=== PATIENT | male | born 1945 | race Caucasian/White ===

== ENCOUNTER 2017-03-05 13:48 | Inpatient (IN) | payer OTHER ==
[2017-03-05] VITALS (7 sets, daily range): BP systolic 169–192; BP diastolic 84–109; PULSE 79–99; TEMP 36.7–37.5; O2SAT 92–95; Ht 170.2 cm; Wt 104.4 kg
[~2017-03-05] VITALS: Ht 170.2 cm; Wt 104.4 kg
[~2017-03-05 13:48] MED LIST: ALBUAER9 INH; ALL300 PO; ASPI81TA28 PO; ATOR10TA82 PO; CLON1TAB3 PO; FERR1TAB24 PO; FURO40TA3 PO; FURO80TA63 PO; GLC5 PO; HYDR100T3 PO; LVMIPEN SQ; METO50TA16 PO; OMEP40CA PO; OXGN; PARO30TA PO; POTA20TA16 PO
[2017-03-05] MEDS ORDERED: OMEP40CA41 PO (14:34)
[2017-03-05] MEDS ORDERED: FERR1TAB61 PO (14:34)
[2017-03-05] MEDS ORDERED: ALLO300T2 PO (14:34)
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
[2017-03-05] MEDS ORDERED: ALBUT/IPRATROP 3MG/0.5MG NEB 3 ML VIAL INH STA (14:45)
[2017-03-05 14:53] LABS: BASO % 0.3 %; BASO ABS # 0.03 K/uL (0-0.2); COMPLETE YES; HEMATOCRIT 44.1 % (42-52); IG% 0.5 %; LYMPH % 10.7 %; LYMPH ABS # 1.14 K/uL (1.2-3.4); MEAN CELL VOLUME 87.5 fL (80-100); MONO % 8.1 %; NEUT % 75.4 %; PLATELET COUNT 209 K/uL (130-400); RED BLOOD COUNT 5.04 M/uL (4.7-6.1); WHITE BLOOD COUNT 10.64 K/uL (4.8-10.8)
[2017-03-05 14:59] LABS: PROTHROMBIN TIME (PATIENT) 10.4 SECONDS (9.0-12.0)
[2017-03-05 15:10] LABS: ALT/SGPT 45 U/L (12-78); AST/SGOT 27 U/L (15-37); BLOOD UREA NITROGEN 19 mg/dl (7-18); BUN/CREATININE RATIO 15.5 (10-20); CALCIUM 8.8 mg/dl (8.5-10.1); CARBON DIOXIDE 35 mmol/L (21-32); CHLORIDE 99 mmol/L (98-107); GLUCOSE 158 mg/dl (70-99); SODIUM 141 mmol/L (136-145)
--- NOTE | 2017-03-05 15:11 | DIAGNOSTIC IMAGING REPORT ---
SINGLE VIEW CHEST CLINICAL HISTORY: Dyspnea. FINDINGS: 2 AP, portable, upright chest radiographs are compared to study dated 07/20/2016 and correlated with chest CT dated 07/23/2016. The examination is degraded by portable technique, large body habitus, and patient rotation. The heart is enlarged. There is pulmonary vascular congestion. Airspace opacities likely represent a component of interstitial edema. Small pleural effusions are suspected.. No pneumothorax is seen. The skeletal structures are osteopenic. Degenerative change is noted throughout the thoracic spine. IMPRESSION: 1. Cardiomegaly with evidence of congestive failure. 2. Airspace opacities likely represent a component of interstitial edema. Correlate clinically for evidence of a superimposed infectious/inflammatory pneumonitis. 3. Suspect small pleural effusions. Electronically signed by: Carmelo Soni M.D. 03/05/2017 3:09 PM Dictated Date/Time: 03/05/2017 3:08 PM
[2017-03-05 15:14] LABS: ALKALINE PHOSPHATASE 99 U/L (45-117)
[2017-03-05] MEDS ORDERED: METHYLPREDNISOLONE 125 MG VIAL IV STA (16:14)
[2017-03-05] MEDS ORDERED: ACETAMINOPHEN 325 MG TAB PO PRN (17:45)
[2017-03-05] MEDS ORDERED: ONDANSETRON INJ 2 MG/ML 2 ML VIAL IV PRN (17:45)
[2017-03-05] MEDS ORDERED: NITROGLYCERIN 0.4 MG SL PER TAB CHARGE SL PRN (17:45)
[2017-03-05] MEDS ORDERED: ALBUAER INH (17:59)
[2017-03-05] MEDS ORDERED: CLONAZEPAM 1 MG TAB PO PRN (18:00)
[2017-03-05] MEDS ORDERED: POTASSIUM CHLORIDE 10 MEQ TABCR PO SCH (18:00)
[2017-03-05] MEDS ORDERED: FUROSEMIDE 40 MG TAB PO SCH (18:00)
[2017-03-05] MEDS ORDERED: DEXTROSE 50% 50 ML SYR IV PRN (18:00)
[2017-03-05] MEDS ORDERED: GLUCOSE 10 TABS/TUBE PO PRN (18:00)
[2017-03-05] MEDS ORDERED: GLUCAGON FOR INJ 1 MG VIAL SQ PRN (18:00)
[2017-03-05] MEDS ORDERED: GLUCOSE 40% GEL 15 GM TUBE PO PRN (18:00)
[2017-03-05] MEDS ORDERED: ALBUT/IPRATROP 3MG/0.5MG NEB 3 ML VIAL INH PRN (18:15)
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
[2017-03-05] MEDS ORDERED: FUROSEMIDE 80 MG TAB PO ONE (19:00)
[2017-03-05] MEDS: ALBUT/IPRATROP 3MG/0.5MG NEB 3 ML VIAL INH SCH (19:34)
[2017-03-05] MEDS: METOPROLOL TARTRATE 25 MG TAB PO SCH (20:01)
[2017-03-05] MEDS ORDERED: PHARMACY GLYCEMIC MGMT CONSULT PRN (20:30)
--- NOTE | 2017-03-05 20:41 | Pharmacy Progress Note ---
Glycemic Control Intl Consult Date of Service March 05, 2017. Scope Glycemic Pharmacist consulted by Dr Oneill on 03/05/17 for glycemic control and to write orders per [facility] inpatient glycemic control protocol Objective Weight (Kilograms): 137.000 Accuchecks BSG (last 24hrs): Test 03/05/17 14:40 Random Glucose 158 mg/dl (70-99) Laboratory Data (last 24hrs) Test 03/05/17 14:40 Anion Gap 7.0 mmol/L BUN/Creatinine Ratio 15.5 Blood Urea Nitrogen 19 mg/dl Creatinine 1.20 mg/dl Potassium Level 4.0 mmol/L Sodium Level 141 mmol/L White Blood Count 10.64 K/uL Red Blood Count 5.04 M/uL Hemoglobin 14.1 g/dL Hematocrit 44.1 % Mean Corpuscular Volume 87.5 fL Mean Corpuscular Hemoglobin 28.0 pg Mean Corpuscular Hemoglobin Concent 32.0 g/dl Platelet Count 209 K/uL Mean Platelet Volume 9.0 fL Neutrophils (%) (Auto) 75.4 % Lymphocytes (%) (Auto) 10.7 % Monocytes (%) (Auto) 8.1 % Eosinophils (%) (Auto) 5.0 % Basophils (%) (Auto) 0.3 % Neutrophils # (Auto) 8.03 K/uL Lymphocytes # (Auto) 1.14 K/uL Monocytes # (Auto) 0.86 K/uL Eosinophils # (Auto) 0.53 K/uL Basophils # (Auto) 0.03 K/uL Recent Pertinent Medications Outpatient Anti-diabetic Regimen: * Levemir 32 units HS * Glipizide 5 mg PO BIDM Risk Factors for Insulin Resistance: * Steroids: Solumedrol 60 mg IV X 1 in ED, Prednisone 40 mg PO daily X 5 days * Diet: T2DM Assessment & Plan ASSESSMENT: * 72 yo T2D M admitted with COPD exacerbation and initiated on steroids * Pt is maintained on Levemir + Glipizide as an outpatient * Oral agents are not recommended for inpatient use d/t drug interactions, changing PO intake, and difficulty titrating for acute hyper/hypoglycemia. ADA recommends re-initiating outpatient oral agents 1-2 days prior to discharge if/ when appropriate if they were held on admission. * Will hold Glipizide for admission and utilize SQ basal bolus insulin regimen which is the recommended regimen for inpatient glycemic control. * Will initiate weight based, stress of 2 Novolog and titrate based on BSG trends * Continue home Levemir dose- usually I reduce dose by a percentage but will maintain full dose due to steroids * Add additional Novolog checks through the night due to severe hyperglycemia * ADA & AACE recommend a goal blood sugar range 140-180 mg/dl for the majority of critically ill & non-critically ill patients. However, more stringent targets may be selected in individual cases. PLAN FOR INPATIENT GLYCEMIC CONTROL: * Basal insulin with Levemir 32 units SQ HS * NOVOLOG per scale ACHS + 00,04 * Goal Range: Low 140 mg/dL - High 180 mg/dL * Correction Factor: 15 mg/dL/unit * Nutritional / Prandial insulin per carb ratio of 1 unit per 6 grams CHO consumed * A1c added to AM labs * Please note that the plan above was derived based on current level of insulin resistance and hospital stress. These recommendations are appropriate for inpatient admission only. Plan of care upon discharge will need to be reassessed to avoid potential outpatient hypo/hyperglycemia. Thank you.
[2017-03-05] MEDS ORDERED: ATORVASTATIN 10 MG TAB PO SCH (21:00)
[2017-03-05] MEDS ORDERED: INSULIN DETEMIR FLEXPEN/FLEX TOUCH 100 UNITS/ML 3ML SQ SCH (21:00)
[2017-03-05] MEDS ORDERED: ENOXAPARIN 40 MG/0.4 ML SYR SC SCH (21:00)
[2017-03-05] MEDS: INSULIN ASPART 100 UNITS/ML 3 ML PEN SC SCH (21:41)
[2017-03-06] VITALS (8 sets, daily range): BP systolic 159–187; BP diastolic 84–120; PULSE 87–93; TEMP 36.6–36.9; O2SAT 94–95
[2017-03-06] MEDS: INSULIN ASPART 100 UNITS/ML 3 ML PEN SC SCH ×4 (00:31→11:00)
[2017-03-06 06:51] LABS: HEMATOCRIT 45.6 % (42-52); MEAN CELL VOLUME 87.4 fL (80-100); MEAN CORPUSCULAR HEMOGLOBIN 28.5 pg (25-34); MEAN CORPUSCULAR HGB CONC 32.7 g/dl (32-36); MEAN PLATELET VOLUME 9.3 fL (7.4-10.4); PLATELET COUNT 232 K/uL (130-400); RED BLOOD COUNT 5.22 M/uL (4.7-6.1); WHITE BLOOD COUNT 11.43 K/uL (4.8-10.8)
[2017-03-06 07:21] LABS: BUN/CREATININE RATIO 19.5 (10-20); CALCIUM 9.1 mg/dl (8.5-10.1); CREATININE 1.2 mg/dl (0.60-1.40); POTASSIUM 4.1 mmol/L (3.5-5.1)
[2017-03-06 07:40] LABS: ESTIMATED AVERAGE GLUCOSE 134 mg/dl; HA1C FLAG Normal (Normal)
[2017-03-06] MEDS: ALBUT/IPRATROP 3MG/0.5MG NEB 3 ML VIAL INH SCH ×2 (07:49→11:10)
[2017-03-06] MEDS ORDERED: FERROUS SULFATE 325 MG TAB PO SCH (08:00)
--- NOTE | 2017-03-06 08:31 | Pharmacy Progress Note ---
Glycemic Control: Progress Nt Date of Service March 06, 2017. Scope Glycemic Pharmacist consulted by Dr Oneill on 03/05/17 for glycemic control and to write orders per [facility] inpatient glycemic control protocol. Objective Accuchecks BSG (last 24hrs): Test 03/05/17 14:40 03/05/17 20:08 03/06/17 00:04 03/06/17 03:59 Random Glucose 158 mg/dl (70-99) Bedside Glucose 466 mg/dl (70-99) 225 mg/dl (70-99) 158 mg/dl (70-99) Test 03/06/17 06:25 03/06/17 07:27 Random Glucose 147 mg/dl (70-99) Bedside Glucose 146 mg/dl (70-99) Laboratory Data (last 24hrs) HbA1c: Test 03/06/17 06:25 Hemoglobin A1c 6.3 % (4.5-5.6) H Recent Pertinent Medications Outpatient Anti-diabetic Regimen: * Levemir 32 units HS * Glipizide 5 mg PO BIDM The patient is currently receiving: * Basal insulin: Levemir 32 units every 24 hours given at bedtime ( this is outpatient dosing) * Correctional Insulin: Novolog Correction per scale ACHS Goal Range: Low 140 mg/dL - High 180 mg/dL Correction Factor: 15 mg/dL/unit * Prandial insulin: Per carb ratio of 1 unit per 6 grams CHO consumed * Oral Agents: On hold for admission Risk Factors for Insulin Resistance: * Steroids: Solumedrol 60 mg IV X 1 in ED, Prednisone 40 mg PO daily X 5 days * Diet: T2DM Assessment & Plan ASSESSMENT: * 72 yo T2D M admitted with COPD exacerbation and initiated on steroids which will cause steroid induced hyperglycemia. Pt ordered once daily prednisone; the hyperglycemia secondary to once daily prednisone is usually well controlled with once daily NPH. However, Pt is already maintained on a basal insulin as an outpatient. Will instead use basal/bolus insulin regimen to control both steroid induced, and stress/infection induced hyperglycemia. * Pt is maintained on Levemir + Glipizide as an outpatient with excellent control per A1c today (6.3%). No changes needed to outpatient antidiabetic regimen at discharge. * Hold glipizide for admission (Oral agents are not recommended for inpatient use d/t drug interactions, changing PO intake, and difficulty titrating for acute hyper/hypoglycemia. Especially hypoglycemia inducing sulfonylureas). * Continue Levemir per outpatient dosing as this dosing is working well per A1c. AM fasting BSG is in goal range. * Weight based bolus insulin per CF/CR while glipizide is on hold. Titrate parameters with each step down in steroid dosing. * Initial hyperglycemia secondary to solumedrol seems to have resolved with RTC insulin bolus administration --> will d/c overnight accuchecks + coverage for patient comfort * ADA & AACE recommend a goal blood sugar range 140-180 mg/dl for the majority of critically ill & non-critically ill patients. However, more stringent targets may be selected in individual cases. Will utilize more stringent goal of 110-140mg/dl based on patient age, comorbidities, and tight glycemic control at baseline. Additionally, tighter glycemic control is warranted to facilitate wound/infection healing. PLAN FOR INPATIENT GLYCEMIC CONTROL: * Basal insulin * No Change, continue Levemir 32 units SQ HS (outpatient dosing) * Bolus insulin * NOVOLOG per scale ACHS (d/c 0000 & 0400 checks/coverage) * Lower Goal Range: Low 110 mg/dL - High 140 mg/dL * Continue Correction Factor: 15 mg/dL/unit * Continue Nutritional / Prandial insulin per carb ratio of 1 unit per 6 grams CHO consumed * Continue to titrate insulin doses based on steroid dosing and BSG trends. * Add A1c to discharge instructions to be communicated to PCP * Please note that the plan above was derived based on current level of insulin resistance and hospital stress. These recommendations are appropriate for inpatient admission only. Plan of care upon discharge will need to be reassessed to avoid potential outpatient hypo/hyperglycemia. Thank you.
[2017-03-06] MEDS: METOPROLOL TARTRATE 25 MG TAB PO SCH (08:32)
[2017-03-06] MEDS ORDERED: ALLOPURINOL 300 MG TAB PO SCH (09:00)
[2017-03-06] MEDS ORDERED: PANTOprazole SOD 40 MG TAB PO SCH (09:00)
[2017-03-06] MEDS ORDERED: POTASSIUM CHLORIDE 20 MEQ TABCR PO SCH (09:00)
[2017-03-06] MEDS ORDERED: ASPIRIN 81 MG ECTAB PO SCH (09:00)
[2017-03-06] MEDS ORDERED: FUROSEMIDE 80 MG TAB PO SCH (09:00)
[2017-03-06] MEDS ORDERED: PAROXETINE 30 MG TAB PO SCH (09:00)
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
[2017-03-06] MEDS ORDERED: PRD20 PO (13:35)
--- NOTE | 2017-03-06 13:37 | Discharge Instructions ---
Discharge Instructions Date of Service March 06, 2017. Admission Reason for Admission: Copd Exacerbation Discharge Discharge Diagnosis / Problem: Exacerbation of COPD Discharge Goals Goal(s): Prevent Disease Progression Activity Recommendations Activity Limitations: resume your previous activity . Instructions / Follow-Up Instructions / Follow-Up Keep appointment with Dr Rdz on Wednesday Current Hospital Diet Patient's current hospital diet: Diabetes Type 2 Diet Discharge Diet Recommended Diet: AHA Diet (Heart Healthy), Diabetes Type 2 Diet Fluid Restriction: 1500 ml (6 cups) Pending Studies Studies pending at discharge: no Laboratory Results Hemoglobin A1c Test 03/06/17 06:25 Range/Units Estimated Average Glucose 134 mg/dl Hemoglobin A1c 6.3 H 4.5-5.6 % Medical Emergencies . Who to Call and When: Medical Emergencies: If at any time you feel your situation is an emergency, please call 911 immediately. . Non-Emergent Contact Non-Emergency issues call your: Primary Care Provider . Past History Medical & Surgical History: (1) SOB (shortness of breath) (2) COPD exacerbation (3) Obstructive sleep apnea on CPAP (4) Gout (5) Restless leg syndrome (6) Diabetes mellitus type 2 (7) Pericardial effusion (8) GI bleed (9) Anxiety (10) H/O esophagogastroduodenoscopy (11) H/O colonoscopy (12) S/P tonsillectomy and adenoidectomy (13) History of pericardiotomy (14) H/O colonoscopy with polypectomy . "Provider Documentation" section prepared by Ruben Nieves. . VTE Core Measure Inpt VTE Proph given/why not?: Enoxaparin (Lovenox)SQ
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
[2017-03-06] MEDS ORDERED: FUROSEMIDE 40 MG TAB PO SCH (17:00)
[2017-03-22] MEDS ORDERED: PRD20 PO (10:03)
== END 2017-03-06 14:51 | disposition home or self-care (01) | DRG 191 ==
LOC: ENRESERVTM → ENRESERVDT → C.EDB 13:51 → C.MED 17:44
PROVIDERS: ADMIT Family Medicine; ATTEND Internal Medicine
DX: J44.1 Chronic obstructive pulmonary disease with (acute) exacerbation (principal); I50.30 Unspecified diastolic (congestive) heart failure; G47.33 Obstructive sleep apnea (adult) (pediatric); E78.5 Hyperlipidemia, unspecified; F32.9 Major depressive disorder, single episode, unspecified; F41.9 Anxiety disorder, unspecified; E66.01 Morbid (severe) obesity due to excess calories; M10.9 Gout, unspecified; G25.81 Restless legs syndrome; G25.0 Essential tremor; I11.0 Hypertensive heart disease with heart failure; E11.9 Type 2 diabetes mellitus without complications; Z99.81 Dependence on supplemental oxygen; Z99.89 Dependence on other enabling machines and devices; Z79.82 Long term (current) use of aspirin; Z68.36 Body mass index [BMI] 36.0-36.9, adult; Z79.84 Long term (current) use of oral hypoglycemic drugs; Z79.899 Other long term (current) drug therapy

== ENCOUNTER 2017-03-19 07:23 | Observation (INO) | payer OTHER ==
[2017-03-19] VITALS (11 sets, daily range): BP systolic 155–196; BP diastolic 85–103; PULSE 78–107; TEMP 36.6–37.4; O2SAT 91–97; Ht 170.2 cm; Wt 136.7 kg
[~2017-03-19] VITALS: Ht 170.2 cm; Wt 136.7 kg
[~2017-03-19 07:23] MED LIST changes: +ALBUAER INH; -ALBUAER9 INH; -ALL300 PO; +ALLO300T2 PO; -FERR1TAB24 PO; +FERR1TAB61 PO; -OMEP40CA PO; +OMEP40CA41 PO; +PRD20 PO
[2017-03-19] MEDS ORDERED: ALBUT/IPRATROP 3MG/0.5MG NEB 3 ML VIAL INH ONE (07:45)
--- NOTE | 2017-03-19 07:45 | EMERGENCY ROOM VISIT NOTE ---
History Report prepared by Yamilex: Goldy Flores Under the Supervision of: Dr. Mio Winston M.D. First contact with patient: 07:31 Chief Complaint: RESPIRATORY PROBLEMS Stated Complaint: CAN'T BREATH, WHEEZING Nursing Triage Summary: increased sob. was recently admitted for shortness of breath. "after I stopped taking the prednisone yesterday the sob came back." History of Present Illness The patient is a 72 year old male who presents to the Emergency Room with complaints of worsening respiratory problems that started a few weeks ago. He says that he was admitted here earlier this month for these respiratory problems , but his symptoms have not gone away. The patient was given a taper dose of Prednisone, and he finished taking the Prednisone yesterday, and his symptoms have worsened since then. He started the Prednisone around 9 days ago. The patient says that he is wheezing a lot, short of breath, and very congested. He is bringing mucous up. The patient states that he wears 2 liters of oxygen at home, and uses a CPAP machine. He used his nebulizer this morning. The patient denies any new leg swelling. Per the patient's , the patient took his heart medication this morning but did not take his Lasix. The patient has a history of pericardial effusions, and had fluid drained. He has never used tobacco products and he has never drank alcohol. Source of History: patient, spouse/significant other Onset: A few days ago Position: other (global - respiratory problems) Timing: worsening Associated Symptoms: + SOB Note: Associated symptoms: Wheezing, very congested. Bringing mucous up. Denies any new leg swelling. Review of Systems All systems have been listed, reviewed, and are negative other than those previously mentioned. Please see Additional Medical History Sheet. Past Medical & Surgical Medical Problems: (1) Anxiety (2) Benign essential hypertension (3) Body mass index 30+ - obesity (4) Depression (5) Diabetes mellitus type 2 (6) Diastolic heart failure (7) Dyslipidemia (8) Essential tremor (9) GI bleed (10) Gout (11) operations involv intentional restriction of air and airway (12) Obstructive sleep apnea on CPAP (13) Pericardial effusion (14) Renal cyst (15) Restless leg syndrome (16) Restrictive airway disease (17) SOB (shortness of breath) Surgical Problems: (1) H/O colonoscopy (2) H/O colonoscopy with polypectomy (3) H/O esophagogastroduodenoscopy (4) History of pericardiotomy (5) S/P tonsillectomy and adenoidectomy Family History Heart disease GRANDFATHER GRANDMOTHER Hypertension FATHER MOTHER SON Social History Smoking Status: Never Smoker Drug Use: none Marital Status: Housing Status: lives with family Occupation Status: retired Current/Historical Medications Scheduled Allopurinol (Zyloprim), 300 MG PO DAILY Aspirin (Aspirin Ec), 81 MG PO DAILY Atorvastatin (Lipitor), 10 MG PO QPM Ferrous Sulfate (Iron), 65 MG PO BID Furosemide (Lasix), 80 MG PO QAM Furosemide (Lasix), 40 MG PO AT NOON Glipizide (Glipizide), 5 MG PO BID Hydralazine HCl (Hydralazine HCl), 100 MG PO TID Insulin Detemir (Levemir Flextouch), 32 UNITS SQ HS Metoprolol Tartrate (Lopressor) (Lopressor), 75 MG PO BID Omeprazole (Prilosec), 40 MG PO DAILY Oxygen (Oxygen), 2 LITERS NA PRN Paroxetine Hcl (Paxil), 30 MG PO QAM Potassium Ext Rel (Klor-Con), 20 MEQ PO QAM Potassium Ext Rel (Klor-Con), 10 MEQ PO LUNCH Scheduled PRN Albuterol Sulfate (Proventil Hfa), 2 PUFFS INH QID PRN for SOB/Wheezing Clonazepam (Klonopin), 1 MG PO TID PRN for Anxiety Allergies Coded Allergies: Minoxidil (Verified Allergy, Intermediate, RASH, 03/05/17) "DIDN'T FEEL GOOD" Venlafaxine (Verified Allergy, Intermediate, HTN, SHAKEY, 03/05/17) Amlodipine (Verified Allergy, Unknown, 03/05/17) Clonidine (Verified Adverse Reaction, Unknown, INTOLERANT, 03/05/17) Physical Exam Vital Signs Date Time Temp Pulse Resp B/P Pulse Ox O2 Delivery O2 Flow Rate FiO2 03/19/17 09:01 78 24 96 Nasal Cannula 2.0 03/19/17 08:52 77 24 176/98 97 Nebulizer 03/19/17 08:07 97 Nasal Cannula 2.0 03/19/17 07:48 83 03/19/17 07:26 96 Nasal Cannula 2.0 03/19/17 07:26 36.6 81 22 190/88 96 Nasal Cannula 2.0 Physical Exam GENERAL: Patient awake, alert, oriented x 3. Patient follows commands. Patient does not appear toxic. Patient is adequately hydrated and well- nourished. Patient appears short of breath and has audible wheezing without stethoscope. SKIN: No erythema, pallor, cyanosis or rash HEENT: Normal head, pupils equal, reactive to light and accommodation. LUNGS: Wheezes in all parkinson. Tachypneic. HEART: No murmurs. No gallops. No rubs ABDOMEN: Obese, soft, nontender. Old mid-abdominal well-healed incision. No masses, no rebound, no hepatomegaly or splenomegaly. EXTREMITIES: No signs of trauma. No significant pretibial edema. No calf or thigh tenderness. NEUROLOGIC: Cranial nerves II-XII within normal limits. No gross motor sensory function deficits. Medical Decision & Procedures ER Provider Diagnostic Interpretation: X ray results are stated below per my interpretation and the radiologist's interpretation. TWO VIEW CHEST CLINICAL HISTORY: Wheezing. FINDINGS: PA and lateral chest radiographs are compared to study dated 03/05/2017 and correlated with chest CT dated 07/23/2016. The PA view is degraded by patient rotation. The heart is enlarged. There is pulmonary vasculature is noncongested. Bibasilar atelectasis is observed. No focal airspace consolidation or pleural effusion is identified. No pneumothorax is seen. The skeletal structures are osteopenic. Degenerative change is noted throughout the thoracic spine. IMPRESSION: Cardiomegaly with no acute cardiopulmonary abnormality. Electronically signed by: Carmelo Soni M.D. 03/19/2017 8:38 AM Dictated Date/Time: 03/19/2017 8:35 AM Laboratory Results 03/19/17 08:00 Red Blood Count 5.43, Mean Corpuscular Volume 87.7, Mean Corpuscular Hemoglobin 28.2, Mean Corpuscular Hemoglobin Concent 32.1, Mean Platelet Volume 9.1, Neutrophils (%) (Auto) 77.9, Lymphocytes (%) (Auto) 11.9, Monocytes (%) (Auto) 7.6, Eosinophils (%) (Auto) 1.6, Basophils (%) (Auto) 0.2, Neutrophils # (Auto) 11.95, Lymphocytes # (Auto) 1.83, Monocytes # (Auto) 1.16, Eosinophils # (Auto) 0.25, Basophils # (Auto) 0.03 03/19/17 08:00 Test 03/19/17 07:59 03/19/17 08:00 Influenza Type A (RT-PCR) Neg for Influ A (NEG) Influenza Type B (RT-PCR) Neg for Influ B (NEG) White Blood Count 15.35 K/uL (4.8-10.8) Red Blood Count 5.43 M/uL (4.7-6.1) Hemoglobin 15.3 g/dL (14.0-18.0) Hematocrit 47.6 % (42-52) Mean Corpuscular Volume 87.7 fL (80-100) Mean Corpuscular Hemoglobin 28.2 pg (25-34) Mean Corpuscular Hemoglobin Concent 32.1 g/dl (32-36) Platelet Count 226 K/uL (130-400) Mean Platelet Volume 9.1 fL (7.4-10.4) Neutrophils (%) (Auto) 77.9 % Lymphocytes (%) (Auto) 11.9 % Monocytes (%) (Auto) 7.6 % Eosinophils (%) (Auto) 1.6 % Basophils (%) (Auto) 0.2 % Neutrophils # (Auto) 11.95 K/uL (1.4-6.5) Lymphocytes # (Auto) 1.83 K/uL (1.2-3.4) Monocytes # (Auto) 1.16 K/uL (0.11-0.59) Eosinophils # (Auto) 0.25 K/uL (0-0.5) Basophils # (Auto) 0.03 K/uL (0-0.2) RDW Standard Deviation 60.4 fL (36.4-46.3) RDW Coefficient of Variation 18.6 % (11.5-14.5) Immature Granulocyte % (Auto) 0.8 % Immature Granulocyte # (Auto) 0.13 K/uL (0.00-0.02) Anion Gap 7.0 mmol/L (3-11) Estimated GFR () 64.1 Estimated GFR (Non- 55.3 BUN/Creatinine Ratio 25.5 (10-20) Calcium Level 8.7 mg/dl (8.5-10.1) Total Bilirubin 1.1 mg/dl (0.2-1) Aspartate Amino Transf (AST/SGOT) 18 U/L (15-37) Alanine Aminotransferase (ALT/SGPT) 49 U/L (12-78) Alkaline Phosphatase 85 U/L (45-117) Troponin I < 0.015 ng/ml (0-0.045) Total Protein 7.1 gm/dl (6.4-8.2) Albumin 3.4 gm/dl (3.4-5.0) Globulin 3.7 gm/dl (2.5-4.0) Albumin/Globulin Ratio 0.9 (0.9-2) Laboratory results as stated above per my review. Medications Administered Medications (Trade) Dose Ordered Sig/Tamera Route Start Time Stop Time Status Last Admin Dose Admin Albuterol/ Ipratropium (Duoneb) 12 ml ONE ONCE INH 03/19/17 07:45 03/19/17 07:46 DC 03/19/17 09:01 12 ML Acetaminophen (Tylenol Tab) 650 mg NOW STAT PO 03/19/17 08:44 03/19/17 08:45 DC 03/19/17 08:49 650 MG Methylprednisolone Sodium Succinate (Solu-Medrol IV) 80 mg NOW STAT IV 03/19/17 09:53 03/19/17 09:55 DC 03/19/17 09:59 80 MG ECG Indication: SOB/dyspnea Rate (beats per minute): 78 Rhythm: normal sinus Findings: no acute ischemic change, no ectopy ED Course 0733: Past medical records reviewed. The patient was evaluated in room B6. A complete history and physical examination was performed. 0745: Ordered Duoneb 12 ml INH. 0844: Ordered Tylenol Tab 650 mg PO. 0943: I reevaluated the patient and he is near the end of his breathing treatment but is still wheezing. His white count is up slightly. The patient verbally expressed understanding and agreement of the treatment plan. The patient will be evaluated for further treatment. 0952: I discussed the patient with Odessa Melendez - she will evaluate the patient for further treatment. 0953: Ordered Solu-Medrol IV 80 mg IV. Medical Decision Nurses notes reviewed. Medical history sheet reviewed. Differential diagnosis includes but is not limited to: pneumonia, bronchitis, CHF, COPD. The patient is an oxygen dependent COPD patient who now has increased shortness of breath. The patient received an albuterol treatment prior to entry and another hour-long treatment here. He continued to wheeze. White count was minimally elevated. Chest x-ray reveals questionable increased markings in the right base. The patient will require further evaluation in the hospital. I discussed care with the patient, his and the hospitalist. Consults Time Called: [phone] Consulting Physician: Odessa Melendez Returned Call: [phone] I discussed the patient with Odessa Melendez - she will evaluate the patient for further treatment. Impression Primary Impression: COPD with acute exacerbation Scribe Attestation The scribe's documentation has been prepared under my direction and personally reviewed by me in its entirety. I confirm that the note above accurately reflects all work, treatment, procedures, and medical decision making performed by me. Departure Information Dispostion Being Evaluated By Hospitalist Referrals Keyon Rdz D.OChang (PCP) Patient Instructions My [facility]
[2017-03-19 08:24] LABS: BASO % 0.2 %; BASO ABS # 0.03 K/uL (0-0.2); COMPLETE YES; EOS % 1.6 %; HEMATOCRIT 47.6 % (42-52); IG% 0.8 %; LYMPH % 11.9 %; LYMPH ABS # 1.83 K/uL (1.2-3.4); MEAN CELL VOLUME 87.7 fL (80-100); MEAN CORPUSCULAR HEMOGLOBIN 28.2 pg (25-34); MEAN CORPUSCULAR HGB CONC 32.1 g/dl (32-36); MEAN PLATELET VOLUME 9.1 fL (7.4-10.4); MONO % 7.6 %; NEUT % 77.9 %; PLATELET COUNT 226 K/uL (130-400); RED BLOOD COUNT 5.43 M/uL (4.7-6.1); WHITE BLOOD COUNT 15.35 K/uL (4.8-10.8)
--- NOTE | 2017-03-19 08:39 | DIAGNOSTIC IMAGING REPORT ---
TWO VIEW CHEST CLINICAL HISTORY: Wheezing. FINDINGS: PA and lateral chest radiographs are compared to study dated 03/05/2017 and correlated with chest CT dated 07/23/2016. The PA view is degraded by patient rotation. The heart is enlarged. There is pulmonary vasculature is noncongested. Bibasilar atelectasis is observed. No focal airspace consolidation or pleural effusion is identified. No pneumothorax is seen. The skeletal structures are osteopenic. Degenerative change is noted throughout the thoracic spine. IMPRESSION: Cardiomegaly with no acute cardiopulmonary abnormality. Electronically signed by: Carmelo Soni M.D. 03/19/2017 8:38 AM Dictated Date/Time: 03/19/2017 8:35 AM
[2017-03-19 08:41] LABS: ALT/SGPT 49 U/L (12-78); BLOOD UREA NITROGEN 33 mg/dl (7-18); BUN/CREATININE RATIO 25.5 (10-20); CALCIUM 8.7 mg/dl (8.5-10.1); CARBON DIOXIDE 33 mmol/L (21-32); CHLORIDE 99 mmol/L (98-107); GLUCOSE 153 mg/dl (70-99); POTASSIUM 3.7 mmol/L (3.5-5.1); SODIUM 139 mmol/L (136-145)
[2017-03-19] MEDS ORDERED: ACETAMINOPHEN 325 MG TAB PO STA (08:44)
[2017-03-19 08:46] LABS: ALB/GLOB RATIO 0.9 (0.9-2); ALKALINE PHOSPHATASE 85 U/L (45-117); AST/SGOT 18 U/L (15-37)
[2017-03-19] MEDS ORDERED: METHYLPREDNISOLONE 125 MG VIAL IV STA (09:53)
[2017-03-19 10:00] LABS: INFLUENZA A PCR Neg for Influ A (NEG); INFLUENZA B PCR Neg for Influ B (NEG)
[2017-03-19] MEDS ORDERED: ONDANSETRON INJ 2 MG/ML 2 ML VIAL IV PRN (10:30)
[2017-03-19] MEDS ORDERED: ACETAMINOPHEN 325 MG TAB PO PRN (10:30)
[2017-03-19] MEDS ORDERED: GLUCOSE 10 TABS/TUBE PO PRN (10:30)
[2017-03-19] MEDS ORDERED: GLUCAGON FOR INJ 1 MG VIAL SQ PRN (10:30)
[2017-03-19] MEDS ORDERED: GLUCOSE 40% GEL 15 GM TUBE PO PRN (10:30)
[2017-03-19] MEDS ORDERED: DEXTROSE 50% 50 ML SYR IV PRN (10:30)
[2017-03-19] MEDS ORDERED: CLONAZEPAM 1 MG TAB PO PRN (10:30)
[2017-03-19] MEDS ORDERED: PHARMACY GLYCEMIC MGMT CONSULT PRN (10:33)
--- NOTE | 2017-03-19 10:42 | History and Physical ---
History & Physical Date & Time of Service: March 19, 2017 at 10:26 Chief Complaint: Can't Breath, Wheezing Primary Care Physician: Keyon Rdz D.O. History of Present Illness Source: patient, family, clinic records, hospital records Patient seen and examined. 72 year old male with PMHx of COPD with chronic respiratory failure on 2L NC, DM2, HTN, Diastolic CHF, HLD and other problems listed below presents to the ED complaining of SOB x several days. Patient was recently discharge from this hospital on March 06 following admission for COPD exacerbation. He was discharged home on prednisone taper and states he still had some days of SOB and other days that were better. He reports he finished his taper yesterday and today his SOB seemed much worse. He reports audible wheezing. He has been using his nebulizer at home which does help. His states she had a cold last week and that his symptoms appear similar. He reports occasional cough. He denies fevers, chills, chest pain, palpitations, nausea, vomiting, diarrhea, dysuria, calf pain and edema. He is a lifelong non- smoker. He does not follow with a ekg/ecg technician. In the ED patient is saturating well on his 2L NC. BP is elevated, WBC count is 15K, other lab work is unremarkable. CXR is negative for consolidation. He received Duonebs and still has audible wheezing. He received IV solu-medrol. He will be observed for further workup and treatment. Past Medical/Surgical History Medical Problems: (1) Anxiety Status: Chronic (2) Benign essential hypertension Status: Chronic (3) Body mass index 30+ - obesity Status: Chronic (4) Depression Status: Chronic (5) Diabetes mellitus type 2 Status: Chronic (6) Diastolic heart failure Status: Chronic (7) Dyslipidemia Status: Chronic (8) Essential tremor Status: Chronic (9) GI bleed Status: Resolved (10) Gout Status: Chronic (11) operations involv intentional restriction of air and airway Status: Chronic (12) Obstructive sleep apnea on CPAP Status: Chronic (13) Pericardial effusion Status: Resolved (14) Renal cyst Status: Chronic (15) Restless leg syndrome Status: Chronic (16) Restrictive airway disease Status: Chronic Surgical Problems: (1) H/O colonoscopy Permanent Comment: 04/09/2014- adenomatous & TVA polyps, diverticulosis 04/29/2015- normal Status: Chronic (2) H/O colonoscopy with polypectomy Permanent Comment: 2012 - 4 polyps, adenomatous Status: Resolved (3) H/O esophagogastroduodenoscopy Permanent Comment: 03/15/2014- mild-mod inflammation Status: Chronic (4) History of pericardiotomy Status: Resolved (5) S/P tonsillectomy and adenoidectomy Status: Chronic Family History Heart disease GRANDFATHER GRANDMOTHER Hypertension FATHER MOTHER SON Social History Smoking Status: Never Smoker Alcohol Use: none Drug Use: none Marital Status: Housing status: lives with family Occupational Status: retired Immunizations History of Influenza Vaccine: Yes Influenza Vaccine Date: Sep 01, 2013 History of Tetanus Vaccine?: Yes Tetanus Immunization Date: Jan 18, 2013 History of Pneumococcal: Yes Pneumococcal Date: Jun 20, 2009 History of Hepatitis B Vaccine: No Multi-Drug Resistant Organisms History of MDRO: No Allergies Coded Allergies: Minoxidil (Verified Allergy, Intermediate, RASH, 03/05/17) "DIDN'T FEEL GOOD" Venlafaxine (Verified Allergy, Intermediate, HTN, SHAKEY, 03/05/17) Amlodipine (Verified Allergy, Unknown, 03/05/17) Clonidine (Verified Adverse Reaction, Unknown, INTOLERANT, 03/05/17) Home Medications Scheduled Allopurinol (Zyloprim), 300 MG PO DAILY Aspirin (Aspirin Ec), 81 MG PO DAILY Atorvastatin (Lipitor), 10 MG PO QPM Ferrous Sulfate (Iron), 65 MG PO BID Furosemide (Lasix), 80 MG PO QAM Furosemide (Lasix), 40 MG PO AT NOON Glipizide (Glipizide), 5 MG PO BID Hydralazine HCl (Hydralazine HCl), 100 MG PO TID Insulin Detemir (Levemir Flextouch), 32 UNITS SQ HS Metoprolol Tartrate (Lopressor) (Lopressor), 75 MG PO BID Omeprazole (Prilosec), 40 MG PO DAILY Oxygen (Oxygen), 2 LITERS NA PRN Paroxetine Hcl (Paxil), 30 MG PO QAM Potassium Ext Rel (Klor-Con), 20 MEQ PO QAM Potassium Ext Rel (Klor-Con), 10 MEQ PO LUNCH Scheduled PRN Albuterol Sulfate (Proventil Hfa), 2 PUFFS INH QID PRN for SOB/Wheezing Clonazepam (Klonopin), 1 MG PO TID PRN for Anxiety Review of Systems Constitutional: No chills, No fever Eyes: No worsening of vision ENT: No nasal symptoms Respiratory: + cough, + dyspnea at rest, + dyspnea on exertion, + shortness of breath, + wheezing Cardiovascular: No chest pain, No edema, No palpitations Abdomen: No constipation, No diarrhea, No nausea, No pain, No vomiting Musculoskeletal: No calf pain, No swelling Genitourinary - Male: No dysuria Neurologic: No numbness/tingling, No vertigo Psychiatric: No anxiety, No insomnia Endocrine: No fatigue Hematologic / Lymphatic: No abnormal bleeding/bruising, No clotting problems Integumentary: No itch, No rash Allergic / Immunologic: No environmental allergies Physical Exam Vital Signs Date Time Temp Pulse Resp B/P Pulse Ox O2 Delivery O2 Flow Rate FiO2 03/19/17 09:01 78 24 96 Nasal Cannula 2.0 03/19/17 08:52 77 24 176/98 97 Nebulizer 03/19/17 08:07 97 Nasal Cannula 2.0 03/19/17 07:48 83 03/19/17 07:26 96 Nasal Cannula 2.0 03/19/17 07:26 36.6 81 22 190/88 96 Nasal Cannula 2.0 General Appearance: + pertinent finding (Pleasant obese 72 year old male sitting in bed, with audible wheezing but NAD, with at bedside ) Head: normocephalic, atraumatic Eyes: PERRL, EOMI, sclerae normal ENT: hearing grossly normal, pharynx normal Neck: supple, no JVD Respiratory/Chest: chest non-tender, no respiratory distress, no accessory muscle use, + pertinent finding (Decreased breath sounds/air movement, diffuse wheezing throughout all lung parkinson, no crackles or rales) Cardiovascular: regular rate, rhythm, no gallop, no JVD, no murmur, normal peripheral pulses Abdomen/GI: normal bowel sounds, non tender, soft Back: normal inspection, no muscle spasm Extremities/Musculoskelatal: no calf tenderness, normal capillary refill, + pedal edema (trace) Neurologic/Psych: alert, oriented x 3, + pertinent finding (nonfocal ) Skin: normal color, warm/dry, no rash Lymphatic: no adenopathy Diagnostics Laboratory Results Results Past 24 Hours Test 03/19/17 07:59 5/19/17 08:00 Range/Units Influenza Type A (RT-PCR) Neg for Influ A NEG Influenza Type B (RT-PCR) Neg for Influ B NEG White Blood Count 15.35 4.8-10.8 K/uL Red Blood Count 5.43 4.7-6.1 M/uL Hemoglobin 15.3 14.0-18.0 g/dL Hematocrit 47.6 42-52 % Mean Corpuscular Volume 87.7 80-100 fL Mean Corpuscular Hemoglobin 28.2 25-34 pg Mean Corpuscular Hemoglobin Concent 32.1 32-36 g/dl Platelet Count 226 130-400 K/uL Mean Platelet Volume 9.1 7.4-10.4 fL Neutrophils (%) (Auto) 77.9 % Lymphocytes (%) (Auto) 11.9 % Monocytes (%) (Auto) 7.6 % Eosinophils (%) (Auto) 1.6 % Basophils (%) (Auto) 0.2 % Neutrophils # (Auto) 11.95 1.4-6.5 K/uL Lymphocytes # (Auto) 1.83 1.2-3.4 K/uL Monocytes # (Auto) 1.16 0.11-0.59 K/uL Eosinophils # (Auto) 0.25 0-0.5 K/uL Basophils # (Auto) 0.03 0-0.2 K/uL RDW Standard Deviation 60.4 36.4-46.3 fL RDW Coefficient of Variation 18.6 11.5-14.5 % Immature Granulocyte % (Auto) 0.8 % Immature Granulocyte # (Auto) 0.13 0.00-0.02 K/uL Sodium Level 139 136-145 mmol/L Potassium Level 3.7 3.5-5.1 mmol/L Chloride Level 99 98-107 mmol/L Carbon Dioxide Level 33 21-32 mmol/L Anion Gap 7.0 3-11 mmol/L Blood Urea Nitrogen 33 7-18 mg/dl Creatinine 1.30 0.60-1.40 mg/dl Estimated GFR () 64.1 Estimated GFR (Non- 55.3 BUN/Creatinine Ratio 25.5 10-20 Random Glucose 153 70-99 mg/dl Calcium Level 8.7 8.5-10.1 mg/dl Total Bilirubin 1.1 0.2-1 mg/dl Aspartate Amino Transf (AST/SGOT) 18 15-37 U/L Alanine Aminotransferase (ALT/SGPT) 49 12-78 U/L Alkaline Phosphatase 85 45-117 U/L Troponin I < 0.015 0-0.045 ng/ml Total Protein 7.1 6.4-8.2 gm/dl Albumin 3.4 3.4-5.0 gm/dl Globulin 3.7 2.5-4.0 gm/dl Albumin/Globulin Ratio 0.9 0.9-2 Microbiology Results 03/19/17 Blood Culture, Received Pending 03/19/17 Blood Culture, Received Pending Diagnostic Radiology CXR Per radiologist read: IMPRESSION: Cardiomegaly with no acute cardiopulmonary abnormality. EKG NSR 78 BPM, QTc 428 Impression Assessment and Plan 72 year old male with COPD presents to the ED complaining of worsening SOB, wheezing. Just finished prednisone taper yesterday. ACUTE COPD EXACERBATION -Observation in tele -CXR: without consolidation, WBC count 15K likely secondary to steroid use, afebrile -Saturating well on Chronic 2L O2 NC -IV Solu-Medrol given in ED, will continue -Duonebs scheduled and prn -continue home oxygen therapy titrate prn -Pulmonology consult placed for further recommendation as this is patient's second admission in 2 weeks, input appreciated -CBC, PRP in AM HTN -running high, will monitor in tele overnight -Due for Hydralazine, Lasix this afternoon -continue BB, Hydralazine, Lasix -monitor closely titrate meds prn DM2 -recent A1c 6.3 -Hold po diabetic agents -SSI coverage -BSG AC HS -Consistent carbohydrate diet -Pharmacy consult placed for glycemic control in setting of IV steroids DIASTOLIC CHF -echo 11/2016 EF 60-64% with grade II diastolic dysfunction -appears euvolemic -continue BB, Lasix and hydralazine -monitor for fluid overload DEPRESSION/ANXIETY -continue Paxil and Klonopin RENE -continue CPAP DYSLIPIDEMIA -continue statin GOUT -continue Allopurinol DVT PROPHYLAXIS: Lovenox Sq CODE STATUS: FULL CODE DISPO:observation pending further workup Patient seen in collaboration with Dr. Osborn ATTENDING ADDENDUM : record reviewed Pt interviewed and examined care coordinated with Odessa RAZO See her documentation for detail patient history Briefly this is a 72 yo M with hx of chronic respiratory failure due to COPD 02 dependent ( on home 02 2 L NC ) , obesity hypoventilation syndrome with chronic rt heart failure , Diastolic CHF , RENE - Recently discharged form [facility] on 03/06 with Dx of COPD pt mentions he did well for few days at home , then having progressive wheeze and [place] this morning developed severe SOB , unable to take deep breath felt better after 1 hr long Neb tx in ED during my interview , pt appeared to be comfortable no evidence of respiratory distress, no audible wheeze P/E: gen : no apparent distress HEENT: sclera non icteric HT : regular S1/S2 Lungs; diminished, no audible wheeze or rales abdomen ; soft, non tender ext ; trace bilat lower ext edema neuro; no focal neurological deficit, AAO x3 A/P : ACUTE ON CHRONIC RESPIRATORY FAILURE: due to COPD exacerbation improved after Duo neb tx Iv Solu Medrol Cxray shows -no evidence of pulmonary congestion /no infiltrate cont respiratory support IV Solu Medrol , Duo Neb tx scheduled QID and PRN Q 2hrs Pulmonology eval requested HX OF CHRONIC DIASTOLIC FAILURE Last ECHO : EF 65-70 % , grade 2 diastolic dysfunction cont home dose of Lasix monitor vol status -daily wt /I's /O's HTN : BP was elevated in ED possible due to respiratory distress cont home antihypertensives-Hydralazine 100 mg TID Lopressor 75 mg BID On Lasix 80 mg AM /40 mg at noon monitor in Tele PRN IV hydralazine for SBP > 160 respiratory support as outlined above TYPE 2 DM : reasonable controlled as per recent Hb A1C expect to have steroid induced hyperglycemia with IV Solu Medrol cont on Glipizide cont on Basal long acting insulin and additional short acting sliding scale coverage Pharmacy consulted for glycemic management HYPERLIPIDEMIA : cont Lipitor FULL CODE DVT PROPHYLAXIS: moderate to high risk Sub q Lovenox Please refer to Documentation by Jese Pino PA-C for further discussion of other issues Corry Osborn MD Level of Care Telemetry VTE Prophylaxis VTE Risk Assessment Done? Y/N: Yes Risk Level: Moderate Given or contraindicated: Enoxaparin (Lovenox)SQ Additional Copies To Keyon Rdz D.O.
[2017-03-19] MEDS: INSULIN ASPART 100 UNITS/ML 3 ML PEN SC SCH ×3 (11:00→20:49)
[2017-03-19] MEDS ORDERED: PATIENT'S HEIGHT AND/OR WEIGHT NEEDED STA (11:01)
[2017-03-19] MEDS: ALBUT/IPRATROP 3MG/0.5MG NEB 3 ML VIAL INH SCH ×4 (12:06→21:59)
[2017-03-19] MEDS ORDERED: IV FLUIDS COMPLETED PRN (12:45)
[2017-03-19] MEDS: FUROSEMIDE 40 MG TAB PO SCH (14:01)
[2017-03-19] MEDS: POTASSIUM CHLORIDE 10 MEQ TABCR PO SCH (14:01)
[2017-03-19] MEDS: ENOXAPARIN 40 MG/0.4 ML SYR SC SCH (14:07)
--- NOTE | 2017-03-19 14:17 | Pharmacy Progress Note ---
Glycemic Control Intl Consult Date of Service March 19, 2017. Scope Glycemic Pharmacist consulted for glycemic control and to write orders per [facility] inpatient glycemic control protocol Objective Weight (Kilograms): 135.600 Accuchecks BSG (last 24hrs): Test 03/19/17 08:00 Random Glucose 153 mg/dl (70-99) Laboratory Data (last 24hrs) Test 03/19/17 08:00 Anion Gap 7.0 mmol/L BUN/Creatinine Ratio 25.5 Blood Urea Nitrogen 33 mg/dl Creatinine 1.30 mg/dl Potassium Level 3.7 mmol/L Sodium Level 139 mmol/L White Blood Count 15.35 K/uL Red Blood Count 5.43 M/uL Hemoglobin 15.3 g/dL Hematocrit 47.6 % Mean Corpuscular Volume 87.7 fL Mean Corpuscular Hemoglobin 28.2 pg Mean Corpuscular Hemoglobin Concent 32.1 g/dl Platelet Count 226 K/uL Mean Platelet Volume 9.1 fL Neutrophils (%) (Auto) 77.9 % Lymphocytes (%) (Auto) 11.9 % Monocytes (%) (Auto) 7.6 % Eosinophils (%) (Auto) 1.6 % Basophils (%) (Auto) 0.2 % Neutrophils # (Auto) 11.95 K/uL Lymphocytes # (Auto) 1.83 K/uL Monocytes # (Auto) 1.16 K/uL Eosinophils # (Auto) 0.25 K/uL Basophils # (Auto) 0.03 K/uL Recent Pertinent Medications Outpatient Anti-diabetic Regimen: * Levemir 32 units SC qHS * Glipizide 5 mg po BID * A1c = 6.3 % on 03/06/17 Risk Factors for Insulin Resistance: * Steroids: Methylprednisolone 80 mg IV x1 then 40 mg IV q8h * Diet Assessment & Plan ASSESSMENT: * ADA & AACE recommend a goal blood sugar range 140-180 mg/dl for the majority of critically ill & non-critically ill patients. However, more stringent targets may be selected in individual cases. * Pt is maintained on oral antidiabetic agents as an outpatient * Oral agents are not recommended for inpatient use d/t drug interactions, changing PO intake, and difficulty titrating for acute hyper/hypoglycemia. ADA recommends re-initiating outpatient oral agents 1-2 days prior to discharge if/ when appropriate if they were held on admission. * Will hold oral agents for admission and utilize SQ basal bolus insulin regimen which is the recommended regimen for inpatient glycemic control. * Will continue home Levemir dose. * Will add weight-based Novolog based on moderate stress PLAN FOR INPATIENT GLYCEMIC CONTROL: * Holding outpatient oral diabetes medications * Basal insulin with LEVEMIR 32 units SQ HS * Correctional Insulin with NOVOLOG per scale ACHS or Q6hrs while NPO * Goal Range: Low 120 mg/dL - High 150 mg/dL * Correction Factor: 15 mg/dL/unit * Nutritional / Prandial insulin per carb ratio of 1 unit per 6 grams CHO consumed * Please note that the plan above was derived based on current level of insulin resistance and hospital stress. These recommendations are appropriate for inpatient admission only. Plan of care upon discharge will need to be reassessed to avoid potential outpatient hypo/hyperglycemia. Thank you.
--- NOTE | 2017-03-19 16:42 | Pulmonary Consultation ---
History General Date of Service: March 19, 2017. Stated Complaint: Copd With Acute Exacerbation, Sob HPI The patient is a 72 year old male who presents to [facility] with complaints of Copd With Acute Exacerbation, Sob. The patient's primary care provider is Keyon Rdz D.O.. This 72 y/o male was admitted for acute on chronic respiratory distress. He has a PmHx significant for: moderate OVD and sever RVD, oxygen dependent (2L NC) , diastolic heart failure, RENE. He was d/c from the [facility] on 03/6117 after a similar espisode and per the records weighed 104.4Kg now 135.6Kg which is an increase of 69lbs. The patient notes an increased MCGOWAN over the last 6 months only able to ambulate for 10ft and prior to that only 50ft. He denies: wt lose , cardiac chest pain, chronic cough, pleurisy, fever, chills Current Work-Up EKG: NSR, rate 80 CXR: cardiomegaly with cephalization and justin-bronchial cuffing improved as compared to 03/05/17 WBC: 16K BUN/Cr: 33/1.3 T-Bili: 1.1 CO2: 33 Influenza A&B (PCR): negative Current Wt: 135.6Kg discharge weight on 03/06/2017: 104.4Kg (an increase of 69lbs) Previous Work-Up Cardiac Echo (07/21/16) LV: EF=65-70% RV: WNL, TAPSE >1.5cm LA: mild dilation No ASD Grade II dysfunction with pseudo-normalization pattern PFT (2006) dictated by Dr. Matos FEV1: 1.97/61% FVC: 2.66/66% FEV1/FVC: 74 T.38/55% RV: .65/29% ERV: 0.29/20% DLCO: 24.7/83% DL/VA: 170% CT Thorax (07/23/16) compared to (07/20/16) 1. No evidence of PE in the main, lobar, or proximal segmental pulmonary arteries. 2. Cardiomegaly 3. Mild diffuse intralobular septal thickening as well as peribronchial thickening 4. Small to moderate pleural effusions, right larger than left 5. Marked splenomegaly. 6. Hepatic steatosis. 7. bilateral Pleural thickening 8. Possible EDAC DVT study (07/20/16) No signs of DVT Historian: patient, EMS Review of Systems Constitutional: reports: malaise, weakness Eyes: reports: visual changes ENT: reports: no symptoms Cardiovascular: reports: no symptoms Respiratory: reports: MCGOWAN, shortness of breath, wheezing Gastrointestinal: reports: no symptoms Genitourinary - Male: reports: no symptoms Musculoskeletal: reports: back pain Integumentary: reports: no symptoms Neurologic: reports: no symptoms Psychiatric: reports: no symptoms Endocrine: no symptoms Hematologic / Lymphatic: no symptoms Allergic / Immunologic: no symptoms Past Medical History Past Medical History: (1) Anxiety (2) Benign essential hypertension (3) Body mass index 30+ - obesity (4) Depression (5) Diabetes mellitus type 2 (6) Diastolic heart failure (7) Dyslipidemia (8) Essential tremor (9) GI bleed (10) Gout (11) operations involved intentional restriction of air and airway (12) Moderatly sever obstructive sleep apnea on CPAP [id number] (13) Pericardial effusion (14) Renal cyst (15) Restless leg syndrome (16) Restrictive airway disease (17) COPD (2007 moderate OVD) PFT (2006) dictated by Dr. Matos FEV1: 1.97/61% FVC: 2.66/66% FEV1/FVC: 74 T.38/55% RV: .65/29% ERV: 0.29/20% DLCO: 24.7/83% DL/VA: 170% (18) Sever RVD (21) Oxygen dependent 2L nc (22) deiverticulosis (23) Hypertension (24) Pericardial Effusion Past Surgical History: 1. Colonoscopy 04/09/2014- adenomatous & TVA polyps, diverticulosis 2. colonoscopy with polypectomy 3. esophagogastroduodenoscopy 03/15/2014- mild-mod inflammation 4. pericardiotomy x2 5. S/P tonsillectomy and adenoidectomy Family History Heart disease GRANDFATHER GRANDMOTHER Hypertension FATHER MOTHER SON Heart disease GRANDFATHER GRANDMOTHER Hypertension FATHER MOTHER SON Social History Smoking Status: Never Smoker 2nd Hand Smoke Exposure: significant Alcohol Use: none Drug Use: none Marital Status: Housing status: lives with family Occupational Status: retired crane hoist or lift operator for 35 years Hx Tobacco Use In Past Year?: No Smoking Status: Never Smoker Marital status: Housing status: lives with family Occupational Status: retired Immunizations History of Influenza Vaccine: Yes Influenza Vaccine Date: Sep 01, 2013 History of Tetanus Vaccine?: Yes Tetanus Immunization Date: Jan 18, 2013 History of Pneumococcal: Yes Pneumococcal Date: Jun 20, 2009 History of Hepatitis B Vaccine: No History of MDRO History of MDRO: No Allergies Coded Allergies: Minoxidil (Verified Allergy, Intermediate, RASH, 03/05/17) "DIDN'T FEEL GOOD" Venlafaxine (Verified Allergy, Intermediate, HTN, SHAKEY, 03/05/17) Amlodipine (Verified Allergy, Unknown, 03/05/17) Clonidine (Verified Adverse Reaction, Unknown, INTOLERANT, 03/05/17) Current Medications Reported Home Medications Medications Dose Route/Sig Max Daily Dose Days Date Category Dose Instructions Proventil Hfa (Albuterol Sulfate) 108 Mcg/Act Aer 2 Puffs INH QID PRN 03/05/17 Reported Zyloprim (Allopurinol) 300 Mg Tab 300 Mg PO DAILY 03/05/17 Reported Iron (Ferrous Sulfate) 45 Mg Tab 65 Mg PO BID 03/05/17 Reported Prilosec (Omeprazole) 40 Mg Cap 40 Mg PO DAILY 03/05/17 Reported Oxygen Gas 2 Liters NA PRN 07/20/16 Reported Lopressor (Metoprolol Tartrate) 50 Mg Tab 75 Mg PO BID 07/20/16 Reported Paxil (Paroxetine Hcl) 30 Mg Tab 30 Mg PO QAM 07/20/16 Reported Klor-Con (Potassium Chloride) 20 Meq Tabcr 10 Meq PO LUNCH 07/20/16 Reported Hydralazine HCl 100 Mg Tab 100 Mg PO TID 07/20/16 Reported Lasix (Furosemide) 40 Mg Tab 40 Mg PO AT NOON 04/26/15 Reported Levemir Flextouch (Insulin Detemir) 100 Unit/Ml Inj 32 Units SQ HS 04/26/15 Reported Glipizide 5 Mg Tab 5 Mg PO BID 02/05/15 Reported 30 MINUTES BEFORE MEALS Lipitor (Atorvastatin Calcium) 10 Mg Tab 10 Mg PO QPM 11/09/14 Reported Lasix (Furosemide) 80 Mg Tab 80 Mg PO QAM 04/06/14 Reported Aspirin Ec (Aspirin) 81 Mg Tab 81 Mg PO DAILY 03/14/14 Reported Klor-Con (Potassium Chloride) 20 Meq Tabcr 20 Meq PO QAM 03/14/14 Reported Klonopin (Clonazepam) 1 Mg Tab 1 Mg PO TID PRN 04/16/11 Reported Physical Physical Exam Vital Signs: Date Time Temp Pulse Resp B/P Pulse Ox O2 Delivery O2 Flow Rate FiO2 03/19/17 15:30 37.0 94 20 196/103 94 Nasal Cannula 2.0 03/19/17 12:15 36.6 85 20 170/85 95 Nasal Cannula 2.0 03/19/17 12:06 82 24 96 Nasal Cannula 2.0 03/19/17 11:12 82 22 164/92 95 Nasal Cannula 2.0 03/19/17 10:57 83 03/19/17 09:01 78 24 96 Nasal Cannula 2.0 03/19/17 08:52 77 24 176/98 97 Nebulizer 03/19/17 08:07 97 Nasal Cannula 2.0 03/19/17 07:48 83 03/19/17 07:26 96 Nasal Cannula 2.0 03/19/17 07:26 36.6 81 22 190/88 96 Nasal Cannula 2.0 General Appearance: moderate distress, obese Head: NORMOCEPHALIC, ATRAUMATIC Eyes: PERRLA, NO DISCHARGE, EOMI, SCLERAE NORMAL ENT: NORMAL EAR EXAM, NORMAL NASAL EXAM, NORMAL MOUTH EXAM, NORMAL THROAT EXAM Neck: other (diameter >18cm, short thick ) Respiratory: other (inspiratory and expiratory wheezing/ US demonstrates B- lines and the bilateral basis) Cardiovasular: REGULAR RATE/RHYTHM, NORMAL S1S2, NO M/G/R Abdomen: NON TENDER, NORMAL BOWEL SOUNDS, NO REBOUND, NO MASSES, other ( trunkal obesity) Genitourinary - Male: EXTERNAL GENITALIA NORMAL Back: NORMAL INSPECTION, NO MIDLINE TENDERNESS, NO CVA TENDERNESS, NO PARAVERTEBRAL TTP Upper Extremities: NO DEFORMITY, NORMAL ROM, edema Lower Extremities: NO DEFORMITY, NORMAL ROM Edema: Bilateral UE (1+), Bilateral LE (2+) Pulses: carotid (R) (1+), carotid (L) (1+), dorsalis pedis (R) (0), dorsalis pedis (L) (0) Neuro: ALERT, ORIENTED x 3, NORMAL MOTOR EXAM, NORMAL SENSATION, NORMAL CEREBELLAR EXAM Reflexes: biceps (R) (1+), bicpes (L) (1+) Babinski Testing: right (equivocal), left (equivocal) Psychiatric: NORMAL AFFECT, NO SUICIDAL IDEATION Diagnostics Labs Results Past 24 Hours Test 03/19/17 07:59 03/19/17 08:00 Range/Units Influenza Type A (RT-PCR) Neg for Influ A NEG Influenza Type B (RT-PCR) Neg for Influ B NEG White Blood Count 15.35 4.8-10.8 K/uL Red Blood Count 5.43 4.7-6.1 M/uL Hemoglobin 15.3 14.0-18.0 g/dL Hematocrit 47.6 42-52 % Mean Corpuscular Volume 87.7 80-100 fL Mean Corpuscular Hemoglobin 28.2 25-34 pg Mean Corpuscular Hemoglobin Concent 32.1 32-36 g/dl Platelet Count 226 130-400 K/uL Mean Platelet Volume 9.1 7.4-10.4 fL Neutrophils (%) (Auto) 77.9 % Lymphocytes (%) (Auto) 11.9 % Monocytes (%) (Auto) 7.6 % Eosinophils (%) (Auto) 1.6 % Basophils (%) (Auto) 0.2 % Neutrophils # (Auto) 11.95 1.4-6.5 K/uL Lymphocytes # (Auto) 1.83 1.2-3.4 K/uL Monocytes # (Auto) 1.16 0.11-0.59 K/uL Eosinophils # (Auto) 0.25 0-0.5 K/uL Basophils # (Auto) 0.03 0-0.2 K/uL RDW Standard Deviation 60.4 36.4-46.3 fL RDW Coefficient of Variation 18.6 11.5-14.5 % Immature Granulocyte % (Auto) 0.8 % Immature Granulocyte # (Auto) 0.13 0.00-0.02 K/uL Sodium Level 139 136-145 mmol/L Potassium Level 3.7 3.5-5.1 mmol/L Chloride Level 99 98-107 mmol/L Carbon Dioxide Level 33 21-32 mmol/L Anion Gap 7.0 3-11 mmol/L Blood Urea Nitrogen 33 7-18 mg/dl Creatinine 1.30 0.60-1.40 mg/dl Estimated GFR () 64.1 Estimated GFR (Non- 55.3 BUN/Creatinine Ratio 25.5 10-20 Random Glucose 153 70-99 mg/dl Calcium Level 8.7 8.5-10.1 mg/dl Total Bilirubin 1.1 0.2-1 mg/dl Aspartate Amino Transf (AST/SGOT) 18 15-37 U/L Alanine Aminotransferase (ALT/SGPT) 49 12-78 U/L Alkaline Phosphatase 85 45-117 U/L Troponin I < 0.015 0-0.045 ng/ml Total Protein 7.1 6.4-8.2 gm/dl Albumin 3.4 3.4-5.0 gm/dl Globulin 3.7 2.5-4.0 gm/dl Albumin/Globulin Ratio 0.9 0.9-2 Microbiology Results 03/19/17 Blood Culture, Received Pending 03/19/17 Blood Culture, Received Pending Diagnostic Radiology CXR: cardiomegaly with cephalization and justin-bronchial cuffing improved as compared to 03/05/17 EKG EKG: NSR, rate 80 Impression Assessment and Plan 72y/o male with progressive dyspnea 1) Dyspnea: This is a difficult patient as his PFT's are not definitive for COPD/OVD and they do suggest sever RVD secondary to his weight but these are over a decade ago. His cardiac echo's and previous radiographs and PE also suggest elevated pulmonary pressures which suggest Groups II & III pulmonary hypertension. He also notes a history of asbestosis exposure possible adding to his RVD (asbestosis vs. pleural plaquing) I suggested to the patient that we perform a through work-up with repeat HRCT, cardiac echo, right heart catheterization and repeat PFT. He is not interested at this time for at aggressive work-up or treatment, the patient demonstrated no signs of depression to cloud his judgment. With this in mind we are going to have to proceed with treatment as if he has COPD, diastolic heart failure and Group 1&2 pulmonary hypertension. This is based of steroids, nebulizers, diuresis and water restriction. We will have to be conscious in monitoring his Cr as it is currently 1.3.
[2017-03-19] MEDS: METHYLPREDNISOLONE IV 40 MG in SYRINGE 0 ML IV SCH (17:33)
[2017-03-19] MEDS: FERROUS SULFATE 325 MG TAB PO SCH (19:43)
[2017-03-19] MEDS: ATORVASTATIN 10 MG TAB PO SCH (19:43)
[2017-03-19] MEDS: METOPROLOL TARTRATE 25 MG TAB PO SCH (19:43)
[2017-03-19] MEDS: INSULIN DETEMIR FLEXPEN/FLEX TOUCH 100 UNITS/ML 3ML SQ SCH (20:49)
[2017-03-19] MEDS: LEVOFLOXACIN / D5W 500 MG in PREMIXED IN D5W 100 ML IV SCH (21:57)
[2017-03-20] VITALS (12 sets, daily range): BP systolic 144–175; BP diastolic 75–98; PULSE 83–102; TEMP 36.6–37.2; O2SAT 93–99
[2017-03-20] MEDS: METHYLPREDNISOLONE IV 40 MG in SYRINGE 0 ML IV SCH ×3 (01:48→18:07)
[2017-03-20] MEDS: FERROUS SULFATE 325 MG TAB PO SCH ×2 (07:38→21:33)
[2017-03-20] MEDS: PANTOprazole SOD 40 MG TAB PO SCH (07:39)
[2017-03-20] MEDS: ASPIRIN 81 MG ECTAB PO SCH (07:39)
[2017-03-20] MEDS: ALLOPURINOL 300 MG TAB PO SCH (07:39)
[2017-03-20] MEDS: PAROXETINE 30 MG TAB PO SCH (07:40)
[2017-03-20] MEDS: METOPROLOL TARTRATE 25 MG TAB PO SCH ×2 (07:40→21:33)
[2017-03-20] MEDS: POTASSIUM CHLORIDE 20 MEQ TABCR PO SCH (07:40)
[2017-03-20] MEDS: INSULIN ASPART 100 UNITS/ML 3 ML PEN SC SCH ×4 (07:45→21:29)
[2017-03-20 08:26] LABS: HEMATOCRIT 46.3 % (42-52); MEAN CELL VOLUME 87.9 fL (80-100); MEAN CORPUSCULAR HEMOGLOBIN 28.5 pg (25-34); MEAN CORPUSCULAR HGB CONC 32.4 g/dl (32-36); MEAN PLATELET VOLUME 9.2 fL (7.4-10.4); PLATELET COUNT 248 K/uL (130-400); RED BLOOD COUNT 5.27 M/uL (4.7-6.1); WHITE BLOOD COUNT 17.91 K/uL (4.8-10.8)
[2017-03-20 08:50] LABS: BUN/CREATININE RATIO 27.1 (10-20); CREATININE 1.5 mg/dl (0.60-1.40); POTASSIUM 4.2 mmol/L (3.5-5.1)
[2017-03-20 08:59] LABS: CALCIUM 9.2 mg/dl (8.5-10.1)
[2017-03-20] MEDS ORDERED: FUROSEMIDE 80 MG TAB PO SCH (09:00)
--- NOTE | 2017-03-20 10:21 | Pharmacy Progress Note ---
Glycemic Control: Progress Nt Date of Service March 20, 2017. Scope Glycemic Pharmacist consulted by NAHID Choi on 03/19 for glycemic control and to write orders per [facility] inpatient glycemic control protocol. Objective Accuchecks BSG (last 24hrs): Test 03/19/17 16:18 03/19/17 20:10 03/20/17 06:45 03/20/17 08:15 Bedside Glucose 249 mg/dl (70-99) 274 mg/dl (70-99) 197 mg/dl (70-99) Random Glucose 262 mg/dl (70-99) Laboratory Data (last 24hrs) Test 03/20/17 08:15 Anion Gap 10.0 mmol/L BUN/Creatinine Ratio 27.1 Blood Urea Nitrogen 41 mg/dl Creatinine 1.50 mg/dl Potassium Level 4.2 mmol/L Sodium Level 138 mmol/L White Blood Count 17.91 K/uL Recent Pertinent Medications Outpatient Anti-diabetic Regimen: * Levemir 32 units SC qHS * Glipizide 5 mg po BID * A1c = 6.3 % on 03/06/17 The patient is currently receiving: * Basal insulin: Levemir 32 units every 24 hours - dosed at HS * Correctional Insulin: Novolog Correction per scale ACHS Goal Range: Low 120 mg/dL - High 150 mg/dL Correction Factor: 10 mg/dL/unit * Prandial insulin: Per carb ratio of 1 unit per 6 grams CHO consumed * Oral Agents: None at this time Risk Factors for Insulin Resistance: * Steroids: Methylprednisolone 80 mg IV x1 yesterday then 40 mg IV q8h * Diet: type 2 diabetes/ AHA - ave of 50 gm CHO w/ each meal Assessment & Plan ASSESSMENT: 03/19/17 * ADA & AACE recommend a goal blood sugar range 140-180 mg/dl for the majority of critically ill & non-critically ill patients. However, more stringent targets may be selected in individual cases. * Pt is maintained on oral antidiabetic agents as an outpatient * Oral agents are not recommended for inpatient use d/t drug interactions, changing PO intake, and difficulty titrating for acute hyper/hypoglycemia. ADA recommends re-initiating outpatient oral agents 1-2 days prior to discharge if/ when appropriate if they were held on admission. * Will hold oral agents for admission and utilize SQ basal bolus insulin regimen which is the recommended regimen for inpatient glycemic control. * Will continue home Levemir dose. * Will add weight-based Novolog based on moderate stress 03/20/17 * BSGs remain elevated, but seem to have improved from yesterday - fasting of 197 this AM * Dr. Osborn tightened CF yesterday b/c of increasing BSGs - this seems reasonable to continue * Will plan to continue the same basal dose for now * The current CR appears to not be aggressive enough so will tighten further PLAN FOR INPATIENT GLYCEMIC CONTROL: * Continue Levemir 32 units SQ HS * Continue correction factor of 10 mg/dl/unit * TIGHTEN carb ratio to 1 unit per 4 grams CHO consumed * Continue goal range of Low 120 mg/dL - High 150 mg/dL * Please note that the plan above was derived based on current level of insulin resistance and hospital stress. These recommendations are appropriate for inpatient admission only. Plan of care upon discharge will need to be reassessed to avoid potential outpatient hypo/hyperglycemia. Thank you.
[2017-03-20] MEDS: ALBUT/IPRATROP 3MG/0.5MG NEB 3 ML VIAL INH SCH ×3 (11:52→20:15)
[2017-03-20] MEDS: POTASSIUM CHLORIDE 10 MEQ TABCR PO SCH (13:07)
[2017-03-20] MEDS: FUROSEMIDE 40 MG TAB PO SCH (13:07)
[2017-03-20] MEDS: ENOXAPARIN 40 MG/0.4 ML SYR SC SCH (13:07)
--- NOTE | 2017-03-20 18:50 | Progress Note ---
Internal Med Progress Note Date of Service: March 20, 2017. Provider Documentation: SUBJECTIVE: breathing much better , no wheeze no MCGOWAN , orthopnea OBJECTIVE: Vital Signs-as noted below Exam: General-no sign of distress Eyes-sclera non icteric Lungs-no wheeze or rales Heart-regular S1/S2 Abdomen-soft,non tender Extremities-trance bilat lower ext edema Neuro-AAO x3, no focal deficit Lab data as noted below. ASSESSMENT & PLAN: ACUTE ON CHRONIC RESPIRATORY FAILURE/COPD EXACERBATION respiratory status improved cont Duo neb tx Iv Solu Medrol Cxray shows -no evidence of pulmonary congestion /no infiltrate CT chest without contrast in AM to assess for interstitial lung disease cont respiratory support with IV Solu Medrol , Duo Neb tx scheduled QID and PRN Q 2hrs leukocytosis , possible due to steroids follow CBC empiric ABx with Levaquin follow blood culture report Pulmonology eval requested -appreciate input HX OF CHRONIC DIASTOLIC FAILURE Last ECHO 07/2016 : EF 65-70 % , grade II diastolic dysfunction ;with Pseudo- normalization pattern RV wnl : TAPSE> 1.5 cm LA : mild dilatation , no ASD remains Euvolemic , no evidence of pulmonary congestion in Cxray ,no rales in auscultation On Lasix 80 mg AM /40 mg at noon will hold Lasix due to SUKUMAR monitor vol status -daily wt /I's /O's SUKUMAR ON CKD STAGE 3 : cr elevated 1.5 hold Lasix follow PRP avoid Nephrotoxins -avoid contrast studies /no NSAID's HTN : BP improved cont home antihypertensives-Hydralazine 100 mg TID Lopressor 75 mg BID Hold Lasix for SUKUMAR PRN IV hydralazine for SBP > 160 TYPE 2 DM : well controlled recent Hb A1C 6.3 - expect to have steroid induced hyperglycemia with IV Solu Medrol cont on Glipizide cont on Basal long acting insulin and additional short acting sliding scale coverage Appreciate Pharmacy consulte for glycemic management HYPERLIPIDEMIA : cont Lipitor RENE : cont CPAP at night HX OF GOUT: cont Allopurinol FULL CODE DVT PROPHYLAXIS: moderate to high risk Sub q Lovenox DISPOSITION expected to return home when medically stable /respiratory status improves PT/OT eval requested while in patient medicine follow up with Dr Rdz Not following with any pulmonology at present will need to establish care with Pulmonology as out patient Vital Signs: Date Time Temp Pulse Resp B/P Pulse Ox O2 Delivery O2 Flow Rate FiO2 03/20/17 20:16 96 18 96 Nasal Cannula 3.0 03/20/17 19:40 37.2 99 18 171/98 94 Nasal Cannula 2.0 03/20/17 16:00 Nasal Cannula 2.0 03/20/17 15:35 37.0 95 18 150/88 95 Nasal Cannula 2.0 03/20/17 15:28 88 18 97 Nasal Cannula 2.0 03/20/17 12:00 Nasal Cannula 2.0 03/20/17 11:52 97 18 97 Room Air 03/20/17 11:44 36.7 97 18 144/75 94 Nasal Cannula 03/20/17 08:00 Nasal Cannula 2.0 03/20/17 07:47 36.6 93 18 156/98 99 Room Air 03/20/17 07:20 96 18 93 Room Air 03/20/17 04:00 CPAP 03/20/17 03:10 36.7 99 16 159/88 93 CPAP 03/20/17 00:01 Nasal Cannula 2.0 03/19/17 23:00 36.8 107 18 155/94 91 CPAP Lab Results: Results Past 24 Hours Test 03/20/17 06:45 03/20/17 08:15 03/20/17 11:10 03/20/17 16:35 Range/Units Bedside Glucose 197 172 207 70-99 mg/dl White Blood Count 17.91 4.8-10.8 K/uL Red Blood Count 5.27 4.7-6.1 M/uL Hemoglobin 15.0 14.0-18.0 g/dL Hematocrit 46.3 42-52 % Mean Corpuscular Volume 87.9 80-100 fL Mean Corpuscular Hemoglobin 28.5 25-34 pg Mean Corpuscular Hemoglobin Concent 32.4 32-36 g/dl RDW Standard Deviation 59.1 36.4-46.3 fL RDW Coefficient of Variation 18.6 11.5-14.5 % Platelet Count 248 130-400 K/uL Mean Platelet Volume 9.2 7.4-10.4 fL Sodium Level 138 136-145 mmol/L Potassium Level 4.2 3.5-5.1 mmol/L Chloride Level 100 98-107 mmol/L Carbon Dioxide Level 28 21-32 mmol/L Anion Gap 10.0 3-11 mmol/L Blood Urea Nitrogen 41 7-18 mg/dl Creatinine 1.50 0.60-1.40 mg/dl Est Creatinine Clear Calc Drug Dose 61.0 ml/min Estimated GFR () 53.9 Estimated GFR (Non- 46.5 BUN/Creatinine Ratio 27.1 10-20 Random Glucose 262 70-99 mg/dl Calcium Level 9.2 8.5-10.1 mg/dl Test 03/20/17 21:02 Range/Units Bedside Glucose 200 70-99 mg/dl
[2017-03-20] MEDS: INSULIN DETEMIR FLEXPEN/FLEX TOUCH 100 UNITS/ML 3ML SQ SCH (21:30)
[2017-03-20] MEDS: ATORVASTATIN 10 MG TAB PO SCH (21:32)
[2017-03-20] MEDS: LEVOFLOXACIN / D5W 500 MG in PREMIXED IN D5W 100 ML IV SCH (22:22)
[2017-03-21] VITALS (12 sets, daily range): BP systolic 131–167; BP diastolic 78–98; PULSE 77–98; TEMP 36.5–36.8; O2SAT 91–96
[2017-03-21] MEDS: ALBUT/IPRATROP 3MG/0.5MG NEB 3 ML VIAL INH SCH ×4 (07:41→19:04)
[2017-03-21 08:06] LABS: BUN/CREATININE RATIO 32.3 (10-20); CREATININE 1.5 mg/dl (0.60-1.40); POTASSIUM 4.2 mmol/L (3.5-5.1)
[2017-03-21 08:26] LABS: CALCIUM 9.3 mg/dl (8.5-10.1)
[2017-03-21] MEDS: PAROXETINE 30 MG TAB PO SCH (08:40)
[2017-03-21] MEDS: PANTOprazole SOD 40 MG TAB PO SCH (08:40)
[2017-03-21] MEDS: ALLOPURINOL 300 MG TAB PO SCH (08:42)
[2017-03-21] MEDS: ASPIRIN 81 MG ECTAB PO SCH (08:42)
[2017-03-21] MEDS: FERROUS SULFATE 325 MG TAB PO SCH ×2 (08:42→20:16)
[2017-03-21] MEDS: METOPROLOL TARTRATE 25 MG TAB PO SCH ×2 (08:42→20:16)
[2017-03-21] MEDS: POTASSIUM CHLORIDE 20 MEQ TABCR PO SCH (08:43)
[2017-03-21] MEDS: INSULIN ASPART 100 UNITS/ML 3 ML PEN SC SCH ×4 (08:59→20:22)
[2017-03-21] MEDS ORDERED: METHYLPREDNISOLONE IV 40 MG in SYRINGE 0 ML IV SCH (09:00)
--- NOTE | 2017-03-21 09:32 | DIAGNOSTIC IMAGING REPORT ---
CHEST CT WITHOUT CONTRAST CT DOSE: 1346.87 mGy.cm HISTORY: COPD /chronic respiratory failure /non contrast study to SUKUMAR TECHNIQUE: Multiaxial CT images of the chest were performed without contrast. COMPARISON: Chest CTA 07/23/2016. FINDINGS: Punctate calcified granuloma within the right lung apex. Punctate calcified granuloma within the right lower lobe. Bilateral upper lobe linear densities favor scarring or atelectasis. This is similar to the prior study. No new focal lung consolidations to suggest pneumonia. No evidence for pulmonary edema. No pleural effusions. No pneumothorax. No fractures within the visualized osseous structures. Multiple partially calcified mediastinal and bilateral hilar lymph nodes are again noted. Right paratracheal lymphadenopathy is slightly improved. Dominant lymph node measures 1.7 x 1.2 cm. This previous measured 2.0 x 1.5 cm. Normal caliber thoracic aorta. The heart remains mildly enlarged. No pericardial effusion. Hepatic steatosis. Small gallstone is identified. Large left renal cyst is partially imaged. Normal adrenal glands. Trace mucoid material within the right bronchus intermedius. IMPRESSION: 1. Bilateral upper lobe linear densities favor scarring or atelectasis. This is similar to the prior study. No new focal lung consolidations to suggest pneumonia. 2. Slight improvement in the right peritracheal lymphadenopathy. 3. Stable mild cardiomegaly. 4. Hepatic steatosis. 5. Cholelithiasis. Electronically signed by: Savage Overton M.D. 03/21/2017 9:30 AM Dictated Date/Time: 03/21/2017 9:23 AM
[2017-03-21] MEDS: POTASSIUM CHLORIDE 10 MEQ TABCR PO SCH (12:38)
--- NOTE | 2017-03-21 12:56 | Pharmacy Progress Note ---
Glycemic Control: Progress Nt Date of Service March 21, 2017. Scope Glycemic Pharmacist consulted by NAHID Choi on 03/19 for glycemic control and to write orders per [facility] inpatient glycemic control protocol. Objective Accuchecks BSG (last 24hrs): Test 03/20/17 16:35 03/20/17 21:02 03/21/17 07:24 03/21/17 08:08 Bedside Glucose 207 mg/dl (70-99) 200 mg/dl (70-99) 148 mg/dl (70-99) Random Glucose 163 mg/dl (70-99) Test 03/21/17 11:30 Bedside Glucose 141 mg/dl (70-99) Laboratory Data (last 24hrs) Test 03/21/17 07:24 Anion Gap 8.0 mmol/L BUN/Creatinine Ratio 32.3 Blood Urea Nitrogen 49 mg/dl Creatinine 1.50 mg/dl Potassium Level 4.2 mmol/L Sodium Level 138 mmol/L Recent Pertinent Medications Outpatient Anti-diabetic Regimen: * Levemir 32 units SC qHS * Glipizide 5 mg po BID * A1c = 6.3 % on 03/06/17 The patient is currently receiving: * Basal insulin: Levemir 32 units every 24 hours - dosed at HS * Correctional Insulin: Novolog Correction per scale ACHS Goal Range: Low 120 mg/dL - High 150 mg/dL Correction Factor: 10 mg/dL/unit * Prandial insulin: Per carb ratio of 1 unit per 6 grams CHO consumed * Oral Agents: None at this time Risk Factors for Insulin Resistance: * Steroids: Methylprednisolone decreased from 40 mg q8h to q12h * Diet: type 2 diabetes/ AHA - ave of 50 gm CHO w/ each meal Assessment & Plan ASSESSMENT: 03/19/17 * ADA & AACE recommend a goal blood sugar range 140-180 mg/dl for the majority of critically ill & non-critically ill patients. However, more stringent targets may be selected in individual cases. * Pt is maintained on oral antidiabetic agents as an outpatient * Oral agents are not recommended for inpatient use d/t drug interactions, changing PO intake, and difficulty titrating for acute hyper/hypoglycemia. ADA recommends re-initiating outpatient oral agents 1-2 days prior to discharge if/ when appropriate if they were held on admission. * Will hold oral agents for admission and utilize SQ basal bolus insulin regimen which is the recommended regimen for inpatient glycemic control. * Will continue home Levemir dose. * Will add weight-based Novolog based on moderate stress 03/20/17 * BSGs remain elevated, but seem to have improved from yesterday - fasting of 197 this AM * Dr. Osborn tightened CF yesterday b/c of increasing BSGs - this seems reasonable to continue * Will plan to continue the same basal dose for now * The current CR appears to not be aggressive enough so will tighten further 03/21/17 * Patient rec'd 79 units of insulin yesterday w/ BSGs ranging from 141-207 mg/ dL in the past 24 hours * BSGs look great today but they will most likely drop if the same insulin regimen is continued w/ the decrease in steroid dose * Will base new regimen off of est TDD of 55 units, with basal being ~40% of this since steroids affect postprandial BSGs more PLAN FOR INPATIENT GLYCEMIC CONTROL: * Decrease Levemir to 22 units qHS * LOOSEN CF to 15 * LOOSEN CR to 7 * Continue goal range of 120-150 * Please note that the plan above was derived based on current level of insulin resistance and hospital stress. These recommendations are appropriate for inpatient admission only. Plan of care upon discharge will need to be reassessed to avoid potential outpatient hypo/hyperglycemia. Thank you.
[2017-03-21] MEDS: ENOXAPARIN 40 MG/0.4 ML SYR SC SCH (13:17)
--- NOTE | 2017-03-21 19:47 | Discharge Instructions ---
Discharge Instructions Date of Service March 21, 2017. Admission Reason for Admission: Copd With Acute Exacerbation, Sob Discharge Discharge Diagnosis / Problem: COPD EXACERBATION Discharge Goals Goal(s): Decrease discomfort, Increase independence, Improve disease control, Therapeutic intervention Activity Recommendations Activity Limitations: resume your previous activity . Instructions / Follow-Up Instructions / Follow-Up HOSPITAL FOLLOWUP WITH DR ODOM IN A WEEK , OFFICE WILL CALL WITH APPOINTMENT YOU ARE TO NOT TO TAKE LASIX AND POTASSIUM TABLET - YOUR CREATININE IS ELEVATED REPEAT LAB WORK BASIC METABOLIC PANEL ON Wednesday03/24/[address] UP [address] ODOM , LASIX NEEDS TO BE RESUMED SOON POSSIBLE RENAL FUNCTION IMPROVES TO BASELINE DO NOT TAKE MOTRIN , ADVIL , ALEVE, NAPROXEN -FOR PAIN-NO NSAID'S WILL CAUSE WORSENING OF YOUR RENAL FUNCTION CARDIOLOGY FOLLOW UP ON 04/02/2017 @ 12:45 PM WITH Lalo Flores PA-C Cardiology, [facility] LUNG SPECIALIST FOLLOW UP WITH DR KAMARA IN 3-4 WEEK, PLEASE CALL OFFICE FOR APPOINTMENT Current Hospital Diet Patient's current hospital diet: AHA Diet (Heart Healthy), Diabetes Type 2 Diet Discharge Diet Recommended Diet: AHA Diet (Heart Healthy), Diabetes Type 2 Diet Pending Studies Studies pending at discharge: yes List of pending studies: BASIC METABOLIC PANEL ON Wednesday03/24/17 Laboratory Results Hemoglobin A1c Test 03/06/17 06:25 Range/Units Estimated Average Glucose 134 mg/dl Hemoglobin A1c 6.3 H 4.5-5.6 % Medical Emergencies . Who to Call and When: Medical Emergencies: If at any time you feel your situation is an emergency, please call 911 immediately. . Non-Emergent Contact Non-Emergency issues call your: Primary Care Provider . . "Provider Documentation" section prepared by Corry Osborn. . VTE Core Measure Inpt VTE Proph given/why not?: Enoxaparin (Lovenox) [place] Drug Monitoring Program Search Results: no issues identified
--- NOTE | 2017-03-21 19:53 | Progress Note ---
Internal Med Progress Note Date of Service: March 21, 2017. Provider Documentation: SUBJECTIVE: sob , Cough has resolved no wheezing no MCG[place]AN , able to walk on the hallway with out being SOB feels much better than past few weeks OBJECTIVE: Vital Signs-as noted below Exam: General-no sign of distress , comfortable Eyes-sclera non icteric Lungs-no wheeze or rales Heart-regular S1/S2 Abdomen-soft,non tender Extremities-trance bilat lower ext edema Neuro-AAO x3, no focal deficit Lab data as noted below. ASSESSMENT & PLAN: ACUTE ON CHRONIC RESPIRATORY FAILURE/COPD EXACERBATION respiratory status improved to baseline cont Duo neb tx D/ce Iv Solu Medrol ; started on PO Prednisone 40 mg BID will need long prednisone taper getting COPD exacerbation at the end of prednisone taper will be followed with pulmonology as out pt Cxray shows -no evidence of pulmonary congestion /no infiltrate CT chest without contrast in AM : 1. Bilateral upper lobe linear densities favor scarring or atelectasis. This is similar to the prior study. No new focal lung consolidations to suggest pneumonia. 2. Slight improvement in the right peritracheal lymphadenopathy. 3. Stable mild cardiomegaly. 4. Hepatic steatosis. 5. Cholelithiasis. blood culture -negative growth Leukocytosis possible steroid induced Levaquin D/hilda Pulmonology eval requested -appreciate input pt will need out pt Pulmonology follow up HX OF CHRONIC DIASTOLIC FAILURE Last ECHO 07/2016 : EF 65-70 % , grade II diastolic dysfunction ;with Pseudo- normalization pattern RV wnl : TAPSE> 1.5 cm LA : mild dilatation , no ASD remains Euvolemic , no evidence of pulmonary congestion in Cxray ,no rales in auscultation was on Lasix 80 mg AM /40 mg at noon resume Lasix as renal function returns back to baseline monitor vol status -daily wt /I's /O's SUKUMAR ON CKD STAGE 3 : cont to hold Lasix follow PRP avoid Nephrotoxins -avoid contrast studies /no NSAID's HTN : BP improved cont home antihypertensives-Hydralazine 100 mg TID Lopressor 75 mg BID PRN IV hydralazine for SBP > 160 TYPE 2 DM : well controlled recent Hb A1C 6.3 - expect to have steroid induced hyperglycemia with IV Solu Medrol cont on Glipizide cont on Basal long acting insulin and additional short acting sliding scale coverage Appreciate Pharmacy consulted for glycemic management HYPERLIPIDEMIA : cont Lipitor RENE : cont CPAP at night HX OF GOUT: cont Allopurinol FULL CODE DVT PROPHYLAXIS: moderate to high risk Sub q Lovenox DISPOSITION possible discharge home tomorrow medicine follow up with Dr Rdz Not following with any pulmonology at present will need to establish care with Pulmonology as out patient Vital Signs: Date Time Temp Pulse Resp B/P Pulse Ox O2 Delivery O2 Flow Rate FiO2 03/21/17 19:05 77 14 95 Room Air 03/21/17 16:00 92 Room Air 03/21/17 15:27 80 14 95 Room Air 03/21/17 14:55 36.8 87 20 131/78 91 Room Air 03/21/17 11:29 82 18 95 Room Air 03/21/17 10:27 98 96 03/21/17 08:00 92 Room Air 03/21/17 07:41 96 18 92 Room Air 03/21/17 07:01 36.7 87 20 150/85 91 Room Air 03/21/17 05:00 87 158/83 03/20/17 23:59 BiPAP 2.0 03/20/17 23:52 102 96 2.0 03/20/17 23:52 102 16 96 BiPAP 2.0 03/20/17 22:44 36.7 97 20 175/77 93 Nasal Cannula 2.0 03/20/17 20:16 96 18 96 Nasal Cannula 3.0 Lab Results: Results Past 24 Hours Test 03/20/17 21:02 03/21/17 07:24 03/21/17 08:08 03/21/17 11:30 Range/Units Bedside Glucose 200 148 141 70-99 mg/dl Sodium Level 138 136-145 mmol/L Potassium Level 4.2 3.5-5.1 mmol/L Chloride Level 99 98-107 mmol/L Carbon Dioxide Level 31 21-32 mmol/L Anion Gap 8.0 3-11 mmol/L Blood Urea Nitrogen 49 7-18 mg/dl Creatinine 1.50 0.60-1.40 mg/dl Est Creatinine Clear Calc Drug Dose 61.0 ml/min Estimated GFR () 53.9 Estimated GFR (Non- 46.5 BUN/Creatinine Ratio 32.3 10-20 Random Glucose 163 70-99 mg/dl Calcium Level 9.3 8.5-10.1 mg/dl Test 03/21/17 16:48 Range/Units Bedside Glucose 206 70-99 mg/dl
[2017-03-21] MEDS: ATORVASTATIN 10 MG TAB PO SCH (20:16)
[2017-03-21] MEDS ORDERED: INSULIN DETEMIR FLEXPEN/FLEX TOUCH 100 UNITS/ML 3ML SQ SCH (22:00)
[2017-03-22] VITALS (7 sets, daily range): BP systolic 155–168; BP diastolic 79–93; PULSE 83–90; TEMP 36.7–36.8; O2SAT 94–97
[2017-03-22 07:05] LABS: HEMATOCRIT 47.4 % (42-52); MEAN CELL VOLUME 87.3 fL (80-100); MEAN CORPUSCULAR HGB CONC 32.1 g/dl (32-36); MEAN PLATELET VOLUME 8.8 fL (7.4-10.4); PLATELET COUNT 308 K/uL (130-400); RED BLOOD COUNT 5.43 M/uL (4.7-6.1); WHITE BLOOD COUNT 17.73 K/uL (4.8-10.8)
[2017-03-22] MEDS: ALBUT/IPRATROP 3MG/0.5MG NEB 3 ML VIAL INH SCH ×3 (07:28→15:11)
[2017-03-22 07:42] LABS: BUN/CREATININE RATIO 27.3 (10-20); CALCIUM 9.1 mg/dl (8.5-10.1); CREATININE 1.7 mg/dl (0.60-1.40); POTASSIUM 4.4 mmol/L (3.5-5.1)
[2017-03-22] MEDS: PANTOprazole SOD 40 MG TAB PO SCH (08:41)
[2017-03-22] MEDS: ALLOPURINOL 300 MG TAB PO SCH (08:41)
[2017-03-22] MEDS: METOPROLOL TARTRATE 25 MG TAB PO SCH (08:42)
[2017-03-22] MEDS: PAROXETINE 30 MG TAB PO SCH (08:42)
[2017-03-22] MEDS: ASPIRIN 81 MG ECTAB PO SCH (08:43)
[2017-03-22] MEDS: FERROUS SULFATE 325 MG TAB PO SCH (08:43)
[2017-03-22] MEDS: POTASSIUM CHLORIDE 20 MEQ TABCR PO SCH (08:44)
[2017-03-22] MEDS: INSULIN ASPART 100 UNITS/ML 3 ML PEN SC SCH ×2 (08:46→12:40)
[2017-03-22] MEDS ORDERED: PRD20 PO (10:03)
[2017-03-22] MEDS: POTASSIUM CHLORIDE 10 MEQ TABCR PO SCH (12:10)
[2017-03-22] MEDS: ENOXAPARIN 40 MG/0.4 ML SYR SC SCH (13:53)
--- NOTE | 2017-03-22 14:26 | Pharmacy Progress Note ---
Glycemic Control: Progress Nt Date of Service March 22, 2017. Scope Glycemic Pharmacist consulted by Odessa Pino on 03/19/2017 for glycemic control and to write orders per [facility] inpatient glycemic control protocol. Objective Accuchecks BSG (last 24hrs): Test 03/21/17 16:48 03/21/17 20:18 03/22/17 06:52 03/22/17 07:43 Bedside Glucose 206 mg/dl (70-99) 217 mg/dl (70-99) 173 mg/dl (70-99) Random Glucose 189 mg/dl (70-99) Test 03/22/17 11:28 Bedside Glucose 187 mg/dl (70-99) Laboratory Data (last 24hrs) Test 03/22/17 06:52 Anion Gap 8.0 mmol/L BUN/Creatinine Ratio 27.3 Blood Urea Nitrogen 46 mg/dl Creatinine 1.70 mg/dl Potassium Level 4.4 mmol/L Sodium Level 140 mmol/L White Blood Count 17.73 K/uL Recent Pertinent Medications Outpatient Anti-diabetic Regimen: * Levemir 32 units HS plus glipizide 5 mg PO BID * A1c = 6.3 % 03/06/2017 The patient is currently receiving: * Basal insulin: Lantus 22 units every 24 hours (at bedtime) * Correctional Insulin: Novolog Correction per scale ACHS Goal Range: Low 120 mg/dL - High 150 mg/dL Correction Factor: 15 mg/dL/unit * Prandial insulin: Per carb ratio of 1 unit per 7 grams CHO consumed Risk Factors for Insulin Resistance: * Steroids: prednisone 40 mg PO BID * Infection: COPD exacerbation * Diet: type 2 diabetic diet Assessment & Plan ASSESSMENT: * ADA & AACE recommend a goal blood sugar range 140-180 mg/dl for the majority of critically ill & non-critically ill patients. However, more stringent targets may be selected in individual cases. Will utilize more stringent goal of 110-140mg/dl based on patient age & comorbidities. Additionally, tighter glycemic control is warranted to facilitate wound/infection healing. * Mr Muse is a 72 y/o M admitted 03/19/17 for a COPD exacerbation. He was started on IV steroids which were then tapered down to PO prednisone 40 mg PO BID. His home Levemir has been continued until last night when it was reduced to Levemir 22 units qHS due to transition from IV to PO steroids. His correctional insulin as remained relatively stable. He may leave today or tomorrow. * Yesterday, Mr Muse received 52 units of insulin and his blood sugars ranged from 148-217 mg/dL. Today his blood sugars were 173 mg/dL and 187 mg/dL. I believe that his basal insulin is not high enough and thus increased it back to his home dose. The same correctional insulin will be continued. PLAN FOR INPATIENT GLYCEMIC CONTROL: * INCREASING Lantus to 32 units SQ HS * Continuing correction factor 15 mg/dl/unit * Continuing carb ratio 1 unit per 7 grams CHO consumed * Continuing goal range to Low 120 mg/dL - High 150 mg/dL RECOMMENDATIONS FOR DISCHARGE: * Mr Muse's blood sugar control sees reasonable if not too strict as an outpatient. He may benefit from closer monitoring. Generally glipizide and sulfonylureas are not recommended in the elderly. * Please note that the plan above was derived based on current level of insulin resistance and hospital stress. These recommendations are appropriate for inpatient admission only. Plan of care upon discharge will need to be reassessed to avoid potential outpatient hypo/hyperglycemia. Thank you.
--- NOTE | 2017-03-22 16:43 | Progress Note ---
Internal Med Progress Note Date of Service: March 22, 2017. Provider Documentation: SUBJECTIVE: feels fine no complain of SOB, no cough ready to be discharged home OBJECTIVE: Vital Signs-as noted below Exam: General-no sign of distress , comfortable Eyes-sclera non icteric Lungs-no wheeze or rales Heart-regular S1/S2 Abdomen-soft,non tender Extremities-trance bilat lower ext edema Neuro-AAO x3, no focal deficit Lab data as noted below. ASSESSMENT & PLAN: ACUTE ON CHRONIC RESPIRATORY FAILURE/COPD EXACERBATION resolved respiratory status improved to baseline cont Duo neb tx D/ce Iv Solu Medrol ; started on PO Prednisone 40 mg BID will need long prednisone taper pt will be discharged on Prednisone 40 mg daily X5 ,then 10 mg decrease every 5 days episodes COPD exacerbation at the end of prednisone taper Pulmonology follow up with Dr Jonas in 3-4 weeks prior to discontinuation of Prednisone Cxray shows -no evidence of pulmonary congestion /no infiltrate CT chest without contrast in AM : 1. Bilateral upper lobe linear densities favor scarring or atelectasis. This is similar to the prior study. No new focal lung consolidations to suggest pneumonia. 2. Slight improvement in the right peritracheal lymphadenopathy. 3. Stable mild cardiomegaly. 4. Hepatic steatosis. 5. Cholelithiasis. blood culture -negative growth mild Leukocytosis possible steroid induced Levaquin D/hilda Pulmonology eval requested -appreciate input Out pt Pulmonology follow up HX OF CHRONIC DIASTOLIC FAILURE Last ECHO 07/2016 : EF 65-70 % , grade II diastolic dysfunction ;with Pseudo- normalization pattern RV wnl : TAPSE> 1.5 cm LA : mild dilatation , no ASD remains Euvolemic , no evidence of pulmonary congestion in Cxray ,no rales in auscultation was on Lasix 80 mg AM /40 mg at noon Lasix on hold for SUKUMAR on CKD , Cr 1.7 ( baseline 1.3-1.4 ) resume Lasix as renal function returns back to baseline monitor vol status -daily wt /I's /O's SUKUMAR ON CKD STAGE 3 : Cr 1.7 today ( baseline 1.3-1.4 ) cont to hold Lasix repeat Lab work BMP on Wednesday03/24/17 Lasix to be resumed as soon as possible as renal function improves avoid Nephrotoxins -avoid contrast studies /no NSAID's HTN : BP stable cont home antihypertensives-Hydralazine 100 mg TID Lopressor 75 mg BID TYPE 2 DM : well controlled recent Hb A1C 6.3 - cont on Glipizide cont on Basal long acting insulin and additional short acting sliding scale coverage Appreciate Pharmacy consulted for glycemic management HYPERLIPIDEMIA : cont Lipitor RENE : cont CPAP at night HX OF GOUT: cont Allopurinol FULL CODE DVT PROPHYLAXIS: moderate to high risk Sub q Lovenox DISPOSITION discharge home today medicine follow up with Dr Rdz Not following with any pulmonology at present will need to establish care with Pulmonology as out patient Vital Signs: Date Time Temp Pulse Resp B/P Pulse Ox O2 Delivery O2 Flow Rate FiO2 03/22/17 15:17 36.7 90 14 94 Nasal Cannula 03/22/17 15:12 90 14 94 Room Air 03/22/17 13:51 83 168/93 03/22/17 11:34 90 14 94 Room Air 03/22/17 09:00 Nasal Cannula 2.0 03/22/17 07:50 36.7 84 19 164/79 96 Nasal Cannula 2.0 03/22/17 07:28 83 14 97 Nasal Cannula 3.0 03/22/17 00:13 36.8 85 20 155/83 97 BiPAP 03/22/17 00:00 CPAP 03/21/17 21:48 95 2.0 03/21/17 20:12 36.5 91 18 158/89 91 Room Air 03/21/17 20:00 Nasal Cannula 2.0 03/21/17 19:05 77 14 95 Room Air Lab Results: Results Past 24 Hours Test 03/21/17 16:48 03/21/17 20:18 03/22/17 06:52 03/22/17 07:43 Range/Units Bedside Glucose 206 217 173 70-99 mg/dl White Blood Count 17.73 4.8-10.8 K/uL Red Blood Count 5.43 4.7-6.1 M/uL Hemoglobin 15.2 14.0-18.0 g/dL Hematocrit 47.4 42-52 % Mean Corpuscular Volume 87.3 80-100 fL Mean Corpuscular Hemoglobin 28.0 25-34 pg Mean Corpuscular Hemoglobin Concent 32.1 32-36 g/dl RDW Standard Deviation 58.9 36.4-46.3 fL RDW Coefficient of Variation 18.5 11.5-14.5 % Platelet Count 308 130-400 K/uL Mean Platelet Volume 8.8 7.4-10.4 fL Sodium Level 140 136-145 mmol/L Potassium Level 4.4 3.5-5.1 mmol/L Chloride Level 102 98-107 mmol/L Carbon Dioxide Level 30 21-32 mmol/L Anion Gap 8.0 3-11 mmol/L Blood Urea Nitrogen 46 7-18 mg/dl Creatinine 1.70 0.60-1.40 mg/dl Est Creatinine Clear Calc Drug Dose 53.7 ml/min Estimated GFR () 46.3 Estimated GFR (Non- 40.0 BUN/Creatinine Ratio 27.3 10-20 Random Glucose 189 70-99 mg/dl Calcium Level 9.1 8.5-10.1 mg/dl Test 03/22/17 11:28 Range/Units Bedside Glucose 187 70-99 mg/dl
--- NOTE | 2017-03-22 16:45 | Discharge Summary ---
Discharge Summary Date of Service March 22, 2017. Discharge Summary Admission Date: March 19, 2017 at 10:20 Discharge Date: March 22, 2017 Discharge Disposition: Home Principal Diagnosis: COPD EXACERBATION Procedures: CHEST XRAY : Cardiomegaly with out acute cardiopulmonary changes CT CHEST WITHOUT CONTRAST : IMPRESSION: 1. Bilateral upper lobe linear densities favor scarring or atelectasis. This is similar to the prior study. No new focal lung consolidations to suggest pneumonia. 2. Slight improvement in the right peritracheal lymphadenopathy. 3. Stable mild cardiomegaly. 4. Hepatic steatosis. 5. Cholelithiasis. Consultations: PULMONOLOGY DR KAMARA Medication Reconciliation New Medications: Prednisone (Prednisone) 20 Mg Tab 40 MG PO UD, #100 TABS 40 MG DAILY FOR 5 DAYS 30 MG DAILY X 5 DAYS 20 MG DAILY X 5 DAYS 10 MG DAILY X 5 DAYS Continued Medications: Albuterol Sulfate (Proventil Hfa) 108 Mcg/Act Aer 2 PUFFS INH QID PRN for SOB/Wheezing Allopurinol (Zyloprim) 300 Mg Tab 300 MG PO DAILY, TAB Aspirin (Aspirin Ec) 81 Mg Tab 81 MG PO DAILY Atorvastatin (Lipitor) 10 Mg Tab 10 MG PO QPM, TAB Clonazepam (Klonopin) 1 Mg Tab 1 MG PO TID PRN for Anxiety, 0 Refills Ferrous Sulfate (Iron) 45 Mg Tab 65 MG PO BID Glipizide (Glipizide) 5 Mg Tab 5 MG PO BID 30 MINUTES BEFORE MEALS Hydralazine HCl (Hydralazine HCl) 100 Mg Tab 100 MG PO TID Insulin Detemir (Levemir Flextouch) 100 Unit/Ml Inj 32 UNITS SQ HS Metoprolol Tartrate (Lopressor) (Lopressor) 50 Mg Tab 75 MG PO BID, #90 Omeprazole (Prilosec) 40 Mg Cap 40 MG PO DAILY, CAP Oxygen (Oxygen) Gas 2 LITERS NA PRN Paroxetine Hcl (Paxil) 30 Mg Tab 30 MG PO QAM, TAB Discontinued Medications: Furosemide (Lasix) 80 Mg Tab 80 MG PO QAM, TAB Furosemide (Lasix) 40 Mg Tab 40 MG PO AT NOON, TAB Potassium Ext Rel (Klor-Con) 20 Meq Tabcr 20 MEQ PO QAM, TAB Potassium Ext Rel (Klor-Con) 20 Meq Tabcr 10 MEQ PO LUNCH, TAB Referrals At Discharge Follow up Referrals: Care Coordination Manager Referral - Please Call For Appointment with Jay Kamara MD Admission Information HPI (per Admitting provider): Patient seen and examined. 72 year old male with PMHx of COPD with chronic respiratory failure on 2L NC, DM2, HTN, Diastolic CHF, HLD and other problems listed below presents to the ED complaining of SOB x several days. Patient was recently discharge from this hospital on March 06 following admission for COPD exacerbation. He was discharged home on prednisone taper and states he still had some days of SOB and other days that were better. He reports he finished his taper yesterday and today his SOB seemed much worse. He reports audible wheezing. He has been using his nebulizer at home which does help. His states she had a cold last week and that his symptoms appear similar. He reports occasional cough. He denies fevers, chills, chest pain, palpitations, nausea, vomiting, diarrhea, dysuria, calf pain and edema. He is a lifelong non- smoker. 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 In the ED patient is saturating well on his 2L NC. BP is elevated, WBC count is 15K, other lab work is unremarkable. CXR is negative for consolidation. He received Duonebs and still has audible wheezing. He received IV solu-medrol. He will be observed for further workup and treatment. Physical Exam (per Admitting): General Appearance: + pertinent finding (Pleasant obese 72 year old male sitting in bed, with audible wheezing but NAD, with at bedside ) Head: normocephalic, atraumatic Eyes: PERRL, EOMI, sclerae normal ENT: hearing grossly normal, pharynx normal Neck: supple, no JVD Respiratory/Chest: chest non-tender, no respiratory distress, no accessory muscle use, + pertinent finding (Decreased breath sounds/air movement, diffuse wheezing throughout all lung parkinson, no crackles or rales) Cardiovascular: regular rate, rhythm, no gallop, no JVD, no murmur, normal peripheral pulses Abdomen/GI: normal bowel sounds, non tender, soft Back: normal inspection, no muscle spasm Extremities/Musculoskelatal: no calf tenderness, normal capillary refill, + pedal edema (trace) Neurologic/Psych: alert, oriented x 3, + pertinent finding (nonfocal ) Skin: normal color, warm/dry, no rash Lymphatic: no adenopathy Hospital Course ACUTE ON CHRONIC RESPIRATORY FAILURE/COPD EXACERBATION resolved respiratory status improved to baseline cont Duo neb tx D/ce Iv Solu Medrol ; started on PO Prednisone 40 mg BID will need long prednisone taper pt will be discharged on Prednisone 40 mg daily X5 ,then 10 mg decrease every 5 days episodes COPD exacerbation at the end of prednisone taper Pulmonology follow up with Dr Kamara in 3-4 weeks prior to discontinuation of Prednisone Cxray shows -no evidence of pulmonary congestion /no infiltrate CT chest without contrast in AM : 1. Bilateral upper lobe linear densities favor scarring or atelectasis. This is similar to the prior study. No new focal lung consolidations to suggest pneumonia. 2. Slight improvement in the right peritracheal lymphadenopathy. 3. Stable mild cardiomegaly. 4. Hepatic steatosis. 5. Cholelithiasis. blood culture -negative growth mild Leukocytosis possible steroid induced Levaquin D/hilda Pulmonology eval requested -appreciate input Out pt Pulmonology follow up HX OF CHRONIC DIASTOLIC FAILURE Last ECHO 07/2016 : EF 65-70 % , grade II diastolic dysfunction ;with Pseudo- normalization pattern RV wnl : TAPSE> 1.5 cm LA : mild dilatation , no ASD remains Euvolemic , no evidence of pulmonary congestion in Cxray ,no rales in auscultation was on Lasix 80 mg AM /40 mg at noon Lasix on hold for SUKUMAR on CKD , Cr 1.7 ( baseline 1.3-1.4 ) resume Lasix as renal function returns back to baseline monitor vol status -daily wt /I's /O's SUKUMAR ON CKD STAGE 3 : Cr 1.7 today ( baseline 1.3-1.4 ) cont to hold Lasix repeat Lab work BMP on Wednesday03/24/17 Lasix to be resumed as soon as possible as renal function improves avoid Nephrotoxins -avoid contrast studies /no NSAID's HTN : BP stable cont home antihypertensives-Hydralazine 100 mg TID Lopressor 75 mg BID TYPE 2 DM : well controlled recent Hb A1C 6.3 - cont on Glipizide cont on Basal long acting insulin and additional short acting sliding scale coverage Appreciate Pharmacy consulted for glycemic management HYPERLIPIDEMIA : cont Lipitor RENE : cont CPAP at night HX OF GOUT: cont Allopurinol FULL CODE DVT PROPHYLAXIS: moderate to high risk Sub q Lovenox DISPOSITION discharge home today medicine follow up with Dr Rdz Not following with any pulmonology at present will need to establish care with Pulmonology as out patient Discharge Instructions DI: Medical v4 Discharge Instructions Date of Service March 21, 2017. Admission Reason for Admission: Copd With Acute Exacerbation, Sob Discharge Discharge Diagnosis / Problem: COPD EXACERBATION Discharge Goals Goal(s): Decrease discomfort, Increase independence, Improve disease control, Therapeutic intervention Activity Recommendations Activity Limitations: resume your previous activity . Instructions / Follow-Up Instructions / Follow-Up HOSPITAL FOLLOWUP WITH DR RDZ IN A WEEK , OFFICE WILL CALL WITH APPOINTMENT YOU ARE TO NOT TO TAKE LASIX AND POTASSIUM TABLET - YOUR CREATININE IS ELEVATED REPEAT LAB WORK BASIC METABOLIC PANEL ON Wednesday03/24/[address] UP WITH DR RDZ , LASIX NEEDS TO BE RESUMED SOON POSSIBLE RENAL FUNCTION IMPROVES TO BASELINE DO NOT TAKE MOTRIN , ADVIL , ALEVE, NAPROXEN -FOR PAIN-NO NSAID'S WILL CAUSE WORSENING OF YOUR RENAL FUNCTION CARDIOLOGY FOLLOW UP ON 04/02/2017 @ 12:45 PM WITH Lalo Flores PA-C Cardiology, [facility] LUNG SPECIALIST FOLLOW UP WITH DR KAMARA IN 3-4 WEEK, PLEASE CALL OFFICE FOR APPOINTMENT Current Hospital Diet Patient's current hospital diet: AHA Diet (Heart Healthy), Diabetes Type 2 Diet Discharge Diet Recommended Diet: AHA Diet (Heart Healthy), Diabetes Type 2 Diet Pending Studies Studies pending at discharge: yes List of pending studies: BASIC METABOLIC PANEL ON Wednesday03/24/17 Laboratory Results Hemoglobin A1c Test 03/06/17 06:25 Range/Units Estimated Average Glucose 134 mg/dl Hemoglobin A1c 6.3 H 4.5-5.6 % Medical Emergencies . Who to Call and When: Medical Emergencies: If at any time you feel your situation is an emergency, please call 911 immediately. . Non-Emergent Contact Non-Emergency issues call your: Primary Care Provider . . "Provider Documentation" section prepared by Corry Osborn. . VTE Core Measure Inpt VTE Proph given/why not?: Enoxaparin (Lovenox)SQ [place] Drug Monitoring Program Search Results: no issues identified Additional Copies To Lalo Flores PA-C Sulman,Keyon Barker D.O.
[2017-03-22] MEDS ORDERED: INSULIN DETEMIR FLEXPEN/FLEX TOUCH 100 UNITS/ML 3ML SQ SCH (22:00)
== END 2017-03-22 16:10 | disposition home or self-care (01) ==
LOC: ENRESERVTM → ENRESERVDT → C.EDB 07:24 → C.2T 10:20 → C.MS4W 03-20 19:58
PROVIDERS: ADMIT Hospitalist; ATTEND Hospitalist
DX: J44.1 Chronic obstructive pulmonary disease with (acute) exacerbation (principal); J96.20 Acute and chronic respiratory failure, unspecified whether with hypoxia or hypercapnia; I13.0 Hypertensive heart and chronic kidney disease with heart failure and stage 1 through stage 4 chronic kidney disease, or unspecified chronic kidney disease; I50.32 Chronic diastolic (congestive) heart failure; E66.9 Obesity, unspecified; E11.9 Type 2 diabetes mellitus without complications; E78.5 Hyperlipidemia, unspecified; M10.9 Gout, unspecified; F41.8 Other specified anxiety disorders; N18.3 Chronic kidney disease, stage 3 (moderate); N17.9 Acute kidney failure, unspecified; G47.33 Obstructive sleep apnea (adult) (pediatric); G25.81 Restless legs syndrome; Z82.49 Family history of ischemic heart disease and other diseases of the circulatory system; Z79.82 Long term (current) use of aspirin; Z79.899 Other long term (current) drug therapy; Z79.4 Long term (current) use of insulin; Z99.81 Dependence on supplemental oxygen

== ENCOUNTER 2017-08-26 14:24 | Emergency (ER) | payer OTHER ==
[~2017-08-26] VITALS: Ht 170.2 cm; Wt 130.0 kg
[~2017-08-26 14:24] MED LIST changes: -FURO40TA3 PO; -FURO80TA63 PO; -POTA20TA16 PO
[2017-08-26 14:38] VITALS: TEMP 36.5; Ht 170.2 cm; Wt 130.0 kg
[2017-08-26] MEDS ORDERED: CEFTRIAXONE SOD INJ 1 GM ADDVIAL IV STA (16:18)
[2017-08-26 17:15] LABS: HEMATOCRIT 41.9 % (42-52); MEAN CELL VOLUME 84.8 fL (80-100); MEAN CORPUSCULAR HEMOGLOBIN 27.5 pg (25-34); MEAN CORPUSCULAR HGB CONC 32.5 g/dl (32-36); MEAN PLATELET VOLUME 9.1 fL (7.4-10.4); PLATELET COUNT 245 K/uL (130-400); RED BLOOD COUNT 4.94 M/uL (4.7-6.1); WHITE BLOOD COUNT 27.32 K/uL (4.8-10.8)
[2017-08-26] MEDS ORDERED: LSX80 PO (17:22)
[2017-08-26] MEDS ORDERED: FRS/40 PO (17:22)
[2017-08-26] MEDS ORDERED: POTA20TA16 PO ×2 (17:22)
[2017-08-26 17:32] LABS: BUN/CREATININE RATIO 17.3 (10-20); CALCIUM 9.5 mg/dl (8.5-10.1); CREATININE 1.42 mg/dl (0.60-1.40); POTASSIUM 3.9 mmol/L (3.5-5.1)
[2017-08-26 18:18] LABS: URINE APPEARANCE CLEAR (CLEAR); URINE BILIRUBIN NEG (NEG); URINE COLOR DK YELLOW; URINE EPITHELIAL CELL AUTO >30 /lpf (0-5); URINE NITRITE NEG (NEG); URINE SPECIFIC GRAVITY 1.023 (1.000-1.030); UROBILINOGEN NEG (NEG); ZZURINE CULT IF INDIC CATH NO
[2017-08-26 18:19] LABS: MANUAL MICROSCOPIC REQUIRED? NO; REVIEW REQ? YES
--- NOTE | 2017-08-26 18:53 | DIAGNOSTIC IMAGING REPORT ---
CHEST ONE VIEW PORTABLE HISTORY: 72 years-old Male sob acute shortness of breath COMPARISON: Chest CT 03/21/2017, chest radiograph 03/19/2017 TECHNIQUE: Portable upright AP view of the chest FINDINGS: Cardiac silhouette is again enlarged. Mild pulmonary vascular congestion without overt pulmonary edema. No pneumothorax. There is blunting of the bilateral costophrenic angles suggesting trace effusions. There are hazy bibasilar opacities with linear subsegmental perihilar densities. Mild right hemidiaphragmatic elevation. Bones appear grossly intact. IMPRESSION: 1. Cardiomegaly with mild pulmonary vascular congestion, trace effusions and hazy bibasilar opacities suggesting atelectasis or pneumonia. 2. Linear subsegmental opacities of the mid lung bilaterally compatible with atelectasis. The above report was generated using voice recognition software. It may contain grammatical, syntax or spelling errors. Electronically signed by: Lazaro Ortega M.D. 08/26/2017 6:52 PM Dictated Date/Time: 08/26/2017 6:50 PM
[2017-08-26] MEDS ORDERED: LEVOFLOXACIN 250 MG TAB PO STA (18:56)
[2017-08-26] MEDS ORDERED: LEVO-366 PO (19:01)
--- NOTE | 2017-08-26 19:03 | EMERGENCY ROOM VISIT NOTE ---
History Report prepared by [employer]ile[employer]: Goldy Flores Under the Supervision of: Dr. Ricky Perez D.O. First contact with patient: 16:03 Chief Complaint: HEMATURIA Stated Complaint: SOB, WHEEZING History of Present Illness The patient is a 72 year old male who presents to the Emergency Room with complaints of persistent urinary symptoms that started this morning. He says that he has been having blood in his urine today, and feels the urgency to urinate but is having trouble actually urinating. The patient notes that he last urinated this morning. He adds that there are no large clots in his urine, but there is some blood. He says that he has never had anything like this before. The patient notes that he has not felt well over the past 2 days, and has not eaten anything. He says that he just has not been hungry. Per the patient's family, the patient has been sleeping more than usual as well. The patient notes that he took his Lasix this morning. He denies any cough, nausea, abdominal pain, vomiting, or diarrhea. He adds that he last had a bowel movement 2 days ago. Source of History: patient, family Onset: This morning Position: other (global - urinary symptoms) Quality: other (hematuria, having trouble urinating) Timing: other (persistent) Associated Symptoms: No cough, No nausea, No vomiting, No abdominal pain, No diarrhea Note: Associated symptoms: Not feeling well past few days, not eating much. Review of Systems See HPI for pertinent positives & negatives. A total of 10 systems reviewed and were otherwise negative. Past Medical & Surgical Medical Problems: (1) Anxiety (2) Benign essential hypertension (3) Body mass index 30+ - obesity (4) Depression (5) Diabetes mellitus type 2 (6) Diastolic heart failure (7) Dyslipidemia (8) Essential tremor (9) GI bleed (10) Gout (11) operations involv intentional restriction of air and airway (12) Obstructive sleep apnea on CPAP (13) Pericardial effusion (14) Renal cyst (15) Restless leg syndrome (16) Restrictive airway disease (17) SOB (shortness of breath) Surgical Problems: (1) H/O colonoscopy (2) H/O colonoscopy with polypectomy (3) H/O esophagogastroduodenoscopy (4) History of pericardiotomy (5) S/P tonsillectomy and adenoidectomy Family History Heart disease GRANDFATHER GRANDMOTHER Hypertension FATHER MOTHER SON Social History Smoking Status: Never Smoker Drug Use: none Marital Status: Housing Status: lives with family Occupation Status: retired Current/Historical Medications Scheduled Allopurinol (Zyloprim), 300 MG PO QPM Aspirin (Aspirin Ec), 81 MG PO QAM Atorvastatin (Lipitor), 10 MG PO QPM Ferrous Sulfate (Iron), 65 MG PO BID Furosemide (Furosemide), 1 TAB PO QAM Furosemide (Lasix), 40 MG PO NOON Glipizide (Glipizide), 5 MG PO BID Home O2 Therapy (Oxygen), 2 LITERS NA PRN Hydralazine HCl (Hydralazine HCl), 100 MG PO BID Insulin Detemir (Levemir Flextouch), 29 UNITS SQ DAILY Metoprolol Tartrate (Lopressor) (Lopressor), 75 MG PO BID Omeprazole (Prilosec), 40 MG PO QAM Paroxetine Hcl (Paxil), 30 MG PO QAM Potassium Ext Rel (Klor-Con), 20 MEQ PO QAM Potassium Ext Rel (Klor-Con), 10 MEQ PO NOON Scheduled PRN Albuterol Sulfate (Proventil Hfa), 2 PUFFS INH QID PRN for SOB/Wheezing Clonazepam (Klonopin), 1 MG PO BID PRN for Anxiety Allergies Coded Allergies: Minoxidil (Verified Allergy, Intermediate, RASH, 08/26/17) "DIDN'T FEEL GOOD" Venlafaxine (Verified Allergy, Intermediate, HTN, SHAKEY, 08/26/17) Amlodipine (Verified Allergy, Unknown, 08/26/17) Clonidine (Verified Adverse Reaction, Unknown, INTOLERANT, 08/26/17) Physical Exam Vital Signs Date Time Temp Pulse Resp B/P (MAP) Pulse Ox O2 Delivery O2 Flow Rate FiO2 08/26/17 18:40 22 179/101 96 Oxymask 2.0 08/26/17 17:08 24 150/75 98 Oxymask 08/26/17 14:38 36.5 86 18 157/82 94 Nasal Cannula 2.0 Physical Exam CONSTITUTIONAL/VITAL SIGNS: Reviewed / noted above. GENERAL: Non-toxic in appearance. INTEGUMENTARY: Warm, dry, and [place]. HEAD: Normocephalic. EYES: without scleral icterus or trauma. ENT/OROPHARYNX: clear and moist. LYMPHADENOPATHY/NECK: Is supple without lymphadenopathy or meningismus. RESPIRATORY: Lungs clear and equal. CARDIOVASCULAR: Regular rate and rhythm. GI/ABDOMEN: Soft and nontender. No organomegaly or pulsatile mass. No rebound or guarding. Normal bowel sounds. EXTREMITIES: Warm and well perfused. BACK: No CVA tenderness. NEUROLOGICAL: Intact without focal deficits. PSYCHIATRIC: normal affect. MUSCULOSKELETAL: Normally developed with good muscle tone. Medical Decision & Procedures Laboratory Results 08/26/17 17:00 08/26/17 17:00 Test 08/26/17 16:40 08/26/17 17:00 Urine Color DK YELLOW Urine Appearance CLEAR (CLEAR) Urine pH 5.0 (4.5-7.5) Urine Specific [place] 1.023 (1.000-1.030) Urine Protein 3+ (NEG) Urine Glucose (UA) NEG (NEG) Urine Ketones NEG (NEG) Urine Occult Blood 3+ (NEG) Urine Nitrite NEG (NEG) Urine Bilirubin NEG (NEG) Urine Urobilinogen NEG (NEG) Urine Leukocyte Esterase SMALL (NEG) Urine WBC (Auto) >30 /hpf (0-5) Urine RBC (Auto) >30 /hpf (0-4) Urine Hyaline Casts (Auto) 0 /lpf (0-5) Urine Epithelial Cells (Auto) >30 /lpf (0-5) Urine Bacteria (Auto) NEG (NEG) Urine Pathogenic Casts /lpf (0) Urine Yeast (Auto) (NONE PRSENT) Red Blood Count 4.94 M/uL (4.7-6.1) Mean Corpuscular Volume 84.8 fL (80-100) Mean Corpuscular Hemoglobin 27.5 pg (25-34) Mean Corpuscular Hemoglobin Concent 32.5 g/dl (32-36) RDW Standard Deviation 56.6 fL (36.4-46.3) RDW Coefficient of Variation 18.4 % (11.5-14.5) Mean Platelet Volume 9.1 fL (7.4-10.4) Anion Gap 8.0 mmol/L (3-11) Est Creatinine Clear Calc Drug Dose 62.8 ml/min Estimated GFR () 57.6 Estimated GFR (Non- 49.7 BUN/Creatinine Ratio 17.3 (10-20) Calcium Level 9.5 mg/dl (8.5-10.1) Laboratory results as stated above per my review. Medications Administered Medications (Trade) Dose Ordered Sig/Tamera Route Start Time Stop Time Status Last Admin Dose Admin Ceftriaxone Sodium (Rocephin Inj) 1 gm NOW STAT IV 08/26/17 16:18 08/26/17 16:21 DC 08/26/17 16:54 1 GM ED Course 1616: Previous medical records were reviewed. The patient was evaluated in room A9B. A complete history and physical examination was performed. 1618: Ordered Rocephin Inj 1 gm IV. Medical Decision Differential considered: pancreatitis, hepatitis, or acute cholecystitis, AAA, UTI, pyelonephritis, kidney stones, appendicitis, diverticulitis, shingles, bowel obstruction mesenteric ischemia, intussusception,hernia, testicular torsion. This is a 72-year-old male who presents to the ED with a chief complaint of hematuria. The patient states that he noticed the symptoms this morning. He also states that he had some trouble urinating tonight. He denies any other complaints. He does use oxygen at home. His nasal cannula oxygen saturation here is in the mid 90s. The patient does report some intermittent mild shortness of breath compared to his baseline. His physical reveals normal/ stable vital signs. The patient is a large gentleman. He is in no distress and nontoxic in appearance. His blood work reveals a BUN of 25 and a creatinine of 1.4. CBC reveals an elevated white blood cell count of 27. His white blood cell count has been elevated in the past but not this high. PRP was unremarkable otherwise. Urine reveals 3+ blood. No obvious infection. Chest x-ray is suggestive of some hazy bibasilar atelectasis versus pneumonia. The patient was placed on Levaquin. He does not appear ill at this point and I do not suspect that he requires admission. His white blood cell count is elevated and this could be related to infection, stress and/or some other underlying condition like CLL as he has had some elevation of his white blood cell count in the past. He was advised to follow-up with his family doctor for recheck tomorrow or early next week. He will return for worsening or new symptoms. He was given Levaquin here and started on Levaquin. He was also given 1 mg of IV Rocephin. Medication Reconcilliation Current Medication List: was personally reviewed by me Blood Pressure Screening Patient's blood pressure: Elevated blood pressure Blood pressure disposition: Elevated BP felt to be situational Impression Primary Impression: Hematuria Additional Impression: Pneumonia Scribe Attestation The scribe's documentation has been prepared under my direction and personally reviewed by me in its entirety. I confirm that the note above accurately reflects all work, treatment, procedures, and medical decision making performed by me. Departure Information Dispostion Home / Self-Care Prescriptions Levofloxacin (Levaquin) 500 Mg Tab 500 MG PO DAILY for 7 Days, #7 TAB Prov: Ricky Perez D.O. 08/26/17 Referrals Keyon Rdz D.O. (PCP) Colin Ugalde D.O. Patient Instructions ED Hematuria, ED Pneumonia Adult, My [facility] Additional Instructions Levaquin as prescribed. Follow-up with your family doctor for recheck. Call tomorrow for an appointment. Your white blood cell count is elevated and needs to be rechecked. Follow-up with urology for the blood in your urine. Call tomorrow for an appointment. Follow-up with your doctor for further care and evaluation in 1-2 days. Return to the emergency department for worsening or new symptoms or any concerns. You have been examined and treated today on an emergency basis only. This is not a substitute for, or an effort to provide, complete comprehensive medical care. It is impossible to recognize and treat all injuries or illnesses in a single emergency department visit. It is therefore important that you follow up closely with your doctor. Call as soon as possible for an appointment. Problem Qualifiers
[2017-08-26 19:29] VITALS: BP 146/86; PULSE 80; O2SAT 96
== END 2017-08-26 19:30 | disposition home or self-care (01) ==
LOC: C.EDB 14:25 → C.EDA 19:30
DX: R31.9 Hematuria, unspecified (principal); J18.9 Pneumonia, unspecified organism; F41.9 Anxiety disorder, unspecified; I10 Essential (primary) hypertension; E66.9 Obesity, unspecified; F32.9 Major depressive disorder, single episode, unspecified; E11.9 Type 2 diabetes mellitus without complications; I50.9 Heart failure, unspecified; E78.5 Hyperlipidemia, unspecified; M10.9 Gout, unspecified; G47.33 Obstructive sleep apnea (adult) (pediatric); J44.9 Chronic obstructive pulmonary disease, unspecified; Z82.49 Family history of ischemic heart disease and other diseases of the circulatory system; Z79.82 Long term (current) use of aspirin

== ENCOUNTER 2018-11-30 22:38 | Inpatient (IN) ==
[2018-11-30 23:04] LABS: Basophils # (auto) 0.02 K/uL (0-0.2); Basophils % (auto) 0.1 %; Eosinophils # (auto) 0.16 K/uL (0-0.5); Eosinophils % (auto) 0.7 %; Hematocrit (blood only) 43.4 % (42-52); Hemoglobin 13.6 g/dL (14.0-18.0); Immature Granulocytes # (auto) 0.09 K/uL (0.00-0.02); Immature Granulocytes % (auto) 0.4 %; Lymphocytes # (auto) 1.29 K/uL (1.2-3.4); Lymphocytes % (auto) 5.7 %; Mean Corpuscular Hgb Conc 31.3 g/dL (32-36); Mean Corpuscular Volume 91.4 fL (80-100); Mean Platelet Volume 9.4 fL (7.4-10.4); Neutrophils # (auto) 19.62 K/uL (1.4-6.5); Neutrophils % (auto) 86.1 %; Platelet Count 235 K/uL (130-400); RDW Coefficient of Variation 17.7 % (11.5-14.5); RDW Standard Deviation 59.7 fL (36.4-46.3); Red Blood Count 4.75 M/uL (4.7-6.1); White Blood Count 22.78 K/uL (4.8-10.8)
[2018-11-30 23:08] LABS: Base Excess VBG 6.4 mEq/L; Oxygen Saturation VBG 71.8 %; pH VBG 7.39 (7.36-7.41)
--- NOTE | 2018-11-30 23:09 | Emergency Department Note ---
Entered by Vaughn Hussein acting as a scribe for History of Present Illness General Chief complaint: Weakness Stated complaint: WEAKNESS, SOB Time Seen by Provider: 11/30/18 22:39 Source: patient and EMS History of Present Illness Provider complaint: Weakness Onset (ago): month(s) 1 Location: chest Radiation: non-radiation Pain Consistency: + other (Worsening) Associated symptoms: + cough, + shortness of breath and + other (No leg pain, no leg swelling); no chest pain and no fever/chills The patient is a 73 year old male who presents to the Emergency Room with complaints of worsening weakness and shortness of breath that has been present for the past month but worsened yesterday, per EMS. They also report that the patient did have a fall today. Upon arrival at the patient's house his O2 sat was 80% on 2L so he received a duoneb en route. He denies any chest pain, fever , leg pain, or leg swelling but does have an occasional cough. The patient is not on any blood thinners and has a history of COPD and obstructive sleep apnea. Home Medications Home Medications Medication Instructions Recorded Confirmed Type allopurinol 300 mg PO HS 11/30/18 11/30/18 History aspirin 81 mg PO QAM 11/30/18 11/30/18 History atorvastatin 20 mg PO HS 11/30/18 11/30/18 History clonazepam 1 mg PO BID PRN 11/30/18 11/30/18 History ferrous sulfate [iron] 325 mg PO BID 11/30/18 11/30/18 History glipizide 5 mg PO BID 11/30/18 11/30/18 History hydralazine 50 mg PO TID 11/30/18 11/30/18 History insulin detemir U-100 [Levemir 29 unit SUBCUT HS 11/30/18 11/30/18 History FlexTouch U-100 Insuln] lisinopril 20 mg PO QAM 11/30/18 11/30/18 History metoprolol tartrate 75 mg PO BID 11/30/18 11/30/18 History omeprazole 40 mg PO QAM 11/30/18 11/30/18 History paroxetine HCl 40 mg PO QAM 11/30/18 11/30/18 History potassium chloride [Klor-Con M20] 10 meq PO . LUNCHTIME 11/30/18 11/30/18 History potassium chloride [Klor-Con M20] 20 meq PO QAM 11/30/18 11/30/18 History torsemide 60 mg PO QAM 11/30/18 11/30/18 History trazodone 50 mg PO HS 11/30/18 11/30/18 History Allergies Allergy/AdvReac Type Severity Reaction Status Date / Time minoxidil Allergy Intermediate RASH Verified 11/30/18 23:59 venlafaxine Allergy Intermediate HTN, SHAKEY Verified 11/30/18 23:59 amlodipine Allergy Unknown Unknown Verified 11/30/18 23:58 clonidine AdvReac Unknown INTOLERANT Verified 11/30/18 23:59 Past Med/Surg History Medical History Renal cyst (Chronic) Obstructive sleep apnea on CPAP (Chronic) Gout (Chronic) Dyslipidemia (Chronic) Restless leg syndrome (Chronic) GI bleed (Resolved 03/14/14) Anxiety (Chronic) Depression (Chronic) Poorly-controlled hypertension (Acute) Tremor (Acute) Essential tremor (Chronic) Restrictive airway disease (Chronic) SOB (shortness of breath) Surgical History H/O colonoscopy with polypectomy (Resolved) "2012 - polyps, adenomatous" History of pericardiotomy (Resolved) S/P tonsillectomy and adenoidectomy (Chronic) H/O colonoscopy (Chronic) " 04/09/2014- adenomatous & TVA polyps, diverticulosis 04/29/2015- normal " H/O esophagogastroduodenoscopy (Chronic) " 03/15/2014- mild-mod inflammation " Family History Other Family history non-contributory Social History Current Living Situation: Spouse Feels Safe at Home: Yes Safety Concerns: Feels Safe At This Time Smoking Status: Never smoker Hx Alcohol Use: No Hx Substance Use: No Beliefs That Will Affect Care: None Preferred Language: Cymraes 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 and A total of 10 systems reviewed and were otherwise negative Physical Exam Vital Signs Vital Signs - 24 hr 11/30/18 22:29 11/30/18 22:45 12/01/18 00:10 Temperature 36.7 C Temperature Source Oral Sepsis Recent Fever Within 48 Hours No Sepsis Action Taken by Nursing No Action Required Pulse Rate 101 H Pulse Rate [Apical] 98 H Pulse Rhythm [Apical] Pulse Strength [Apical] Respiratory Rate 24 20 Respiratory Effort / Characteristics Spontaneous Labored Respiratory Depth Normal Respiratory Pattern Regular Blood Pressure [Right Arm] 161/88 H Blood Pressure Mean [Right Arm] 112 Blood Pressure Position [Right Arm] Pulse Oximetry 94 95 94 Pulse Oximetry [Right Index Finger] Oxygen Delivery Method Nasal Cannula Nasal Cannula Nasal Cannula Oxygen Delivery Method [Right Index Finger] Oxygen Flow Rate 3 3 4 Oxygen Flow Rate [Right Index Finger] 12/01/18 00:17 12/01/18 01:48 12/01/18 01:59 Temperature Temperature Source Sepsis Recent Fever Within 48 Hours Sepsis Action Taken by Nursing Pulse Rate Pulse Rate [Apical] 98 H Pulse Rhythm [Apical] Pulse Strength [Apical] Respiratory Rate 18 Respiratory Effort / Characteristics Non-Labored Spontaneous Respiratory Depth Normal Respiratory Pattern Blood Pressure [Right Arm] 162/82 H Blood Pressure Mean [Right Arm] 108 Blood Pressure Position [Right Arm] Pulse Oximetry 95 92 Pulse Oximetry [Right Index Finger] 94 Oxygen Delivery Method Nasal Cannula Nasal Cannula Oxygen Delivery Method [Right Index Finger] Nasal Cannula Oxygen Flow Rate 3 4 Oxygen Flow Rate [Right Index Finger] 4 12/01/18 02:28 12/01/18 02:58 12/01/18 03:10 Temperature 36.5 C Temperature Source Oral Sepsis Recent Fever Within 48 Hours Sepsis Action Taken by Nursing Pulse Rate 91 H Pulse Rate [Apical] 95 H Pulse Rhythm [Apical] Pulse Strength [Apical] Respiratory Rate 23 Respiratory Effort / Characteristics Non-Labored Spontaneous Labored SOB on Exertion Respiratory Depth Normal Shallow Respiratory Pattern Regular Tachypnea Blood Pressure [Right Arm] 161/81 H Blood Pressure Mean [Right Arm] 107 Blood Pressure Position [Right Arm] Pulse Oximetry 94 Pulse Oximetry [Right Index Finger] Oxygen Delivery Method Nasal Cannula Nasal Cannula Oxygen Delivery Method [Right Index Finger] Oxygen Flow Rate 4 4 Oxygen Flow Rate [Right Index Finger] 12/01/18 06:30 12/01/18 07:18 12/01/18 08:00 Temperature 36.7 C 36.8 C Temperature Source Oral Oral Sepsis Recent Fever Within 48 Hours Sepsis Action Taken by Nursing Pulse Rate 88 Pulse Rate [Apical] 88 87 Pulse Rhythm [Apical] Pulse Strength [Apical] Respiratory Rate 17 16 Respiratory Effort / Characteristics Non-Labored Respiratory Depth Normal Respiratory Pattern Regular Blood Pressure [Right Arm] 119/68 141/69 H Blood Pressure Mean [Right Arm] 85 93 Blood Pressure Position [Right Arm] Lying Lying Pulse Oximetry 94 95 Pulse Oximetry [Right Index Finger] Oxygen Delivery Method Nasal Cannula Nasal Cannula Nasal Cannula Oxygen Delivery Method [Right Index Finger] Oxygen Flow Rate 4 4 4 Oxygen Flow Rate [Right Index Finger] 12/01/18 11:08 12/01/18 15:25 Temperature 36.8 C 37.3 C Temperature Source Oral Oral Sepsis Recent Fever Within 48 Hours Sepsis Action Taken by Nursing Pulse Rate 89 Pulse Rate [Apical] 86 90 Pulse Rhythm [Apical] Regular Pulse Strength [Apical] Normal Respiratory Rate 20 20 Respiratory Effort / Characteristics Respiratory Depth Respiratory Pattern Blood Pressure [Right Arm] 143/81 H 115/72 Blood Pressure Mean [Right Arm] 101 86 Blood Pressure Position [Right Arm] Sitting Lying Pulse Oximetry 96 95 Pulse Oximetry [Right Index Finger] Oxygen Delivery Method Nasal Cannula Nasal Cannula Oxygen Delivery Method [Right Index Finger] Oxygen Flow Rate 4 4 Oxygen Flow Rate [Right Index Finger] GENERAL: Patient is listless and slow to respond to questioning. He does follow commands appropriately but very slowly. EYES: The conjunctivae are clear. The pupils are round and reactive. EARS, NOSE, MOUTH AND THROAT: The nose is without any evidence of any deformity. Mucous membranes are moist tongue is midline NECK: The neck is nontender and supple. RESPIRATORY: Shallow respirations were noted. Patient has very poor air movement. Diminished breath sounds were noted throughout. CARDIOVASCULAR: Regular rate and rhythm noted there no murmurs rubs or gallops normal S1 normal S2 GASTROINTESTINAL: The abdomen is soft. Bowel sounds are present in all quadrants. Abdomen is nontender MUSCULOSKELETAL/EXTREMITIES: There is no evidence of gross deformity full range of motion is noted in the hips and shoulders SKIN: There is no obvious evidence of any rash. Pedal edema was noted bilaterally. NEUROLOGIC: Patient is oriented to person place and situation. Strength was diminished but symmetric globally. Course 2241: Past medical records reviewed. The patient was evaluated in room B04B, and a complete history and physical examination were performed. 0020: I reevaluated the patient and updated him on the imaging results. We also discussed his treatment plan. 0038: I spoke to Dr. Francisca Chavez about the patient's case and he is going to accept the patient for further evaluation. Consultations Consultation #1: I spoke to Dr. Francisca Chavez about the patient 's case and he is going to accept the patient for further evaluation. Time: 00:38 Administered Medications Aspirin (Ecotrin Ectab) 81 mg PO QAM [facility] Stop: 12/31/18 08:59 Last Admin: 12/01/18 08:14 Dose: 81 mg Ferrous Sulfate (Feosol) 325 mg PO BID GON[facility]ALO Stop: 12/31/18 08:59 Last Admin: 12/01/18 08:14 Dose: 325 mg Heparin Sodium (Porcine) (Heparin Sodium (Porcine)) 5,000 units SQ Q8H [facility] Stop: 12/31/18 05:59 Last Admin: 12/01/18 14:12 Dose: 5,000 units Admin: 12/01/18 06:04 Dose: 5,000 units Hydralazine HCl (Apresoline) 50 mg PO TID [facility] Stop: 12/31/18 08:59 Last Admin: 12/01/18 14:14 Dose: 50 mg Admin: 12/01/18 08:14 Dose: 50 mg Insulin Aspart (Novolog Flexpen) 0 units SC ACHS [facility] Stop: 12/31/18 07:29 Last Admin: 12/01/18 16:35 Dose: Not Given Admin: 12/01/18 11:47 Dose: Not Given Admin: 12/01/18 08:10 Dose: Not Given Insulin Detemir (Levemir Flextouch) 10 units SC BID [facility] Stop: 12/31/18 08:59 Last Admin: 12/01/18 08:11 Dose: 10 units Pantoprazole Sodium (Protonix) 40 mg PO QAM [facility] Stop: 12/31/18 08:59 Last Admin: 12/01/18 08:14 Dose: 40 mg Paroxetine HCl (Paxil) 40 mg PO QAM [facility] Stop: 12/31/18 08:59 Last Admin: 12/01/18 08:12 Dose: 40 mg Potassium Chloride (Klor-Con M20) 20 meq PO QAM [facility] Stop: 12/31/18 08:59 Last Admin: 12/01/18 08:13 Dose: 20 meq Discontinued Medications Furosemide (Lasix) 60 mg IV NOW STA Stop: 12/01/18 01:09 Last Admin: 12/01/18 01:41 Dose: 60 mg Furosemide (Lasix) 60 mg IV ONE ONE Stop: 12/01/18 17:01 Last Admin: 12/01/18 17:27 Dose: 60 mg Cefepime HCl 2,000 mg/ Syringe 20 mls @ 1 mls/min IV NOW STA Stop: 12/01/18 04:11 Last Admin: 12/01/18 04:22 Dose: 1 mls/min Ioversol (Optiray 320 125ml) 125 ml IV ONCE PRN PRN Reason: Interaction Checking Stop: 12/05/18 00:11 Last Admin: 12/01/18 00:12 Dose: 116 ml Metoprolol Tartrate (Lopressor) 75 mg PO BID GONZALO Stop: 12/31/18 02:59 Last Admin: 12/01/18 05:11 Dose: 75 mg Medical Decision Making Differential Diagnosis Differential diagnoses includes but is not limited to pneumonia, bronchitis, COPD/Asthma exacerbation, pneumothorax, pulmonary embolism, congestive heart failure, acute coronary syndrome Medical Records Attestation: I reviewed the patient's medical records. Home Medications Current Medication List: was personally reviewed by me Laboratory Data Attestation: I reviewed the patient's lab results. Result diagrams: 12/01/18 03:52 12/01/18 03:52 Lab Results 11/30/18 11/30/18 11/30/18 Range/Units 22:54 22:54 22:54 WBC 22.78 H (4.8-10.8) K/uL RBC 4.75 (4.7-6.1) M/uL Hgb 13.6 L (14.0-18.0) g/dL Hct 43.4 (42-52) % MCV 91.4 (80-100) fL MCH 28.6 (25-34) pg MCHC 31.3 L (32-36) g/dL RDW Std Deviation 59.7 H (36.4-46.3) fL RDW Coeff of Alfonso 17.7 H (11.5-14.5) % Plt Count 235 (130-400) K/uL MPV 9.4 (7.4-10.4) fL Immature Gran % (Auto) 0.4 % Neut % (Auto) 86.1 % Lymph % (Auto) 5.7 % [place] % (Auto) 7.0 % Eos % (Auto) 0.7 % Baso % (Auto) 0.1 % Immature Gran # (Auto) 0.09 H (0.00-0.02) K/uL Neut # (Auto) 19.62 H (1.4-6.5) K/uL Lymph # (Auto) 1.29 (1.2-3.4) K/uL [place] # (Auto) 1.60 H (0.11-0.59) K/uL Eos # (Auto) 0.16 (0-0.5) K/uL Baso # (Auto) 0.02 (0-0.2) K/uL PT (9.0-12.0) Seconds INR (0.9-1.1) APTT (21.0-31.0) Seconds PTT Ratio VBG pH 7.39 (7.36-7.41) VBG pCO2 57 H (38-50) mmHg VBG pO2 38 mmHg VBG HCO3 33 mmol/L VBG O2 Saturation 71.8 % VBG Base Excess 6.4 mEq/L Barometric Pressure 736.2 mm/Hg Sodium 137 (136-145) mmol/L Potassium 3.9 (3.5-5.1) mmol/L Chloride 98 (98-107) mmol/L Carbon Dioxide 31 (21-32) mmol/L Anion Gap 8.0 (3-11) BUN 39 H (7-18) mg/dl Creatinine 1.72 H (0.6-1.4) mg/dl Est Cr Clr Drug Dosing 52.6 ml/min Est GFR ( Amer) 45.4 Est GFR (Non-Af Amer) 39.1 BUN/Creatinine Ratio 22.6 H (10-20) Glucose 127 H (70-99) mg/dl POC Glucose (70-99) Lactate (0.4-2.0) mmol/L Calcium 9.1 (8.5-10.1) mg/dl Magnesium 2.1 (1.8-2.4) mg/dl Total Bilirubin 0.9 (0.2-1) mg/dl AST 20 (15-37) U/L ALT 22 (12-78) U/L Alkaline Phosphatase 99 (45-117) U/L Total Creatine Kinase 89 (39-308) U/L CK-MB (CK-2) 5.8 H (0.5-3.6) ng/ml CK/CKMB % Calc 6.5 H (0-3.0) Troponin I 1.570 H* (0-0.045) ng/ml Total Protein 7.6 (6.4-8.2) gm/dl Albumin 3.3 L (3.4-5.0) gm/dl Globulin 4.3 H (2.5-4.0) gm/dl Albumin/Globulin Ratio 0.8 L (0.9-2) Triglycerides (0-150) mg/dl Cholesterol (0-200) mg/dl LDL Cholesterol, Calc mg/dl VLDL Cholesterol, Calc mg/dl HDL Cholesterol mg/dl Cholesterol/HDL Ratio Procalcitonin (0-0.5) ng/ml TSH (0.300-4.500) uIu/ml Urine Color Urine Appearance (Clear) Urine pH (4.5-7.5) Ur Specific [place] (1.000-1.030) Urine Protein (Negative) Urine Glucose (UA) (Negative) Urine Ketones (Negative) Urine Blood (Negative) Urine Nitrite (Negative) Urine Bilirubin (Negative) Urine Urobilinogen (Negative) Ur Leukocyte Esterase (Negative) Urine WBC (Auto) (0-5) /hpf Urine RBC (Auto) (0-4) /hpf U Hyaline Cast (Auto) (0-5) /lpf U Epithel Cells (Auto) (0-5) /lpf Urine Bacteria (Auto) (Negative) 11/30/18 11/30/18 12/01/18 Range/Units 22:54 22:54 01:04 WBC (4.8-10.8) K/uL RBC (4.7-6.1) M/uL Hgb (14.0-18.0) g/dL Hct (42-52) % MCV (80-100) fL MCH (25-34) pg MCHC (32-36) g/dL RDW Std Deviation (36.4-46.3) fL RDW Coeff of Alfonso (11.5-14.5) % Plt Count (130-400) K/uL MPV (7.4-10.4) fL Immature Gran % (Auto) % Neut % (Auto) % Lymph % (Auto) % [place] % (Auto) % Eos % (Auto) % Baso % (Auto) % Immature Gran # (Auto) (0.00-0.02) K/uL Neut # (Auto) (1.4-6.5) K/uL Lymph # (Auto) (1.2-3.4) K/uL [place] # (Auto) (0.11-0.59) K/uL Eos # (Auto) (0-0.5) K/uL Baso # (Auto) (0-0.2) K/uL PT 10.8 (9.0-12.0) Seconds INR 1.1 (0.9-1.1) APTT 33.8 H (21.0-31.0) Seconds PTT Ratio 1.3 VBG pH (7.36-7.41) VBG pCO2 (38-50) mmHg VBG pO2 mmHg VBG HCO3 mmol/L VBG O2 Saturation % VBG Base Excess mEq/L Barometric Pressure mm/Hg Sodium (136-145) mmol/L Potassium (3.5-5.1) mmol/L Chloride (98-107) mmol/L Carbon Dioxide (21-32) mmol/L Anion Gap (3-11) BUN (7-18) mg/dl Creatinine (0.6-1.4) mg/dl Est Cr Clr Drug Dosing ml/min Est GFR ( Amer) Est GFR (Non-Af Amer) BUN/Creatinine Ratio (10-20) Glucose (70-99) mg/dl POC Glucose (70-99) Lactate (0.4-2.0) mmol/L Calcium (8.5-10.1) mg/dl Magnesium (1.8-2.4) mg/dl Total Bilirubin (0.2-1) mg/dl AST (15-37) U/L ALT (12-78) U/L Alkaline Phosphatase (45-117) U/L Total Creatine Kinase (39-308) U/L CK-MB (CK-2) (0.5-3.6) ng/ml CK/CKMB % Calc (0-3.0) Troponin I 1.450 H* (0-0.045) ng/ml Total Protein (6.4-8.2) gm/dl Albumin (3.4-5.0) gm/dl Globulin (2.5-4.0) gm/dl Albumin/Globulin Ratio (0.9-2) Triglycerides (0-150) mg/dl Cholesterol (0-200) mg/dl LDL Cholesterol, Calc mg/dl VLDL Cholesterol, Calc mg/dl HDL Cholesterol mg/dl Cholesterol/HDL Ratio Procalcitonin 0.58 H (0-0.5) ng/ml TSH 2.100 (0.300-4.500) uIu/ml Urine Color Urine Appearance (Clear) Urine pH (4.5-7.5) Ur Specific [place] (1.000-1.030) Urine Protein (Negative) Urine Glucose (UA) (Negative) Urine Ketones (Negative) Urine Blood (Negative) Urine Nitrite (Negative) Urine Bilirubin (Negative) Urine Urobilinogen (Negative) Ur Leukocyte Esterase (Negative) Urine WBC (Auto) (0-5) /hpf Urine RBC (Auto) (0-4) /hpf U Hyaline Cast (Auto) (0-5) /lpf U Epithel Cells (Auto) (0-5) /lpf Urine Bacteria (Auto) (Negative) 12/01/18 12/01/18 12/01/18 Range/Units 03:00 03:20 03:52 WBC 20.30 H (4.8-10.8) K/uL RBC 4.60 L (4.7-6.1) M/uL Hgb 13.1 L (14.0-18.0) g/dL Hct 41.7 L (42-52) % MCV 90.7 (80-100) fL MCH 28.5 (25-34) pg MCHC 31.4 L (32-36) g/dL RDW Std Deviation 59.7 H (36.4-46.3) fL RDW Coeff of Alfonso 17.9 H (11.5-14.5) % Plt Count 217 (130-400) K/uL MPV 9.0 (7.4-10.4) fL Immature Gran % (Auto) 0.4 % Neut % (Auto) 85.6 % Lymph % (Auto) 5.6 % [place] % (Auto) 7.7 % Eos % (Auto) 0.6 % Baso % (Auto) 0.1 % Immature Gran # (Auto) 0.09 H (0.00-0.02) K/uL Neut # (Auto) 17.37 H (1.4-6.5) K/uL Lymph # (Auto) 1.13 L (1.2-3.4) K/uL [place] # (Auto) 1.56 H (0.11-0.59) K/uL Eos # (Auto) 0.13 (0-0.5) K/uL Baso # (Auto) 0.02 (0-0.2) K/uL PT (9.0-12.0) Seconds INR (0.9-1.1) APTT (21.0-31.0) Seconds PTT Ratio VBG pH (7.36-7.41) VBG pCO2 (38-50) mmHg VBG pO2 mmHg VBG HCO3 mmol/L VBG O2 Saturation % VBG Base Excess mEq/L Barometric Pressure mm/Hg Sodium (136-145) mmol/L Potassium (3.5-5.1) mmol/L Chloride (98-107) mmol/L Carbon Dioxide (21-32) mmol/L Anion Gap (3-11) BUN (7-18) mg/dl Creatinine (0.6-1.4) mg/dl Est Cr Clr Drug Dosing ml/min Est GFR ( Amer) Est GFR (Non-Af Amer) BUN/Creatinine Ratio (10-20) Glucose (70-99) mg/dl POC Glucose 146 H (70-99) Lactate (0.4-2.0) mmol/L Calcium (8.5-10.1) mg/dl Magnesium (1.8-2.4) mg/dl Total Bilirubin (0.2-1) mg/dl AST (15-37) U/L ALT (12-78) U/L Alkaline Phosphatase (45-117) U/L Total Creatine Kinase (39-308) U/L CK-MB (CK-2) (0.5-3.6) ng/ml CK/CKMB % Calc (0-3.0) Troponin I (0-0.045) ng/ml Total Protein (6.4-8.2) gm/dl Albumin (3.4-5.0) gm/dl Globulin (2.5-4.0) gm/dl Albumin/Globulin Ratio (0.9-2) Triglycerides (0-150) mg/dl Cholesterol (0-200) mg/dl LDL Cholesterol, Calc mg/dl VLDL Cholesterol, Calc mg/dl HDL Cholesterol mg/dl Cholesterol/HDL Ratio Procalcitonin (0-0.5) ng/ml TSH (0.300-4.500) uIu/ml Urine Color [place] Urine Appearance Turbid H (Clear) Urine pH 6.5 (4.5-7.5) Ur Specific [place] 1.015 (1.000-1.030) Urine Protein 1+ H (Negative) Urine Glucose (UA) Negative (Negative) Urine Ketones Negative (Negative) Urine Blood 3+ H (Negative) Urine Nitrite Negative (Negative) Urine Bilirubin Negative (Negative) Urine Urobilinogen Negative (Negative) Ur Leukocyte Esterase 3+ H (Negative) Urine WBC (Auto) >30 H (0-5) /hpf Urine RBC (Auto) >30 H (0-4) /hpf U Hyaline Cast (Auto) 1-5 (0-5) /lpf U Epithel Cells (Auto) >30 H (0-5) /lpf Urine Bacteria (Auto) 2+ H (Negative) 12/01/18 12/01/18 12/01/18 Range/Units 03:52 03:52 03:52 WBC (4.8-10.8) K/uL RBC (4.7-6.1) M/uL Hgb (14.0-18.0) g/dL Hct (42-52) % MCV (80-100) fL MCH (25-34) pg MCHC (32-36) g/dL RDW Std Deviation (36.4-46.3) fL RDW Coeff of Alfonso (11.5-14.5) % Plt Count (130-400) K/uL MPV (7.4-10.4) fL Immature Gran % (Auto) % Neut % (Auto) % Lymph % (Auto) % [place] % (Auto) % Eos % (Auto) % Baso % (Auto) % Immature Gran # (Auto) (0.00-0.02) K/uL Neut # (Auto) (1.4-6.5) K/uL Lymph # (Auto) (1.2-3.4) K/uL [place] # (Auto) (0.11-0.59) K/uL Eos # (Auto) (0-0.5) K/uL Baso # (Auto) (0-0.2) K/uL PT (9.0-12.0) Seconds INR (0.9-1.1) APTT 32.9 H (21.0-31.0) Seconds PTT Ratio 1.3 VBG pH (7.36-7.41) VBG pCO2 (38-50) mmHg VBG pO2 mmHg VBG HCO3 mmol/L VBG O2 Saturation % VBG Base Excess mEq/L Barometric Pressure mm/Hg Sodium 137 (136-145) mmol/L Potassium 3.8 (3.5-5.1) mmol/L Chloride 99 (98-107) mmol/L Carbon Dioxide 34 H (21-32) mmol/L Anion Gap 4.0 (3-11) BUN 37 H (7-18) mg/dl Creatinine 1.58 H (0.6-1.4) mg/dl Est Cr Clr Drug Dosing 57.0 ml/min Est GFR ( Amer) 50.3 Est GFR (Non-Af Amer) 43.4 BUN/Creatinine Ratio 23.1 H (10-20) Glucose 142 H (70-99) mg/dl POC Glucose (70-99) Lactate 1.2 (0.4-2.0) mmol/L Calcium 9.2 (8.5-10.1) mg/dl Magnesium (1.8-2.4) mg/dl Total Bilirubin (0.2-1) mg/dl AST (15-37) U/L ALT (12-78) U/L Alkaline Phosphatase (45-117) U/L Total Creatine Kinase (39-308) U/L CK-MB (CK-2) (0.5-3.6) ng/ml CK/CKMB % Calc (0-3.0) Troponin I 1.380 H* (0-0.045) ng/ml Total Protein (6.4-8.2) gm/dl Albumin (3.4-5.0) gm/dl Globulin (2.5-4.0) gm/dl Albumin/Globulin Ratio (0.9-2) Triglycerides 156 H (0-150) mg/dl Cholesterol 143 (0-200) mg/dl LDL Cholesterol, Calc 73 mg/dl VLDL Cholesterol, Calc 31 mg/dl HDL Cholesterol 39 mg/dl Cholesterol/HDL Ratio 4 Procalcitonin (0-0.5) ng/ml TSH (0.300-4.500) uIu/ml Urine Color Urine Appearance (Clear) Urine pH (4.5-7.5) Ur Specific [place] (1.000-1.030) Urine Protein (Negative) Urine Glucose (UA) (Negative) Urine Ketones (Negative) Urine Blood (Negative) Urine Nitrite (Negative) Urine Bilirubin (Negative) Urine Urobilinogen (Negative) Ur Leukocyte Esterase (Negative) Urine WBC (Auto) (0-5) /hpf Urine RBC (Auto) (0-4) /hpf U Hyaline Cast (Auto) (0-5) /lpf U Epithel Cells (Auto) (0-5) /lpf Urine Bacteria (Auto) (Negative) 12/01/18 12/01/18 12/01/18 Range/Units 07:30 11:04 15:58 WBC (4.8-10.8) K/uL RBC (4.7-6.1) M/uL Hgb (14.0-18.0) g/dL Hct (42-52) % MCV (80-100) fL MCH (25-34) pg MCHC (32-36) g/dL RDW Std Deviation (36.4-46.3) fL RDW Coeff of Alfonso (11.5-14.5) % Plt Count (130-400) K/uL MPV (7.4-10.4) fL Immature Gran % (Auto) % Neut % (Auto) % Lymph % (Auto) % [place] % (Auto) % Eos % (Auto) % Baso % (Auto) % Immature Gran # (Auto) (0.00-0.02) K/uL Neut # (Auto) (1.4-6.5) K/uL Lymph # (Auto) (1.2-3.4) K/uL [place] # (Auto) (0.11-0.59) K/uL Eos # (Auto) (0-0.5) K/uL Baso # (Auto) (0-0.2) K/uL PT (9.0-12.0) Seconds INR (0.9-1.1) APTT (21.0-31.0) Seconds PTT Ratio VBG pH (7.36-7.41) VBG pCO2 (38-50) mmHg VBG pO2 mmHg VBG HCO3 mmol/L VBG O2 Saturation % VBG Base Excess mEq/L Barometric Pressure mm/Hg Sodium (136-145) mmol/L Potassium (3.5-5.1) mmol/L Chloride (98-107) mmol/L Carbon Dioxide (21-32) mmol/L Anion Gap (3-11) BUN (7-18) mg/dl Creatinine (0.6-1.4) mg/dl Est Cr Clr Drug Dosing ml/min Est GFR ( Amer) Est GFR (Non-Af Amer) BUN/Creatinine Ratio (10-20) Glucose (70-99) mg/dl POC Glucose 133 H 155 H 136 H (70-99) Lactate (0.4-2.0) mmol/L Calcium (8.5-10.1) mg/dl Magnesium (1.8-2.4) mg/dl Total Bilirubin (0.2-1) mg/dl AST (15-37) U/L ALT (12-78) U/L Alkaline Phosphatase (45-117) U/L Total Creatine Kinase (39-308) U/L CK-MB (CK-2) (0.5-3.6) ng/ml CK/CKMB % Calc (0-3.0) Troponin I (0-0.045) ng/ml Total Protein (6.4-8.2) gm/dl Albumin (3.4-5.0) gm/dl Globulin (2.5-4.0) gm/dl Albumin/Globulin Ratio (0.9-2) Triglycerides (0-150) mg/dl Cholesterol (0-200) mg/dl LDL Cholesterol, Calc mg/dl VLDL Cholesterol, Calc mg/dl HDL Cholesterol mg/dl Cholesterol/HDL Ratio Procalcitonin (0-0.5) ng/ml TSH (0.300-4.500) uIu/ml Urine Color Urine Appearance (Clear) Urine pH (4.5-7.5) Ur Specific [place] (1.000-1.030) Urine Protein (Negative) Urine Glucose (UA) (Negative) Urine Ketones (Negative) Urine Blood (Negative) Urine Nitrite (Negative) Urine Bilirubin (Negative) Urine Urobilinogen (Negative) Ur Leukocyte Esterase (Negative) Urine WBC (Auto) (0-5) /hpf Urine RBC (Auto) (0-4) /hpf U Hyaline Cast (Auto) (0-5) /lpf U Epithel Cells (Auto) (0-5) /lpf Urine Bacteria (Auto) (Negative) Imaging Data My Impression: X ray results are stated below per my interpretation: Chest: 1 view: Cardiomegaly noted, atelectasis, and no definite infiltrate. No change from 08/26/17 Radiologist's Impression: Radiology results as stated below per my review and the radiologist's interpretation: CT HEAD Comparison 02/05/15 No visualized acute intracranial hemorrhage or mass effect. No definitive evidence of cortical edema. Stable ventricular enlargement, likely related to the degree of cortical volume loss. Stable sequela of chronic small vessel ischemia and likely old lacunar infarct in left basal ganglia. No acute findings in the visualized paranasal sinuses or mastoid air cells. Radiologist: Savage Sánchez MD Study ready at 23:26 and initial results transmitted at 23:54 CT the chest was obtained in the emergency department. The report was reviewed. Preliminary Findings Only See Final Report For Complete Findings CTA CHEST: Comparison 03/21/17 No obvious occlusive embolus within the pulmonary trunk or main pulmonary arteries. Pulmonary arterial contrast is otherwise insufficient to adequately characterize for pulmonary embolus. Cardiomegaly. Multivessel coronary artery calcifications. Small right and moderate left pleural effusions. Mosaic attenuation to the lungs could be related to low volume and air trapping or edema. Bilateral atelectasis is noted. Aortic atherosclerosis. Ectasia of the ascending aorta to 3.5 cm. Mediastinal lymphadenopathy measuring up to short axis caliber of 16 mm. Thyroid nodule on the left projecting posteriorly measuring 2.1 cm. Nonemergent ultrasound correlate is recommended. Degenerative disc changes. Splenomegaly with AP length of 19.4 cm. Radiologist: Savage Sánchez MD Study ready at 00:13 and initial results transmitted at 00:35 ECG Data Attestation: I personally reviewed and interpreted this ECG as follows: Indication: SOB/dyspnea and weakness Rate (beats per minute): 101 Rhythm: sinus tachycardia Findings: + other (T wave abnormality in lateral leads) Comparison ECG Date: from (03/19/17) Change: the following changes noted (T wave abnormality) Blood Pressure Blood Pressure Findings: Elevated blood pressure Blood Pressure Disposition: further management by hospitalist BRUNILDA Narrative The patient is a 73-year-old male who presented to the emergency department for an evaluation of altered mental status. The patient presented to the emergency department via ambulance. His significant other had called 911. The patient offers no complaints other than he states that he is been feeling weak and having difficulty ambulating over the last few days. The patient was hypoxic. He was not and CO2 retention. I discussed the patient's laboratory and radiographic studies with him. He was found to have EKG changes with some new T wave abnormalities but was also found to have an elevated troponin. I discussed the patient's condition with the on-call [facility] hospitalist. He is agreed to evaluate the patient immediately in the emergency department. I would defer heparinization to the admitting team. Impression & Plan NSTEMI (non-ST elevated myocardial infarction), COPD exacerbation, Weakness, Hypoxia Discharge Plan Visit Data *Final* Discharge Date/Time: 12/01/18 02:40 Chief Complaint: Weakness Stated Complaint: WEAKNESS, SOB ED Provider: Alvin Negrete Discharge Problem: NSTEMI (non-ST elevated myocardial infarction), COPD exacerbation, Weakness, Hypoxia Patient Disposition: Admitted As Inpatient The scribe's documentation has been prepared under my direction and personally reviewed by me in its entirety. I confirm that the note above accurately reflects all work, treatment, procedures, and medical decision making performed by me.
[2018-11-30 23:17] LABS: INR 1.1 (0.9-1.1); Partial Thromboplastin Ratio 1.3; Partial Thromboplastin Time 33.8 Seconds (21.0-31.0); Prothrombin Time 10.8 Seconds (9.0-12.0)
[2018-11-30 23:26] LABS: Albumin Level 3.3 gm/dl (3.4-5.0); BUN Creatinine Ratio 22.6 (10-20); Calcium 9.1 mg/dl (8.5-10.1); Creatinine Clr Calc Pharmacy 52.6 ml/min; Est GFR (African American) 45.4; Est GFR (Non-African American) 39.1; Magnesium 2.1 mg/dl (1.8-2.4); Potassium 3.9 mmol/L (3.5-5.1)
[2018-11-30 23:35] LABS: Albumin Globulin Ratio 0.8 (0.9-2); Bilirubin,Total 0.9 mg/dl (0.2-1); Creatine Kinase MB 5.8 ng/ml (0.5-3.6); Globulin 4.3 gm/dl (2.5-4.0); Total Protein 7.6 gm/dl (6.4-8.2); Troponin I 1.57 ng/ml (0-0.045)
[2018-12-01] MEDS ORDERED: OPTIRAY 320 125ml IV PRN (00:12)
[2018-12-01] MEDS ORDERED: FUROSEMIDE 40 MG/4 ML VIAL IV STA (01:08)
--- NOTE | 2018-12-01 01:38 | History & Physical Report ---
Date of Service December 01, 2018 Assessment & Plan (1) Respiratory failure: Acute on chronic Secondary to decompensated heart failure, subacute symptoms ? Uncontrolled BP, worsening kidney function as precipitants Troponin elevation secondary to above Downward trend noted on subsequent determination obstructive sleep apnea/restrictive lung disease as per records as per records Generalized weakness secondary to subacute CHF ? UTI contributory, possible sepsis DM2 insulin requiring, well controlled as of recent outpatient hemoglobin A1c of 5.8 last September 2018 chronic anemia secondary to CKD, hemoglobin at baseline PCU Supplemental O2 Diuretic Rx Daily renal function Strict I/Os, daily weights, CHF education Cardiology consult RE decompensated heart failure Titrate antihypertensive medications Follow urine cultures, IV Cefepime Basal insulin, ISS BG goal 140-180 DVT prophylaxis. Heparin subcu Full code Total critical care time was 45 minutes. History of Present Illness Chief Complaint: Shortness of breath Primary Care Provider: Keyon Rdz, Medical history significant for chronic respiratory failure on home O2, obstructive sleep apnea, restrictive lung disease as per records, chronic diastolic heart failure (EF 55- 60% TTE 2017), hypertension, DM2 insulin requiring, CRI (baseline creatinine of 1.4-1.5), chronic anemia (baseline hemoglobin of 13). Recent confinement March 2017 for COPD exacerbation. Patient seen at [facility] cardiology office last month for follow-up. Patient complaining of being tired all the time, can barely walk, shortness of breath on exertion. Diuretic therapy titrated as per records. Patient noted worsening shortness of breath yesterday. Denies chest pain, unusual cough symptoms. Admits to weight gain despite compliance with diuretic Rx. Patient unaware of BP control at home. Medical History as above TTE October 2018: Mild concentric LVH, EF 55-60%, grade 2 diastolic dysfunction , no significant valvular pathology, moderate LAE. Family History : Heart disease, stroke Personal/Social history : Non-smoker, no EtOH intake, disabled Allergies Allergy/AdvReac Type Severity Reaction Status Date / Time minoxidil Allergy Intermediate RASH Verified 11/30/18 23:59 venlafaxine Allergy Intermediate HTN, SHAKEY Verified 11/30/18 23:59 amlodipine Allergy Unknown Unknown Verified 11/30/18 23:58 clonidine AdvReac Unknown INTOLERANT Verified 11/30/18 23:59 Home Medications Home Medications Medication Instructions Recorded Confirmed Type allopurinol 300 mg PO HS 11/30/18 11/30/18 History aspirin 81 mg PO QAM 11/30/18 11/30/18 History atorvastatin 20 mg PO HS 11/30/18 11/30/18 History clonazepam 1 mg PO BID PRN 11/30/18 11/30/18 History ferrous sulfate [iron] 325 mg PO BID 11/30/18 11/30/18 History glipizide 5 mg PO BID 11/30/18 11/30/18 History hydralazine 50 mg PO TID 11/30/18 11/30/18 History insulin detemir U-100 [Levemir 29 unit SUBCUT HS 11/30/18 11/30/18 History FlexTouch U-100 Insuln] lisinopril 20 mg PO QAM 11/30/18 11/30/18 History metoprolol tartrate 75 mg PO BID 11/30/18 11/30/18 History omeprazole 40 mg PO QAM 11/30/18 11/30/18 History paroxetine HCl 40 mg PO QAM 11/30/18 11/30/18 History potassium chloride [Klor-Con M20] 10 meq PO . LUNCHTIME 11/30/18 11/30/18 History potassium chloride [Klor-Con M20] 20 meq PO QAM 11/30/18 11/30/18 History torsemide 60 mg PO QAM 11/30/18 11/30/18 History trazodone 50 mg PO HS 11/30/18 11/30/18 History Past Med/Surg History Medical History Renal cyst (Chronic) Obstructive sleep apnea on CPAP (Chronic) Gout (Chronic) Dyslipidemia (Chronic) Restless leg syndrome (Chronic) GI bleed (Resolved 03/14/14) Anxiety (Chronic) Depression (Chronic) Poorly-controlled hypertension (Acute) Tremor (Acute) Essential tremor (Chronic) Restrictive airway disease (Chronic) SOB (shortness of breath) Surgical History H/O colonoscopy with polypectomy (Resolved) "2012 - polyps, adenomatous" History of pericardiotomy (Resolved) S/P tonsillectomy and adenoidectomy (Chronic) H/O colonoscopy (Chronic) " 04/09/2014- adenomatous & TVA polyps, diverticulosis 04/29/2015- normal " H/O esophagogastroduodenoscopy (Chronic) " 03/15/2014- mild-mod inflammation " Family History Other Family history non-contributory Social History Current Living Situation: Spouse Feels Safe at Home: Yes Safety Concerns: Feels Safe At This Time Smoking Status: Never smoker Hx Alcohol Use: No Hx Substance Use: No Beliefs That Will Affect Care: None Preferred Language: Lao Communication Ability: Effective Wildlife Control Agent Required: No Review of Systems As per HPI, all 10 systems reviewed, all other ROS negative Physical Exam 2 Vital Signs (Past 24 Hours): Last Vital Signs Temp 36.7 C 11/30/18 22:29 Pulse 98 H 12/01/18 00:10 Resp 20 12/01/18 00:10 BP 161/88 H 12/01/18 00:10 Pulse Ox 95 12/01/18 00:17 Physical Exam: GENERAL: Obese, anxious, minimal respiratory distress, unkempt SKIN: pallor, warm HEENT: Pale palpebral conjunctivae, no ptosis, dry buccal mucosa NECK : Supple, short, no tenderness CHEST : Decreased breath sounds, no tenderness HEART : RRR, no obvious murmurs ABDOMEN: distention, nontender EXTREMITIES : minimal LE swelling, no tenderness, no other conspicuous deformities noted NEUROLOGIC : Coherent, no facial asymmetry, no other gross focality except for mild hearing impairment Results & Data Laboratory Results Laboratory Results WBC 22.78 K/uL (4.8-10.8) H 11/30/18 22:54 RBC 4.75 M/uL (4.7-6.1) 11/30/18 22:54 Hgb 13.6 g/dL (14.0-18.0) L 11/30/18 22:54 Hct 43.4 % (42-52) 11/30/18 22:54 MCV 91.4 fL (80-100) 11/30/18 22:54 MCH 28.6 pg (25-34) 11/30/18 22:54 MCHC 31.3 g/dL (32-36) L 11/30/18 22:54 RDW Std Deviation 59.7 fL (36.4-46.3) H 11/30/18 22:54 RDW Coeff of Alfonso 17.7 % (11.5-14.5) H 11/30/18 22:54 Plt Count 235 K/uL (130-400) 11/30/18 22:54 MPV 9.4 fL (7.4-10.4) 11/30/18 22:54 Immature Gran % (Auto) 0.4 % 11/30/18 22:54 Neut % (Auto) 86.1 % 11/30/18 22:54 Lymph % (Auto) 5.7 % 11/30/18 22:54 [place] % (Auto) 7.0 % 11/30/18 22:54 Eos % (Auto) 0.7 % 11/30/18 22:54 Baso % (Auto) 0.1 % 11/30/18 22:54 Immature Gran # (Auto) 0.09 K/uL (0.00-0.02) H 11/30/18 22:54 Neut # (Auto) 19.62 K/uL (1.4-6.5) H 11/30/18 22:54 Lymph # (Auto) 1.29 K/uL (1.2-3.4) 11/30/18 22:54 [place] # (Auto) 1.60 K/uL (0.11-0.59) H 11/30/18 22:54 Eos # (Auto) 0.16 K/uL (0-0.5) 11/30/18 22:54 Baso # (Auto) 0.02 K/uL (0-0.2) 11/30/18 22:54 PT 10.8 Seconds (9.0-12.0) 11/30/18 22:54 INR 1.1 (0.9-1.1) 11/30/18 22:54 APTT 33.8 Seconds (21.0-31.0) H 11/30/18 22:54 PTT Ratio 1.3 11/30/18 22:54 VBG pH 7.39 (7.36-7.41) 11/30/18 22:54 VBG pCO2 57 mmHg (38-50) H 11/30/18 22:54 VBG pO2 38 mmHg 11/30/18 22:54 VBG HCO3 33 mmol/L 11/30/18 22:54 VBG O2 Saturation 71.8 % 11/30/18 22:54 VBG Base Excess 6.4 mEq/L 11/30/18 22:54 Barometric Pressure 736.2 mm/Hg 11/30/18 22:54 Sodium 137 mmol/L (136-145) 11/30/18 22:54 Potassium 3.9 mmol/L (3.5-5.1) 11/30/18 22:54 Chloride 98 mmol/L (98-107) 11/30/18 22:54 Carbon Dioxide 31 mmol/L (21-32) 11/30/18 22:54 Anion Gap 8.0 (3-11) 11/30/18 22:54 BUN 39 mg/dl (7-18) H 11/30/18 22:54 Creatinine 1.72 mg/dl (0.6-1.4) H 11/30/18 22:54 Est Cr Clr Drug Dosing 52.6 ml/min 11/30/18 22:54 Est GFR ( Amer) 45.4 11/30/18 22:54 Est GFR (Non-Af Amer) 39.1 11/30/18 22:54 BUN/Creatinine Ratio 22.6 (10-20) H 11/30/18 22:54 Glucose 127 mg/dl (70-99) H 11/30/18 22:54 Calcium 9.1 mg/dl (8.5-10.1) 11/30/18 22:54 Magnesium 2.1 mg/dl (1.8-2.4) 11/30/18 22:54 Total Bilirubin 0.9 mg/dl (0.2-1) 11/30/18 22:54 AST 20 U/L (15-37) 11/30/18 22:54 ALT 22 U/L (12-78) 11/30/18 22:54 Alkaline Phosphatase 99 U/L (45-117) 11/30/18 22:54 Total Creatine Kinase 89 U/L (39-308) 11/30/18 22:54 CK-MB (CK-2) 5.8 ng/ml (0.5-3.6) H 11/30/18 22:54 CK/CKMB % Calc 6.5 (0-3.0) H 11/30/18 22:54 Troponin I 1.570 ng/ml (0-0.045) H* 11/30/18 22:54 Total Protein 7.6 gm/dl (6.4-8.2) 11/30/18 22:54 Albumin 3.3 gm/dl (3.4-5.0) L 11/30/18 22:54 Globulin 4.3 gm/dl (2.5-4.0) H 11/30/18 22:54 Albumin/Globulin Ratio 0.8 (0.9-2) L 11/30/18 22:54 UAWBC esterase positive, epithelial cells Diagnostic Findings CT chest initial read: No obvious occlusive embolus within the pulmonary trunk or main pulmonary arteries. Cardiomegaly. Multivessel coronary artery calcifications. Small right and moderate left pleural effusion. Atelectasis ectasia of ascending aorta 3.5 cm EKG as per my interpretation: Rate 105, sinus tachycardia, ST depression lateral leads
[2018-12-01 01:47] LABS: Troponin I 1.45 ng/ml (0-0.045)
[2018-12-01] MEDS ORDERED: clonazePAM 1 MG TAB PO PRN (01:59)
[2018-12-01] MEDS ORDERED: NITROGLYCERIN SL 0.4 MG/TAB TAB SL PRN (01:59)
[2018-12-01] MEDS ORDERED: ACETAMINOPHEN 325 MG TAB PO PRN (01:59)
[2018-12-01] MEDS ORDERED: GLUCAGON FOR INJ 1 MG VIAL SQ PRN (01:59)
[2018-12-01] MEDS ORDERED: XOPENEX/ATROVENT 1.25mg/0.5MG NEB COMBO NEB PRN (01:59)
[2018-12-01] MEDS ORDERED: GLUCOSE 40% GEL 15 GM TUBE PO PRN (01:59)
[2018-12-01] MEDS ORDERED: CARBOHYDRATES FOR HYPOGLYCEMIA PO PRN (01:59)
[2018-12-01] MEDS ORDERED: GLUCOSE 10 TABS/TUBE PO PRN (01:59)
[2018-12-01] MEDS ORDERED: DEXTROSE 50% 50 ML SYRINGE IV PRN (01:59)
[2018-12-01] MEDS ORDERED: HYDROmorphone INJ 0.5 MG/0.5 ML SYR IV PRN (02:02)
[2018-12-01] MEDS ORDERED: TRAMADOL HCL 50 MG TABLET PO PRN (02:02)
[2018-12-01] MEDS ORDERED: METOPROLOL TARTRATE 50 MG TAB PO SCH ×2 (03:00→09:00)
[2018-12-01 03:44] LABS: Appearance Urine Turbid (Clear); Bacteria Urine Automated 2+ (Negative); Bilirubin Urine Negative (Negative); Blood Urine 3+ (Negative); Color Urine Orange; Epithelial Cell Urine Auto >30 /lpf (0-5); Glucose Urine UA Negative (Negative); Ketones Urine Negative (Negative); Leukocyte Esterase Urine 3+ (Negative); Nitrite Urine Negative (Negative); Protein Urine 1+ (Negative); RBC Urine Automated >30 /hpf (0-4); Specific Gravity Urine 1.015 (1.000-1.030); Urobilinogen Urine Negative (Negative); WBC Urine Automated >30 /hpf (0-5); pH Urine 6.5 (4.5-7.5)
[2018-12-01] MEDS ORDERED: CEFEPIME 2,000 MG in SYRINGE 7.5 ML IV STA (03:52)
[2018-12-01 04:02] LABS: Basophils # (auto) 0.02 K/uL (0-0.2); Basophils % (auto) 0.1 %; Eosinophils # (auto) 0.13 K/uL (0-0.5); Eosinophils % (auto) 0.6 %; Hematocrit (blood only) 41.7 % (42-52); Hemoglobin 13.1 g/dL (14.0-18.0); Immature Granulocytes # (auto) 0.09 K/uL (0.00-0.02); Immature Granulocytes % (auto) 0.4 %; Lymphocytes # (auto) 1.13 K/uL (1.2-3.4); Lymphocytes % (auto) 5.6 %; Mean Corpuscular Hgb Conc 31.4 g/dL (32-36); Mean Corpuscular Volume 90.7 fL (80-100); Monocytes # (auto) 1.56 K/uL (0.11-0.59); Monocytes % (auto) 7.7 %; Neutrophils # (auto) 17.37 K/uL (1.4-6.5); Neutrophils % (auto) 85.6 %; Platelet Count 217 K/uL (130-400); RDW Coefficient of Variation 17.9 % (11.5-14.5); RDW Standard Deviation 59.7 fL (36.4-46.3)
[2018-12-01 04:13] LABS: Partial Thromboplastin Ratio 1.3; Partial Thromboplastin Time 32.9 Seconds (21.0-31.0)
[2018-12-01 04:19] LABS: BUN Creatinine Ratio 23.1 (10-20); Calcium 9.2 mg/dl (8.5-10.1); Est GFR (African American) 50.3; Est GFR (Non-African American) 43.4; Potassium 3.8 mmol/L (3.5-5.1)
[2018-12-01 04:27] LABS: Troponin I 1.38 ng/ml (0-0.045)
[2018-12-01] MEDS ORDERED: INSULIN ASPART 100 UNITS/ML 3 ML PEN SC SCH (06:00)
[2018-12-01] MEDS: HEPARIN SOD 5,000 UNIT/0.5 ML VIAL SQ SCH ×3 (06:04→21:12)
--- NOTE | 2018-12-01 06:38 | XRay Report ---
XR chest 1V portable CLINICAL HISTORY: Dyspnea COMPARISON STUDY: 08/26/2017 FINDINGS: Moderate stable cardia megaly. Diaphragms are smooth. Trace pleural effusion left and to le sser extent right base perhaps slightly increased in the prior exam. Moderate prominence of pulmonary vasculature. IMPRESSION: Mild congestive heart failure. The above report was generated using voice recognition software. It may contain grammatical, syntax or spelling errors. Electronically signed by: Lalo Chambers M.D. 12/01/2018 6:35 AM
--- NOTE | 2018-12-01 06:40 | CT Scan Report ---
CT head/brain wo con CLINICAL HISTORY: 73 years-old Male with weakness. Acute weakness TECHNIQUE: Multiple axial CT images of the head were obtained without contrast. A dose lowering tech nique was utilized adhering to the principles of ALARA. CT DOSE: 537.48 mGy.cm COMPARISON: CT head 02/05/2015. FINDINGS: No acute intracranial hemorrhage, midline shift, intracranial mass, hydrocephalus, territorial ischem ia or abnormal extra-axial collection. Age-related involutional changes. Patchy white matter hypodens ities are suggestive of chronic microvascular ischemic changes. Cerebral vascular calcifications are noted. Remote lacunar infarction about the left lentiform nucleus. The calvarium is intact. The paranasal sinuses, mastoid air cells, and middle ear cavities are clear . IMPRESSION: No acute intracranial abnormality. The above report was generated using voice recognition software. It may contain grammatical, syntax o r spelling errors. Electronically signed by: Lazaro Ortega M.D. 12/01/2018 6:38 AM
--- NOTE | 2018-12-01 07:01 | CT Scan Report ---
CT angio chest PE protocol CT DOSE: 841.15 mGy.cm HISTORY: 73 years-old Male with PE. Acute shortness of breath with weakness TECHNIQUE: Multiple CTA images of the chest were obtained after the intravenous administration of 116 ml Optiray 320. Coronal and sagittal MIPS were obtained from the axial data set and were submitted for review. All measurements were obtained according to NASCET criteria. A dose lowering technique w as utilized adhering to the principles of ALARA. COMPARISON: Chest radiograph of same day, CT chest 03/21/2017. FINDINGS: CTA: Heart is mildly enlarged. No pericardial effusion. Coronary arterial calcifications are noted. Ascend ing thoracic aorta measures 3.6 x 3.7 cm. No thoracic aortic aneurysm or dissection. Patency of the i rakesh great vessels. The pulmonary arterial tree is opacified to level of the proximal segmental bran ches. The distal lobar, segmental and subsegmental branches are not well seen secondary to contrast b olus timing. A majority of the bolus is still present within the SVC. No central focal filling defect s identified to suggest pulmonary thromboembolic disease. CT CHEST: Heterogeneous appearance of the imaged thyroid. Prominent and enlarged paratracheal lymph nodes are r edemonstrated with a right tracheoesophageal recess lymph node measuring up to 1.9 x 1.2 cm on image 22 series 4, previously measuring 1.8 x 1.1 cm. Calcified mediastinal and hilar lymph nodes compatibl e with prior granulomatous disease. No new or progressive adenopathy identified. Small right and smal l to moderate left pleural effusions. No pneumothorax. Dependent subsegmental bibasilar consolidation suggests atelectasis. Linear pleural-based consolidative opacities of the upper lobes suggest areas of scarring/atelectasis. Bilateral areas of mosaic attenuation are present, notably within the right upper and middle lobes. No overt pulmonary edema. Scattered calcified granulomata about the lung pare nchyma. Central airways appear patent. Splenomegaly. The visualized liver also appears enlarged. No acute process of the imaged upper abdome n. Bones appear to be intact. Degenerative changes of the shoulders and spine are noted. IMPRESSION: 1. Suboptimal evaluation of the pulmonary arterial tree secondary to contrast bolus timing. No centra l pulmonary emboli identified. 2. Cardiomegaly with coronary arterial calcifications. 3. Small right and [id number] left pleural effusions with bibasilar dependent consolidation kim ggestive of atelectasis. Bilateral mosaic attenuation suggestive of associated air trapping. 4. Prior granulomatous disease. 5. Hepatosplenomegaly. The above report was generated using voice recognition software. It may contain grammatical, syntax o r spelling errors. Electronically signed by: Lazaro Ortega M.D. 12/01/2018 6:59 AM
[2018-12-01] MEDS: INSULIN ASPART 100 UNITS/ML 3 ML PEN SC SCH ×4 (08:10→21:06)
[2018-12-01] MEDS: INSULIN DETEMIR FLEXPEN/FLEX TOUCH 100 UNITS/ML 3ML SC SCH ×2 (08:11→21:11)
[2018-12-01] MEDS: PARoxetine HCl 20 MG TAB PO SCH (08:12)
[2018-12-01] MEDS: POTASSIUM CHLORIDE 20 MEQ TABCR PO SCH (08:13)
[2018-12-01] MEDS: FERROUS SULFATE 325 MG TAB PO SCH ×2 (08:14→21:09)
[2018-12-01] MEDS: HydrALAZINE TAB 50 MG TAB PO SCH ×4 (08:14→21:10)
[2018-12-01] MEDS: ASPIRIN 81 MG ECTAB PO SCH (08:14)
[2018-12-01] MEDS: PANTOprazole 40 MG TAB PO SCH (08:14)
[2018-12-01] MEDS ORDERED: CEFEPIME CONSULT ACTIVE PRN (09:00)
--- NOTE | 2018-12-01 09:15 | Cardiology Consultation ---
Date of Consultation December 01, 2018 Assessment & Plan (1) Respiratory failure: Patient presents with gradual weakness and hypoxia evidence of probable right heart failure and mild volume overload. Findings in the setting of preserved ejection fraction by history. Troponins are elevated but flat Plan continue IV diuretics in hospital, change metoprolol to Toprol Blood cultures and evaluation of elevated white cell count still ongoing Echocardiogram ordered to assess LV function (2) Hypoxia: As above (3) Chronic right-sided congestive heart failure: Follow renal function with IV diuretics in hospital (4) Hypertensive heart disease with congestive heart failure and with combined systolic and diastolic dysfunction: Patient on multiple drug regimen for hypertension we will continue given use of chronic hydralazine will check for drug-induced lupus given complaints of generalized weakness mild anemia History of Present Illness Reason for Consultation: Chronic right heart failure Requesting Physician: Dr. Adilia Sue Attending Physician: Payam Sue MD History of Present Illness 73-year-old male complex past medical history which includes morbid obesity, chronic obstructive lung disease/sleep apnea O2 and CPAP dependent, long- standing hypertension with hypertensive heart disease past diastolic and right heart failure, chronic. Underlying medical problems include type 2 diabetes mellitus, chronic renal insufficiency, chronic anemia. Patient presents this admission noting gradually increasing fatigue and weakness abdominal bloating times 1 month. Date of admission patient attempted to stand from recliner to walker and slipped to the floor and was unable to rise on his own. He separately been referred for ER visit and hospitalization. He denies fevers chills sweats cough hoarseness wheeze or hemoptysis. Notes no tachypalpitations syncope or near syncope. He is uncertain of weight but feels abdominal bloating has increased despite recent increase in diuretic dosing. Notes no bleeding difficulties notes no melena hematochezia dysuria hematuria. Appetite's been fair. Patient's been able to sleep lying flat at night does use oxygen and CPAP supplementation. Denies headache or visual changes, notes no injury with fall. He does complain of dysuria in association with urinary catheter in place currently, hematuria observed in Fuller bag Recent evaluations include echocardiogram October 2018 demonstrating preserved ejection fraction, grade 2 diastolic dysfunction and no valvular disease. Last stress testing was performed in November 2016 was negative for ischemia Allergies Allergy/AdvReac Type Severity Reaction Status Date / Time minoxidil Allergy Intermediate RASH Verified 11/30/18 23:59 venlafaxine Allergy Intermediate HTN, SHAKEY Verified 11/30/18 23:59 amlodipine Allergy Unknown Unknown Verified 11/30/18 23:58 clonidine AdvReac Unknown INTOLERANT Verified 11/30/18 23:59 Home Medications Home Medications Medication Instructions Recorded Confirmed Type allopurinol 300 mg PO HS 11/30/18 11/30/18 History aspirin 81 mg PO QAM 11/30/18 11/30/18 History atorvastatin 20 mg PO HS 11/30/18 11/30/18 History clonazepam 1 mg PO BID PRN 11/30/18 11/30/18 History ferrous sulfate [iron] 325 mg PO BID 11/30/18 11/30/18 History glipizide 5 mg PO BID 11/30/18 11/30/18 History hydralazine 50 mg PO TID 11/30/18 11/30/18 History insulin detemir U-100 [Levemir 29 unit SUBCUT HS 11/30/18 11/30/18 History FlexTouch U-100 Insuln] lisinopril 20 mg PO QAM 11/30/18 11/30/18 History metoprolol tartrate 75 mg PO BID 11/30/18 11/30/18 History omeprazole 40 mg PO QAM 11/30/18 11/30/18 History paroxetine HCl 40 mg PO QAM 11/30/18 11/30/18 History potassium chloride [Klor-Con M20] 10 meq PO . LUNCHTIME 11/30/18 11/30/18 History potassium chloride [Klor-Con M20] 20 meq PO QAM 11/30/18 11/30/18 History torsemide 60 mg PO QAM 11/30/18 11/30/18 History trazodone 50 mg PO HS 11/30/18 11/30/18 History Patient History Medical History Renal cyst (Chronic) Obstructive sleep apnea on CPAP (Chronic) Gout (Chronic) Dyslipidemia (Chronic) Restless leg syndrome (Chronic) GI bleed (Resolved 03/14/14) Anxiety (Chronic) Depression (Chronic) Poorly-controlled hypertension (Acute) Tremor (Acute) Essential tremor (Chronic) Restrictive airway disease (Chronic) SOB (shortness of breath) Surgical History H/O colonoscopy with polypectomy (Resolved) "2012 - polyps, adenomatous" History of pericardiotomy (Resolved) S/P tonsillectomy and adenoidectomy (Chronic) H/O colonoscopy (Chronic) " 04/09/2014- adenomatous & TVA polyps, diverticulosis 04/29/2015- normal " H/O esophagogastroduodenoscopy (Chronic) " 03/15/2014- mild-mod inflammation " Family History Other Family history non-contributory Social History Current Living Situation: Spouse Feels Safe at Home: Yes Safety Concerns: Feels Safe At This Time Smoking Status: Never smoker Hx Alcohol Use: No Hx Substance Use: No Beliefs That Will Affect Care: None Preferred Language: Setswana Communication Ability: Effective Forestry Engineer Required: No Review of Systems As per HPI otherwise negative with full system review performed Physical Exam 2 Vital Signs (Past 24 Hours): Last Vital Signs Temp 36.8 C 12/01/18 07:18 Pulse 87 12/01/18 07:18 Resp 16 12/01/18 07:18 BP 141/69 H 12/01/18 07:18 Pulse Ox 95 12/01/18 07:18 Constitutional: + ill appearing and + obese; not in distress Eyes: PERRL, conjunctivae normal, anicteric sclerae ENMT: external ear and nose normal, oropharynx normal Neck: + short neck and + thick neck Thyroid: no thyromegaly Respiratory: Diminished breath sounds all lung parkinson a few scattered crackles basilar Cardiovascular: Rate/Rhythm: regular rate and regular rhythm Heart Sounds: normal S1 and normal S2; no gallop, no murmur and no cardiac rub Vessels: no carotid bruit Extremities: + pedal edema (1+ bilateral edema) Gastrointestinal (Abdomen): Obese soft, with moderate distention Skin: no rashes, warm and dry Neurologic: Alert answering questions appropriately Results & Data Laboratory Results Laboratory Results - last 24 hr 11/30/18 11/30/18 11/30/18 22:54 22:54 22:54 WBC 22.78 H RBC 4.75 Hgb 13.6 L Hct 43.4 MCV 91.4 MCH 28.6 MCHC 31.3 L RDW Std Deviation 59.7 H RDW Coeff of Alfonso 17.7 H Plt Count 235 MPV 9.4 Immature Gran % (Auto) 0.4 Neut % (Auto) 86.1 Lymph % (Auto) 5.7 [place] % (Auto) 7.0 Eos % (Auto) 0.7 Baso % (Auto) 0.1 Immature Gran # (Auto) 0.09 H Neut # (Auto) 19.62 H Lymph # (Auto) 1.29 [place] # (Auto) 1.60 H Eos # (Auto) 0.16 Baso # (Auto) 0.02 PT INR APTT PTT Ratio VBG pH 7.39 VBG pCO2 57 H VBG pO2 38 VBG HCO3 33 VBG O2 Saturation 71.8 VBG Base Excess 6.4 Barometric Pressure 736.2 Sodium 137 Potassium 3.9 Chloride 98 Carbon Dioxide 31 Anion Gap 8.0 BUN 39 H Creatinine 1.72 H Est Cr Clr Drug Dosing 52.6 Est GFR ( Amer) 45.4 Est GFR (Non-Af Amer) 39.1 BUN/Creatinine Ratio 22.6 H Glucose 127 H POC Glucose Lactate Calcium 9.1 Magnesium 2.1 Total Bilirubin 0.9 AST 20 ALT 22 Alkaline Phosphatase 99 Total Creatine Kinase 89 CK-MB (CK-2) 5.8 H CK/CKMB % Calc 6.5 H Troponin I 1.570 H* Total Protein 7.6 Albumin 3.3 L Globulin 4.3 H Albumin/Globulin Ratio 0.8 L Triglycerides Cholesterol LDL Cholesterol, Calc VLDL Cholesterol, Calc HDL Cholesterol Cholesterol/HDL Ratio Procalcitonin TSH Urine Color Urine Appearance Urine pH Ur Specific [place] Urine Protein Urine Glucose (UA) Urine Ketones Urine Blood Urine Nitrite Urine Bilirubin Urine Urobilinogen Ur Leukocyte Esterase Urine WBC (Auto) Urine RBC (Auto) U Hyaline Cast (Auto) U Epithel Cells (Auto) Urine Bacteria (Auto) 11/30/18 11/30/18 12/01/18 22:54 22:54 01:04 WBC RBC Hgb Hct MCV MCH MCHC RDW Std Deviation RDW Coeff of Alfonso Plt Count MPV Immature Gran % (Auto) Neut % (Auto) Lymph % (Auto) [place] % (Auto) Eos % (Auto) Baso % (Auto) Immature Gran # (Auto) Neut # (Auto) Lymph # (Auto) [place] # (Auto) Eos # (Auto) Baso # (Auto) PT 10.8 INR 1.1 APTT 33.8 H PTT Ratio 1.3 VBG pH VBG pCO2 VBG pO2 VBG HCO3 VBG O2 Saturation VBG Base Excess Barometric Pressure Sodium Potassium Chloride Carbon Dioxide Anion Gap BUN Creatinine Est Cr Clr Drug Dosing Est GFR ( Amer) Est GFR (Non-Af Amer) BUN/Creatinine Ratio Glucose POC Glucose Lactate Calcium Magnesium Total Bilirubin AST ALT Alkaline Phosphatase Total Creatine Kinase CK-MB (CK-2) CK/CKMB % Calc Troponin I 1.450 H* Total Protein Albumin Globulin Albumin/Globulin Ratio Triglycerides Cholesterol LDL Cholesterol, Calc VLDL Cholesterol, Calc HDL Cholesterol Cholesterol/HDL Ratio Procalcitonin 0.58 H TSH 2.100 Urine Color Urine Appearance Urine pH Ur Specific [place] Urine Protein Urine Glucose (UA) Urine Ketones Urine Blood Urine Nitrite Urine Bilirubin Urine Urobilinogen Ur Leukocyte Esterase Urine WBC (Auto) Urine RBC (Auto) U Hyaline Cast (Auto) U Epithel Cells (Auto) Urine Bacteria (Auto) 12/01/18 12/01/18 12/01/18 03:00 03:20 03:52 WBC 20.30 H RBC 4.60 L Hgb 13.1 L Hct 41.7 L MCV 90.7 MCH 28.5 MCHC 31.4 L RDW Std Deviation 59.7 H RDW Coeff of Alfonso 17.9 H Plt Count 217 MPV 9.0 Immature Gran % (Auto) 0.4 Neut % (Auto) 85.6 Lymph % (Auto) 5.6 [place] % (Auto) 7.7 Eos % (Auto) 0.6 Baso % (Auto) 0.1 Immature Gran # (Auto) 0.09 H Neut # (Auto) 17.37 H Lymph # (Auto) 1.13 L [place] # (Auto) 1.56 H Eos # (Auto) 0.13 Baso # (Auto) 0.02 PT INR APTT PTT Ratio VBG pH VBG pCO2 VBG pO2 VBG HCO3 VBG O2 Saturation VBG Base Excess Barometric Pressure Sodium Potassium Chloride Carbon Dioxide Anion Gap BUN Creatinine Est Cr Clr Drug Dosing Est GFR ( Amer) Est GFR (Non-Af Amer) BUN/Creatinine Ratio Glucose POC Glucose 146 H Lactate Calcium Magnesium Total Bilirubin AST ALT Alkaline Phosphatase Total Creatine Kinase CK-MB (CK-2) CK/CKMB % Calc Troponin I Total Protein Albumin Globulin Albumin/Globulin Ratio Triglycerides Cholesterol LDL Cholesterol, Calc VLDL Cholesterol, Calc HDL Cholesterol Cholesterol/HDL Ratio Procalcitonin TSH Urine Color [place] Urine Appearance Turbid H Urine pH 6.5 Ur Specific [place] 1.015 Urine Protein 1+ H Urine Glucose (UA) Negative Urine Ketones Negative Urine Blood 3+ H Urine Nitrite Negative Urine Bilirubin Negative Urine Urobilinogen Negative Ur Leukocyte Esterase 3+ H Urine WBC (Auto) >30 H Urine RBC (Auto) >30 H U Hyaline Cast (Auto) 1-5 U Epithel Cells (Auto) >30 H Urine Bacteria (Auto) 2+ H 12/01/18 12/01/18 12/01/18 03:52 03:52 03:52 WBC RBC Hgb Hct MCV MCH MCHC RDW Std Deviation RDW Coeff of Alfonso Plt Count MPV Immature Gran % (Auto) Neut % (Auto) Lymph % (Auto) [place] % (Auto) Eos % (Auto) Baso % (Auto) Immature Gran # (Auto) Neut # (Auto) Lymph # (Auto) [place] # (Auto) Eos # (Auto) Baso # (Auto) PT INR APTT 32.9 H PTT Ratio 1.3 VBG pH VBG pCO2 VBG pO2 VBG HCO3 VBG O2 Saturation VBG Base Excess Barometric Pressure Sodium 137 Potassium 3.8 Chloride 99 Carbon Dioxide 34 H Anion Gap 4.0 BUN 37 H Creatinine 1.58 H Est Cr Clr Drug Dosing 57.0 Est GFR ( Amer) 50.3 Est GFR (Non-Af Amer) 43.4 BUN/Creatinine Ratio 23.1 H Glucose 142 H POC Glucose Lactate 1.2 Calcium 9.2 Magnesium Total Bilirubin AST ALT Alkaline Phosphatase Total Creatine Kinase CK-MB (CK-2) CK/CKMB % Calc Troponin I 1.380 H* Total Protein Albumin Globulin Albumin/Globulin Ratio Triglycerides 156 H Cholesterol 143 LDL Cholesterol, Calc 73 VLDL Cholesterol, Calc 31 HDL Cholesterol 39 Cholesterol/HDL Ratio 4 Procalcitonin TSH Urine Color Urine Appearance Urine pH Ur Specific [place] Urine Protein Urine Glucose (UA) Urine Ketones Urine Blood Urine Nitrite Urine Bilirubin Urine Urobilinogen Ur Leukocyte Esterase Urine WBC (Auto) Urine RBC (Auto) U Hyaline Cast (Auto) U Epithel Cells (Auto) Urine Bacteria (Auto) 12/01/18 07:30 WBC RBC Hgb Hct MCV MCH MCHC RDW Std Deviation RDW Coeff of Alfonso Plt Count MPV Immature Gran % (Auto) Neut % (Auto) Lymph % (Auto) [place] % (Auto) Eos % (Auto) Baso % (Auto) Immature Gran # (Auto) Neut # (Auto) Lymph # (Auto) [place] # (Auto) Eos # (Auto) Baso # (Auto) PT INR APTT PTT Ratio VBG pH VBG pCO2 VBG pO2 VBG HCO3 VBG O2 Saturation VBG Base Excess Barometric Pressure Sodium Potassium Chloride Carbon Dioxide Anion Gap BUN Creatinine Est Cr Clr Drug Dosing Est GFR ( Amer) Est GFR (Non-Af Amer) BUN/Creatinine Ratio Glucose POC Glucose 133 H Lactate Calcium Magnesium Total Bilirubin AST ALT Alkaline Phosphatase Total Creatine Kinase CK-MB (CK-2) CK/CKMB % Calc Troponin I Total Protein Albumin Globulin Albumin/Globulin Ratio Triglycerides Cholesterol LDL Cholesterol, Calc VLDL Cholesterol, Calc HDL Cholesterol Cholesterol/HDL Ratio Procalcitonin TSH Urine Color Urine Appearance Urine pH Ur Specific [place] Urine Protein Urine Glucose (UA) Urine Ketones Urine Blood Urine Nitrite Urine Bilirubin Urine Urobilinogen Ur Leukocyte Esterase Urine WBC (Auto) Urine RBC (Auto) U Hyaline Cast (Auto) U Epithel Cells (Auto) Urine Bacteria (Auto) ECG Additional Comments: 30-NOV-2018 22:48:15 [facility] Sinus tachycardia T wave abnormality, consider lateral ischemia Abnormal ECG When compared with ECG of 19-MAR-2017 07:47, T wave inversion now evident in Lateral leads
--- NOTE | 2018-12-01 14:14 | Hospitalist Progress Note ---
Date of Service December 01, 2018 Assessment & Plan (1) Respiratory failure: Hypoxia Acute on chronic diastolic heart failure Present on admission with worsening SOB and weakness CXR showed mild congestive heart failure. CTA chest showed suboptimal evaluation of the pulmonary arterial tree secondary to contrast bolus timing. No central pulmonary emboli identified. Received IV lasix 60mg IV today Continue oxygen supplement Monitor I/O Cardiology on board Monitor electrolytes (2) Weakness: Mostly due to acute illness Marker sent for SLE since pt has been on hydralazine PT/OT evval Fall precaution (3) Elevated troponin: Mostly related to respiratory failure with hypoxia Troponin trending down Denies any chest pain Continue aspirin and metoprolol ECHO showed moderate concentric LVH Left ventricle wall motion is normal Grade 2 diastolic dysfunction with EF 65-70% Continue monitor in tele (4) Abnormal urinalysis: UA positive for leukocytes and bacteria Elevated procalcitonin and WBC On IV cefepime Blood cx and urine cx pending Monitor CBC (5) Obstructive sleep apnea on CPAP: continue Cpap (6) Hypertension: BP improves Continue metoprolol and hydralazine Continue monitor BP (7) Diabetes: Most recent HBA1C 5.8 on 09/18 Well controlled Continue lantus with novolog sliding scale Continue monitor BS DVT px on heparin subq CODE STATUS FULL CODE Disposition Continue monitor in Tele Subjective Pt was seen and examined Lying in bed with at bedside Pt said that he feels very weak he said that his breathing is slightly improves Denies any chest pain, palpitation, dizziness and SOB Physical Exam 2 Vital Signs (Past 24 Hours): Last Vital Signs Temp 36.8 C 12/01/18 11:08 Pulse 86 12/01/18 11:08 Resp 20 12/01/18 11:08 BP 143/81 H 12/01/18 11:08 Pulse Ox 96 12/01/18 11:08 Physical Exam: General- No acute distress Head- atraumatic Eyes- PERRL, EOMI, ENT- oropharynx clear Neck- supple, no JVD Lungs- diminished breath sound Heart- regular rhythm Abdomen- normal bowel sounds, soft, nontender Extremities- no calf tenderness, +edema Neuro- alert, oriented, PERRL, EOMI; no facial palsy; no dysarthria Skin- warm & dry
[2018-12-01] MEDS ORDERED: FUROSEMIDE 40 MG/4 ML VIAL IV ONE (17:00)
[2018-12-01] MEDS: ALLOPURINOL 300 MG TAB PO SCH (21:07)
[2018-12-01] MEDS: ATORVASTATIN 20 MG TAB PO SCH (21:07)
[2018-12-01] MEDS: METOPROLOL SUCC 25MG EXT REL TAB PO SCH (21:07)
[2018-12-01] MEDS: TRAZODONE HCL 50 MG TAB PO SCH (21:10)
[2018-12-02] MEDS: CEFEPIME 2,000 MG in SYRINGE 7.5 ML IV SCH (04:04)
[2018-12-02] MEDS: HEPARIN SOD 5,000 UNIT/0.5 ML VIAL SQ SCH ×3 (05:37→20:35)
[2018-12-02 08:02] LABS: Est GFR (African American) 31.9; Est GFR (Non-African American) 27.5
[2018-12-02] MEDS: INSULIN ASPART 100 UNITS/ML 3 ML PEN SC SCH ×4 (08:12→20:34)
[2018-12-02] MEDS: ASPIRIN 81 MG ECTAB PO SCH (08:13)
[2018-12-02] MEDS: FERROUS SULFATE 325 MG TAB PO SCH ×2 (08:13→20:05)
[2018-12-02] MEDS: HydrALAZINE TAB 50 MG TAB PO SCH ×3 (08:13→20:04)
[2018-12-02] MEDS: POTASSIUM CHLORIDE 20 MEQ TABCR PO SCH (08:14)
[2018-12-02] MEDS: INSULIN DETEMIR FLEXPEN/FLEX TOUCH 100 UNITS/ML 3ML SC SCH ×2 (08:14→20:35)
[2018-12-02] MEDS: PARoxetine HCl 20 MG TAB PO SCH (08:15)
[2018-12-02] MEDS: PANTOprazole 40 MG TAB PO SCH (08:15)
[2018-12-02] MEDS: METOPROLOL SUCC 25MG EXT REL TAB PO SCH (08:16)
[2018-12-02 09:00] LABS: Hematocrit (blood only) 40.1 % (42-52); Hemoglobin 12.2 g/dL (14.0-18.0); Mean Corpuscular Hgb Conc 30.4 g/dL (32-36); Mean Corpuscular Volume 92.2 fL (80-100); Mean Platelet Volume 9.7 fL (7.4-10.4); Platelet Count 254 K/uL (130-400); RDW Coefficient of Variation 17.8 % (11.5-14.5); RDW Standard Deviation 60.4 fL (36.4-46.3); Red Blood Count 4.35 M/uL (4.7-6.1); White Blood Count 18.94 K/uL (4.8-10.8)
--- NOTE | 2018-12-02 10:37 | Cardiology Progress Note ---
Date of Service December 02, 2018 Assessment & Plan (1) Respiratory failure: Patient presents with gradual weakness and hypoxia evidence of probable right heart failure and mild volume overload. Findings in the setting of preserved ejection fraction by history. Troponins are elevated but flat Plan: Echocardiogram demonstrates hyperdynamic LV function without wall motion abnormality greater than 70%. Renal insufficiency is worsened after single dose of IV furosemide. Will hold. Increase Toprol to 100 mg twice per day for rate and rhythm control. Treat underlying urinary tract infection. Continue oxygen supplementation and CPAP chronic hypoxia/COPD (2) Hypoxia: As above (3) Chronic right-sided congestive heart failure: Multifactorial (4) Hypertensive heart disease with congestive heart failure and with combined systolic and diastolic dysfunction: Patient on multiple drug regimen for hypertension we will continue given use of chronic hydralazine will check for drug-induced lupus given complaints of generalized weakness mild anemia Physical Exam 2 Vital Signs (Past 24 Hours): Last Vital Signs Temp 36.6 C 12/02/18 06:27 Pulse 89 12/02/18 06:27 Resp 24 12/02/18 06:27 BP 129/72 12/02/18 06:27 Pulse Ox 96 12/02/18 06:27 Constitutional: + ill appearing and + obese; not in distress Eyes: PERRL, conjunctivae normal, anicteric sclerae ENMT: external ear and nose normal, oropharynx normal Neck: + short neck and + thick neck Thyroid: no thyromegaly Cardiovascular: Rate/Rhythm: regular rate and regular rhythm Heart Sounds: normal S1 and normal S2; no gallop, no murmur and no cardiac rub Vessels: no carotid bruit Extremities: + pedal edema (1+ bilateral edema) Skin: no rashes, warm and dry Results & Data Laboratory Results Laboratory Results - last 24 hr 12/01/18 12/01/18 12/01/18 11:04 15:58 20:13 WBC RBC Hgb Hct MCV MCH MCHC RDW Std Deviation RDW Coeff of Alfonso Plt Count MPV Potassium Creatinine Est Cr Clr Drug Dosing Est GFR ( Amer) Est GFR (Non-Af Amer) POC Glucose 155 H 136 H 140 H 12/02/18 12/02/18 12/02/18 06:56 06:56 06:56 WBC 18.94 H RBC 4.35 L Hgb 12.2 L Hct 40.1 L MCV 92.2 MCH 28.0 MCHC 30.4 L RDW Std Deviation 60.4 H RDW Coeff of Alfonso 17.8 H Plt Count 254 MPV 9.7 Potassium Cancelled Creatinine 2.30 H D Est Cr Clr Drug Dosing 39.0 Est GFR ( Amer) 31.9 Est GFR (Non-Af Amer) 27.5 POC Glucose 12/02/18 12/02/18 07:17 09:51 WBC RBC Hgb Hct MCV MCH MCHC RDW Std Deviation RDW Coeff of Alfonso Plt Count MPV Potassium 4.2 Creatinine Est Cr Clr Drug Dosing Est GFR ( Amer) Est GFR (Non-Af Amer) POC Glucose 154 H
[2018-12-02] MEDS ORDERED: METOPROLOL SUCC 25MG EXT REL TAB PO ONE (10:38)
--- NOTE | 2018-12-02 10:53 | Hospitalist Progress Note ---
Date of Service December 02, 2018 Assessment & Plan (1) Respiratory failure: Hypoxia Acute on chronic diastolic heart failure Present on admission with worsening SOB and weakness CXR showed mild congestive heart failure. CTA chest showed suboptimal evaluation of the pulmonary arterial tree secondary to contrast bolus timing. No central pulmonary emboli identified. Will hold lasix today due to worsening creatinine Continue oxygen supplement Monitor I/O Cardiology on board Monitor electrolytes (2) UTI (urinary tract infection): UA positive for leukocytes and bacteria Elevated procalcitonin and WBC Urine cx grew Ecoli Continue IV cefepime Blood cx pending Monitor CBC (3) Weakness: Mostly due to acute illness Marker sent for SLE since pt has been on hydralazine PT/OT evval Fall precaution (4) Acute renal failure superimposed on stage 3 chronic kidney disease: Creatinine 1.7 on admission Creatinine worsening today to 2.3 Will hold diuretic for today Avoid nephrotoxic agents (5) Elevated troponin: Demand ischemia mostly related to respiratory failure with hypoxia/ elevated creatinine Troponin trending down Denies any chest pain Continue aspirin and metoprolol ECHO showed moderate concentric LVH Left ventricle wall motion is normal Grade 2 diastolic dysfunction with EF 65-70% Continue aspirin, statin and metoprolol Continue monitor in tele (6) Obstructive sleep apnea on CPAP: On Cpap Ok to use own cpap (7) Hypertension: BP improves Continue hydralazine Metoprolol increased to 100mg BID Continue monitor BP (8) Diabetes: Most recent HBA1C 5.8 on 09/18 Well controlled Continue lantus with novolog sliding scale Continue monitor BS DVT px on heparin subq CODE STATUS FULL CODE Disposition Continue monitor in Tele Subjective Pt was seen and examined Lying in bed with no distress Pt said that he slept well last night Denies any chest pain, palpitation, dizziness and SOB Physical Exam 2 Vital Signs (Past 24 Hours): Last Vital Signs Temp 36.6 C 12/02/18 06:27 Pulse 89 12/02/18 06:27 Resp 24 12/02/18 06:27 BP 129/72 12/02/18 06:27 Pulse Ox 96 12/02/18 06:27 Physical Exam: General- No acute distress Head- atraumatic Eyes- PERRL, EOMI, ENT- oropharynx clear Neck- supple, no JVD Lungs- diminished breath sound Heart- regular rhythm Abdomen- normal bowel sounds, soft, nontender Extremities- no calf tenderness, +edema Neuro- alert, oriented, PERRL, EOMI; no facial palsy; no dysarthria Skin- warm & dry
[2018-12-02] MEDS: TRAZODONE HCL 50 MG TAB PO SCH (20:04)
[2018-12-02] MEDS: ALLOPURINOL 300 MG TAB PO SCH (20:05)
[2018-12-02] MEDS: METOPROLOL SUCC 50MG EXT REL TAB PO SCH (20:05)
[2018-12-02] MEDS: ATORVASTATIN 20 MG TAB PO SCH (20:05)
[2018-12-03] MEDS: CEFEPIME 2,000 MG in SYRINGE 7.5 ML IV SCH (03:49)
[2018-12-03] MEDS: HEPARIN SOD 5,000 UNIT/0.5 ML VIAL SQ SCH ×3 (05:18→20:31)
[2018-12-03] MEDS: LEVALBUTEROL 1.25MG/0.5ML NEB INH PRN ×2 (05:30→13:10)
[2018-12-03] MEDS: IPRATROPIUM BROMIDE NEB SOLN 0.02% 2.5 ML VIAL INH PRN ×2 (05:32→13:10)
[2018-12-03 06:55] LABS: Hematocrit (blood only) 41.3 % (42-52); Mean Corpuscular Hgb Conc 31.5 g/dL (32-36); Mean Corpuscular Volume 91.8 fL (80-100); Mean Platelet Volume 9.2 fL (7.4-10.4); Platelet Count 267 K/uL (130-400); RDW Coefficient of Variation 17.8 % (11.5-14.5); RDW Standard Deviation 60.2 fL (36.4-46.3); White Blood Count 14.84 K/uL (4.8-10.8)
[2018-12-03 07:25] LABS: BUN Creatinine Ratio 29.8 (10-20); Calcium 9.9 mg/dl (8.5-10.1); Creatinine Clr Calc Pharmacy 50.1 ml/min; Est GFR (African American) 44.1; Est GFR (Non-African American) 38.1; Potassium 4.2 mmol/L (3.5-5.1)
[2018-12-03] MEDS: INSULIN DETEMIR FLEXPEN/FLEX TOUCH 100 UNITS/ML 3ML SC SCH ×2 (08:58→20:31)
[2018-12-03] MEDS: INSULIN ASPART 100 UNITS/ML 3 ML PEN SC SCH ×4 (08:58→20:13)
[2018-12-03] MEDS: HydrALAZINE TAB 50 MG TAB PO SCH ×3 (09:04→20:12)
[2018-12-03] MEDS: ASPIRIN 81 MG ECTAB PO SCH (09:04)
[2018-12-03] MEDS: POTASSIUM CHLORIDE 20 MEQ TABCR PO SCH (09:05)
[2018-12-03] MEDS: FERROUS SULFATE 325 MG TAB PO SCH ×2 (09:05→20:12)
[2018-12-03] MEDS: PANTOprazole 40 MG TAB PO SCH (09:06)
[2018-12-03] MEDS: PARoxetine HCl 20 MG TAB PO SCH (09:06)
[2018-12-03] MEDS: METOPROLOL SUCC 50MG EXT REL TAB PO SCH ×2 (09:06→20:12)
--- NOTE | 2018-12-03 11:24 | Cardiology Progress Note ---
Date of Service December 03, 2018 Assessment & Plan (1) Respiratory failure: Patient presents with gradual weakness and hypoxia evidence of probable right heart failure and mild volume overload. Findings in the setting of preserved ejection fraction by history. Troponins are elevated but flat Plan: Echocardiogram demonstrates hyperdynamic LV function without wall motion abnormality greater than 70%. Recommend initiating CPAP at night as used at home Lisinopril held on admission due to elevated creatinine and blood pressures are trending upward we will add oral nitrates to her regimen. Resume oral torsemide today Recommend removed urinary cath (2) Hypoxia: As above (3) Chronic right-sided congestive heart failure: Multifactorial (4) Hypertensive cardiovascular disease: Plan as above would increase activities Subjective Notes gradual improvement only no acute complaints. No chest pains tachypalpitations. Complains of discomfort at Fuller catheter site Physical Exam 2 Vital Signs (Past 24 Hours): Last Vital Signs Temp 36.9 C 12/03/18 08:23 Pulse 86 12/03/18 08:23 Resp 16 12/03/18 08:23 BP 154/68 H 12/03/18 08:23 Pulse Ox 98 12/03/18 08:23 Constitutional: + ill appearing and + obese; not in distress Eyes: PERRL, conjunctivae normal, anicteric sclerae ENMT: external ear and nose normal, oropharynx normal Neck: + short neck and + thick neck Thyroid: no thyromegaly Cardiovascular: Rate/Rhythm: regular rate and regular rhythm Heart Sounds: normal S1 and normal S2; no gallop, no murmur and no cardiac rub Vessels: no carotid bruit Extremities: + pedal edema (1+ bilateral edema) Gastrointestinal (Abdomen): Moderately distended, less tense no palpable paraspinal megaly with normal active bowel sounds Skin: no rashes, warm and dry Results & Data Laboratory Results Laboratory Results - last 24 hr 12/02/18 12/02/18 12/02/18 11:35 16:26 20:20 WBC RBC Hgb Hct MCV MCH MCHC RDW Std Deviation RDW Coeff of Alfonso Plt Count MPV Sodium Potassium Chloride Carbon Dioxide Anion Gap BUN Creatinine Est Cr Clr Drug Dosing Est GFR ( Amer) Est GFR (Non-Af Amer) BUN/Creatinine Ratio Glucose POC Glucose 155 H 130 H 181 H Calcium 12/03/18 12/03/18 12/03/18 06:33 06:33 07:37 WBC 14.84 H RBC 4.50 L Hgb 13.0 L Hct 41.3 L MCV 91.8 MCH 28.9 MCHC 31.5 L RDW Std Deviation 60.2 H RDW Coeff of Alfonso 17.8 H Plt Count 267 MPV 9.2 Sodium 138 Potassium 4.2 Chloride 102 Carbon Dioxide 32 Anion Gap 4.0 BUN 52 H Creatinine 1.76 H D Est Cr Clr Drug Dosing 50.1 Est GFR ( Amer) 44.1 Est GFR (Non-Af Amer) 38.1 BUN/Creatinine Ratio 29.8 H Glucose 164 H POC Glucose 189 H Calcium 9.9
[2018-12-03] MEDS: ISOSORBIDE DINITRATE 20 MG TAB PO SCH ×2 (12:20→17:57)
[2018-12-03] MEDS: TORSEMIDE 20 MG TAB PO SCH (12:20)
--- NOTE | 2018-12-03 16:36 | Hospitalist Progress Note ---
Date of Service December 03, 2018 Assessment & Plan (1) Respiratory failure: Hypoxia Acute on chronic diastolic heart failure Present on admission with worsening SOB and weakness CXR showed mild congestive heart failure. CTA chest showed suboptimal evaluation of the pulmonary arterial tree secondary to contrast bolus timing. No central pulmonary emboli identified. Continue oxygen supplement Monitor I/O Cardiology on board Torsemide 40mg starting today Monitor electrolytes (2) UTI (urinary tract infection): UA positive for leukocytes and bacteria Elevated procalcitonin and WBC Urine cx grew Ecoli IV cefepime changed to Keflex Blood cx no growth (3) Weakness: Mostly due to acute illness Marker sent for SLE since pt has been on hydralazine Fall precaution Continue PT/OT (4) Acute renal failure superimposed on stage 3 chronic kidney disease: Creatinine 1.7 on admission Creatinine improved from 2.3 to 1.7 Torsemide restarted at 40mg daily Avoid nephrotoxic agents Monitor BMP (5) Elevated troponin: Demand ischemia mostly related to respiratory failure with hypoxia/ elevated creatinine Troponin trending down Denies any chest pain Continue aspirin and metoprolol ECHO showed moderate concentric LVH Left ventricle wall motion is normal Grade 2 diastolic dysfunction with EF 65-70% Continue aspirin, statin and metoprolol Continue monitor in tele (6) Obstructive sleep apnea on CPAP: On Cpap Advised pt to use the Cpap tonight (7) Hypertension: BP elevated Continue hydralazine Metoprolol increased to 100mg BID Isosorbide dinitrate 20mg TID adding Continue monitor BP (8) Diabetes: Most recent HBA1C 5.8 on 09/18 Well controlled Continue lantus with novolog sliding scale Continue monitor BS DVT px on heparin subq CODE STATUS FULL CODE Disposition Continue monitor in Tele Subjective Pt was seen and examined Lying in bed with no distress He is very anxious to be discharged He continues to feel weak and was not able to stand at the side of the bed during therapy He wants to keep the finch cath for tonight He has not been using the Cpap He said that he does not like our Cpap mask and his will try to bring his mask to use while in the hospital Denies any chest pain, palpitation, dizziness and fever Physical Exam 2 Vital Signs (Past 24 Hours): Last Vital Signs Temp 37.2 C 12/03/18 15:17 Pulse 96 H 12/03/18 15:17 Resp 24 12/03/18 15:17 BP 165/82 H 12/03/18 15:17 Pulse Ox 93 12/03/18 14:06 Physical Exam: General- No acute distress, obese Head- atraumatic Eyes- PERRL, EOMI, ENT- oropharynx clear Neck- supple, no JVD Lungs- diminish breath sound Heart- regular rhythm Abdomen- normal bowel sounds, +distended Extremities- no calf tenderness, +edema Neuro- alert, oriented x 3; PERRL, EOMI; no facial palsy; no dysarthria Skin- warm & dry
[2018-12-03] MEDS: TRAZODONE HCL 50 MG TAB PO SCH (20:12)
[2018-12-03] MEDS: ATORVASTATIN 20 MG TAB PO SCH (20:12)
[2018-12-03] MEDS: ALLOPURINOL 300 MG TAB PO SCH (20:12)
[2018-12-03] MEDS: cephALEXin 500 MG CAP PO SCH (20:12)
[2018-12-04] MEDS: LEVALBUTEROL 1.25MG/0.5ML NEB INH PRN (05:00)
[2018-12-04] MEDS: IPRATROPIUM BROMIDE NEB SOLN 0.02% 2.5 ML VIAL INH PRN (05:00)
[2018-12-04] MEDS: HEPARIN SOD 5,000 UNIT/0.5 ML VIAL SQ SCH ×3 (06:01→20:35)
[2018-12-04] MEDS: ISOSORBIDE DINITRATE 20 MG TAB PO SCH ×3 (06:01→16:39)
[2018-12-04 07:16] LABS: Creatinine Clr Calc Pharmacy 41.6 ml/min; Est GFR (African American) 35.6; Est GFR (Non-African American) 30.7
[2018-12-04 07:32] LABS: Hematocrit (blood only) 40.8 % (42-52); Hemoglobin 12.6 g/dL (14.0-18.0); Mean Corpuscular Hgb Conc 30.9 g/dL (32-36); Mean Corpuscular Volume 91.7 fL (80-100); Mean Platelet Volume 9.2 fL (7.4-10.4); Platelet Count 278 K/uL (130-400); RDW Coefficient of Variation 17.6 % (11.5-14.5); RDW Standard Deviation 59.8 fL (36.4-46.3); Red Blood Count 4.45 M/uL (4.7-6.1); White Blood Count 14.39 K/uL (4.8-10.8)
[2018-12-04] MEDS: INSULIN ASPART 100 UNITS/ML 3 ML PEN SC SCH ×4 (07:51→20:21)
[2018-12-04] MEDS: TORSEMIDE 20 MG TAB PO SCH (07:51)
[2018-12-04] MEDS: HydrALAZINE TAB 50 MG TAB PO SCH ×3 (07:51→20:19)
[2018-12-04] MEDS: POTASSIUM CHLORIDE 20 MEQ TABCR PO SCH (07:52)
[2018-12-04] MEDS: ASPIRIN 81 MG ECTAB PO SCH (07:52)
[2018-12-04] MEDS: FERROUS SULFATE 325 MG TAB PO SCH ×2 (07:52→20:20)
[2018-12-04] MEDS: cephALEXin 500 MG CAP PO SCH ×2 (07:52→20:20)
[2018-12-04] MEDS: INSULIN DETEMIR FLEXPEN/FLEX TOUCH 100 UNITS/ML 3ML SC SCH ×2 (07:53→20:35)
[2018-12-04] MEDS: PANTOprazole 40 MG TAB PO SCH (07:53)
[2018-12-04] MEDS: PARoxetine HCl 20 MG TAB PO SCH (07:53)
[2018-12-04] MEDS: METOPROLOL SUCC 50MG EXT REL TAB PO SCH ×2 (07:54→20:19)
--- NOTE | 2018-12-04 16:21 | Cardiology Progress Note ---
Date of Service December 04, 2018 Assessment & Plan (1) Respiratory failure: Patient presents with gradual weakness and hypoxia evidence of probable right heart failure and mild volume overload. Findings in the setting of preserved ejection fraction by history. Troponins are elevated but flat Plan: Echocardiogram demonstrates hyperdynamic LV function without wall motion abnormality greater than 70%. Continue to hold lisinopril continue oral torsemide nitrates added to regimen will gradually increase activities (2) Hypoxia: As above (3) Chronic right-sided congestive heart failure: Multifactorial (4) Hypertensive cardiovascular disease: Plan as above would increase activities Subjective Possible slight improvement but continues to note marked fatigue had difficulty transferring from bed to chair Physical Exam 2 Vital Signs (Past 24 Hours): Last Vital Signs Temp 36.6 C 12/04/18 15:12 Pulse 81 12/04/18 15:12 Resp 26 H 12/04/18 15:12 BP 166/75 H 12/04/18 15:12 Pulse Ox 95 12/04/18 15:12 Constitutional: + ill appearing and + obese; not in distress Eyes: PERRL, conjunctivae normal, anicteric sclerae ENMT: external ear and nose normal, oropharynx normal Neck: + short neck and + thick neck Thyroid: no thyromegaly Cardiovascular: Rate/Rhythm: regular rate and regular rhythm Heart Sounds: normal S1 and normal S2; no gallop, no murmur and no cardiac rub Vessels: no carotid bruit Extremities: + pedal edema (1+ bilateral edema) Skin: no rashes, warm and dry
--- NOTE | 2018-12-04 18:59 | Hospitalist Progress Note ---
Date of Service December 04, 2018 Assessment & Plan (1) Respiratory failure: Hypoxia Acute on chronic diastolic heart failure Present on admission with worsening SOB and weakness CXR showed mild congestive heart failure. CTA chest showed suboptimal evaluation of the pulmonary arterial tree secondary to contrast bolus timing. No central pulmonary emboli identified. Continue oxygen supplement Monitor I/O Lost 8 Kg Cardiology on board Continue Torsemide 40mg Monitor electrolytes (2) UTI (urinary tract infection): UA positive for leukocytes and bacteria Elevated procalcitonin and WBC Urine cx grew Ecoli IV cefepime changed to Keflex Continue Keflex daily Blood cx no growth (3) Weakness: Mostly due to acute illness Marker sent for SLE since pt has been on hydralazine Fall precaution Continue PT/OT (4) Acute renal failure superimposed on stage 3 chronic kidney disease: Creatinine 1.7 on admission Creatinine increased to 2.1 today Continue torsemide 40mg daily Avoid nephrotoxic agents Monitor BMP (5) Elevated troponin: Demand ischemia mostly related to respiratory failure with hypoxia/ elevated creatinine Troponin trending down Denies any chest pain Continue aspirin and metoprolol ECHO showed moderate concentric LVH Left ventricle wall motion is normal Grade 2 diastolic dysfunction with EF 65-70% Continue aspirin, statin and metoprolol Continue monitor in tele (6) Obstructive sleep apnea on CPAP: On Cpap Advised pt to use the Cpap tonight (7) Hypertension: BP elevated Continue hydralazine Metoprolol increased to 100mg BID Isosorbide dinitrate 20mg TID adding Continue monitor BP (8) Diabetes: Most recent HBA1C 5.8 on 09/18 Well controlled Continue lantus with novolog sliding scale Continue monitor BS DVT px on heparin subq CODE STATUS FULL CODE Disposition Continue monitor in Tele Subjective Pt was seen and examined Lying in bed with no distress Pt said that he feel Ok He would like to keep the ficnh for tonight Denies any complaint Physical Exam 2 Vital Signs (Past 24 Hours): Last Vital Signs Temp 36.6 C 12/04/18 15:12 Pulse 81 12/04/18 15:12 Resp 26 H 12/04/18 15:12 BP 166/75 H 12/04/18 15:12 Pulse Ox 95 12/04/18 15:12 Physical Exam: General- No acute distress, obese Head- atraumatic Eyes- PERRL, EOMI, ENT- oropharynx clear Neck- supple, no JVD Lungs- diminish breath sound Heart- regular rhythm Abdomen- normal bowel sounds, +distended Extremities- no calf tenderness, +edema Neuro- alert, oriented x 3; PERRL, EOMI; no facial palsy; no dysarthria Skin- warm & dry
[2018-12-04] MEDS: ALLOPURINOL 300 MG TAB PO SCH (20:19)
[2018-12-04] MEDS: ATORVASTATIN 20 MG TAB PO SCH (20:20)
[2018-12-04] MEDS: TRAZODONE HCL 50 MG TAB PO SCH (20:21)
[2018-12-05] MEDS: HEPARIN SOD 5,000 UNIT/0.5 ML VIAL SQ SCH ×3 (05:11→20:54)
[2018-12-05] MEDS: ISOSORBIDE DINITRATE 20 MG TAB PO SCH ×3 (05:11→17:30)
[2018-12-05 06:41] LABS: Hematocrit (blood only) 42.4 % (42-52); Hemoglobin 13.1 g/dL (14.0-18.0); Mean Corpuscular Hgb Conc 30.9 g/dL (32-36); Mean Corpuscular Volume 92.6 fL (80-100); Mean Platelet Volume 9.3 fL (7.4-10.4); Platelet Count 316 K/uL (130-400); RDW Coefficient of Variation 17.6 % (11.5-14.5); RDW Standard Deviation 59.3 fL (36.4-46.3); Red Blood Count 4.58 M/uL (4.7-6.1); White Blood Count 15.35 K/uL (4.8-10.8)
[2018-12-05 07:21] LABS: BUN Creatinine Ratio 34.4 (10-20); Calcium 9.8 mg/dl (8.5-10.1); Creatinine Clr Calc Pharmacy 39.5 ml/min; Est GFR (African American) 32.6; Est GFR (Non-African American) 28.1; Potassium 4.6 mmol/L (3.5-5.1)
[2018-12-05] MEDS: INSULIN ASPART 100 UNITS/ML 3 ML PEN SC SCH ×4 (07:48→20:54)
[2018-12-05] MEDS: PARoxetine HCl 20 MG TAB PO SCH (08:35)
[2018-12-05] MEDS: POTASSIUM CHLORIDE 20 MEQ TABCR PO SCH (08:35)
[2018-12-05] MEDS: ASPIRIN 81 MG ECTAB PO SCH (08:35)
[2018-12-05] MEDS: TORSEMIDE 20 MG TAB PO SCH (08:36)
[2018-12-05] MEDS: INSULIN DETEMIR FLEXPEN/FLEX TOUCH 100 UNITS/ML 3ML SC SCH ×2 (08:36→20:53)
[2018-12-05] MEDS: cephALEXin 500 MG CAP PO SCH ×2 (08:36→20:49)
[2018-12-05] MEDS: HydrALAZINE TAB 50 MG TAB PO SCH ×3 (08:36→20:55)
[2018-12-05] MEDS: FERROUS SULFATE 325 MG TAB PO SCH ×2 (08:36→20:49)
[2018-12-05] MEDS: PANTOprazole 40 MG TAB PO SCH (08:37)
[2018-12-05] MEDS: METOPROLOL SUCC 50MG EXT REL TAB PO SCH ×2 (08:37→20:50)
--- NOTE | 2018-12-05 14:24 | Cardiology Progress Note ---
Date of Service December 05, 2018 Assessment & Plan (1) Respiratory failure: Patient presents with gradual weakness and hypoxia evidence of probable right heart failure and mild volume overload. Findings in the setting of preserved ejection fraction by history. Troponins are elevated but flat Plan: Echocardiogram demonstrates hyperdynamic LV function without wall motion abnormality greater than 70%. Plan continue to hold lisinopril increase Isordil 40 3 times daily. Hold torsemide given rising creatinine (2) Hypoxia: As above (3) Chronic right-sided congestive heart failure: Multifactorial (4) Hypertensive cardiovascular disease: Plan as above would increase activities Subjective Feels better today sitting out of bed in chair no acute complaints. Creatinine has increased slightly has manifested diuresis since admission. Blood pressure still elevated Physical Exam 2 Vital Signs (Past 24 Hours): Last Vital Signs Temp 36.5 C 12/05/18 06:58 Pulse 77 12/05/18 06:58 Resp 24 12/05/18 06:58 BP 154/85 H 12/05/18 06:58 Pulse Ox 96 12/05/18 12:22 Constitutional: WD/WN, vitals as above + obese; not in distress Eyes: PERRL, conjunctivae normal, anicteric sclerae ENMT: external ear and nose normal, oropharynx normal Neck: + short neck and + thick neck Thyroid: no thyromegaly Cardiovascular: Rate/Rhythm: regular rate and regular rhythm Heart Sounds: normal S1 and normal S2; no gallop, no murmur and no cardiac rub Vessels: no carotid bruit Extremities: + pedal edema (1+ bilateral edema) Skin: no rashes, warm and dry Results & Data Laboratory Results Laboratory Results - last 24 hr 12/04/18 12/04/18 12/05/18 16:05 20:12 06:14 WBC 15.35 H RBC 4.58 L Hgb 13.1 L Hct 42.4 MCV 92.6 MCH 28.6 MCHC 30.9 L RDW Std Deviation 59.3 H RDW Coeff of Alfonso 17.6 H Plt Count 316 MPV 9.3 Sodium Potassium Chloride Carbon Dioxide Anion Gap BUN Creatinine Est Cr Clr Drug Dosing Est GFR ( Amer) Est GFR (Non-Af Amer) BUN/Creatinine Ratio Glucose POC Glucose 166 H 163 H Calcium 12/05/18 12/05/18 12/05/18 06:14 07:20 11:20 WBC RBC Hgb Hct MCV MCH MCHC RDW Std Deviation RDW Coeff of Alfonso Plt Count MPV Sodium 138 Potassium 4.6 Chloride 101 Carbon Dioxide 33 H Anion Gap 4.0 BUN 78 H Creatinine 2.26 H Est Cr Clr Drug Dosing 39.5 Est GFR ( Amer) 32.6 Est GFR (Non-Af Amer) 28.1 BUN/Creatinine Ratio 34.4 H Glucose 148 H POC Glucose 144 H 166 H Calcium 9.8
--- NOTE | 2018-12-05 17:10 | Hospitalist Progress Note ---
Date of Service December 05, 2018 Assessment & Plan (1) Respiratory failure: Hypoxia Acute on chronic diastolic heart failure Present on admission with worsening SOB and weakness CXR showed mild congestive heart failure. CTA chest showed suboptimal evaluation of the pulmonary arterial tree secondary to contrast bolus timing. No central pulmonary emboli identified. Continue oxygen supplement Monitor I/O Cardiology on board Will hold Torsemide today due to elevate creatine Monitor BMP (2) UTI (urinary tract infection): UA positive for leukocytes and bacteria Elevated procalcitonin and WBC Urine cx grew Ecoli IV cefepime changed to Keflex Continue Keflex daily Blood cx no growth Stable (3) Weakness: Mostly due to acute illness Marker sent for SLE since pt has been on hydralazine Fall precaution Continue PT/OT PT/OT recommended inpatient therapy Pt refused to go to rehab/SNF for therapy (4) Acute renal failure superimposed on stage 3 chronic kidney disease: Creatinine 1.7 on admission Creatinine increased to 2.2 today Hold torsemide 40mg today Avoid nephrotoxic agents Monitor BMP (5) Elevated troponin: Demand ischemia mostly related to respiratory failure with hypoxia/ elevated creatinine Troponin trending down Denies any chest pain Continue aspirin and metoprolol ECHO showed moderate concentric LVH Left ventricle wall motion is normal Grade 2 diastolic dysfunction with EF 65-70% Continue aspirin, statin and metoprolol Continue monitor in tele (6) Obstructive sleep apnea on CPAP: On Cpap Advised pt to use the Cpap tonight (7) Hypertension: BP elevated Continue hydralazine Metoprolol increased to 100mg BID Isosorbide dinitrate increased to 40mg TID Continue monitor BP (8) Diabetes: Most recent HBA1C 5.8 on 09/18 Well controlled Continue lantus with novolog sliding scale Continue monitor BS DVT px on heparin subq CODE STATUS FULL CODE Disposition Continue monitor in Tele Subjective Pt was seen and examined Lying in bed with no distress Pt said that he walked in the room today with therapy I told him that therapist recommended inpatient rehab He said that he has been doing therapy at home about twice a week he said that he went to [facility] before but felt that it was a waste because he was just sitting afound He said that he would rather go home with home health services with PT/OT Denies any chest pain, palpitation, dizziness and fever Physical Exam 2 Vital Signs (Past 24 Hours): Last Vital Signs Temp 36.7 C 12/05/18 15:20 Pulse 74 12/05/18 16:04 Resp 20 12/05/18 15:20 BP 149/77 H 12/05/18 16:04 Pulse Ox 91 12/05/18 15:20 Physical Exam: General- No acute distress, obese Head- atraumatic Eyes- PERRL, EOMI, ENT- oropharynx clear Neck- supple, no JVD Lungs- diminish breath sound Heart- regular rhythm Abdomen- normal bowel sounds, Nontender Extremities- no calf tenderness, +edema Neuro- alert, oriented x 3; PERRL, EOMI; no facial palsy; no dysarthria Skin- warm & dry
[2018-12-05] MEDS: TRAZODONE HCL 50 MG TAB PO SCH (20:48)
[2018-12-05] MEDS: ATORVASTATIN 20 MG TAB PO SCH (20:50)
[2018-12-05] MEDS: ALLOPURINOL 300 MG TAB PO SCH (20:51)
[2018-12-06] MEDS: HEPARIN SOD 5,000 UNIT/0.5 ML VIAL SQ SCH ×3 (05:39→20:33)
[2018-12-06 07:12] LABS: BUN Creatinine Ratio 36.8 (10-20); Calcium 9.5 mg/dl (8.5-10.1); Creatinine Clr Calc Pharmacy 36.9 ml/min; Est GFR (African American) 30.3; Est GFR (Non-African American) 26.2; Potassium 4.2 mmol/L (3.5-5.1)
[2018-12-06] MEDS: ISOSORBIDE DINITRATE 20 MG TAB PO SCH ×3 (08:37→17:26)
[2018-12-06] MEDS: INSULIN ASPART 100 UNITS/ML 3 ML PEN SC SCH ×4 (08:40→20:34)
[2018-12-06] MEDS: HydrALAZINE TAB 50 MG TAB PO SCH ×3 (08:42→20:33)
[2018-12-06] MEDS: FERROUS SULFATE 325 MG TAB PO SCH ×2 (08:43→20:33)
[2018-12-06] MEDS: ASPIRIN 81 MG ECTAB PO SCH (08:43)
[2018-12-06] MEDS: cephALEXin 500 MG CAP PO SCH ×2 (08:44→20:33)
[2018-12-06] MEDS: PARoxetine HCl 20 MG TAB PO SCH (08:45)
[2018-12-06] MEDS: METOPROLOL SUCC 50MG EXT REL TAB PO SCH ×2 (08:46→20:32)
[2018-12-06] MEDS: PANTOprazole 40 MG TAB PO SCH (08:46)
[2018-12-06] MEDS: POTASSIUM CHLORIDE 20 MEQ TABCR PO SCH (08:48)
[2018-12-06] MEDS: INSULIN DETEMIR FLEXPEN/FLEX TOUCH 100 UNITS/ML 3ML SC SCH ×2 (08:49→20:36)
--- NOTE | 2018-12-06 12:39 | Hospitalist Progress Note ---
Date of Service December 06, 2018 Assessment & Plan (1) Respiratory failure: Hypoxia Acute on chronic diastolic heart failure Present on admission with worsening SOB and weakness CXR showed mild congestive heart failure. CTA chest showed suboptimal evaluation of the pulmonary arterial tree secondary to contrast bolus timing. No central pulmonary emboli identified. Continue oxygen supplement Monitor I/O Cardiology on board Continue holding Torsemide due to elevate creatinine Case discussed with cardiology, plan to start on torsemide 20mg daily if creatinine back to baseline Continue monitor BMP (2) UTI (urinary tract infection): UA positive for leukocytes and bacteria Elevated procalcitonin and WBC Urine cx grew Ecoli IV cefepime changed to Keflex Continue Keflex daily Blood cx no growth Stable (3) Weakness: Mostly due to acute illness Marker sent for SLE since pt has been on hydralazine Fall precaution Continue PT/OT PT/OT recommended inpatient therapy Pt refused to go to rehab/SNF for therapy (4) Acute renal failure superimposed on stage 3 chronic kidney disease: Creatinine 1.7 on admission Creatinine increased to 2.4 today Hold torsemide 40mg today Avoid nephrotoxic agents Monitor BMP (5) Elevated troponin: Demand ischemia mostly related to respiratory failure with hypoxia/ elevated creatinine Troponin trending down Denies any chest pain Continue aspirin and metoprolol ECHO showed moderate concentric LVH Left ventricle wall motion is normal Grade 2 diastolic dysfunction with EF 65-70% Continue aspirin, statin and metoprolol Continue monitor in tele (6) Obstructive sleep apnea on CPAP: On Cpap Advised pt to use the Cpap tonight (7) Hypertension: BP stable Continue hydralazine Metoprolol increased to 100mg BID Isosorbide dinitrate increased to 40mg TID yesterday Continue monitor BP (8) Diabetes: Most recent HBA1C 5.8 on 09/18 Well controlled Continue lantus with novolog sliding scale Continue monitor BS DVT px on heparin subq CODE STATUS FULL CODE Disposition Will transfer to medical today Subjective Pt was seen and examined Sitting in chair with no distress Pt said that his breathing seems to improve while at rest He said that he got tired very easily when working with therapy this morning He asked them to place the finch again last night after i d/hilda yesterday Denies any chest pain, palpitation, dizziness and SOB Physical Exam 2 Vital Signs (Past 24 Hours): Last Vital Signs Temp 36.6 C 12/06/18 11:27 Pulse 74 12/06/18 11:27 Resp 16 02/05/19 11:27 BP 113/68 12/06/18 11:27 Pulse Ox 93 12/06/18 11:29 Physical Exam: General- No acute distress, obese Head- atraumatic Eyes- PERRL, EOMI, ENT- oropharynx clear Neck- supple, no JVD Lungs- diminish breath sound Heart- regular rhythm Abdomen- normal bowel sounds, Nontender Extremities- no calf tenderness, +edema Neuro- alert, oriented x 3; PERRL, EOMI; no facial palsy; no dysarthria Skin- warm & dr
--- NOTE | 2018-12-06 16:20 | Cardiology Progress Note ---
Date of Service December 06, 2018 Assessment & Plan (1) Respiratory failure: Patient presents with gradual weakness and hypoxia evidence of probable right heart failure and mild volume overload. Findings in the setting of preserved ejection fraction by history. Troponins are elevated but flat Plan: Echocardiogram demonstrates hyperdynamic LV function without wall motion abnormality greater than 70%. Patient has manifested diuresis since admission. Currently diuretics on hold blood pressure trending better however tolerating current medication changes continue as ordered (2) Hypoxia: As above (3) Chronic right-sided congestive heart failure: Multifactorial (4) Hypertensive cardiovascular disease: Plan as above would increase activities Subjective Feels about the same today sitting out of bed in chair no acute complaints. Blood pressures trending better Still diuresing though diuretics on hold. Physical Exam 2 Vital Signs (Past 24 Hours): Last Vital Signs Temp 36.9 C 12/06/18 15:17 Pulse 79 12/06/18 15:17 Resp 18 12/06/18 15:17 BP 123/65 12/06/18 15:17 Pulse Ox 96 12/06/18 15:17 Constitutional: WD/WN, vitals as above + ill appearing and + obese; not in distress Eyes: PERRL, conjunctivae normal, anicteric sclerae ENMT: external ear and nose normal, oropharynx normal Neck: + short neck and + thick neck Thyroid: no thyromegaly Cardiovascular: Rate/Rhythm: regular rate and regular rhythm Heart Sounds: normal S1 and normal S2; no gallop, no murmur and no cardiac rub Vessels: no carotid bruit Extremities: + pedal edema (1+ bilateral edema) Gastrointestinal (Abdomen): Obese soft with moderate panniculus slightly less distended Skin: no rashes, warm and dry Results & Data Laboratory Results Laboratory Results - last 24 hr 12/05/18 12/05/18 12/06/18 16:30 20:07 06:22 Sodium 139 Potassium 4.2 Chloride 101 Carbon Dioxide 31 Anion Gap 8.0 BUN 88 H Creatinine 2.40 H Est Cr Clr Drug Dosing 36.9 Est GFR ( Amer) 30.3 Est GFR (Non-Af Amer) 26.2 BUN/Creatinine Ratio 36.8 H Glucose 141 H POC Glucose 192 H 150 H Calcium 9.5 12/06/18 12/06/18 12/06/18 07:36 11:26 16:08 Sodium Potassium Chloride Carbon Dioxide Anion Gap BUN Creatinine Est Cr Clr Drug Dosing Est GFR ( Amer) Est GFR (Non-Af Amer) BUN/Creatinine Ratio Glucose POC Glucose 143 H 160 H 140 H Calcium
[2018-12-06] MEDS: ALLOPURINOL 300 MG TAB PO SCH (20:32)
[2018-12-06] MEDS: TRAZODONE HCL 50 MG TAB PO SCH (20:32)
[2018-12-06] MEDS: ATORVASTATIN 20 MG TAB PO SCH (20:33)
[2018-12-07] MEDS: ISOSORBIDE DINITRATE 20 MG TAB PO SCH ×3 (05:24→18:45)
[2018-12-07] MEDS: HEPARIN SOD 5,000 UNIT/0.5 ML VIAL SQ SCH ×3 (05:26→20:13)
[2018-12-07 07:44] LABS: Hematocrit (blood only) 37.2 % (42-52); Hemoglobin 11.4 g/dL (14.0-18.0); Mean Corpuscular Hgb Conc 30.6 g/dL (32-36); Mean Corpuscular Volume 90.5 fL (80-100); Mean Platelet Volume 9.6 fL (7.4-10.4); Platelet Count 290 K/uL (130-400); RDW Coefficient of Variation 17.3 % (11.5-14.5); RDW Standard Deviation 57.7 fL (36.4-46.3); Red Blood Count 4.11 M/uL (4.7-6.1); White Blood Count 12.89 K/uL (4.8-10.8)
[2018-12-07] MEDS: ASPIRIN 81 MG ECTAB PO SCH (08:03)
[2018-12-07] MEDS: POTASSIUM CHLORIDE 20 MEQ TABCR PO SCH (08:03)
[2018-12-07] MEDS: FERROUS SULFATE 325 MG TAB PO SCH ×2 (08:03→20:13)
[2018-12-07] MEDS: HydrALAZINE TAB 50 MG TAB PO SCH ×3 (08:03→20:13)
[2018-12-07] MEDS: PANTOprazole 40 MG TAB PO SCH (08:04)
[2018-12-07] MEDS: PARoxetine HCl 20 MG TAB PO SCH (08:04)
[2018-12-07] MEDS: METOPROLOL SUCC 50MG EXT REL TAB PO SCH ×2 (08:04→20:13)
[2018-12-07] MEDS: INSULIN DETEMIR FLEXPEN/FLEX TOUCH 100 UNITS/ML 3ML SC SCH ×2 (08:05→20:13)
[2018-12-07] MEDS: INSULIN ASPART 100 UNITS/ML 3 ML PEN SC SCH ×4 (08:06→20:08)
[2018-12-07 08:13] LABS: BUN Creatinine Ratio 40.3 (10-20); Calcium 9.2 mg/dl (8.5-10.1); Creatinine Clr Calc Pharmacy 44.5 ml/min; Est GFR (African American) 38.3; Potassium 4.4 mmol/L (3.5-5.1)
[2018-12-07] MEDS: TORSEMIDE 20 MG TAB PO SCH (14:14)
--- NOTE | 2018-12-07 17:57 | Hospitalist Progress Note ---
Date of Service December 07, 2018 Assessment & Plan (1) Respiratory failure: Hypoxia Acute on chronic diastolic heart failure Present on admission with worsening SOB and weakness CXR showed mild congestive heart failure. CTA chest showed suboptimal evaluation of the pulmonary arterial tree secondary to contrast bolus timing. No central pulmonary emboli identified. Continue oxygen supplement resuming Torsemide as 40 mg daily (2) UTI (urinary tract infection): UA positive for leukocytes and bacteria Elevated procalcitonin and WBC Urine cx grew Ecoli IV cefepime changed to Keflex completed Keflex on 12/06/18 Blood cx no growth Stable (3) Weakness: Mostly due to acute illness Marker sent for SLE since pt has been on hydralazine Fall precaution Continue PT/OT PT/OT recommended inpatient therapy Patient may have bed to [facility] level of care by 12/08/18 (4) Acute renal failure superimposed on stage 3 chronic kidney disease: Creatinine 1.7 on admission Creatinine increased to 2.4 on 12/06/18 and torsemide was held Creatinine 1.98 on 12/07/18 and resuming Torsemide as 40 mg daily (5) Elevated troponin: Demand ischemia mostly related to respiratory failure with hypoxia/ elevated creatinine Troponin trended down Denies any chest pain Continue aspirin and metoprolol ECHO showed moderate concentric LVH Left ventricle wall motion is normal Grade 2 diastolic dysfunction with EF 65-70% Continue aspirin, statin and metoprolol (6) Obstructive sleep apnea on CPAP: On Cpap (7) Hypertension: Continue hydralazine Metoprolol 100mg BID Isosorbide dinitrate 40mg TID (8) Diabetes: Type 2 Diabetes Mellitus controlled on [facility] use of insulin Most recent HBA1C 5.8 on 09/18 Continue lantus with novolog sliding scale DVT px on heparin subq CODE STATUS FULL CODE Subjective Patient eating well at bedside. Reports leg edema has improved. denies shortness of breath while on nasal cannula. denies chest pain or palpitations Physical Exam 2 Vital Signs (Past 24 Hours): Last Vital Signs Temp 36.6 C 12/07/18 14:41 Pulse 72 12/07/18 14:41 Resp 20 12/07/18 07:59 BP 143/72 H 12/07/18 14:41 Pulse Ox 92 12/07/18 14:53 Physical Exam: General- No acute distress, obese Head- atraumatic Eyes- PERRL, EOMI, ENT- oropharynx clear Neck- supple, no JVD Lungs- diminish breath sound Heart- regular rhythm Abdomen- normal bowel sounds, Nontender Extremities- no calf tenderness Neuro- alert, oriented x 3; PERRL, EOMI; no facial palsy; no dysarthria Skin- warm & dr
[2018-12-07] MEDS ORDERED: POLYETHYLENE (MIRALAX) 17 GM PACK PO PRN (18:35)
[2018-12-07] MEDS: ATORVASTATIN 20 MG TAB PO SCH (20:13)
[2018-12-07] MEDS: TRAZODONE HCL 50 MG TAB PO SCH (20:13)
[2018-12-07] MEDS: SENNA 8.6 MG TAB PO SCH (20:13)
[2018-12-07] MEDS: ALLOPURINOL 300 MG TAB PO SCH (20:13)
[2018-12-08] MEDS: HEPARIN SOD 5,000 UNIT/0.5 ML VIAL SQ SCH ×3 (06:27→13:47)
[2018-12-08] MEDS: ISOSORBIDE DINITRATE 20 MG TAB PO SCH ×2 (06:30→12:17)
[2018-12-08 06:42] LABS: BUN Creatinine Ratio 36.1 (10-20); Calcium 9.4 mg/dl (8.5-10.1); Creatinine Clr Calc Pharmacy 49.6 ml/min; Est GFR (African American) 43.2; Est GFR (Non-African American) 37.3; Magnesium 2.4 mg/dl (1.8-2.4); Potassium 4.3 mmol/L (3.5-5.1)
[2018-12-08] MEDS: INSULIN ASPART 100 UNITS/ML 3 ML PEN SC SCH ×2 (08:11→12:07)
[2018-12-08] MEDS: METOPROLOL SUCC 50MG EXT REL TAB PO SCH (08:13)
[2018-12-08] MEDS: FERROUS SULFATE 325 MG TAB PO SCH (08:13)
[2018-12-08] MEDS: HydrALAZINE TAB 50 MG TAB PO SCH ×2 (08:14→13:45)
[2018-12-08] MEDS: SENNA 8.6 MG TAB PO SCH (08:14)
[2018-12-08] MEDS: POTASSIUM CHLORIDE 20 MEQ TABCR PO SCH (08:15)
[2018-12-08] MEDS: ASPIRIN 81 MG ECTAB PO SCH (08:15)
[2018-12-08] MEDS: INSULIN DETEMIR FLEXPEN/FLEX TOUCH 100 UNITS/ML 3ML SC SCH (08:16)
[2018-12-08] MEDS: PANTOprazole 40 MG TAB PO SCH (08:17)
[2018-12-08] MEDS: PARoxetine HCl 20 MG TAB PO SCH (08:17)
[2018-12-08] MEDS: TORSEMIDE 20 MG TAB PO SCH (12:17)
--- NOTE | 2018-12-08 13:02 | Hospitalist Progress Note ---
Date of Service December 08, 2018 Assessment & Plan (1) Respiratory failure: Hypoxia due to Acute on chronic diastolic heart failure Present on admission with worsening SOB and weakness CXR showed mild congestive heart failure. CTA chest showed suboptimal evaluation of the pulmonary arterial tree secondary to contrast bolus timing. No central pulmonary emboli identified. Continue oxygen supplement patient should continue to hold off on lisinopril for now because of acute kidney injury on this admission. The discharging dose of Torsemide 40 mg is less than usual 60 mg daily dose at home but patient also now on higher doses of Metoprolol from this hospital admission and also on isosorbide dinitrate as 40 mg TID. patient will have close outpatient follow ups with primary care doctor and cardiology service and further titration of cardiovascular medications can be adjusted as needed (2) UTI (urinary tract infection): UA positive for leukocytes and bacteria Elevated procalcitonin and WBC Urine cx grew Ecoli IV cefepime changed to Keflex completed Keflex on 12/06/18 Blood cx no growth Stable (3) Weakness: Mostly due to acute illness Marker sent for SLE since pt has been on hydralazine (SPIKE, ANCA, histones pending results) PT/OT recommended inpatient therapy Patient have bed to [facility] for SNF level of care for 12/08/18 (4) Acute renal failure superimposed on stage 3 chronic kidney disease: Creatinine 1.7 on admission Creatinine increased to 2.4 on 12/06/18 and torsemide was held Creatinine 1.98 on 12/07/18 and resuming Torsemide as 40 mg daily Creatinine 1.79 on 12/08/18 and the acute kidney injury has been resolving patient should continue to hold off on lisinopril for now. The discharging dose of Torsemide 40 mg is less than usual 60 mg daily dose at home (5) Elevated troponin: Demand ischemia mostly related to respiratory failure with hypoxia/ elevated creatinine also treated for Acute on Chronic diastolic congestive heart failure Troponin trended down Denies any chest pain Continue aspirin and metoprolol ECHO showed moderate concentric LVH Left ventricle wall motion is normal Grade 2 diastolic dysfunction with EF 65-70% Continue aspirin, statin and metoprolol (6) Obstructive sleep apnea on CPAP: Continue Cpap with sleep (7) Hypertension: Continue hydralazine Metoprolol 100mg BID Isosorbide dinitrate 40mg TID (8) Diabetes: Type 2 Diabetes Mellitus controlled on nursing home use of insulin Most recent HBA1C 5.8 on 09/18 Continue insulin as outpatient DVT px on heparin subq Discharge Diagnosis Acute on Chronic diastolic congestive heart failure, Acute on Chronic respiratory failure with hypoxia, Urinary tract infection, Acute Kidney Injury, Chronic Kidney Disease stage III, Hypertension, Obstructive sleep apnea on CPAP , 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 Discharge Instructions Discharge to [facility] 12/12/2018 11:20 AM Provider Keyon Rdz DO Department General Internal Medicine [facility] 12/23/2018 3:00 PM Provider Lalo Flores PA-C Department Cardiology, [facility] 12/30/2018 3:40 PM Provider STARLA Pope Department Sleep Disorders, [facility] 01/03/2019 6:15 PM Provider Schuyler Antoine Department Pharmacy, [facility] CHF Discharge Instructions Call 911 and go to the Emergency Room if: * You have tightness or pain in your chest that does not go away with rest or Nitroglycerin * You are very short of breath even with rest Call your doctor if any of the following symptoms or problems start or get worse: * Shortness of breath or difficulty breathing * Wake up at night short of breath * Chest pain * Cough * Swelling of your hands, fee, or legs * More fatigued or tired with your normal activity * Palpitations - sudden fast heart beats WEIGHT * Weigh yourself every morning after using the bathroom. * Use the same scale. * Wear the same amount of clothing. * Write your weight down on your chart. * Call your doctor if you gain more than 2-3 pounds in 1-2 days. MEDICATIONS * Use this discharge instruction sheet for instructions. * Take your medications at the time your doctor ordered. * Do not skip a dose of your medicines. * If you miss a dose of medicine, take as soon as possible, but DO NOT DOUBLE A DOSE. * Read your medicine information when you get home. * Know all of the side effects of your medicine. * Call your doctor's office if you have any side effects. * Be sure all of your doctors know what medicine and herbs you take (including cold, flu, and herbal medicine). * Pain Medicine: If you do not get relief from your pain, please call your doctor for help. Take the following with you to your follow-up doctor appointments: * Weight Chart * Medication List * List of questions Do not drink excessive alcohol, beer or wine. Subjective denies shortness of breath while on nasal cannula. denies chest pain or palpitations Physical Exam 2 Vital Signs (Past 24 Hours): Last Vital Signs Temp 36.6 C 12/07/18 23:39 Pulse 75 12/08/18 07:00 Resp 20 12/08/18 07:00 BP 135/77 12/08/18 07:00 Pulse Ox 90 12/08/18 07:00 Constitutional: + obese Eyes: PERRL, conjunctivae normal, anicteric sclerae ENMT: external ear and nose normal, oropharynx normal Neck: trachea midline, no thyromegaly Respiratory: normal respiratory effort, lungs clear to auscultation Cardiovascular: Rate/Rhythm: regular rate Gastrointestinal (Abdomen): normal bowel sounds, soft, nontender, no hepatosplenomegaly Musculoskeletal: Head/Neck/Chest: normocephalic and head atraumatic Neurologic: PERRL, EOMI, accommodation nl, no face palsy, no dysarthria CN' s II-XI intact bilaterally Psychiatric: A+Ox3, euthymic affect
--- NOTE | 2018-12-08 13:45 | Discharge Summary ---
Date of Service December 08, 2018 Admission HPI Per Admitting Provider Medical history significant for chronic respiratory failure on home O2, obstructive sleep apnea, restrictive lung disease as per records, chronic diastolic heart failure (EF 55- 60% TTE 2017), hypertension, DM2 insulin requiring, CRI (baseline creatinine of 1.4-1.5), chronic anemia (baseline hemoglobin of 13). Recent confinement March 2017 for COPD exacerbation. Patient seen at [facility] cardiology office last month for follow-up. Patient complaining of being tired all the time, can barely walk, shortness of breath on exertion. Diuretic therapy titrated as per records. Patient noted worsening shortness of breath yesterday. Denies chest pain, unusual cough symptoms. Admits to weight gain despite compliance with diuretic Rx. Patient unaware of BP control at home. Medical History as above TTE October 2018: Mild concentric LVH, EF 55-60%, grade 2 diastolic dysfunction , no significant valvular pathology, moderate LAE. Family History : Heart disease, stroke Personal/Social history : Non-smoker, no EtOH intake, disabled Admission Exam Per Admitting Provider GENERAL: Obese, anxious, minimal respiratory distress, unkempt SKIN: pallor, warm HEENT: Pale palpebral conjunctivae, no ptosis, dry buccal mucosa NECK : Supple, short, no tenderness CHEST : Decreased breath sounds, no tenderness HEART : RRR, no obvious murmurs ABDOMEN: distention, nontender EXTREMITIES : minimal LE swelling, no tenderness, no other conspicuous deformities noted NEUROLOGIC : Coherent, no facial asymmetry, no other gross focality except for mild hearing impairment Principal Diagnosis Acute on Chronic diastolic congestive heart failure, Acute on Chronic respiratory failure with hypoxia, Urinary tract infection, Acute Kidney Injury, Chronic Kidney Disease stage III, Hypertension, Obstructive sleep apnea on CPAP , Type 2 diabetes mellitus with senior living use of insulin Discharge Exam Constitutional + obese Eyes PERRL, conjunctivae normal, anicteric sclerae ENMT external ear and nose normal, oropharynx normal Neck trachea midline, no thyromegaly Respiratory normal respiratory effort, lungs clear to auscultation Cardiovascular Rate/Rhythm: regular rate Gastrointestinal (Abdomen) normal bowel sounds, soft, nontender, no hepatosplenomegaly Musculoskeletal Head/Neck/Chest: normocephalic and head atraumatic Neurologic PERRL, EOMI, accommodation nl, no face palsy, no dysarthria CN's II-XI intact bilaterally Psychiatric A+Ox3, euthymic affect Discharge Data Allergies Allergy/AdvReac Type Severity Reaction Status Date / Time minoxidil Allergy Intermediate RASH Verified 11/30/18 23:59 venlafaxine Allergy Intermediate HTN, GASPERKEY Verified 11/30/18 23:59 amlodipine Allergy Unknown Unknown Verified 11/30/18 23:58 clonidine AdvReac Unknown INTOLERANT Verified 11/30/18 23:59 Consultations 12/01/18 00:39 ED Decision to Admit Stat 12/01/18 01:59 Consult Cardiology Routine Consult Case Management - Discharge Planning Routine Ordered Studies 11/30/18 22:46 CT head/brain wo con Urgent 11/30/18 23:37 CT angio chest PE protocol Urgent Hospital Course (1) Respiratory failure: Hypoxia due to Acute on chronic diastolic heart failure Present on admission with worsening SOB and weakness CXR showed mild congestive heart failure. CTA chest showed suboptimal evaluation of the pulmonary arterial tree secondary to contrast bolus timing. No central pulmonary emboli identified. Continue oxygen supplement patient should continue to hold off on lisinopril for now because of acute kidney injury on this admission. The discharging dose of Torsemide 40 mg is less than usual 60 mg daily dose at home but patient also now on higher doses of Metoprolol from this hospital admission and also on isosorbide dinitrate as 40 mg TID. patient will have close outpatient follow ups with primary care doctor and cardiology service and further titration of cardiovascular medications can be adjusted as needed (2) UTI (urinary tract infection): UA positive for leukocytes and bacteria Elevated procalcitonin and WBC Urine cx grew Ecoli IV cefepime changed to Keflex completed Keflex on 12/06/18 Blood cx no growth Stable (3) Weakness: Mostly due to acute illness Marker sent for SLE since pt has been on hydralazine (SPIKE, ANCA, histones pending results) PT/OT recommended inpatient therapy Patient have bed to [facility] for SNF level of care for 12/08/18 (4) Acute renal failure superimposed on stage 3 chronic kidney disease: Creatinine 1.7 on admission Creatinine increased to 2.4 on 12/06/18 and torsemide was held Creatinine 1.98 on 12/07/18 and resuming Torsemide as 40 mg daily Creatinine 1.79 on 12/08/18 and the acute kidney injury has been resolving patient should continue to hold off on lisinopril for now. The discharging dose of Torsemide 40 mg is less than usual 60 mg daily dose at home (5) Elevated troponin: Demand ischemia mostly related to respiratory failure with hypoxia/ elevated creatinine also treated for Acute on Chronic diastolic congestive heart failure Troponin trended down Denies any chest pain Continue aspirin and metoprolol ECHO showed moderate concentric LVH Left ventricle wall motion is normal Grade 2 diastolic dysfunction with EF 65-70% Continue aspirin, statin and metoprolol (6) Obstructive sleep apnea on CPAP: Continue Cpap with sleep (7) Hypertension: Continue hydralazine Metoprolol 100mg BID Isosorbide dinitrate 40mg TID (8) Diabetes: Type 2 Diabetes Mellitus controlled on senior living use of insulin Most recent HBA1C 5.8 on 09/18 Continue insulin as outpatient DVT px on heparin subq Discharge Diagnosis Acute on Chronic diastolic congestive heart failure, Acute on Chronic respiratory failure with hypoxia, Urinary tract infection, Acute Kidney Injury, Chronic Kidney Disease stage III, Hypertension, Obstructive sleep apnea on CPAP , Type 2 diabetes mellitus with senior living use of insulin Discharge Instructions Discharge to [facility] 12/12/2018 11:20 AM Provider Keyon Rdz DO Department General Internal Medicine [facility] 12/23/2018 3:00 PM Provider Lalo Flores PA-C Department Cardiology, [facility] 12/30/2018 3:40 PM Provider STARLA Pope Department Sleep Disorders, [facility] 01/03/2019 6:15 PM Provider Schuyler Carvajal Department Pharmacy, [facility] CHF Discharge Instructions Call 911 and go to the Emergency Room if: * You have tightness or pain in your chest that does not go away with rest or Nitroglycerin * You are very short of breath even with rest Call your doctor if any of the following symptoms or problems start or get worse: * Shortness of breath or difficulty breathing * Wake up at night short of breath * Chest pain * Cough * Swelling of your hands, fee, or legs * More fatigued or tired with your normal activity * Palpitations - sudden fast heart beats WEIGHT * Weigh yourself every morning after using the bathroom. * Use the same scale. * Wear the same amount of clothing. * Write your weight down on your chart. * Call your doctor if you gain more than 2-3 pounds in 1-2 days. MEDICATIONS * Use this discharge instruction sheet for instructions. * Take your medications at the time your doctor ordered. * Do not skip a dose of your medicines. * If you miss a dose of medicine, take as soon as possible, but DO NOT DOUBLE A DOSE. * Read your medicine information when you get home. * Know all of the side effects of your medicine. * Call your doctor's office if you have any side effects. * Be sure all of your doctors know what medicine and herbs you take (including cold, flu, and herbal medicine). * Pain Medicine: If you do not get relief from your pain, please call your doctor for help. Take the following with you to your follow-up doctor appointments: * Weight Chart * Medication List * List of questions Do not drink excessive alcohol, beer or wine. Total Time Total Time Spent Total Time Spent (In Minutes): 40 minutes Total Time Includes: Examination of the Patient, Discharge Planning and Medication Reconciliation Discharge Plan Discharge Items Patient Disposition: Transfer [facility] Reason For Visit: RESPIRATORY FAILURE Discharge Diagnosis: Acute on Chronic diastolic congestive heart failure, Acute on Chronic respiratory failure with hypoxia, Urinary tract infection, Acute Kidney Injury, Chronic Kidney Disease stage III, Hypertension, Obstructive sleep apnea on CPAP, 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 Condition: Good Discharge Goals: Improve disease control Activity: Resume your previous activity Non-emergency contact: Primary Care Provider and Client Experience Consultant Call non-emergency contact if: you have any medication questions Diet: Carb Consistent or DM2 and Heart Healthy Fluids: 2000ml (8 cups) Addtl Provider Instructions: Discharge Instructions Discharge to [facility] 12/12/2018 11:20 AM Provider Keyon Rdz DO Department General Internal Medicine [facility] 12/23/2018 3:00 PM Provider Lalo Flores PA-C Department Cardiology, [facility] 12/30/2018 3:40 PM Provider STARLA Pope Department Sleep Disorders, [facility] 01/03/2019 6:15 PM Provider Schuyler Carvajal Department CHF Discharge Instructions Call 911 and go to the Emergency Room if: * You have tightness or pain in your chest that does not go away with rest or Nitroglycerin * You are very short of breath even with rest Call your doctor if any of the following symptoms or problems start or get worse: * Shortness of breath or difficulty breathing * Wake up at night short of breath * Chest pain * Cough * Swelling of your hands, fee, or legs * More fatigued or tired with your normal activity * Palpitations - sudden fast heart beats WEIGHT * Weigh yourself every morning after using the bathroom. * Use the same scale. * Wear the same amount of clothing. * Write your weight down on your chart. * Call your doctor if you gain more than 2-3 pounds in 1-2 days. MEDICATIONS * Use this discharge instruction sheet for instructions. * Take your medications at the time your doctor ordered. * Do not skip a dose of your medicines. * If you miss a dose of medicine, take as soon as possible, but DO NOT DOUBLE A DOSE. * Read your medicine information when you get home. * Know all of the side effects of your medicine. * Call your doctor's office if you have any side effects. * Be sure all of your doctors know what medicine and herbs you take (including cold, flu, and herbal medicine). * Pain Medicine: If you do not get relief from your pain, please call your doctor for help. Take the following with you to your follow-up doctor appointments: * Weight Chart * Medication List * List of questions Do not drink excessive alcohol, beer or wine. Pharmacy, [facility] Prescriptions: New sennosides [Senokot] 8.6 mg Tablet 8.6 mg PO QAM 30 Days Qty: 30 RF: 0 torsemide 20 mg Tablet 40 mg PO Q24H 30 Days Qty: 60 RF: 0 trazodone 50 mg Tablet 50 mg PO HS 4 Days Qty: 4 RF: 0 metoprolol succinate 50 mg Tablet Extended Release 24 Hr 100 mg PO BID 30 Days Qty: 120 RF: 0 isosorbide dinitrate 20 mg Tablet 40 mg PO TID@0700,1200,1700 30 Days Qty: 60 RF: 0 Continue omeprazole 40 mg capsule,delayed release(DR/EC) 40 mg PO QAM RF: 0 aspirin 81 mg Tablet,Delayed Release (Dr/Ec) 81 mg PO QAM RF: 0 hydralazine 100 mg tablet 50 mg PO TID RF: 0 allopurinol 300 mg tablet 300 mg PO HS RF: 0 paroxetine HCl 40 mg tablet 40 mg PO QAM RF: 0 glipizide 5 mg tablet 5 mg PO BID RF: 0 atorvastatin 20 mg tablet 20 mg PO HS RF: 0 ferrous sulfate [iron] 325 mg (65 mg iron) Tablet 325 mg PO BID RF: 0 clonazepam 1 mg tablet 1 mg PO BID PRN (Reason: Anxiety) RF: 0 potassium chloride [Klor-Con M20] 20 mEq tablet,ER particles/crystals 20 meq PO QAM RF: 0 insulin detemir U-100 [Levemir FlexTouch U-100 Insuln] 100 unit/mL (3 mL) insulin pen 29 unit subcut HS RF: 0 Discontinued lisinopril 20 mg tablet 20 mg PO QAM RF: 0 torsemide 20 mg tablet 60 mg PO QAM RF: 0 trazodone 50 mg tablet 50 mg PO HS RF: 0 metoprolol tartrate 50 mg tablet 75 mg PO BID RF: 0 potassium chloride [Klor-Con M20] 20 mEq tablet,ER particles/crystals 10 meq PO . LUNCHTIME RF: 0 Stand-Alone Forms: [facility] Discharge Orders: Discharge Order (Routine); Ordered 12/08/18 Ordered By: Nik Davis Skilled Items Patient informed of condition?: Yes DNR: No Discharge Level of Care: Skilled Communicable Disease: No Discharge Prognosis: Stable Admission Data Admit Date/Time: 12/01/18 01:46 Attending Provider: Nik Davis Admit Provider: Daron Espinosa Primary Care Provider: Keyon Rdz Other Providers: Daron Espinosa ; Evans Diez ; Don Silver ; Diaz Connor ; Jay Peguero ; Garland Romo ; Lalo Flores ; Paloma Man ; Ankita German Service: Medical
[2018-12-22 14:09] LABS: Anti Nuclear Antibody Screen POSITIVE (NEGATIVE); Anti-Histone Ab <1.0 U (<1.0)
[2018-12-22 15:13] LABS: ANA Pattern HOMOGENEOUS
== END 2018-12-08 16:21 | DRG 291 ==
LOC: ED 22:38 → SUATTDRO 12-01 01:46 → 2S 12-01 01:46 → 4E 12-06 17:44

== ENCOUNTER 2018-12-31 08:54 | Inpatient (IN) ==
[2018-12-31] MEDS ORDERED: SODIUM CHLORIDE 0.9% 500 ML IV SCH (09:45)
[2018-12-31 09:49] LABS: Basophils # (auto) 0.01 K/uL (0-0.2); Basophils % (auto) 0.1 %; Eosinophils # (auto) 0.71 K/uL (0-0.5); Eosinophils % (auto) 6.7 %; Hematocrit (blood only) 37.8 % (42-52); Hemoglobin 11.7 g/dL (14.0-18.0); Immature Granulocytes # (auto) 0.03 K/uL (0.00-0.02); Immature Granulocytes % (auto) 0.3 %; Lymphocytes # (auto) 1.15 K/uL (1.2-3.4); Lymphocytes % (auto) 10.9 %; Mean Corpuscular Volume 90.6 fL (80-100); Mean Platelet Volume 9.9 fL (7.4-10.4); Monocytes # (auto) 0.77 K/uL (0.11-0.59); Monocytes % (auto) 7.3 %; Neutrophils # (auto) 7.87 K/uL (1.4-6.5); Neutrophils % (auto) 74.7 %; Platelet Count 194 K/uL (130-400); RDW Coefficient of Variation 18.4 % (11.5-14.5); RDW Standard Deviation 61.8 fL (36.4-46.3); Red Blood Count 4.17 M/uL (4.7-6.1); White Blood Count 10.54 K/uL (4.8-10.8)
--- NOTE | 2018-12-31 09:57 | XRay Report ---
XR chest 1V portable CLINICAL HISTORY: dizzy dyspnea COMPARISON STUDY: 11/30/2018 FINDINGS: Chronic pleural and parenchymal change left base. Small superimposed left basilar infiltrat e. Mild chronic prominence pulmonary vasculature. Bowel stable cardiomegaly. IMPRESSION: Small parenchymal infiltrate left base superimposed upon chronic pleural and parenchymal change. The above report was generated using voice recognition software. It may contain grammatical, syntax or spelling errors. Electronically signed by: Lalo Chambers M.D. 12/31/2018 9:55 AM
[2018-12-31 10:01] LABS: Prothrombin Time 10.1 Seconds (9.0-12.0)
[2018-12-31 10:02] LABS: Base Excess VBG 5.6 mEq/L; HCO3 VBG 32 mmol/L; PCO2 VBG 57 mmHg (38-50); PO2 VBG 27 mmHg; pH VBG 7.37 (7.36-7.41)
[2018-12-31 10:07] LABS: Oxygen Saturation VBG < 60.0 %
[2018-12-31 10:07] LABS: Alanine Aminotransferase 18 U/L (12-78); Aspartate Aminotransferase 9 U/L (15-37); Blood Urea Nitrogen 31 mg/dl (7-18); Calcium 8.8 mg/dl (8.5-10.1); Carbon Dioxide 32 mmol/L (21-32); Chloride 101 mmol/L (98-107); Creatinine Clr Calc Pharmacy 62.5 ml/min; Est GFR (African American) 55.3; Est GFR (Non-African American) 47.7; Glucose 152 mg/dl (70-99); Potassium 3.8 mmol/L (3.5-5.1); Sodium 139 mmol/L (136-145)
--- NOTE | 2018-12-31 10:09 | CT Scan Report ---
CT head/brain wo con CT DOSE: 773.57 mGy.cm HISTORY: Mental status change dizzy TECHNIQUE: Multiaxial CT images of the head were performed without the use of intravenous contrast. A dose lowering technique was utilized adhering to the principles of ALARA. Comparison: 11/30/2018 Findings: The paranasal sinuses and mastoid air cells are clear. The calvarium and skull base are int act. The ventricles and sulci are within normal limits. There is no mass, hematoma, midline shift, or acute infarct. Considerable chronic small vessel change. Impression: No acute intracranial abnormality. Extensive chronic small vessel change of aging. The above report was generated using voice recognition software. It may contain grammatical, syntax or spelling errors. Electronically signed by: Lalo Chambers M.D. 12/31/2018 10:08 AM
[2018-12-31 10:11] LABS: Albumin Globulin Ratio 0.8 (0.9-2); Alkaline Phosphatase 92 U/L (45-117); Bilirubin,Total 0.6 mg/dl (0.2-1); Globulin 3.6 gm/dl (2.5-4.0); Total Protein 6.6 gm/dl (6.4-8.2); Troponin I < 0.015 ng/ml (0-0.045)
[2018-12-31] MEDS ORDERED: cefTRIAXone SODIUM 1,000 MG/50 ML BAG IV STA (10:55)
[2018-12-31] MEDS ORDERED: ONDANSETRON INJ 2 MG/ML 2 ML VIAL IV PRN ×2 (12:37→14:13)
[2018-12-31] MEDS ORDERED: POLYETHYLENE (MIRALAX) 17 GM PACK PO PRN ×2 (12:37→14:13)
[2018-12-31] MEDS ORDERED: ACETAMINOPHEN 325 MG TAB PO PRN ×2 (12:37→14:13)
--- NOTE | 2018-12-31 13:00 | History & Physical Report ---
Date of Service December 31, 2018 Assessment & Plan (1) Dizziness: Dizziness: Likely Orthostatic secondary to medications No Presyncope/Syncope history Reports history of Tinnitus and hearing problems in right ear since [address] head: No acute intracranial findings. Extensive chronic small vessel change of aging. Monitor in Telemetry for arrhythmia Check Orthostatics Decrease Hydralazine from 50 mg to 25mg TID Decrease Isosorbide from 40mg to 20mg TID Fall precautions Meclizine PRN PT/OT eval May need ENT eval as outpatient Acute on Chronic diastolic CHF exacerbation Reports weight gain, [place], Orthopnea CXR : Small parenchymal infiltrate left base superimposed upon chronic pleural and parenchymal change. Last ECHO:Grade II diastolic dysfunction, EF: 65-70% in Nov 2018 Hold PO diuretics Start IV Lasix 60mg BID Daily weight, I/Os, fluid restriction Low sodium diet Oxygen support PRN Monitor renal function/electrolytes Cardiology consulted Ambulatory dysfunction: CT head: No acute changes Uses walker at baseline PT/OT May need rehab placement Possible Left base infiltrate on CXR: Patient denies any cough, fever Normal Procalcitonin No Leukocytosis No plan to start Abx H/O UTI UA normal Patient denies any urinary symptoms DM II Last A1C: 5.8 Will hold oral diabetic meds ISS, basal Insulin, Accu checks, Diabetic diet Update A1C HTN Stable Continue home medications CKD III Baseline Cr: Mid to high 1s Cr:1.46 Monitor renal function JT Continue home medications GERD Continue PPI RENE CPAP Qhs COPD Chronic Oxygen dependency: on 2 liters Continue Nebs Dyslipidemia Continue Stains Gout On Allopurinol Morbid Obesity BMI:48 DVT Px: Heparin SQ Code Status: Full Code Disposition: May need rehab placement Math Professor Consulted History of Present Illness Chief Complaint: Dizziness, Shortness of breath, Ambulatory dysfunction Primary Care Provider: eKyon Rdz DO Patient is a 73-year-old male with history of Diastolic heart failure, DM II, HTN, CKD III, JT, GERD, RENE on CPAP, Chronic Oxygen dependency, COPD, Dyslipidemia, Gout, Morbid Obesity and other problems presents with history of dizziness, dyspnea on exertion, ambulatory dysfunction and weight gain. Patient was recently discharged from [facility] after being treated for CHF exacerbation. P atient states having dizziness which he describes as "room spinning" since yesterday. He states having tinnitus and has hearing problem in his right ear since 6 months duration. Patient used restroom this morning and was unable to get up and ambulate secondary to weakness in his legs which prompted him to come to ED. He uses walker to ambulate at baseline. He reports dyspnea on exertion, orthopnea, weight gain of about 4 pounds in last 5-6 days. He discussed about the same with his Embedded Nurse who recommended to increase his Torsemide to 40 mg BID which he started taking since yesterday. He was discharged on Isosorbide during his prior admission but he has not been taking it secondary to unavailability at his pharmacy as per family. He started taking Isosorbide only since this morning. Reports Orthopnea but no PND. Denies any worsening of his chronic leg edema or increased supplemental oxygen requirement from his baseline. Denies any history of chest pain, cough, fever, chills, fall, head trauma, Syncope, headache, change in vision, slurred speech, nausea, vomiting, abdominal pain, diarrhea, dysuria, hematuria, increased Urinary frequency. Allergies Allergy/AdvReac Type Severity Reaction Status Date / Time minoxidil Allergy Intermediate RASH Verified 12/31/18 09:43 venlafaxine Allergy Intermediate HTN, SHAKEY Verified 12/31/18 09:43 amlodipine Allergy Unknown Unknown Verified 12/31/18 09:43 clonidine AdvReac Unknown INTOLERANT Verified 12/31/18 09:43 Home Medications Home Medications Medication Instructions Recorded Confirmed Type allopurinol 300 mg PO HS 11/30/18 12/31/18 History aspirin 81 mg PO QAM 11/30/18 12/31/18 History atorvastatin 20 mg PO HS 11/30/18 12/31/18 History clonazepam 1 mg PO BID PRN 11/30/18 12/31/18 History ferrous sulfate [iron] 325 mg PO BID 11/30/18 12/31/18 History glipizide 5 mg PO BID 11/30/18 12/31/18 History hydralazine 50 mg PO TID 11/30/18 12/31/18 History insulin detemir U-100 29 unit SUBCUT HS 11/30/18 12/31/18 History omeprazole 40 mg PO QAM 11/30/18 12/31/18 History paroxetine HCl 40 mg PO QAM 11/30/18 12/31/18 History potassium chloride 20 meq PO BID 11/30/18 12/31/18 History isosorbide dinitrate 40 mg PO TID@0700,1200,1700 30 12/08/18 12/31/18 Rx Days #60 tab metoprolol succinate 100 mg PO BID 30 Days #120 tab 12/08/18 12/31/18 Rx sennosides [Senokot] 8.6 mg PO QAM 30 Days #30 tab 12/08/18 12/31/18 Rx albuterol sulfate [Ventolin HFA] 2 puff INHALATION Q4H PRN 12/31/18 12/31/18 History ipratropium-albuterol 3 ml INHALATION Q6H 12/31/18 12/31/18 History polyethylene glycol 3350 17 g PO DAILY 12/31/18 12/31/18 History torsemide 40 mg PO BID 12/31/18 12/31/18 History trazodone 50 mg PO HS 12/31/18 12/31/18 History Past Med/Surg History Medical History Renal cyst (Chronic) Obstructive sleep apnea on CPAP (Chronic) Gout (Chronic) Dyslipidemia (Chronic) Restless leg syndrome (Chronic) GI bleed (Resolved 03/14/14) Anxiety (Chronic) Depression (Chronic) Poorly-controlled hypertension (Acute) Tremor (Acute) Essential tremor (Chronic) Restrictive airway disease (Chronic) SOB (shortness of breath) Surgical History H/O colonoscopy with polypectomy (Resolved) "2012 - polyps, adenomatous" History of pericardiotomy (Resolved) S/P tonsillectomy and adenoidectomy (Chronic) H/O colonoscopy (Chronic) " 04/09/2014- adenomatous & TVA polyps, diverticulosis 04/29/2015- normal " H/O esophagogastroduodenoscopy (Chronic) " 03/15/2014- mild-mod inflammation " Family History Other Family history non-contributory Social History Preferred Language: [place] Communication Ability: Effective Billet Cutter Required: No Beliefs That Will Affect Care: None Current Living Situation: Spouse Other Information That Helps Us Care for You: No Feels Safe at Home: Yes Safety Concerns: Feels Safe At This Time Smoking Status: Never smoker Hx Alcohol Use: No Hx Substance Use: No Review of Systems All systems reviewed & are unremarkable except as noted in HPI & below Physical Exam Vital Signs (Past 24 Hours): Last Vital Signs Temp 36.8 C 12/31/18 08:54 Pulse 78 12/31/18 12:49 Resp 21 12/31/18 12:49 BP 116/70 12/31/18 12:49 Pulse Ox 100 12/31/18 12:49 Physical Exam: Physical Exam: Vitals signs as noted above General Appearance:Morbidly Obese, no apparent distress Head: normocephalic, Atraumatic Eyes: normal inspection, EOMI Neck: supple, Trachea midline Respiratory/Chest: Decreased breath sounds, Minimal basal crackles, No accessory muscle use Cardiovascular: S1, S2, No murmur Abdomen/GI:Soft, Non tender, Bowel sounds present Extremities/Musculoskelatal:normal inspection, 1+ B/L LE edema Neurologic/Psych:AAOX3, grossly no focal neurological deficits Skin: normal color, warm Results & Data Laboratory Results Short CBC 12/31/18 Range/Units 09:40 WBC 10.54 (4.8-10.8) K/uL Hgb 11.7 L (14.0-18.0) g/dL Hct 37.8 L (42-52) % Plt Count 194 (130-400) K/uL BMP 12/31/18 09:40 Sodium 139 Potassium 3.8 Chloride 101 Carbon Dioxide 32 BUN 31 H Creatinine 1.46 H Glucose 152 H Calcium 8.8 Cardiac Enzymes 12/31/18 Range/Units 09:40 Troponin I < 0.015 (0-0.045) ng/ml Liver Function 12/31/18 Range/Units 09:40 Total Bilirubin 0.6 (0.2-1) mg/dl AST 9 L (15-37) U/L ALT 18 (12-78) U/L Alkaline Phosphatase 92 (45-117) U/L Albumin 3.0 L (3.4-5.0) gm/dl Diagnostic Findings CT head: No acute intracranial abnormality. Extensive chronic small vessel change of aging. CXR: Small parenchymal infiltrate left base superimposed upon chronic pleural and parenchymal change.
[2018-12-31] MEDS ORDERED: clonazePAM 1 MG TAB PO PRN (14:13)
[2018-12-31] MEDS ORDERED: ALBUTEROL 0.083% NEBU SOLN 3 ML VIAL NEB PRN (14:13)
[2018-12-31] MEDS ORDERED: GLUCOSE 40% GEL 15 GM TUBE PO PRN (14:13)
[2018-12-31] MEDS ORDERED: FUROSEMIDE 40 MG/4 ML VIAL IV STA (14:13)
[2018-12-31] MEDS ORDERED: DEXTROSE 50% 50 ML SYRINGE IV PRN (14:13)
[2018-12-31] MEDS ORDERED: GLUCAGON FOR INJ 1 MG VIAL SQ PRN (14:13)
[2018-12-31] MEDS ORDERED: GLUCOSE 10 TABS/TUBE PO PRN (14:13)
[2018-12-31] MEDS ORDERED: MECLIZINE 12.5 MG TAB PO PRN (14:13)
[2018-12-31] MEDS ORDERED: CARBOHYDRATES FOR HYPOGLYCEMIA PO PRN (14:13)
[2018-12-31] MEDS: ALBUT/IPRATROP 3MG/0.5MG NEB 3 ML VIAL INH SCH ×2 (15:27→19:00)
--- NOTE | 2018-12-31 15:29 | Cardiology Consultation ---
Date of Consultation December 31, 2018 Assessment & Plan (1) Dizziness: Episode of dizziness likely vertigo per history. No recurrence since admission. No acute intracranial abnormality per CT, however, consider neurology eval and/or MRI for further evaluation. Hydralazine and Isordil dosing reduced. We will have to monitor blood pressure closely for elevation. No documented symptomatic hypotension since admission. Assess orthostatic blood pressure every shift. (2) Acute on chronic diastolic heart failure: Patient with recent weight gain and physical exam evidence of right-sided heart failure with worsening edema. Overall weight is up 15 pounds since recent hospitalization. Continue IV Lasix 60 mg twice daily. Follow daily weight, fluid balance, glomerular filtration rate, and electrolytes. Would not add Aldactone at this time due to CKD. (3) Hypertensive cardiovascular disease: (4) Chronic right-sided congestive heart failure: History of Present Illness Reason for Consultation: Dizziness, congestive heart failure Requesting Physician: Dr. Sawyer Attending Physician: Chalo Sawyer MD History of Present Illness Patient presented to the emergency department with dizziness. He developed a sensation of "room spinning" in the bathroom earlier this morning. Told his that his left leg felt weak and shaky as well. She summoned EMS via 911. She brought to the emergency department. Noted to have borderline hypotension. Episode of dizziness lasted approximately 20 minutes and resolved spontaneously. Patient recently admitted to [facility] in early December due to acute decompensated diastolic heart failure. Last week he contacted the cardiology clinic with complaints of weight gain. Instructed to begin taking torsemide 40 mg twice daily over the weekend due to weight gain and edema. Chronic outpatient dose has been 40 mg once daily. Currently patient is feeling better. at bedside. She voices concern regarding recent weight gain and edema. Patient denies any excessive sodium or fluid intake. Denies any noncompliance with current medications. Most recent echocardiogram performed in December demonstrated borderline hyperdynamic left ventricular systolic function without significant valvular disease. No dysrhythmias, or bradycardia on telemetry. ECG on admission demonstrates sinus rhythm with a nonspecific T wave abnormality. No significant change when compared to prior ECG. Chest x-ray reports questionable infiltrate. CT of the head performed with out acute pathology. Allergies Allergy/AdvReac Type Severity Reaction Status Date / Time minoxidil Allergy Intermediate RASH Verified 12/31/18 09:43 venlafaxine Allergy Intermediate HTN, SHAKEY Verified 12/31/18 09:43 amlodipine Allergy Unknown Unknown Verified 12/31/18 09:43 clonidine AdvReac Unknown INTOLERANT Verified 12/31/18 09:43 Home Medications Home Medications Medication Instructions Recorded Confirmed Type allopurinol 300 mg PO HS 11/30/18 12/31/18 History aspirin 81 mg PO QAM 11/30/18 12/31/18 History atorvastatin 20 mg PO HS 11/30/18 12/31/18 History clonazepam 1 mg PO BID PRN 11/30/18 12/31/18 History ferrous sulfate [iron] 325 mg PO BID 11/30/18 12/31/18 History glipizide 5 mg PO BID 11/30/18 12/31/18 History hydralazine 50 mg PO TID 11/30/18 12/31/18 History insulin detemir U-100 29 unit SUBCUT HS 11/30/18 12/31/18 History omeprazole 40 mg PO QAM 11/30/18 12/31/18 History paroxetine HCl 40 mg PO QAM 11/30/18 12/31/18 History potassium chloride 20 meq PO BID 11/30/18 12/31/18 History isosorbide dinitrate 40 mg PO TID@0700,1200,1700 30 12/08/18 12/31/18 Rx Days #60 tab metoprolol succinate 100 mg PO BID 30 Days #120 tab 12/08/18 12/31/18 Rx sennosides [Senokot] 8.6 mg PO QAM 30 Days #30 tab 12/08/18 12/31/18 Rx albuterol sulfate [Ventolin HFA] 2 puff INHALATION Q4H PRN 12/31/18 12/31/18 History ipratropium-albuterol 3 ml INHALATION Q6H 12/31/18 12/31/18 History polyethylene glycol 3350 17 g PO DAILY 12/31/18 12/31/18 History torsemide 40 mg PO BID 12/31/18 12/31/18 History trazodone 50 mg PO HS 12/31/18 12/31/18 History Patient History Medical History Renal cyst (Chronic) Obstructive sleep apnea on CPAP (Chronic) Gout (Chronic) Dyslipidemia (Chronic) Restless leg syndrome (Chronic) GI bleed (Resolved 03/14/14) Anxiety (Chronic) Depression (Chronic) Poorly-controlled hypertension (Acute) Tremor (Acute) Essential tremor (Chronic) Restrictive airway disease (Chronic) SOB (shortness of breath) Surgical History H/O colonoscopy with polypectomy (Resolved) "2012 - polyps, adenomatous" History of pericardiotomy (Resolved) S/P tonsillectomy and adenoidectomy (Chronic) H/O colonoscopy (Chronic) " 04/09/2014- adenomatous & TVA polyps, diverticulosis 04/29/2015- normal " H/O esophagogastroduodenoscopy (Chronic) " 03/15/2014- mild-mod inflammation " Family History Other Family history non-contributory Social History Preferred Language: Khmer Communication Ability: Effective 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 Physical Exam Vital Signs (Past 24 Hours): Last Vital Signs Temp 36.8 C 12/31/18 14:13 Pulse 78 12/31/18 14:13 Resp 21 12/31/18 13:48 BP 158/85 H 12/31/18 14:13 Pulse Ox 98 12/31/18 14:13 Physical Exam: General: NAD, AAO x3, well nourished. Obese. HEENT: Normocephalic. Atraumatic. Conjunctiva pink, no scleral icterus. Neck: No carotid bruits, the carotid upstrokes are brisk. No JVD. No HJR Heart: Regular normal S-1 and S-2 no S-3 or S-4 gallop. No murmurs or rub appreciated. PMI is not displaced. No RV heave. Lungs: Clear bilateral without rales , rhonchi, or wheeze. Abdomen: Normal bowel sounds. Mildly distended. Nontender. No masses or organomegaly. No abdominal bruits. Extremities: 1-2+ bilateral pedal and pretibial edema. No clubbing, cyanosis. Pulses: radial=2/4, Dorsalis pedis =2/4, posterior tibial=2/4. Neuro: Cranial nerves grossly intact. No focal motor deficit.
[2018-12-31] MEDS: HydrALAZINE TAB 50 MG TAB PO SCH ×2 (15:41→20:09)
[2018-12-31] MEDS: HEPARIN SOD 5,000 UNIT/0.5 ML VIAL SQ SCH ×2 (15:51→21:14)
--- NOTE | 2018-12-31 16:13 | Emergency Department Note ---
Entered by Goldy Leonard acting as a scribe for Jin Diamond DO History of Present Illness General Chief complaint: Dizziness Stated complaint: sob/edema Time Seen by Provider: 12/31/18 09:21 Source: patient History of Present Illness Onset (ago): hour(s) (this morning) Location: head (global), upper extremity (global) and lower extremity (global) Pain Consistency: + other (persistent) Quality: + other (weakness) Exacerbated By: + other (attempting to stand or walk) Associated symptoms: + other (intermittent dizziness at baseline; no changes in chronic shortness of breath); no chest pain The patient is a 73 year old male who presents to the Emergency Room with complaints of persistent generalized weakness worsening this morning. The patient reports that he was unable to stand from his bedside commode this morning. He states that yesterday he was having difficulty walking due to weakness, and he feels that he has developed more fluid in the legs. He notes that for about 20 minutes last night and this morning he developed dizziness and felt like the room was spinning, but he states that these symptoms are not new. He denies chest pain, abdominal pain, urinary symptoms, or changes in his chronic shortness of breath. He notes that his last bowel movement was yesterday and was normal. He states that he has been using a walker for the past month. He states that his weight is normally around 290 pounds and he weighs himself every day, but he did not today. He reports a history of COPD. The nurse states that he was evaluated two weeks ago with CHF, and he chronically wears two liters of supplemental oxygen. Home Medications Home Medications Medication Instructions Recorded Confirmed Type allopurinol 300 mg PO HS 11/30/18 12/31/18 History aspirin 81 mg PO QAM 11/30/18 12/31/18 History atorvastatin 20 mg PO HS 11/30/18 12/31/18 History clonazepam 1 mg PO BID PRN 11/30/18 12/31/18 History ferrous sulfate [iron] 325 mg PO BID 11/30/18 12/31/18 History glipizide 5 mg PO BID 11/30/18 12/31/18 History hydralazine 50 mg PO TID 11/30/18 12/31/18 History insulin detemir U-100 29 unit SUBCUT HS 11/30/18 12/31/18 History omeprazole 40 mg PO QAM 11/30/18 12/31/18 History paroxetine HCl 40 mg PO QAM 11/30/18 12/31/18 History potassium chloride 20 meq PO BID 11/30/18 12/31/18 History isosorbide dinitrate 40 mg PO TID@0700,1200,1700 30 12/08/18 12/31/18 Rx Days #60 tab metoprolol succinate 100 mg PO BID 30 Days #120 tab 12/08/18 12/31/18 Rx sennosides [Senokot] 8.6 mg PO QAM 30 Days #30 tab 12/08/18 12/31/18 Rx albuterol sulfate [Ventolin HFA] 2 puff INHALATION Q4H PRN 12/31/18 12/31/18 History ipratropium-albuterol 3 ml INHALATION Q6H 12/31/18 12/31/18 History polyethylene glycol 3350 17 g PO DAILY 12/31/18 12/31/18 History torsemide 40 mg PO BID 12/31/18 12/31/18 History trazodone 50 mg PO HS 12/31/18 12/31/18 History Allergies Allergy/AdvReac Type Severity Reaction Status Date / Time minoxidil Allergy Intermediate RASH Verified 12/31/18 09:43 venlafaxine Allergy Intermediate HTN, SHAKEY Verified 12/31/18 09:43 amlodipine Allergy Unknown Unknown Verified 12/31/18 09:43 clonidine AdvReac Unknown INTOLERANT Verified 12/31/18 09:43 Past Med/Surg History Medical History Renal cyst (Chronic) Obstructive sleep apnea on CPAP (Chronic) Gout (Chronic) Dyslipidemia (Chronic) Restless leg syndrome (Chronic) GI bleed (Resolved 03/14/14) Anxiety (Chronic) Depression (Chronic) Poorly-controlled hypertension (Acute) Tremor (Acute) Essential tremor (Chronic) Restrictive airway disease (Chronic) SOB (shortness of breath) Surgical History H/O colonoscopy with polypectomy (Resolved) "2012 polyps, adenomatous" History of pericardiotomy (Resolved) S/P tonsillectomy and adenoidectomy (Chronic) H/O colonoscopy (Chronic) " 04/09/2014- adenomatous & TVA polyps, diverticulosis 04/29/2015- normal " H/O esophagogastroduodenoscopy (Chronic) " 03/15/2014- mild-mod inflammation " Family History Other Family history non-contributory Social History Preferred Language: [place] Communication Ability: Effective 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 and A total of 10 systems reviewed and were otherwise negative Physical Exam Vital Signs Vital Signs - 24 hr 12/31/18 08:53 12/31/18 08:54 12/31/18 08:59 Temperature 36.8 C Temperature Source Oral Sepsis Recent Fever Within 48 Hours No Sepsis New/Unexplained Change in Mental Status No Sepsis Action Taken by Nursing No Action Required Pulse Rate - Lying Pulse Rate - Sitting Pulse Rate 83 86 86 Pulse Rate [Apical] 86 Pulse Rate from SpO2 Sensor 86 Pulse Rhythm Regular Pulse Rhythm [Apical] Pulse Strength [Apical] Respiratory Rate 15 24 26 H Respiratory Effort / Characteristics Non-Labored Spontaneous Respiratory Depth Normal Respiratory Pattern Regular Blood Pressure - Lying Blood Pressure - Sitting Blood Pressure 129/65 129/65 Blood Pressure [Left Arm] 129/65 Blood Pressure Mean 86 86 Blood Pressure Mean [Left Arm] 86 Blood Pressure Position Sitting Blood Pressure Position [Left Arm] Sitting Pulse Oximetry 94 95 Oxygen Delivery Method Nasal Cannula Oxygen Flow Rate 2 12/31/18 09:00 12/31/18 09:15 12/31/18 09:27 Temperature Temperature Source Sepsis Recent Fever Within 48 Hours Sepsis New/Unexplained Change in Mental Status Sepsis Action Taken by Nursing Pulse Rate - Lying Pulse Rate - Sitting Pulse Rate 84 82 Pulse Rate [Apical] 81 Pulse Rate from SpO2 Sensor 84 82 Pulse Rhythm Pulse Rhythm [Apical] Pulse Strength [Apical] Respiratory Rate 26 H 24 27 H Respiratory Effort / Characteristics Non-Labored Spontaneous Respiratory Depth Normal Respiratory Pattern Regular Blood Pressure - Lying Blood Pressure - Sitting Blood Pressure Blood Pressure [Left Arm] 121/61 Blood Pressure Mean Blood Pressure Mean [Left Arm] 81 Blood Pressure Position Blood Pressure Position [Left Arm] Sitting Pulse Oximetry 95 94 94 Oxygen Delivery Method Nasal Cannula Oxygen Flow Rate 2 12/31/18 09:28 12/31/18 09:30 12/31/18 09:45 Temperature Temperature Source Sepsis Recent Fever Within 48 Hours Sepsis New/Unexplained Change in Mental Status Sepsis Action Taken by Nursing Pulse Rate - Lying 78 Pulse Rate - Sitting 80 Pulse Rate 81 82 80 Pulse Rate [Apical] Pulse Rate from SpO2 Sensor 81 82 75 Pulse Rhythm Pulse Rhythm [Apical] Pulse Strength [Apical] Respiratory Rate 25 H 17 17 Respiratory Effort / Characteristics Respiratory Depth Respiratory Pattern Blood Pressure - Lying 109/60 Blood Pressure - Sitting 107/59 L Blood Pressure 121/62 123/64 109/60 Blood Pressure [Left Arm] Blood Pressure Mean 81 83 76 Blood Pressure Mean [Left Arm] Blood Pressure Position Blood Pressure Position [Left Arm] Pulse Oximetry 94 94 94 Oxygen Delivery Method Oxygen Flow Rate 12/31/18 09:46 12/31/18 09:47 12/31/18 09:56 Temperature Temperature Source Sepsis Recent Fever Within 48 Hours Sepsis New/Unexplained Change in Mental Status Sepsis Action Taken by Nursing Pulse Rate - Lying Pulse Rate - Sitting Pulse Rate 81 80 Pulse Rate [Apical] 81 Pulse Rate from SpO2 Sensor 81 80 Pulse Rhythm Pulse Rhythm [Apical] Pulse Strength [Apical] Respiratory Rate 25 H 24 27 H Respiratory Effort / Characteristics Non-Labored Spontaneous Respiratory Depth Normal Respiratory Pattern Regular Blood Pressure - Lying Blood Pressure - Sitting Blood Pressure 109/60 107/59 L Blood Pressure [Left Arm] 107/59 L Blood Pressure Mean 76 75 Blood Pressure Mean [Left Arm] 75 Blood Pressure Position Blood Pressure Position [Left Arm] Sitting Pulse Oximetry 96 95 94 Oxygen Delivery Method Nasal Cannula Oxygen Flow Rate 2 12/31/18 10:10 12/31/18 10:15 12/31/18 10:30 Temperature Temperature Source Sepsis Recent Fever Within 48 Hours Sepsis New/Unexplained Change in Mental Status Sepsis Action Taken by Nursing Pulse Rate - Lying Pulse Rate - Sitting Pulse Rate 83 83 84 Pulse Rate [Apical] Pulse Rate from SpO2 Sensor 83 83 84 Pulse Rhythm Pulse Rhythm [Apical] Pulse Strength [Apical] Respiratory Rate 23 4 L 7 L Respiratory Effort / Characteristics Respiratory Depth Respiratory Pattern Blood Pressure - Lying Blood Pressure - Sitting Blood Pressure Blood Pressure [Left Arm] Blood Pressure Mean Blood Pressure Mean [Left Arm] Blood Pressure Position Blood Pressure Position [Left Arm] Pulse Oximetry 97 98 99 Oxygen Delivery Method Oxygen Flow Rate 12/31/18 10:45 12/31/18 10:55 12/31/18 10:57 Temperature Temperature Source Sepsis Recent Fever Within 48 Hours Sepsis New/Unexplained Change in Mental Status Sepsis Action Taken by Nursing Pulse Rate - Lying Pulse Rate - Sitting Pulse Rate 83 84 Pulse Rate [Apical] 83 Pulse Rate from SpO2 Sensor 83 83 Pulse Rhythm Pulse Rhythm [Apical] Pulse Strength [Apical] Respiratory Rate 0 L 24 11 L Respiratory Effort / Characteristics Non-Labored Spontaneous Respiratory Depth Normal Respiratory Pattern Regular Blood Pressure - Lying Blood Pressure - Sitting Blood Pressure 122/57 L Blood Pressure [Left Arm] 122/57 L Blood Pressure Mean 78 Blood Pressure Mean [Left Arm] 78 Blood Pressure Position Blood Pressure Position [Left Arm] Sitting Pulse Oximetry 96 100 99 Oxygen Delivery Method Nasal Cannula Oxygen Flow Rate 2 12/31/18 11:00 12/31/18 11:12 12/31/18 11:15 Temperature Temperature Source Sepsis Recent Fever Within 48 Hours Sepsis New/Unexplained Change in Mental Status Sepsis Action Taken by Nursing Pulse Rate - Lying Pulse Rate - Sitting Pulse Rate 83 82 Pulse Rate [Apical] 84 Pulse Rate from SpO2 Sensor 83 82 Pulse Rhythm Pulse Rhythm [Apical] Pulse Strength [Apical] Respiratory Rate 0 L 24 21 Respiratory Effort / Characteristics Non-Labored Spontaneous Respiratory Depth Normal Respiratory Pattern Regular Blood Pressure - Lying Blood Pressure - Sitting Blood Pressure 113/63 Blood Pressure [Left Arm] 113/63 Blood Pressure Mean 79 Blood Pressure Mean [Left Arm] 79 Blood Pressure Position Blood Pressure Position [Left Arm] Sitting Pulse Oximetry 99 99 99 Oxygen Delivery Method Nasal Cannula Oxygen Flow Rate 2 12/31/18 11:30 12/31/18 11:45 12/31/18 11:59 Temperature Temperature Source Sepsis Recent Fever Within 48 Hours Sepsis New/Unexplained Change in Mental Status Sepsis Action Taken by Nursing Pulse Rate - Lying Pulse Rate - Sitting Pulse Rate 81 81 Pulse Rate [Apical] 80 Pulse Rate from SpO2 Sensor 82 81 Pulse Rhythm Pulse Rhythm [Apical] Pulse Strength [Apical] Respiratory Rate 25 H 15 24 Respiratory Effort / Characteristics Non-Labored Spontaneous Respiratory Depth Normal Respiratory Pattern Regular Blood Pressure - Lying Blood Pressure - Sitting Blood Pressure 120/69 Blood Pressure [Left Arm] 120/69 Blood Pressure Mean 86 Blood Pressure Mean [Left Arm] 86 Blood Pressure Position Blood Pressure Position [Left Arm] Sitting Pulse Oximetry 100 100 100 Oxygen Delivery Method Nasal Cannula Oxygen Flow Rate 2 12/31/18 12:00 12/31/18 12:15 12/31/18 12:25 Temperature Temperature Source Sepsis Recent Fever Within 48 Hours Sepsis New/Unexplained Change in Mental Status Sepsis Action Taken by Nursing Pulse Rate - Lying Pulse Rate - Sitting Pulse Rate 80 80 Pulse Rate [Apical] Pulse Rate from SpO2 Sensor 80 80 Pulse Rhythm Pulse Rhythm [Apical] Pulse Strength [Apical] Respiratory Rate 21 24 Respiratory Effort / Characteristics Spontaneous Respiratory Depth Normal Respiratory Pattern Regular Blood Pressure - Lying Blood Pressure - Sitting Blood Pressure 121/68 Blood Pressure [Left Arm] Blood Pressure Mean 85 Blood Pressure Mean [Left Arm] Blood Pressure Position Blood Pressure Position [Left Arm] Pulse Oximetry 99 100 Oxygen Delivery Method Nasal Cannula Oxygen Flow Rate 2 12/31/18 12:30 12/31/18 12:31 12/31/18 12:45 Temperature Temperature Source Sepsis Recent Fever Within 48 Hours Sepsis New/Unexplained Change in Mental Status Sepsis Action Taken by Nursing Pulse Rate - Lying Pulse Rate - Sitting Pulse Rate 80 80 78 Pulse Rate [Apical] Pulse Rate from SpO2 Sensor 79 80 78 Pulse Rhythm Pulse Rhythm [Apical] Pulse Strength [Apical] Respiratory Rate 14 20 21 Respiratory Effort / Characteristics Respiratory Depth Respiratory Pattern Blood Pressure - Lying Blood Pressure - Sitting Blood Pressure 116/70 Blood Pressure [Left Arm] Blood Pressure Mean 85 Blood Pressure Mean [Left Arm] Blood Pressure Position Blood Pressure Position [Left Arm] Pulse Oximetry 99 100 100 Oxygen Delivery Method Oxygen Flow Rate 12/31/18 12:49 12/31/18 13:34 12/31/18 13:48 Temperature 36.8 C Temperature Source Oral Sepsis Recent Fever Within 48 Hours Sepsis New/Unexplained Change in Mental Status Sepsis Action Taken by Nursing Pulse Rate - Lying Pulse Rate - Sitting Pulse Rate 76 Pulse Rate [Apical] 78 76 Pulse Rate from SpO2 Sensor Pulse Rhythm Pulse Rhythm [Apical] Pulse Strength [Apical] Respiratory Rate 21 21 21 Respiratory Effort / Characteristics Non-Labored Spontaneous Non-Labored Spontaneous Respiratory Depth Normal Normal Respiratory Pattern Regular Regular Blood Pressure - Lying Blood Pressure - Sitting Blood Pressure 111/62 Blood Pressure [Left Arm] 116/70 111/62 Blood Pressure Mean Blood Pressure Mean [Left Arm] 85 78 Blood Pressure Position Blood Pressure Position [Left Arm] Sitting Sitting Pulse Oximetry 100 100 100 Oxygen Delivery Method Nasal Cannula Nasal Cannula Nasal Cannula Oxygen Flow Rate 2 2 2 12/31/18 14:13 12/31/18 15:27 12/31/18 15:44 Temperature 36.8 C 36.2 C L Temperature Source Oral Oral Sepsis Recent Fever Within 48 Hours Sepsis New/Unexplained Change in Mental Status Sepsis Action Taken by Nursing Pulse Rate - Lying Pulse Rate - Sitting Pulse Rate 76 Pulse Rate [Apical] 78 73 85 Pulse Rate from SpO2 Sensor Pulse Rhythm Pulse Rhythm [Apical] Regular Pulse Strength [Apical] Normal Respiratory Rate 22 17 Respiratory Effort / Characteristics Non-Labored Spontaneous SOB on Exertion Spontaneous Respiratory Depth Normal Normal Respiratory Pattern Regular Blood Pressure - Lying Blood Pressure - Sitting Blood Pressure Blood Pressure [Left Arm] 158/85 H 147/84 H Blood Pressure Mean Blood Pressure Mean [Left Arm] 109 105 Blood Pressure Position Blood Pressure Position [Left Arm] Lying Lying Pulse Oximetry 98 95 97 Oxygen Delivery Method Nasal Cannula Nasal Cannula Nasal Cannula Oxygen Flow Rate 2 2 2 GENERAL: Sitting up in bed on 2L nasal cannula, alert, morbidly obese, slightly diaphoretic EYE EXAM: normal conjunctiva. PERRL and EOM's intact. OROPHARYNX: no exudate, no erythema, lips, buccal mucosa, and tongue normal and mucous membranes are moist NECK: supple, no nuchal rigidity, no adenopathy, non-tender LUNGS: Clear to auscultation. Normal chest wall mechanics HEART: no murmurs, S1 normal and S2 normal ABDOMEN: abdomen soft, non-tender, normo-active bowel, sounds, no masses, no rebound or guarding. BACK: Back is symmetrical on inspection and there is no deformity, no midline tenderness, no CVA tenderness. SKIN: no rashes and no bruising UPPER EXTREMITIES: upper extremities are grossly normal. LOWER EXTREMITIES: No pitting edema. NEURO EXAM: Normal sensorium, cranial nerves II-XII intact, normal speech, no weakness of arms, no weakness of legs. No drift. Finger to nose intact. Sensation intact. Course ED COURSE: Vital signs were reviewed and showed tachypnea The patients medical record was reviewed The above diagnostic studies were performed and reviewed. ED treatments and interventions as stated above. 0926: The patient was evaluated in room A2. A complete history and physical examination was performed. 1058: I updated the patient on results. 1110: I consulted Laney Massey PA-C: [facility] Hospitalist with Dr. Sawyer. The patient will be reevaluated for hospitalization. Based on the patients age, coexisting illnesses, exam and lab findings the decision to treat as an inpatient was made. The patient remained stable while under my care. The patient will be evaluated for further management. Consultations Consultation #1: I consulted Laney Massey PA-C: [facility] Hospitalist with Dr. Sawyer. The patient will be reevaluated for hospitalization. Time: 11:10 Administered Medications Albuterol (Duoneb) 3 ml INH Q6R GONZALO Stop: 01/30/19 14:12 Last Admin: 12/31/18 15:27 Dose: 3 ml Documented by: [id number] Heparin Sodium (Porcine) (Heparin Sodium (Porcine)) 5,000 units SQ Q8 GONZALO Stop: 01/30/19 14:12 Last Admin: 12/31/18 15:51 Dose: 5,000 units Documented by: [id number] Cosigned by: [id number] Hydralazine HCl (Apresoline) 25 mg PO TID GONZALO Stop: 01/30/19 14:12 Last Admin: 12/31/18 15:41 Dose: 25 mg Documented by: [id number] Discontinued Medications Furosemide (Lasix) 20 mg IV NOW STA Stop: 12/31/18 14:14 Last Admin: 12/31/18 15:51 Dose: 20 mg Documented by: [id number] Sodium Chloride (Nss) 500 mls @ 999 mls/hr IV .Q31M GONZALO Stop: 12/31/18 10:15 Last Infusion: 12/31/18 10:22 Dose: 0 mls/hr Documented by: [id number] Admin: 12/31/18 09:51 Dose: 999 mls/hr Documented by: [id number] Ceftriaxone Sodium (Rocephin) 1,000 mg in 50 mls @ 100 mls/hr IV NOW STA Stop: 12/31/18 11:24 Last Infusion: 12/31/18 11:40 Dose: 0 mls/hr Documented by: [id number] Admin: 12/31/18 11:10 Dose: 100 mls/hr Documented by: [id number] Medical Decision Making Differential Diagnosis Differential Diagnosis includes but is not limited to dehydration, stroke, anemia, hypoglycemia, hyponatremia, hypernatremia, urinary tract infection, pneumonia, bronchitis, sepsis, gastroenteritis, additional abdominal pathology, metabolic abnormalities and infections. Medical Records Attestation: I reviewed the patient's medical records. Home Medications Current Medication List: was personally reviewed by me Laboratory Data Attestation: I reviewed the patient's lab results. Result diagrams: 12/31/18 09:40 12/31/18 09:40 Lab Results 12/31/18 12/31/18 12/31/18 Range/Units 09:40 09:40 09:40 WBC 10.54 (4.8-10.8) K/uL RBC 4.17 L (4.7-6.1) M/uL Hgb 11.7 L (14.0-18.0) g/dL Hct 37.8 L (42-52) % MCV 90.6 (80-100) fL MCH 28.1 (25-34) pg MCHC 31.0 L (32-36) g/dL RDW Std Deviation 61.8 H (36.4-46.3) fL RDW Coeff of Alfonso 18.4 H (11.5-14.5) % Plt Count 194 (130-400) K/uL MPV 9.9 (7.4-10.4) fL Immature Gran % (Auto) 0.3 % Neut % (Auto) 74.7 % Lymph % (Auto) 10.9 % Mcculloch % (Auto) 7.3 % Eos % (Auto) 6.7 % Baso % (Auto) 0.1 % Immature Gran # (Auto) 0.03 H (0.00-0.02) K/uL Neut # (Auto) 7.87 H (1.4-6.5) K/uL Lymph # (Auto) 1.15 L (1.2-3.4) K/uL Mcculloch # (Auto) 0.77 H (0.11-0.59) K/uL Eos # (Auto) 0.71 H (0-0.5) K/uL Baso # (Auto) 0.01 (0-0.2) K/uL PT 10.1 (9.0-12.0) Seconds INR 1.0 (0.9-1.1) VBG pH (7.36-7.41) VBG pCO2 (38-50) mmHg VBG pO2 mmHg VBG HCO3 mmol/L VBG O2 Saturation % VBG Base Excess mEq/L Barometric Pressure mm/Hg Sodium 139 (136-145) mmol/L Potassium 3.8 (3.5-5.1) mmol/L Chloride 101 (98-107) mmol/L Carbon Dioxide 32 (21-32) mmol/L Anion Gap 6.0 (3-11) BUN 31 H (7-18) mg/dl Creatinine 1.46 H (0.6-1.4) mg/dl Est Cr Clr Drug Dosing 62.5 ml/min Est GFR ( Amer) 55.3 Est GFR (Non-Af Amer) 47.7 BUN/Creatinine Ratio 21.0 H (10-20) Glucose 152 H (70-99) mg/dl POC Glucose (70-99) Calcium 8.8 (8.5-10.1) mg/dl Total Bilirubin 0.6 (0.2-1) mg/dl AST 9 L (15-37) U/L ALT 18 (12-78) U/L Alkaline Phosphatase 92 (45-117) U/L Troponin I < 0.015 (0-0.045) ng/ml NT-Pro-B Natriuret Pep (0-900) pg/ml Total Protein 6.6 (6.4-8.2) gm/dl Albumin 3.0 L (3.4-5.0) gm/dl Globulin 3.6 (2.5-4.0) gm/dl Albumin/Globulin Ratio 0.8 L (0.9-2) Procalcitonin (0-0.5) ng/ml 12/31/18 12/31/18 12/31/18 Range/Units 09:40 09:40 09:48 WBC (4.8-10.8) K/uL RBC (4.7-6.1) M/uL Hgb (14.0-18.0) g/dL Hct (42-52) % MCV (80-100) fL MCH (25-34) pg MCHC (32-36) g/dL RDW Std Deviation (36.4-46.3) fL RDW Coeff of Alfonso (11.5-14.5) % Plt Count (130-400) K/uL MPV (7.4-10.4) fL Immature Gran % (Auto) % Neut % (Auto) % Lymph % (Auto) % Mcculloch % (Auto) % Eos % (Auto) % Baso % (Auto) % Immature Gran # (Auto) (0.00-0.02) K/uL Neut # (Auto) (1.4-6.5) K/uL Lymph # (Auto) (1.2-3.4) K/uL Mcculloch # (Auto) (0.11-0.59) K/uL Eos # (Auto) (0-0.5) K/uL Baso # (Auto) (0-0.2) K/uL PT (9.0-12.0) Seconds INR (0.9-1.1) VBG pH 7.37 (7.36-7.41) VBG pCO2 57 H (38-50) mmHg VBG pO2 27 mmHg VBG HCO3 32 mmol/L VBG O2 Saturation < 60.0 % VBG Base Excess 5.6 mEq/L Barometric Pressure 732.2 mm/Hg Sodium (136-145) mmol/L Potassium (3.5-5.1) mmol/L Chloride (98-107) mmol/L Carbon Dioxide (21-32) mmol/L Anion Gap (3-11) BUN (7-18) mg/dl Creatinine (0.6-1.4) mg/dl Est Cr Clr Drug Dosing ml/min Est GFR ( Amer) Est GFR (Non-Af Amer) BUN/Creatinine Ratio (10-20) Glucose (70-99) mg/dl POC Glucose (70-99) Calcium (8.5-10.1) mg/dl Total Bilirubin (0.2-1) mg/dl AST (15-37) U/L ALT (12-78) U/L Alkaline Phosphatase (45-117) U/L Troponin I (0-0.045) ng/ml NT-Pro-B Natriuret Pep 703 (0-900) pg/ml Total Protein (6.4-8.2) gm/dl Albumin (3.4-5.0) gm/dl Globulin (2.5-4.0) gm/dl Albumin/Globulin Ratio (0.9-2) Procalcitonin 0.19 (0-0.5) ng/ml 12/31/18 Range/Units 14:31 WBC (4.8-10.8) K/uL RBC (4.7-6.1) M/uL Hgb (14.0-18.0) g/dL Hct (42-52) % MCV (80-100) fL MCH (25-34) pg MCHC (32-36) g/dL RDW Std Deviation (36.4-46.3) fL RDW Coeff of Alfonso (11.5-14.5) % Plt Count (130-400) K/uL MPV (7.4-10.4) fL Immature Gran % (Auto) % Neut % (Auto) % Lymph % (Auto) % Mcculloch % (Auto) % Eos % (Auto) % Baso % (Auto) % Immature Gran # (Auto) (0.00-0.02) K/uL Neut # (Auto) (1.4-6.5) K/uL Lymph # (Auto) (1.2-3.4) K/uL Mcculloch # (Auto) (0.11-0.59) K/uL Eos # (Auto) (0-0.5) K/uL Baso # (Auto) (0-0.2) K/uL PT (9.0-12.0) Seconds INR (0.9-1.1) VBG pH (7.36-7.41) VBG pCO2 (38-50) mmHg VBG pO2 mmHg VBG HCO3 mmol/L VBG O2 Saturation % VBG Base Excess mEq/L Barometric Pressure mm/Hg Sodium (136-145) mmol/L Potassium (3.5-5.1) mmol/L Chloride (98-107) mmol/L Carbon Dioxide (21-32) mmol/L Anion Gap (3-11) BUN (7-18) mg/dl Creatinine (0.6-1.4) mg/dl Est Cr Clr Drug Dosing ml/min Est GFR ( Amer) Est GFR (Non-Af Amer) BUN/Creatinine Ratio (10-20) Glucose (70-99) mg/dl POC Glucose 126 H (70-99) Calcium (8.5-10.1) mg/dl Total Bilirubin (0.2-1) mg/dl AST (15-37) U/L ALT (12-78) U/L Alkaline Phosphatase (45-117) U/L Troponin I (0-0.045) ng/ml NT-Pro-B Natriuret Pep (0-900) pg/ml Total Protein (6.4-8.2) gm/dl Albumin (3.4-5.0) gm/dl Globulin (2.5-4.0) gm/dl Albumin/Globulin Ratio (0.9-2) Procalcitonin (0-0.5) ng/ml Imaging Data Radiologist's Impression: Radiology results as stated below per my review and the radiologist's interpretation: XR chest 1V portable CLINICAL HISTORY: dizzy dyspnea COMPARISON STUDY: 11/30/2018 FINDINGS: Chronic pleural and parenchymal change left base. Small superimposed left basilar infiltrate. Mild chronic prominence pulmonary vasculature. Bowel stable cardiomegaly. IMPRESSION: Small parenchymal infiltrate left base superimposed upon chronic pleural and parenchymal change. The above report was generated using voice recognition software. It may contain grammatical, syntax or spelling errors. Electronically signed by: Lalo Chambers M.D. 12/31/2018 9:[address] head/brain wo con CT DOSE: 773.57 mGy.cm HISTORY: Mental status change dizzy TECHNIQUE: Multiaxial CT images of the head were performed without the use of intravenous contrast. A dose lowering technique was utilized adhering to the principles of ALARA. Comparison: 11/30/2018 Findings: The paranasal sinuses and mastoid air cells are clear. The calvarium and skull base are intact. The ventricles and sulci are within normal limits. There is no mass, hematoma, midline shift, or acute infarct. Considerable chronic small vessel change. Impression: No acute intracranial abnormality. Extensive chronic small vessel change of aging. The above report was generated using voice recognition software. It may contain grammatical, syntax or spelling errors. Electronically signed by: Lalo Chambers M.D. 12/31/2018 10:08 AM ECG Data Attestation: I personally reviewed and interpreted this ECG as follows: Indication: weakness Rate (beats per minute): 86 Rhythm: sinus rhythm Findings: + other (normal axis; T-wave flattening laterally) and + T-wave inversion (high lateral leads) Comparison ECG Date: from (12/02/18) Change: no significant change Blood Pressure Blood Pressure Findings: Normal blood pressure Blood Pressure Disposition: did not require urgent referral MDM Narrative Patient is a 73-year-old male who presents the ER for dizziness, shortness of breath and weakness. He was unable to get up from the toilet this morning. He is on chronically 2 L nasal cannula. Does have a history of a KI diabetes hypertension and STEMI and CHF. Labs were obtained and showed mild anemia without any significant leukocytosis. INR was unremarkable. VBG with a slightly elevated CO2. BMP along with LFTs bilirubin and troponin were unremarkable. EKG was unchanged from previous. Chest x-ray with a questionable new infiltrate. He was covered with IV antibiotics admitted to the hospital for further workup. Impression & Plan Weakness, Pneumonia Discharge Plan Visit Data *Final* Discharge Date/Time: 12/31/18 13:48 Chief Complaint: Dizziness Stated Complaint: sob/edema ED Provider: Jin Diamond Discharge Problem: Weakness, Pneumonia Patient Disposition: Admitted As Inpatient Discharge Instructions Interventions: ED Discharge Assessment Last Done: 12/31/18 13:48 Discharge Problem: Pneumonia Qualifiers: Pneumonia type: due to unspecified organism Laterality: left Lung location: unspecified part of lung Qualified Code(s): J18.9 - Pneumonia, unspecified organism The scribe's documentation has been prepared under my direction and personally reviewed by me in its entirety. I confirm that the note above accurately reflects all work, treatment, procedures, and medical decision making performed by me.
[2018-12-31] MEDS: INSULIN ASPART 100 UNITS/ML 3 ML PEN SC SCH ×2 (17:03→21:14)
[2018-12-31] MEDS: ISOSORBIDE DINITRATE 20 MG TAB PO SCH (17:03)
[2018-12-31] MEDS: POTASSIUM CHLORIDE 20 MEQ TABCR PO SCH (20:10)
[2018-12-31] MEDS: METOPROLOL SUCC 50MG EXT REL TAB PO SCH (20:10)
[2018-12-31] MEDS: TRAZODONE HCL 50 MG TAB PO SCH (20:10)
[2018-12-31] MEDS: ALLOPURINOL 300 MG TAB PO SCH (20:10)
[2018-12-31] MEDS: FERROUS SULFATE 325 MG TAB PO SCH (20:10)
[2018-12-31] MEDS: ATORVASTATIN 20 MG TAB PO SCH (20:11)
[2018-12-31] MEDS: FUROSEMIDE 60 MG in SYRINGE 0 ML IV SCH (20:42)
[2018-12-31] MEDS ORDERED: FUROSEMIDE 40 MG/4 ML VIAL IV SCH (21:00)
[2018-12-31] MEDS: INSULIN GLARGINE SOLOSTAR 100 UNITS/ML 3 ML PEN SC SCH (21:13)
[2019-01-01] MEDS: ALBUT/IPRATROP 3MG/0.5MG NEB 3 ML VIAL INH SCH ×4 (01:32→19:14)
[2019-01-01] MEDS: HEPARIN SOD 5,000 UNIT/0.5 ML VIAL SQ SCH ×3 (05:54→20:43)
[2019-01-01] MEDS: ISOSORBIDE DINITRATE 20 MG TAB PO SCH ×3 (05:54→16:59)
[2019-01-01 07:33] LABS: Hematocrit (blood only) 36.1 % (42-52); Hemoglobin 11.1 g/dL (14.0-18.0); Mean Corpuscular Hgb Conc 30.7 g/dL (32-36); Mean Corpuscular Volume 91.9 fL (80-100); Mean Platelet Volume 9.2 fL (7.4-10.4); Platelet Count 161 K/uL (130-400); RDW Coefficient of Variation 18.5 % (11.5-14.5); Red Blood Count 3.93 M/uL (4.7-6.1); White Blood Count 8.47 K/uL (4.8-10.8)
[2019-01-01] MEDS: POLYETHYLENE (MIRALAX) 17 GM PACK PO SCH (08:00)
[2019-01-01] MEDS: FERROUS SULFATE 325 MG TAB PO SCH ×2 (08:01→20:39)
[2019-01-01] MEDS: PARoxetine HCl 20 MG TAB PO SCH (08:01)
[2019-01-01] MEDS: SENNA 8.6 MG TAB PO SCH (08:01)
[2019-01-01] MEDS: ASPIRIN 81 MG ECTAB PO SCH (08:01)
[2019-01-01] MEDS: METOPROLOL SUCC 50MG EXT REL TAB PO SCH ×2 (08:01→20:40)
[2019-01-01] MEDS: HydrALAZINE TAB 50 MG TAB PO SCH ×3 (08:01→20:39)
[2019-01-01 08:02] LABS: BUN Creatinine Ratio 19.8 (10-20); Calcium 8.7 mg/dl (8.5-10.1); Creatinine Clr Calc Pharmacy 58.6 ml/min; Est GFR (African American) 58.2; Est GFR (Non-African American) 50.2; Potassium 3.8 mmol/L (3.5-5.1)
[2019-01-01] MEDS: POTASSIUM CHLORIDE 20 MEQ TABCR PO SCH ×2 (08:02→20:39)
[2019-01-01] MEDS: PANTOprazole 40 MG TAB PO SCH (08:02)
[2019-01-01] MEDS: FUROSEMIDE 60 MG in SYRINGE 0 ML IV SCH ×2 (08:03→20:39)
[2019-01-01] MEDS: INSULIN ASPART 100 UNITS/ML 3 ML PEN SC SCH ×4 (08:04→20:43)
[2019-01-01] MEDS: INSULIN GLARGINE SOLOSTAR 100 UNITS/ML 3 ML PEN SC SCH ×2 (08:05→20:44)
--- NOTE | 2019-01-01 11:14 | Cardiology Progress Note ---
Date of Service January 01, 2019 Assessment & Plan (1) Dizziness: Episode of dizziness likely vertigo. No recurrence since admission. Hydralazine and Isordil dosing reduced. Blood pressure has remained stable. (2) Acute on chronic diastolic heart failure: Nursing instructed to reweigh patient today as he is incontinent. Continue IV Lasix 60 mg twice daily. Follow daily weight, fluid balance, glomerular filtration rate, and electrolytes. Would not add Aldactone at this time due to CKD. (3) Hypertensive cardiovascular disease: Blood pressure stable. (4) Chronic right-sided congestive heart failure: Subjective Patient seen and examined at the bedside. Urinary incontinence noted therefore fluid balance is not well documented. A.m. weight appears to be an accurate. Patient reports significant diuresis, this confirmed via nursing as well. He is feeling much better. Edema improved. is present at bedside. Patient offers no other concerns/complaints at this time. Review of Systems All systems reviewed & are unremarkable except as noted in HPI & below Physical Exam Vital Signs (Past 24 Hours): Last Vital Signs Temp 36.3 C L 01/01/19 07:32 Pulse 86 01/01/19 08:00 Resp 20 01/01/19 07:32 BP 122/76 01/01/19 07:32 Pulse Ox 94 01/01/19 07:32 Physical Exam: General: NAD, AAO x3, well nourished. Obese. HEENT: Normocephalic. Atraumatic. Conjunctiva pink, no scleral icterus. Neck: No carotid bruits, the carotid upstrokes are brisk. No JVD. No HJR Heart: Regular normal S-1 and S-2 no S-3 or S-4 gallop. No murmurs or rub appreciated. PMI is not displaced. No RV heave. Lungs: Clear bilateral without rales , rhonchi, or wheeze. Abdomen: Normal bowel sounds. Mildly distended. Nontender. No masses or organomegaly. No abdominal bruits. Extremities: 1-2+ bilateral pedal and pretibial edema. No clubbing, cyanosis. Pulses: radial=2/4, Dorsalis pedis =2/4, posterior tibial=2/4. Neuro: Cranial nerves grossly intact. No focal motor deficit.
--- NOTE | 2019-01-01 15:08 | Hospitalist Progress Note ---
Date of Service January 01, 2019 Assessment & Plan (1) Dizziness: Dizziness: Vertigo Vs secondary to medications Negative Orthostatics No Presyncope/Syncope history Reports history of Tinnitus and hearing problems in right ear since [address] head: No acute intracranial findings. Extensive chronic small vessel change of aging. Monitor in Telemetry for arrhythmia Decrease Hydralazine from 50 mg to 25mg TID Decrease Isosorbide from 40mg to 20mg TID Fall precautions Meclizine PRN PT/OT eval May need ENT eval as outpatient Acute on Chronic diastolic CHF exacerbation Reports weight gain, MCG[place]AN, Orthopnea CXR : Small parenchymal infiltrate left base superimposed upon chronic pleural and parenchymal change. Last ECHO:Grade II diastolic dysfunction, EF: 65-70% in Nov 2018 Hold PO diuretics Continue IV Lasix 60mg BID Daily weight, I/Os, fluid restriction Low sodium diet Oxygen support PRN Monitor renal function/electrolytes Appreciate Cardiology Input Ambulatory dysfunction: CT head: No acute changes Uses walker at baseline PT/OT May need rehab placement Possible Left base infiltrate on CXR: Patient denies any cough, fever Normal Procalcitonin No Leukocytosis No plan to start Abx H/O UTI UA normal Patient denies any urinary symptoms DM II Last A1C: 5.8 Will hold oral diabetic meds ISS, basal Insulin, Accu checks, Diabetic diet Update A1C: pending HTN Stable Continue home medications CKD III Baseline Cr: Mid to high 1s Cr:1.46 Monitor renal function JT Continue home medications GERD Continue PPI RENE CPAP Qhs COPD Chronic Oxygen dependency: on 2 liters Continue Nebs Dyslipidemia Continue Stains Gout On Allopurinol Morbid Obesity BMI:48 DVT Px: Heparin SQ Code Status: Full Code Disposition: May need rehab placement Metal Grinder Consulted Subjective Patient is seen and examined at bedside Doing better today States dizziness has resolved Leg edema improving Denies chest pain, SOB, abd pain Family at bedside No other complaints Physical Exam Vital Signs (Past 24 Hours): Last Vital Signs Temp 36.3 C L 01/01/19 07:32 Pulse 76 01/01/19 13:33 Resp 16 01/01/19 13:33 BP 122/76 01/01/19 07:32 Pulse Ox 94 01/01/19 14:09 Physical Exam: Physical Exam: Vitals signs as noted above General Appearance:Morbidly Obese, no apparent distress Head: normocephalic, Atraumatic Eyes: normal inspection, EOMI Neck: supple, Trachea midline Respiratory/Chest: Decreased breath sounds, CTA Cardiovascular: S1, S2, No murmur Abdomen/GI:Soft, Non tender, Bowel sounds present Extremities/Musculoskelatal:normal inspection, 1+ B/L LE edema Neurologic/Psych:AAOX3, grossly no focal neurological deficits Skin: normal color, warm Results & Data Laboratory Results Short CBC 01/01/19 Range/Units 07:03 WBC 8.47 (4.8-10.8) K/uL Hgb 11.1 L (14.0-18.0) g/dL Hct 36.1 L (42-52) % Plt Count 161 (130-400) K/uL [facility] 01/01/19 07:03 Sodium 141 Potassium 3.8 Chloride 102 Carbon Dioxide 33 H BUN 28 H Creatinine 1.40 Glucose 138 H Calcium 8.7 Diagnostic Findings Short CBC 01/01/19 Range/Units 07:03 WBC 8.47 (4.8-10.8) K/uL Hgb 11.1 L (14.0-18.0) g/dL Hct 36.1 L (42-52) % Plt Count 161 (130-400) K/uL [facility] 01/01/19 07:03 Sodium 141 Potassium 3.8 Chloride 102 Carbon Dioxide 33 H BUN 28 H Creatinine 1.40 Glucose 138 H Calcium 8.7
[2019-01-01] MEDS: TRAZODONE HCL 50 MG TAB PO SCH (20:39)
[2019-01-01] MEDS: ATORVASTATIN 20 MG TAB PO SCH (20:40)
[2019-01-01] MEDS: ALLOPURINOL 300 MG TAB PO SCH (20:41)
[2019-01-02] MEDS: ALBUT/IPRATROP 3MG/0.5MG NEB 3 ML VIAL INH SCH ×3 (01:58→13:44)
[2019-01-02] MEDS: HEPARIN SOD 5,000 UNIT/0.5 ML VIAL SQ SCH ×2 (05:53→13:54)
[2019-01-02] MEDS: ISOSORBIDE DINITRATE 20 MG TAB PO SCH ×3 (05:55→17:15)
[2019-01-02 06:48] LABS: Estimated Average Glucose 120 mg/dl; Hemoglobin A1C 5.8 % (4.5-5.6)
[2019-01-02 07:24] LABS: Hematocrit (blood only) 36.1 % (42-52); Mean Corpuscular Hgb Conc 30.5 g/dL (32-36); Mean Corpuscular Volume 91.6 fL (80-100); Platelet Count 168 K/uL (130-400); RDW Coefficient of Variation 18.5 % (11.5-14.5); RDW Standard Deviation 62.2 fL (36.4-46.3); Red Blood Count 3.94 M/uL (4.7-6.1); White Blood Count 8.72 K/uL (4.8-10.8)
[2019-01-02 08:05] LABS: BUN Creatinine Ratio 16.5 (10-20); Calcium 8.8 mg/dl (8.5-10.1); Creatinine Clr Calc Pharmacy 63.7 ml/min; Est GFR (African American) 57.2; Est GFR (Non-African American) 49.3; Potassium 4.2 mmol/L (3.5-5.1)
[2019-01-02] MEDS: INSULIN ASPART 100 UNITS/ML 3 ML PEN SC SCH ×3 (08:39→17:18)
[2019-01-02] MEDS: POTASSIUM CHLORIDE 20 MEQ TABCR PO SCH (08:39)
[2019-01-02] MEDS: SENNA 8.6 MG TAB PO SCH (08:40)
[2019-01-02] MEDS: PANTOprazole 40 MG TAB PO SCH (08:40)
[2019-01-02] MEDS: PARoxetine HCl 20 MG TAB PO SCH (08:41)
[2019-01-02] MEDS: HydrALAZINE TAB 50 MG TAB PO SCH ×2 (08:42→13:52)
[2019-01-02] MEDS: FERROUS SULFATE 325 MG TAB PO SCH (08:42)
[2019-01-02] MEDS: METOPROLOL SUCC 50MG EXT REL TAB PO SCH (08:43)
[2019-01-02] MEDS: INSULIN GLARGINE SOLOSTAR 100 UNITS/ML 3 ML PEN SC SCH (08:44)
[2019-01-02] MEDS: ASPIRIN 81 MG ECTAB PO SCH (08:45)
[2019-01-02] MEDS: FUROSEMIDE 60 MG in SYRINGE 0 ML IV SCH (08:45)
[2019-01-02] MEDS: POLYETHYLENE (MIRALAX) 17 GM PACK PO SCH (08:46)
--- NOTE | 2019-01-02 09:21 | Cardiology Progress Note ---
Date of Service January 02, 2019 Assessment & Plan (1) Acute on chronic diastolic heart failure: Weight is down 6 pounds since admission. Renal function remained stable. Discussed continuation of intravenous Lasix for an additional 24 hours however, patient prefers discharge to home. Recommend transition to torsemide 40 mg twice daily with KCl 20 mEq twice daily for an additional 2 days, until Wednesday. Then he will resume torsemide 40 mg daily. Instructed to weigh himself on a daily basis. Hydralazine and Isordil doses reduced. He will require close follow-up of blood pressure and volume status at the heart failure clinic. Will arrange follow-up in 1 week. Sodium restriction advised. (2) Dizziness: Episode of dizziness likely vertigo. No recurrence since admission. Hydralazine and Isordil dosing reduced. Blood pressure has remained stable. (3) Hypertensive cardiovascular disease: Blood pressure stable. (4) Chronic right-sided congestive heart failure: Subjective Patient seen and examined at bedside. He is requesting discharge. Feeling much better from a cardiovascular standpoint. Isordil and hydralazine reduced on admission due to lightheadedness and dizziness. Patient treated with intravenous diuretic therapy with subsequent 6 pound weight loss since admission. Edema improved. Renal function remained stable. Patient offers no other concerns/complaints at this time. Review of Systems All systems reviewed & are unremarkable except as noted in HPI & below Physical Exam Vital Signs (Past 24 Hours): Last Vital Signs Temp 36.5 C 01/02/19 07:35 Pulse 77 01/02/19 07:35 Resp 19 01/02/19 07:35 BP 154/81 H 01/02/19 07:35 Pulse Ox 96 01/02/19 07:35 Physical Exam: General: NAD, AAO x3, well nourished. Obese. HEENT: Normocephalic. Atraumatic. Conjunctiva pink, no scleral icterus. Neck: No carotid bruits, the carotid upstrokes are brisk. No JVD. No HJR Heart: Regular n ormal S-1 and S-2 no S-3 or S-4 gallop. No murmurs or rub appreciated. PMI is not displaced. No RV heave. Lungs: Clear bilateral without rales , rhonchi, or wheeze. Abdomen: Normal bowel sounds. Mildly distended. Nontender. No masses or organomegaly. No abdominal bruits. Extremities: 1+ bilateral pedal and pretibial edema. No clubbing, cyanosis. Pulses: radial=2/4, Dorsalis pedis =2/4, posterior tibial=2/4. Neuro: Cranial nerves grossly intact. No focal motor deficit.
--- NOTE | 2019-01-02 14:17 | Hospitalist Progress Note ---
Date of Service January 02, 2019 Assessment & Plan (1) Dizziness: Dizziness: Vertigo Vs secondary to medications Negative Orthostatics No Presyncope/Syncope history Reports history of Tinnitus and hearing problems in right ear since [address] head: No acute intracranial findings. Extensive chronic small vessel change of aging. Monitor in Telemetry for arrhythmia Decrease Hydralazine from 50 mg to 25mg TID Decrease Isosorbide from 40mg to 20mg TID Fall precautions Meclizine PRN PT/OT eval Advised to follow up with ENT as outpatient Acute on Chronic diastolic CHF exacerbation Reports weight gain, [place]CG[place], Orthopnea CXR : Small parenchymal infiltrate left base superimposed upon chronic pleural and parenchymal change. Last ECHO:Grade II diastolic dysfunction, EF: 65-70% in Nov 2018 Hold PO diuretics Continue IV Lasix 60mg BID Daily weight, I/Os, fluid restriction Low sodium diet Oxygen support PRN Monitor renal function/electrolytes Appreciate Cardiology Input Plan to transition to Torsemide 40mg BID with Potassium supplements for 2 more days and then 40mg daily Ambulatory dysfunction: CT head: No acute changes Uses walker at baseline PT/OT Needs rehab placement Possible Left base infiltrate on CXR: Patient denies any cough, fever Normal Procalcitonin No Leukocytosis No plan to start Abx H/O UTI UA normal Patient denies any urinary symptoms DM II Last A1C: 5.8 Will hold oral diabetic meds ISS, basal Insulin, Accu checks, Diabetic diet Update A1C: 5.8 HTN Stable Continue home medications CKD III Baseline Cr: Mid to high 1s Cr:1.42 Monitor renal function JT Continue home medications GERD Continue PPI RENE CPAP Qhs COPD Chronic Oxygen dependency: on 2 liters Continue Nebs Dyslipidemia Continue Stains Gout On Allopurinol Morbid Obesity BMI:48 DVT Px: Heparin SQ Code Status: Full Code Disposition: Accepted at [facility] Public Speaking Teacher Consulted Subjective Patient is seen and examined at bedside Patient prefers to be discharged Leg edema improved Denies chest pain, SOB, abd pain, dizziness Family at bedside No other complaints Physical Exam Vital Signs (Past 24 Hours): Last Vital Signs Temp 36.6 C 01/02/19 11:24 Pulse 73 01/02/19 13:46 Resp 18 01/02/19 13:46 BP 158/76 H 01/02/19 11:24 Pulse Ox 96 01/02/19 13:46 Physical Exam: Physical Exam: Vitals signs as noted above General Appearance:Morbidly Obese, no apparent distress Head: normocephalic, Atraumatic Eyes: normal inspection, EOMI Neck: supple, Trachea midline Respiratory/Chest: Decreased breath sounds, CTA Cardiovascular: S1, S2, No murmur Abdomen/GI:Soft, Non tender, Bowel sounds present Extremities/Musculoskelatal:normal inspection, 1+ B/L LE edema Neurologic/Psych:AAOX3, grossly no focal neurological deficits Skin: normal color, warm Results & Data Laboratory Results Short CBC 01/02/19 Range/Units 06:59 WBC 8.72 (4.8-10.8) K/uL Hgb 11.0 L (14.0-18.0) g/dL Hct 36.1 L (42-52) % Plt Count 168 (130-400) K/uL BMP 01/02/19 06:59 Sodium 141 Potassium 4.2 Chloride 102 Carbon Dioxide 34 H BUN 24 H Creatinine 1.42 H Glucose 139 H Calcium 8.8
--- NOTE | 2019-01-02 14:33 | Discharge Summary ---
Date of Service January 02, 2019 Admission HPI Per Admitting Provider Patient is a 73-year-old male with history of Diastolic heart failure, DM II, HTN, CKD III, JT, GERD, RENE on CPAP, Chronic Oxygen dependency, COPD, Dyslipidemia, Gout, Morbid Obesity and other problems presents with history of dizziness, dyspnea on exertion, ambulatory dysfunction and weight gain. Patient was recently discharged from [facility] after being treated for CHF exacerbation. Patient states having dizziness which he describes as "room spinning" since yesterday. He states having tinnitus and has hearing problem in his right ear since 6 months duration. Patient used restroom this morning and was unable to get up and ambulate secondary to weakness in his legs which prompted him to come to ED. He uses walker to ambulate at baseline. He reports dyspnea on exertion, orthopnea, weight gain of about 4 pounds in last 5-6 days. He discussed about the same with his Carpet Floor Layer Apprentice who recommended to increase his Torsemide to 40 mg BID which he started taking since yesterday. He was discharged on Isosorbide during his prior admission but he has not been taking it secondary to unavailability at his pharmacy as per family. He started taking Isosorbide only since this morning. Reports Orthopnea but no PND. Denies any worsening of his chronic leg edema or increased supplemental oxygen requirement from his baseline. Denies any history of chest pain, cough, fever, chills, fall, head trauma, Syncope, headache, change in vision, slurred speech, nausea, vomiting, abdominal pain, diarrhea, dysuria, hematuria, increased Urinary frequency. Admission Exam Per Admitting Provider Physical Exam: Vitals signs as noted above General Appearance:Morbidly Obese, no apparent distress Head: normocephalic, Atraumatic Eyes: normal inspection, EOMI Neck: supple, Trachea midline Respiratory/Chest: Decreased breath sounds, Minimal basal crackles, No accessory muscle use Cardiovascular: S1, S2, No murmur Abdomen/GI:Soft, Non tender, Bowel sounds present Extremities/Musculoskelatal:normal inspection, 1+ B/L LE edema Neurologic/Psych:AAOX3, grossly no focal neurological deficits Skin: normal color, warm Principal Diagnosis Discharge Information Discharge Diagnosis Acute on Chronic diastolic CHF exacerbation Dizziness Likely vertigo Ambulatory dysfunction Discharge Goals Decrease discomfort,Improve disease control, Improve function Discharge Activity Limitations Resume your previous activity Discharge Data Allergies Allergy/AdvReac Type Severity Reaction Status Date / Time minoxidil Allergy Intermediate RASH Verified 12/31/18 09:43 venlafaxine Allergy Intermediate HTN, SHAKEY Verified 12/31/18 09:43 amlodipine Allergy Unknown Unknown Verified 12/31/18 09:43 clonidine AdvReac Unknown INTOLERANT Verified 12/31/18 09:43 Consultations 12/31/18 11:17 ED Decision to Admit Stat 12/31/18 14:13 Consult Cardiology Routine Consult Case Management - Discharge Planning Routine Procedures Performed CT head: No acute intracranial abnormality. Extensive chronic small vessel change of aging. CXR: Small parenchymal infiltrate left base superimposed upon chronic pleural and parenchymal change. Ordered Studies 12/31/18 09:33 CT head/brain wo con Stat Hospital Course (1) Dizziness: Dizziness: Vertigo Vs secondary to medications Negative Orthostatics No Presyncope/Syncope history Reports history of Tinnitus and hearing problems in right ear since [address] head: No acute intracranial findings. Extensive chronic small vessel change of aging. Monitor in Telemetry for arrhythmia Decrease Hydralazine from 50 mg to 25mg TID Decrease Isosorbide from 40mg to 20mg TID Fall precautions Meclizine PRN PT/OT eval Advised to follow up with ENT as outpatient Acute on Chronic diastolic CHF exacerbation Reports weight gain, [place]CG[place], Orthopnea CXR : Small parenchymal infiltrate left base superimposed upon chronic pleural and parenchymal change. Last ECHO:Grade II diastolic dysfunction, EF: 65-70% in Nov 2018 Hold PO diuretics Continue IV Lasix 60mg BID Daily weight, I/Os, fluid restriction Low sodium diet Oxygen support PRN Monitor renal function/electrolytes Appreciate Cardiology Input Plan to transition to Torsemide 40mg BID with Potassium supplements for 2 more days and then 40mg daily Ambulatory dysfunction: CT head: No acute changes Uses walker at baseline PT/OT Needs rehab placement Possible Left base infiltrate on CXR: Patient denies any cough, fever Normal Procalcitonin No Leukocytosis No plan to start Abx H/O UTI UA normal Patient denies any urinary symptoms DM II Last A1C: 5.8 Will hold oral diabetic meds ISS, basal Insulin, Accu checks, Diabetic diet Update A1C: 5.8 HTN Stable Continue home medications CKD III Baseline Cr: Mid to high 1s Cr:1.42 Monitor renal function JT Continue home medications GERD Continue PPI RENE CPAP Qhs COPD Chronic Oxygen dependency: on 2 liters Continue Nebs Dyslipidemia Continue Stains Gout On Allopurinol Morbid Obesity BMI:48 DVT Px: Heparin SQ Code Status: Full Code Disposition: Accepted at [facility] Consulted Total Time Total Time Spent Total Time Spent (In Minutes): 41 minutes Total Time Includes: Examination of the Patient, Discharge Planning, Medication Reconciliation, Communication With Other Providers and Other Discharge Plan Discharge Items Patient Disposition: Transfer Inpatient Rehab Fac Reason For Visit: DIZZINESS, SOB Discharge Diagnosis: Acute on Chronic diastolic CHF exacerbation Dizziness Likely vertigo Ambulatory dysfunction Discharge Goals: Decrease discomfort, Improve disease control and Improve function Activity: Resume your previous activity Exercise/Sports: Gradually increase as tolerated Non-emergency contact: Primary Care Provider and Carpet Floor Layer Apprentice Call non-emergency contact if: you have any medication questions, your symptoms worsen, your pain is not controlled, your pain is worsening, your pain is unusual for you and your pain is concerning for you Follow-up/Referrals: Keyon Rdz DO [Primary Care Provider] - Diet: Carb Consistent or DM2 and Heart Healthy Addtl Provider Instructions: Follow up with your PCP in 1 week after being discharged from rehab facility Follow up with your Carpet Floor Layer Apprentice in 1 week Follow up with your ENT surgeon for evaluation of Vertigo as advised Take torsemide 40 mg twice daily for 2 more days until wednesday (01/04/19) and then 40 mg daily Take Potassium Chloride 20 MEq twice daily for 2 more days until wednesday (01/04/19) and then 20 MEq daily Seek immediate medical attention if your symptoms reoccur or worsen Call your Primary Care doctor if any of the following symptoms or problems start or get worse: * Shortness of breath or difficulty breathing * Wake up at night short of breath * Chest pain * Cough * Swelling of your hands, feet, or legs * More fatigued or tired with your normal activity * Palpitations - sudden fast heart beats WEIGHT * Weigh yourself every morning after using the bathroom. * Use the same scale. * Wear the same amount of clothing. * Write your weight down on a chart. * Call your Primary Care doctor if you gain more than 2-3 pounds in 1-2 days. MEDICATIONS * Use this discharge instruction sheet for medication instructions. * Take your medications at the time your doctor ordered. * Do not skip a dose of your medicines. * If you miss a dose of medicine, take it as soon as possible, but DO NOT DOUBLE A DOSE. * Read your medicine information when you get home. * Know all of the side effects of your medicine. If in doubt, ask your pharmacist * Call your Primary Care doctor's office if you have any side effects. * Be sure all of your doctors know what medicine and herbs you take (including cold, flu, and herbal medicine). Take the following with you to your follow-up doctor appointments: * Weight Chart * Medication List * List of questions Do not drink excessive alcohol, beer or wine. Prescriptions: New meclizine 12.5 mg Tablet 12.5 mg PO TID PRN (Reason: vertigo) 15 Days Qty: 20 RF: 0 isosorbide dinitrate 20 mg Tablet 20 mg PO TID@0700,1200,1700 30 Days Qty: 90 RF: 0 hydralazine 50 mg Tablet 25 mg PO TID 30 Days Qty: 45 RF: 0 Continued omeprazole 40 mg capsule,delayed release(DR/EC) 40 mg PO QAM RF: 0 aspirin 81 mg Tablet,Delayed Release (Dr/Ec) 81 mg PO QAM RF: 0 allopurinol 300 mg tablet 300 mg PO HS RF: 0 paroxetine HCl 40 mg tablet 40 mg PO QAM RF: 0 glipizide 5 mg tablet 5 mg PO BID RF: 0 atorvastatin 20 mg tablet 20 mg PO HS RF: 0 ferrous sulfate [iron] 325 mg (65 mg iron) Tablet 325 mg PO BID RF: 0 clonazepam 1 mg tablet 1 mg PO BID PRN (Reason: Anxiety) RF: 0 insulin detemir U-100 100 unit/mL (3 mL) insulin pen 29 unit subcut HS RF: 0 sennosides [Senokot] 8.6 mg Tablet 8.6 mg PO QAM 30 Days Qty: 30 RF: 0 metoprolol succinate 50 mg Tablet Extended Release 24 Hr 100 mg PO BID 30 Days Qty: 120 RF: 0 ipratropium-albuterol 0.5 mg-3 mg(2.5 mg base)/3 mL Solution For Nebulization 3 ml INHALATION Q6H RF: 0 trazodone 50 mg tablet 50 mg PO HS RF: 0 polyethylene glycol 3350 17 gram/dose Powder 17 g PO DAILY RF: 0 albuterol sulfate [Ventolin HFA] 90 mcg/actuation Hfa Aerosol Inhaler 2 puff INHALATION Q4H PRN (Reason: Wheezing) RF: 0 Changed torsemide 20 mg tablet 40 mg PO UD Qty: 0 RF: 0 potassium chloride 20 mEq tablet,ER particles/crystals 20 meq PO UD Qty: 0 RF: 0 Discontinued hydralazine 100 mg tablet 50 mg PO TID RF: 0 isosorbide dinitrate 20 mg Tablet 40 mg PO TID@0700,1200,1700 30 Days Qty: 60 RF: 0 Stand-Alone Forms: [employer] [facility] [employer]/Other Patient Handouts: Heart Failure Warning Signs, Heart Failure Diet Changes Discharge Orders: Discharge Order (Routine); Ordered 01/02/19 Ordered By: Chalo Sawyer Skilled Items Patient informed of condition?: Yes DNR: No Discharge Level of Care: Acute rehab Communicable Disease: No Discharge Prognosis: Improving Admission Data Admit Date/Time: 12/31/18 12:49 Attending Provider: Chalo Sawyer Admit Provider: Chalo Sawyer Primary Care Provider: Keyon Rdz Other Providers: Chalo Sawyer ; Jay Peguero Service: Telemetry Other Interventions: Discharge Summary Assessment (RN) Last Done: 01/02/19 17:05 Pending Studies at Discharge: No DC Date/Time DO NOT enter until pt leaves facility: 01/02/19 17:50
== END 2019-01-02 17:50 ==
LOC: ED 08:54 → 2S 12:49

== ENCOUNTER 2019-02-28 06:33 | Inpatient (IN) ==
--- OUTSIDE RECORDS SUMMARY | 2019-02-28 06:36 | External Medical Summary | Continuity of Care Document ---
:1945 Author Name Hortencia Woodall, Provider Address Unavailable Unavailable , Care Team Providers Name Role Phone Pritesh Woodall, Jay Unavailable [email or web address] Garner Unavailable Unavailable Problems Active medical history not documented Allergies and Adverse Reactions Allergy history not documented Medications Medications not documented Procedures Procedures not documented Immunizations Immunizations not documented Plan of Treatment Planned Observations Planned Goals not documented Results No Known Results Results not documented
[2019-02-28] MEDS ORDERED: ACETAMINOPHEN 500 MG TAB PO STA (06:55)
[2019-02-28 07:19] LABS: Basophils # (auto) 0.01 K/uL (0-0.2); Eosinophils # (auto) 0.02 K/uL (0-0.5); Eosinophils % (auto) 0.1 %; Hematocrit (blood only) 22.9 % (42-52); Hemoglobin 7.5 g/dL (14.0-18.0); Immature Granulocytes # (auto) 0.19 K/uL (0.00-0.02); Immature Granulocytes % (auto) 0.9 %; Lymphocytes # (auto) 1.56 K/uL (1.2-3.4); Lymphocytes % (auto) 7.7 %; Mean Corpuscular Hgb Conc 32.8 g/dL (32-36); Mean Corpuscular Volume 87.4 fL (80-100); Mean Platelet Volume 8.8 fL (7.4-10.4); Monocytes # (auto) 1.51 K/uL (0.11-0.59); Monocytes % (auto) 7.5 %; Neutrophils # (auto) 16.94 K/uL (1.4-6.5); Neutrophils % (auto) 83.8 %; Platelet Count 256 K/uL (130-400); RDW Coefficient of Variation 17.9 % (11.5-14.5); RDW Standard Deviation 57.1 fL (36.4-46.3); Red Blood Count 2.62 M/uL (4.7-6.1); White Blood Count 20.23 K/uL (4.8-10.8)
--- NOTE | 2019-02-28 07:25 | XRay Report ---
XR knee LT 3V, XR knee RT 3V HISTORY: 74 years-old Male fall acute bilateral knee pain status post fall COMPARISON: None available TECHNIQUE: 3 views of the bilateral knees FINDINGS: LEFT: Moderate soft tissue prominence circumferentially about the knee. There is mild tricompartmental oste oarthritis. No acute fracture, dislocation or opaque foreign body. RIGHT: Mild soft tissue prominence about the knee. Mild tricompartmental osteoarthritis. No acute fracture o r dislocation. Small joint effusion. IMPRESSION: No acute fracture or dislocation. The above report was generated using voice recognition software. It may contain grammatical, syntax o r spelling errors. Electronically signed by: Lazaro Ortega M.D. 02/28/2019 7:24 AM
--- NOTE | 2019-02-28 07:30 | XRay Report ---
SINGLE VIEW CHEST CLINICAL HISTORY: Fall. Generalized weakness. FINDINGS: An AP, portable, upright chest radiograph is compared to study dated 12/31/2018 and correlate d with chest CT dated 11/30/2018. The examination is degraded by portable technique, large body habitu s, and patient rotation. The heart is enlarged and there is atherosclerotic calcification of the tho racic aorta. The pulmonary vasculature is noncongested. There is patchy airspace consolidation presen t at both lung bases and small pleural effusions. No pneumothorax is seen. The skeletal structures ar e osteopenic. The bony thorax is grossly intact. IMPRESSION: 1. Cardiomegaly without radiographic evidence of congestive failure. 2. Small pleural effusions. 3. Bibasilar airspace opacities are nonspecific and could represent atelectasis and/or an infectious/ inflammatory pneumonitis. Clinical correlation will be required. Electronically signed by: Carmelo Soni M.D. 02/28/2019 7:29 AM
[2019-02-28 07:32] LABS: Albumin Level 2.8 gm/dl (3.4-5.0); BUN Creatinine Ratio 16.9 (10-20); Creatinine Clr Calc Pharmacy 26.4 ml/min; Est GFR (African American) 22.5; Est GFR (Non-African American) 19.4; Potassium 4.2 mmol/L (3.5-5.1)
[2019-02-28] MEDS ORDERED: SODIUM CHLORIDE 0.9% 1000ML 500 ML IV ONE (07:35)
--- NOTE | 2019-02-28 07:39 | CT Scan Report ---
CT SCAN OF THE BRAIN WITHOUT IV CONTRAST CLINICAL HISTORY: Weakness. Dizziness. COMPARISON STUDY: CT of the brain dated 12/31/2018. TECHNIQUE: Unenhanced axial CT scan of the brain is performed from the vertex to the skull base. A do se lowering technique was utilized adhering to the principles of ALARA. CT DOSE: 638.56 mGycm FINDINGS: Brain parenchyma: There are age-related involutional changes noting moderate subcortical and periven tricular microangiopathic change. There is no hemorrhage, mass effect, or evidence of acute territori al ischemia by CT criteria. Marvin-white matter differentiation is preserved. No extra-axial fluid misael ection is seen. Ventricles, sulci, cisterns: Prominent secondary to involutional change. Intracranial vasculature: There is atherosclerotic calcification of the cavernous carotid and vertebr al arteries. Calvarium: Unremarkable. Sinuses and mastoids: The visualized paranasal sinuses are clear. The mastoid air cells are well pneu matized. Orbits: The bony orbits are grossly intact. IMPRESSION: There is no hemorrhage, mass effect, or evidence of acute territorial ischemia by CT amara mitchell. Electronically signed by: Carmelo Soni M.D. 02/28/2019 7:38 AM
[2019-02-28 07:44] LABS: Albumin Globulin Ratio 0.7 (0.9-2); Bilirubin,Total 0.8 mg/dl (0.2-1); Globulin 3.9 gm/dl (2.5-4.0); Total Protein 6.7 gm/dl (6.4-8.2); Troponin I 2.37 ng/ml (0-0.045)
[2019-02-28 07:46] LABS: RBC Morphology Unremarkable
[2019-02-28] MEDS ORDERED: ASPIRIN 81 MG CHEW PO STA (07:52)
--- NOTE | 2019-02-28 08:20 | CT Scan Report ---
CT chest wo con CT DOSE: 814.56 mGy.cm CLINICAL HISTORY: 74 years-old Male with fall, CXR ? pna vs atalectatsis. Acute chest trauma with fa ll. Bibasilar opacities described on comparison chest radiograph. TECHNIQUE: Multiaxial CT images of the chest were performed without contrast. A dose lowering techni que was utilized adhering to the principles of ALARA. COMPARISON: Chest radiograph of same day, CTA chest 11/30/2017 FINDINGS: No focal thyroid nodule. Heart is mildly enlarged. No pericardial effusion. Coronary arterial calcifi cations are noted. Enlarged lymph node about the right tracheoesophageal recess measures 2.0 x 1.4 cm , previously 1.9 x 1.2 cm. Calcified bilateral hilar lymph nodes compatible with prior granulomatous disease. Small to moderate bilateral pleural effusions, unchanged. No pneumothorax. Bilateral mosaic attenuati on. Linear subsegmental pleural based consolidative opacities are noted bilaterally within a bibasila r predominant distribution. Additional patchy bibasilar groundglass densities are noted. These findin gs appear similar to comparison. There are a few scattered calcific granulomata noted. Central airway s appear patent. Hepatosplenomegaly with hepatic steatosis. Trace perisplenic ascites. Gynecomastia. Bones appear inta ct. No acute fracture identified. Multilevel degenerative changes about the spine. IMPRESSION: 1. Small to moderate bilateral pleural effusions appear unchanged. 2. Bibasilar predominant linear consolidative and groundglass densities are suggestive of probable at electasis. Pneumonitis considered less likely. 3. Bilateral mosaic attenuation suggests areas of associated air trapping. 4. Prior granulomatous disease. 5. Cardiomegaly. 6. Hepatosplenomegaly with hepatic steatosis. 7. Trace left upper quadrant ascites. Electronically signed by: Lazaro Ortega M.D. 02/28/2019 8:18 AM
--- NOTE | 2019-02-28 08:23 | Emergency Department Note ---
Entered by Becca Mas acting as a scribe for Preston Barba M.D. History of Present Illness General Chief complaint: Weakness Stated complaint: WEAKNESS Source: patient History of Present Illness Onset (ago): hour(s) (last night) Location: head Pain Consistency: + other (persistent) Quality: + other (weakness) Associated symptoms: + denies other symptoms (abdominal, arm, back, or hip pain) and + other (bilateral knee pain, fall, dizziness); no chest pain and no shortness of breath The patient is a 74 year old male that is presenting to the Emergency Room with complaints of persistent weakness that started over night. The patient reports he started feeling dizzy and that he fell onto his knees as a result. He states that he was using his walker when he fell. He states that his bilateral knees are hurting currently. He denies any knee pain with palpation or movement. He denies any abdominal, arm, back, hip, or chest pain. He denies any abnormal shortness of breath. He states that he was not able to get up on his own after the fall and had to call for help. He notes that he was lying on the floor for some time before being found. He denies hitting his head during the fall. He notes that he is normally on 2L O2 at home. He reports that he has had issues with dizziness in the past. He denies any history of knee replacements or arthritis in his knees. He notes that he lives with his who was sleeping at the time of the fall. He states that he has not had any illnesses recently. Home Medications Home Medications Medication Instructions Recorded Confirmed Type allopurinol 300 mg PO HS 11/30/18 02/28/19 History aspirin 81 mg PO QAM 11/30/18 02/28/19 History atorvastatin 20 mg PO HS 11/30/18 02/28/19 History clonazepam 1 mg PO BID PRN 11/30/18 02/28/19 History ferrous sulfate [iron] 325 mg PO BID 11/30/18 02/28/19 History glipizide 5 mg PO BID 11/30/18 02/28/19 History omeprazole 40 mg PO QAM 11/30/18 02/28/19 History paroxetine HCl 40 mg PO QAM 11/30/18 02/28/19 History trazodone 50 mg PO HS 12/31/18 02/28/19 History acetaminophen 650 mg PO Q4 PRN MDD 10 tablets 02/28/19 02/28/19 History daily docusate sodium [Colace] 100 mg PO BID 02/28/19 02/28/19 History hydralazine 25 mg PO TID 02/28/19 02/28/19 History insulin glargine [Lantus U-100 29 unit SUBCUT HS 02/28/19 02/28/19 History Insulin] metoprolol succinate 100 mg PO BID 02/28/19 02/28/19 History potassium chloride 20 meq PO QAM 02/28/19 02/28/19 History torsemide 40 mg PO QAM 02/28/19 02/28/19 History Allergies Allergy/AdvReac Type Severity Reaction Status Date / Time minoxidil Allergy Intermediate RASH Verified 02/28/19 06:54 venlafaxine Allergy Intermediate HTN, SHAKEY Verified 02/28/19 06:54 amlodipine Allergy Unknown Unknown Verified 02/28/19 06:54 clonidine AdvReac Unknown INTOLERANT Verified 02/28/19 06:54 Past Med/Surg History Family History Other Family history non-contributory Social History Preferred Language: Italian Communication Ability: Effective Visual Impairment: Limited Vegetable Grader Required: No Beliefs That Will Affect Care: None marital status: Current Living Situation: Spouse Other Information That Helps Us Care for You: No Feels Safe at Home: Yes Safety Concerns: Feels Safe At This Time Smoking Status: Never smoker Second Hand Exposure: No Hx Alcohol Use: No Hx Substance Use: No Review of Systems See HPI for pertinent positives & negatives. and A total of 10 systems reviewed and were otherwise negative Physical Exam Vital Signs Vital Signs - 24 hr 02/28/19 06:40 02/28/19 06:42 02/28/19 06:45 Temperature 36.5 C Temperature Source Oral Sepsis Recent Fever Within 48 Hours No Sepsis New/Unexplained Change in Mental Status No Sepsis Action Taken by Nursing No Action Required Pulse Rate 92 H 92 H Pulse Rate [Finger] Pulse Rate from SpO2 Sensor 88 92 H Pulse Rhythm Regular Pulse Strength Normal Respiratory Rate 19 27 H Respiratory Effort / Characteristics Non-Labored Spontaneous Respiratory Depth Normal Respiratory Pattern Regular Blood Pressure 123/58 L 123/58 L Blood Pressure [Left Arm] Blood Pressure Mean 79 79 Blood Pressure Mean [Left Arm] Blood Pressure Position Lying Blood Pressure Position [Left Arm] Pulse Oximetry 95 98 98 Oxygen Delivery Method Nasal Cannula Nasal Cannula Oxygen Flow Rate 2 2 Fraction of Inspired Oxygen 02/28/19 06:50 02/28/19 07:00 02/28/19 07:10 Temperature Temperature Source Sepsis Recent Fever Within 48 Hours Sepsis New/Unexplained Change in Mental Status Sepsis Action Taken by Nursing Pulse Rate 90 90 95 H Pulse Rate [Finger] Pulse Rate from SpO2 Sensor 90 90 96 H Pulse Rhythm Pulse Strength Respiratory Rate 27 H 22 30 H Respiratory Effort / Characteristics Respiratory Depth Respiratory Pattern Blood Pressure Blood Pressure [Left Arm] Blood Pressure Mean Blood Pressure Mean [Left Arm] Blood Pressure Position Blood Pressure Position [Left Arm] Pulse Oximetry 100 99 96 Oxygen Delivery Method Oxygen Flow Rate Fraction of Inspired Oxygen 02/28/19 07:20 02/28/19 07:35 02/28/19 07:36 Temperature Temperature Source Sepsis Recent Fever Within 48 Hours Sepsis New/Unexplained Change in Mental Status Sepsis Action Taken by Nursing Pulse Rate 96 H 97 H 96 H Pulse Rate [Finger] Pulse Rate from SpO2 Sensor 96 H Pulse Rhythm Pulse Strength Respiratory Rate 30 H 19 30 H Respiratory Effort / Characteristics Respiratory Depth Respiratory Pattern Blood Pressure 112/64 Blood Pressure [Left Arm] Blood Pressure Mean 80 Blood Pressure Mean [Left Arm] Blood Pressure Position Blood Pressure Position [Left Arm] Pulse Oximetry 96 Oxygen Delivery Method Oxygen Flow Rate Fraction of Inspired Oxygen 02/28/19 07:40 02/28/19 07:50 02/28/19 08:00 Temperature Temperature Source Sepsis Recent Fever Within 48 Hours Sepsis New/Unexplained Change in Mental Status Sepsis Action Taken by Nursing Pulse Rate 95 H 95 H 94 H Pulse Rate [Finger] Pulse Rate from SpO2 Sensor 95 H 96 H 94 H Pulse Rhythm Pulse Strength Respiratory Rate 26 H 28 H 30 H Respiratory Effort / Characteristics Respiratory Depth Respiratory Pattern Blood Pressure Blood Pressure [Left Arm] Blood Pressure Mean Blood Pressure Mean [Left Arm] Blood Pressure Position Blood Pressure Position [Left Arm] Pulse Oximetry 96 95 95 Oxygen Delivery Method Oxygen Flow Rate Fraction of Inspired Oxygen 02/28/19 08:13 02/28/19 08:17 02/28/19 08:20 Temperature Temperature Source Sepsis Recent Fever Within 48 Hours Sepsis New/Unexplained Change in Mental Status Sepsis Action Taken by Nursing Pulse Rate 95 H 96 H Pulse Rate [Finger] Pulse Rate from SpO2 Sensor 95 H 95 H 96 H Pulse Rhythm Pulse Strength Respiratory Rate 28 H 28 H Respiratory Effort / Characteristics Respiratory Depth Respiratory Pattern Blood Pressure 120/78 Blood Pressure [Left Arm] Blood Pressure Mean 92 Blood Pressure Mean [Left Arm] Blood Pressure Position Blood Pressure Position [Left Arm] Pulse Oximetry 93 94 95 Oxygen Delivery Method Oxygen Flow Rate Fraction of Inspired Oxygen 02/28/19 08:30 02/28/19 08:31 02/28/19 08:40 Temperature Temperature Source Sepsis Recent Fever Within 48 Hours Sepsis New/Unexplained Change in Mental Status Sepsis Action Taken by Nursing Pulse Rate 98 H 98 H 94 H Pulse Rate [Finger] Pulse Rate from SpO2 Sensor 99 H 98 H 94 H Pulse Rhythm Pulse Strength Respiratory Rate 29 H 28 H 27 H Respiratory Effort / Characteristics Respiratory Depth Respiratory Pattern Blood Pressure 132/76 Blood Pressure [Left Arm] Blood Pressure Mean 94 Blood Pressure Mean [Left Arm] Blood Pressure Position Blood Pressure Position [Left Arm] Pulse Oximetry 96 97 98 Oxygen Delivery Method Oxygen Flow Rate Fraction of Inspired Oxygen 02/28/19 08:50 02/28/19 09:00 02/28/19 09:01 Temperature Temperature Source Sepsis Recent Fever Within 48 Hours Sepsis New/Unexplained Change in Mental Status Sepsis Action Taken by Nursing Pulse Rate 93 H 94 H 93 H Pulse Rate [Finger] Pulse Rate from SpO2 Sensor 94 H 94 H 94 H Pulse Rhythm Pulse Strength Respiratory Rate 26 H 26 H 24 Respiratory Effort / Characteristics Respiratory Depth Respiratory Pattern Blood Pressure 121/68 Blood Pressure [Left Arm] Blood Pressure Mean 85 Blood Pressure Mean [Left Arm] Blood Pressure Position Blood Pressure Position [Left Arm] Pulse Oximetry 98 98 98 Oxygen Delivery Method Oxygen Flow Rate Fraction of Inspired Oxygen 02/28/19 09:10 02/28/19 09:20 02/28/19 09:30 Temperature Temperature Source Sepsis Recent Fever Within 48 Hours Sepsis New/Unexplained Change in Mental Status Sepsis Action Taken by Nursing Pulse Rate 91 H 93 H 94 H Pulse Rate [Finger] Pulse Rate from SpO2 Sensor 91 H 93 H 93 H Pulse Rhythm Pulse Strength Respiratory Rate 26 H 21 26 H Respiratory Effort / Characteristics Respiratory Depth Respiratory Pattern Blood Pressure Blood Pressure [Left Arm] Blood Pressure Mean Blood Pressure Mean [Left Arm] Blood Pressure Position Blood Pressure Position [Left Arm] Pulse Oximetry 99 98 96 Oxygen Delivery Method Oxygen Flow Rate Fraction of Inspired Oxygen 02/28/19 09:31 02/28/19 09:40 02/28/19 09:50 Temperature Temperature Source Sepsis Recent Fever Within 48 Hours Sepsis New/Unexplained Change in Mental Status Sepsis Action Taken by Nursing Pulse Rate 95 H 92 H 92 H Pulse Rate [Finger] Pulse Rate from SpO2 Sensor 99 H 93 H 92 H Pulse Rhythm Pulse Strength Respiratory Rate 32 H 26 H 25 H Respiratory Effort / Characteristics Respiratory Depth Respiratory Pattern Blood Pressure 114/71 Blood Pressure [Left Arm] Blood Pressure Mean 85 Blood Pressure Mean [Left Arm] Blood Pressure Position Blood Pressure Position [Left Arm] Pulse Oximetry 97 99 98 Oxygen Delivery Method Oxygen Flow Rate Fraction of Inspired Oxygen 02/28/19 10:20 02/28/19 10:22 02/28/19 11:26 Temperature 36.4 C L Temperature Source Oral Sepsis Recent Fever Within 48 Hours Sepsis New/Unexplained Change in Mental Status Sepsis Action Taken by Nursing Pulse Rate 91 H Pulse Rate [Finger] Pulse Rate from SpO2 Sensor Pulse Rhythm Pulse Strength Respiratory Rate 20 22 Respiratory Effort / Characteristics Spontaneous Short of Breath SOB on Exertion Respiratory Depth Normal Respiratory Pattern Regular Blood Pressure 107/65 107/65 Blood Pressure [Left Arm] 114/71 Blood Pressure Mean 79 79 Blood Pressure Mean [Left Arm] 85 Blood Pressure Position Blood Pressure Position [Left Arm] Lying Pulse Oximetry 98 98 Oxygen Delivery Method Room Air Nasal Cannula Oxygen Flow Rate 3 Fraction of Inspired Oxygen 02/28/19 11:36 02/28/19 11:41 02/28/19 11:47 Temperature Temperature Source Oral Sepsis Recent Fever Within 48 Hours Sepsis New/Unexplained Change in Mental Status Sepsis Action Taken by Nursing Pulse Rate Pulse Rate [Finger] 86 Pulse Rate from SpO2 Sensor Pulse Rhythm Pulse Strength Respiratory Rate 18 Respiratory Effort / Characteristics Spontaneous Short of Breath SOB on Exertion Non-Labored Spontaneous Respiratory Depth Normal Respiratory Pattern Regular Blood Pressure Blood Pressure [Left Arm] Blood Pressure Mean Blood Pressure Mean [Left Arm] Blood Pressure Position Blood Pressure Position [Left Arm] Pulse Oximetry 98 Oxygen Delivery Method Nasal Cannula Nasal Cannula Oxygen Flow Rate 3 Fraction of Inspired Oxygen 3 02/28/19 13:49 Temperature 36.6 C Temperature Source Oral Sepsis Recent Fever Within 48 Hours Sepsis New/Unexplained Change in Mental Status Sepsis Action Taken by Nursing Pulse Rate 86 Pulse Rate [Finger] Pulse Rate from SpO2 Sensor Pulse Rhythm Regular Pulse Strength Respiratory Rate 18 Respiratory Effort / Characteristics Respiratory Depth Respiratory Pattern Blood Pressure 109/69 Blood Pressure [Left Arm] Blood Pressure Mean 82 Blood Pressure Mean [Left Arm] Blood Pressure Position Blood Pressure Position [Left Arm] Pulse Oximetry 98 Oxygen Delivery Method Oxygen Flow Rate 2 Fraction of Inspired Oxygen GENERAL: Awake, alert, fatigued-appearing, in no distress HENT: Normocephalic, atraumatic. Oropharynx unremarkable. EYES: Normal conjunctiva. Sclera non-icteric. PERRL NECK: Supple. No nuchal rigidity. RESPIRATORY: Clear to auscultation. No wheezes. Normal respiratory effort. On 2L of home oxygen. CARDIAC: Normal rate. Normal rhythm. Extremities warm and well perfused. GI: Soft, non-distended. No tenderness to palpation. No rebound or guarding. No masses. RECTAL: Deferred. MUSCULOSKELETAL: Atraumatic. Chest examination reveals no tenderness. There is no CVA tenderness to palpation. LOWER EXTREMITIES: Calves are equal size bilaterally and non-tender. No edema. Slight abrasion to bilateral knees. Minimal tenderness or pain to bilateral knees. Neurovascularly intact in bilateral feet. NEURO: Normal sensorium. No sensory or motor deficits noted. No facial droop. SKIN: Warm and dry. No rash or jaundice noted. Course 0653:The patient was evaluated in room A11B. A complete history and physical examination was performed. 0743: I updated the patient on his current lab and imaging results. 0814: I reviewed the patient's case with YESSICA Carbajal, who will evaluate the patient for further management with Dr. Sawyer as the attending physician. 0819: I reviewed the [facility]'s [facility] who agrees with the patient's current treatment plan. 0830: Upon reevaluation, the patient is resting comfortably. I discussed la boratory and radiographic results with the patient. He verbalized agreement of the treatment plan. The patient will be evaluated for further management and care. Consultations Consultation #1: I reviewed the patient's case with YESSICA Carbajal, who will evaluate the patient for further management with Dr. Sawyer as the attending physician. Time: 08:14 Consultation #2: I reviewed the patient's case with [facility], who agrees with the patient's current treatment plan. Time: 08:19 Administered Medications Albuterol (Duoneb) 3 ml NEB QIDR [facility] Stop: 03/30/19 11:59 Last Admin: 02/28/19 11:39 Dose: 3 ml Documented by: [id number] Hydralazine HCl (Apresoline) 25 mg PO TID [facility] Stop: 03/30/19 13:59 Last Admin: 02/28/19 13:03 Dose: 25 mg Documented by: [id number] Sodium Chloride (Nss 1000ml) 1,000 mls @ 60 mls/hr IV .[id number] [facility] Stop: 03/01/19 04:09 Last Admin: 02/28/19 12:29 Dose: 60 mls/hr Documented by: [id number] Ceftriaxone Sodium 2,000 mg/ (Dextrose) 50 mls @ 100 mls/hr IV Q24H [facility]; Protocol Stop: 03/07/19 11:59 Last Infusion: 02/28/19 12:59 Dose: 0 mls/hr Documented by: [id number] Admin: 02/28/19 12:29 Dose: 100 mls/hr Documented by: [id number] Doxycycline Hyclate 100 mg/ (Dextrose) 110 mls @ 50 mls/hr IV Q12H [facility]; Protocol Stop: 03/07/19 11:59 Last Admin: 02/28/19 13:02 Dose: 50 mls/hr Documented by: [id number] Insulin Aspart (Novolog Flexpen) 0 units SC Q6 [facility] Stop: 03/30/19 12:44 Last Admin: 02/28/19 13:00 Dose: Not Given Documented by: [id number] Discontinued Medications Acetaminophen (Tylenol) 1,000 mg PO NOW STA Stop: 02/28/19 06:56 Last Admin: 02/28/19 07:21 Dose: 1,000 mg Documented by: [id number] Aspirin (Aspirin Chew) 324 mg PO NOW STA Stop: 02/28/19 07:53 Last Admin: 02/28/19 08:27 Dose: 324 mg Documented by: [id number] Sodium Chloride (Nss 1000ml) 500 mls @ 999 mls/hr IV .Q31M ONE Stop: 02/28/19 08:05 Last Infusion: 02/28/19 09:24 Dose: 0 mls/hr Documented by: [id number] Admin: 02/28/19 08:10 Dose: 999 mls/hr Documented by: [id number] Insulin Aspart (Novolog Flexpen) 0 units SC ACHS [facility] Stop: 03/30/19 11:29 Last Admin: 02/28/19 12:36 Dose: Not Given Documented by: [id number] Cosigned by: [id number] Perflutren Lipid Microsphere (Definity) 2 ml IV ONCE ONE Stop: 02/28/19 10:24 Last Admin: 02/28/19 10:24 Dose: 2 ml Documented by: [id number] Medical Decision Making Differential Diagnosis Differential diagnosis: Etiologies such as metabolic, infection, hypo/hyperglycemia, electrolyte abn ormalities, cardiac sources, intracerebral event, toxicologic, neurologic, sprain, and fractures, as well as others were entertained. Medical Records Attestation: I reviewed the patient's medical records. Home Medications Current Medication List: was personally reviewed by me Laboratory Data Attestation: I reviewed the patient's lab results. Result diagrams: 02/28/19 12:19 02/28/19 07:07 Lab Results 02/28/19 02/28/19 02/28/19 Range/Units 07:07 07:07 09:31 WBC 20.23 H (4.8-10.8) K/uL RBC 2.62 L (4.7-6.1) M/uL Hgb 7.5 L (14.0-18.0) g/dL Hct 22.9 L (42-52) % MCV 87.4 (80-100) fL MCH 28.6 (25-34) pg MCHC 32.8 (32-36) g/dL RDW Std Deviation 57.1 H (36.4-46.3) fL RDW Coeff of Alfonso 17.9 H (11.5-14.5) % Plt Count 256 (130-400) K/uL MPV 8.8 (7.4-10.4) fL Immature Gran % (Auto) 0.9 % Neut % (Auto) 83.8 % Lymph % (Auto) 7.7 % [place] % (Auto) 7.5 % Eos % (Auto) 0.1 % Baso % (Auto) 0.0 % Immature Gran # (Auto) 0.19 H (0.00-0.02) K/uL Neut # (Auto) 16.94 H (1.4-6.5) K/uL Lymph # (Auto) 1.56 (1.2-3.4) K/uL [place] # (Auto) 1.51 H (0.11-0.59) K/uL Eos # (Auto) 0.02 (0-0.5) K/uL Baso # (Auto) 0.01 (0-0.2) K/uL Blood Smear Review RBC Morphology Unremarkable Sodium 137 (136-145) mmol/L Potassium 4.2 (3.5-5.1) mmol/L Chloride 99 (98-107) mmol/L Carbon Dioxide 30 (21-32) mmol/L Anion Gap 7.0 (3-11) BUN 52 H (7-18) mg/dl Creatinine 3.05 H (0.6-1.4) mg/dl Est Cr Clr Drug Dosing 26.4 ml/min Est GFR ( Amer) 22.5 Est GFR (Non-Af Amer) 19.4 BUN/Creatinine Ratio 16.9 (10-20) Glucose 127 H (70-99) mg/dl POC Glucose (70-99) Lactate 1.1 (0.4-2.0) mmol/L Calcium 9.0 (8.5-10.1) mg/dl Total Bilirubin 0.8 (0.2-1) mg/dl AST 23 (15-37) U/L ALT 16 (12-78) U/L Alkaline Phosphatase 92 (45-117) U/L Total Creatine Kinase 140 (39-308) U/L Troponin I 2.370 H* (0-0.045) ng/ml Total Protein 6.7 (6.4-8.2) gm/dl Albumin 2.8 L (3.4-5.0) gm/dl Globulin 3.9 (2.5-4.0) gm/dl Albumin/Globulin Ratio 0.7 L (0.9-2) Lipase 105 (73-393) U/L Procalcitonin (0-0.5) ng/ml Urine Color Urine Appearance (Clear) Urine pH (4.5-7.5) Ur Specific [place] (1.000-1.030) Urine Protein (Negative) Urine Glucose (UA) (Negative) Urine Ketones (Negative) Urine Blood (Negative) Urine Nitrite (Negative) Urine Bilirubin (Negative) Urine Urobilinogen (Negative) Ur Leukocyte Esterase (Negative) Urine WBC (Auto) (0-5) /hpf Urine RBC (Auto) (0-4) /hpf U Hyaline Cast (Auto) (0-5) /lpf U Epithel Cells (Auto) (0-5) /lpf Urine Bacteria (Auto) (Negative) Granular Casts (0) /lpf Urine Yeast Blood Type Antibody Screen Crossmatch 02/28/19 02/28/19 02/28/19 Range/Units 09:31 11:09 12:19 WBC (4.8-10.8) K/uL RBC (4.7-6.1) M/uL Hgb 6.9 L* (14.0-18.0) g/dL Hct 21.1 L (42-52) % MCV (80-100) fL MCH (25-34) pg MCHC (32-36) g/dL RDW Std Deviation (36.4-46.3) fL RDW Coeff of Alfonso (11.5-14.5) % Plt Count (130-400) K/uL MPV (7.4-10.4) fL Immature Gran % (Auto) % Neut % (Auto) % Lymph % (Auto) % [place] % (Auto) % Eos % (Auto) % Baso % (Auto) % Immature Gran # (Auto) (0.00-0.02) K/uL Neut # (Auto) (1.4-6.5) K/uL Lymph # (Auto) (1.2-3.4) K/uL [place] # (Auto) (0.11-0.59) K/uL Eos # (Auto) (0-0.5) K/uL Baso # (Auto) (0-0.2) K/uL Blood Smear Review RBC Morphology Sodium (136-145) mmol/L Potassium (3.5-5.1) mmol/L Chloride (98-107) mmol/L Carbon Dioxide (21-32) mmol/L Anion Gap (3-11) BUN (7-18) mg/dl Creatinine (0.6-1.4) mg/dl Est Cr Clr Drug Dosing ml/min Est GFR ( Amer) Est GFR (Non-Af Amer) BUN/Creatinine Ratio (10-20) Glucose (70-99) mg/dl POC Glucose 125 H (70-99) Lactate (0.4-2.0) mmol/L Calcium (8.5-10.1) mg/dl Total Bilirubin (0.2-1) mg/dl AST (15-37) U/L ALT (12-78) U/L Alkaline Phosphatase (45-117) U/L Total Creatine Kinase (39-308) U/L Troponin I (0-0.045) ng/ml Total Protein (6.4-8.2) gm/dl Albumin (3.4-5.0) gm/dl Globulin (2.5-4.0) gm/dl Albumin/Globulin Ratio (0.9-2) Lipase (73-393) U/L Procalcitonin 2.42 H (0-0.5) ng/ml Urine Color Urine Appearance (Clear) Urine pH (4.5-7.5) Ur Specific [place] (1.000-1.030) Urine Protein (Negative) Urine Glucose (UA) (Negative) Urine Ketones (Negative) Urine Blood (Negative) Urine Nitrite (Negative) Urine Bilirubin (Negative) Urine Urobilinogen (Negative) Ur Leukocyte Esterase (Negative) Urine WBC (Auto) (0-5) /hpf Urine RBC (Auto) (0-4) /hpf U Hyaline Cast (Auto) (0-5) /lpf U Epithel Cells (Auto) (0-5) /lpf Urine Bacteria (Auto) (Negative) Granular Casts (0) /lpf Urine Yeast Blood Type Antibody Screen Crossmatch 02/28/19 02/28/19 02/28/19 Range/Units 12:19 12: 12:56 WBC (4.8-10.8) K/uL RBC (4.7-6.1) M/uL Hgb (14.0-18.0) g/dL Hct (42-52) % MCV (80-100) fL MCH (25-34) pg MCHC (32-36) g/dL RDW Std Deviation (36.4-46.3) fL RDW Coeff of Alfonso (11.5-14.5) % Plt Count (130-400) K/uL MPV (7.4-10.4) fL Immature Gran % (Auto) % Neut % (Auto) % Lymph % (Auto) % [place] % (Auto) % Eos % (Auto) % Baso % (Auto) % Immature Gran # (Auto) (0.00-0.02) K/uL Neut # (Auto) (1.4-6.5) K/uL Lymph # (Auto) (1.2-3.4) K/uL [place] # (Auto) (0.11-0.59) K/uL Eos # (Auto) (0-0.5) K/uL Baso # (Auto) (0-0.2) K/uL Blood Smear Review RBC Morphology Sodium (136-145) mmol/L Potassium (3.5-5.1) mmol/L Chloride (98-107) mmol/L Carbon Dioxide (21-32) mmol/L Anion Gap (3-11) BUN (7-18) mg/dl Creatinine (0.6-1.4) mg/dl Est Cr Clr Drug Dosing ml/min Est GFR ( Amer) Est GFR (Non-Af Amer) BUN/Creatinine Ratio (10-20) Glucose (70-99) mg/dl POC Glucose (70-99) Lactate (0.4-2.0) mmol/L Calcium (8.5-10.1) mg/dl Total Bilirubin (0.2-1) mg/dl AST (15-37) U/L ALT (12-78) U/L Alkaline Phosphatase (45-117) U/L Total Creatine Kinase (39-308) U/L Troponin I 1.870 H* (0-0.045) ng/ml Total Protein (6.4-8.2) gm/dl Albumin (3.4-5.0) gm/dl Globulin (2.5-4.0) gm/dl Albumin/Globulin Ratio (0.9-2) Lipase (73-393) U/L Procalcitonin (0-0.5) ng/ml Urine Color Yellow Urine Appearance Cloudy H (Clear) Urine pH 5.0 (4.5-7.5) Ur Specific [place] 1.021 (1.000-1.030) Urine Protein 1+ H (Negative) Urine Glucose (UA) Negative (Negative) Urine Ketones Negative (Negative) Urine Blood Negative (Negative) Urine Nitrite Negative (Negative) Urine Bilirubin Negative (Negative) Urine Urobilinogen Negative (Negative) Ur Leukocyte Esterase Negative (Negative) Urine WBC (Auto) 5-10 H (0-5) /hpf Urine RBC (Auto) 0-4 (0-4) /hpf U Hyaline Cast (Auto) 5-10 H (0-5) /lpf U Epithel Cells (Auto) >30 H (0-5) /lpf Urine Bacteria (Auto) 2+ H (Negative) Granular Casts 5-10 H (0) /lpf Urine Yeast Not Reportable Blood Type AB Positive Antibody Screen NEGATIVE Crossmatch See Detail Imaging Data Radiologist's Impression: Radiology results as stated below per my review and the radiologist's interpretation: XR knee LT 3V, XR knee RT 3V HISTORY: 74 years-old Male fall acute bilateral knee pain status post fall COMPARISON: None available TECHNIQUE: 3 views of the bilateral knees FINDINGS: LEFT: Moderate soft tissue prominence circumferentially about the knee. There is mild tricompartmental osteoarthritis. No acute fracture, dislocation or opaque foreign body. RIGHT: Mild soft tissue prominence about the knee. Mild tricompartmental osteoarthritis. No acute fracture or dislocation. Small joint effusion. IMPRESSION: No acute fracture or dislocation. The above report was generated using voice recognition software. It may contain grammatical, syntax or spelling errors. Electronically signed by: Lazaro Ortega M.D. 02/28/2019 7:24 AM XR knee LT 3V, XR knee RT 3V HISTORY: 74 years-old Male fall acute bilateral knee pain status post fall COMPARISON: None available TECHNIQUE: 3 views of the bilateral knees FINDINGS: LEFT: Moderate soft tissue prominence circumferentially about the knee. There is mild tricompartmental osteoarthritis. No acute fracture, dislocation or opaque foreign body. RIGHT: Mild soft tissue prominence about the knee. Mild tricompartmental osteoarthritis. No acute fracture or dislocation. Small joint effusion. IMPRESSION: No acute fracture or dislocation. The above report was generated using voice recognition software. It may contain grammatical, syntax or spelling errors. Electronically signed by: Lazaro Ortega M.D. 02/28/2019 7:24 AM SINGLE VIEW CHEST CLINICAL HISTORY: Fall. Generalized weakness. FINDINGS: An AP, portable, upright chest radiograph is compared to study dated 12/31/2018 and correlated with chest CT dated 11/30/2018. The examination is deg raded by portable technique, large body habitus, and patient rotation. The heart is enlarged and there is atherosclerotic calcification of the thoracic aorta. The pulmonary vasculature is noncongested. There is patchy airspace consolidation present at both lung bases and small pleural effusions. No pneumothorax is seen. The skeletal structures are osteopenic. The bony thorax is grossly intact. IMPRESSION: 1. Cardiomegaly without radiographic evidence of congestive failure. 2. Small pleural effusions. 3. Bibasilar airspace opacities are nonspecific and could represent atelectasis and/or an infectious/inflammatory pneumonitis. Clinical correlation will be required. Electronically signed by: Carmelo Soni M.D. 02/28/2019 7:[address] SCAN OF THE BRAIN WITHOUT IV CONTRAST CLINICAL HISTORY: Weakness. Dizziness. COMPARISON STUDY: CT of the brain dated 12/31/2018. TECHNIQUE: Unenhanced axial CT scan of the brain is performed from the vertex to the skull base. A dose lowering technique was utilized adhering to the principles of ALARA. CT DOSE: 638.56 mGycm FINDINGS: Brain parenchyma: There are age-related involutional changes noting moderate subcortical and periventricular microangiopathic change. There is no hemorrhage, mass effect, or evidence of acute territorial ischemia by CT criteria. Marvin- white matter differentiation is preserved. No extra-axial fluid collection is seen. Ventricles, sulci, cisterns: Prominent secondary to involutional change. Intracranial vasculature: There is atherosclerotic calcification of the cave rnous carotid and vertebral arteries. Calvarium: Unremarkable. Sinuses and mastoids: The visualized paranasal sinuses are clear. The mastoid air cells are well pneumatized. Orbits: The bony orbits are grossly intact. IMPRESSION: There is no hemorrhage, mass effect, or evidence of acute territor ial ischemia by CT criteria. Electronically signed by: Carmelo Soni M.D. 02/28/2019 7:[address] chest wo con CT DOSE: 814.56 mGy.cm CLINICAL HISTORY: 74 years-old Male with fall, CXR ? pna vs atalectatsis. Acute chest trauma with fall. Bibasilar opacities described on comparison chest radiograph. TECHNIQUE: Multiaxial CT images of the chest were performed without contrast. A dose lowering technique was utilized adhering to the principles of ALARA. COMPARISON: Chest radiograph of same day, CTA chest 11/30/2017 FINDINGS: No focal thyroid nodule. Heart is mildly enlarged. No pericardial effusion. Coronary arterial calcifications are noted. Enlarged lymph node about the right tracheoesophageal recess measures 2.0 x 1.4 cm, previously 1.9 x 1.2 cm. Calcified bilateral hilar lymph nodes compatible with prior granulomatous disease. Small to moderate bilateral pleural effusions, unchanged. No pneumothorax. Bilateral mosaic attenuation. Linear subsegmental pleural based consolidative opacities are noted bilaterally within a bibasilar predominant distribution. Additional patchy bibasilar groundglass densities are noted. These findings ap pear similar to comparison. There are a few scattered calcific granulomata noted. Central airways appear patent. Hepatosplenomegaly with hepatic steatosis. Trace perisplenic ascites. Gynecomastia. Bones appear intact. No acute fracture identified. Multilevel degenerative changes about the spine. IMPRESSION: 1. Small to moderate bilateral pleural effusions appear unchanged. 2. Bibasilar predominant linear consolidative and groundglass densities are suggestive of probable atelectasis. Pneumonitis considered less likely. 3. Bilateral mosaic attenuation suggests areas of associated air trapping. 4. Prior granulomatous disease. 5. Cardiomegaly. 6. Hepatosplenomegaly with hepatic steatosis. 7. Trace left upper quadrant ascites. Electronically signed by: Lazaro Ortega M.D. 02/28/2019 8:18 AM ECG Data Attestation: I personally reviewed and interpreted this ECG as follows: Indication: weakness Rate (beats per minute): 91 Rhythm: normal sinus Findings: + other (non-specific t-wave changes in inferior and lateral leads); no PVC Comparison ECG Date: from (12/31/2018) Change: the following changes noted (non-specific t-wave changes slightly more pronounced) Blood Pressure Blood Pressure Findings: Normal blood pressure MDM Narrative 74-year-old male presenting via ambulance today with complaint of generalized weakness. Patient is a past medical history of heart failure, diabetes, hypertension, CKD, oxygen dependent COPD presented today with generalized weakness. States that he felt somewhat dizzy last night when walking with his walker and fell to the ground. States he laid there all night. Fell on his knees. Denies other traumatic injury or pain just in the bilateral knees. Patient evidently wanted to refuse but was unable to ambulate at the scene and brought here. X-rays were obtained here. CT the head was complete along with a chest x-ray. X-ray showed no acute traumatic injury of the bilateral knees. Chest x-ray with nonspecific bibasilar air opacities of unclear etiology atelectasis versus an formation/inflammatory process. EKG and basic laboratory studies were also obtained. EKG shows nonspecific T wave changes in the inferior lateral distributions somewhat more pronounced compared to the previous. Laboratory studies do interestingly show a significant leukocytosis of 20. New acute kidney injury with a creatinine of 3. Significantly elevated. Given some IV fluid hydration. Given aspirin with troponin elevation. Patient again denying any chest pain. Discussed with cardiology who does not recommend heparinization at this time. Discussed with hospitalist for admission for further hydration and trending of values. CT of the chest does not show significant evidence concerning for pneumonia at this time and I will defer treatment. Again discussed with the patient and hospitalist for admission. Impression & Plan Acute renal injury, Non-ST elevation VT (NSTEMI), Weakness, Fall Critical Care Time I have personally spent 30 minutes of critical care time in the direct management of this patient. This includes bedside care, interpretation of diagnostic studies, and testing, discussion with consultants, patient, and family members, and other required patient management activities. These 30 minutes is in excess of all separately billable procedures. Critical Care Time: Yes Total Critical Care Time: 30 : Fall Qualifiers: Encounter type: initial encounter Qualified Code(s): W19.XXXA - Unspecified fall, initial encounter The scribe's documentation has been prepared under my direction and personally reviewed by me in its entirety. I confirm that the note above accurately reflects all work, treatment, procedures, and medical decision making performed by me.
--- NOTE | 2019-02-28 09:23 | History & Physical Report ---
Date of Service February 28, 2019 Assessment & Plan (1) Anemia: Acute 4-5 g drop in hemoglobin over last month (reviewed outpatient labs) of unclear etiology. Pt does not recall any acute bleeding (no epistaxis, no hematuria, no hematochezia) - Trend H&H over next 24-36 hours - May need to consider transfusion pending trend and cardiac evaluation - ?elevated troponin due to demand - Check CT abd/pel due to RLQ pain on exam, unexplained drop in H&H - rule out retroperitoneal hematoma (no significant flank or abdominal ecchymosis noted on exam) CT personally reviewed - report states: IMPRESSION: 1. Large hemorrhagic lesion of the inferior pole right kidney measures up to 13.8 cm suggestive of a hemorrhagic cyst or hemorrhagic neoplasm. Hemorrhage from this lesion tracks along the subcapsular distribution and results in a large subcapsular hematoma which causes significant mass effect upon the right kidney. Correlate clinically to exclude page kidney. 2. Large complex cystic mass about the interpolar and inferior pole left kidney demonstrates marginal calcifications, mural nodularity and internal septations. Correlation with follow-up MRI renal mass protocol recommended to exclude neoplasm. 3. Multiple complex cystic lesions involve the bilateral kidneys as above. 4. No renal or ureteral calculi or obstructive uropathy. 5. Mild urinary bladder distention. 6. Small volume of abdominopelvic ascites. 7. Small bilateral pleural effusions with bibasilar opacities. Will consult urology for additional recommendations - pt to remain NPO for now. Following H&H for stability. Type and cross 2 units but will hold for now (2) Acute renal injury: Pt with limited oral intake over the past couple days due to loss of appetite - suspect SUKUMAR on CKD related to dehydration. However, pt with limited urine output since yesterday although no other urinary symptoms that he can recall (history of urinary incontinence at baseline - no worse than usual) - Pt received 500 cc IVF in ED - will give gentle IVF at 60 cc/hr and recheck labs in AM. - Consult nephrology for additional recommendations - this is a difficult situation as patient clinically appears dry with likely resultant SUKUMAR but also has a history of diastolic CHF requiring diuresis. - HOLD diuretics for now - Check renal U/S - evaluate for urinary retention. May need to consider Fuller U/S with bladder distention - Fuller placed by nursing with ~650 ml of urine immediately return. Present on Admission?: Yes (3) Weakness: Generalized weakness over past month. Noted to have new anemia on labs without clear source - Eventual PT/OT evaluation - suspect may need rehab again at D/C (4) Fall: Due to loss of balance when attempting to get into bed last night using walker - PT/OT as discussed above (5) Obstructive sleep apnea on CPAP: - Continue CPAP from home while admitted. (6) Anxiety: - Continue paroxetine as taken as home as well as clonazepam prn (7) GERD (gastroesophageal reflux disease): - Will change to Pepcid while patient admitted (8) COPD (chronic obstructive pulmonary disease): While pt does present with increased SOB and wheezing (subjective), it is unclear if symptoms truly related to a COPD exacerbation vs pneumonia vs component of CHF vs due to anemia - Start ATC nebs (DuoNeb) - Due to elevated procalcitonin and leukocytosis, will start antibiotics empirically with ceftriaxone and doxycycline - Hold steroids for now but may need to reconsider pending clinical course - Continue home O2 but titrate to maintain sats >90% (9) Essential hypertension: - Continue hydralazine and metoprolol but holding torsemide for now due to SUKUMAR (10) Diastolic heart failure: Pt does not appear significantly fluid overloaded on exam (actually appears dry) so holding diuretics - Check limited echo to evaluate for wall motion abnormality due to elevated troponin - Consult cardiology for additional recommendations - pt NPO until limited echo performed (11) Diabetes mellitus type 2 in obese: HOLD oral hypoglycemics - Accuchecks - sliding scale insulin - Lantus 10 units BID (baseline 29 units QHS) - check A1c in morning Patient seen and evaluated with collaborating physician, Dr. Sawyer. Plan of care discussed and as outlined above. Patient updated with most recent imaging study results. Further plan of care to be determined pending specialist input. Melanie Rankin PA-C History of Present Illness Chief Complaint: Fall, weakness Primary Care Provider: Keyon Rdz DO This is a 74 y/o male with a complicated PMH including O2 dependent COPD (2 L at baseline), DM2, CKD, diastolic CHF, hyperlipidemia, gout, depression, restrictive airway disease, RENE on CPAP HS, obesity and HTN who presented to the ED today via EMS after a fall at home. History obtained from both patient and his at the bedside. Pt states that he went to go to bed around 8 pm last evening. He was using his walked to get to the bed but lost his balance and slid to the floor - his buttocks took the brunt of the fall. He denies LOC or hitting his head. He was unable to get back up and his was unable to get him back up so he chose to sleep on the floor last night in hopes that he would be able to get himself up this morning. When he remained too weak this AM, his called 911 and pt was brought to the hospital. Currently, pt is seen in the ED with a complaint of generalized weakness and progressive dyspnea. He reports being discharged from [facility] about a month ago and was doing well at d/c. However, since being home he has noted increased weakness and dyspnea. He is no longer able to walk anything beyond a few steps. He has become more short of breath even at rest. When his notes wheezing, she will have patient use his nebulizer which does seem to help (he used this twice yesterday). He has also been using the CPAP during the day any time he lies down as well as at night. He describes a feeling of chest heaviness with inability to take a deep breath. Minimal cough. Denies sore throat, head/nasal congestion, rhinorrhea, sneezing, fevers, chills or sweats. No overt chest pain or palpitations that he can recall. He does have a headache. Notes dizziness with standing - this seemed to develop when he was on isosorbide which he has subsequently weaned off of but does not feel like this helped symptoms significantly. His weight has been fluctuating but his does think it has crept up overall - no significant worsening of chronic LE edema. His appetite is decreased with minimal oral intake yesterday - he reports struggling to balance drinking enough fluid to stay hydrated but not too much fluid because he worries about CHF. Denies nausea, vomiting, diarrhea, melena or hematochezia. His urine output has been decreased for the past 1-2 days - last urination was yesterday. Denies dysuria, hematuria, nocturia, urinary frequency. He does wear depends due to chronic issues with urinary incontinence. Allergies Allergy/AdvReac Type Severity Reaction Status Date / Time minoxidil Allergy Intermediate RASH Verified 02/28/19 06:54 venlafaxine Allergy Intermediate HTN, ELVIS Verified 02/28/19 06:54 amlodipine Allergy Unknown Unknown Verified 02/28/19 06:54 clonidine AdvReac Unknown INTOLERANT Verified 02/28/19 06:54 Home Medications Home Medications Medication Instructions Recorded Confirmed Type allopurinol 300 mg PO HS 11/30/18 02/28/19 History aspirin 81 mg PO QAM 11/30/18 02/28/19 History atorvastatin 20 mg PO HS 11/30/18 02/28/19 History clonazepam 1 mg PO BID PRN 11/30/18 02/28/19 History ferrous sulfate [iron] 325 mg PO BID 11/30/18 02/28/19 History glipizide 5 mg PO BID 11/30/18 02/28/19 History omeprazole 40 mg PO QAM 11/30/18 02/28/19 History paroxetine HCl 40 mg PO QAM 11/30/18 02/28/19 History trazodone 50 mg PO HS 12/31/18 02/28/19 History acetaminophen 650 mg PO Q4 PRN MDD 10 tablets 02/28/19 02/28/19 History daily docusate sodium [Colace] 100 mg PO BID 02/28/19 02/28/19 History hydralazine 25 mg PO TID 02/28/19 02/28/19 History insulin glargine [Lantus U-100 29 unit SUBCUT HS 02/28/19 02/28/19 History Insulin] metoprolol succinate 100 mg PO BID 02/28/19 02/28/19 History potassium chloride 20 meq PO QAM 02/28/19 02/28/19 History torsemide 40 mg PO QAM 02/28/19 02/28/19 History Past Med/Surg History Medical History Diabetes mellitus type 2 in obese (Chronic) Diastolic heart failure (Chronic) Essential hypertension (Chronic) COPD (chronic obstructive pulmonary disease) (Chronic) on 2 liters of O2 CKD (chronic kidney disease) stage 3, GFR 30-59 ml/min (Chronic) GERD (gastroesophageal reflux disease) (Chronic) Renal cyst (Chronic) Obstructive sleep apnea on CPAP (Chronic) Gout (Chronic) Dyslipidemia (Chronic) Restless leg syndrome (Chronic) GI bleed (Resolved 03/14/14) Anxiety (Chronic) Depression (Chronic) Essential tremor (Chronic) Restrictive airway disease (Chronic) SOB (shortness of breath) Surgical History H/O colonoscopy with polypectomy (Resolved) "2012 - polyps, adenomatous" History of pericardiotomy (Resolved) S/P tonsillectomy and adenoidectomy (Chronic) H/O colonoscopy (Chronic) " 04/09/2014- adenomatous & TVA polyps, diverticulosis 04/29/2015- normal " H/O esophagogastroduodenoscopy (Chronic) " 03/15/2014- mild-mod inflammation " Family History Other Family history non-contributory Social History Preferred Language: Amharic Communication Ability: Effective Visual Impairment: Limited Utility Maintenance Worker Required: No Beliefs That Will Affect Care: None marital status: Current Living Situation: Spouse Other Information That Helps Us Care for You: No Feels Safe at Home: Yes Safety Concerns: Feels Safe At This Time Smoking Status: Never smoker Second Hand Exposure: No Hx Alcohol Use: No Hx Substance Use: No Review of Systems Review of Systems: All systems reviewed & are unremarkable except as noted in HPI & below Constitutional: + fatigue, + weakness and + anorexia; no fever, no chills and no sweats Eyes: no diplopia and no worsening vision Ear, Nose, Mouth, Throat: no ear pain, no nasal congestion, no nasal discharge and no sore throat Respiratory: + cough (minimal), + dyspnea, + dyspnea on exertion and + wheezing; no chest congestion, no hemoptysis and no sputum production Cardiovascular: + orthopnea, + lightheadedness (with standing) and + edema (unchanged from baseline per pt); no chest pain, no palpitations, no syncope and no calf pain Gastrointestinal: + abdominal pain (mild RLQ); no bloating, no nausea, no vomiting, no change in bowel habits, no diarrhea/loose stools and no blood in stools Genitourinary: + urinary incontinence and + decreased urination; no dysuria, no urinary frequency, no nocturia and no hematuria Musculoskeletal: + swelling and + muscle weakness; no radicular pain Integumentary: no rash and no urticaria Neurologic: + falls (see HPI - loss of balance) and + headache(s); no seizure- like activity and no syncope Psychiatric: + anxiety Endocrine: + problem reported (Diabetes - sugars fluctuate (two days ago fasting 194, yesterday before lunch 228)) Physical Exam Constitutional: well developed, well nourished and + morbidly obese; no acute distress (although appears uncomfortable) Eyes: PERRL, conjunctivae normal, anicteric sclerae ENMT: Mouth: + oral mucosal abnormality (dry oral mucosa) Neck: trachea midline Respiratory: + tachypneic (28-32 bpm) Auscultation: + diminished lung sounds and + crackles (faint bibasilar); no wheezes Cardiovascular: Rate/Rhythm: regular rate and regular rhythm Heart Sounds: no gallop and no cardiac rub Extremities: normal capillary refill and + edema (trace LE to pretibial area); no calf tenderness Gastrointestinal (Abdomen): Inspection/Auscultation: + abdomen distended (mild) and normal bowel sounds Percussion/Palpation: + abdomen tender (mild RLQ) and abdomen soft; no guarding and abdomen not rigid Musculoskeletal: Head/Neck/Chest: normocephalic and head atraumatic Extremities: no cyanosis Skin: no rashes, warm and dry no jaundice Neurologic: moves all extremities Speech / Cognition: normal speech Psychiatric: Orientation: alert and oriented x 3 Affect: + flat affect Results & Data Vital Signs (Past 12 Hours) Vital Signs Temp Pulse Resp BP Pulse Ox 02/28/19 08:20 96 H 28 H 95 02/28/19 08:17 95 H 28 H 120/78 94 02/28/19 08:13 93 02/28/19 08:00 94 H 30 H 95 02/28/19 07:50 95 H 28 H 95 02/28/19 07:40 95 H 26 H 96 02/28/19 07:36 96 H 30 H 112/64 02/28/19 07:35 97 H 19 02/28/19 07:20 96 H 30 H 96 02/28/19 07:10 95 H 30 H 96 02/28/19 07:00 90 22 99 02/28/19 06:50 90 27 H 100 04/30/19 06:45 98 02/28/19 06:42 36.5 C 92 H 27 H 123/58 L 98 02/28/19 06:40 92 H 19 123/58 L 95 Laboratory Results Laboratory Results - last 24 hr 02/28/19 02/28/19 07:07 07:07 WBC 20.23 H RBC 2.62 L Hgb 7.5 L Hct 22.9 L MCV 87.4 MCH 28.6 MCHC 32.8 RDW Std Deviation 57.1 H RDW Coeff of Alfonso 17.9 H Plt Count 256 MPV 8.8 Immature Gran % (Auto) 0.9 Neut % (Auto) 83.8 Lymph % (Auto) 7.7 Ray % (Auto) 7.5 Eos % (Auto) 0.1 Baso % (Auto) 0.0 Immature Gran # (Auto) 0.19 H Neut # (Auto) 16.94 H Lymph # (Auto) 1.56 Ray # (Auto) 1.51 H Eos # (Auto) 0.02 Baso # (Auto) 0.01 Blood Smear Review RBC Morphology Unremarkable Sodium 137 Potassium 4.2 Chloride 99 Carbon Dioxide 30 Anion Gap 7.0 BUN 52 H Creatinine 3.05 H Est Cr Clr Drug Dosing 26.4 Est GFR ( Amer) 22.5 Est GFR (Non-Af Amer) 19.4 BUN/Creatinine Ratio 16.9 Glucose 127 H Calcium 9.0 Total Bilirubin 0.8 AST 23 ALT 16 Alkaline Phosphatase 92 Total Creatine Kinase 140 Troponin I 2.370 H* Total Protein 6.7 Albumin 2.8 L Globulin 3.9 Albumin/Globulin Ratio 0.7 L Lipase [address] Head 02/28/19 - IMPRESSION: There is no hemorrhage, mass effect, or evidence of acute territorial ischemia by CT criteria. Bilateral Knee X-ray 02/28/19 - IMPRESSION: No acute fracture or dislocation. Chest X-ray 02/28/19 - IMPRESSION: 1. Cardiomegaly without radiographic evidence of congestive failure. 2. Small pleural effusions. 3. Bibasilar airspace opacities are nonspecific and could represent atelectasis and/or an infectious/inflammatory pneumonitis. Clinical correlation will be required. Chest CT 02/28/19 - IMPRESSION: 1. Small to moderate bilateral pleural effusions appear unchanged. 2. Bibasilar predominant linear consolidative and groundglass densities are suggestive of probable atelectasis. Pneumonitis considered less likely. 3. Bilateral mosaic attenuation suggests areas of associated air trapping. 4. Prior granulomatous disease. 5. Cardiomegaly. 6. Hepatosplenomegaly with hepatic steatosis. 7. Trace left upper quadrant ascites. Medications Administered Discontinued Medications Acetaminophen (Tylenol) 1,000 mg PO NOW STA Stop: 02/28/19 06:56 Last Admin: 02/28/19 07:21 Dose: 1,000 mg Documented by: [id number] Aspirin (Aspirin Chew) 324 mg PO NOW STA Stop: 02/28/19 07:53 Last Admin: 02/28/19 08:27 Dose: 324 mg Documented by: [id number] Sodium Chloride (Nss 1000ml) 500 mls @ 999 mls/hr IV .Q31M ONE Stop: 02/28/19 08:05 Last Admin: 02/28/19 08:10 Dose: 999 mls/hr Documented by: [id number] Supervising Physician Co-Signing Physician Notes Patient is a 74-year-old male with history of multiple comorbidities presents with history of generalized weakness and fall at home. Patient had a mechanical fall resulting in hitting his buttocks and landing on the floor. He was unable to get up from the floor despite help from his who called 911 and was brought to the hospital. Patient states having progressively worsening dyspnea, and generalized weakness since discharge from rehab facility 1 month ago. Patient was noted to have elevated white blood cell count to indicate, his hemoglobin dropped from his baseline 11.5-6.9. He denied any bleeding issues. He was not on any blood thinners. He takes a baby aspirin daily. He was also noted to have SUKUMAR --creatinine increased from baseline 1.7 to 3.05 today. Was also noted to have abnormal UA but denies any urinary symptoms. He looks clinically dehydrated. CT chest showed small to moderate bilateral pleural effusion unchanged. Also showed bibasilar predominant linear consolidative and groundglass densities suggestive of possible atelectasis. CT abdomen showed large hemorrhagic lesion of the inferior pole of the right kidney measuring up to 13.8 cm suggestive of hemorrhagic cyst or hemorrhagic neoplasm. Hemorrhage from this lesion tracks along the subcapsular distribution results and large subcapsular hematoma which causes significant mass-effect upon the right kidney. Large complex cystic mass also noted on the left kidney. Patient had elevated procalcitonin of 2.42. His troponins are chronically elevated. Urology was consulted. As per urology, patient's large renal hemorrhage is of unclear etiology. Given the significant multiple comorbidities urology recommended to transfer the patient to tertiary center with access to interventional radiology as if he does not respond to blood transfusions, he will need embolization of the right kidney. Cardiology was consulted as well for input on elevated troponin. Cardiology believes that patient has type II demand ischemia likely related to significant anemia. Patient is started on IV ceftriaxone and doxycycline. Patient is currently being transfused 2 units of PRBCs. His diuretics are held. His aspirin is held. Fuller catheter was placed and had 650 mL urine return. On exam patient is obese, ill-appearing, normocephalic atraumatic, decreased breath sounds, crackles at bases, S1-S2, no audible murmur, tachycardia, abdomen soft, right lower quadrant tenderness, distended, bowel sounds present, grossly no neurological focal deficits, trace pedal edema. Patient's condition is discussed with the patient and family. On recommendations from urology, patient will be transferred to [facility] for further management. Patient and family agreed with the plan. Patient is accepted by Dr. Jean Felix at [facility]. I personally reviewed the record. Patient is interviewed and examined at bedside. Patient's care is coordinated with Jordana Rankin PA-C . Please refer to the documentation above for details of patient's presentation and for discussion of other issues. (1) Anemia Anemia type: unspecified type Qualified Code(s): D64.9 - Anemia, unspecified (2) Fall Encounter type: initial encounter Qualified Code(s): W19.XXXA - Unspecified fall, initial encounter
[2019-02-28] MEDS ORDERED: PERFLUTREN LIPID MICROSPHERE (DEFINITY) IV ONE (10:23)
--- NOTE | 2019-02-28 11:04 | Ultrasound Report ---
US retro bladder ltd HISTORY: 74 years-old Male SUKUMAR, decreased urine output acute kidney injury COMPARISON: CT abdomen and pelvis of same day TECHNIQUE: Multiple real-time significant images of the kidneys and urinary bladder were obtained ass essing grayscale appearance and color flow FINDINGS: Mildly prominent prostate. Urinary bladder measures up to 16.3 x 8.9 x 9.9 cm with volume of 752 mL. Suggestion of mild layering debris within the urinary bladder lumen. The patient denied voiding. No p ost void images were obtained. Mild bladder wall thickening with trabeculation. There is a large subcapsular hematoma about the right kidney measuring up to 6.9 cm in length. This c ompresses the normal renal parenchyma. Cystic lesions of the right kidney are better characterized on CT study of same day. No definite right-sided renal calculi or hydronephrosis. No definite left-sided renal calculi or hydronephrosis. There are multiple complex cystic lesions abo ut the left kidney which demonstrate areas of layering hemorrhage and complexity without internal kaitlin w. The largest complex lesion measures up to 17.2 cm in length. IMPRESSION: 1. Markedly abnormal appearance of the bilateral kidneys. There is a large subcapsular hematoma about the right kidney which compresses the renal parenchyma. Correlate clinically to exclude page kidney. 2. Multiple complex cystic lesions of the left kidney, largest of which measures over 17 cm in length demonstrating layering internal hyperdense material and mural nodularity suspicious for hemorrhagic neoplasm. Correlate with CT study of same day. 3. Mild urinary bladder distention. The above report was generated using voice recognition software. It may contain grammatical, syntax o r spelling errors. Electronically signed by: Lazaro Ortega M.D. 02/28/2019 11:03 AM
[2019-02-28] MEDS ORDERED: clonazePAM 1 MG TAB PO PRN (11:18)
[2019-02-28] MEDS ORDERED: CARBOHYDRATES FOR HYPOGLYCEMIA PO PRN (11:20)
[2019-02-28] MEDS ORDERED: GLUCOSE 10 TABS/TUBE PO PRN (11:20)
[2019-02-28] MEDS ORDERED: GLUCOSE 40% GEL 15 GM TUBE PO PRN (11:20)
[2019-02-28] MEDS ORDERED: GLUCAGON FOR INJ 1 MG VIAL SQ PRN (11:20)
[2019-02-28] MEDS ORDERED: DEXTROSE 50% 50 ML SYRINGE IV PRN (11:20)
[2019-02-28] MEDS ORDERED: SODIUM CHLORIDE 0.9% 1000ML 1,000 ML IV SCH (11:30)
[2019-02-28] MEDS ORDERED: INSULIN ASPART 100 UNITS/ML 3 ML PEN SC SCH (11:30)
[2019-02-28] MEDS: ALBUT/IPRATROP 3MG/0.5MG NEB 3 ML VIAL NEB SCH ×3 (11:39→18:47)
--- NOTE | 2019-02-28 11:56 | CT Scan Report ---
ABDOMEN AND PELVIS CT WITHOUT CONTRAST CT DOSE: 2043.32 mGy.cm HISTORY: Acute right lower quadrant abdominal pain with anemia. RLQ pain, drop in H H TECHNIQUE: Multiaxial CT images of the abdomen and pelvis were performed without contrast. A dose lo wering technique was utilized adhering to the principles of ALARA. COMPARISON STUDY: Renal ultrasound of same day, chest CT 02/28/2019, renal ultrasound 03/10/2007. FINDINGS: Small bilateral pleural effusions. Mild subsegmental bibasilar opacities suggest atelectasis or pneum onitis. No pneumatosis or pneumoperitoneum. Decreased attenuation of the cardiac blood pool is sugges tive of probable anemia. Imaged inferior cardiac chambers are enlarged with coronary arterial calcifi cations noted. Layering cholelithiasis about the gallbladder neck. No CT evidence of acute cholecystitis. No biliary ductal dilation. Hepatic steatosis. Spleen is enlarged measuring up to 18.5 cm in length. Pancreas a nd adrenal glands appear unremarkable. There is a large complex cystic lesion with peripheral calcifications and internal complexity noted a bout the inferior pole left kidney measuring up to 16.9 x 15.5 x 15.6 cm demonstrating apparent septa tions and mural nodularity along its superior margins. Additionally, there are suggested proteinaceou s or hemorrhagic cysts about the superior and interpolar left kidney measuring up to approximately 2. 1 cm. Mild left-sided perinephric stranding without ureteral calculi or hydronephrosis. Multiple simple and complex cystic lesions about the right kidney are also noted including a large he morrhagic lesion of the interpolar right kidney measuring up to 13.8 x 11.7 x 10.3 cm. There is assoc iated large subcapsular hematoma about the right kidney measuring over 4 cm in transverse dimension. This causes significant mass effect upon the right kidney. No right-sided renal calculi or hydronephr osis. Cystic lesion measuring 10 cm is noted about the superior pole right kidney. Mild wall thickeni ng and distention of the urinary bladder. Moderate fat filled bilateral hernias. No aortic aneurysm or adenopathy. Small volume of abdominopelvic ascites. No bowel obstruction or foc al bowel wall thickening. Terminal ileum and appendix appear normal. The soft tissues are within norm al limits. Bones appear to be intact. IMPRESSION: 1. Large hemorrhagic lesion of the inferior pole right kidney measures up to 13.8 cm suggestive of a hemorrhagic cyst or hemorrhagic neoplasm. Hemorrhage from this lesion tracks along the subcapsular di stribution and results in a large subcapsular hematoma which causes significant mass effect upon the right kidney. Correlate clinically to exclude page kidney. 2. Large complex cystic mass about the interpolar and inferior pole left kidney demonstrates marginal calcifications, mural nodularity and internal septations. Correlation with follow-up MRI renal mass protocol recommended to exclude neoplasm. 3. Multiple complex cystic lesions involve the bilateral kidneys as above. 4. No renal or ureteral calculi or obstructive uropathy. 5. Mild urinary bladder distention. 6. Small volume of abdominopelvic ascites. 7. Small bilateral pleural effusions with bibasilar opacities. 8. Additional findings as above. Electronically signed by: Lazaro Ortega M.D. 02/28/2019 11:54 AM
[2019-02-28] MEDS ORDERED: DOXYCYCLINE HYCLATE 100 MG in DEXTROSE 5% 100 ML IV SCH (12:00)
[2019-02-28] MEDS ORDERED: cefTRIAXone SODIUM 2,000 MG in DEXTROSE 5% 50 ML IV SCH (12:00)
[2019-02-28] MEDS ORDERED: SODIUM CHLORIDE 0.9% 250 ML IV PRN ×2 (12:03→13:17)
[2019-02-28] MEDS ORDERED: Nursing to Pharmacy Communication ONE (12:37)
[2019-02-28] MEDS: INSULIN ASPART 100 UNITS/ML 3 ML PEN SC SCH ×2 (13:00→18:28)
[2019-02-28 13:07] LABS: Hematocrit (blood only) 21.1 % (42-52); Hemoglobin 6.9 g/dL (14.0-18.0)
[2019-02-28 13:20] LABS: Appearance Urine Cloudy (Clear); Bilirubin Urine Negative (Negative); Blood Urine Negative (Negative); Color Urine Yellow; Epithelial Cell Urine Auto >30 /lpf (0-5); Glucose Urine UA Negative (Negative); Ketones Urine Negative (Negative); Leukocyte Esterase Urine Negative (Negative); Nitrite Urine Negative (Negative); Protein Urine 1+ (Negative); RBC Urine Automated 0-4 /hpf (0-4); Specific Gravity Urine 1.021 (1.000-1.030); Urobilinogen Urine Negative (Negative)
[2019-02-28 13:47] LABS: Bacteria Urine Automated 2+ (Negative)
--- NOTE | 2019-02-28 15:02 | Operative Report ---
Post Operative Report Pre & Post Diagnosis left obstructing ureteral stone Procedure cysto left ureteroscopy laser litho basket stone extraction stent Surgeon Juana Reyes MD Sales Apprentice none Estimated Blood Loss 1 Findings Consistent with Post-Op Diagnosis radio-opaque left upper ureteral stone Fluids 300 Specimens left ureteral stone fragments Drains 6 Fr 24 centimeter double J stent on a string Anesthesia Type General Complications none Disposition Accompanied Patient To Recovery: Yes Disposition: Recovery Room Indications large obstructing left upper ureteral stone Description of Procedure cysto left ureteroscopy laser litho basket stone extraction stent Patient was given general LMA anesthesia and placed in lithotomy position. His genitals were prepped and draped in sterile fashion. Time out held with team. I placed a 21 fr rigid cystoscope to bladder. The urethra is unremarkable. The prostate is small and short but does raise the bladder neck a bit. The UOs are laterally displaced a oval shape. I placed a road runner wire up left ureter easily and used a 5 fr to exchange to a road runner wire. I then passed a dual lumen to place a second wire and it passed easily. I passed the flexible ureteroscope over the second wire to the mid ureter. I then passed the scope up the rest of the left ureter under vision. Ureter is of a nice caliber. the stone has been pushed into the renal pelvis. the stone is 70% becerra crystalline soft outer shell with a small dark brown harder core. I used a 270 micron holmium laser to fragment the stone into small pieces. I used a 1.9 fr zero tip basket to remove the medium and small pieces leaving only sugar crystal sized pieces. I placed a 24 centimeter 6 Fr double J stent easily. I left the string exiting the urethra. There is brisk efflux after placement. I left bladder empty and concluded case. I placed a belladonna and opium suppository for post- op pain. His prostate is 30 grams and normal surface texture smooth. He transferred to recovery under my escort, in stable condition. Plan: Home tomorrow Pyridium for dysuria x 3 days flomax daily stent out via string in 72 hours (wednesday) oral pain meds as needed ASA 3 clean contaminated case 19 seconds fluoro ceftriaxone at 11pm I attest to the content of the Intraoperative Record and any orders documented therein. Any exceptions are noted below.
--- NOTE | 2019-02-28 15:13 | Cardiology Consultation ---
Date of Consultation February 28, 2019 Assessment & Plan (1) Anemia: Due to a large hemorrhage from a renal mass. The anemia could explain the majority of the patient's symptoms. (2) Diabetes mellitus type 2 in obese: (3) Diastolic heart failure: (4) CKD (chronic kidney disease) stage 3, GFR 30-59 ml/min: (5) Weakness: (6) Fall: (7) Troponin level elevated: The troponin elevation I believe is type II and not related to ACS. EKG changes are consistent with left ventricular hypertrophy which was noted on his most recent echocardiogram. History of Present Illness Attending Physician: Chalo Sawyer MD History of Present Illness This is a 74-year-old morbidly obese diabetic male with a history of chronic diastolic heart failure who has had progressive symptoms of weakness, fatigue, dizziness and multiple falls. The patient has been admitted and found to be profoundly anemic. CT the abdomen indicates hemorrhage from a renal mass. He has had no recent cardiac problems. He is chronically short of breath. He has no recent history of chest pain. Allergies Allergy/AdvReac Type Severity Reaction Status Date / Time minoxidil Allergy Intermediate RASH Verified 02/28/19 06:54 venlafaxine Allergy Intermediate HTN, SHAKEY Verified 02/28/19 06:54 amlodipine Allergy Unknown Unknown Verified 02/28/19 06:54 clonidine AdvReac Unknown INTOLERANT Verified 02/28/19 06:54 Home Medications Home Medications Medication Instructions Recorded Confirmed Type allopurinol 300 mg PO HS 11/30/18 02/28/19 History aspirin 81 mg PO QAM 11/30/18 02/28/19 History atorvastatin 20 mg PO HS 11/30/18 02/28/19 History clonazepam 1 mg PO BID PRN 11/30/18 02/28/19 History ferrous sulfate [iron] 325 mg PO BID 11/30/18 02/28/19 History glipizide 5 mg PO BID 11/30/18 02/28/19 History omeprazole 40 mg PO QAM 11/30/18 02/28/19 History paroxetine HCl 40 mg PO QAM 11/30/18 02/28/19 History trazodone 50 mg PO HS 12/31/18 02/28/19 History acetaminophen 650 mg PO Q4 PRN MDD 10 tablets 02/28/19 02/28/19 History daily docusate sodium [Colace] 100 mg PO BID 02/28/19 02/28/19 History hydralazine 25 mg PO TID 02/28/19 02/28/19 History insulin glargine [Lantus U-100 29 unit SUBCUT HS 02/28/19 02/28/19 History Insulin] metoprolol succinate 100 mg PO BID 02/28/19 02/28/19 History potassium chloride 20 meq PO QAM 02/28/19 02/28/19 History torsemide 40 mg PO QAM 02/28/19 02/28/19 History Patient History Medical History Diabetes mellitus type 2 in obese (Chronic) Diastolic heart failure (Chronic) Essential hypertension (Chronic) COPD (chronic obstructive pulmonary disease) (Chronic) on 2 liters of O2 CKD (chronic kidney disease) stage 3, GFR 30-59 ml/min (Chronic) GERD (gastroesophageal reflux disease) (Chronic) Renal cyst (Chronic) Obstructive sleep apnea on CPAP (Chronic) Gout (Chronic) Dyslipidemia (Chronic) Restless leg syndrome (Chronic) GI bleed (Resolved 03/14/14) Anxiety (Chronic) Depression (Chronic) Essential tremor (Chronic) Restrictive airway disease (Chronic) SOB (shortness of breath) Surgical History H/O colonoscopy with polypectomy (Resolved) "2012 polyps, adenomatous" History of pericardiotomy (Resolved) S/P tonsillectomy and adenoidectomy (Chronic) H/O colonoscopy (Chronic) " 04/09/2014- adenomatous & TVA polyps, diverticulosis 04/29/2015- normal " H/O esophagogastroduodenoscopy (Chronic) " 03/15/2014- mild-mod inflammation " Family History Other Family history non-contributory Social History Preferred Language: Vietnamese Communication Ability: Effective Visual Impairment: Limited Emergency Dispatcher Required: No Beliefs That Will Affect Care: None marital status: Current Living Situation: Spouse Other Information That Helps Us Care for You: No Feels Safe at Home: Yes Safety Concerns: Feels Safe At This Time Smoking Status: Never smoker Second Hand Exposure: No Hx Alcohol Use: No Hx Substance Use: No Review of Systems Review of Systems: Review of Systems: See HPI for pertinent positives. All other 10 point review of systems are negative. Physical Exam Physical Exam: General: Morbidly obese Head: normocephalic, no masses, lesions, tenderness or abnormalities Eyes: conjunctiva are pink and non-injected, sclera clear Neck: supple, no adenopathy, no bruits, normal jugular venous pulse, no hepatojugular reflux Chest: normal shape and normal respiratory effort Lungs: clear to auscultation and percussion Cardiac Exam: - regular rate & rhythm, no murmurs gallops or rubs - normal S1, normal S2 Pulses: 2(+) throughout Abdomen: Distended and nontender Musculoskeletal: no gait disturbance, no joint inflammation, no deforming arthritis Extremities: no edema and no cyanosis Neuro: grossly normal exam Results & Data Vital Signs (Past 12 Hours) Vital Signs Temp Pulse Pulse Resp BP BP Pulse Ox 02/28/19 14:54 87 18 99 02/28/19 14:21 36.7 C 86 18 104/65 97 02/28/19 14:06 36.8 C 90 18 109/69 98 02/28/19 13:49 36.6 C 86 18 109/69 98 02/28/19 11:41 86 18 98 02/28/19 11:26 36.4 C L 22 114/71 98 02/28/19 10:22 107/65 02/28/19 10:20 91 H 20 107/65 98 02/28/19 09:50 92 H 25 H 98 02/28/19 09:40 92 H 26 H 99 02/28/19 09:31 95 H 32 H 114/71 97 02/28/19 09:30 94 H 26 H 96 02/28/19 09:20 93 H 21 98 02/28/19 09:10 91 H 26 H 99 02/28/19 09:01 93 H 24 121/68 98 02/28/19 09:00 94 H 26 H 98 02/28/19 08:50 93 H 26 H 98 02/28/19 08:40 94 H 27 H 98 02/28/19 08:31 98 H 28 H 132/76 97 02/28/19 08:30 98 H 29 H 96 02/28/19 08:20 96 H 28 H 95 02/28/19 08:17 95 H 28 H 120/78 94 02/28/19 08:13 93 02/28/19 08:00 94 H 30 H 95 02/28/19 07:50 95 H 28 H 95 02/28/19 07:40 95 H 26 H 96 02/28/19 07:36 96 H 30 H 112/64 02/28/19 07:35 97 H 19 02/28/19 07:20 96 H 30 H 96 02/28/19 07:10 95 H 30 H 96 02/28/19 07:00 90 22 99 02/28/19 06:50 90 27 H 100 02/28/19 06:45 98 02/28/19 06:42 36.5 C 92 H 27 H 123/58 L 98 02/28/19 06:40 92 H 19 123/58 L 95 Laboratory Results Laboratory Results - last 24 hr 02/28/19 02/28/19 02/28/19 07:07 07:07 09:31 WBC 20.23 H RBC 2.62 L Hgb 7.5 L Hct 22.9 L MCV 87.4 MCH 28.6 MCHC 32.8 RDW Std Deviation 57.1 H RDW Coeff of Alfonso 17.9 H Plt Count 256 MPV 8.8 Immature Gran % (Auto) 0.9 Neut % (Auto) 83.8 Lymph % (Auto) 7.7 [place] % (Auto) 7.5 Eos % (Auto) 0.1 Baso % (Auto) 0.0 Immature Gran # (Auto) 0.19 H Neut # (Auto) 16.94 H Lymph # (Auto) 1.56 [place] # (Auto) 1.51 H Eos # (Auto) 0.02 Baso # (Auto) 0.01 Blood Smear Review RBC Morphology Unremarkable Sodium 137 Potassium 4.2 Chloride 99 Carbon Dioxide 30 Anion Gap 7.0 BUN 52 H Creatinine 3.05 H Est Cr Clr Drug Dosing 26.4 Est GFR ( Amer) 22.5 Est GFR (Non-Af Amer) 19.4 BUN/Creatinine Ratio 16.9 Glucose 127 H POC Glucose Lactate 1.1 Calcium 9.0 Total Bilirubin 0.8 AST 23 ALT 16 Alkaline Phosphatase 92 Total Creatine Kinase 140 Troponin I 2.370 H* Total Protein 6.7 Albumin 2.8 L Globulin 3.9 Albumin/Globulin Ratio 0.7 L Lipase 105 Procalcitonin Urine Color Urine Appearance Urine pH Ur Specific [place] Urine Protein Urine Glucose (UA) Urine Ketones Urine Blood Urine Nitrite Urine Bilirubin Urine Urobilinogen Ur Leukocyte Esterase Urine WBC (Auto) Urine RBC (Auto) U Hyaline Cast (Auto) U Epithel Cells (Auto) Urine Bacteria (Auto) Granular Casts Urine Yeast Blood Type Antibody Screen Crossmatch 02/28/19 02/28/19 02/28/19 09:31 11:09 12:19 WBC RBC Hgb 6.9 L* Hct 21.1 L MCV MCH MCHC RDW Std Deviation RDW Coeff of Alfonso Plt Count MPV Immature Gran % (Auto) Neut % (Auto) Lymph % (Auto) [place] % (Auto) Eos % (Auto) Baso % (Auto) Immature Gran # (Auto) Neut # (Auto) Lymph # (Auto) [place] # (Auto) Eos # (Auto) Baso # (Auto) Blood Smear Review RBC Morphology Sodium Potassium Chloride Carbon Dioxide Anion Gap BUN Creatinine Est Cr Clr Drug Dosing Est GFR ( Amer) Est GFR (Non-Af Amer) BUN/Creatinine Ratio Glucose POC Glucose 125 H Lactate Calcium Total Bilirubin AST ALT Alkaline Phosphatase Total Creatine Kinase Troponin I Total Protein Albumin Globulin Albumin/Globulin Ratio Lipase Procalcitonin 2.42 H Urine Color Urine Appearance Urine pH Ur Specific [place] Urine Protein Urine Glucose (UA) Urine Ketones Urine Blood Urine Nitrite Urine Bilirubin Urine Urobilinogen Ur Leukocyte Esterase Urine WBC (Auto) Urine RBC (Auto) U Hyaline Cast (Auto) U Epithel Cells (Auto) Urine Bacteria (Auto) Granular Casts Urine Yeast Blood Type Antibody Screen Crossmatch 02/28/19 02/28/19 02/28/19 12:19 12:19 12:56 WBC RBC Hgb Hct MCV MCH MCHC RDW Std Deviation RDW Coeff of Alfonso Plt Count MPV Immature Gran % (Auto) Neut % (Auto) Lymph % (Auto) [place] % (Auto) Eos % (Auto) Baso % (Auto) Immature Gran # (Auto) Neut # (Auto) Lymph # (Auto) [place] # (Auto) Eos # (Auto) Baso # (Auto) Blood Smear Review RBC Morphology Sodium Potassium Chloride Carbon Dioxide Anion Gap BUN Creatinine Est Cr Clr Drug Dosing Est GFR ( Amer) Est GFR (Non-Af Amer) BUN/Creatinine Ratio Glucose POC Glucose Lactate Calcium Total Bilirubin AST ALT Alkaline Phosphatase Total Creatine Kinase Troponin I 1.870 H* Total Protein Albumin Globulin Albumin/Globulin Ratio Lipase Procalcitonin Urine Color Yellow Urine Appearance Cloudy H Urine pH 5.0 Ur Specific [place] 1.021 Urine Protein 1+ H Urine Glucose (UA) Negative Urine Ketones Negative Urine Blood Negative Urine Nitrite Negative Urine Bilirubin Negative Urine Urobilinogen Negative Ur Leukocyte Esterase Negative Urine WBC (Auto) 5-10 H Urine RBC (Auto) 0-4 U Hyaline Cast (Auto) 5-10 H U Epithel Cells (Auto) >30 H Urine Bacteria (Auto) 2+ H Granular Casts 5-10 H Urine Yeast Not Reportable Blood Type AB Positive Antibody Screen NEGATIVE Crossmatch See Detail Medications Administered Current Inpatient Medications Albuterol (Duoneb) 3 ml NEB QIDR [facility] Stop: 03/30/19 11:59 Last Admin: 02/28/19 14:50 Dose: 3 ml Documented by: Allopurinol (Zyloprim) 300 mg PO HS [facility] Stop: 03/30/19 20:59 Atorvastatin Calcium (Lipitor) 20 mg PO HS [facility] Stop: 03/30/19 20:59 Clonazepam (Klonopin) 1 mg PO BID PRN PRN Reason: Anxiety Stop: 03/30/19 11:17 Dextrose (Dextrose 50%) 25 - 50 ml IV UD PRN; Protocol PRN Reason: Hypoglycemia Protocol Stop: 03/30/19 11:19 Famotidine (Pepcid) 20 mg PO QAM [facility] Stop: 03/31/19 08:59 Glucagon (Glucagen) 1 mg SQ UD PRN; Protocol PRN Reason: Hypoglycemia Protocol Stop: 03/30/19 11:19 Glucose (Glucose 40%) 15 - 30 gm PO UD PRN; Protocol PRN Reason: Hypoglycemia Protocol Stop: 03/30/19 11:19 Glucose (Dex4 Glucose) 4 - 8 tabs PO UD PRN; Protocol PRN Reason: Hypoglycemia Protocol Stop: 03/30/19 11:19 Hydralazine HCl (Apresoline) 25 mg PO TID [facility] Stop: 03/30/19 13:59 Last Admin: 02/28/19 13:03 Dose: 25 mg Documented by: Sodium Chloride (Nss 1000ml) 1,000 mls @ 60 mls/hr IV .[id number] [facility] Stop: 03/01/19 04:09 Last Admin: 02/28/19 12:29 Dose: 60 mls/hr Documented by: Ceftriaxone Sodium 2,000 mg/ (Dextrose) 50 mls @ 100 mls/hr IV Q24H [facility]ON[facility]AL[facility]; Protocol Stop: 03/07/19 11:59 Last Infusion: 02/28/19 12:59 Dose: Infused Documented by: Doxycycline Hyclate 100 mg/ (Dextrose) 110 mls @ 50 mls/hr IV Q12H [facility]; Protocol Stop: 03/07/19 11:59 Last Admin: 02/28/19 13:02 Dose: 50 mls/hr Documented by: Sodium Chloride (Nss) 250 mls @ 15 mls/hr IV .[id number] PRN PRN Reason: For Transfusion Stop: 03/30/19 13:16 Insulin Aspart (Novolog Flexpen) 0 units SC Q6 [facility] Stop: 03/30/19 12:44 Last Admin: 02/28/19 13:00 Dose: Not Given Documented by: Insulin Glargine (Lantus Solostar Pen) 10 units SC BID [facility] Stop: 03/30/19 20:59 Metoprolol Succinate (Toprol Xl) 100 mg PO BID [facility] Stop: 03/30/19 20:59 Miscellaneous (Carbohydrates For Hypoglycemia) 15 - 30 gm PO UD PRN PRN Reason: Hypoglycemia Treatment Stop: 03/30/19 11:19 Paroxetine HCl (Paxil) 40 mg PO QAM [facility] Stop: 03/31/19 08:59 Potassium Chloride (Klor-Con M20) 20 meq PO QAM [facility] Stop: 03/31/19 08:59 Trazodone HCl (Desyrel) 50 mg PO HS [facility] Stop: 03/30/19 20:59 (1) Anemia Anemia type: unspecified type Qualified Code(s): D64.9 - Anemia, unspecified (2) Fall Encounter type: initial encounter Qualified Code(s): W19.XXXA - Unspecified fall, initial encounter
--- NOTE | 2019-02-28 16:01 | Urology Consultation ---
Date of Consultation February 28, 2019 Assessment & Plan (1) Renal hemorrhage, right: He has a right large renal hemorrhage of uncertain etiology He has serious multiple comorbid disease. I feel he is best transferred to a tertiary center with access to interventional radiology as if he does not respond to the transfusion he will need embolization of that right kidney. His COPD, and left heart failure will make fluid management very difficult. Once he is stabilized he will need repeat imaging of both kidneys hopefully with dye if his renal function will allow. Present on Admission?: Yes History of Present Illness Reason for Consultation: right renal hemorrhage Requesting Physician: Dr Sawyer Attending Physician: Chalo Sawyer MD History of Present Illness I am asked by Dr Sawyer to evaluate and treat patient for right renal hemorrhage. Patient presented to ER with acute weakness. he was found to be anemic. CT scan shows a fresh bleed from the right kidney cystic masses. Without dye it is hard to make more comments about the right kidney process. He also has a suspicious mass left kidney without hemorrhage. Patient has not had abdominal pain for swelling or pressure. he had a fall 4 weeks ago and yesterday. He is not on any anticoagulation. he takes a baby asa per day. He is chronically severely ill due to COPD oxygen dependent and was hospitalized in Dec 2018 with fluid overload and then went to rehab. his baseline functional status is completely sedentary from bed to couch only. He is currently receiving rbc transfusion. Allergies Allergy/AdvReac Type Severity Reaction Status Date / Time minoxidil Allergy Intermediate RASH Verified 02/28/19 06:54 venlafaxine Allergy Intermediate HTN, SHAKEY Verified 02/28/19 06:54 amlodipine Allergy Unknown Unknown Verified 02/28/19 06:54 clonidine AdvReac Unknown INTOLERANT Verified 02/28/19 06:54 Home Medications Home Medications Medication Instructions Recorded Confirmed Type allopurinol 300 mg PO HS 11/30/18 02/28/19 History aspirin 81 mg PO QAM 11/30/18 02/28/19 History atorvastatin 20 mg PO HS 11/30/18 02/28/19 History clonazepam 1 mg PO BID PRN 11/30/18 02/28/19 History ferrous sulfate [iron] 325 mg PO BID 11/30/18 02/28/19 History glipizide 5 mg PO BID 11/30/18 02/28/19 History omeprazole 40 mg PO QAM 11/30/18 02/28/19 History paroxetine HCl 40 mg PO QAM 11/30/18 02/28/19 History trazodone 50 mg PO HS 12/31/18 02/28/19 History acetaminophen 650 mg PO Q4 PRN MDD 10 tablets 02/28/19 02/28/19 History daily docusate sodium [Colace] 100 mg PO BID 02/28/19 02/28/19 History hydralazine 25 mg PO TID 02/28/19 02/28/19 History insulin glargine [Lantus U-100 29 unit SUBCUT HS 02/28/19 02/28/19 History Insulin] metoprolol succinate 100 mg PO BID 02/28/19 02/28/19 History potassium chloride 20 meq PO QAM 02/28/19 02/28/19 History torsemide 40 mg PO QAM 02/28/19 02/28/19 History Patient History Medical History Diabetes mellitus type 2 in obese (Chronic) Diastolic heart failure (Chronic) Essential hypertension (Chronic) COPD (chronic obstructive pulmonary disease) (Chronic) on 2 liters of O2 CKD (chronic kidney disease) stage 3, GFR 30-59 ml/min (Chronic) GERD (gastroesophageal reflux disease) (Chronic) Renal cyst (Chronic) Obstructive sleep apnea on CPAP (Chronic) Gout (Chronic) Dyslipidemia (Chronic) Restless leg syndrome (Chronic) GI bleed (Resolved 03/14/14) Anxiety (Chronic) Depression (Chronic) Essential tremor (Chronic) Restrictive airway disease (Chronic) SOB (shortness of breath) Surgical History H/O colonoscopy with polypectomy (Resolved) "2012 - polyps, adenomatous" History of pericardiotomy (Resolved) S/P tonsillectomy and adenoidectomy (Chronic) H/O colonoscopy (Chronic) " 04/09/2014- adenomatous & TVA polyps, diverticulosis 04/29/2015- normal " H/O esophagogastroduodenoscopy (Chronic) " 03/15/2014- mild-mod inflammation " Family History Other Family history non-contributory Social History Preferred Language: Yi Communication Ability: Effective Visual Impairment: Limited Barge Hand Required: No Beliefs That Will Affect Care: None marital status: Current Living Situation: Spouse Other Information That Helps Us Care for You: No Feels Safe at Home: Yes Safety Concerns: Feels Safe At This Time Smoking Status: Never smoker Second Hand Exposure: No Hx Alcohol Use: No Hx Substance Use: No Review of Systems Review of Systems: PMh- diastolic heart failure, GERD, h/o gi bleed, HTN, DM, restless legs, obesity, COPD Soc- no tobacco or alcohol, retired, used to work construction Fam hx- no history of renal failure or cancer ROS- ++ weakness, ++ poor appetite, no chest pain, no swelling, no shortness of breath, bowels fine, no rash, vision is fine. + frequent falls. Physical Exam Constitutional: well developed, + obese, well groomed, cooperative and comfortable Respiratory: normal respiratory effort; no respiratory distress, does not use accessory muscles and no nasal flaring Gastrointestinal (Abdomen): Inspection/Auscultation: abdomen normal to inspection and + abdomen distended Percussion/Palpation: + abdomen tender; no abdominal mass and no fluid wave He is tender to deep palpation but no peritoneal signs. no ecchymosis, no palpable mass, he has a big belly but he and his affirm it is no bigger or firmer than his usual baseline Psychiatric: A+Ox3, euthymic affect Genitourinary: finch catheter in place draining yellow urine with tiny flecks of mucous Results & Data Vital Signs (Past 12 Hours) Vital Signs Temp Pulse Pulse Resp BP BP Pulse Ox 02/28/19 14:54 87 18 99 02/28/19 14:51 36.5 C 85 18 109/68 98 02/28/19 14:21 36.7 C 86 18 104/65 97 02/28/19 14:06 36.8 C 90 18 109/69 98 02/28/19 13:49 36.6 C 86 18 109/69 98 02/28/19 11:41 86 18 98 02/28/19 11:26 36.4 C L 22 114/71 98 02/28/19 10:22 107/65 02/28/19 10:20 91 H 20 107/65 98 02/28/19 09:50 92 H 25 H 98 02/28/19 09:40 92 H 26 H 99 02/28/19 09:31 95 H 32 H 114/71 97 02/28/19 09:30 94 H 26 H 96 02/28/19 09:20 93 H 21 98 02/28/19 09:10 91 H 26 H 99 02/28/19 09:01 93 H 24 121/68 98 02/28/19 09:00 94 H 26 H 98 02/28/19 08:50 93 H 26 H 98 02/28/19 08:40 94 H 27 H 98 02/28/19 08:31 98 H 28 H 132/76 97 02/28/19 08:30 98 H 29 H 96 02/28/19 08:20 96 H 28 H 95 02/28/19 08:17 95 H 28 H 120/78 94 02/28/19 08:13 93 02/28/19 08:00 94 H 30 H 95 02/28/19 07:50 95 H 28 H 95 02/28/19 07:40 95 H 26 H 96 02/28/19 07:36 96 H 30 H 112/64 02/28/19 07:35 97 H 19 02/28/19 07:20 96 H 30 H 96 02/28/19 07:10 95 H 30 H 96 02/28/19 07:00 90 22 99 02/28/19 06:50 90 27 H 100 02/28/19 06:45 98 02/28/19 06:42 36.5 C 92 H 27 H 123/58 L 98 02/28/19 06:40 92 H 19 123/58 L 95
--- NOTE | 2019-02-28 17:01 | Discharge Summary ---
Date of Service February 28, 2019 Admission HPI Per Admitting Provider This is a 74 y/o male with a complicated PMH including O2 dependent COPD (2 L at baseline), DM2, CKD, diastolic CHF, hyperlipidemia, gout, depression, restrictive airway disease, RENE on CPAP HS, obesity and HTN who presented to the ED today via EMS after a fall at home. History obtained from both patient and his at the bedside. Pt states that he went to go to bed around 8 pm last evening. He was using his walked to get to the bed but lost his balance and slid to the floor - his buttocks took the brunt of the fall. He denies LOC or hitting his head. He was unable to get back up and his was unable to get him back up so he chose to sleep on the floor last night in hopes that he would be able to get himself up this morning. When he remained too weak this AM, his called 911 and pt was brought to the hospital. Currently, pt is seen in the ED with a complaint of generalized weakness and progressive dyspnea. He reports being discharged from [facility] about a month ago and was doing well at d/c. However, since being home he has noted increased weakness and dyspnea. He is no longer able to walk anything beyond a few steps. He has become more short of breath even at rest. When his notes wheezing, she will have patient use his nebulizer which does seem to help (he used this twice yesterday). He has also been using the CPAP during the day any time he lies down as well as at night. He describes a feeling of chest heaviness with inability to take a deep breath. Minimal cough. Denies sore throat, head/nasal congestion, rhinorrhea, sneezing, fevers, chills or sweats. No overt chest pain or palpitations that he can recall. He does have a headache. Notes dizziness with standing - this seemed to develop when he was on isosorbide which he has subsequently weaned off of but does not feel like this helped symptoms significantly. His weight has been fluctuating but his does think it has crept up overall - no significant worsening of chronic LE edema. His appetite is decreased with minimal oral intake yesterday - he reports struggling to balance drinking enough fluid to stay hydrated but not too much fluid because he worries about CHF. Denies nausea, vomiting, diarrhea, melena or hematochezia. His urine output has been decreased for the past 1-2 days - last urination was yesterday. Denies dysuria, hematuria, nocturia, urinary frequency. He does wear depends due to chronic issues with urinary incontinence. Admission Exam Per Admitting Provider Constitutional: well developed, well nourished and + morbidly obese; no acute distress (although appears uncomfortable) Eyes: PERRL, conjunctivae normal, anicteric sclerae ENMT: Mouth: + oral mucosal abnormality (dry oral mucosa) Neck: trachea midline Respiratory: + tachypneic (28-32 bpm) Auscultation: + diminished lung sounds and + crackles (faint bibasilar); no wheezes Cardiovascular: Rate/Rhythm: regular rate and regular rhythm Heart Sounds: no gallop and no cardiac rub Extremities: normal capillary refill and + edema (trace LE to pretibial area); no calf tenderness Gastrointestinal (Abdomen): Inspection/Auscultation: + abdomen distended (mild) and normal bowel sounds Percussion/Palpation: + abdomen tender (mild RLQ) and abdomen soft; no guarding and abdomen not rigid Musculoskeletal: Head/Neck/Chest: normocephalic and head atraumatic Extremities: no cyanosis Skin: no rashes, warm and dry no jaundice Neurologic: moves all extremities Speech / Cognition: normal speech Psychiatric: Orientation: alert and oriented x 3 Affect: + flat affect Principal Diagnosis Discharge Information Discharge Diagnosis Renal Hemorrhage SUKUMAR Acute Blood Loss Anemia Mechanical Fall To R/O UTI Discharge Goals Decrease discomfort,Improve function,Improve disease control Discharge Activity Limitations Per instructions/follow-up Discharge Data Allergies Allergy/AdvReac Type Severity Reaction Status Date / Time minoxidil Allergy Intermediate RASH Verified 02/28/19 06:54 venlafaxine Allergy Intermediate HTN, SHAKEY Verified 02/28/19 06:54 amlodipine Allergy Unknown Unknown Verified 02/28/19 06:54 clonidine AdvReac Unknown INTOLERANT Verified 02/28/19 06:54 Consultations 02/28/19 08:17 ED Decision to Admit Stat 02/28/19 11:12 Consult Cardiology Routine Consult Nephrology Routine 02/28/19 12:06 Consult Urology Routine Procedures Performed CT head: There is no hemorrhage, mass effect, or evidence of acute territorial ischemia by CT criteria. Knee X ray: No acute fracture or dislocation. CT Chest: 1. Small to moderate bilateral pleural effusions appear unchanged. 2. Bibasilar predominant linear consolidative and groundglass densities are suggestive of probable atelectasis. Pneumonitis considered less likely. 3. Bilateral mosaic attenuation suggests areas of associated air trapping. 4. Prior granulomatous disease. 5. Cardiomegaly. 6. Hepatosplenomegaly with hepatic steatosis. 7. Trace left upper quadrant ascites. CT ABD: 1. Large hemorrhagic lesion of the inferior pole right kidney measures up to 13.8 cm suggestive of a hemorrhagic cyst or hemorrhagic neoplasm. Hemorrhage from this lesion tracks along the subcapsular distribution and results in a large subcapsular hematoma which causes significant mass effect upon the right kidney. Correlate clinically to exclude page kidney. 2. Large complex cystic mass about the interpolar and inferior pole left kidney demonstrates marginal calcifications, mural nodularity and internal septations. Correlation with follow-up MRI renal mass protocol recommended to exclude neoplasm. 3. Multiple complex cystic lesions involve the bilateral kidneys as above. 4. No renal or ureteral calculi or obstructive uropathy. 5. Mild urinary bladder distention. 6. Small volume of abdominopelvic ascites. 7. Small bilateral pleural effusions with bibasilar opacities. 8. Additional findings as above. Bladder USD: 1. Markedly abnormal appearance of the bilateral kidneys. There is a large subcapsular hematoma about the right kidney which compresses the renal parenchyma. Correlate clinically to exclude page kidney. 2. Multiple complex cystic lesions of the left kidney, largest of which measures over 17 cm in length demonstrating layering internal hyperdense material and mural nodularity suspicious for hemorrhagic neoplasm. Correlate with CT study of same day. 3. Mild urinary bladder distention. Ordered Studies 02/28/19 06:55 CT head/brain wo con Stat 02/28/19 07:35 CT chest wo con Stat 02/28/19 09:16 CT abd pelvis wo con Stat US retro bladder ltd Stat Hospital Course (1) Anemia: Acute 4-5 g drop in hemoglobin over last month (reviewed outpatient labs) of unclear etiology. Pt does not recall any acute bleeding (no epistaxis, no hematuria, no hematochezia) - Trend H&H over next 24-36 hours - May need to consider transfusion pending trend and cardiac evaluation - ?elevated troponin due to demand - Check CT abd/pel due to RLQ pain on exam, unexplained drop in H&H - rule out retroperitoneal hematoma (no significant flank or abdominal ecchymosis noted on exam) CT personally reviewed - report states: IMPRESSION: 1. Large hemorrhagic lesion of the inferior pole right kidney measures up to 13.8 cm suggestive of a hemorrhagic cyst or hemorrhagic neoplasm. Hemorrhage from this lesion tracks along the subcapsular distribution and results in a large subcapsular hematoma which causes significant mass effect upon the right kidney. Correlate clinically to exclude page kidney. 2. Large complex cystic mass about the interpolar and inferior pole left kidney demonstrates marginal calcifications, mural nodularity and internal septations. Correlation with follow-up MRI renal mass protocol recommended to exclude neoplasm. 3. Multiple complex cystic lesions involve the bilateral kidneys as above. 4. No renal or ureteral calculi or obstructive uropathy. 5. Mild urinary bladder distention. 6. Small volume of abdominopelvic ascites. 7. Small bilateral pleural effusions with bibasilar opacities. Will consult urology for additional recommendations - pt to remain NPO for now. Following H&H for stability. Type and cross 2 units but will hold for now (2) Acute renal injury: Pt with limited oral intake over the past couple days due to loss of appetite - suspect SUKUMAR on CKD related to dehydration. However, pt with limited urine output since yesterday although no other urinary symptoms that he can recall (history of urinary incontinence at baseline - no worse than usual) - Pt received 500 cc IVF in ED - will give gentle IVF at 60 cc/hr and recheck labs in AM. - Consult nephrology for additional recommendations - this is a difficult situation as patient clinically appears dry with likely resultant SUKUMAR but also has a history of diastolic CHF requiring diuresis. - HOLD diuretics for now - Check renal U/S - evaluate for urinary retention. May need to consider Fuller U/S with bladder distention - Fuller placed by nursing with ~650 ml of urine immediately return. (3) Weakness: Generalized weakness over past month. Noted to have new anemia on labs w ithout clear source - Eventual PT/OT evaluation - suspect may need rehab again at D/C (4) Fall: Due to loss of balance when attempting to get into bed last night using walker - PT/OT as discussed above (5) Obstructive sleep apnea on CPAP: - Continue CPAP from home while admitted. (6) Anxiety: - Continue paroxetine as taken as home as well as clonazepam prn (7) GERD (gastroesophageal reflux disease): - Will change to Pepcid while patient admitted (8) COPD (chronic obstructive pulmonary disease): While pt does present with increased SOB and wheezing (subjective), it is unclear if symptoms truly related to a COPD exacerbation vs pneumonia vs component of CHF vs due to anemia - Start ATC nebs (DuoNeb) - Due to elevated procalcitonin and leukocytosis, will start antibiotics em pirically with ceftriaxone and doxycycline - Hold steroids for now but may need to reconsider pending clinical course - Continue home O2 but titrate to maintain sats >90% (9) Essential hypertension: - Continue hydralazine and metoprolol but holding torsemide for now due to SUKUMAR (10) Diastolic heart failure: Pt does not appear significantly fluid overloaded on exam (actually appears dry) so holding diuretics - Check limited echo to evaluate for wall motion abnormality due to elevated troponin - Consult cardiology for additional recommendations - pt NPO until limited echo performed (11) Diabetes mellitus type 2 in obese: HOLD oral hypoglycemics - Accuchecks - sliding scale insulin - Lantus 10 units BID (baseline 29 units QHS) - check A1c in morning Patient seen and evaluated with collaborating physician, Dr. Sawyer. Plan of care discussed and as outlined above. Patient updated with most recent imaging study results. Further plan of care to be determined pending specialist input. Melanie Rankin PA-C Patient is a 74-year-old male with history of multiple comorbidities presents with history of generalized weakness and fall at home. Patient had a mechanical fall resulting in hitting his buttocks and landed on the floor. He was unable to get up from the floor despite help from his who called 911 and was brought to the hospital. Patient states having progressively worsening dyspnea, and generalized weakness since discharge from rehab facility 1 month ago. Patient was noted to have elevated white blood cell count to indicate, his hemoglobin dropped from his baseline 11.5-6.9. He denied any bleeding issues. He was not on any blood thinners. He takes a baby aspirin daily. He was also noted to have SUKUMAR --creatinine increased from baseline 1.7 to 3.05 today. Was also noted to have abnormal UA but denies any urinary symptoms. He looks clinically dehydrated. CT chest showed small to moderate bilateral pleural effusion unchanged. Also showed bibasilar predominant linear consolidative and groundglass densities suggestive of possible atelectasis. CT abdomen showed large hemorrhagic lesion of the inferior pole of the right kidney measuring up to 13.8 cm suggestive of hemorrhagic cyst or hemorrhagic neoplasm. Hemorrhage from this lesion tracks along the subcapsular distribution results and large subcapsular hematoma which causes significant mass-effect upon the right kidney. Large complex cystic mass also noted on the left kidney. Patient had elevated procalcitonin of 2.42. His troponins are chronically elevated. Urology was consulted. As per urology, patient's large renal hemorrhage is of unclear etiology. Given the significant multiple comorbidities urology recommended to transfer the patient to tertiary center with access to interventional radiology as if he does not respond to blood transfusions, he will need embolization of the right kidney. Cardiology was consulted as well for input on elevated troponin. Cardiology believes that patient has type II demand ischemia likely related to significant anemia. Patient is started on IV ceftriaxone and doxycycline. Patient is currently being transfused 2 units of PRBCs. His diuretics are held. His aspirin is held. Fuller catheter was placed and had 650 mL urine return. On exam patient is obese, ill-appearing, normocephalic atraumatic, decreased breath sounds, crackles at bases, S1-S2, no audible murmur, tachycardia, abdomen soft, right lower quadrant tenderness, distended, bowel sounds present, grossly no neurological focal deficits, trace pedal edema. Patient's condition is discussed with the patient and family. On recommendations from urology, patient will be transferred to [facility] for further management. Patient and family agreed with the plan. Patient is accepted by Dr. Jean Felix at [facility]. I personally reviewed the record. Patient is interviewed and examined at bedside. Patient's care is coordinated with Jordana Rankin PA-C . Please refer to the documentation above for details of patient's presentation and for discussion of other issues. Total Time Total Time Spent Total Time Spent (In Minutes): 47 minutes Total Time Includes: Examination of the Patient, Discharge Planning, Medication Reconciliation, Communication With Other Providers and Other Discharge Plan Discharge Items Patient Disposition: Transfer Acute Care Hospital Reason For Visit: FALL, WEAKNESS Discharge Diagnosis: Renal Hemorrhage SUKUMAR Acute Blood Loss Anemia Mechanical Fall To R/O UTI Discharge Goals: Decrease discomfort, Improve disease control and Improve function Activity: Per 'Additional Instructions' section Exercise/Sports: Rest today Non-emergency contact: Primary Care Provider and Urologist Call non-emergency contact if: you have any medication questions, your symptoms worsen, your pain is not controlled, your pain is worsening, your pain is unusual for you, your pain is concerning for you and you have a fever Follow-up/Referrals: Keyon Rdz, [Primary Care Provider] - Diet: Carb Consistent or DM2 and Heart Healthy Addtl Provider Instructions: Follow up with Dr.Dane Felix at [facility] [address] for further management Do not take Aspirin until further recommendations from you Physician Seek immediate medical attention if your symptoms reoccur or worsen Prescriptions: Continued omeprazole 40 mg capsule,delayed release(DR/EC) 40 mg PO QAM RF: 0 allopurinol 300 mg tablet 300 mg PO HS RF: 0 paroxetine HCl 40 mg tablet 40 mg PO QAM RF: 0 glipizide 5 mg tablet 5 mg PO BID RF: 0 atorvastatin 20 mg tablet 20 mg PO HS RF: 0 ferrous sulfate [iron] 325 mg (65 mg iron) Tablet 325 mg PO BID RF: 0 clonazepam 1 mg tablet 1 mg PO BID PRN (Reason: Anxiety) RF: 0 trazodone 50 mg tablet 50 mg PO HS RF: 0 torsemide 20 mg tablet 40 mg PO QAM RF: 0 potassium chloride 20 mEq tablet,ER particles/crystals 20 meq PO QAM RF: 0 acetaminophen 325 mg Tablet 650 mg PO Q4 MDD 10 tablets daily PRN (Reason: Fever Or Pain) RF: 0 Lantus U-100 Insulin 100 unit/mL Solution 29 unit SUBCUT HS RF: 0 metoprolol succinate 100 mg Tablet Extended Release 24 Hr 100 mg PO BID RF: 0 hydralazine 25 mg Tablet 25 mg PO TID RF: 0 docusate sodium [Colace] 100 mg Capsule 100 mg PO BID RF: 0 Discontinued aspirin 81 mg Tablet,Delayed Release (Dr/Ec) 81 mg PO QAM RF: 0 Stand-Alone Forms: [facility] Discharge Orders: Discharge Order (Routine); Ordered 02/28/19 Ordered By: Chalo Sawyer Admission Data Admit Date/Time: 02/28/19 09:14 Attending Provider: Chalo Sawyer Admit Provider: Chalo Sawyer Primary Care Provider: Keyon Rdz Other Providers: Chalo Sawyer ; Garland Romo ; Madina Kern ; Juana Reyes Service: Telemetry Other Pending Studies at Discharge: Yes Studies:: Urine Culture
[2019-02-28 19:29] LABS: Hematocrit (blood only) 25.5 % (42-52); Hemoglobin 8.3 g/dL (14.0-18.0)
[2019-02-28] MEDS ORDERED: ATORVASTATIN 20 MG TAB PO SCH (21:00)
[2019-02-28] MEDS ORDERED: INSULIN GLARGINE SOLOSTAR 100 UNITS/ML 3 ML PEN SC SCH (21:00)
[2019-02-28] MEDS ORDERED: ALLOPURINOL 300 MG TAB PO SCH (21:00)
[2019-02-28] MEDS ORDERED: METOPROLOL SUCC 50MG EXT REL TAB PO SCH (21:00)
[2019-02-28] MEDS ORDERED: TRAZODONE HCL 50 MG TAB PO SCH (21:00)
[2019-03-01] MEDS ORDERED: POTASSIUM CHLORIDE 20 MEQ TABCR PO SCH (09:00)
[2019-03-01] MEDS ORDERED: FAMOTIDINE 20 MG TAB PO SCH (09:00)
[2019-03-01] MEDS ORDERED: PARoxetine HCl 20 MG TAB PO SCH (09:00)
== END 2019-02-28 19:57 | disposition short-term general hospital (02) | DRG 699 ==
LOC: ED 06:33 → 2S 09:14
DX: F41.9 Anxiety disorder, unspecified; N28.89 Other specified disorders of kidney and ureter; E86.0 Dehydration; Z79.4 Long term (current) use of insulin; G47.33 Obstructive sleep apnea (adult) (pediatric); N18.3 Chronic kidney disease, stage 3 (moderate); Z79.899 Other long term (current) drug therapy; E66.01 Morbid (severe) obesity due to excess calories; Z91.81 History of falling; I13.0 Hypertensive heart and chronic kidney disease with heart failure and stage 1 through stage 4 chronic kidney disease, or unspecified chronic kidney disease; R53.1 Weakness; D62 Acute posthemorrhagic anemia; I50.32 Chronic diastolic (congestive) heart failure; N17.9 Acute kidney failure, unspecified; Z79.82 Long term (current) use of aspirin; Z99.81 Dependence on supplemental oxygen; Z68.39 Body mass index [BMI] 39.0-39.9, adult; E11.22 Type 2 diabetes mellitus with diabetic chronic kidney disease; J44.9 Chronic obstructive pulmonary disease, unspecified

== ENCOUNTER 2020-10-25 22:07 | Inpatient (IN) ==
[2020-10-25 23:11] LABS: Basophils # (auto) 0.02 K/uL (0-0.2); Basophils % (auto) 0.2 %; Eosinophils # (auto) 0.39 K/uL (0-0.5); Eosinophils % (auto) 3.2 %; Hematocrit (blood only) 41.9 % (42-52); Immature Granulocytes # (auto) 0.09 K/uL (0.00-0.02); Immature Granulocytes % (auto) 0.7 %; Lymphocytes # (auto) 1.74 K/uL (1.2-3.4); Lymphocytes % (auto) 14.3 %; Mean Corpuscular Hemoglobin 26.6 pg (25-34); Mean Corpuscular Volume 85.7 fL (80-100); Mean Platelet Volume 8.4 fL (7.4-10.4); Monocytes # (auto) 0.86 K/uL (0.11-0.59); Monocytes % (auto) 7.1 %; Neutrophils # (auto) 9.08 K/uL (1.4-6.5); Neutrophils % (auto) 74.5 %; Platelet Count 246 K/uL (130-400); RDW Coefficient of Variation 16.1 % (11.5-14.5); RDW Standard Deviation 50.4 fL (36.4-46.3); Red Blood Count 4.89 M/uL (4.7-6.1); White Blood Count 12.18 K/uL (4.8-10.8)
[2020-10-25 23:29] LABS: Alanine Aminotransferase 10 U/L (12-78); Aspartate Aminotransferase 8 U/L (15-37); BUN Creatinine Ratio 11.1 (10-20); Blood Urea Nitrogen 16 mg/dl (7-18); Calcium 8.6 mg/dl (8.5-10.1); Carbon Dioxide 29 mmol/L (21-32); Chloride 105 mmol/L (98-107); Est GFR (Non-African American) 47.4; Glucose 126 mg/dl (70-99); Potassium 3.7 mmol/L (3.5-5.1); Sodium 141 mmol/L (136-145)
[2020-10-25 23:40] LABS: Albumin Globulin Ratio 0.8 (0.9-2); Alkaline Phosphatase 115 U/L (45-117); Bilirubin,Total 0.7 mg/dl (0.2-1); Creatine Kinase 24 U/L (39-308); Globulin 3.9 gm/dl (2.5-4.0); Total Protein 6.9 gm/dl (6.4-8.2); Troponin I < 0.015 ng/ml (0-0.045)
--- NOTE | 2020-10-25 23:40 | Emergency Department Note ---
History of Present Illness General Chief complaint: Hip Pain Time Seen by Provider: 10/25/20 22:25 History of Present Illness Maximum Pain Intensity: 0 This 75 yo presents to the ER complaining of increasing falls and feeling weak Location: Generalized Quality: Weak Severity: Moderate Duration: Last week Timing: Started over a week ago Context: Patient kept on following and was sent in Modifying factors: better with rest; worse with activity Patient fell 3 times this week. EMS had to go and help lift him. His is his primary caregiver. Patient barely walks with a walker. Patient states he feels quite weak. Patient denies chest pain, hip pain, back pain, dyspnea, abdominal pain, headache, neck stiffness, flulike illness. Home Medications Medication Instructions Recorded Confirmed Type allopurinol 300 mg PO HS 11/30/18 12/05/19 History aspirin 81 mg PO QAM 11/30/18 12/05/19 History atorvastatin 40 mg PO HS 11/30/18 12/05/19 History clonazepam 1 mg PO BID PRN 11/30/18 12/05/19 History ferrous sulfate [iron] 325 mg PO BID 11/30/18 12/05/19 History omeprazole 40 mg PO QAM 11/30/18 12/05/19 History paroxetine HCl 40 mg PO QAM 11/30/18 12/05/19 History trazodone 50 mg PO HS 12/31/18 12/05/19 History docusate sodium [Colace] 100 mg PO BID 02/28/19 12/05/19 History hydralazine 25 mg PO TID 02/28/19 12/05/19 History metoprolol succinate 100 mg PO BID 02/28/19 12/05/19 History torsemide 20 mg PO QAM 02/28/19 10/26/20 History Levemir FlexTouch U-100 Insuln 30 unit SUBCUT HS 12/05/19 12/05/19 History Ozempic 0.5 mg SUBCUT VAN 12/05/19 12/05/19 History spironolactone 25 mg PO DAILY@12 12/05/19 12/05/19 History Allergies Allergy/AdvReac Type Severity Reaction Status Date / Time minoxidil Allergy Intermediate RASH Verified 10/26/20 01:13 venlafaxine Allergy Intermediate HTN, SHAKEY Verified 10/26/20 01:13 amlodipine Allergy Unknown Unknown Verified 10/26/20 01:13 clonidine AdvReac Unknown INTOLERANT Verified 10/26/20 01:13 Past Med/Surg History Medical History (Updated 10/26/20 @ 01:13 by Karine Rodriguez PA-C) Anxiety CKD (chronic kidney disease) stage 3, GFR 30-59 ml/min COPD (chronic obstructive pulmonary disease) Depression Diabetes mellitus type 2 in obese Diastolic heart failure Dyslipidemia Essential hypertension Essential tremor GERD (gastroesophageal reflux disease) GI bleed (03/14/14) Gout Obstructive sleep apnea on CPAP Restless leg syndrome Restrictive airway disease Surgical History H/O colonoscopy " 04/09/2014- adenomatous & TVA polyps, diverticulosis 04/29/2015- normal " H/O colonoscopy with polypectomy "2012 - polyps, adenomatous" H/O esophagogastroduodenoscopy " 03/15/2014- mild-mod inflammation " History of pericardiotomy S/P tonsillectomy and adenoidectomy Family History Other Coronary heart disease Stroke Social History Smoking Status: Never smoker Second Hand Exposure: No; Hx Alcohol Use: No Hx Substance Use: No Preferred Language: Marshallese Communication Ability: Effective Visual Impairment: Limited Remote Sensing Specialist Required: No Beliefs That Will Affect Care: None marital status: Current Living Situation: Spouse Feels Safe at Home: Yes Assistive Devices: Walker Review of Systems A total of 10 systems reviewed and were otherwise negative Physical Exam Vital Signs Vital Signs - 24 hr 10/25/20 22:10 10/25/20 23:01 10/25/20 23:30 Temperature 36.7 C Temperature Source Oral Pulse Rate 96 H Pulse Rate [Apical] 91 H Respiratory Rate 20 18 Blood Pressure 161/91 H Blood Pressure [Right Arm] 169/93 H Blood Pressure Mean 114 Blood Pressure Mean [Right Arm] 118 Pulse Oximetry 94 94 Oxygen Delivery Method Room Air Room Air Room Air Sepsis Recent Fever Within 48 Hours No Sepsis New/Unexplained Change in Mental Status N/A Sepsis Action Taken by Nursing No Action Required 10/26/20 01:12 Temperature Temperature Source Pulse Rate Pulse Rate [Apical] 91 H Respiratory Rate 20 Blood Pressure Blood Pressure [Right Arm] 178/101 H Blood Pressure Mean Blood Pressure Mean [Right Arm] 126 Pulse Oximetry 94 Oxygen Delivery Method Room Air Sepsis Recent Fever Within 48 Hours Sepsis New/Unexplained Change in Mental Status Sepsis Action Taken by Nursing VITALS: Vitals are noted on the nurse's note and reviewed by myself. Vital signs reviewed. GENERAL: Elderly male weak appearing, in no acute distress SKIN: The skin was without rashes, erythema, or bruising. There is no tenting of the skin. Capillary reflex less than 2 seconds. HEAD: Normocephalic atraumatic. EARS: External auditory canals clear, tympanic membranes pearly treviño without erythema or effusion bilaterally. EYES: Pupils equal round and reactive to light and accommodation. Conjunctivae without injection, sclerae without icterus. Extraocular movements intact. NOSE: Patent, turbinates without inflammation or discharge. No sinus tenderness. MOUTH: Mucous membranes moist. Pharynx without erythema or exudate. Uvula midline. Airway patent. Tongue does not deviate. NECK: Supple without nuchal rigidity. No lymphadenopathy. No thyromegaly. Cervical spine is nontender. No JVD. HEART: Regular rate and rhythm LUNGS: Clear to auscultation bilaterally without wheezes, rales or rhonchi. No retractions or accessory muscle use. ABDOMEN: Positive bowel sounds x 4. Normal tympanic percussion. Soft, nontender, without masses or organomegaly. Armstrong sign negative. No guarding or rebound tenderness. No CVA tenderness MUSCULOSKELETAL: No muscle atrophy, erythema, noted. No thoracic or lumbar tenderness. Pelvis stable. Full range of motion of all extremities. NEURO: Patient was alert and oriented to person place and time. Normal sensation to light and sharp touch. No focal neurological deficits. Medical Decision Making Medical Records Attestation: I reviewed the patient's medical records. Home Medications Current Medication List: was personally reviewed by me Laboratory Data Attestation: I reviewed the patient's lab results. Result diagrams: 10/25/20 22:59 10/25/20 22:59 Lab Results 10/25/20 10/25/20 10/25/20 Range/Units 22:59 22:59 23:56 WBC 12.18 H (4.8-10.8) K/uL RBC 4.89 (4.7-6.1) M/uL Hgb 13.0 L (14.0-18.0) g/dL Hct 41.9 L (42-52) % MCV 85.7 (80-100) fL MCH 26.6 (25-34) pg MCHC 31.0 L (32-36) g/dL RDW Std Deviation 50.4 H (36.4-46.3) fL RDW Coeff of Alfonso 16.1 H (11.5-14.5) % Plt Count 246 (130-400) K/uL MPV 8.4 (7.4-10.4) fL Immature Gran % (Auto) 0.7 % Neut % (Auto) 74.5 % Lymph % (Auto) 14.3 % Mcnairy % (Auto) 7.1 % Eos % (Auto) 3.2 % Baso % (Auto) 0.2 % Neut # (Auto) 9.08 H (1.4-6.5) K/uL Lymph # (Auto) 1.74 (1.2-3.4) K/uL Mcnairy # (Auto) 0.86 H (0.11-0.59) K/uL Eos # (Auto) 0.39 (0-0.5) K/uL Baso # (Auto) 0.02 (0-0.2) K/uL Immature Gran # (Auto) 0.09 H (0.00-0.02) K/uL Sodium 141 (136-145) mmol/L Potassium 3.7 (3.5-5.1) mmol/L Chloride 105 (98-107) mmol/L Carbon Dioxide 29 (21-32) mmol/L Anion Gap 7.0 (3-11) BUN 16 (7-18) mg/dl Creatinine 1.45 H (0.6-1.4) mg/dl Est Cr Clr Drug Dosing Not Reportable Est GFR ( Amer) 55.0 Est GFR (Non-Af Amer) 47.4 BUN/Creatinine Ratio 11.1 (10-20) Glucose 126 H (70-99) mg/dl Calcium 8.6 (8.5-10.1) mg/dl Total Bilirubin 0.7 (0.2-1) mg/dl AST 8 L (15-37) U/L ALT 10 L (12-78) U/L Alkaline Phosphatase 115 (45-117) U/L Total Creatine Kinase 24 L (39-308) U/L Troponin I < 0.015 (0-0.045) ng/ml Total Protein 6.9 (6.4-8.2) gm/dl Albumin 3.0 L (3.4-5.0) gm/dl Globulin 3.9 (2.5-4.0) gm/dl Albumin/Globulin Ratio 0.8 L (0.9-2) TSH 2.410 (0.300-4.500) uIu/ml Urine Color Yellow Urine Appearance Clear (Clear) Urine pH 5.0 (4.5-7.5) Ur Specific Morrison 1.015 (1.000-1.030) Urine Protein Negative (Negative) Urine Glucose (UA) Negative (Negative) Urine Ketones Negative (Negative) Urine Blood 2+ H (Negative) Urine Nitrite Negative (Negative) Urine Bilirubin Negative (Negative) Urine Urobilinogen Negative (Negative) Ur Leukocyte Esterase Negative (Negative) Urine WBC (Auto) 1-5 (0-5) /hpf Urine RBC (Auto) 10-30 H (0-4) /hpf U Hyaline Cast (Auto) 1-5 (0-5) /lpf U Epithel Cells (Auto) 20-30 H (0-5) /lpf Urine Bacteria (Auto) Negative (Negative) Imaging Data Attestation: I personally reviewed and interpreted this imaging study as follows: MDM Narrative Prior records/ancillary studies reviewed and summarized above. Nursing notes reviewed. Additional history obtained from EMS. The patient's history was concerning for frequent falls and increasing weakness Differential diagnosis: Etiologies such as metabolic, infection, hypo/hyperglycemia, electrolyte abnormalities, cardiac sources, intracerebral event, toxicologic, neurologic, as well as others were entertained. Physical examination: As above. ER treatment provided: IV Lock An order was placed for continuous cardiac monitoring. The monitor shows a rate of 60-100 with a sinus rhythm. On reassessment the patient felt better. Diagnostics interpretation by me: ECG: Ordered for weakness EKG: Poor baseline, normal sinus, normal intervals, T wave inversions in lead I and aVL, rate of 93. Impression normal sinus rhythm with T wave inversions in the anterior leads interpreted by myself I think arrhythmia is unlikely. EKG shows normal sinus rhythm with no interval abnormalities such as QT prolongation or WPW. There are no findings to suggest Brugada syndrome. Cardiac monitoring in the emergency department reveals no tachycardic or bradycardic dysrhythmia. Hypertrophic cardiomyopathy was considered but there are no clear historical elements pointing toward this. EKG is not suggestive. The QRS voltage is not extremely large and there are no suggestive Q waves. The labs revealed negative urine, mild leukocytosis. Creatinine 1.45 Imaging studies: CT HEAD: No intracranial hemorrhage, mass-effect, or edema. Parenchymal atrophy and chronic microvascular ischemic changes. Paranasal sinuses and mastoid air cells are clear. No fracture. Radiologist: Rogers Romo MD CT PELVIS: No fracture or malalignment. Incompletely imaged very large renal cyst on the left measuring at least 17 cm. In addition there is a cyst along the inferior pole of the right kidney measuring 7 cm. This cyst is thick-walled. Previously on 02/28/2019 there was a hematoma at this location suggesting that this likely represents residual hematoma/seroma. It could be further evaluated by renal protocol CT or MRI. Radiologist: Rogers Romo MD Chest x-ray with cardiomegaly without overt consolidation or pneumothorax per my interpretation Consultation: A consultation was placed with the hospitalist, Dr Velasco. The case was discussed and diagnostics were reviewed. The patient was evaluated in the ER for further treatment. Exam and history seem consistent with increasing weakness and frequent falls. Patient has fallen 3 times this week. He feels quite weak. Medicine was consulted. He will be evaluated for admission. Negative CAT scan. Stable labs. By the evaluation outlined above emergent etiologies such as infection, electrolyte abnormalities, intracerebral event, toxologic, abnormalities blood glucose, metabolic, as well as others were deemed relatively unlikely. The pt informed about the findings as listed above. All questions were answered and pleased with the treatment. The chart was completed utilizing [employer] Speech voice recognition software. Grammatical errors, random word insertions, pronoun errors, and incomplete sentences are an occassional consequence of this system due to software limitations, ambient noise, and hardware issues. Any formal questions or concerns about the content, text, or information contained within the body of this dictation should be directly addressed to the physician human resources assistant manager for clarification. Impression & Plan Weakness, Fall Discharge Plan Visit Data Chief Complaint: Hip Pain ED Provider: Lucia Mcnally ED Midlevel Provider: Karine Rodriguez Discharge Problem: Weakness, Fall Patient Disposition: Being Evaluated by Hospitalist Condition: Fair Forms Stand Alone Forms: My [facility] Prescriptions Prescriptions: No Action omeprazole 40 mg capsule,delayed release(DR/EC) 40 mg PO QAM RF: 0 aspirin 81 mg Tablet,Delayed Release (Dr/Ec) 81 mg PO QAM RF: 0 allopurinol 300 mg tablet 300 mg PO HS RF: 0 paroxetine HCl 40 mg tablet 40 mg PO QAM RF: 0 atorvastatin 20 mg tablet 40 mg PO HS RF: 0 ferrous sulfate [iron] 325 mg (65 mg iron) Tablet 325 mg PO BID RF: 0 clonazepam 1 mg tablet 1 mg PO BID PRN (Reason: Anxiety) RF: 0 trazodone 50 mg tablet 50 mg PO HS RF: 0 torsemide 20 mg tablet 20 mg PO QAM RF: 0 metoprolol succinate 100 mg Tablet Extended Release 24 Hr 100 mg PO DAILY RF: 0 hydralazine 25 mg Tablet 25 mg PO TID RF: 0 docusate sodium [Colace] 100 mg Capsule 100 mg PO BID RF: 0 spironolactone 25 mg Tablet 25 mg PO DAILY@12 RF: 0 Levemir FlexTouch U-100 Insuln 100 unit/mL (3 mL) Insulin Pen 28 unit SUBCUT HS RF: 0 Ozempic 0.25 mg or 0.5 mg(2 mg/1.5 mL) pen injector 0.5 mg SUBCUT VAN RF: 0 Referrals Referrals: Keyon Rdz, [Primary Care Provider] -
[2020-10-26 00:03] LABS: Appearance Urine Clear (Clear); Bacteria Urine Automated Negative (Negative); Bilirubin Urine Negative (Negative); Blood Urine 2+ (Negative); Color Urine Yellow; Epithelial Cell Urine Auto 20-30 /lpf (0-5); Glucose Urine UA Negative (Negative); Ketones Urine Negative (Negative); Leukocyte Esterase Urine Negative (Negative); Nitrite Urine Negative (Negative); Protein Urine Negative (Negative); Specific Gravity Urine 1.015 (1.000-1.030); Urobilinogen Urine Negative (Negative)
--- NOTE | 2020-10-26 01:33 | Emergency Department Note ---
ED Visit Note Pt seen and evaluated at bedside after discussion with the PA, please refer to her note for additional details and test results. Pt hypertensive but did not appear in any distress and denied pain at rest. Pt was able to lift legs but had pain with ROM testing of left leg. .
[2020-10-26] MEDS ORDERED: clonazePAM 1 MG TAB PO PRN (03:13)
[2020-10-26] MEDS ORDERED: ONDANSETRON INJ 2 MG/ML 2 ML VIAL IV PRN (03:13)
[2020-10-26] MEDS ORDERED: POLYETHYLENE (MIRALAX) 17 GM PACK PO PRN (03:13)
[2020-10-26] MEDS ORDERED: ACETAMINOPHEN 325 MG TAB PO PRN (03:13)
[2020-10-26] MEDS ORDERED: GLUCOSE 10 TABS/TUBE PO PRN (03:30)
[2020-10-26] MEDS ORDERED: GLUCAGON FOR INJ 1 MG VIAL SQ PRN (03:30)
[2020-10-26] MEDS ORDERED: DEXTROSE 50% 50 ML SYRINGE IV PRN (03:30)
[2020-10-26] MEDS ORDERED: GLUCOSE 40% GEL 15 GM TUBE PO PRN (03:30)
[2020-10-26] MEDS ORDERED: CARBOHYDRATES FOR HYPOGLYCEMIA PO PRN (03:30)
--- NOTE | 2020-10-26 03:36 | History and Physical Report ---
DATE OF ADMISSION: 10/26/2020 CHIEF COMPLAINT: Frequent falls. HISTORY OF PRESENT ILLNESS: This is a 75-year-old male with past medical history significant for type 2 diabetes, hyperlipidemia, COPD, obstructive sleep apnea, asthma, moderate persistent hypertension, chronic diastolic CHF, chronic kidney disease stage III, obesity, GERD, slow transit constipation, history of right renal hemorrhage, gout, arthropathy, depression, generalized anxiety disorder, decreased activities of daily living, impaired mobility and ADLs. Lives with his . At present, was brought in because of frequent falls. The patient says he fell a few times and brought him to the hospital. He had a similar admission in December of 2019. At that time, the patient was sent to [facility] for physical rehabilitation. The patient otherwise says he is doing okay. Denies any chest pain, no shortness of breath, no cough, no fever, no chills, no headache, no blurred visions, no earache, no runny nose, no sore throat, no nausea, no abdominal pain. Normal bowel and bladder movements. Ambulates without any help. Sometimes uses a walker. Currently resting comfortably and hemodynamically stable. ALLERGIES: MINOXIDIL, VENLAFAXINE, AMLODIPINE, CLONIDINE. PAST MEDICAL HISTORY: As mentioned above. PAST SURGICAL HISTORY: Colonoscopy with biopsies, EGDs, Incision for heart sac for drainage, tonsillectomy, adenoidectomy. MEDICATIONS: The patient is on allopurinol 300 mg p.o. at bedtime, aspirin 81 mg p.o. daily, atorvastatin 40 mg p.o. at bedtime, Klonopin 1 mg p.o. b.i.d. p.r.n., Colace 100 mg p.o. b.i.d., ferrous sulfate 325 mg p.o. b.i.d., Levemir 28 units subcutaneous at bedtime, metoprolol succinate 100 mg p.o. daily, Ozempic 0.5 mg subcutaneous on Wednesday, paroxetine 40 mg p.o. a.m., spironolactone 25 mg p.o. daily, torsemide 20 mg p.o. a.m., trazodone 50 mg p.o. at bedtime. FAMILY HISTORY: Significant for father has hypertension; mother has hypertension; maternal grandmother has heart disorder; paternal grandfather and paternal grandmother have heart disorder. SOCIAL HISTORY: and lives with his . No smoking, no alcohol, no drug use. REVIEW OF SYSTEMS: As per HPI. Rest of the review of systems negative. PHYSICAL EXAMINATION: GENERAL: The patient is obese, not in acute distress. VITAL SIGNS: Temperature 36.7, pulse 91, respiratory rate 20, blood pressure 149/85, and oxygen 94% room air. HEENT: Pupils equal, round, and reactive to light. Oral mucosa moist. NECK: No neck masses seen. CARDIOVASCULAR: S1, S2 heard. Regular rate and rhythm, no murmur, no gallop. RESPIRATORY SYSTEM: Normal AP diameter. No accessory muscle use. No wheezing, no crackles. ABDOMEN: Soft, bowel sounds present, nontender. No distention. CENTRAL NERVOUS SYSTEM: Cranial nerves II-XII are grossly intact. Power 5/5 in all extremities. Coordination of movements normal. EXTREMITIES: No edema, no erythema seen. LABORATORY DATA: WBC 12.18, hemoglobin 13, hematocrit 41.9, platelets 246. Sodium 141, potassium 3.7, chloride 105, bicarbonate 29, BUN 16, creatinine 1.45, serum glucose 126, calcium 8.6, total bilirubin 0.7, AST 8, ALT 10, alkaline phosphatase 115, total creatinine kinase 24. Troponin I less than 0.015. TSH 2.4. Urinalysis, +2 blood, negative for bacterial cause. SARS-CoV-2 antigen negative. IMAGING DATA: Chest x-ray, cardiomegaly seen, otherwise no acute findings. CT of the head, preliminary report, no acute findings. Pelvis CT, no fracture or malalignment, large renal cyst in the left. EKG: Normal sinus rhythm, rate of 93, no significant change was found. ASSESSMENT AND PLAN: This is a 75-year-old male who presents with frequent falls. 1. Frequent falls. The patient has history of ambulatory dysfunction. No signs of any infection. We will get PT/OT. Social service to help with possible placement. Monitor in the medical floor. 2. Renal cyst on CAT scan preliminary report, follow final report. The patient has history of right renal hematoma. If any concerns, we will get MRI or CT scan and urology consult. 3. History of chronic diastolic congestive heart failure and chronic right-sided heart failure. Continue his home diuretics. We will monitor for any volume overload. 4. History of diabetes: Continue his Levemir. We will place him on insulin sliding scale. Follow his blood sugars, follow HbA1c levels. 5. Chronic kidney disease stage III: Creatinine seems to be at baseline. We will follow the labs. 6. Hypertension: Continue his diuretics and Toprol. We will monitor his blood pressure. 7. History of gout, continue allopurinol. 8. History of hyperlipidemia, continue statin. 9. Depression and generalized anxiety. Continue his paroxetine and Klonopin p.r.n. 10. History of chronic obstructive pulmonary disease, seems stable. 11. History of iron deficiency anemia: On iron supplements. Hemoglobin is stable at 13. 12. Deep venous thrombosis prophylaxis, sequential compression devices for now. 13. Disposition: Admit to medical floor. PT and OT. Social service to help with discharge planning. Level 1 full code. MTDD
[2020-10-26 07:07] LABS: Basophils # (auto) 0.02 K/uL (0-0.2); Basophils % (auto) 0.2 %; Eosinophils # (auto) 0.38 K/uL (0-0.5); Eosinophils % (auto) 3.1 %; Hematocrit (blood only) 38.6 % (42-52); Hemoglobin 12.2 g/dL (14.0-18.0); Immature Granulocytes # (auto) 0.07 K/uL (0.00-0.02); Immature Granulocytes % (auto) 0.6 %; Lymphocytes # (auto) 2.34 K/uL (1.2-3.4); Lymphocytes % (auto) 18.8 %; Mean Corpuscular Hemoglobin 26.9 pg (25-34); Mean Corpuscular Hgb Conc 31.6 g/dL (32-36); Mean Corpuscular Volume 85.2 fL (80-100); Mean Platelet Volume 8.2 fL (7.4-10.4); Monocytes # (auto) 0.98 K/uL (0.11-0.59); Monocytes % (auto) 7.9 %; Neutrophils # (auto) 8.63 K/uL (1.4-6.5); Neutrophils % (auto) 69.4 %; Platelet Count 213 K/uL (130-400); RDW Standard Deviation 49.9 fL (36.4-46.3); Red Blood Count 4.53 M/uL (4.7-6.1); White Blood Count 12.42 K/uL (4.8-10.8)
--- NOTE | 2020-10-26 07:40 | CT Scan Report ---
CT head/brain wo con CLINICAL HISTORY: Head trauma. Weakness. COMPARISON STUDY: 12/05/2019 TECHNIQUE: Axial CT of the brain is performed from the vertex to the skull base. IV contrast was not administered for this examination. A dose lowering technique was utilized adhering to the principles of ALARA. CT DOSE: 614.27 mGy.cm FINDINGS: No intra or extra-axial mass lesions are visualized. There is no CT evidence of acute cortical infarc tion. There is no evidence of midline shift. There is no acute hemorrhage. No calvarial fractures ar e visualized. There are patchy white matter hypodensities likely on a small vessel basis. There is no evidence of pathologic ventricular dilatation. There is no evidence of acute sinusitis IMPRESSION: No acute intracranial findings ACT 112: Negative or not required by law. Electronically signed by: Brett Tucker M.D. 10/26/2020 7:39 AM
[2020-10-26 07:45] LABS: BUN Creatinine Ratio 12.3 (10-20); Calcium 8.4 mg/dl (8.5-10.1); Creatinine Clr Calc Pharmacy 62.5 ml/min; Est GFR (African American) 66.4; Est GFR (Non-African American) 57.3; Magnesium 1.9 mg/dl (1.8-2.4); Potassium 3.7 mmol/L (3.5-5.1)
--- NOTE | 2020-10-26 07:45 | XRay Report ---
XR hip LT 2V w pelvis CLINICAL HISTORY: Left hip pain status post trauma COMPARISON: None. DISCUSSION: No acute fractures or dislocations are visualized. There is no evidence of SI joint diast ases. There is no evidence of symphysis diastases. IMPRESSION: No fractures or dislocations identified. ACT 112: Negative or not required by law. Electronically signed by: Brett Tucker M.D. 10/26/2020 7:43 AM
--- NOTE | 2020-10-26 07:46 | XRay Report ---
XR chest 1V portable CLINICAL HISTORY: weakness TRAUMA. PAIN. COMPARISON STUDY: 12/05/2019 FINDINGS: The heart is enlarged. There is blunting of the left lateral costophrenic angle suggesting a small pleural effusion[. There is mild chronic interstitial thickening. There is no lobar consolida tion. IMPRESSION: Cardiomegaly and mild chronic interstitial thickening. Suspected trace left pleural effus ion with left basilar atelectatic change ACT 112: Negative or not required by law. Electronically signed by: Brett Tucker M.D. 10/26/2020 7:45 AM
--- NOTE | 2020-10-26 07:53 | CT Scan Report ---
CT pelvis wo con CT DOSE: 1547.47 mGy.cm CLINICAL HISTORY: Pelvic pain. Possible occult fracture. Negative conventional x-rays. TECHNIQUE: Helical images were acquired in the transverse plane. Sagittal coronal reformatted images were acquired A dose lowering technique was utilized adhering to the principles of ALARA. COMPARISON STUDY: Conventional x-ray performed the same day, CT scan the abdomen and pelvis performe d January 2019 FINDINGS: There is a partially visualized 15 cm lower pole left renal cyst with rim calcification. Th ere is a partially visualized lower pole 7 cm right renal cyst with calcified septations. There is no SI joint diastases. No hip fractures or dislocations are visualized. No ischio pubic ring fractures are visualized. There is mild prostatomegaly. There are fat-containing inguinal hernias. IMPRESSION: 1. No acute fractures 2. Large bilateral lower pole renal masses likely representing complex cysts. ACT 112: Negative or not required by law. Electronically signed by: Brett Tucker M.D. 10/26/2020 7:52 AM
[2020-10-26 08:09] LABS: Estimated Average Glucose 111 mg/dl; Hemoglobin A1C 5.5 % (4.5-5.6)
[2020-10-26] MEDS: DOCUSATE SODIUM 100 MG CAP PO SCH ×2 (08:49→21:16)
[2020-10-26] MEDS: METOPROLOL SUCC 50MG EXT REL TAB PO SCH (08:50)
[2020-10-26] MEDS: ASPIRIN 81 MG ECTAB PO SCH (08:50)
[2020-10-26] MEDS: FERROUS SULFATE 325 MG TAB PO SCH ×2 (08:50→21:16)
[2020-10-26] MEDS: PARoxetine HCL 20 MG TAB PO SCH (08:50)
[2020-10-26] MEDS: TORSEMIDE 10 MG TAB PO SCH (08:51)
[2020-10-26] MEDS: INSULIN ASPART 100 UNITS/ML 3 ML PEN SC SCH ×4 (08:54→21:18)
--- NOTE | 2020-10-26 11:58 | Hospitalist Progress Note ---
Date of Service October 26, 2020 Assessment & Plan (1) Fall: Recurrent falls Trauma work-up negative for fractures PT OT eval May likely need rehab Pelvic CT show bilateral renal cysts (2) CKD (chronic kidney disease): Renal function at baseline (3) Hypertension: Controlled Continue Toprol-XL (4) Diabetes: Insulin sliding scale per protocol Continue Levemir (5) Diastolic heart failure: Currently euvolemic Continue Toprol-XL, torsemide and Aldactone (6) DVT prophylaxis: Admission and Anticipated Discharge Date Admission Date: October 26, 2020 Subjective Patient seen and examined. Patient denies any complaints Denies any pain, dizziness, weakness, Denies any chest pain, cough, shortness of breath Denies any nausea, vomiting, abdominal pain or diarrhea Denies any dysuria, frequency, urgency Physical Exam Constitutional: + well hydrated; no acute distress and not obese Eyes: PERRL, conjunctivae normal, anicteric sclerae ENMT: external ear and nose normal, oropharynx normal Respiratory: normal respiratory effort, lungs clear to auscultation Cardiovascular: Rate/Rhythm: regular rate and regular rhythm S1-S2 Gastrointestinal (Abdomen): normal bowel sounds, soft, nontender, no hepatosplenomegaly Musculoskeletal: no cyanosis or clubbing, extremities motor strength 5/5 Neurologic: PERRL, EOMI, accommodation nl, no face palsy, no dysarthria Psychiatric: A+Ox3, euthymic affect Results & Data Results & Data ([facility]) Vital Signs (Past 12 Hours) Vital Signs Temp Pulse Pulse Resp BP BP Pulse Ox 10/26/20 08:25 36.6 C 88 18 156/88 H 156/88 H 94 10/26/20 03:14 36.6 C 93 H 16 155/89 H 94 10/26/20 02:39 92 H 18 165/92 H 94 10/26/20 01:50 91 H 20 149/85 H 94 10/26/20 01:12 91 H 20 178/101 H 94 Laboratory Results Laboratory Results - last 24 hr 10/25/20 10/25/20 10/25/20 22:59 22:59 23:56 WBC 12.18 H RBC 4.89 Hgb 13.0 L Hct 41.9 L MCV 85.7 MCH 26.6 MCHC 31.0 L RDW Std Deviation 50.4 H RDW Coeff of Alfonso 16.1 H Plt Count 246 MPV 8.4 Immature Gran % (Auto) 0.7 Neut % (Auto) 74.5 Lymph % (Auto) 14.3 Weld % (Auto) 7.1 Eos % (Auto) 3.2 Baso % (Auto) 0.2 Neut # (Auto) 9.08 H Lymph # (Auto) 1.74 Weld # (Auto) 0.86 H Eos # (Auto) 0.39 Baso # (Auto) 0.02 Immature Gran # (Auto) 0.09 H Sodium 141 Potassium 3.7 Chloride 105 Carbon Dioxide 29 Anion Gap 7.0 BUN 16 Creatinine 1.45 H Est Cr Clr Drug Dosing Not Reportable Est GFR ( Amer) 55.0 Est GFR (Non-Af Amer) 47.4 BUN/Creatinine Ratio 11.1 Glucose 126 H POC Glucose Estimat Average Glucose Hemoglobin A1c Calcium 8.6 Magnesium Total Bilirubin 0.7 AST 8 L ALT 10 L Alkaline Phosphatase 115 Total Creatine Kinase 24 L Troponin I < 0.015 Total Protein 6.9 Albumin 3.0 L Globulin 3.9 Albumin/Globulin Ratio 0.8 L TSH 2.410 Urine Color Yellow Urine Appearance Clear Urine pH 5.0 Ur Specific Hendrum 1.015 Urine Protein Negative Urine Glucose (UA) Negative Urine Ketones Negative Urine Blood 2+ H Urine Nitrite Negative Urine Bilirubin Negative Urine Urobilinogen Negative Ur Leukocyte Esterase Negative Urine WBC (Auto) 1-5 Urine RBC (Auto) 10-30 H U Hyaline Cast (Auto) 1-5 U Epithel Cells (Auto) 20-30 H Urine Bacteria (Auto) Negative SARS-CoV-2 Ag (Rapid) 10/26/20 10/26/20 10/26/20 01:24 06:52 06:52 WBC 12.42 H RBC 4.53 L Hgb 12.2 L Hct 38.6 L MCV 85.2 MCH 26.9 MCHC 31.6 L RDW Std Deviation 49.9 H RDW Coeff of Alfonso 16.0 H Plt Count 213 MPV 8.2 Immature Gran % (Auto) 0.6 Neut % (Auto) 69.4 Lymph % (Auto) 18.8 Weld % (Auto) 7.9 Eos % (Auto) 3.1 Baso % (Auto) 0.2 Neut # (Auto) 8.63 H Lymph # (Auto) 2.34 Weld # (Auto) 0.98 H Eos # (Auto) 0.38 Baso # (Auto) 0.02 Immature Gran # (Auto) 0.07 H Sodium 139 Potassium 3.7 Chloride 105 Carbon Dioxide 27 Anion Gap 8.0 BUN 15 Creatinine 1.24 Est Cr Clr Drug Dosing 62.5 Est GFR ( Amer) 66.4 Est GFR (Non-Af Amer) 57.3 BUN/Creatinine Ratio 12.3 Glucose 123 H POC Glucose Estimat Average Glucose Hemoglobin A1c Calcium 8.4 L Magnesium 1.9 Total Bilirubin AST ALT Alkaline Phosphatase Total Creatine Kinase Troponin I Total Protein Albumin Globulin Albumin/Globulin Ratio TSH Urine Color Urine Appearance Urine pH Ur Specific Hendrum Urine Protein Urine Glucose (UA) Urine Ketones Urine Blood Urine Nitrite Urine Bilirubin Urine Urobilinogen Ur Leukocyte Esterase Urine WBC (Auto) Urine RBC (Auto) U Hyaline Cast (Auto) U Epithel Cells (Auto) Urine Bacteria (Auto) SARS-CoV-2 Ag (Rapid) Negative 10/26/20 10/26/20 10/26/20 06:52 08:29 12:04 WBC RBC Hgb Hct MCV MCH MCHC RDW Std Deviation RDW Coeff of Alfonso Plt Count MPV Immature Gran % (Auto) Neut % (Auto) Lymph % (Auto) Weld % (Auto) Eos % (Auto) Baso % (Auto) Neut # (Auto) Lymph # (Auto) Weld # (Auto) Eos # (Auto) Baso # (Auto) Immature Gran # (Auto) Sodium Potassium Chloride Carbon Dioxide Anion Gap BUN Creatinine Est Cr Clr Drug Dosing Est GFR ( Amer) Est GFR (Non-Af Amer) BUN/Creatinine Ratio Glucose POC Glucose 115 H 126 H Estimat Average Glucose 111 Hemoglobin A1c 5.5 Calcium Magnesium Total Bilirubin AST ALT Alkaline Phosphatase Total Creatine Kinase Troponin I Total Protein Albumin Globulin Albumin/Globulin Ratio TSH Urine Color Urine Appearance Urine pH Ur Specific Hendrum Urine Protein Urine Glucose (UA) Urine Ketones Urine Blood Urine Nitrite Urine Bilirubin Urine Urobilinogen Ur Leukocyte Esterase Urine WBC (Auto) Urine RBC (Auto) U Hyaline Cast (Auto) U Epithel Cells (Auto) Urine Bacteria (Auto) SARS-CoV-2 Ag (Rapid)
[2020-10-26] MEDS: SPIRONOLACTONE 25 MG TAB PO SCH (12:53)
--- NOTE | 2020-10-26 13:35 | Electrocardiogram Report ---
Test Reason : Blood Pressure : / mmHG Vent. Rate : 093 BPM Atrial Rate : 093 BPM P-R Int : 182 ms QRS Dur : 100 ms QT Int : 336 ms P-R-T Axes : 085 007 111 degrees QTc Int : 417 ms Poor data quality, interpretation may be adversely affected Normal sinus rhythm Cannot rule out Inferior infarct , age undetermined T wave abnormality, consider lateral ischemia Abnormal ECG When compared with ECG of 06-DEC-2019 07:39, No significant change was found Confirmed by Alvin Leone ([id number]) on 10/26/2020 1:35:08 PM Referred By: REFERRED SELF Confirmed By:Alvin Leone
[2020-10-26] MEDS: allopurinoL 300 MG TAB PO SCH (21:16)
[2020-10-26] MEDS: ATORVASTATIN 40 MG TAB PO SCH (21:16)
[2020-10-26] MEDS: traZODone HCL 50 MG TAB PO SCH (21:16)
[2020-10-26] MEDS: INSULIN DETEMIR FLEXPEN/FLEX TOUCH 100 UNITS/ML 3ML SQ SCH (21:17)
[2020-10-27] MEDS: DOCUSATE SODIUM 100 MG CAP PO SCH ×2 (08:54→21:31)
[2020-10-27] MEDS: PARoxetine HCL 20 MG TAB PO SCH (08:55)
[2020-10-27] MEDS: TORSEMIDE 10 MG TAB PO SCH (08:55)
[2020-10-27] MEDS: FERROUS SULFATE 325 MG TAB PO SCH ×2 (08:55→21:31)
[2020-10-27] MEDS: METOPROLOL SUCC 50MG EXT REL TAB PO SCH (08:55)
[2020-10-27] MEDS: ASPIRIN 81 MG ECTAB PO SCH (08:55)
[2020-10-27] MEDS: INSULIN ASPART 100 UNITS/ML 3 ML PEN SC SCH ×4 (08:57→21:32)
--- NOTE | 2020-10-27 10:46 | Hospitalist Progress Note ---
Date of Service October 27, 2020 Assessment & Plan (1) Fall: Recurrent falls Trauma work-up negative for fractures PT OT eval noted. Rehab recommended Case management consulted for rehab placement Pelvic CT show bilateral renal cysts (2) CKD (chronic kidney disease): Renal function at baseline (3) Hypertension: Controlled Continue Toprol-XL (4) Diabetes: Insulin sliding scale per protocol Continue Levemir (5) Diastolic heart failure: Currently euvolemic Continue Toprol-XL, torsemide and Aldactone (6) DVT prophylaxis: Admission and Anticipated Discharge Date Admission Date: October 26, 2020 Subjective Patient has no complaints today Physical Exam Constitutional: + well hydrated; no acute distress and not obese Eyes: PERRL, conjunctivae normal, anicteric sclerae ENMT: external ear and nose normal, oropharynx normal Respiratory: normal respiratory effort, lungs clear to auscultation Cardiovascular: Rate/Rhythm: regular rate and regular rhythm S1-S2 Gastrointestinal (Abdomen): normal bowel sounds, soft, nontender, no hepatosplenomegaly Musculoskeletal: no cyanosis or clubbing, extremities motor strength 5/5 Neurologic: PERRL, EOMI, accommodation nl, no face palsy, no dysarthria Psychiatric: A+Ox3, euthymic affect Results & Data Results & Data ([facility]) Vital Signs (Past 12 Hours) Vital Signs Temp Pulse Resp BP Pulse Ox 10/27/20 07:44 36.8 C 85 16 149/89 H 94 Laboratory Results Laboratory Results - last 24 hr 10/26/20 10/26/20 10/27/20 17:29 20:53 08:20 POC Glucose 123 H 107 H 131 H 10/27/20 12:21 POC Glucose 138 H
[2020-10-27] MEDS: SPIRONOLACTONE 25 MG TAB PO SCH (12:58)
[2020-10-27] MEDS: ATORVASTATIN 40 MG TAB PO SCH (21:31)
[2020-10-27] MEDS: traZODone HCL 50 MG TAB PO SCH (21:31)
[2020-10-27] MEDS: allopurinoL 300 MG TAB PO SCH (21:31)
[2020-10-27] MEDS: INSULIN DETEMIR FLEXPEN/FLEX TOUCH 100 UNITS/ML 3ML SQ SCH (21:32)
[2020-10-28] MEDS: TORSEMIDE 10 MG TAB PO SCH (08:58)
[2020-10-28] MEDS: DOCUSATE SODIUM 100 MG CAP PO SCH (08:58)
[2020-10-28] MEDS: FERROUS SULFATE 325 MG TAB PO SCH (08:59)
[2020-10-28] MEDS: ASPIRIN 81 MG ECTAB PO SCH (08:59)
[2020-10-28] MEDS: METOPROLOL SUCC 50MG EXT REL TAB PO SCH (08:59)
[2020-10-28] MEDS: PARoxetine HCL 20 MG TAB PO SCH (08:59)
[2020-10-28] MEDS: INSULIN ASPART 100 UNITS/ML 3 ML PEN SC SCH ×2 (09:01→13:06)
[2020-10-28] MEDS: SPIRONOLACTONE 25 MG TAB PO SCH (13:04)
--- NOTE | 2020-10-28 14:37 | Discharge Summary ---
Date of Service October 28, 2020 Admission HPI Per Admitting Provider 75-year-old male with past medical history significant for type 2 diabetes, hyperlipidemia, COPD, obstructive sleep apnea, asthma, moderate persistent hypertension, chronic diastolic CHF, chronic kidney disease stage III, obesity, GERD, slow transit constipation, history of right renal hemorrhage, gout, arthropathy, depression, generalized anxiety disorder, decreased activities of daily living, impaired mobility and ADLs. Lives with his . At present, was brought in because of frequent falls. The patient says he fell a few times and brought him to the hospital. He had a similar admission in December of 2019. At that time, the patient was sent to [facility] for physical rehabilitation. The patient otherwise says he is doing okay. Denies any chest pain, no shortness of breath, no cough, no fever, no chills, no headache, no blurred visions, no earache, no runny nose, no sore throat, no nausea, no abdominal pain. Normal bowel and bladder movements. Ambulates without any help. Sometimes uses a walker. Currently resting comfortably and hemodynamically stable. Admission Exam Per Admitting Provider The patient is obese, not in acute distress. VITAL SIGNS: Temperature 36.7, pulse 91, respiratory rate 20, blood pressure 149/85, and oxygen 94% room air. HEENT: Pupils equal, round, and reactive to light. Oral mucosa moist. NECK: No neck masses seen. CARDIOVASCULAR: S1, S2 heard. Regular rate and rhythm, no murmur, no gallop. RESPIRATORY SYSTEM: Normal AP diameter. No accessory muscle use. No wheezing, no crackles. ABDOMEN: Soft, bowel sounds present, nontender. No distention. CENTRAL NERVOUS SYSTEM: Cranial nerves II-XII are grossly intact. Power 5/5 in all extremities. Coordination of movements normal. EXTREMITIES: No edema, no erythema seen. Principal Diagnosis Recurrent falls Discharge Exam Constitutional + well hydrated; no acute distress and not obese Eyes PERRL, conjunctivae normal, anicteric sclerae ENMT external ear and nose normal, oropharynx normal Respiratory normal respiratory effort, lungs clear to auscultation Cardiovascular Rate/Rhythm: regular rate and regular rhythm S1 S2 Gastrointestinal (Abdomen) normal bowel sounds, soft, nontender, no hepatosplenomegaly Musculoskeletal no cyanosis or clubbing, extremities motor strength 5/5 Neurologic PERRL, EOMI, accommodation nl, no face palsy, no dysarthria Psychiatric A+Ox3, euthymic affect Discharge Data Allergies Allergy/AdvReac Type Severity Reaction Status Date / Time minoxidil Allergy Intermediate RASH Verified 10/26/20 01:13 venlafaxine Allergy Intermediate HTN, SHAKEY Verified 10/26/20 01:13 amlodipine Allergy Unknown Unknown Verified 10/26/20 01:13 clonidine AdvReac Unknown INTOLERANT Verified 10/26/20 01:13 Consultations 10/26/20 01:13 ED Decision to Admit Stat 10/26/20 03:13 Consult Case Management - Discharge Planning Routine Ordered Studies 10/25/20 22:32 CT head/brain wo con Urgent No intra or extra-axial mass lesions are visualized. There is no CT evidence of acute cortical infarction. There is no evidence of midline shift. There is no acute hemorrhage. No calvarial fractures are visualized. There are patchy white matter hypodensities likely on a small vessel basis. There is no evidence of pathologic ventricular dilatation. There is no evidence of acute sinusitis IMPRESSION: No acute intracranial findings 10/25/20 23:55 CT pelvis wo con Urgent There is a partially visualized 15 cm lower pole left renal cyst with rim calcification. There is a partially visualized lower pole 7 cm right renal cyst with calcified septations. There is no SI joint diastases. No hip fractures or dislocations are visualized. No ischio pubic ring fractures are visualized. There is mild prostatomegaly. There are fat-containing inguinal hernias. IMPRESSION: 1. No acute fractures 2. Large bilateral lower pole renal masses likely representing complex cysts. Hospital Course (1) Fall: Recurrent falls Trauma work-up negative for fractures Was evaluated by PT/OT. Rehab recommended During hospital stay, patient did not need Klonopin prn anxiety. This was discontinued on discharge as this could be contributing to falls Pelvic CT show bilateral renal cysts (2) CKD (chronic kidney disease): Renal function at baseline (3) Hypertension: Controlled Continue Toprol-XL (4) Diabetes: Continue ozempic A1c - 5.5 (5) Diastolic heart failure: Currently euvolemic Continue Toprol-XL, torsemide and Aldactone Total Time Total Time Spent Total Time Spent (In Minutes): 35 Total Time Includes: Examination of the Patient, Discharge Planning and Medication Reconciliation Discharge Plan Discharge Items Patient Disposition: Transfer Inpatient Rehab Fac Reason For Visit: F[place]QU[place] FALLS Discharge Diagnosis: Recurrent falls Condition on Discharge: Fair Activity: As commented below Activity Comment: Per PT recommendations Non-emergency contact: Primary Care Provider Call non-emergency contact if: you have any medication questions Follow-up/Referrals: Keyon Rdz, [Primary Care Provider] - Diet: Carb Consistent or DM2 and Heart Healthy Addtl Attending Provider Instructions: Mr Muse. You came to the hospital due to frequent falls. You were evaluated and had Xrays and CT scans which did not show any fractures. You were evaluated by Physical therapy and being discharged to rehab. Please continue your medications Follow PT/OT instructions at rehab. Please stop taking Klonopin. You have not required it during your stay and this may be contributing to your falls. Please follow up with your Primary Doctor It was a pleasure taking care of you. Pending Studies at Discharge: No Stand-Alone Forms: My [facility] Skilled Items Patient informed of condition?: Yes DNR: No Discharge Level of Care: Acute rehab Communicable Disease: No Discharge Prognosis: Stable Lines: None Urinary Catheter: No Medications and DC Order Prescriptions: Continued aspirin 81 mg Tablet,Delayed Release (Dr/Ec) 81 mg PO QAM RF: 0 allopurinol 300 mg tablet 300 mg PO HS RF: 0 paroxetine HCl 40 mg tablet 40 mg PO QAM RF: 0 ferrous sulfate [iron] 325 mg (65 mg iron) Tablet 325 mg PO BID RF: 0 trazodone 50 mg tablet 50 mg PO HS RF: 0 torsemide 20 mg tablet 20 mg PO QAM RF: 0 metoprolol succinate 100 mg Tablet Extended Release 24 Hr 100 mg PO DAILY RF: 0 docusate sodium [Colace] 100 mg Capsule 100 mg PO BID RF: 0 spironolactone 25 mg Tablet 25 mg PO DAILY@12 RF: 0 Levemir FlexTouch U-100 Insuln 100 unit/mL (3 mL) Insulin Pen 28 unit SUBCUT HS RF: 0 Ozempic 0.25 mg or 0.5 mg(2 mg/1.5 mL) pen injector 0.5 mg SUBCUT VAN RF: 0 atorvastatin 40 mg tablet 40 mg PO HS RF: 0 Discontinued clonazepam 1 mg tablet 1 mg PO BID PRN (Reason: Anxiety) RF: 0 Discharge Orders: Discharge Order (Routine); Ordered 10/28/20 Ordered By: Yady Fritz/Other Patient Handouts: High Blood Sugar (Hyperglycemia), Hypoglycemia (Low Blood Sugar), Managing Type 2 Diabetes Admission Data Admit Date/Time: 10/26/20 01:37 Attending Provider: Yady Mcdaniels I. Admit Provider: Leo Velasco Primary Care Provider: Keyon Rdz Other Providers: Leo Velasco ; [facility] Other Interventions: Discharge Summary Assessment (RN) Last Done: 10/28/20 14:22
== END 2020-10-28 16:01 | DRG 92 ==
LOC: ED 22:07 → 3N 10-26 01:37

== ENCOUNTER 2022-04-05 22:59 | Inpatient (IN) ==
--- NOTE | 2022-04-05 23:06 | Emergency Department Note ---
Impression & Plan Acute hypoxemic respiratory failure, Right lower lobe pneumonia, Respiratory arrest ED Provider Note Name: JESSICA DELCID Age: 77 Sex: M Arrives Via: Ambulance Informant: Patient, EMS ED Provider: Sukhdeep Martinez MD Chief Complaint: Respiratory distress Impression: Per impressions above Medical Decision Makin-year-old gentleman arrives for evaluation of severe respiratory distress. Patient with extensive past medical history including CKD, DM2, CHF, COPD, GERD, hypertension amongst multiple other comorbidities arrives following sort of respiratory arrest. Patient initially had been called out for EMS after sliding off a chair and too weak to get up. He was witnessed to go into a respiratory arrest in front of EMS however with bagging were able to resuscitate him no CPR was necessary. Arrived on CPAP doing much better and switched him over to BiPAP and vastly improved on this. Work-up remarkable for new right lower lobe infiltrate, effusion. He has a white count of 18. He does not have a fever at this time. He reportedly has been ill for at least a week or 2. I do not think that this is congestive heart failure given the findings but it may be contributing to his respiratory difficulty. Given pneumonia and illness I did think that Zosyn was a reasonable broad-spectrum antibiotic. He is not hypotensive nor does he have a lactic acidosis and I feel given the fluid overload a fluid bolus would not be indicated at this time. Labs otherwise are relatively unremarkable. Patient is breathing much better on BiPAP is comforta ble for over an hour and thus with er work-up completed hospitalist was consulted for further management. Given the findings I think it is unlikely that this is PE and I would be a bit hesitant to lay him flat to get a CTA of the chest at this time as it is. No clear evidence of ACS though given the reported respiratory arrest he will need further cardiac rule out as well. Prior Medical Record and Triage/Nursing Notes reviewed by Me Additional history obtained from chart and EMS Differentials:Reactive airway disease, pneumonia, pneumothorax, COPD, CHF, i nfections, cardiac ischemia, pulmonary embolism, musculoskeletal, gastrointestinal, as well as other pathologies. Vital Signs: reviewed and remarkable for no significant abnormalities Interventions: Zosyn 4.5 g IV, BiPAP Labs:Reviewed and remarkable for white blood cell count 18 Imaging:Chest x-ray compared to old reveals a right lower lobe infiltrate with a increase in the left pleural effusion EKG:Per My Interpretation: Indication shob: NSR 96 bpm, qtc 477. No Ectopy. No Ischemia. Compared to EKG 04/19/21, no significant changes other than Lateral T wave inversions worse than previous. Cardiac/Tele Monitoring: Cardiac Monitoring: An Order was placed for continuous cardiac monitoring. The monitor shows a rate of 90 with a normal sinus rhythm. Consults:Dr Francisca Melendez hospitalist Plan: Disposition:Hospitalization. Condition: Good History of Present Illness:77-year-old gentleman arrives for evaluation of shortness of breath. Patient has been having worsening weakness and fatigue. Apparently this evening he slid off his couch/chair. Due to weakness was called. On EMS arrival they noted patient was quite weak and ill-appearing. While awaiting oral surgery assistant patient became worsening respiratory distress and then became apneic and unresponsive. He required several minutes of bagging and IV was established. Initially plan was to intubate the patient gradually came to and started breathing on his own again. He was placed on CPAP and taken to the hospital for further management. He received no medications prior to arrival. Is awake somewhat dyspneic. He denies any chest pain, abdominal pain, back pain , headaches or other complaints at this time. He notes that his shortness of breath has been worsening for the last 2 weeks. It is much worse with exertion and better with rest. His weakness has been worsening as well. Denies any trauma and notes that he just slid off the chair. ROS: See above HPI for pertinent positives & negatives. A total of 10 systems reviewed and were otherwise negative. Past Medical History:See Below Past Surgical History:See Below Family History:See Below Social History:See Below Home Medications:See Below Allergies:See Below Vitals:Blood Pressure: 139/89, Pulse 94, RR 29, T 36.6C, O2 97% on RA Physical Exam: GENERAL: Patient is unwell appearing and in moderate distress. Use diaphoretic male. EYES: No scleral icterus, unremarkable pupils. ENT: Mucous membranes moist, no nasal congestion. NECK: No masses appreciated, nomeningismus, trachea is midline. RESPIRATORY: Diffuse crackles bilateral bases mild dyspnea moderate tachypnea on BiPAP appears relatively comfortable. CARDIOVASCULAR: Regular rate and rhythm.No murmurs, rubs, gallops appreciated. GASTROINTESTINAL: Abdomen soft, non-tender, no peritonitis.Bowel sounds positive.No masses appreciated. BACK: No midline tenderness, no CVA tenderness EXTREMITIES: Normal motion all extremities, no cyanosis, mild bilateral edema. NEUROLOGIC: Alert and oriented, no acute motor or sensory deficits, no focal weakness, cranial nerves grossly intact. SKIN: No rash, no jaundice, no diaphoresis. PSYCH: Appropriate GCS: 15 ED Course: Times/Reassessments: Patient rapidly improving with BiPAP and breathing comfortably on multiple reevaluations. Sats remained in the mid to upper 90s and he is in no significant distress other than a bit tachypneic. Critical Care: I have personally spent 35 minutes of critical care time in the direct management of this patient. Acute respiratory distress with right lower lobe pneumonia requiring bipap. This was a life/limb threatening event. This 35 minutes is in excess of all separately billable procedures. Sukhdeep Martinez MD Past Med/Surg History Medical History (Updated 04/06/22 @ 11:29 by STARLA Hodgson) Anxiety CKD (chronic kidney disease) stage 3, GFR 30-59 ml/min COPD (chronic obstructive pulmonary disease) Depression Diabetes mellitus type 2 in obese Diastolic heart failure Dyslipidemia Essential hypertension Essential tremor GERD (gastroesophageal reflux disease) GI bleed (03/14/14) Gout Obstructive sleep apnea on CPAP Restless leg syndrome Restrictive airway disease Surgical History H/O colonoscopy " 04/09/2014- adenomatous & TVA polyps, diverticulosis 04/29/2015- normal " H/O colonoscopy with polypectomy "2012 - polyps, adenomatous" H/O esophagogastroduodenoscopy " 03/15/2014- mild-mod inflammation " History of pericardiotomy S/P tonsillectomy and adenoidectomy Family History Other Coronary heart disease Stroke Social History Smoking Status: Never smoker Second Hand Exposure: No; Hx Alcohol Use: Yes Alcohol type: beer Hx Substance Use: No Preferred Language: Lao Communication Ability: Effective Visual Impairment: Limited Manager Games Required: No Beliefs That Will Affect Care: None marital status: Current Living Situation: Spouse Other Information That Helps Us Care for You: No Feels Safe at Home: Yes Safety Concerns: Feels Safe At This Time Assistive Devices: Oxygen - Continuous and Walker Allergies Allergies Allergy/AdvReac Type Severity Reaction Status Date / Time minoxidil Allergy Intermediate RASH Verified 04/05/22 23:55 venlafaxine Allergy Intermediate HTN, SHAKEY Verified 04/05/22 23:55 amlodipine Allergy Unknown Unknown Verified 04/05/22 23:55 clonidine AdvReac Unknown INTOLERANT Verified 04/05/22 23:55 Home Meds Home Medications Medication Instructions Recorded Confirmed allopurinol 300 mg tablet 300 mg PO HS 11/30/18 04/05/22 aspirin 81 mg tablet,delayed 81 mg PO QAM 11/30/18 04/05/22 release ferrous sulfate 325 mg (65 mg 325 mg PO DAILY 11/30/18 04/05/22 iron) tablet (iron) paroxetine HCl 40 mg tablet 40 mg PO QAM 11/30/18 04/05/22 trazodone 50 mg tablet 50 mg PO HS 12/31/18 04/05/22 metoprolol succinate 100 mg 100 mg PO DAILY 02/28/19 04/05/22 tablet,extended release 24 hr torsemide 20 mg tablet 20 mg PO QAM 02/28/19 04/05/22 insulin detemir U-100 100 unit/mL 28 unit SUBCUT HS 12/05/19 04/05/22 (3 mL) subcutaneous pen (Levemir FlexTouch U-100 Insulin) atorvastatin 40 mg tablet 40 mg PO HS 10/26/20 04/05/22 cholecalciferol (vitamin D3) 25 25 mcg PO DAILY 04/05/22 04/05/22 mcg (1,000 unit) tablet (Vitamin D3) lisinopril 5 mg tablet 5 mg PO QAM 04/05/22 04/05/22 Results & Data (ED) Vital Signs Vital Signs - 24 hr 04/05/22 23:05 04/05/22 23:06 04/05/22 23:28 Temperature 36.6 C Temperature Source Oral Pulse Rate 95 H 96 H 93 H Pulse Rate [Apical] Pulse Rate from SpO2 Sensor 94 H Respiratory Rate 28 H 28 H 27 H Respiratory Effort / Characteristics Non-Labored Spontaneous Short of Breath Respiratory Depth Normal Respiratory Pattern Regular Blood Pressure 170/107 H 137/83 Blood Pressure Mean 128 101 Pulse Oximetry 97 96 98 Oxygen Delivery Method BiPAP BiPAP Fraction of Inspired Oxygen 40 40 40 SaO2/FiO2 Ratio 240 Sepsis Recent Fever Within 48 Hours No Sepsis New/Unexplained Change in Mental Status N/A Sepsis Action Taken by Nursing No Action Required 04/05/22 23:30 04/05/22 23:31 04/06/22 00:00 Temperature Temperature Source Pulse Rate 94 H 90 Pulse Rate [Apical] Pulse Rate from SpO2 Sensor 94 H 89 Respiratory Rate 29 H 29 H Respiratory Effort / Characteristics Respiratory Depth Respiratory Pattern Blood Pressure 139/89 140/87 Blood Pressure Mean 105 104 Pulse Oximetry 97 99 Oxygen Delivery Method BiPAP BiPAP BiPAP Fraction of Inspired Oxygen 40 40 SaO2/FiO2 Ratio Sepsis Recent Fever Within 48 Hours Sepsis New/Unexplained Change in Mental Status Sepsis Action Taken by Nursing 04/06/22 00:27 04/06/22 00:30 04/06/22 01:00 Temperature Temperature Source Pulse Rate 83 82 78 Pulse Rate [Apical] 82 Pulse Rate from SpO2 Sensor 82 78 Respiratory Rate 24 23 23 Respiratory Effort / Characteristics Non-Labored Spontaneous Respiratory Depth Normal Respiratory Pattern Regular Blood Pressure 143/82 H 140/77 Blood Pressure Mean 102 98 Pulse Oximetry 99 100 96 Oxygen Delivery Method BiPAP BiPAP BiPAP Fraction of Inspired Oxygen 30 30 30 SaO2/FiO2 Ratio Sepsis Recent Fever Within 48 Hours Sepsis New/Unexplained Change in Mental Status Sepsis Action Taken by Nursing Laboratory Data Result diagrams: 04/06/22 03:03 04/06/22 03:03 Lab Results 04/05/22 04/05/22 04/05/22 Range/Units 23:09 23:28 23:28 WBC (4.8-10.8) K/uL RBC (4.7-6.1) M/uL Hgb (14.0-18.0) g/dL Hct (42-52) % MCV (80-100) fL MCH (25-34) pg MCHC (32-36) g/dL RDW Std Deviation (36.4-46.3) fL RDW Coeff of Alfonso (11.5-14.5) % Plt Count (130-400) K/uL MPV (7.4-10.4) fL Immature Gran % (Auto) % Neut % (Auto) % Lymph % (Auto) % [place] % (Auto) % Eos % (Auto) % Baso % (Auto) % Neut # (Auto) (1.4-6.5) K/uL Lymph # (Auto) (1.2-3.4) K/uL [place] # (Auto) (0.11-0.59) K/uL Eos # (Auto) (0-0.5) K/uL Baso # (Auto) (0-0.2) K/uL Immature Gran # (Auto) (0.00-0.02) K/uL PT (9.0-12.0) Seconds INR (0.9-1.1) VBG pH (7.36-7.41) VBG pCO2 (38-50) mmHg VBG pO2 mmHg VBG HCO3 mmol/L VBG O2 Saturation % VBG Base Excess mEq/L Barometric Pressure mm/Hg Sodium (136-145) mmol/L Potassium (3.5-5.1) mmol/L Chloride (98-107) mmol/L Carbon Dioxide (21-32) mmol/L Anion Gap (3-11) BUN (6-23) mg/dl Creatinine (0.6-1.4) mg/dl Est Cr Clr Drug Dosing ml/min Est GFR ( Amer) ml/min Est GFR (Non-Af Amer) ml/min BUN/Creatinine Ratio (10-20) Glucose (70-99(Fasting)) mg/dl Lactate 2.0 (0.4-2.0) mmol/L Calcium (8.5-10.1) mg/dl Magnesium (1.7-2.4) mg/dl Total Bilirubin (0.2-1.0) mg/dl Direct Bilirubin (0-0.2) mg/dl AST (13-39) U/L ALT (7-52) U/L Alkaline Phosphatase (34-104) U/L Troponin I High Sens (0-20) pg/ml B-Natriuretic Peptide 343 H (0-100) pg/ml Total Protein (6.0-8.3) gm/dl Albumin (3.4-5.0) gm/dl Lipase (11-82) U/L TSH (0.300-4.500) uIu/ml Free T4 (0.61-1.60) ng/dl SARS-CoV-2 (PCR) NEGATIVE (Negative) Influenza Type A (PCR) Negative (Neg) Influenza Type B (PCR) Negative (Neg) RSV (RT-PCR) Negative (Neg) 04/05/22 04/05/22 04/05/22 Range/Units 23:28 23:28 23:28 WBC 18.88 H (4.8-10.8) K/uL RBC 5.36 (4.7-6.1) M/uL Hgb 14.7 (14.0-18.0) g/dL Hct 47.5 (42-52) % MCV 88.6 (80-100) fL MCH 27.4 (25-34) pg MCHC 30.9 L (32-36) g/dL RDW Std Deviation 53.4 H (36.4-46.3) fL RDW Coeff of Alfonso 16.8 H (11.5-14.5) % Plt Count 373 (130-400) K/uL MPV 9.2 (7.4-10.4) fL Immature Gran % (Auto) 0.8 % Neut % (Auto) 81.7 % Lymph % (Auto) 8.8 % [place] % (Auto) 5.1 % Eos % (Auto) 3.4 % Baso % (Auto) 0.2 % Neut # (Auto) 15.42 H (1.4-6.5) K/uL Lymph # (Auto) 1.66 (1.2-3.4) K/uL [place] # (Auto) 0.97 H (0.11-0.59) K/uL Eos # (Auto) 0.65 H (0-0.5) K/uL Baso # (Auto) 0.03 (0-0.2) K/uL Immature Gran # (Auto) 0.15 H (0.00-0.02) K/uL PT 10.8 (9.0-12.0) Seconds INR 1.0 (0.9-1.1) VBG pH (7.36-7.41) VBG pCO2 (38-50) mmHg VBG pO2 mmHg VBG HCO3 mmol/L VBG O2 Saturation % VBG Base Excess mEq/L Barometric Pressure mm/Hg Sodium 136 (136-145) mmol/L Potassium 4.6 (3.5-5.1) mmol/L Chloride 96 L (98-107) mmol/L Carbon Dioxide 32 (21-32) mmol/L Anion Gap 8 (3-11) BUN 23 (6-23) mg/dl Creatinine 1.47 H (0.6-1.4) mg/dl Est Cr Clr Drug Dosing 52.8 ml/min Est GFR ( Amer) 53.3 ml/min Est GFR (Non-Af Amer) 46.0 ml/min BUN/Creatinine Ratio 15.6 (10-20) Glucose 168 H (70-99(Fasting)) mg/dl Lactate (0.4-2.0) mmol/L Calcium 8.4 L (8.5-10.1) mg/dl Magnesium 1.7 (1.7-2.4) mg/dl Total Bilirubin 0.8 (0.2-1.0) mg/dl Direct Bilirubin 0.1 (0-0.2) mg/dl AST 14 (13-39) U/L ALT 11 (7-52) U/L Alkaline Phosphatase 117 H (34-104) U/L Troponin I High Sens 13.6 (0-20) pg/ml B-Natriuretic Peptide (0-100) pg/ml Total Protein 7.6 (6.0-8.3) gm/dl Albumin 3.9 (3.4-5.0) gm/dl Lipase 47 (11-82) U/L TSH (0.300-4.500) uIu/ml Free T4 (0.61-1.60) ng/dl SARS-CoV-2 (PCR) (Negative) Influenza Type A (PCR) (Neg) Influenza Type B (PCR) (Neg) RSV (RT-PCR) (Neg) 04/05/22 04/05/22 Range/Units 23:28 23:31 WBC (4.8-10.8) K/uL RBC (4.7-6.1) M/uL Hgb (14.0-18.0) g/dL Hct (42-52) % MCV (80-100) fL MCH (25-34) pg MCHC (32-36) g/dL RDW Std Deviation (36.4-46.3) fL RDW Coeff of Alfonso (11.5-14.5) % Plt Count (130-400) K/uL MPV (7.4-10.4) fL Immature Gran % (Auto) % Neut % (Auto) % Lymph % (Auto) % [place] % (Auto) % Eos % (Auto) % Baso % (Auto) % Neut # (Auto) (1.4-6.5) K/uL Lymph # (Auto) (1.2-3.4) K/uL [place] # (Auto) (0.11-0.59) K/uL Eos # (Auto) (0-0.5) K/uL Baso # (Auto) (0-0.2) K/uL Immature Gran # (Auto) (0.00-0.02) K/uL PT (9.0-12.0) Seconds INR (0.9-1.1) VBG pH 7.27 L (7.36-7.41) VBG pCO2 70 H (38-50) mmHg VBG pO2 34 mmHg VBG HCO3 32 mmol/L VBG O2 Saturation < 60.0 % VBG Base Excess 2.3 mEq/L Barometric Pressure 731.7 mm/Hg Sodium (136-145) mmol/L Potassium (3.5-5.1) mmol/L Chloride (98-107) mmol/L Carbon Dioxide (21-32) mmol/L Anion Gap (3-11) BUN (6-23) mg/dl Creatinine (0.6-1.4) mg/dl Est Cr Clr Drug Dosing ml/min Est GFR ( Amer) ml/min Est GFR (Non-Af Amer) ml/min BUN/Creatinine Ratio (10-20) Glucose (70-99(Fasting)) mg/dl Lactate (0.4-2.0) mmol/L Calcium (8.5-10.1) mg/dl Magnesium (1.7-2.4) mg/dl Total Bilirubin (0.2-1.0) mg/dl Direct Bilirubin (0-0.2) mg/dl AST (13-39) U/L ALT (7-52) U/L Alkaline Phosphatase (34-104) U/L Troponin I High Sens (0-20) pg/ml B-Natriuretic Peptide (0-100) pg/ml Total Protein (6.0-8.3) gm/dl Albumin (3.4-5.0) gm/dl Lipase (11-82) U/L TSH 6.262 H (0.300-4.500) uIu/ml Free T4 0.81 (0.61-1.60) ng/dl SARS-CoV-2 (PCR) (Negative) Influenza Type A (PCR) (Neg) Influenza Type B (PCR) (Neg) RSV (RT-PCR) (Neg) Administered Medications Aspirin (Aspirin 81 Mg Ectab) 81 mg PO QAM [facility] Stop: 05/06/22 08:59 Last Admin: 04/06/22 07:42 Dose: 81 mg Documented by: [id number] Furosemide (Furosemide 40 Mg/4 Ml Vial) 40 mg IV BID [facility] Stop: 05/06/22 08:59 Last Admin: 04/06/22 09:46 Dose: 40 mg Documented by: [id number] Heparin Sodium (Porcine) (Heparin Sod 5,000 Unit/0.5 Ml Vial) 5,000 units SQ Q8 [facility] Stop: 05/06/22 05:59 Last Admin: 04/06/22 06:16 Dose: 5,000 units Documented by: [id number] Piperacillin Sod/Tazobactam (Sod 4.5 gm/ Dextrose) 120 mls @ 30 mls/hr IV Q8H [facility]; Protocol Stop: 04/13/22 08:59 Last Admin: 04/06/22 09:46 Dose: 30 mls/hr Documented by: [id number] Insulin Aspart (Insulin Aspart Per Unit) 0 units SC Q6 [facility] Stop: 05/06/22 02:46 Last Admin: 04/06/22 06:16 Dose: 2 units Documented by: [id number] Cosigned by: [id number] Admin: 04/06/22 03:01 Dose: 2 units Documented by: [id number] Cosigned by: [id number] Ipratropium Bally (Ipratropium Bally Neb Soln 0.02% 2.5 Ml Vial) 0.5 mg INH Q6R [facility] Stop: 05/06/22 06:59 Last Admin: 04/06/22 07:03 Dose: 0.5 mg Documented by: [id number] Levalbuterol HCl (Levalbuterol 1.25mg/0.5ml Neb) 1.25 mg INH Q6R [facility] Stop: 05/06/22 06:59 Last Admin: 04/06/22 07:03 Dose: 1.25 mg Documented by: [id number] Metoprolol Succinate (Metoprolol Succ 50mg Ext Rel Tab) 100 mg PO DAILY [facility] Stop: 05/06/22 08:59 Last Admin: 04/06/22 07:42 Dose: 100 mg Documented by: [id number] Paroxetine HCl (Paroxetine Hcl 20 Mg Tab) 40 mg PO QAM [facility] Stop: 05/06/22 08:59 Last Admin: 04/06/22 07:43 Dose: 40 mg Documented by: [id number] Discontinued Medications Piperacillin Sod/Tazobactam Sod (Zosyn) 4.5 gm in 120 mls @ 240 mls/hr IV NOW ONE Stop: 04/06/22 00:22 Last Infusion: 04/06/22 00:28 Dose: 0 mls/hr Documented by: [id number] Admin: 04/05/22 23:58 Dose: 240 mls/hr Documented by: [id number] Magnesium Sulfate/Dextrose (Magnesium Sulfate / D5w) 1 gm in 100 mls @ 50 mls/hr IV Q2H [facility] Stop: 04/06/22 04:29 Last Infusion: 04/06/22 05:21 Dose: 0 mls/hr Documented by: [id number] Admin: 04/06/22 02:54 Dose: 50 mls/hr Documented by: [id number] Infusion: 04/06/22 02:28 Dose: 50 mls/hr Documented by: [id number] Admin: 04/06/22 00:28 Dose: 50 mls/hr Documented by: [id number] Doxycycline Hyclate 100 mg/ (Dextrose) 110 mls @ 50 mls/hr IV NOW STA Stop: 04/06/22 03:09 Last Infusion: 04/06/22 04:08 Dose: 0 mls/hr Documented by: [id number] Admin: 04/06/22 01:32 Dose: 50 mls/hr Documented by: [id number] Albumin Human (Albumin 25% 100 Ml) 25 gm in 100 mls @ 50 mls/hr IV ONE STA Stop: 04/06/22 03:07 Last Infusion: 04/06/22 03:17 Dose: 0 mls/hr Documented by: [id number] Admin: 04/06/22 01:12 Dose: 50 mls/hr Documented by: [id number] Insulin Glargine (Insulin Glargine Solostar 100 Units/Ml 3 Ml Pen) 10 units SC NOW STA Stop: 04/06/22 01:12 Last Admin: 04/06/22 01:35 Dose: 10 units Documented by: [id number] Cosigned by: [id number] Ioversol (Optiray 320 125ml) 120 ml IV ONCE ONE Stop: 04/06/22 02:25 Last Admin: 04/06/22 02:24 Dose: 120 ml Documented by: [id number] Ipratropium Bally (Ipratropium Bally Neb Soln 0.02% 2.5 Ml Vial) 0.5 mg INH ONE STA Stop: 04/06/22 00:21 Last Admin: 04/06/22 00:25 Dose: 0.5 mg Documented by: [id number] Levalbuterol HCl (Levalbuterol 1.25mg/0.5ml Neb) 1.25 mg INH ONE STA Stop: 04/06/22 00:21 Last Admin: 04/06/22 00:25 Dose: 1.25 mg Documented by: [id number] Methylprednisolone (Methylprednisolone 40 Mg/Ml Vial) 40 mg IV ONE STA Stop: 04/06/22 00:35 Last Admin: 04/06/22 00:50 Dose: 40 mg Documented by: [id number] Metoprolol Tartrate (Metoprolol Tartrate 1 Mg/Ml Vial) 2.5 mg IV NOW STA Stop: 04/06/22 06:48 Last Admin: 04/06/22 07:59 Dose: Not Given Documented by: [id number] Imaging Data Radiologist's Impression: Chest X-Ray 04/05/22 23:04 XR chest 1V portable CLINICAL HISTORY: shob TECHNIQUE: Single frontal radiograph of the chest was obtained. Comparison: Comparison is made to chest radiograph 04/19/2021 FINDINGS: No lines and tubes are seen. Cardiomegaly is noted. Bilateral lower lung predominant airspace opacities are seen. Pulmonary vascular congestion is seen. There are are small bilateral pleural effusions, left greater than right. IMPRESSION: 1. Bilateral lower lung predominant airspace opacities which may represent atelectasis, pneumonia, and/or aspiration. 2. Mild pulmonary edema. 3. Small bilateral pleural effusions. ACT 112: Negative or not required by law. Electronically signed by: Abdirashid Nelson M.D. 04/06/2022 7:29 AM Chest CTA 04/06/22 01:03 CT angio chest PE protocol CT DOSE: 1085.26 mGy.cm HISTORY: 77 years-old Male with sob. Acute shortness of breath TECHNIQUE: Multiple CTA images of the chest were obtained after the intravenous administration of 120 ml Optiray. Coronal and sagittal MIPS were obtained from the axial data set and were submitted for review. All measurements were obt ained according to NASCET criteria. A dose lowering technique was utilized adhering to the principles of ALARA. COMPARISON: Chest CT 02/28/2019 FINDINGS: CTA: Moderate cardiomegaly. Mediastinal lipomatosis. No pericardial effusion. Extensive coronary artery calcifications. Atherosclerosis of the thoracic aorta without aneurysm. Unremarkable visualized pulmonary artery, suboptimally evaluated secondary to respiratory motion artifact. No pulmonary emboli are identified. CT CHEST: 1.7 cm exophytic nodule of the posterior left thyroid. 1.8 x 1.2 cm lymph node within the right tracheoesophageal recess on image 217 series 4 is similar to mildly decreased in size from the prior study. Calcified left hilar lymph nodes. Small to moderate layering pleural effusions. No pneumothorax. Intralobular septal thickening is noted in conjunction with patchy bilateral groundglass opacities. Dependent bibasilar consolidation with mild linear consolidation of the lingula suggestive of atelectasis. There are no suspicious pulmonary nodules or masses identified. There is no acute process of the imaged upper abdomen. The spleen is enlarged. Partially imaged 8.6 cm cyst of the superior pole right kidney. Unremarkable soft tissues. Gynecomastia. Indeterminate peripherally sclerotic lucent lesion is noted involving the anterior right sixth rib which is unchanged and likely benign. IMPRESSION: 1. No pulmonary emboli identified. 2. Cardiomegaly with small to moderate layering pleural effusions and mild bibasilar predominant atelectasis. 3. Interstitial pulmonary edema with bilateral groundglass densities suggestive of alveolar pulmonary edema. An infectious or inflammatory pneumonitis could appear similarly however is considered less likely. 4. Splenomegaly. ACT 112: Negative or not required by law. The above report was generated using voice recognition software. It may contain grammatical, syntax or spelling errors. Electronically signed by: Jim Ortega M.D. 04/06/2022 6:[address] 04/06/22 01:03 CT head/brain wo con CLINICAL HISTORY: 77 years-old Male with ams. Acutely altered mental status TECHNIQUE: Multiple axial CT images of the head were obtained without contrast. A dose lowering technique was utilized adhering to the principles of ALARA. CT DOSE: 853.38 mGy.cm COMPARISON: Head CT 10/25/2020 FINDINGS: No acute intracranial hemorrhage, midline shift, intra-axial mass, hydrocephalus, territorial ischemia or abnormal extra-axial collection. Age- related involutional changes with ex vacuo ventriculomegaly. White matter hypodensities are suggestive of chronic microvascular ischemic disease. Chronic lacunar infarct of the left lentiform nucleus. Cerebral vascular calcifications. 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 The calvarium is intact. The paranasal sinuses, mastoid air cells, and middle ear cavities are clear. IMPRESSION: No acute intracranial abnormality. ACT 112: Negative or not required by law. The above report was generated using voice recognition software. It may contain grammatical, syntax or spelling errors. Electronically signed by: Jim Ortega M.D. 04/06/2022 6:25 AM Discharge Plan Visit Data Chief Complaint: Respiratory Distress ED Provider: Sukhdeep Martinez Discharge Problem: Acute hypoxemic respiratory failure, Right lower lobe pneumonia, Respiratory arrest Patient Disposition: Admitted As Inpatient Discharge Instructions Interventions: ED Discharge Assessment Last Done: 04/06/22 01:52 Discharge Problem: Right lower lobe pneumonia Qualifiers: Pneumonia type: due to unspecified organism Qualified Code(s): J18.9 - Pneumonia, unspecified organism
[2022-04-05 23:45] LABS: Basophils # (auto) 0.03 K/uL (0-0.2); Basophils % (auto) 0.2 %; Eosinophils # (auto) 0.65 K/uL (0-0.5); Eosinophils % (auto) 3.4 %; Hematocrit (blood only) 47.5 % (42-52); Hemoglobin 14.7 g/dL (14.0-18.0); Immature Granulocytes # (auto) 0.15 K/uL (0.00-0.02); Immature Granulocytes % (auto) 0.8 %; Lymphocytes # (auto) 1.66 K/uL (1.2-3.4); Lymphocytes % (auto) 8.8 %; Mean Corpuscular Hemoglobin 27.4 pg (25-34); Mean Corpuscular Hgb Conc 30.9 g/dL (32-36); Mean Corpuscular Volume 88.6 fL (80-100); Mean Platelet Volume 9.2 fL (7.4-10.4); Monocytes # (auto) 0.97 K/uL (0.11-0.59); Monocytes % (auto) 5.1 %; Neutrophils # (auto) 15.42 K/uL (1.4-6.5); Neutrophils % (auto) 81.7 %; Platelet Count 373 K/uL (130-400); RDW Coefficient of Variation 16.8 % (11.5-14.5); RDW Standard Deviation 53.4 fL (36.4-46.3); Red Blood Count 5.36 M/uL (4.7-6.1); White Blood Count 18.88 K/uL (4.8-10.8)
[2022-04-05] MEDS ORDERED: PIPERACILLIN/TAZOBACTAM 4.5 GM/120 ML BAG IV ONE (23:53)
[2022-04-05 23:59] LABS: Base Excess VBG 2.3 mEq/L; HCO3 VBG 32 mmol/L; PCO2 VBG 70 mmHg (38-50); PO2 VBG 34 mmHg; pH VBG 7.27 (7.36-7.41)
[2022-04-06 00:02] LABS: Prothrombin Time 10.8 Seconds (9.0-12.0)
[2022-04-06 00:03] LABS: Albumin Level 3.9 gm/dl (3.4-5.0); BUN Creatinine Ratio 15.6 (10-20); Bilirubin Direct 0.1 mg/dl (0-0.2); Bilirubin,Total 0.8 mg/dl (0.2-1.0); Calcium 8.4 mg/dl (8.5-10.1); Creatinine Clr Calc Pharmacy 52.8 ml/min; Est GFR (African American) 53.3 ml/min; Magnesium 1.7 mg/dl (1.7-2.4); Potassium 4.6 mmol/L (3.5-5.1); Total Protein 7.6 gm/dl (6.0-8.3)
[2022-04-06 00:04] LABS: Oxygen Saturation VBG < 60.0 %
[2022-04-06 00:09] LABS: Troponin I High Sensitivity 13.6 pg/ml (0-20)
[2022-04-06 00:11] LABS: Influenza A virus by PCR Negative (Neg); Influenza B virus by PCR Negative (Neg); RSV by PCR Negative (Neg); SARS CoV2 RNA(COVID-19) InHosp NEGATIVE (Negative)
[2022-04-06] MEDS ORDERED: XOPENEX/ATROVENT 1.25mg/0.5MG NEB COMBO NEB STA (00:16)
[2022-04-06] MEDS ORDERED: IPRATROPIUM BROMIDE NEB SOLN 0.02% 2.5 ML VIAL INH STA (00:20)
[2022-04-06] MEDS ORDERED: LEVALBUTEROL 1.25MG/0.5ML NEB INH STA (00:20)
[2022-04-06] MEDS ORDERED: methylPREDNISolone 40 MG in SYRINGE 0 ML IV STA (00:21)
[2022-04-06] MEDS: MAGNESIUM SULFATE / D5W 1 GM/100 ML BAG IV SCH ×2 (00:28→02:54)
[2022-04-06] MEDS ORDERED: DOXYCYCLINE HYCLATE 100 MG in DEXTROSE 5% 100 ML IV STA (00:58)
--- NOTE | 2022-04-06 01:03 | History & Physical Report ---
Date of Service April 06, 2022 Assessment & Plan (1) Encephalopathy: Plan: Multifactorial: Hypoxemic, hypercapnic respiratory failure/respiratory acidosis secondary to possible asthma/COPD exacerbation (obstructive sleep apnea/restrictive lung disease as per records), possible sepsis Uncontrolled hypertension Home neuropsychotropic medications contributory Rule out UTI chronic diastolic heart failure (EF 60-65% TTE 2018), equivocal volume status presumptive CAD as per records DM2 insulin requiring, well-controlled as of recent hemoglobin A1c of 6.31 January 2022 CRI, creatinine at baseline hx thyroid nodule, recent outpatient ENT evaluation, FNA biopsy recommended renal cysts with history of hemorrhage requiring C transfer in 2019, patient yet to follow-up with urology outpatient Ambulatory dysfunction/probable functional disability PCU Continue BiPAP Recheck ABG Nebs RTC, steroid course CS, Doxycycline for now Pulmonary consult if without improvement Facilitate home BP meds Hold home trazodone until patient mentation back to baseline Basal insulin, ISS BG goal 110-140, carb count coverage PT OT eval once medically stable DVT prophylaxis. Heparin subcu Full code Attempted to contact patient's (Ms. Kathy Muse, contact #[phone]) over the phone to obtain additional history and to discuss plan of care. No answer. Left message for call back. Total critical care time was 45 minutes. Text document was generated using [employer] voice recognition software. It may contain grammatical or spelling errors. Kindly contact undersigned for clarification of any documentation item in question. History of Present Illness Chief Complaint: Shortness of breath Primary Care Provider: Keyon Rdz DO History obtained from patient and records. Limited history from patient secondary to disorientation. Medical history significant for chronic respiratory failure on home O2, obst ructive sleep apnea on CPAP/COPD/restrictive lung disease as per records, chronic diastolic heart failure (EF 60-65% TTE 2018), presumptive CAD as per records, hypertension, DM2 insulin requiring, CRI (baseline creatinine of 1.4), thyroid nodule, renal cysts. Last confinement October 2020 for recurrent falls. Patient discharged to rehab prior to returning home. Patient seen at PCP's office 6 weeks ago on follow-up visit. Patient sleeps from 10 PM until 2 PM in the afternoon as per . Patient does not get out of bed or do anything active. Patient having trouble caring for patient. requesting for PT to come to house to help promote mobility as per note. Frequent falls necessitating EMS calls to help patient get up. PCP discussed possible long-term placement which patient and declined as per note. MRI lumbar spine recommended to rule out pathology predisposing to impaired mobility/ADLs as per note. 2 days ago, patient sustained inadvertent head trauma while laying down for outpatient MRI LS spine at [facility]. Patient stated he was fine and did not need to see a doctor as per tech note. MRI LS spine showed multilevel/multifactorial degenerative changes of the lumbar spine with varying degrees of spinal canal and neuroforaminal stenosis. Incompletely visualized large renal cystic lesions. Dry cough symptoms for about few days as per patient. Shortness of breath without chest pain. Patient not sure about weight gain. Patient not sure about COVID-19 vaccination status. Patient became unresponsive at home. O2 sats noted to be 44%. Patient placed on CPAP by EMS. Patient subsequently woke up. Brought to the ER for evaluation Initial SBP at the ER 170s. Zosyn given at the ER for possible pneumonia. Medical Historyas above Surgical history : Tonsillectomy Family History : Heart disease, stroke Personal/Social history : Non-smoker, no EtOH intake, disabled Allergies Allergy/AdvReac Type Severity Reaction Status Date / Time minoxidil Allergy Intermediate RASH Verified 04/05/22 23:55 venlafaxine Allergy Intermediate HTN, SHAKEY Verified 04/05/22 23:55 amlodipine Allergy Unknown Unknown Verified 04/05/22 23:55 clonidine AdvReac Unknown INTOLERANT Verified 04/05/22 23:55 Home Medications Medication Instructions Recorded Confirmed Type allopurinol 300 mg tablet 300 mg PO HS 11/30/18 04/05/22 History aspirin 81 mg tablet,delayed 81 mg PO QAM 11/30/18 04/05/22 History release ferrous sulfate 325 mg (65 mg 325 mg PO DAILY 11/30/18 04/05/22 History iron) tablet (iron) paroxetine HCl 40 mg tablet 40 mg PO QAM 11/30/18 04/05/22 History trazodone 50 mg tablet 50 mg PO HS 12/31/18 04/05/22 History metoprolol succinate 100 mg 100 mg PO DAILY 02/28/19 04/05/22 History tablet,extended release 24 hr torsemide 20 mg tablet 20 mg PO QAM 02/28/19 04/05/22 History insulin detemir U-100 100 unit/mL 28 unit SUBCUT HS 12/05/19 04/05/22 History (3 mL) subcutaneous pen (Levemir FlexTouch U-100 Insulin) atorvastatin 40 mg tablet 40 mg PO HS 10/26/20 04/05/22 History cholecalciferol (vitamin D3) 25 25 mcg PO DAILY 04/05/22 04/05/22 History mcg (1,000 unit) tablet (Vitamin D3) lisinopril 5 mg tablet 5 mg PO QAM 04/05/22 04/05/22 History Past Med/Surg History Medical History (Updated 04/06/22 @ 02:38 by Daron Espinosa MD) Anxiety CKD (chronic kidney disease) stage 3, GFR 30-59 ml/min COPD (chronic obstructive pulmonary disease) Depression Diabetes mellitus type 2 in obese Diastolic heart failure Dyslipidemia Essential hypertension Essential tremor GERD (gastroesophageal reflux disease) GI bleed (03/14/14) Gout Obstructive sleep apnea on CPAP Restless leg syndrome Restrictive airway disease Surgical History H/O colonoscopy " 04/09/2014- adenomatous & TVA polyps, diverticulosis 04/29/2015- normal " H/O colonoscopy with polypectomy "2012 - polyps, adenomatous" H/O esophagogastroduodenoscopy " 03/15/2014- mild-mod inflammation " History of pericardiotomy S/P tonsillectomy and adenoidectomy Family History Other Coronary heart disease Stroke Social History Smoking Status: Never smoker Second Hand Exposure: No; Hx Alcohol Use: Yes Alcohol type: beer Hx Substance Use: No Preferred Language: Peruvian Communication Ability: Effective Visual Impairment: Limited Customer Consulting Manager Required: No Beliefs That Will Affect Care: None marital status: Current Living Situation: Spouse Other Information That Helps Us Care for You: No Feels Safe at Home: Yes Safety Concerns: Feels Safe At This Time Assistive Devices: Oxygen - Continuous and Walker Review of Systems Review of Systems: Could not be reliably obtained secondary to disorientation Physical Exam Physical Exam: GENERAL: Morbidly obese, disoriented, minimal respiratory distress, unkempt SKIN: pallor, warm HEENT: Pale palpebral conjunctivae, no ptosis, dry buccal mucosa, BiPAP in place NECK : Supple, short, no tenderness CHEST : Decreased breath sounds, occasional expiratory wheezes, no tenderness HEART : RRR, no obvious murmurs ABDOMEN: distention, nontender EXTREMITIES : minimal LE swelling, no tenderness, no other conspicuous deformities noted NEUROLOGIC : Disoriented, no facial asymmetry, mild hearing impairment, gait and stance not assessed Results & Data Results & Data ([facility]) Vital Signs (Past 12 Hours) Vital Signs Temp Pulse Pulse Resp BP Pulse Ox 04/06/22 00:30 82 23 143/82 H 100 04/06/22 00:27 83 82 24 99 04/06/22 00:00 90 29 H 140/87 99 04/05/22 23:30 94 H 29 H 139/89 97 04/05/22 23:28 93 H 27 H 137/83 98 04/05/22 23:06 36.6 C 96 H 28 H 170/107 H 96 04/05/22 23:05 95 H 28 H 97 Laboratory Results Laboratory Results WBC 18.88 K/uL (4.8-10.8) H 04/05/22 23:28 RBC 5.36 M/uL (4.7-6.1) 04/05/22 23:28 Hgb 14.7 g/dL (14.0-18.0) 04/05/22 23:28 Hct 47.5 % (42-52) 04/05/22 23:28 MCV 88.6 fL (80-100) 04/05/22 23:28 MCH 27.4 pg (25-34) 04/05/22 23:28 MCHC 30.9 g/dL (32-36) L 04/05/22 23:28 RDW Std Deviation 53.4 fL (36.4-46.3) H 04/05/22 23:28 RDW Coeff of Alfonso 16.8 % (11.5-14.5) H 04/05/22 23:28 Plt Count 373 K/uL (130-400) 04/05/22 23:28 MPV 9.2 fL (7.4-10.4) 04/05/22 23:28 Immature Gran % (Auto) 0.8 % 04/05/22 23: Neut % (Auto) 81.7 % 04/05/22 23: Lymph % (Auto) 8.8 % 04/05/22 23: [place] % (Auto) 5.1 % 04/05/22 23: Eos % (Auto) 3.4 % 04/05/22 23: Baso % (Auto) 0.2 % 04/05/22 23: Neut # (Auto) 15.42 K/uL (1.4-6.5) H 04/05/22 23: Lymph # (Auto) 1.66 K/uL (1.2-3.4) 04/05/22: [place] # (Auto) 0.97 K/uL (0.11-0.59) H 04/05/22 23: Eos # (Auto) 0.65 K/uL (0-0.5) H 04/05/22: Baso # (Auto) 0.03 K/uL (0-0.2) 04/05/22 23: Immature Gran # (Auto) 0.15 K/uL (0.00-0.02) H 04/05/22 23: PT 10.8 Seconds (9.0-12.0) 04/05/22: INR 1.0 (0.9-1.1) 04/05/22: VBG pH 7.27 (7.36-7.41) L 04/05/22: VBG pCO2 70 mmHg (38-50) H 04/05/22: VBG pO2 34 mmHg 04/05/22 23: VBG HCO3 32 mmol/L 04/05/22: VBG O2 Saturation < 60.0 % 04/05/22: VBG Base Excess 2.3 mEq/L 04/05/22 23: Barometric Pressure 731.7 mm/Hg 04/05/22 23: Sodium 136 mmol/L (136-145) 04/05/22: Potassium 4.6 mmol/L (3.5-5.1) 04/05/22: Chloride 96 mmol/L (98-107) L 04/05/22:28 Carbon Dioxide 32 mmol/L (21-32) 04/05/22 23:28 Anion Gap 8 (3-11) 04/05/22 23:28 BUN 23 mg/dl (6-23) 04/05/22 23:28 Creatinine 1.47 mg/dl (0.6-1.4) H 04/05/22 23:28 Est Cr Clr Drug Dosing 52.8 ml/min 04/05/22 23:28 Est GFR ( Amer) 53.3 ml/min 04/05/22 23:28 Est GFR (Non-Af Amer) 46.0 ml/min 04/05/22 23:28 BUN/Creatinine Ratio 15.6 (10-20) 04/05/22 23:28 Glucose 168 mg/dl (70-99(Fasting)) H 04/05/22 23:28 Lactate 2.0 mmol/L (0.4-2.0) 04/05/22 23: Calcium 8.4 mg/dl (8.5-10.1) L 04/05/22 23: Magnesium 1.7 mg/dl (1.7-2.4) 04/05/22 23:28 Total Bilirubin 0.8 mg/dl (0.2-1.0) 04/05/22 23:28 Direct Bilirubin 0.1 mg/dl (0-0.2) 04/05/22 23:28 AST 14 U/L (13-39) 04/05/22 23:28 ALT 11 U/L (7-52) 04/05/22 23:28 Alkaline Phosphatase 117 U/L (34-104) H 04/05/22 23:28 Troponin I High Sens 13.6 pg/ml (0-20) 04/05/22 23:28 B-Natriuretic Peptide 343 pg/ml (0-100) H 04/05/22 23:28 Total Protein 7.6 gm/dl (6.0-8.3) 04/05/22 23:28 Albumin 3.9 gm/dl (3.4-5.0) 04/05/22 23:28 Lipase 47 U/L (11-82) 04/05/22 23:28 SARS-CoV-2 (PCR) NEGATIVE (Negative) 04/05/22 23:09 Influenza Type A (PCR) Negative (Neg) 04/05/22 23:09 Influenza Type B (PCR) Negative (Neg) 04/05/22 23:09 RSV (RT-PCR) Negative (Neg) 04/05/22 23:[address] head:No acute intracranial abnormality. CT chest: 1. No pulmonary emboli identified. 2. Cardiomegaly with small to moderate layering pleural effusions and mild bibasilar predominant atelectasis. 3. Interstitial pulmonary edema with bilateral groundglass densities suggestive of alveolar pulmonary edema. An infectious or inflammatory pneumonitis could appear similarly however is considered less likely. 4. Splenomegaly. EKG as per my interpretation: Rate 95, NSR, normal axis, T wave abnormalities inferior leads, multiple artifacts
[2022-04-06] MEDS ORDERED: ALBUMIN 25% 100 mL 25 GM/100 ML VIAL IV STA (01:08)
[2022-04-06] MEDS ORDERED: INSULIN GLARGINE SOLOSTAR 100 UNITS/ML 3 ML PEN SC STA (01:11)
[2022-04-06] MEDS ORDERED: OPTIRAY 320 125ml IV ONE (02:24)
[2022-04-06] MEDS ORDERED: CARBOHYDRATES FOR HYPOGLYCEMIA PO PRN (02:47)
[2022-04-06] MEDS ORDERED: ACETAMINOPHEN 325 MG TAB PO PRN (02:47)
[2022-04-06] MEDS ORDERED: GLUCAGON FOR INJ 1 MG VIAL SQ PRN (02:47)
[2022-04-06] MEDS ORDERED: NITROGLYCERIN SL 0.4 MG/TAB TAB SL PRN (02:47)
[2022-04-06] MEDS ORDERED: DEXTROSE 50% 50 ML SYRINGE IV PRN (02:47)
[2022-04-06] MEDS ORDERED: GLUCOSE 10 TABS/TUBE PO PRN (02:47)
[2022-04-06] MEDS ORDERED: GLUCOSE 40% GEL 15 GM TUBE PO PRN (02:47)
[2022-04-06] MEDS: INSULIN ASPART PER UNIT SC SCH ×5 (03:01→21:22)
[2022-04-06 03:07] LABS: Thyroid Stimulating Hormone 6.262 uIu/ml (0.300-4.500)
[2022-04-06 03:17] LABS: Base Excess ABG 2.9 mEq/L (-9-1.8); Basophils # (auto) 0.01 K/uL (0-0.2); Basophils % (auto) 0.1 %; Eosinophils # (auto) 0.12 K/uL (0-0.5); Eosinophils % (auto) 0.9 %; HCO3 ABG 29 mmol/L (19-24); Hematocrit (blood only) 42.9 % (42-52); Hemoglobin 13.7 g/dL (14.0-18.0); Immature Granulocytes # (auto) 0.08 K/uL (0.00-0.02); Immature Granulocytes % (auto) 0.6 %; Lymphocytes # (auto) 0.72 K/uL (1.2-3.4); Lymphocytes % (auto) 5.1 %; Mean Corpuscular Hemoglobin 27.7 pg (25-34); Mean Corpuscular Hgb Conc 31.9 g/dL (32-36); Mean Corpuscular Volume 86.7 fL (80-100); Mean Platelet Volume 8.5 fL (7.4-10.4); Monocytes % (auto) 2.1 %; Neutrophils # (auto) 12.76 K/uL (1.4-6.5); Neutrophils % (auto) 91.2 %; PCO2 ABG 48 mmHg (35-46); PO2 ABG 77 mmHg (80-95); Platelet Count 273 K/uL (130-400); RDW Coefficient of Variation 16.6 % (11.5-14.5); RDW Standard Deviation 52.8 fL (36.4-46.3); Red Blood Count 4.95 M/uL (4.7-6.1); White Blood Count 13.99 K/uL (4.8-10.8); pH ABG 7.39 (7.35-7.45)
[2022-04-06 03:19] LABS: Allen Test Pos (Pos)
[2022-04-06 03:31] LABS: BUN Creatinine Ratio 18.8 (10-20); Creatinine Clr Calc Pharmacy 60.7 ml/min; Est GFR (Non-African American) 54.4 ml/min; Potassium 4.7 mmol/L (3.5-5.1)
[2022-04-06 03:51] LABS: T4 Free Thyroxine 0.81 ng/dl (0.61-1.60)
[2022-04-06] MEDS: HEPARIN SOD 5,000 UNIT/0.5 ML VIAL SQ SCH ×3 (06:16→21:25)
--- NOTE | 2022-04-06 06:27 | CT Scan Report ---
CT head/brain wo con CLINICAL HISTORY: 77 years-old Male with ams. Acutely altered mental status TECHNIQUE: Multiple axial CT images of the head were obtained without contrast. A dose lowering tech nique was utilized adhering to the principles of ALARA. CT DOSE: 853.38 mGy.cm COMPARISON: Head CT 10/25/2020 FINDINGS: No acute intracranial hemorrhage, midline shift, intra-axial mass, hydrocephalus, territorial ischemi a or abnormal extra-axial collection. Age-related involutional changes with ex vacuo ventriculomegaly . White matter hypodensities are suggestive of chronic microvascular ischemic disease. Chronic lacuna r infarct of the left lentiform nucleus. Cerebral vascular calcifications. 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 The calvarium is intact. The paranasal sinuses, mastoid air cells, and middle ear cavities are clear . IMPRESSION: No acute intracranial abnormality. ACT 112: Negative or not required by law. The above report was generated using voice recognition software. It may contain grammatical, syntax o r spelling errors. Electronically signed by: Jim Ortega M.D. 04/06/2022 6:25 AM
--- NOTE | 2022-04-06 06:40 | CT Scan Report ---
CT angio chest PE protocol CT DOSE: 1085.26 mGy.cm HISTORY: 77 years-old Male with sob. Acute shortness of breath TECHNIQUE: Multiple CTA images of the chest were obtained after the intravenous administration of 120 ml Optiray. Coronal and sagittal MIPS were obtained from the axial data set and were submitted for review. All measurements were obtained according to NASCET criteria. A dose lowering technique was u tilized adhering to the principles of ALARA. COMPARISON: Chest CT 02/28/2019 FINDINGS: CTA: Moderate cardiomegaly. Mediastinal lipomatosis. No pericardial effusion. Extensive coronary artery ca lcifications. Atherosclerosis of the thoracic aorta without aneurysm. Unremarkable visualized pulmona ry artery, suboptimally evaluated secondary to respiratory motion artifact. No pulmonary emboli are i dentified. CT CHEST: 1.7 cm exophytic nodule of the posterior left thyroid. 1.8 x 1.2 cm lymph node within the right trach eoesophageal recess on image 217 series 4 is similar to mildly decreased in size from the prior study . Calcified left hilar lymph nodes. Small to moderate layering pleural effusions. No pneumothorax. In tralobular septal thickening is noted in conjunction with patchy bilateral groundglass opacities. Dep endent bibasilar consolidation with mild linear consolidation of the lingula suggestive of atelectasi s. There are no suspicious pulmonary nodules or masses identified. There is no acute process of the imaged upper abdomen. The spleen is enlarged. Partially imaged 8.6 c m cyst of the superior pole right kidney. Unremarkable soft tissues. Gynecomastia. Indeterminate justin pherally sclerotic lucent lesion is noted involving the anterior right sixth rib which is unchanged a nd likely benign. IMPRESSION: 1. No pulmonary emboli identified. 2. Cardiomegaly with small to moderate layering pleural effusions and mild bibasilar predominant atel ectasis. 3. Interstitial pulmonary edema with bilateral groundglass densities suggestive of alveolar pulmonary edema. An infectious or inflammatory pneumonitis could appear similarly however is considered less l ikely. 4. Splenomegaly. ACT 112: Negative or not required by law. The above report was generated using voice recognition software. It may contain grammatical, syntax o r spelling errors. Electronically signed by: Jim Ortega M.D. 04/06/2022 6:38 AM
[2022-04-06] MEDS ORDERED: METOPROLOL TARTRATE 1 MG/ML VIAL IV STA (06:47)
[2022-04-06] MEDS ORDERED: XOPENEX/ATROVENT 1.25mg/0.5MG NEB COMBO NEB SCH (07:00)
[2022-04-06] MEDS: IPRATROPIUM BROMIDE NEB SOLN 0.02% 2.5 ML VIAL INH SCH ×3 (07:03→19:24)
[2022-04-06] MEDS: LEVALBUTEROL 1.25MG/0.5ML NEB INH SCH ×3 (07:03→19:25)
--- NOTE | 2022-04-06 07:31 | XRay Report ---
XR chest 1V portable CLINICAL HISTORY: shob TECHNIQUE: Single frontal radiograph of the chest was obtained. Comparison: Comparison is made to chest radiograph 04/19/2021 FINDINGS: No lines and tubes are seen. Cardiomegaly is noted. Bilateral lower lung predominant airspace opaciti es are seen. Pulmonary vascular congestion is seen. There are are small bilateral pleural effusions, left greater than right. IMPRESSION: 1. Bilateral lower lung predominant airspace opacities which may represent atelectasis, pneumonia, a nd/or aspiration. 2. Mild pulmonary edema. 3. Small bilateral pleural effusions. ACT 112: Negative or not required by law. Electronically signed by: Abdirashid Nelson M.D. 04/06/2022 7:29 AM
[2022-04-06] MEDS: ASPIRIN 81 MG ECTAB PO SCH (07:42)
[2022-04-06] MEDS: PARoxetine HCL 20 MG TAB PO SCH (07:43)
[2022-04-06] MEDS ORDERED: Nursing to Pharmacy Communication SCH ×2 (08:15→14:00)
[2022-04-06] MEDS ORDERED: METOPROLOL SUCC 50MG EXT REL TAB PO SCH (09:00)
[2022-04-06] MEDS: PIPERACILLIN/TAZOBACTAM 4.5 GM in DEXTROSE 5% 100 ML IV SCH ×2 (09:46→16:17)
[2022-04-06] MEDS: FUROSEMIDE 40 MG/4 ML VIAL IV SCH ×2 (09:46→20:04)
--- NOTE | 2022-04-06 10:43 | Cardiology Consultation ---
Date of Consultation April 06, 2022 Assessment & Plan (1) Chronic heart failure with preserved ejection fraction (HFpEF): (2) Chronic right-sided congestive heart failure: (3) Hypertension: (4) CAD (coronary artery disease): (5) Acute hypoxemic respiratory failure: (6) COPD (chronic obstructive pulmonary disease): (7) Encephalopathy: 77 year old male- presented to ED due to acute hypoxic respirtory failure. Patient appears euvolemic on exam. Weight is stable. CXR showing ?PNA vs acute CHF. Recent events seem to be more pulmonary related rather than a CHF exacerbation. Patient hypertensive since admission- 1" nitro past q6 hours ordered. Was on lisinopril 5 mg daily as an outpatient. Restart Lisinopril 5 mg daily. Renal function stable. Sodium low. Currently on Lasix 40 mg BID. Continue today- will plan on transitioning to PO tomorrow. Home dose of diuretics normally Torsemide 20 mg daily PAP with O2 supplement qHS with O2 use during day as ordered. Echo showed LVEF 65-70%, grade II diastolic dysfunction, mild inferior wall hypokinesis, Mild aortic sclerosis- no stenosis. Mild MR and TR. Presumed CAD, last echo 03/2019- There is a moderate sized septal, inferior, and posterior wall motion abnormality with akinesis of the segments. Given lack of angina symptoms will continue to medically manage. Case discussed with Dr. Connor- will follow. Supervising Physician Co-Signing Physician Notes Patient was seen and personally examined. Admitted with hypoxic respiratory failure, declining mentation and mobility at home. Findings reflect significant hypertension since admission. No acute EKG changes or changes in echocardiogram Being treated for diastolic heart failure though exam not consistent with volume overload, no edema no jugular venous distention. We will continue for 24 hours and reassess Topical nitrates added for blood pressure control as above History of Present Illness Reason for Consultation: Acute on chronic HFpEF Requesting Physician: Al Hospitalist Attending Physician: Artis Vivas MD History of Present Illness 77 year old poor historian. Inpatient and outpatient chart reviewed. Limited history from patient secondary to disorientation. Lives at home with his , Kathy. Patient initially presented to the hospital due to frequent falls and lethargy. Sleeping >10 hours per day. Last week patient fell getting an outpatient MRI of the spine, refused medical care. He then went home and became unresponsive. EMS was called and o2 sats were in the mid 40s%. Patient was placed on CPAP by EMS and he then awoke spontaneously. Patient was hypertensive with SBP in the 170s. He is on lisinopril as an outpatient, started 03/13 by PCP CXR showed a left lower lobe effusion with BL infiltrates- treated with Zosyn in the ED for possible PNA then switched to Doxy. Also given IV diuretics due to CHF component. CBC showed a WBC count of 18.88>>13.99 Upon entrance into the room patient resting comfortably in bed. Able to tell me where he was at, but unsure of date/time. Denies any chest pain. Notes shortness of breath- but at his baseline. +Orthopnea with HOB at <20%. No PND or lower extremity edema. Denies bloating. Good appetite. Echo 04/06: LVEF 65-70%, grade II diastolic dysfunction, mild inferior wall hypokinesis, Mild aortic sclerosis- no stenosis. Mild MR and TR. Tele: SR 70-80s I&O: +530 mL Weight: 119.3 kg >> 119.3 kg Past medical History: Chronic Right Heart failure Chronic HFpEF Presumed CAD, medically managed HTN HLD Obseity COPD, O2 dependent Severe RENE, on PAP and O2 qHS Allergies Allergy/AdvReac Type Severity Reaction Status Date / Time minoxidil Allergy Intermediate RASH Verified 04/05/22 23:55 venlafaxine Allergy Intermediate HTN, SHAKEY Verified 04/05/22 23:55 amlodipine Allergy Unknown Unknown Verified 04/05/22 23:55 clonidine AdvReac Unknown INTOLERANT Verified 04/05/22 23:55 Home Medications Medication Instructions Recorded Confirmed Type allopurinol 300 mg tablet 300 mg PO HS 11/30/18 04/05/22 History aspirin 81 mg tablet,delayed 81 mg PO QAM 11/30/18 04/05/22 History release ferrous sulfate 325 mg (65 mg 325 mg PO DAILY 11/30/18 04/05/22 History iron) tablet (iron) paroxetine HCl 40 mg tablet 40 mg PO QAM 11/30/18 04/05/22 History trazodone 50 mg tablet 50 mg PO HS 12/31/18 04/05/22 History metoprolol succinate 100 mg 100 mg PO DAILY 02/28/19 04/05/22 History tablet,extended release 24 hr torsemide 20 mg tablet 20 mg PO QAM 02/28/19 04/05/22 History insulin detemir U-100 100 unit/mL 28 unit SUBCUT HS 12/05/19 04/05/22 History (3 mL) subcutaneous pen (Levemir FlexTouch U-100 Insulin) atorvastatin 40 mg tablet 40 mg PO HS 10/26/20 04/05/22 History cholecalciferol (vitamin D3) 25 25 mcg PO DAILY 04/05/22 04/05/22 History mcg (1,000 unit) tablet (Vitamin D3) lisinopril 5 mg tablet 5 mg PO QAM 04/05/22 04/05/22 History Patient History Medical History (Updated 04/06/22 @ 12:39 by Ramez Gonzalez MD) Anxiety CKD (chronic kidney disease) stage 3, GFR 30-59 ml/min COPD (chronic obstructive pulmonary disease) Depression Diabetes mellitus type 2 in obese Diastolic heart failure Dyslipidemia Essential hypertension Essential tremor GERD (gastroesophageal reflux disease) GI bleed (03/14/14) Gout Obstructive sleep apnea on CPAP Restless leg syndrome Restrictive airway disease Surgical History H/O colonoscopy " 04/09/2014- adenomatous & TVA polyps, diverticulosis 04/29/2015- normal " H/O colonoscopy with polypectomy "2012 - polyps, adenomatous" H/O esophagogastroduodenoscopy " 03/15/2014- mild-mod inflammation " History of pericardiotomy S/P tonsillectomy and adenoidectomy Family History Other Coronary heart disease Stroke Social History Smoking Status: Never smoker Second Hand Exposure: No; Hx Alcohol Use: Yes Alcohol type: beer Hx Substance Use: No Preferred Language: Dutch Communication Ability: Effective Visual Impairment: Limited Room Clerk Required: No Beliefs That Will Affect Care: None marital status: Current Living Situation: Spouse Other Information That Helps Us Care for You: No Feels Safe at Home: Yes Safety Concerns: Feels Safe At This Time Assistive Devices: Oxygen - Continuous and Walker Review of Systems Review of Systems: All systems reviewed & are unremarkable except as noted in HPI & below Limited ROS due to patient being a poor historian Physical Exam Constitutional: well nourished and + obese; no acute distress Eyes: PERRL, conjunctivae normal, anicteric sclerae Neck: normal visual inspection Respiratory: normal respiratory effort, + cough and able to speak in complete sentences Auscultation: + rales (L>R); no rhonchi and no wheezes Cardiovascular: Rate/Rhythm: regular rate and regular rhythm Heart Sounds: normal S1 and normal S2; no murmur Vessels: normal peripheral pulses; no JVD (difficult to assess due to body habitis) Gastrointestinal (Abdomen): Percussion/Palpation: + abdomen firm; abdomen nontender Skin: no rashes, warm and dry Psychiatric: Orientation: alert, oriented to person, oriented to place and cooperative Affect: euthymic affect Results & Data ([facility]) Vital Signs (Past 12 Hours) Vital Signs Temp Pulse Pulse Resp BP BP Pulse Ox 04/06/22 07:57 36.7 C 87 23 174/106 H 95 04/06/22 07:03 83 22 96 04/06/22 02:38 84 04/06/22 02:30 36.5 C 84 18 188/90 H 98 04/06/22 02:22 27 H 97 04/06/22 01:30 75 22 133/83 97 04/06/22 01:00 78 23 140/77 96 04/06/22 00:30 82 23 143/82 H 100 04/06/22 00:27 83 82 24 99 04/06/22 00:00 90 29 H 140/87 99 04/05/22 23:30 94 H 29 H 139/89 97 04/05/22 23:28 93 H 27 H 137/83 98 04/05/22 23:06 36.6 C 96 H 28 H 170/107 H 96 04/05/22 23:05 95 H 28 H 97 Laboratory Results Cardiac Enzymes 04/05/22 04/05/22 Range/Units 23:28 23:28 AST 14 (13-39) U/L Troponin I High Sens 13.6 (0-20) pg/ml B-Natriuretic Peptide 343 H (0-100) pg/ml Coagulation 04/05/22 04/05/22 Range/Units 23:28 23:28 PT 10.8 (9.0-12.0) Seconds B-Natriuretic Peptide 343 H (0-100) pg/ml CBC 04/05/22 04/06/22 Range/Units 23:28 03:03 WBC 18.88 H 13.99 H (4.8-10.8) K/uL RBC 5.36 4.95 (4.7-6.1) M/uL Hgb 14.7 13.7 L (14.0-18.0) g/dL Hct 47.5 42.9 (42-52) % Plt Count 373 273 (130-400) K/uL Neut # (Auto) 15.42 H 12.76 H (1.4-6.5) K/uL Lymph # (Auto) 1.66 0.72 L (1.2-3.4) K/uL [place] # (Auto) 0.97 H 0.30 (0.11-0.59) K/uL Eos # (Auto) 0.65 H 0.12 (0-0.5) K/uL Baso # (Auto) 0.03 0.01 (0-0.2) K/uL Comprehensive Metabolic Panel 04/05/22 04/06/22 Range/Units 23:28 03:03 Sodium 136 133 L (136-145) mmol/L Potassium 4.6 4.7 (3.5-5.1) mmol/L Chloride 96 L 98 (98-107) mmol/L Carbon Dioxide 32 26 (21-32) mmol/L BUN 23 24 H (6-23) mg/dl Creatinine 1.47 H 1.28 (0.6-1.4) mg/dl Glucose 168 H 178 H (70-99(Fasting)) mg/dl Calcium 8.4 L 9.0 (8.5-10.1) mg/dl Direct Bilirubin 0.1 (0-0.2) mg/dl AST 14 (13-39) U/L ALT 11 (7-52) U/L Alkaline Phosphatase 117 H (34-104) U/L Total Protein 7.6 (6.0-8.3) gm/dl Albumin 3.9 (3.4-5.0) gm/dl Intake and Output 04/05/22 04/06/22 04/06/22 22:59 06:59 14:59 Intake Total 530 / 530 Balance 530 / 530 Intake: IV 530 / 530 ALBUMIN 25% 100 mL 25 gm In 100 100 / 100 ml @ 50 mls/hr IV ONE STA Rx#: [id number] Doxycycline Hyclate 100 mg In 110 / 110 Dextrose 5% 100 ml @ 50 mls/hr IV NOW STA Rx#:[id number] Magnesium Sulfate / D5w 1 gm In 200 / 200 100 ml @ 50 mls/hr IV Q2H GONZALO Rx#:[id number] Piperacillin/Tazobactam 4.5 gm 120 / 120 In 120 ml @ 240 mls/hr IV NOW ONE Rx#:[id number] Other: Other Intake Source NPO # Unmeasured Voids 2 1 Weight 119.3 kg Weight Measurement Method Built in [facility]
--- NOTE | 2022-04-06 11:20 | Hospitalist Progress Note ---
Date of Service April 06, 2022 Assessment & Plan Admission and Anticipated Discharge Date Admission Date: April 06, 2022 Subjective Patient admitted earlier today. Patient was seen and examined in his room. Chart was reviewed. Brought in by EMS from home after he fell and upon EMS arrival he was noted to be hypoxic down to the 40s and in respiratory distress. He was bagged in the field and placed on CPAP then placed on BIPAP here overnight and this morning was weaned to 2L NC. He was noted to be encephalopathic with CO2 retention on admission. Patient himself with no complaints and is a very poor historian. Inquiring when he can go home and denies having any medical history. 1. Acute on chronic hypoxic, Hypercapnic respiratory failure -Presumably due to COPD exacerbation (although patient denies a history of COPD) -Will empirically treat for COPD flare, IV steroids, nebulizers -Will ask for Pulmonology consult 2. Acute metabolic encephalopathy -due to hypercapnia, improved 3. Acute on chronic diastolic CHF -CTA chest shows bilateral pleural effusions and interstitial edema -Patient hypervolemic on exam -Start lasix 40mg IV BID -Check TTE -Cardiology consult 4. Sepsis -Present on admission with hypoxia, leukocytosis -s/p Zosyn in ER. Placed on Doxycycline by admitting provider. Will continue zosyn for now pending blood cultures. Check procalcitonin with AM labs Full note to follow tomorrow Results & Data Results & Data ([facility]) Vital Signs (Past 12 Hours) Vital Signs Temp Pulse Pulse Resp BP BP BP 04/06/22 10:00 160/94 H 04/06/22 09:55 213/124 H 195/112 H 04/06/22 07:57 36.7 C 87 23 174/106 H 04/06/22 07:03 83 22 04/06/22 02:38 84 04/06/22 02:30 36.5 C 84 18 188/90 H 04/06/22 02:22 27 H 04/06/22 01:30 75 22 133/83 04/06/22 01:00 78 23 140/77 04/06/22 00:30 82 23 143/82 H 04/06/22 00:27 83 82 24 04/06/22 00:00 90 29 H 140/87 04/05/22 23:30 94 H 29 H 139/89 04/05/22 23:28 93 H 27 H 137/83 Pulse Ox 04/06/22 10:00 04/06/22 09:55 04/06/22 07:57 95 04/06/22 07:03 96 04/06/22 02:38 04/06/22 02:30 98 04/06/22 02:22 97 04/06/22 01:30 97 04/06/22 01:00 96 04/06/22 00:30 100 04/06/22 00:27 99 04/06/22 00:00 99 04/05/22 23:30 97 04/05/22 23:28 98
[2022-04-06] MEDS: NITROGLYCERIN 2% OINTMENT 30GM TUBE EXT SCH ×3 (12:07→21:31)
[2022-04-06] MEDS: lisinopril 5 MG TAB PO SCH (12:07)
[2022-04-06] MEDS: FERROUS SULFATE 325 MG TAB PO SCH (12:07)
--- NOTE | 2022-04-06 12:46 | Pulmonary Consultation ---
Date of Consultation April 06, 2022 Assessment & Plan (1) Acute hypoxemic respiratory failure: (2) Encephalopathy: (3) Hypercapnic respiratory failure: Impression: 77-year-old male with chronic hypoxemic respiratory failure admitted with hypercarbic respiratory failure. He has a history of sleep disordered breathing but is a non-smoker. This would be somewhat unusual for the patient to have significant COPD. I cannot find any PFTs in our system on this patient. Nevertheless he is improved with empiric CPAP/BiPAP. CT scan showed evidence of fluid overload and his echocardiogram had multiple regional wall motion abnormalities. Cardiology is elected to manage him conservatively and medically. Last PFTs we have in our system are from 2006 which demonstrated restrictive physiology. Recommendations: 1. Hypercarbic respiratory failure: Continue empiric CPAP/BiPAP and on a nightl y basis as well as whenever the patient is sleeping. He should be followed in the outpatient setting with review of compliance data. Ideally would like to review his prior sleep studies if possible. Consideration for repeating his studies to ensure adequacy of current therapy may be appropriate. Avoid use of any potentially respiratory suppressing medications. 2. Restrictive PFTs: Recommend repeating complete pulmonary function tests when the patient is clinically stable. No evidence of interstitial lung disease identified on his CT scan. May be consistent with the patient's body habitus 3. Hypoxemia: Secondary to fluid overload effusions and potential atelectasis causing VQ mismatch. Continue oxygen titrated to maintain saturations 88 to 90%. Would not try and target higher oxygen saturation. 4. Supervised weight loss is recommended as an adjuvant therapy for the patient's sleep disordered breathing. 5. Management of the patient's underlying cardiac issues per cardiology. 6. Bilateral effusions: Continue diuresis and blood pressure control given his grade 2 diastolic dysfunction. 7. Would recommend PT and OT evaluations. It appears the patient is no longer able to be cared for at home and consideration for placement may be appropriate. Thanks for the opportunity participating in the care of this patient. Feel free to contact us if we can be of additional assistance. History of Present Illness Attending Physician: Artis Vivas MD History of Present Illness Asked by hospitalist to evaluate this patient admitted with hypoxemic hypercarbic respiratory failure. History is obtained from discussion with the patient and reviewed electronic medical record. Patient is a 77-year-old male with a history of chronic hypoxemic respiratory failure. He is on oxygen chronically at 2 L/min. He is a lifelong non-smoker. He is never been diagnosed with COPD previously. He does have a history of sleep disordered breathing and uses CPAP at home on a nightly basis. He believes his sleep study was performed through [facility]. The patient was brought to the emergency room early this morning with altered mental status and failure to thrive at home. Patient apparently has had excessive somnolence and frequent falls. There was some question of pursuing outpatient placement. Patient did complain of some shortness of breath as well as dry cough. He had low oxygen levels and became somewhat unresponsive. He was placed on CPAP with improvement in his mental status. He is found to be hypercarbic on presentation and treated with BiPAP overnight. This morning he is awake alert and conversant. He is not describing any new or progressive respiratory issues. He has no new medications that he is aware of. He has not had any significant weight gain that he is aware of. Allergies Allergy/AdvReac Type Severity Reaction Status Date / Time minoxidil Allergy Intermediate RASH Verified 04/05/22 23:55 venlafaxine Allergy Intermediate HTN, SHAKEY Verified 04/05/22 23:55 amlodipine Allergy Unknown Unknown Verified 04/05/22 23:55 clonidine AdvReac Unknown INTOLERANT Verified 04/05/22 23:55 Home Medications Medication Instructions Recorded Confirmed Type allopurinol 300 mg tablet 300 mg PO HS 11/30/18 04/05/22 History aspirin 81 mg tablet,delayed 81 mg PO QAM 11/30/18 04/05/22 History release ferrous sulfate 325 mg (65 mg 325 mg PO DAILY 11/30/18 04/05/22 History iron) tablet (iron) paroxetine HCl 40 mg tablet 40 mg PO QAM 11/30/18 04/05/22 History trazodone 50 mg tablet 50 mg PO HS 12/31/18 04/05/22 History metoprolol succinate 100 mg 100 mg PO DAILY 02/28/19 04/05/22 History tablet,extended release 24 hr torsemide 20 mg tablet 20 mg PO QAM 02/28/19 04/05/22 History insulin detemir U-100 100 unit/mL 28 unit SUBCUT HS 12/05/19 04/05/22 History (3 mL) subcutaneous pen (Levemir FlexTouch U-100 Insulin) atorvastatin 40 mg tablet 40 mg PO HS 12/26/20 06/05/22 History cholecalciferol (vitamin D3) 25 25 mcg PO DAILY 04/05/22 04/05/22 History mcg (1,000 unit) tablet (Vitamin D3) lisinopril 5 mg tablet 5 mg PO QAM 04/05/22 04/05/22 History Patient History Medical History (Updated 04/06/22 @ 12:39 by Ramez Gonzalez MD) Anxiety CKD (chronic kidney disease) stage 3, GFR 30-59 ml/min COPD (chronic obstructive pulmonary disease) Depression Diabetes mellitus type 2 in obese Diastolic heart failure Dyslipidemia Essential hypertension Essential tremor GERD (gastroesophageal reflux disease) GI bleed (03/14/14) Gout Obstructive sleep apnea on CPAP Restless leg syndrome Restrictive airway disease Surgical History H/O colonoscopy " 04/09/2014- adenomatous & TVA polyps, diverticulosis 04/29/2015- normal " H/O colonoscopy with polypectomy "2012 - polyps, adenomatous" H/O esophagogastroduodenoscopy " 03/15/2014- mild-mod inflammation " History of pericardiotomy S/P tonsillectomy and adenoidectomy Family History Other Coronary heart disease Stroke Social History Smoking Status: Never smoker Second Hand Exposure: No; Hx Alcohol Use: Yes Alcohol type: beer Hx Substance Use: No Preferred Language: Nepali Communication Ability: Effective Visual Impairment: Limited Manager Of Maintenance Required: No Beliefs That Will Affect Care: None marital status: Current Living Situation: Spouse Other Information That Helps Us Care for You: No Feels Safe at Home: Yes Safety Concerns: Feels Safe At This Time Assistive Devices: Oxygen - Continuous and Walker Review of Systems Review of Systems: Please refer to admission H&P. No additions or deletions Physical Exam Constitutional: well nourished and + obese; no acute distress Eyes: PERRL, conjunctivae normal, anicteric sclerae Neck: normal visual inspection Respiratory: normal respiratory effort, + cough and able to speak in complete sentences Auscultation: + rales (L>R); no rhonchi and no wheezes Cardiovascular: Rate/Rhythm: regular rate and regular rhythm Heart Sounds: normal S1 and normal S2; no murmur Vessels: normal peripheral pulses; no JVD (difficult to assess due to body habitis) Gastrointestinal (Abdomen): Percussion/Palpation: + abdomen firm; abdomen nontender Skin: no rashes, warm and dry Psychiatric: Orientation: alert, oriented to person, oriented to place and cooperative Affect: euthymic affect Results & Data Results & Data ([facility]) Vital Signs (Past 12 Hours) Vital Signs Temp Pulse Pulse Resp BP BP BP 04/06/22 12:07 36.6 C 86 24 170/74 H 04/06/22 10:00 160/94 H 04/06/22 09:55 213/124 H 195/112 H 04/06/22 07:57 36.7 C 87 23 174/106 H 04/06/22 07:03 83 22 04/06/22 02:38 84 04/06/22 02:30 36.5 C 84 18 188/90 H 04/06/22 02:22 27 H 04/06/22 01:30 75 22 133/83 04/06/22 01:00 78 23 140/77 Pulse Ox 04/06/22 12:07 96 04/06/22 10:00 04/06/22 09:55 04/06/22 07:57 95 04/06/22 07:03 96 04/06/22 02:38 04/06/22 02:30 98 04/06/22 02:22 97 04/06/22 01:30 97 04/06/22 01:00 96 Critical Care Results & Data Vital Signs (Past 12 Hours) Vital Signs Temp Pulse Pulse Resp BP BP BP 04/06/22 12:07 36.6 C 86 24 170/74 H 04/06/22 10:00 160/94 H 04/06/22 09:55 213/124 H 195/112 H 04/06/22 08:00 85 04/06/22 07:57 36.7 C 87 23 174/106 H 04/06/22 07:03 83 22 04/06/22 02:38 84 04/06/22 02:30 36.5 C 84 18 188/90 H 04/06/22 02:22 27 H 04/06/22 01:30 75 22 133/83 04/06/22 01:00 78 23 140/77 Pulse Ox 04/06/22 12:07 96 04/06/22 10:00 04/06/22 09:55 04/06/22 08:00 04/06/22 07:57 95 04/06/22 07:03 96 04/06/22 02:38 04/06/22 02:30 98 04/06/22 02:22 97 04/06/22 01:30 97 04/06/22 01:00 96 Lab & Micro Results (Past 24 Hours) RBC 4.95 M/uL (4.7-6.1) 04/06/22 WBC 13.99 K/uL (4.8-10.8) H 04/06/22 Hgb 13.7 g/dL (14.0-18.0) L 04/06/22 Hct 42.9 % (42-52) 04/06/22 MCV 86.7 fL (80-100) 04/06/22 MCH 27.7 pg (25-34) 04/06/22 MCHC 31.9 g/dL (32-36) L 04/06/22 RDW Standard Deviation 52.8 fL (36.4-46.3) H 04/06/22 RDW Coefficient of Variation 16.6 % (11.5-14.5) H 04/06/22 Plt Count 273 K/uL (130-400) 04/06/22 MPV 8.5 fL (7.4-10.4) 04/06/22 Neutrophils (%) (Auto) 91.2 % 04/06/22 Lymphocytes (%) (Auto) 5.1 % 04/06/22 Monocytes # (Auto) 0.30 K/uL (0.11-0.59) 04/06/22 Eosinophils # (Auto) 0.12 K/uL (0-0.5) 04/06/22 Immature Granulocyte % (Auto) 0.6 % 04/06/22 Neutrophils # (Auto) 12.76 K/uL (1.4-6.5) H 04/06/22 Lymphocytes # (Auto) 0.72 K/uL (1.2-3.4) L 04/06/22 Monocytes # (Auto) 0.30 K/uL (0.11-0.59) 04/06/22 Eosinophils # (Auto) 0.12 K/uL (0-0.5) 04/06/22 Basophils # (Auto) 0.01 K/uL (0-0.2) 04/06/22 Immature Granulocyte # (Auto) 0.08 K/uL (0.00-0.02) H 04/06/22 Na 133 mmol/L (136-145) L 04/06/22 K 4.7 mmol/L (3.5-5.1) 04/06/22 Cl 98 mmol/L (98-107) 04/06/22 CO2 26 mmol/L (21-32) 04/06/22 Anion Gap 9 (3-11) 04/06/22 BUN 24 mg/dl (6-23) H 04/06/22 Creatinine 1.28 mg/dl (0.6-1.4) 04/06/22 Estimated GFR ( Amer) 63.0 ml/min 04/06/22 Estimated GFR (Non-Af Amer) 54.4 ml/min 04/06/22 BUN/Creatinine Ratio 18.8 (10-20) 04/06/22 Glu 178 mg/dl (70-99(Fasting)) H 04/06/22 Ca 9.0 mg/dl (8.5-10.1) 04/06/22 Total Bilirubin 0.8 mg/dl (0.2-1.0) 04/05/22 Direct Bilirubin 0.1 mg/dl (0-0.2) 04/05/22 AST 14 U/L (13-39) 04/05/22 ALT 11 U/L (7-52) 04/05/22 Alkaline Phosphatase 117 U/L (34-104) H 04/05/22 TP 7.6 gm/dl (6.0-8.3) 04/05/22 Albumin 3.9 gm/dl (3.4-5.0) 04/05/22 Mg 1.7 mg/dl (1.7-2.4) 04/05/22 23:28 04/05/22 Calcium Level 9.0 mg/dl (8.5-10.1) 04/06/22 03:03 04/06/22 Prothromb Time International Ratio 1.0 (0.9-1.1) 04/05/22 23:28 04/05/22 Venous Blood pH 7.27 (7.36-7.41) L 04/05/22 23:28 04/05/22 Venous Blood Partial Pressure CO2 70 mmHg (38-50) H 04/05/22 23:28 04/05/22 Venous Blood Partial Pressure O2 34 mmHg 04/05/22 23:28 04/05/22 Venous Blood HCO3 32 mmol/L 04/05/22 23:28 04/05/22 Venous Blood Base Excess 2.3 mEq/L 04/05/22 23:28 04/05/22 Venous Blood Oxygen Saturation < 60.0 % 04/05/22 23:28 04/05/22 Blood Gas Barometric Pressure 731.7 mm/Hg 04/05/22 23:28 04/05/22 Arterial Blood pH 7.39 (7.35-7.45) 04/06/22 03:03 04/06/22 Arterial Blood Partial Pressure CO2 48 mmHg (35-46) H 04/06/22 03:03 04/06/22 Arterial Blood Partial Pressure O2 77 mmHg (80-95) L 04/06/22 03:03 04/06/22 Arterial Blood HCO3 29 mmol/L (19-24) H 04/06/22 03:03 04/06/22 Arterial Blood Base Excess 2.9 mEq/L (-9-1.8) H 04/06/22 03:03 04/06/22 Arterial Blood Oxygen Saturation 96.0 % (90-95) H 04/06/22 03:03 04/06/22 Blood Gas Oxygen Given 30% FI02 04/06/22 03:03 04/06/22 Miguel Test Pos (Pos) 04/06/22 03:03 04/06/22 Blood Gas Barometric Pressure 731.7 mm/Hg 04/05/22 23:28 04/05/22 Diagnostic Findings (Past 24 Hours) Chest X-Ray 04/05/22 23:04 XR chest 1V portable CLINICAL HISTORY: shob TECHNIQUE: Single frontal radiograph of the chest was obtained. Comparison: Comparison is made to chest radiograph 04/19/2021 FINDINGS: No lines and tubes are seen. Cardiomegaly is noted. Bilateral lower lung predominant airspace opacities are seen. Pulmonary vascular congestion is seen. There are are small bilateral pleural effusions, left greater than right. IMPRESSION: 1. Bilateral lower lung predominant airspace opacities which may represent atelectasis, pneumonia, and/or aspiration. 2. Mild pulmonary edema. 3. Small bilateral pleural effusions. ACT 112: Negative or not required by law. Electronically signed by: Abdirashid Nelson M.D. 04/06/2022 7:29 AM Chest CTA 04/06/22 01:03 CT angio chest PE protocol CT DOSE: 1085.26 mGy.cm HISTORY: 77 years-old Male with sob. Acute shortness of breath TECHNIQUE: Multiple CTA images of the chest were obtained after the intravenous administration of 120 ml Optiray. Coronal and sagittal MIPS were obtained from the axial data set and were submitted for review. All measurements were obtained according to NASCET criteria. A dose lowering technique was utilized adhering to the principles of ALARA. COMPARISON: Chest CT 02/28/2019 FINDINGS: CTA: Moderate cardiomegaly. Mediastinal lipomatosis. No pericardial effusion. Exten sive coronary artery calcifications. Atherosclerosis of the thoracic aorta without aneurysm. Unremarkable visualized pulmonary artery, suboptimally evaluated secondary to respiratory motion artifact. No pulmonary emboli are identified. CT CHEST: 1.7 cm exophytic nodule of the posterior left thyroid. 1.8 x 1.2 cm lymph node within the right tracheoesophageal recess on image 217 series 4 is similar to mildly decreased in size from the prior study. Calcified left hilar lymph nodes. Small to moderate layering pleural effusions. No pneumothorax. Intralobular septal thickening is noted in conjunction with patchy bilateral groundglass opacities. Dependent bibasilar consolidation with mild linear consolidation of the lingula suggestive of atelectasis. There are no suspicious pulmonary nodules or masses identified. There is no acute process of the imaged upper abdomen. The spleen is enlarged. Partially imaged 8.6 cm cyst of the superior pole right kidney. Unremarkable soft tissues. Gynecomastia. Indeterminate peripherally sclerotic lucent lesion is noted involving the anterior right sixth rib which is unchanged and likely benign. IMPRESSION: 1. No pulmonary emboli identified. 2. Cardiomegaly with small to moderate layering pleural effusions and mild bibasilar predominant atelectasis. 3. Interstitial pulmonary edema with bilateral groundglass densities suggestive of alveolar pulmonary edema. An infectious or inflammatory pneumonitis could appear similarly however is considered less likely. 4. Splenomegaly. ACT 112: Negative or not required by law. The above report was generated using voice recognition software. It may contain grammatical, syntax or spelling errors. Electronically signed by: Jim Ortega M.D. 04/06/2022 6:[address] 04/06/22 01:03 CT head/brain wo con CLINICAL HISTORY: 77 years-old Male with ams. Acutely altered mental status TECHNIQUE: Multiple axial CT images of the head were obtained without contrast. A dose lowering technique was utilized adhering to the principles of ALARA. CT DOSE: 853.38 mGy.cm COMPARISON: Head CT 10/25/2020 FINDINGS: No acute intracranial hemorrhage, midline shift, intra-axial mass, hydrocephalus, territorial ischemia or abnormal extra-axial collection. Age- related involutional changes with ex vacuo ventriculomegaly. White matter hypodensities are suggestive of chronic microvascular ischemic disease. Chronic lacunar infarct of the left lentiform nucleus. Cerebral vascular calcifications. 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 The calvarium is intact. The paranasal sinuses, mastoid air cells, and middle ear cavities are clear. IMPRESSION: No acute intracranial abnormality. ACT 112: Negative or not required by law. The above report was generated using voice recognition software. It may contain grammatical, syntax or spelling errors. Electronically signed by: Jim Ortega M.D. 04/06/2022 6:25 AM I & O Totals 24 Hours 04/05/22 04/06/22 04/07/22 06:59 06:59 06:59 Intake Total 530 / 530 Balance 530 / 530 Cumulative 04/05/22 22:45 thru 04/06/22 12:29 Intake Total 530 Balance 530 RT Ventilator Mngmt (Last Documented) Ventilator Ordered Settings Respiratory Rate 24 04/06/22 12:07 Fraction of Inspired Oxygen 30 04/06/22 07:03 Ventilator - PT Measurements Respiratory Rate 24 PG Care Time/CCT Total # of Minutes Spent Total Time Spent with Patient: Total time spent is greater than 50% in coordination of care (as documented) at patient's floor/unit and/or counseling patient: Coding Level of Care Code 46438 Initial Inpt Care Lvl 3 Diagnoses Acute hypoxemic respiratory failure J96.01 Encephalopathy G93.40 Hypercapnic respiratory failure J96.92
[2022-04-06] MEDS: methylPREDNISolone 40 MG in SYRINGE 0 ML IV SCH ×2 (13:50→21:26)
[2022-04-06] MEDS ORDERED: LEVALBUTEROL HCL 0.63 MG/3 ML NEB ONE (19:21)
[2022-04-06] MEDS: ATORVASTATIN 40 MG TAB PO SCH (20:01)
[2022-04-06] MEDS: allopurinoL 300 MG TAB PO SCH (20:02)
[2022-04-06] MEDS: DOXYCYCLINE HYCLATE 100 MG CAP PO SCH (20:02)
[2022-04-06] MEDS: INSULIN GLARGINE SOLOSTAR 100 UNITS/ML 3 ML PEN SC SCH (21:23)
[2022-04-07] MEDS: PIPERACILLIN/TAZOBACTAM 4.5 GM in DEXTROSE 5% 100 ML IV SCH ×2 (00:02→08:11)
[2022-04-07] MEDS ORDERED: LEVALBUTEROL HCL 0.63 MG/3 ML NEB ONE (00:09)
[2022-04-07] MEDS: IPRATROPIUM BROMIDE NEB SOLN 0.02% 2.5 ML VIAL INH SCH ×4 (00:12→19:00)
[2022-04-07] MEDS: LEVALBUTEROL 1.25MG/0.5ML NEB INH SCH ×4 (00:13→18:59)
[2022-04-07] MEDS: NITROGLYCERIN 2% OINTMENT 30GM TUBE EXT SCH ×4 (04:02→21:51)
[2022-04-07] MEDS: METOPROLOL SUCC 50MG EXT REL TAB PO SCH (04:37)
[2022-04-07] MEDS: methylPREDNISolone 40 MG in SYRINGE 0 ML IV SCH ×2 (05:27→12:44)
[2022-04-07] MEDS: HEPARIN SOD 5,000 UNIT/0.5 ML VIAL SQ SCH ×3 (05:27→21:51)
[2022-04-07 06:23] LABS: Appearance Urine Clear (Clear); Bacteria Urine Automated Negative (Negative); Bilirubin Urine Negative (Negative); Blood Urine 1+ (Negative); Color Urine Yellow; Epithelial Cell Urine Auto >30 /lpf (0-5); Glucose Urine UA Negative (Negative); Ketones Urine Negative (Negative); Leukocyte Esterase Urine 1+ (Negative); Nitrite Urine Negative (Negative); Protein Urine 3+ (Negative); RBC Urine Automated 0-4 /hpf (0-4); Specific Gravity Urine 1.018 (1.000-1.030); Urobilinogen Urine Negative (Negative); WBC Urine Automated >30 /hpf (0-5)
[2022-04-07 06:32] LABS: Renal Epithelial Cells Urine 0-5 /lpf (0-5)
--- NOTE | 2022-04-07 07:50 | Cardiology Progress Note ---
Date of Service April 07, 2022 Assessment & Plan (1) Chronic heart failure with preserved ejection fraction (HFpEF): (2) Chronic right-sided congestive heart failure: (3) Hypertension: (4) CAD (coronary artery disease): (5) Acute hypoxemic respiratory failure: (6) COPD (chronic obstructive pulmonary disease): (7) Encephalopathy: Plan: 77 year old male- presented to ED due to acute hypoxic respirtory failure. Patient appears euvolemic on exam. Weight is stable. CXR showing ?PNA vs acute CHF. Recent events seem to be more pulmonary related rather than a CHF exacerbation. Patient hypertensive since admission- 1" nitro past q6 hours ordered. Was on lisinopril 5 mg daily as an outpatient. Continue lisinopril 5 mg daily- due to renal decline over night, possibly due to hypovolemia, will hold off on adjustment of lisinopril dose. Should renal function remain reduced tomorrow am will need to reconsider ACEi use. Renal function declined. Sodium low. Hold Lasix, repeat BMP in the am, will consider restarting home dose of Torsemide tomorrow. Home dose of diuretics normally Torsemide 20 mg daily PAP with O2 supplement qHS with O2 use during day as ordered. Echo showed LVEF 65-70%, grade II diastolic dysfunction, mild inferior wall hypokinesis, Mild aortic sclerosis- no stenosis. Mild MR and TR. Presumed CAD, last echo 03/2019- There is a moderate sized septal, inferior, and posterior wall motion abnormality with akinesis of the segments. Given lack of angina symptoms will continue to medically manage. Case discussed with Dr. Peguero- will follow. Admission and Anticipated Discharge Date Admission Date: April 06, 2022 Supervising Physician Co-Signing Physician Notes Patient seen examined at the bedside. Denies chest pain. Fluid balance positive 90 cc with creatinine trending upward. Blood pressure improved this afternoon. Telemetry reveals sinus rhythm 70s to 90s. PE: VSS. Gen: NAD, AAO x3. Heart: Regular, Normal S1S2. no murmur. Pulmonary: Diminished breath sounds at the bases bilaterally. No rhonchi or wheeze. Extremities: No edema. A/P: Agree with above AP history, physical exam, assessment and plan. 77-year-old patient admitted with acute hypoxic and hypercapnic respiratory failure. Received IV diuresis 04/06/2022 with subsequent azotemia suggesting intravascular volume depletion. No clinical evidence of volume overload today. Hold diuretic therapy today. Lisinopril will be placed on hold pending review of a.m. labs. Subjective 77 year old male admitted with hypoxic respiratory failure, declining mentation and mobility at home. Findings reflect significant hypertension since admission. No acute EKG changes or changes in echocardiogram. Being treated for diastolic heart failure though exam not consistent with volume overload, no edema no jugular venous distention. IV diuretics continued for 24 hrs. Home dose of lisinopril and topical nitrates added for blood pressure control. Upon entrance into the room patient resting comfortably in the chair. Notes improvement in his breathing from yesterday to today. No chest pain. No palpitations, dizziness, or syncope. Patient unsteady with ambulation, but notes improvement in strength. Decline in renal function from 1.2>>1.64. Tele: SR 70-90s I&O: +500 mL Weight: 119.3 kg >> 111.1 kg Review of Systems Review of Systems: All systems reviewed & are unremarkable except as noted in HPI & below Limited ROS due to patient being a poor historian Physical Exam Constitutional: well nourished and + obese; no acute distress Eyes: PERRL, conjunctivae normal, anicteric sclerae Neck: normal visual inspection Respiratory: normal respiratory effort and able to speak in complete sentences; no cough Auscultation: + diminished lung sounds and + rales (L>R); no rhonchi and no wheezes Cardiovascular: Rate/Rhythm: regular rate and regular rhythm Heart Sounds: normal S1 and normal S2; no murmur Vessels: normal peripheral pulses; no JVD (difficult to assess due to body habitis) Extremities: + edema (trace BLLE edema) Gastrointestinal (Abdomen): Percussion/Palpation: abdomen soft; abdomen nontender Skin: no rashes, warm and dry Psychiatric: Orientation: alert, oriented to person, oriented to place and cooperative Affect: euthymic affect Results & Data ([facility]) Vital Signs (Past 12 Hours) Vital Signs Temp Pulse Pulse Resp BP BP Pulse Ox 04/07/22 07:02 77 77 15 96 04/07/22 03:00 36.7 C 83 18 177/109 H 98 04/07/22 02:50 94 H 13 96 04/07/22 00:13 87 20 99 06/07/22 00:11 94 H 04/06/22 23:00 36.7 C 88 16 184/94 H 91 04/06/22 22:59 94 H 26 H 94
[2022-04-07 08:00] LABS: Basophils # (auto) 0.01 K/uL (0-0.2); Basophils % (auto) 0.1 %; Hematocrit (blood only) 45.4 % (42-52); Hemoglobin 14.5 g/dL (14.0-18.0); Immature Granulocytes # (auto) 0.07 K/uL (0.00-0.02); Immature Granulocytes % (auto) 0.4 %; Lymphocytes # (auto) 1.03 K/uL (1.2-3.4); Lymphocytes % (auto) 5.3 %; Mean Corpuscular Hemoglobin 26.9 pg (25-34); Mean Corpuscular Hgb Conc 31.9 g/dL (32-36); Mean Corpuscular Volume 84.1 fL (80-100); Mean Platelet Volume 8.8 fL (7.4-10.4); Monocytes # (auto) 0.36 K/uL (0.11-0.59); Monocytes % (auto) 1.8 %; Neutrophils % (auto) 92.4 %; Platelet Count 305 K/uL (130-400); RDW Coefficient of Variation 16.6 % (11.5-14.5); RDW Standard Deviation 50.6 fL (36.4-46.3); White Blood Count 19.57 K/uL (4.8-10.8)
[2022-04-07] MEDS: DOXYCYCLINE HYCLATE 100 MG CAP PO SCH (08:02)
[2022-04-07] MEDS: FUROSEMIDE 40 MG/4 ML VIAL IV SCH (08:03)
[2022-04-07] MEDS: PARoxetine HCL 20 MG TAB PO SCH (08:03)
[2022-04-07] MEDS: lisinopril 5 MG TAB PO SCH (08:03)
[2022-04-07 08:05] LABS: BUN Creatinine Ratio 21.3 (10-20); Calcium 9.8 mg/dl (8.5-10.1); Creatinine Clr Calc Pharmacy 45.5 ml/min; Est GFR (African American) 46.7 ml/min; Est GFR (Non-African American) 40.3 ml/min; Magnesium 2.2 mg/dl (1.7-2.4); Potassium 4.4 mmol/L (3.5-5.1)
[2022-04-07] MEDS: INSULIN ASPART PER UNIT SC SCH ×4 (08:07→21:49)
[2022-04-07] MEDS ORDERED: predniSONE 20 MG TAB PO SCH (09:00)
[2022-04-07] MEDS: ASPIRIN 81 MG ECTAB PO SCH (10:24)
[2022-04-07] MEDS: FERROUS SULFATE 325 MG TAB PO SCH (11:00)
--- NOTE | 2022-04-07 12:48 | Pulmonology Progress Note ---
Date of Service April 07, 2022 Assessment & Plan (1) Acute hypoxemic respiratory failure: (2) Encephalopathy: (3) Hypercapnic respiratory failure: Plan: Impression: 77-year-old male with chronic hypoxemic respiratory failure admitted with hypercarbic respiratory failure. He has a history of sleep disordered breathing but is a non-smoker. This would be somewhat unusual for the patient to have significant COPD. PFTs performed over 10 years ago demonstrated a res trictive process. He is improved with empiric CPAP/BiPAP. CT scan showed evidence of fluid overload and his echocardiogram had multiple regional wall motion abnormalities. Cardiology is elected to manage him conservatively and medically. Recommendations: 1. Hypercarbic respiratory failure: Continue empiric PAP on a nightly basis as well as whenever the patient is sleeping. His current settings appear to be adequate. he should be followed in the outpatient setting with review of compliance data. Ideally would like to review his prior sleep studies if possible. Consideration for repeating his studies to ensure adequacy of current therapy may be appropriate. Avoid use of any potentially respiratory suppressing medications. 2. Restrictive PFTs: Recommend repeating complete pulmonary function tests when the patient is clinically stable in the outpatient setting No evidence of interstitial lung disease identified on his CT scan. May be consistent with the patient's body habitus 3. Hypoxemia: Secondary to fluid overload effusions and potential atelectasis causing VQ mismatch. Continue oxygen titrated to maintain saturations 88 to 90%. Would not try and target higher oxygen saturation. 4. Supervised weight loss is recommended as an adjuvant therapy for the patient's sleep disordered breathing. 5. Management of the patient's underlying cardiac issues per cardiology. 6. Bilateral effusions: Continue diuresis and blood pressure control given his grade 2 diastolic dysfunction. 7. Inpatient rehab recommended by PT and OT 8. Do not see evidence of infection. Procalcitonin was not yet checked. He has been afebrile. His white count was elevated of unclear etiology. Would favor stopping antibiotics and following clinically from a pulmonary standpoint. From a pulmonary standpoint, the patient appears to be optimized. Again suspect the patient will require half-way facility or inpatient rehab. He appears to be stable from a pulmonary standpoint. I will sign off at this point time. Feel free to contact us if we can be of additional assistance Admission and Anticipated Discharge Date Admission Date: April 06, 2022 Subjective Patient seen and examined. EMR reviewed. The patient is sitting upright in the chair at bedside. He demonstrates no respiratory issues. He is not having any shortness of breath. He used his BiPAP last night. He felt it function well. He denies any cough or sputum production. No wheezing. Review of Systems Review of Systems: All systems reviewed & are unremarkable except as noted in Subjective Physical Exam Constitutional: well nourished and + obese; no acute distress Eyes: PERRL, conjunctivae normal, anicteric sclerae Neck: normal visual inspection Respiratory: normal respiratory effort, + cough and able to speak in complete sentences Auscultation: + rales (L>R); no rhonchi and no wheezes Cardiovascular: Rate/Rhythm: regular rate and regular rhythm Heart Sounds: normal S1 and normal S2; no murmur Vessels: normal peripheral pulses; no JVD (difficult to assess due to body habitis) Gastrointestinal (Abdomen): Percussion/Palpation: + abdomen firm; abdomen nontender Skin: no rashes, warm and dry Psychiatric: Orientation: alert, oriented to person, oriented to place and cooperative Affect: euthymic affect Results & Data Results & Data ([facility]) Vital Signs (Past 12 Hours) Vital Signs Temp Pulse Pulse Resp BP BP Pulse Ox 04/07/22 12:27 86 18 96 04/07/22 11:30 36.6 C 85 19 136/73 93 04/07/22 07:30 36.6 C 85 14 155/94 H 97 04/07/22 07:02 77 77 15 96 04/07/22 03:00 36.7 C 83 18 177/109 H 98 04/07/22 02:50 94 H 13 96 Laboratory Results 04/07/22 07:21 04/07/22 07:21 Diagnostic Findings No new imaging PG Care Time/CCT Total # of Minutes Spent Total Time Spent with Patient: Total time spent is greater than 50% in coordination of care (as documented) at patient's floor/unit and/or counseling patient: Coding Level of Care Code 27463 Subseq Hosp Care Lvl 2 Diagnoses Acute hypoxemic respiratory failure J96.01 Encephalopathy G93.40 Hypercapnic respiratory failure J96.92
[2022-04-07] MEDS ORDERED: hydrALAZINE HCL 20 MG/ML VIAL IV PRN (16:31)
--- NOTE | 2022-04-07 17:22 | Hospitalist Progress Note ---
Date of Service April 07, 2022 Assessment & Plan (1) Respiratory failure with hypoxia and hypercapnia: (2) Acute metabolic encephalopathy: (3) Acute kidney injury superimposed on CKD: (4) Chronic heart failure with preserved ejection fraction (HFpEF): (5) Poorly-controlled hypertension: Plan: Mr Eduardo Muse is a 77 year old non smoker, history of morbid obesity, RENE on CPAP, on chronic 2L home oxygen, chronic diastolic CHF was brought to the ER on the night of 04/05 due to unresponsiveness in the setting of increasing somnolence. Upon EMS arrival he was not wearing his oxygen and oxygen saturation was in the 40s on room air. He was placed on CPAP then BIPAP once he arrived to the hospital. He has since been weaned to 2L NC. 1. Acute metabolic encephalopathy -due to hypercarbia which has now resolved 2. Acute on chronic hypercapnic and hypoxic respiratory failure -VBG on admission:pH 7.2, pCO2- 70, HCO3- 34 -Repeat ABG on BIPAP- pH 7.39, pCO2- 48, HCO3- 29, 96 % on FIO2- 30% -He was seen by Pulmonology, appreciate input. With his non smoking history, it is unlikely he has significant underlying COPD. Last PFTs from 2006 indicate restrictive lung disease, possibly related to his body habitus. He should maintain PAP treatment at nighttime and have repeat PFTs after discharge. -s/p prednisone then solumedrol, now discontinued 3. Acute on chronic diastolic CHF -CT chest shows increased interstitial edema and bilateral pleural effusion -he is on torsemide 20mg daily although compliance is questionable. He was s/p Lasix 40mg IV BID x 3 doses. Further doses have been held due to SUKUMAR. currently he appears euvolemic -TTE 04/06 shows grade 2 diastolic dysfunction, EF 65-70%, mod concentric LVH -Appreciate Cardiology input 4. Leukocytosis -Initially there was concern for pneumonia, he was on doxycycline and zosyn. Further antibiotics have been discontinued. Will monitor off antibiotics. Procalcitonin 0.53 -likely stress and steroid induced -blood cultures so far negative. Urine culture pending 5. Poorly controlled HTN -At home, he was on lisinopril 5mg daily and metoprolol XL 100mg daily -Lisinopril has been held due to SUKUMAR, continue toprol 100mg daily. Add amlodipine 5mg daily, PRN hydralazine for SBP > 180 6. SUKUMAR on CKD 3 -holding lisinopril and further doses of lasix -will repeat BMP tomorrow Disposition -from home, lives with . Evaluated by PT and rehab is recommended. Admission and Anticipated Discharge Date Admission Date: April 06, 2022 Subjective Patient feels well. No complaints currently. He is eating dinner and is visiting Denies chest pain, shortness of breath Currently on 2L NC which is his baseline Physical Exam Physical Exam: Appears unkempt, chronically ill appearing, no acute distress, sitting in chair and eating dinner currently Respiratory: No wheezing/rhonchi/rales Cardiovascular: regular rate and rhythm, no murmurs/rubs/gallops Gastrointestinal (Abdomen): soft, non tender, increased abdominal girth Musculoskeletal: No edema Neurologic: awake, spontaneously moving extremities Results & Data Results & Data ([facility]) Vital Signs (Past 12 Hours) Vital Signs Temp Pulse Pulse Resp BP BP Pulse Ox 04/07/22 16:04 223/102 H 04/07/22 15:03 84 04/07/22 13:36 76 04/07/22 12:27 86 18 96 04/07/22 11:30 36.6 C 85 19 136/73 93 04/07/22 07:30 36.6 C 85 14 155/94 H 97 04/07/22 07:02 77 77 15 96 Laboratory Results Short CBC 04/07/22 Range/Units 07:21 WBC 19.57 H (4.8-10.8) K/uL Hgb 14.5 (14.0-18.0) g/dL Hct 45.4 (42-52) % Plt Count 305 (130-400) K/uL BMP 04/07/22 07:21 Sodium 135 L Potassium 4.4 Chloride 97 L Carbon Dioxide 29 BUN 35 H Creatinine 1.64 H D Glucose 176 H Calcium 9.8 Urine 04/07/22 Range/Units 05:32 Urine Color Yellow Urine Appearance Clear (Clear) Urine pH 6.0 (4.5-7.5) Ur Specific [place] 1.018 (1.000-1.030) Urine Protein 3+ H (Negative) Urine Glucose (UA) Negative (Negative) Medications Administered Current Inpatient Medications Acetaminophen (Acetaminophen 325 Mg Tab) 650 mg PO Q4H PRN PRN Reason: Pain or Fever Stop: 05/06/22 02:46 Allopurinol (Allopurinol 300 Mg Tab) 300 mg PO HS [facility] Stop: 05/06/22 20:59 Last Admin: 04/06/22 20:02 Dose: 300 mg Documented by: Amlodipine Besylate (Amlodipine Besylate 5 Mg Tab) 5 mg PO DAILY [facility] Stop: 05/07/22 16:59 Aspirin (Aspirin 81 Mg Ectab) 81 mg PO QAM [facility] Stop: 05/06/22 08:59 Last Admin: 04/07/22 10:24 Dose: 81 mg Documented by: Atorvastatin Calcium (Atorvastatin 40 Mg Tab) 40 mg PO HS [facility] Stop: 05/06/22 20:59 Last Admin: 04/06/22 20:01 Dose: 40 mg Documented by: Dextrose (Dextrose 50% 50 Ml Syringe) 25 - 50 ml IV UD PRN; Protocol PRN Reason: Hypoglycemia Protocol Stop: 05/06/22 02:46 Ferrous Sulfate (Ferrous Sulfate 325 Mg Tab) 325 mg PO Q24H [facility] Stop: 05/06/22 11:59 Last Admin: 04/07/22 11:00 Dose: 325 mg Documented by: Glucagon (Glucagon For Inj 1 Mg Vial) 1 mg SQ UD PRN; Protocol PRN Reason: Hypoglycemia Protocol Stop: 05/06/22 02:46 Glucose (Glucose 10 Tabs/Tube) 4 - 8 tabs PO UD PRN; Protocol PRN Reason: Hypoglycemia Protocol Stop: 05/06/22 02:46 Glucose (Glucose 40% Gel 15 Gm Tube) 15 - 30 gm PO UD PRN; Protocol PRN Reason: Hypoglycemia Protocol Stop: 05/06/22 02:46 Heparin Sodium (Porcine) (Heparin Sod 5,000 Unit/0.5 Ml Vial) 5,000 units SQ Q8 [facility] Stop: 05/06/22 05:59 Last Admin: 04/07/22 12:44 Dose: 5,000 units Documented by: Hydralazine HCl (Hydralazine Hcl 20 Mg/Ml Vial) 10 mg IV Q6 PRN PRN Reason: blood pressure Stop: 05/07/22 16:30 Insulin Aspart (Insulin Aspart Per Unit) 0 units SC ACHS [facility] Stop: 05/06/22 16:29 Last Admin: 04/07/22 12:44 Dose: 8 units Documented by: Insulin Glargine (Insulin Glargine Solostar 100 Units/Ml 3 Ml Pen) 10 units SC HS [facility] Stop: 05/06/22 20:59 Last Admin: 04/06/22 21:23 Dose: 10 units Documented by: Ipratropium [place] (Ipratropium [place] Neb Soln 0.02% 2.5 Ml Vial) 0.5 mg INH Q6R [facility] Stop: 05/06/22 06:59 Last Admin: 04/07/22 12:27 Dose: 0.5 mg Documented by: Levalbuterol HCl (Levalbuterol 1.25mg/0.5ml Neb) 1.25 mg INH Q6R [facility] Stop: 05/06/22 06:59 Last Admin: 04/07/22 12:27 Dose: 1.25 mg Documented by: Lisinopril (Lisinopril 5 Mg Tab) 5 mg PO QAM [facility] Stop: 05/06/22 11:29 Last Admin: 04/07/22 08:03 Dose: 5 mg Documented by: Metoprolol Succinate (Metoprolol Succ 50mg Ext Rel Tab) 100 mg PO DAILY [facility] Stop: 05/07/22 04:09 Last Admin: 04/07/22 04:37 Dose: 100 mg Documented by: Miscellaneous (Carbohydrates For Hypoglycemia ) 15 - 30 gm PO UD PRN PRN Reason: Hypoglycemia Protocol Stop: 05/06/22 02:46 Nitroglycerin (Nitroglycerin Sl 0.4 Mg/Tab Tab) 0.4 mg SL UD PRN PRN Reason: Chest Pain Stop: 05/06/22 02:46 Nitroglycerin (Nitroglycerin 2% Ointment 30gm Tube) 1 inch EXT Q6H [facility] Stop: 05/06/22 10:29 Last Admin: 04/07/22 10:59 Dose: 1 inch Documented by: Paroxetine HCl (Paroxetine Hcl 20 Mg Tab) 40 mg PO QAM [facility] Stop: 05/06/22 08:59 Last Admin: 04/07/22 08:03 Dose: 40 mg Documented by:
[2022-04-07] MEDS: amLODIPine BESYLATE 5 MG TAB PO SCH (17:32)
--- NOTE | 2022-04-07 19:43 | Electrocardiogram Report ---
Test Reason : Blood Pressure : / mmHG Vent. Rate : 096 BPM Atrial Rate : 096 BPM P-R Int : 180 ms QRS Dur : 096 ms QT Int : 378 ms P-R-T Axes : 046 024 035 degrees QTc Int : 477 ms Poor data quality, interpretation may be adversely affected Normal sinus rhythm Nonspecific T wave abnormality When compared with ECG of 19-APR-2021 13:00, T wave inversion less evident in Lateral leads QT has lengthened Confirmed by Johnson Rivers ([id number]) on 04/07/2022 7:43:10 PM Referred By: REFERRED SELF Confirmed By:Johnson Rivers
[2022-04-07] MEDS: allopurinoL 300 MG TAB PO SCH (20:46)
[2022-04-07] MEDS: ATORVASTATIN 40 MG TAB PO SCH (20:47)
[2022-04-07] MEDS: INSULIN GLARGINE SOLOSTAR 100 UNITS/ML 3 ML PEN SC SCH (21:50)
[2022-04-08] MEDS: IPRATROPIUM BROMIDE NEB SOLN 0.02% 2.5 ML VIAL INH SCH ×4 (00:01→19:26)
[2022-04-08] MEDS: LEVALBUTEROL 1.25MG/0.5ML NEB INH SCH ×5 (00:01→19:26)
[2022-04-08] MEDS: NITROGLYCERIN 2% OINTMENT 30GM TUBE EXT SCH ×2 (04:50→11:07)
[2022-04-08] MEDS: HEPARIN SOD 5,000 UNIT/0.5 ML VIAL SQ SCH ×3 (05:04→21:26)
[2022-04-08] MEDS ORDERED: LEVALBUTEROL HCL 1.25 MG/3 ML NEB ONE ×2 (06:59→12:57)
[2022-04-08 08:07] LABS: Basophils # (auto) 0.01 K/uL (0-0.2); Eosinophils # (auto) 0.01 K/uL (0-0.5); Hematocrit (blood only) 47.6 % (42-52); Hemoglobin 14.8 g/dL (14.0-18.0); Immature Granulocytes # (auto) 0.12 K/uL (0.00-0.02); Immature Granulocytes % (auto) 0.6 %; Lymphocytes % (auto) 9.4 %; Mean Corpuscular Hemoglobin 26.5 pg (25-34); Mean Corpuscular Hgb Conc 31.1 g/dL (32-36); Mean Corpuscular Volume 85.2 fL (80-100); Mean Platelet Volume 8.7 fL (7.4-10.4); Monocytes # (auto) 1.21 K/uL (0.11-0.59); Monocytes % (auto) 5.7 %; Neutrophils # (auto) 17.85 K/uL (1.4-6.5); Neutrophils % (auto) 84.3 %; Platelet Count 331 K/uL (130-400); RDW Coefficient of Variation 16.9 % (11.5-14.5); RDW Standard Deviation 51.7 fL (36.4-46.3); Red Blood Count 5.59 M/uL (4.7-6.1)
[2022-04-08] MEDS: INSULIN ASPART PER UNIT SC SCH ×4 (08:19→21:17)
[2022-04-08] MEDS: PARoxetine HCL 20 MG TAB PO SCH (08:22)
[2022-04-08 08:23] LABS: Est GFR (African American) 58.1 ml/min
[2022-04-08] MEDS: ASPIRIN 81 MG ECTAB PO SCH (08:23)
[2022-04-08 08:24] LABS: BUN Creatinine Ratio 32.8 (10-20); Calcium 9.7 mg/dl (8.5-10.1); Creatinine Clr Calc Pharmacy 54.5 ml/min; Est GFR (Non-African American) 50.1 ml/min; Magnesium 2.2 mg/dl (1.7-2.4)
[2022-04-08] MEDS: METOPROLOL SUCC 50MG EXT REL TAB PO SCH (08:24)
[2022-04-08] MEDS: amLODIPine BESYLATE 5 MG TAB PO SCH (08:24)
--- NOTE | 2022-04-08 08:25 | Cardiology Progress Note ---
Date of Service April 08, 2022 Assessment & Plan (1) Chronic heart failure with preserved ejection fraction (HFpEF): (2) Chronic right-sided congestive heart failure: (3) Hypertension: (4) CAD (coronary artery disease): (5) Acute hypoxemic respiratory failure: (6) COPD (chronic obstructive pulmonary disease): (7) Encephalopathy: Plan: 77 year old male- presented to ED due to acute hypoxic respiratory failure. Patient appears euvolemic on exam. Weight is stable. Recent events seem to be more pulmonary related rather than a CHF exacerbation. Patient hypertensive on admission- 1" nitro past q6 hours started. Was on lisinopril 5 mg daily as an outpatient restarted 04/07. Lisinopril held 04/08 due to decline in renal function. (ACEi induced vs hypovolemia due to IV diuresis) Hypertensive overnight- started on Norvasc 5 mg daily, 04/07 Will hold off on restarting ACEi due to labile renal function. Start hydralazine 10 mg TID. Pending response may need to adjust dosage at discharge for compliance. Renal function improved to baseline. Patient appears euvolemic on exam. Continue to hold Lasix, will consider restarting home dose of Torsemide tomorrow. Home dose of diuretics normally Torsemide 20 mg daily Repeat BMP tomorrow am. PAP with O2 supplement qHS with O2 use during day as ordered. Echo showed LVEF 65-70%, grade II diastolic dysfunction, mild inferior wall hypokinesis, Mild aortic sclerosis- no stenosis. Mild MR and TR. Presumed CAD, last echo 03/2019- There is a moderate sized septal, inferior, and posterior wall motion abnormality with akinesis of the segments. Given lack of angina symptoms will continue to medically manage. Case discussed with Dr. Peguero- will follow. Admission and Anticipated Discharge Date Admission Date: April 06, 2022 Supervising Physician Co-Signing Physician Notes Patient seen examined at the bedside. Denies chest pain. Fluid balance positive 464cc. Diuretics on hold. Creatinine trending downward. Blood pressure elevated. PE: VSS. Gen: NAD, AAO x3. Heart: Regular, Normal S1S2. no murmur. Pulmonary: Diminished breath sounds at the bases bilaterally. No rhonchi or wheeze. Extremities: No edema. A/P: Agree with above AP history, physical exam, assessment and plan. 77-year-old patient admitted with acute hypoxic and hypercapnic respiratory failure. Received IV diuresis 04/06/2022 with subsequent azotemia suggesting intravascular volume depletion. Diuretics subsequently discontinued 04/07/2022 with improvement of renal function. Recommend restart lisinopril. Continue amlodipine and Toprol-XL. Discontinue topical nitrates. Repeat BMP in a.m. Subjective 77 year old male admitted with hypoxic respiratory failure, declining mentation and mobility at home. Findings reflect significant hypertension on admission. No acute EKG changes or changes in echocardiogram. was being treated for diastolic heart failure though exam not consistent with volume overload, no edema no jugular venous distention. IV diuretics continued for 24 hrs. Decline in renal function 04/07- diuretics and ACEi held pending lab work this am. Renal function improved this morning. Chart reviewed patient examined. Upon entrance into the room patient resting comfortably in the chair. Describes breathing as "excellent" No chest pain. No palpitations, dizziness, or syncope. Patient unsteady with ambulation, but notes improvement in strength. Tele: SR 70-80s Weight: 119.3 kg >> 111.1 kg Review of Systems Review of Systems: All systems reviewed & are unremarkable except as noted in HPI & below Physical Exam Constitutional: well nourished and + obese; no acute distress Eyes: PERRL, conjunctivae normal, anicteric sclerae Neck: normal visual inspection and trachea midline Respiratory: normal respiratory effort and able to speak in complete sentences; no cough Auscultation: lungs clear to auscultation bilaterally; no rales, no rhonchi and no wheezes Cardiovascular: Rate/Rhythm: regular rate and regular rhythm Heart Sounds: normal S1 and normal S2; no murmur Vessels: normal peripheral pulses; no JVD (difficult to assess due to body habitis) Extremities: + edema (trace BLLE edema) Gastrointestinal (Abdomen): Percussion/Palpation: abdomen soft; abdomen nontender Skin: no rashes, warm and dry Psychiatric: Orientation: alert, oriented x 3 and cooperative Affect: euthymic affect Results & Data ([facility]) Vital Signs (Past 12 Hours) Vital Signs Temp Pulse Pulse Resp BP Pulse Ox 04/08/22 07:06 73 16 97 04/08/22 03:36 36.9 C 71 20 160/91 H 97 04/08/22 00:14 36.9 C 73 18 163/89 H 95 04/08/22 00:01 74 18 97 04/07/22 23:37 75 04/07/22 20:23 36.6 C 82 18 179/97 H 95 Laboratory Results CBC 04/08/22 Range/Units 07:50 WBC 21.20 H (4.8-10.8) K/uL RBC 5.59 (4.7-6.1) M/uL Hgb 14.8 (14.0-18.0) g/dL Hct 47.6 (42-52) % Plt Count 331 (130-400) K/uL Neut # (Auto) 17.85 H (1.4-6.5) K/uL Lymph # (Auto) 2.00 (1.2-3.4) K/uL [place] # (Auto) 1.21 H (0.11-0.59) K/uL Eos # (Auto) 0.01 (0-0.5) K/uL Baso # (Auto) 0.01 (0-0.2) K/uL Comprehensive Metabolic Panel 04/08/22 Range/Units 07:50 Sodium 137 (136-145) mmol/L Potassium 4.0 (3.5-5.1) mmol/L Chloride 95 L (98-107) mmol/L Carbon Dioxide 34 H (21-32) mmol/L BUN 45 H (6-23) mg/dl Creatinine 1.37 (0.6-1.4) mg/dl Glucose 130 H (70-99(Fasting)) mg/dl Calcium 9.7 (8.5-10.1) mg/dl Intake and Output 04/07/22 04/08/22 04/08/22 22:59 06:59 14:59 Intake Total 150 / 785 Balance 150 / 584 Intake: Oral 150 / 665 Other: # Urine Diapers 2
[2022-04-08] MEDS ORDERED: hydrALAZINE 10 MG TAB PO SCH (09:35)
--- NOTE | 2022-04-08 10:07 | Hospitalist Progress Note ---
Date of Service April 08, 2022 Assessment & Plan (1) Respiratory failure with hypoxia and hypercapnia: (2) Acute metabolic encephalopathy: (3) Acute kidney injury superimposed on CKD: (4) Chronic heart failure with preserved ejection fraction (HFpEF): (5) Poorly-controlled hypertension: Plan: Mr Eduardo Muse is a 77 year old non smoker, history of morbid obesity, RENE on CPAP, on chronic 2L home oxygen, chronic diastolic CHF was brought to the ER on the night of 04/05 due to unresponsiveness in the setting of increasing somnolence. Upon EMS arrival he was not wearing his oxygen and oxygen saturation was in the 40s on room air. He was placed on CPAP then BIPAP once he arrived to the hospital. He has since been weaned to 2L NC. 1. Acute metabolic encephalopathy -due to hypercarbia which has now resolved 2. Acute on chronic hypercapnic and hypoxic respiratory failure -VBG on admission:pH 7.2, pCO2- 70, HCO3- 34 -Repeat ABG on BIPAP- pH 7.39, pCO2- 48, HCO3- 29, 96 % on FIO2- 30% -He was seen by Pulmonology, appreciate input. With his non smoking history, it is unlikely he has significant underlying COPD. Last PFTs from 2006 indicate restrictive lung disease, possibly related to his body habitus. He should maintain PAP treatment at nighttime and have repeat PFTs after discharge. He may also need to repeat sleep study -s/p prednisone then solumedrol, now discontinued 3. Acute on chronic diastolic CHF -CT chest shows increased interstitial edema and bilateral pleural effusion -he is on torsemide 20mg daily although compliance is questionable. He was s/p Lasix 40mg IV BID x 3 doses. Further doses have been held due to SUKUMAR. currently he appears euvolemic -TTE 04/06 shows grade 2 diastolic dysfunction, EF 65-70%, mod concentric LVH -Appreciate Cardiology input Per cardiology - hold hydralazine p.o., restart lisinopril 5 mg daily, stop topical nitrate, continue metoprolol, continue amlodipine, repeat BMP am 4. Leukocytosis -Initially there was concern for pneumonia, he was on doxycycline and zosyn. Further antibiotics have been discontinued. Will monitor off antibiotics. Procalcitonin 0.53 -likely stress and steroid induced -blood cultures so far negative. Urine culture pending 5. Poorly controlled HTN -At home, he was on lisinopril 5mg daily and metoprolol XL 100mg daily -Lisinopril has been held due to SUKUMAR, continue toprol 100mg daily. Added amlodipine 5mg daily, PRN hydralazine for SBP > 180 Now restart lisinopril, as renal function back to baseline 6. SUKUMAR on CKD 3 -held lisinopril and further doses of lasix Disposition -from home, lives with . Evaluated by PT and rehab is recommended. Plan to discharge to [facility]. Admission and Anticipated Discharge Date Admission Date: April 06, 2022 Subjective Patient seen in follow-up of hypoxic, hypercarbic respiratory failure, encephalopathy, CHF exacerbation Currently patient is sitting up in chair, in no acute distress, using 2 L of oxygen via nasal cannula, which is his baseline Patient's is present at the bedside She reports patient was ambulating with a walker to the bathroom Currently patient denies any chest pain, shortness of breath, palpitations, fevers, chills, abdominal pain, nausea or vomiting Review of Systems Review of Systems: All systems reviewed & are unremarkable except as noted in Subjective Physical Exam Physical Exam: Physical Exam: + chronically ill appearing, no acut e distress, sittin g in chair in NAD on 2L of O2 Respiratory: CTAB, No wheezing/ rhonchi/rales Cardiovascular:L regular rate and r hythm, no murmurs/ rubs/gallops Gastrointestinal ( Abdomen): soft, non tender, increased abdomina l girth Musculoskeletal: No edema Neurologic: awake, spontaneous ly moving extremit ies Results & Data Results & Data ([facility]) Vital Signs (Past 12 Hours) Vital Signs Temp Pulse Pulse Resp BP Pulse Ox 04/08/22 07:06 73 16 97 04/08/22 07:00 37.0 C 70 20 149/64 H 96 04/08/22 03:36 36.9 C 71 20 160/91 H 97 04/08/22 00:14 36.9 C 73 18 163/89 H 95 04/08/22 00:01 74 18 97 04/07/22 23:37 75 Laboratory Results 04/08/22 04/08/22 04/08/22 Range/Units 07:50 07:50 07:43 WBC 21.20 H (4.8-10.8) K/uL RBC 5.59 (4.7-6.1) M/uL Hgb 14.8 (14.0-18.0) g/dL Hct 47.6 (42-52) % MCV 85.2 (80-100) fL MCH 26.5 (25-34) pg MCHC 31.1 L (32-36) g/dL RDW Std Deviation 51.7 H (36.4-46.3) fL RDW Coeff of Alfonso 16.9 H (11.5-14.5) % Plt Count 331 (130-400) K/uL MPV 8.7 (7.4-10.4) fL Immature Gran % (Auto) 0.6 % Neut % (Auto) 84.3 % Lymph % (Auto) 9.4 % [place] % (Auto) 5.7 % Eos % (Auto) 0.0 % Baso % (Auto) 0.0 % Neut # (Auto) 17.85 H (1.4-6.5) K/uL Lymph # (Auto) 2.00 (1.2-3.4) K/uL [place] # (Auto) 1.21 H (0.11-0.59) K/uL Eos # (Auto) 0.01 (0-0.5) K/uL Baso # (Auto) 0.01 (0-0.2) K/uL Immature Gran # (Auto) 0.12 H (0.00-0.02) K/uL Sodium 137 (136-145) mmol/L Potassium 4.0 (3.5-5.1) mmol/L Chloride 95 L (98-107) mmol/L Carbon Dioxide 34 H (21-32) mmol/L Anion Gap 8 (3-11) BUN 45 H (6-23) mg/dl Creatinine 1.37 (0.6-1.4) mg/dl Est Cr Clr Drug Dosing 54.5 ml/min Est GFR ( Amer) 58.1 ml/min Est GFR (Non-Af Amer) 50.1 ml/min BUN/Creatinine Ratio 32.8 H (10-20) Glucose 130 H (70-99(Fasting)) mg/dl POC Glucose 138 H (70-99) mg/dl Calcium 9.7 (8.5-10.1) mg/dl Magnesium 2.2 (1.7-2.4) mg/dl Procalcitonin (0-0.5) ng/ml 04/07/22 04/07/22 04/07/22 Range/Units 21:12 16:27 16:03 WBC (4.8-10.8) K/uL RBC (4.7-6.1) M/uL Hgb (14.0-18.0) g/dL Hct (42-52) % MCV (80-100) fL MCH (25-34) pg MCHC (32-36) g/dL RDW Std Deviation (36.4-46.3) fL RDW Coeff of Alfonso (11.5-14.5) % Plt Count (130-400) K/uL MPV (7.4-10.4) fL Immature Gran % (Auto) % Neut % (Auto) % Lymph % (Auto) % [place] % (Auto) % Eos % (Auto) % Baso % (Auto) % Neut # (Auto) (1.4-6.5) K/uL Lymph # (Auto) (1.2-3.4) K/uL [place] # (Auto) (0.11-0.59) K/uL Eos # (Auto) (0-0.5) K/uL Baso # (Auto) (0-0.2) K/uL Immature Gran # (Auto) (0.00-0.02) K/uL Sodium (136-145) mmol/L Potassium (3.5-5.1) mmol/L Chloride (98-107) mmol/L Carbon Dioxide (21-32) mmol/L Anion Gap (3-11) BUN (6-23) mg/dl Creatinine (0.6-1.4) mg/dl Est Cr Clr Drug Dosing ml/min Est GFR ( Amer) ml/min Est GFR (Non-Af Amer) ml/min BUN/Creatinine Ratio (10-20) Glucose (70-99(Fasting)) mg/dl POC Glucose 172 H 165 H (70-99) mg/dl Calcium (8.5-10.1) mg/dl Magnesium (1.7-2.4) mg/dl Procalcitonin 0.53 H (0-0.5) ng/ml 06/07/22 Range/Units 10:58 WBC (4.8-10.8) K/uL RBC (4.7-6.1) M/uL Hgb (14.0-18.0) g/dL Hct (42-52) % MCV (80-100) fL MCH (25-34) pg MCHC (32-36) g/dL RDW Std Deviation (36.4-46.3) fL RDW Coeff of Alfonso (11.5-14.5) % Plt Count (130-400) K/uL MPV (7.4-10.4) fL Immature Gran % (Auto) % Neut % (Auto) % Lymph % (Auto) % [place] % (Auto) % Eos % (Auto) % Baso % (Auto) % Neut # (Auto) (1.4-6.5) K/uL Lymph # (Auto) (1.2-3.4) K/uL [place] # (Auto) (0.11-0.59) K/uL Eos # (Auto) (0-0.5) K/uL Baso # (Auto) (0-0.2) K/uL Immature Gran # (Auto) (0.00-0.02) K/uL Sodium (136-145) mmol/L Potassium (3.5-5.1) mmol/L Chloride (98-107) mmol/L Carbon Dioxide (21-32) mmol/L Anion Gap (3-11) BUN (6-23) mg/dl Creatinine (0.6-1.4) mg/dl Est Cr Clr Drug Dosing ml/min Est GFR ( Amer) ml/min Est GFR (Non-Af Amer) ml/min BUN/Creatinine Ratio (10-20) Glucose (70-99(Fasting)) mg/dl POC Glucose 265 H (70-99) mg/dl Calcium (8.5-10.1) mg/dl Magnesium (1.7-2.4) mg/dl Procalcitonin (0-0.5) ng/ml Medications Administered Current Inpatient Medications Acetaminophen (Acetaminophen 325 Mg Tab) 650 mg PO Q4H PRN PRN Reason: Pain or Fever Stop: 05/06/22 02:46 Allopurinol (Allopurinol 300 Mg Tab) 300 mg PO HS [facility] Stop: 05/06/22 20:59 Last Admin: 04/07/22 20:46 Dose: 300 mg Documented by: Amlodipine Besylate (Amlodipine Besylate 5 Mg Tab) 5 mg PO DAILY [facility] Stop: 05/07/22 16:59 Last Admin: 04/08/22 08:24 Dose: 5 mg Documented by: Aspirin (Aspirin 81 Mg Ectab) 81 mg PO QAM [facility] Stop: 05/06/22 08:59 Last Admin: 04/08/22 08:23 Dose: 81 mg Documented by: Atorvastatin Calcium (Atorvastatin 40 Mg Tab) 40 mg PO HS [facility] Stop: 05/06/22 20:59 Last Admin: 04/07/22 20:47 Dose: 40 mg Documented by: Dextrose (Dextrose 50% 50 Ml Syringe) 25 - 50 ml IV UD PRN; Protocol PRN Reason: Hypoglycemia Protocol Stop: 05/06/22 02:46 Ferrous Sulfate (Ferrous Sulfate 325 Mg Tab) 325 mg PO Q24H [facility] Stop: 05/06/22 11:59 Last Admin: 04/07/22 11:00 Dose: 325 mg Documented by: Glucagon (Glucagon For Inj 1 Mg Vial) 1 mg SQ UD PRN; Protocol PRN Reason: Hypoglycemia Protocol Stop: 05/06/22 02:46 Glucose (Glucose 10 Tabs/Tube) 4 - 8 tabs PO UD PRN; Protocol PRN Reason: Hypoglycemia Protocol Stop: 05/06/22 02:46 Glucose (Glucose 40% Gel 15 Gm Tube) 15 - 30 gm PO UD PRN; Protocol PRN Reason: Hypoglycemia Protocol Stop: 05/06/22 02:46 Heparin Sodium (Porcine) (Heparin Sod 5,000 Unit/0.5 Ml Vial) 5,000 units SQ Q8 [facility] Stop: 05/06/22 05:59 Last Admin: 04/08/22 05:04 Dose: 5,000 units Documented by: Hydralazine HCl (Hydralazine Hcl 20 Mg/Ml Vial) 10 mg IV Q6 PRN PRN Reason: blood pressure Stop: 05/07/22 16:30 Hydralazine HCl (Hydralazine 10 Mg Tab) 10 mg PO TID [facility] Stop: 05/08/22 09:34 Insulin Aspart (Insulin Aspart Per Unit) 0 units SC ACHS [facility] Stop: 05/06/22 16:29 Last Admin: 04/08/22 08:19 Dose: 5 units Documented by: Insulin Glargine (Insulin Glargine Solostar 100 Units/Ml 3 Ml Pen) 10 units SC HS [facility] Stop: 05/06/22 20:59 Last Admin: 04/07/22 21:50 Dose: 10 units Documented by: Ipratropium [place] (Ipratropium [place] Neb Soln 0.02% 2.5 Ml Vial) 0.5 mg INH Q6R [facility] Stop: 05/06/22 06:59 Last Admin: 04/08/22 07:06 Dose: 0.5 mg Documented by: Levalbuterol HCl (Levalbuterol 1.25mg/0.5ml Neb) 1.25 mg INH Q6R [facility] Stop: 05/06/22 06:59 Last Admin: 04/08/22 07:06 Dose: 1.25 mg Documented by: Lisinopril (Lisinopril 5 Mg Tab) 5 mg PO QAM [facility] Stop: 05/06/22 11:29 Last Admin: 04/07/22 08:03 Dose: 5 mg Documented by: Metoprolol Succinate (Metoprolol Succ 50mg Ext Rel Tab) 100 mg PO DAILY [facility] Stop: 05/07/22 04:09 Last Admin: 04/08/22 08:24 Dose: 100 mg Documented by: Miscellaneous (Carbohydrates For Hypoglycemia ) 15 - 30 gm PO UD PRN PRN Reason: Hypoglycemia Protocol Stop: 05/06/22 02:46 Nitroglycerin (Nitroglycerin Sl 0.4 Mg/Tab Tab) 0.4 mg SL UD PRN PRN Reason: Chest Pain Stop: 05/06/22 02:46 Nitroglycerin (Nitroglycerin 2% Ointment 30gm Tube) 1 inch EXT Q6H [facility] Stop: 05/06/22 10:29 Last Admin: 04/08/22 04:50 Dose: 1 inch Documented by: Paroxetine HCl (Paroxetine Hcl 20 Mg Tab) 40 mg PO QAM [facility] Stop: 05/06/22 08:59 Last Admin: 04/08/22 08:22 Dose: 40 mg Documented by:
[2022-04-08] MEDS: FERROUS SULFATE 325 MG TAB PO SCH (11:07)
[2022-04-08] MEDS: ATORVASTATIN 40 MG TAB PO SCH (20:28)
[2022-04-08] MEDS: allopurinoL 300 MG TAB PO SCH (20:28)
[2022-04-08] MEDS: INSULIN GLARGINE SOLOSTAR 100 UNITS/ML 3 ML PEN SC SCH (21:18)
[2022-04-09] MEDS: HEPARIN SOD 5,000 UNIT/0.5 ML VIAL SQ SCH ×3 (05:02→21:30)
[2022-04-09] MEDS ORDERED: LEVALBUTEROL HCL 1.25 MG/3 ML NEB ONE (06:56)
[2022-04-09] MEDS: IPRATROPIUM BROMIDE NEB SOLN 0.02% 2.5 ML VIAL INH SCH ×4 (07:11→19:31)
[2022-04-09] MEDS: LEVALBUTEROL 1.25MG/0.5ML NEB INH SCH ×4 (07:12→19:31)
--- NOTE | 2022-04-09 07:52 | Cardiology Progress Note ---
Date of Service April 09, 2022 Assessment & Plan (1) Chronic heart failure with preserved ejection fraction (HFpEF): (2) Chronic right-sided congestive heart failure: (3) Hypertension: (4) CAD (coronary artery disease): (5) Acute hypoxemic respiratory failure: (6) COPD (chronic obstructive pulmonary disease): (7) Encephalopathy: Plan: 77 year old male- presented to ED due to acute hypoxic respiratory failure. Patient appears euvolemic on exam. Recent events seem to be more pulmonary related rather than a CHF exacerbation. Patient hypertensive on admission- 1" nitro past q6 hours started- Dc'd 04/08 Was on lisinopril 5 mg daily as an outpatient restarted 04/07. Lisinopril held 04/08 due to decline in renal function. (ACEi induced vs hypovolemia due to IV diuresis) Started on Norvasc 5 mg daily, 04/07 Lisinopril restarted 04/08- BMP showed scr 1.49 Blood pressures much improved this am- for now continue as ordered. Repeat BMP in the am to reassess renal function Patient appears euvolemic on exam. Continue to hold diuretic, will consider restarting home dose of Torsemide tomorrow. Home dose of diuretics normally Torsemide 20 mg daily PAP with O2 supplement qHS with O2 use during day as ordered. Echo showed LVEF 65-70%, grade II diastolic dysfunction, mild inferior wall hypokinesis, Mild aortic sclerosis- no stenosis. Mild MR and TR. Presumed CAD, last echo 03/2019- There is a moderate sized septal, inferior, and posterior wall motion abnormality with akinesis of the segments. Given lack of angina symptoms will continue to medically manage. Nursing made aware of lesion on tongue- will alert primary team. Case discussed with Dr. Peguero- will follow. Admission and Anticipated Discharge Date Admission Date: April 06, 2022 Supervising Physician Co-Signing Physician Notes Patient seen examined at the bedside. Denies chest pain. Fluid balance positive 720cc. Diuretics on hold. Lisinopril restarted yesterday with mild increase of serum creatinine. PE: VSS. Gen: NAD, AAO x3. Heart: Regular, Normal S1S2. no murmur. Pulmonary: Diminished breath sounds at the bases bilaterally. No rhonchi or wheeze. Extremities: No edema. A/P: Agree with above AP history, physical exam, assessment and plan. 77-year-old patient admitted with acute hypoxic and hypercapnic respiratory alina prateek. Received IV diuresis 04/06/2022 with subsequent azotemia suggesting intravascular volume depletion. Diuretic therapy discontinued 04/07/2022 with improvement of renal function. Lisinopril restarted yesterday 04/08/2022. Topical nitrates discontinued continue amlodipine and Toprol-XL. Repeat BMP in a.m. Subjective 77 year old male admitted with hypoxic respiratory failure, declining mentation and mobility at home. Findings reflect significant hypertension on admission. No acute EKG changes or changes in echocardiogram. Was transiently treated for diastolic CHF, IV diuretics continued for 24 hrs. Decline in renal function 04/07- diuretics and ACEi held. Improvement in renal function 04/08- ACEi restarted. Repeat scr this morning was 1.49 (previously 1.37 and prior 1.64) Chart/Telemetry reviewed patient examined at bedside. Patient resting comfortably in the recliner. No acute concerns. No chest pain, shortness of breath, palpitations, head ache, or lower extremity edema. Upon exam patient found to have a large bump on the left side of his tongue, purple in color- no pain. unknown duration of bump, cyst-like. denies a history of smoking or smokeless tobacco, no history of oral cancer. Tele: SR 60s Weight: 119.3 kg >> 111.1 kg Review of Systems Review of Systems: All systems reviewed & are unremarkable except as noted in HPI & below Physical Exam Constitutional: well nourished and + obese; no acute distress Eyes: PERRL, conjunctivae normal, anicteric sclerae Neck: normal visual inspection and trachea midline Respiratory: normal respiratory effort and able to speak in complete sentences; no cough Auscultation: lungs clear to auscultation bilaterally; no rales, no rhonchi and no wheezes Cardiovascular: Rate/Rhythm: regular rate and regular rhythm Heart Sounds: normal S1 and normal S2; no murmur Vessels: normal peripheral pulses; no JVD (difficult to assess due to body habitis) Extremities: + edema (trace BLLE edema) Gastrointestinal (Abdomen): Percussion/Palpation: abdomen soft; abdomen nontender Skin: no rashes, warm and dry Psychiatric: Orientation: alert, oriented x 3 and cooperative Affect: euthymic affect Results & Data ([facility]) Vital Signs (Past 12 Hours) Vital Signs Temp Pulse Pulse Resp BP Pulse Ox 04/09/22 07:13 68 18 96 04/09/22 03:30 36.4 C L 68 18 158/78 H 96 04/09/22 03:20 64 13 96 04/08/22 23:56 73 19 96 04/08/22 23:34 75 04/08/22 23:26 36.7 C 69 18 143/76 H 96 04/08/22 22:47 75 18 95 Laboratory Results CBC 04/09/22 Range/Units 09:01 WBC 15.50 H (4.8-10.8) K/uL RBC 5.59 (4.7-6.1) M/uL Hgb 15.1 (14.0-18.0) g/dL Hct 47.8 (42-52) % Plt Count 303 (130-400) K/uL Comprehensive Metabolic Panel 04/09/22 Range/Units 09:01 Sodium 137 (136-145) mmol/L Potassium 4.1 (3.5-5.1) mmol/L Chloride 97 L (98-107) mmol/L Carbon Dioxide 32 (21-32) mmol/L BUN 51 H (6-23) mg/dl Creatinine 1.49 H (0.6-1.4) mg/dl Glucose 181 H (70-99(Fasting)) mg/dl Calcium 9.3 (8.5-10.1) mg/dl Intake and Output 04/08/22 04/09/22 04/09/22 22:59 06:59 14:59 Intake Total 570 / 720 150 / 720 Balance 570 / 720 150 / 720 Intake: Oral 570 / 720 150 / 720 Other: # Urine Diapers 1 2 # Bowel Movement Diapers 1
[2022-04-09] MEDS: PARoxetine HCL 20 MG TAB PO SCH (08:14)
[2022-04-09] MEDS: METOPROLOL SUCC 50MG EXT REL TAB PO SCH (08:14)
[2022-04-09] MEDS: ASPIRIN 81 MG ECTAB PO SCH (08:14)
[2022-04-09] MEDS: lisinopril 5 MG TAB PO SCH (08:15)
[2022-04-09] MEDS: amLODIPine BESYLATE 5 MG TAB PO SCH (08:15)
[2022-04-09] MEDS: INSULIN ASPART PER UNIT SC SCH ×4 (08:16→21:31)
[2022-04-09 09:40] LABS: Hematocrit (blood only) 47.8 % (42-52); Hemoglobin 15.1 g/dL (14.0-18.0); Mean Corpuscular Hgb Conc 31.6 g/dL (32-36); Mean Corpuscular Volume 85.5 fL (80-100); Platelet Count 303 K/uL (130-400); RDW Coefficient of Variation 16.9 % (11.5-14.5); RDW Standard Deviation 52.1 fL (36.4-46.3); Red Blood Count 5.59 M/uL (4.7-6.1)
[2022-04-09 09:52] LABS: BUN Creatinine Ratio 34.2 (10-20); Calcium 9.3 mg/dl (8.5-10.1); Creatinine Clr Calc Pharmacy 50.1 ml/min; Est GFR (African American) 52.5 ml/min; Est GFR (Non-African American) 45.3 ml/min; Magnesium 2.2 mg/dl (1.7-2.4); Phosphorus 3.3 mg/dl (2.5-4.9); Potassium 4.1 mmol/L (3.5-5.1)
[2022-04-09] MEDS: FERROUS SULFATE 325 MG TAB PO SCH (12:22)
--- NOTE | 2022-04-09 12:52 | Hospitalist Progress Note ---
Date of Service April 09, 2022 Assessment & Plan (1) Respiratory failure with hypoxia and hypercapnia: (2) Acute metabolic encephalopathy: (3) Acute kidney injury superimposed on CKD: (4) Chronic heart failure with preserved ejection fraction (HFpEF): (5) Poorly-controlled hypertension: Plan: Mr Eduardo Muse is a 77 year old non smoker, history of morbid obesity, RENE on CPAP, on chronic 2L home oxygen, chronic diastolic CHF was brought to the ER on the night of 04/05 due to unresponsiveness in the setting of increasing somnolence. Upon EMS arrival he was not wearing his oxygen and oxygen saturation was in the 40s on room air. He was placed on CPAP then BIPAP once he arrived to the hospital. He has since been weaned to 2L NC. 1. Acute metabolic encephalopathy -due to hypercarbia which has now resolved 2. Acute on chronic hypercapnic and hypoxic respiratory failure -VBG on admission:pH 7.2, pCO2- 70, HCO3- 34 -Repeat ABG on BIPAP- pH 7.39, pCO2- 48, HCO3- 29, 96 % on FIO2- 30% -He was seen by Pulmonology, appreciate input. With his non smoking history, it is unlikely he has significant underlying COPD. Last PFTs from 2006 indicate restrictive lung disease, possibly related to his body habitus. He should maintain PAP treatment at nighttime and have repeat PFTs after discharge. He may also need to repeat sleep study -s/p prednisone then solumedrol, now discontinued 3. Acute on chronic diastolic CHF -CT chest shows increased interstitial edema and bilateral pleural effusion -he is on torsemide 20mg daily although compliance is questionable. He was s/p Lasix 40mg IV BID x 3 doses. Further doses have been held due to SUKUMAR. currently he appears euvolemic -TTE 04/06 shows grade 2 diastolic dysfunction, EF 65-70%, mod concentric LVH -Appreciate Cardiology input Per cardiology - restarted lisinopril 5 mg daily, stopped topical nitrate, continue metoprolol, continue amlodipine, repeat BMP am 4. Leukocytosis -Initially there was concern for pneumonia, he was on doxycycline and zosyn. Further antibiotics have been discontinued. Will monitor off antibiotics. Pro calcitonin 0.53 -likely stress and steroid induced -blood cultures so far negative. Urine culture negative -WBC down to 15,000 5. Poorly controlled HTN -At home, he was on lisinopril 5mg daily and metoprolol XL 100mg daily -Lisinopril has been held due to SUKUMAR, continued toprol 100mg daily. Added amlodipine 5mg daily, PRN hydralazine for SBP > 180 Now restarted lisinopril, as renal function was back to baseline 6. SUKUMAR on CKD 3 -held lisinopril and further doses of lasix -Lisinopril now restarted -Check BMP a.m. Disposition -from home, lives with . Evaluated by PT and rehab is recommended. Plan to discharge [facility]. Admission and Anticipated Discharge Date Admission Date: April 06, 2022 Subjective Patient seen in follow-up of hypoxic, hypercarbic respiratory failure, encephalopathy, CHF exacerbation Currently patient is sitting up in chair, in no acute distress, using 2 L of oxygen via nasal cannula, which is his baseline Patient's updated at the bedside yesterday Patient was ambulating with a walker to the bathroom Currently patient denies any chest pain, shortness of breath, palpitations, fevers, chills, abdominal pain, nausea or vomiting Review of Systems Review of Systems: All systems reviewed & are unremarkable except as noted in Subjective Physical Exam Physical Exam: Physical Exam: + chronically ill appearing, no acut e distress, sittin g in chair in NAD on 2L of O2 Respiratory: CTAB, No wheezing/ rhonchi/rales Cardiovascular:L regular rate and r hythm, no murmurs/ rubs/gallops Gastrointestinal ( Abdomen): soft, non tender, increased abdomina l girth Musculoskeletal: No edema Neurologic: awake, spontaneous ly moving extremit ies Results & Data Results & Data ([facility]) Vital Signs (Past 12 Hours) Vital Signs Temp Pulse Pulse Resp BP Pulse Ox 04/09/22 12:25 72 19 98 04/09/22 12:24 36.8 C 73 18 150/90 H 97 04/09/22 08:07 36.4 C L 76 18 122/71 98 04/09/22 07:13 68 18 96 04/09/22 03:30 36.4 C L 68 18 158/78 H 96 04/09/22 03:20 64 13 96 Laboratory Results 04/09/22 04/09/22 04/09/22 Range/Units 11:34 09:01 09:01 WBC 15.50 H (4.8-10.8) K/uL RBC 5.59 (4.7-6.1) M/uL Hgb 15.1 (14.0-18.0) g/dL Hct 47.8 (42-52) % MCV 85.5 (80-100) fL MCH 27.0 (25-34) pg MCHC 31.6 L (32-36) g/dL RDW Std Deviation 52.1 H (36.4-46.3) fL RDW Coeff of Alfonso 16.9 H (11.5-14.5) % Plt Count 303 (130-400) K/uL MPV 9.0 (7.4-10.4) fL Sodium 137 (136-145) mmol/L Potassium 4.1 (3.5-5.1) mmol/L Chloride 97 L (98-107) mmol/L Carbon Dioxide 32 (21-32) mmol/L Anion Gap 8 (3-11) BUN 51 H (6-23) mg/dl Creatinine 1.49 H (0.6-1.4) mg/dl Est Cr Clr Drug Dosing 50.1 ml/min Est GFR ( Amer) 52.5 ml/min Est GFR (Non-Af Amer) 45.3 ml/min BUN/Creatinine Ratio 34.2 H (10-20) Glucose 181 H (70-99(Fasting)) mg/dl POC Glucose 156 H (70-99) mg/dl Calcium 9.3 (8.5-10.1) mg/dl Phosphorus 3.3 (2.5-4.9) mg/dl Magnesium 2.2 (1.7-2.4) mg/dl 04/09/22 04/08/22 04/08/22 Range/Units 07:31 21:03 16:37 WBC (4.8-10.8) K/uL RBC (4.7-6.1) M/uL Hgb (14.0-18.0) g/dL Hct (42-52) % MCV (80-100) fL MCH (25-34) pg MCHC (32-36) g/dL RDW Std Deviation (36.4-46.3) fL RDW Coeff of Alfonso (11.5-14.5) % Plt Count (130-400) K/uL MPV (7.4-10.4) fL Sodium (136-145) mmol/L Potassium (3.5-5.1) mmol/L Chloride (98-107) mmol/L Carbon Dioxide (21-32) mmol/L Anion Gap (3-11) BUN (6-23) mg/dl Creatinine (0.6-1.4) mg/dl Est Cr Clr Drug Dosing ml/min Est GFR ( Amer) ml/min Est GFR (Non-Af Amer) ml/min BUN/Creatinine Ratio (10-20) Glucose (70-99(Fasting)) mg/dl POC Glucose 123 H 142 H 120 H (70-99) mg/dl Calcium (8.5-10.1) mg/dl Phosphorus (2.5-4.9) mg/dl Magnesium (1.7-2.4) mg/dl Medications Administered Current Inpatient Medications Acetaminophen (Acetaminophen 325 Mg Tab) 650 mg PO Q4H PRN PRN Reason: Pain or Fever Stop: 05/06/22 02:46 Allopurinol (Allopurinol 300 Mg Tab) 300 mg PO [facility] Stop: 05/06/22 20:59 Last Admin: 04/08/22 20:28 Dose: 300 mg Documented by: Amlodipine Besylate (Amlodipine Besylate 5 Mg Tab) 5 mg PO DAILY [facility] Stop: 05/07/22 16:59 Last Admin: 04/09/22 08:15 Dose: 5 mg Documented by: Aspirin (Aspirin 81 Mg Ectab) 81 mg PO QAM [facility] Stop: 05/06/22 08:59 Last Admin: 04/09/22 08:14 Dose: 81 mg Documented by: Atorvastatin Calcium (Atorvastatin 40 Mg Tab) 40 mg PO HS [facility] Stop: 05/06/22 20:59 Last Admin: 04/08/22 20:28 Dose: 40 mg Documented by: Dextrose (Dextrose 50% 50 Ml Syringe) 25 - 50 ml IV UD PRN; Protocol PRN Reason: Hypoglycemia Protocol Stop: 05/06/22 02:46 Ferrous Sulfate (Ferrous Sulfate 325 Mg Tab) 325 mg PO Q24H [facility] Stop: 05/06/22 11:59 Last Admin: 04/09/22 12:22 Dose: 325 mg Documented by: Glucagon (Glucagon For Inj 1 Mg Vial) 1 mg SQ UD PRN; Protocol PRN Reason: Hypoglycemia Protocol Stop: 05/06/22 02:46 Glucose (Glucose 10 Tabs/Tube) 4 - 8 tabs PO UD PRN; Protocol PRN Reason: Hypoglycemia Protocol Stop: 05/06/22 02:46 Glucose (Glucose 40% Gel 15 Gm Tube) 15 - 30 gm PO UD PRN; Protocol PRN Reason: Hypoglycemia Protocol Stop: 05/06/22 02:46 Heparin Sodium (Porcine) (Heparin Sod 5,000 Unit/0.5 Ml Vial) 5,000 units SQ Q8 [facility] Stop: 05/06/22 05:59 Last Admin: 04/09/22 05:02 Dose: 5,000 units Documented by: Hydralazine HCl (Hydralazine Hcl 20 Mg/Ml Vial) 10 mg IV Q6 PRN PRN Reason: blood pressure Stop: 05/07/22 16:30 Insulin Aspart (Insulin Aspart Per Unit) 0 units SC ACHS [facility] Stop: 05/06/22 16:29 Last Admin: 04/09/22 12:21 Dose: 4 units Documented by: Insulin Glargine (Insulin Glargine Solostar 100 Units/Ml 3 Ml Pen) 10 units SC HS [facility] Stop: 05/06/22 20:59 Last Admin: 04/08/22 21:18 Dose: 10 units Documented by: Ipratropium [place] (Ipratropium [place] Neb Soln 0.02% 2.5 Ml Vial) 0.5 mg INH Q6R [facility] Stop: 05/06/22 06:59 Last Admin: 04/09/22 12:25 Dose: 0.5 mg Documented by: Levalbuterol HCl (Levalbuterol 1.25mg/0.5ml Neb) 1.25 mg INH Q6R [facility] Stop: 05/06/22 06:59 Last Admin: 04/09/22 12:25 Dose: 1.25 mg Documented by: Lisinopril (Lisinopril 5 Mg Tab) 5 mg PO QAM [facility] Stop: 05/06/22 11:29 Last Admin: 04/09/22 08:15 Dose: 5 mg Documented by: Metoprolol Succinate (Metoprolol Succ 50mg Ext Rel Tab) 100 mg PO DAILY [facility] Stop: 05/07/22 04:09 Last Admin: 04/09/22 08:14 Dose: 100 mg Documented by: Miscellaneous (Carbohydrates For Hypoglycemia ) 15 - 30 gm PO UD PRN PRN Reason: Hypoglycemia Protocol Stop: 05/06/22 02:46 Nitroglycerin (Nitroglycerin Sl 0.4 Mg/Tab Tab) 0.4 mg SL UD PRN PRN Reason: Chest Pain Stop: 05/06/22 02:46 Paroxetine HCl (Paroxetine Hcl 20 Mg Tab) 40 mg PO [facility] Stop: 05/06/22 08:59 Last Admin: 04/09/22 08:14 Dose: 40 mg Documented by:
[2022-04-09] MEDS: INSULIN GLARGINE SOLOSTAR 100 UNITS/ML 3 ML PEN SC SCH (21:29)
[2022-04-09] MEDS: allopurinoL 300 MG TAB PO SCH (21:30)
[2022-04-09] MEDS: ATORVASTATIN 40 MG TAB PO SCH (21:30)
[2022-04-10] MEDS: LEVALBUTEROL 1.25MG/0.5ML NEB INH SCH ×4 (00:26→19:36)
[2022-04-10] MEDS: IPRATROPIUM BROMIDE NEB SOLN 0.02% 2.5 ML VIAL INH SCH ×4 (00:27→19:36)
[2022-04-10] MEDS: HEPARIN SOD 5,000 UNIT/0.5 ML VIAL SQ SCH ×3 (05:36→20:51)
[2022-04-10 06:44] LABS: Hematocrit (blood only) 44.6 % (42-52); Hemoglobin 14.2 g/dL (14.0-18.0); Mean Corpuscular Hgb Conc 31.8 g/dL (32-36); Platelet Count 271 K/uL (130-400); RDW Coefficient of Variation 16.8 % (11.5-14.5); RDW Standard Deviation 51.5 fL (36.4-46.3); Red Blood Count 5.25 M/uL (4.7-6.1); White Blood Count 13.77 K/uL (4.8-10.8)
[2022-04-10] MEDS ORDERED: LEVALBUTEROL HCL 1.25 MG/3 ML NEB ONE ×2 (07:10→13:32)
[2022-04-10 07:24] LABS: Anion Gap 7 (3-11); BUN Creatinine Ratio 35.3 (10-20); Blood Urea Nitrogen 48 mg/dl (6-23); Calcium 8.9 mg/dl (8.5-10.1); Carbon Dioxide 30 mmol/L (21-32); Chloride 100 mmol/L (98-107); Creatinine Clr Calc Pharmacy 55.4 ml/min; Est GFR (African American) 58.6 ml/min; Est GFR (Non-African American) 50.5 ml/min; Glucose 108 mg/dl (70-99(Fasting)); Magnesium 2.3 mg/dl (1.7-2.4); Phosphorus 3.4 mg/dl (2.5-4.9); Sodium 137 mmol/L (136-145)
--- NOTE | 2022-04-10 07:56 | Cardiology Progress Note ---
Date of Service April 10, 2022 Assessment & Plan (1) Chronic heart failure with preserved ejection fraction (HFpEF): (2) Chronic right-sided congestive heart failure: (3) Hypertension: (4) CAD (coronary artery disease): (5) Acute hypoxemic respiratory failure: (6) COPD (chronic obstructive pulmonary disease): (7) Encephalopathy: Plan: 77 year old male admitted with acute hypoxic and hypercapnic respiratory failure. Received IV diuresis 04/06/2022 with subsequent azotemia suggesting intravascular volume depletion. Diuretic therapy discontinued 04/07/2022 with improvement of renal function. Norvasc 5 mg daily started 04/07 Lisinopril restarted yesterday 04/08/2022. Topical nitrates discontinued 04/08 Hypertensive yesterday and into this am- will transition patient from metoprolol succinate 100 mg daily to Coreg 12.5 mg BID for better BP management. Patient euvolemic on exam. Recommend restarting home dose of Torsemide 20 mg daily at discharge. Will need BMP in 1 week following discharge. PAP with O2 supplement qHS with O2 use during day as ordered. Echo showed LVEF 65-70%, grade II diastolic dysfunction, mild inferior wall hypokinesis, Mild aortic sclerosis- no stenosis. Mild MR and TR. Presumed CAD, last echo 03/2019- There is a moderate sized septal, inferior, and posterior wall motion abnormality with akinesis of the segments. Given lack of angina symptoms will continue to medically manage. Case discussed with Dr. Romo- will follow. Admission and Anticipated Discharge Date Admission Date: April 06, 2022 Supervising Physician Co-Signing Physician Notes I have seen and examined the patient. I reviewed the medical record and discussed the case with the nurse practitioner. I agree with the changes to the blood pressure medication as well as diuretics. The patient is progressing. Subjective 77 year old male admitted with hypoxic respiratory failure, declining mentation and mobility at home. Findings reflect significant hypertension on admission. No acute EKG changes or changes in echocardiogram. Was transiently treated for diastolic CHF, IV diuretics continued for 24 hrs. Decline in renal function 04/07- diuretics and ACEi held. Improvement in renal function 04/08- ACEi restarted. Chart/Telemetry reviewed patient examined at bedside. Patient resting comfortably in bed. No acute concerns. Eager for discharge. No chest pain, shortness of breath, palpitations, head ache, or lower extremity edema. Tele: SR 70-80s Weight: 119.3 kg >> 111.1 kg Review of Systems Review of Systems: All systems reviewed & are unremarkable except as noted in HPI & below Physical Exam Constitutional: well nourished and + obese; no acute distress Eyes: PERRL, conjunctivae normal, anicteric sclerae Neck: normal visual inspection and trachea midline Respiratory: normal respiratory effort and able to speak in complete sentences; no cough Auscultation: lungs clear to auscultation bilaterally; no rales, no rhonchi and no wheezes Cardiovascular: Rate/Rhythm: regular rate and regular rhythm Heart Sounds: normal S1 and normal S2; no murmur Vessels: normal peripheral pulses; no JVD (difficult to assess due to body habitis) Extremities: + edema (trace BLLE edema) Gastrointestinal (Abdomen): Percussion/Palpation: abdomen soft; abdomen nontender Skin: no rashes, warm and dry Psychiatric: Orientation: alert, oriented x 3 and cooperative Affect: euthymic affect Results & Data ([facility]) Vital Signs (Past 12 Hours) Vital Signs Temp Pulse Pulse Resp BP BP Pulse Ox 04/10/22 07:30 36.6 C 78 16 176/99 H 96 04/10/22 07:14 76 18 96 04/10/22 03:55 67 15 95 04/10/22 03:22 36.8 C 69 16 151/93 H 95 04/10/22 00:28 71 20 96 04/10/22 00:14 70 04/09/22 23:15 35 C L 72 16 189/98 H 96 04/09/22 21:00 74 18 97 Laboratory Results CBC 04/09/22 04/10/22 Range/Units 09:01 06:05 WBC 15.50 H 13.77 H (4.8-10.8) K/uL RBC 5.59 5.25 (4.7-6.1) M/uL Hgb 15.1 14.2 (14.0-18.0) g/dL Hct 47.8 44.6 (42-52) % Plt Count 303 271 (130-400) K/uL Comprehensive Metabolic Panel 04/09/22 04/10/22 Range/Units 09:01 06:05 Sodium 137 137 (136-145) mmol/L Potassium 4.1 TNP (3.5-5.1) mmol/L Chloride 97 L 100 (98-107) mmol/L Carbon Dioxide 32 30 (21-32) mmol/L BUN 51 H 48 H (6-23) mg/dl Creatinine 1.49 H 1.36 (0.6-1.4) mg/dl Glucose 181 H 108 H (70-99(Fasting)) mg/dl Calcium 9.3 8.9 (8.5-10.1) mg/dl Intake and Output 04/09/22 04/10/22 04/10/22 22:59 06:59 14:59 Intake Total 200 / 200 Output Total Balance 199 / 198 - Intake: Oral 200 / 200 Output: # Bowel Movements Other: # Unmeasured Voids 1 1 Weight 113.1 kg Weight Measurement Method Built in [facility]
[2022-04-10] MEDS: lisinopril 5 MG TAB PO SCH (08:07)
[2022-04-10] MEDS: PARoxetine HCL 20 MG TAB PO SCH (08:07)
[2022-04-10] MEDS: amLODIPine BESYLATE 5 MG TAB PO SCH (08:07)
[2022-04-10] MEDS: METOPROLOL SUCC 50MG EXT REL TAB PO SCH (08:08)
[2022-04-10] MEDS: INSULIN ASPART PER UNIT SC SCH ×4 (08:08→20:54)
[2022-04-10] MEDS: ASPIRIN 81 MG ECTAB PO SCH (08:08)
--- NOTE | 2022-04-10 09:55 | Hospitalist Progress Note ---
Date of Service April 10, 2022 Assessment & Plan (1) Respiratory failure with hypoxia and hypercapnia: (2) Acute metabolic encephalopathy: (3) Acute kidney injury superimposed on CKD: (4) Chronic heart failure with preserved ejection fraction (HFpEF): (5) Poorly-controlled hypertension: Plan: Mr Eduardo Muse is a 77 year old non smoker, history of morbid obesity, RENE on CPAP, on chronic 2L home oxygen, chronic diastolic CHF was brought to the ER on the night of 04/05 due to unresponsiveness in the setting of increasing somnolence. Upon EMS arrival he was not wearing his oxygen and oxygen saturation was in the 40s on room air. He was placed on CPAP then BIPAP once he arrived to the hospital. He has since been weaned to 2L NC. 1. Acute metabolic encephalopathy -due to hypercarbia which has now resolved 2. Acute on chronic hypercapnic and hypoxic respiratory failure -VBG on admission:pH 7.2, pCO2- 70, HCO3- 34 -Repeat ABG on BIPAP- pH 7.39, pCO2- 48, HCO3- 29, 96 % on FIO2- 30% -He was seen by Pulmonology, appreciate input. With his non smoking history, it is unlikely he has significant underlying COPD. Last PFTs from 2006 indicate restrictive lung disease, possibly related to his body habitus. He should maintain PAP treatment at nighttime and have repeat PFTs after discharge. He may also need to repeat sleep study -s/p prednisone then solumedrol, now discontinued 3. Acute on chronic diastolic CHF -CT chest shows increased interstitial edema and bilateral pleural effusion -he is on torsemide 20mg daily although compliance is questionable. He was s/p Lasix 40mg IV BID x 3 doses. Further doses have been held due to SUKUMAR. currently he appears euvolemic -TTE 04/06 shows grade 2 diastolic dysfunction, EF 65-70%, mod concentric LVH -Appreciate Cardiology input Per cardiology - restarted lisinopril 5 mg daily, stopped topical nitrate, continue metoprolol, continue amlodipine, repeat BMP am Blood pressure still poorly controlled, metoprolol succinate was changed to Coreg 4. Leukocytosis -Initially there was concern for pneumonia, he was on doxycycline and zosyn. Further antibiotics have been discontinued. Will monitor off antibiotics. Procalcitonin 0.53 -likely stress and steroid induced -blood cultures negative. Urine culture negative -WBC down to 14,000 5. Poorly controlled HTN -At home, he was on lisinopril 5mg daily and metoprolol XL 100mg daily -Lisinopril has been held due to SUKUMAR, continued toprol 100mg daily. Added amlodipine 5mg daily, PRN hydralazine for SBP > 180 Now restarted lisinopril, as renal function was back to baseline BP still poorly controlled, metoprolol succinate was changed to Coreg 6. SUKUMAR on CKD 3 -held lisinopril and further doses of lasix -Lisinopril now restarted -monitor BMP Disposition -from home, lives with . Evaluated by PT and rehab is recommended. Plan to discharge to [facility]. Admission and Anticipated Discharge Date Admission Date: April 06, 2022 Subjective Patient seen in follow-up of hypoxic, hypercarbic respiratory failure, encephalopathy, CHF exacerbation Currently patient is sitting up in chair, in no acute distress, using 2 L of oxygen via nasal cannula, which is his baseline Patient's updated at the bedside Patient was ambulating with a walker to the bathroom Currently patient denies any chest pain, shortness of breath, palpitations, fevers, chills, abdominal pain, nausea or vomiting BP still poorly controlled, metoprolol succinate changed to Coreg by cardiology Review of Systems Review of Systems: All systems reviewed & are unremarkable except as noted in Subjective Physical Exam Physical Exam: Physical Exam: + chronically ill appearing, no acut e distress, sittin g in chair in NAD on 2L of O2 Respiratory: CTAB, No wheezing/ rhonchi/rales Cardiovascular:L regular rate and r hythm, no murmurs/ rubs/gallops Gastrointestinal ( Abdomen): soft, non tender, increased abdomina l girth Musculoskeletal: No edema Neurologic: awake, spontaneous ly moving extremit ies Results & Data Results & Data ([facility]) Vital Signs (Past 12 Hours) Vital Signs Temp Pulse Pulse Resp BP BP Pulse Ox 04/10/22 07:30 36.6 C 78 16 176/99 H 96 04/10/22 07:14 76 18 96 04/10/22 03:55 67 15 95 04/10/22 03:22 36.8 C 69 16 151/93 H 95 04/10/22 00:28 71 20 96 04/10/22 00:14 70 04/09/22 23:15 35 C L 72 16 189/98 H 96 Laboratory Results 04/10/22 04/10/22 04/10/22 Range/Units 08:01 07:28 06:05 WBC 13.77 H (4.8-10.8) K/uL RBC 5.25 (4.7-6.1) M/uL Hgb 14.2 (14.0-18.0) g/dL Hct 44.6 (42-52) % MCV 85.0 (80-100) fL MCH 27.0 (25-34) pg MCHC 31.8 L (32-36) g/dL RDW Std Deviation 51.5 H (36.4-46.3) fL RDW Coeff of Alfonso 16.8 H (11.5-14.5) % Plt Count 271 (130-400) K/uL MPV 9.0 (7.4-10.4) fL Sodium (136-145) mmol/L Potassium 3.8 Chloride (98-107) mmol/L Carbon Dioxide (21-32) mmol/L Anion Gap (3-11) BUN (6-23) mg/dl Creatinine (0.6-1.4) mg/dl Est Cr Clr Drug Dosing ml/min Est GFR ( Amer) ml/min Est GFR (Non-Af Amer) ml/min BUN/Creatinine Ratio (10-20) Glucose (70-99(Fasting)) mg/dl POC Glucose 123 H (70-99) mg/dl Calcium (8.5-10.1) mg/dl Phosphorus (2.5-4.9) mg/dl Magnesium (1.7-2.4) mg/dl 04/10/22 04/09/22 04/09/22 Range/Units 06:05 19:48 16:38 WBC (4.8-10.8) K/uL RBC (4.7-6.1) M/uL Hgb (14.0-18.0) g/dL Hct (42-52) % MCV (80-100) fL MCH (25-34) pg MCHC (32-36) g/dL RDW Std Deviation (36.4-46.3) fL RDW Coeff of Alfonso (11.5-14.5) % Plt Count (130-400) K/uL MPV (7.4-10.4) fL Sodium 137 (136-145) mmol/L Potassium TNP Chloride 100 (98-107) mmol/L Carbon Dioxide 30 (21-32) mmol/L Anion Gap 7 (3-11) BUN 48 H (6-23) mg/dl Creatinine 1.36 (0.6-1.4) mg/dl Est Cr Clr Drug Dosing 55.4 ml/min Est GFR ( Amer) 58.6 ml/min Est GFR (Non-Af Amer) 50.5 ml/min BUN/Creatinine Ratio 35.3 H (10-20) Glucose 108 H (70-99(Fasting)) mg/dl POC Glucose 143 H 111 H (70-99) mg/dl Calcium 8.9 (8.5-10.1) mg/dl Phosphorus 3.4 (2.5-4.9) mg/dl Magnesium 2.3 (1.7-2.4) mg/dl 04/09/22 Range/Units 11:34 WBC (4.8-10.8) K/uL RBC (4.7-6.1) M/uL Hgb (14.0-18.0) g/dL Hct (42-52) % MCV (80-100) fL MCH (25-34) pg MCHC (32-36) g/dL RDW Std Deviation (36.4-46.3) fL RDW Coeff of Alfonso (11.5-14.5) % Plt Count (130-400) K/uL MPV (7.4-10.4) fL Sodium (136-145) mmol/L Potassium Chloride (98-107) mmol/L Carbon Dioxide (21-32) mmol/L Anion Gap (3-11) BUN (6-23) mg/dl Creatinine (0.6-1.4) mg/dl Est Cr Clr Drug Dosing ml/min Est GFR ( Amer) ml/min Est GFR (Non-Af Amer) ml/min BUN/Creatinine Ratio (10-20) Glucose (70-99(Fasting)) mg/dl POC Glucose 156 H (70-99) mg/dl Calcium (8.5-10.1) mg/dl Phosphorus (2.5-4.9) mg/dl Magnesium (1.7-2.4) mg/dl Medications Administered Current Inpatient Medications Acetaminophen (Acetaminophen 325 Mg Tab) 650 mg PO Q4H PRN PRN Reason: Pain or Fever Stop: 05/06/22 02:46 Allopurinol (Allopurinol 300 Mg Tab) 300 mg PO HS [facility] Stop: 05/06/22 20:59 Last Admin: 04/09/22 21:30 Dose: 300 mg Documented by: Amlodipine Besylate (Amlodipine Besylate 5 Mg Tab) 5 mg PO DAILY [facility] Stop: 05/07/22 16:59 Last Admin: 04/10/22 08:07 Dose: 5 mg Documented by: Aspirin (Aspirin 81 Mg Ectab) 81 mg PO QAM [facility] Stop: 05/06/22 08:59 Last Admin: 04/10/22 08:08 Dose: 81 mg Documented by: Atorvastatin Calcium (Atorvastatin 40 Mg Tab) 40 mg PO HS [facility] Stop: 05/06/22 20:59 Last Admin: 04/09/22 21:30 Dose: 40 mg Documented by: Dextrose (Dextrose 50% 50 Ml Syringe) 25 - 50 ml IV UD PRN; Protocol PRN Reason: Hypoglycemia Protocol Stop: 05/06/22 02:46 Ferrous Sulfate (Ferrous Sulfate 325 Mg Tab) 325 mg PO Q24H [facility] Stop: 05/06/22 11:59 Last Admin: 04/09/22 12:22 Dose: 325 mg Documented by: Glucagon (Glucagon For Inj 1 Mg Vial) 1 mg SQ UD PRN; Protocol PRN Reason: Hypoglycemia Protocol Stop: 05/06/22 02:46 Glucose (Glucose 10 Tabs/Tube) 4 - 8 tabs PO UD PRN; Protocol PRN Reason: Hypoglycemia Protocol Stop: 05/06/22 02:46 Glucose (Glucose 40% Gel 15 Gm Tube) 15 - 30 gm PO UD PRN; Protocol PRN Reason: Hypoglycemia Protocol Stop: 05/06/22 02:46 Heparin Sodium (Porcine) (Heparin Sod 5,000 Unit/0.5 Ml Vial) 5,000 units SQ Q8 [facility] Stop: 05/06/22 05:59 Last Admin: 04/10/22 05:36 Dose: 5,000 units Documented by: Hydralazine HCl (Hydralazine Hcl 20 Mg/Ml Vial) 10 mg IV Q6 PRN PRN Reason: blood pressure Stop: 05/07/22 16:30 Insulin Aspart (Insulin Aspart Per Unit) 0 units SC ACHS [facility] Stop: 05/06/22 16:29 Last Admin: 04/10/22 08:08 Dose: 4 units Documented by: Insulin Glargine (Insulin Glargine Solostar 100 Units/Ml 3 Ml Pen) 10 units SC HS [facility] Stop: 05/06/22 20:59 Last Admin: 04/09/22 21:29 Dose: 10 units Documented by: Ipratropium [place] (Ipratropium [place] Neb Soln 0.02% 2.5 Ml Vial) 0.5 mg INH Q6R [facility] Stop: 05/06/22 06:59 Last Admin: 04/10/22 07:12 Dose: 0.5 mg Documented by: Levalbuterol HCl (Levalbuterol 1.25mg/0.5ml Neb) 1.25 mg INH Q6R [facility] Stop: 05/06/22 06:59 Last Admin: 04/10/22 07:12 Dose: Not Given Documented by: Lisinopril (Lisinopril 5 Mg Tab) [facility] [place] Stop: 05/06/22 11:29 Last Admin: 04/10/22 08:07 Dose: 5 mg Documented by: Metoprolol Succinate (Metoprolol Succ 50mg Ext Rel Tab) 100 mg PO DAILY [facility] Stop: 05/07/22 04:09 Last Admin: 04/10/22 08:08 Dose: 100 mg Documented by: Miscellaneous (Carbohydrates For Hypoglycemia ) 15 - 30 gm PO UD PRN PRN Reason: Hypoglycemia Protocol Stop: 05/06/22 02:46 Nitroglycerin (Nitroglycerin Sl 0.4 Mg/Tab Tab) 0.4 mg SL UD PRN PRN Reason: Chest Pain Stop: 05/06/22 02:46 Paroxetine HCl (Paroxetine Hcl 20 Mg Tab) 40 mg PO QAM [facility] Stop: 05/06/22 08:59 Last Admin: 04/10/22 08:07 Dose: 40 mg Documented by:
[2022-04-10] MEDS: FERROUS SULFATE 325 MG TAB PO SCH (12:24)
[2022-04-10] MEDS: allopurinoL 300 MG TAB PO SCH (20:51)
[2022-04-10] MEDS: ATORVASTATIN 40 MG TAB PO SCH (20:51)
[2022-04-10] MEDS: INSULIN GLARGINE SOLOSTAR 100 UNITS/ML 3 ML PEN SC SCH (20:52)
[2022-04-10] MEDS ORDERED: carvediloL 12.5 MG TAB PO SCH (21:00)
[2022-04-11] MEDS: LEVALBUTEROL 1.25MG/0.5ML NEB INH SCH ×4 (00:04→19:07)
[2022-04-11] MEDS: IPRATROPIUM BROMIDE NEB SOLN 0.02% 2.5 ML VIAL INH SCH ×4 (00:04→19:07)
[2022-04-11] MEDS: HEPARIN SOD 5,000 UNIT/0.5 ML VIAL SQ SCH ×3 (06:09→20:16)
[2022-04-11 06:48] LABS: BUN Creatinine Ratio 33.1 (10-20); Creatinine Clr Calc Pharmacy 58.7 ml/min; Est GFR (African American) 63.6 ml/min; Est GFR (Non-African American) 54.9 ml/min; Potassium 4.2 mmol/L (3.5-5.1)
[2022-04-11] MEDS ORDERED: LEVALBUTEROL HCL 1.25 MG/3 ML NEB ONE ×2 (07:04→14:08)
[2022-04-11] MEDS: INSULIN ASPART PER UNIT SC SCH ×4 (08:18→20:16)
[2022-04-11] MEDS: ASPIRIN 81 MG ECTAB PO SCH (08:19)
[2022-04-11] MEDS: amLODIPine BESYLATE 5 MG TAB PO SCH (08:20)
[2022-04-11] MEDS: carvediloL 12.5 MG TAB PO SCH ×2 (08:20→20:16)
[2022-04-11] MEDS: PARoxetine HCL 20 MG TAB PO SCH (08:20)
[2022-04-11] MEDS: lisinopril 5 MG TAB PO SCH (08:20)
--- NOTE | 2022-04-11 10:03 | Hospitalist Progress Note ---
Date of Service April 11, 2022 Assessment & Plan (1) Respiratory failure with hypoxia and hypercapnia: (2) Acute metabolic encephalopathy: (3) Acute kidney injury superimposed on CKD: (4) Chronic heart failure with preserved ejection fraction (HFpEF): (5) Poorly-controlled hypertension: Plan: Mr Eduardo Muse is a 77 year old non smoker, history of morbid obesity, RENE on CPAP, on chronic 2L home oxygen, chronic diastolic CHF was brought to the ER on the night of 04/05 due to unresponsiveness in the setting of increasing somnolence. Upon EMS arrival he was not wearing his oxygen and oxygen saturation was in the 40s on room air. He was placed on CPAP then BIPAP once he arrived to the hospital. He has since been weaned to 2L NC. 1. Acute metabolic encephalopathy -due to hypercarbia which has now resolved 2. Acute on chronic hypercapnic and hypoxic respiratory failure -VBG on admission:pH 7.2, pCO2- 70, HCO3- 34 -Repeat ABG on BIPAP- pH 7.39, pCO2- 48, HCO3- 29, 96 % on FIO2- 30% -He was seen by Pulmonology, appreciate input. With his non smoking history, it is unlikely he has significant underlying COPD. Last PFTs from 2006 indicate restrictive lung disease, possibly related to his body habitus. He should maintain PAP treatment at nighttime and have repeat PFTs after discharge. He may also need to repeat sleep study -s/p prednisone then solumedrol, now discontinued 3. Acute on chronic diastolic CHF -CT chest shows increased interstitial edema and bilateral pleural effusion -he is on torsemide 20mg daily although compliance is questionable. He was s/p Lasix 40mg IV BID x 3 doses. Further doses have been held due to SUKUMAR. currently he appears euvolemic -TTE 04/06 shows grade 2 diastolic dysfunction, EF 65-70%, mod concentric LVH -Appreciate Cardiology input Per cardiology - restarted lisinopril 5 mg daily, stopped topical nitrate, continued metoprolol, continue amlodipine, repeat BMP am Blood pressure still poorly controlled, metoprolol succinate was changed to Coreg 4. Leukocytosis -Initially there was concern for pneumonia, he was on doxycycline and zosyn. Further antibiotics have been discontinued. Will monitor off antibiotics. Procalcitonin 0.53 -likely stress and steroid induced -blood cultures negative. Urine culture negative -WBC down to 14,000 5. Poorly controlled HTN -At home, he was on lisinopril 5mg daily and metoprolol XL 100mg daily -Lisinopril has been held due to SUKUMAR, continued toprol 100mg daily. Added amlodipine 5mg daily, PRN hydralazine for SBP > 180 Now restarted lisinopril, as renal function was back to baseline BP still poorly controlled, metoprolol succinate was changed to Coreg 6. SUKUMAR on CKD 3 -held lisinopril and further doses of lasix -Lisinopril now restarted -monitor BMP Disposition -from home, lives with . Evaluated by PT and rehab is recommended. Plan to discharge to [facility]. Admission and Anticipated Discharge Date Admission Date: April 06, 2022 Subjective Patient seen in follow-up of hypoxic, hypercarbic respiratory failure, encephalopathy, CHF exacerbation Currently patient is sitting up in chair, in no acute distress, using 2 L of oxygen via nasal cannula, which is his baseline Patient was ambulating with a walker to the bathroom Currently patient denies any chest pain, shortness of breath, palpitations, fevers, chills, abdominal pain, nausea or vomiting BP was poorly controlled, metoprolol succinate changed to Coreg by cardiology Patient feeling well, no new concerns Review of Systems Review of Systems: All systems reviewed & are unremarkable except as noted in Subjective Physical Exam Physical Exam: Physical Exam: + chronically ill appearing, no acut e distress, sittin g in chair in NAD on 2L of O2 Respiratory: CTAB, No wheezing/ rhonchi/rales Cardiovascular:L regular rate and r hythm, no murmurs/ rubs/gallops Gastrointestinal ( Abdomen): soft, non tender, increased abdomina l girth Musculoskeletal: No edema Neurologic: awake, spontaneous ly moving extremit ies Results & Data Results & Data ([facility]) Vital Signs (Past 12 Hours) Vital Signs Temp Pulse Pulse Resp BP BP Pulse Ox 04/11/22 07:24 36.8 C 82 18 175/96 H 98 04/11/22 06:14 88 04/11/22 03:00 36.9 C 83 18 179/91 H 95 04/11/22 00:08 173/93 H 04/11/22 00:04 85 18 95 04/10/22 23:00 36.8 C 87 22 96 Laboratory Results 04/11/22 04/11/22 04/10/22 Range/Units 07:22 05:55 20:47 Sodium 138 (136-145) mmol/L Potassium 4.2 (3.5-5.1) mmol/L Chloride 104 (98-107) mmol/L Carbon Dioxide 27 (21-32) mmol/L Anion Gap 7 (3-11) BUN 42 H (6-23) mg/dl Creatinine 1.27 (0.6-1.4) mg/dl Est Cr Clr Drug Dosing 58.7 ml/min Est GFR ( Amer) 63.6 ml/min Est GFR (Non-Af Amer) 54.9 ml/min BUN/Creatinine Ratio 33.1 H (10-20) Glucose 128 H (70-99(Fasting)) mg/dl POC Glucose 123 H 142 H (70-99) mg/dl Calcium 9.0 (8.5-10.1) mg/dl 04/10/22 04/10/22 Range/Units 16:39 11:31 Sodium (136-145) mmol/L Potassium (3.5-5.1) mmol/L Chloride (98-107) mmol/L Carbon Dioxide (21-32) mmol/L Anion Gap (3-11) BUN (6-23) mg/dl Creatinine (0.6-1.4) mg/dl Est Cr Clr Drug Dosing ml/min Est GFR ( Amer) ml/min Est GFR (Non-Af Amer) ml/min BUN/Creatinine Ratio (10-20) Glucose (70-99(Fasting)) mg/dl POC Glucose 138 H 162 H (70-99) mg/dl Calcium (8.5-10.1) mg/dl Medications Administered Current Inpatient Medications Acetaminophen (Acetaminophen 325 Mg Tab) 650 mg PO Q4H PRN PRN Reason: Pain or Fever Stop: 05/06/22 02:46 Allopurinol (Allopurinol 300 Mg Tab) 300 mg PO HS [facility] Stop: 05/06/22 20:59 Last Admin: 04/10/22 20:51 Dose: 300 mg Documented by: Amlodipine Besylate (Amlodipine Besylate 5 Mg Tab) 5 mg PO DAILY [facility] Stop: 05/07/22 16:59 Last Admin: 04/11/22 08:20 Dose: 5 mg Documented by: Aspirin (Aspirin 81 Mg Ectab) 81 mg PO QAM [facility] Stop: 05/06/22 08:59 Last Admin: 04/11/22 08:19 Dose: 81 mg Documented by: Atorvastatin Calcium (Atorvastatin 40 Mg Tab) 40 mg PO HS [facility] Stop: 05/06/22 20:59 Last Admin: 04/10/22 20:51 Dose: 40 mg Documented by: Carvedilol (Carvedilol 12.5 Mg Tab) 12.5 mg PO BID [facility] Stop: 05/11/22 08:59 Last Admin: 04/11/22 08:20 Dose: 12.5 mg Documented by: Dextrose (Dextrose 50% 50 Ml Syringe) 25 - 50 ml IV UD PRN; Protocol PRN Reason: Hypoglycemia Protocol Stop: 05/06/22 02:46 Ferrous Sulfate (Ferrous Sulfate 325 Mg Tab) 325 mg PO Q24H [facility] Stop: 05/06/22 11:59 Last Admin: 04/10/22 12:24 Dose: 325 mg Documented by: Glucagon (Glucagon For Inj 1 Mg Vial) 1 mg SQ UD PRN; Protocol PRN Reason: Hypoglycemia Protocol Stop: 05/06/22 02:46 Glucose (Glucose 10 Tabs/Tube) 4 - 8 tabs PO UD PRN; Protocol PRN Reason: Hypoglycemia Protocol Stop: 05/06/22 02:46 Glucose (Glucose 40% Gel 15 Gm Tube) 15 - 30 gm PO UD PRN; Protocol PRN Reason: Hypoglycemia Protocol Stop: 05/06/22 02:46 Heparin Sodium (Porcine) (Heparin Sod 5,000 Unit/0.5 Ml Vial) 5,000 units SQ Q8 [facility] Stop: 05/06/22 05:59 Last Admin: 04/11/22 06:09 Dose: 5,000 units Documented by: Hydralazine HCl (Hydralazine Hcl 20 Mg/Ml Vial) 10 mg IV Q6 PRN PRN Reason: blood pressure Stop: 05/07/22 16:30 Insulin Aspart (Insulin Aspart Per Unit) 0 units SC [facility] Stop: 05/06/22 16:29 Last Admin: 04/11/22 08:18 Dose: 4 units Documented by: Insulin Glargine (Insulin Glargine Solostar 100 Units/Ml 3 Ml Pen) [address] [facility] Stop: 05/06/22 20:59 Last Admin: 04/10/22 20:52 Dose: 10 units Documented by: Ipratropium [place] (Ipratropium [place] Neb Soln 0.02% 2.5 Ml Vial) 0.5 mg INH Q6R [facility] Stop: 05/06/22 06:59 Last Admin: 04/11/22 07:07 Dose: 0.5 mg Documented by: Levalbuterol HCl (Levalbuterol 1.25mg/0.5ml Neb) 1.25 mg INH Q6R [facility] Stop: 05/06/22 06:59 Last Admin: 04/11/22 07:07 Dose: Not Given Documented by: Lisinopril ([facility] 5 Mg Tab) [facility] Stop: 05/06/22 11:29 Last Admin: 04/11/22 08:20 Dose: 5 mg Documented by: Miscellaneous (Carbohydrates For Hypoglycemia ) 15 - 30 gm PO UD PRN PRN Reason: Hypoglycemia Protocol Stop: 05/06/22 02:46 Nitroglycerin (Nitroglycerin Sl 0.4 Mg/Tab Tab) 0.4 mg SL UD PRN PRN Reason: Chest Pain Stop: 05/06/22 02:46 Paroxetine HCl (Paroxetine Hcl 20 Mg Tab) [facility] Stop: 05/06/22 08:59 Last Admin: 04/11/22 08:20 Dose: 40 mg Documented by:
[2022-04-11] MEDS: FERROUS SULFATE 325 MG TAB PO SCH (13:06)
[2022-04-11] MEDS: SENNA 8.6 MG TAB PO SCH (15:19)
[2022-04-11] MEDS: ATORVASTATIN 40 MG TAB PO SCH (20:16)
[2022-04-11] MEDS: allopurinoL 300 MG TAB PO SCH (20:16)
[2022-04-11] MEDS: INSULIN GLARGINE SOLOSTAR 100 UNITS/ML 3 ML PEN SC SCH (20:16)
[2022-04-12] MEDS: LEVALBUTEROL 1.25MG/0.5ML NEB INH SCH ×3 (00:01→18:08)
[2022-04-12] MEDS: IPRATROPIUM BROMIDE NEB SOLN 0.02% 2.5 ML VIAL INH SCH ×3 (00:01→18:08)
[2022-04-12 06:51] LABS: Hematocrit (blood only) 42.9 % (42-52); Hemoglobin 13.2 g/dL (14.0-18.0); Mean Corpuscular Hemoglobin 26.4 pg (25-34); Mean Corpuscular Hgb Conc 30.8 g/dL (32-36); Mean Corpuscular Volume 85.8 fL (80-100); Mean Platelet Volume 9.3 fL (7.4-10.4); Platelet Count 261 K/uL (130-400); RDW Coefficient of Variation 17.5 % (11.5-14.5); RDW Standard Deviation 53.6 fL (36.4-46.3); White Blood Count 13.52 K/uL (4.8-10.8)
[2022-04-12 07:07] LABS: BUN Creatinine Ratio 39.7 (10-20); Calcium 8.7 mg/dl (8.5-10.1); Creatinine Clr Calc Pharmacy 64.7 ml/min; Est GFR (Non-African American) 61.3 ml/min; Magnesium 2.3 mg/dl (1.7-2.4); Phosphorus 2.8 mg/dl (2.5-4.9); Potassium 4.5 mmol/L (3.5-5.1)
[2022-04-12] MEDS ORDERED: LEVALBUTEROL HCL 1.25 MG/3 ML NEB ONE (07:10)
[2022-04-12] MEDS: INSULIN ASPART PER UNIT SC SCH ×2 (08:30→12:18)
[2022-04-12] MEDS: HEPARIN SOD 5,000 UNIT/0.5 ML VIAL SQ SCH (08:30)
[2022-04-12] MEDS: lisinopril 5 MG TAB PO SCH (08:31)
[2022-04-12] MEDS: carvediloL 12.5 MG TAB PO SCH (08:31)
[2022-04-12] MEDS: SENNA 8.6 MG TAB PO SCH (08:31)
--- NOTE | 2022-04-12 08:31 | Hospitalist Progress Note ---
Date of Service April 12, 2022 Assessment & Plan (1) Respiratory failure with hypoxia and hypercapnia: (2) Acute metabolic encephalopathy: (3) Acute kidney injury superimposed on CKD: (4) Chronic heart failure with preserved ejection fraction (HFpEF): (5) Poorly-controlled hypertension: Plan: Mr Eduardo Muse is a 77 year old non smoker, history of morbid obesity, RENE on CPAP, on chronic 2L home oxygen, chronic diastolic CHF was brought to the ER on the night of 04/05 due to unresponsiveness in the setting of increasing somnolence. Upon EMS arrival he was not wearing his oxygen and oxygen saturation was in the 40s on room air. He was placed on CPAP then BIPAP once he arrived to the hospital. He has since been weaned to 2L NC. 1. Acute metabolic encephalopathy -due to hypercarbia which has now resolved 2. Acute on chronic hypercapnic and hypoxic respiratory failure -VBG on admission:pH 7.2, pCO2- 70, HCO3- 34 -Repeat ABG on BIPAP- pH 7.39, pCO2- 48, HCO3- 29, 96 % on FIO2- 30% -He was seen by Pulmonology, appreciate input. With his non smoking history, it is unlikely he has significant underlying COPD. Last PFTs from 2006 indicate restrictive lung disease, possibly related to his body habitus. He should maintain PAP treatment at nighttime and have repeat PFTs after discharge. He may also need to repeat sleep study -s/p prednisone then solumedrol, now discontinued 3. Acute on chronic diastolic CHF -CT chest shows increased interstitial edema and bilateral pleural effusion -he is on torsemide 20mg daily although compliance is questionable. He was s/p Lasix 40mg IV BID x 3 doses. Further doses have been held due to SUKUMAR. currently he appears euvolemic -TTE 04/06 shows grade 2 diastolic dysfunction, EF 65-70%, mod concentric LVH -Appreciate Cardiology input Per cardiology - restarted lisinopril 5 mg daily, stopped topical nitrate, continued metoprolol, continued amlodipine, repeat BMP am Blood pressure was still poorly controlled, metoprolol succinate was changed to Coreg -> now improved Restart torsemide 20 mg on discharge 4. Leukocytosis -Initially there was concern for pneumonia, he was on doxycycline and zosyn. Further antibiotics have been discontinued. Will monitor off antibiotics. Procalcitonin 0.53 -likely stress and steroid induced -blood cultures negative. Urine culture negative -WBC down to 13,500 5. Poorly controlled HTN -At home, he was on lisinopril 5mg daily and metoprolol XL 100mg daily -Lisinopril has been held due to SUKUMAR, continued toprol 100mg daily. Added amlodipine 5mg daily, PRN hydralazine for SBP > 180 Now restarted lisinopril, as renal function was back to baseline BP was still poorly controlled, metoprolol succinate was changed to Coreg -> now improved 6. SUKUMAR on CKD 3 -held lisinopril and further doses of lasix -Lisinopril now restarted -monitor BMP Disposition -from home, lives with . Evaluated by PT and rehab is recommended. Plan to discharge to [facility]. Admission and Anticipated Discharge Date Admission Date: April 06, 2022 Subjective Patient seen in follow-up of hypoxic, hypercarbic respiratory failure, encephalopathy, CHF exacerbation Currently patient is sitting up in chair, in no acute distress, using 2 L of oxygen via nasal cannula, which is his baseline Patient was ambulating with a walker to the bathroom Currently patient denies any chest pain, shortness of breath, palpitations, fevers, chills, abdominal pain, nausea or vomiting BP was poorly controlled, metoprolol succinate changed to Coreg by cardiology Patient feeling well, no new concerns Review of Systems Review of Systems: All systems reviewed & are unremarkable except as noted in Subjective Physical Exam Physical Exam: Physical Exam: + chronically ill appearing, no acut e distress, sittin g in chair in NAD on 2L of O2 Respiratory: CTAB, No wheezing/ rhonchi/rales Cardiovascular:L regular rate and r hythm, no murmurs/ rubs/gallops Gastrointestinal ( Abdomen): soft, non tender, increased abdomina l girth Musculoskeletal: No edema Neurologic: awake, spontaneous ly moving extremit ies Results & Data Results & Data ([facility]) Vital Signs (Past 12 Hours) Vital Signs Temp Pulse Pulse Resp BP Pulse Ox 04/12/22 07:32 36.7 C 86 15 158/94 H 98 04/12/22 07:12 83 83 17 93 04/12/22 04:00 77 16 94 04/12/22 03:03 36.4 C L 77 18 139/88 92 04/12/22 00:01 79 18 95 04/11/22 23:01 36.6 C 85 20 154/86 H 95 04/11/22 22:24 85 20 97 Laboratory Results 04/12/22 04/12/22 04/12/22 Range/Units 07:30 06:26 06:26 WBC 13.52 H (4.8-10.8) K/uL RBC 5.00 (4.7-6.1) M/uL Hgb 13.2 L (14.0-18.0) g/dL Hct 42.9 (42-52) % MCV 85.8 (80-100) fL MCH 26.4 (25-34) pg MCHC 30.8 L (32-36) g/dL RDW Std Deviation 53.6 H (36.4-46.3) fL RDW Coeff of Alfonso 17.5 H (11.5-14.5) % Plt Count 261 (130-400) K/uL MPV 9.3 (7.4-10.4) fL Sodium 139 (136-145) mmol/L Potassium 4.5 (3.5-5.1) mmol/L Chloride 105 (98-107) mmol/L Carbon Dioxide 28 (21-32) mmol/L Anion Gap 6 (3-11) BUN 46 H (6-23) mg/dl Creatinine 1.16 (0.6-1.4) mg/dl Est Cr Clr Drug Dosing 64.7 ml/min Est GFR ( Amer) 71.0 ml/min Est GFR (Non-Af Amer) 61.3 ml/min BUN/Creatinine Ratio 39.7 H (10-20) Glucose 129 H (70-99(Fasting)) mg/dl POC Glucose 134 H (70-99) mg/dl Calcium 8.7 (8.5-10.1) mg/dl Phosphorus 2.8 (2.5-4.9) mg/dl Magnesium 2.3 (1.7-2.4) mg/dl 04/11/22 04/11/22 04/11/22 Range/Units 20:11 16:21 11:23 WBC (4.8-10.8) K/uL RBC (4.7-6.1) M/uL Hgb (14.0-18.0) g/dL Hct (42-52) % MCV (80-100) fL MCH (25-34) pg MCHC (32-36) g/dL RDW Std Deviation (36.4-46.3) fL RDW Coeff of Alfonso (11.5-14.5) % Plt Count (130-400) K/uL MPV (7.4-10.4) fL Sodium (136-145) mmol/L Potassium (3.5-5.1) mmol/L Chloride (98-107) mmol/L Carbon Dioxide (21-32) mmol/L Anion Gap (3-11) BUN (6-23) mg/dl Creatinine (0.6-1.4) mg/dl Est Cr Clr Drug Dosing ml/min Est GFR ( Amer) ml/min Est GFR (Non-Af Amer) ml/min BUN/Creatinine Ratio (10-20) Glucose (70-99(Fasting)) mg/dl POC Glucose 137 H 124 H 162 H (70-99) mg/dl Calcium (8.5-10.1) mg/dl Phosphorus (2.5-4.9) mg/dl Magnesium (1.7-2.4) mg/dl Medications Administered Current Inpatient Medications Acetaminophen (Acetaminophen 325 Mg Tab) 650 mg PO Q4H PRN PRN Reason: Pain or Fever Stop: 05/06/22 02:46 Allopurinol (Allopurinol 300 Mg Tab) [address] [facility] Stop: 05/06/22 20:59 Last Admin: 04/11/22 20:16 Dose: 300 mg Documented by: Amlodipine Besylate (Amlodipine Besylate 5 Mg Tab) 5 mg PO DAILY [facility] Stop: 05/07/22 16:59 Last Admin: 04/12/22 08:32 Dose: 5 mg Documented by: Aspirin (Aspirin 81 Mg Ectab) 81 mg PO QA [facility] Stop: 05/06/22 08:59 Last Admin: 04/12/22 08:32 Dose: 81 mg Documented by: Atorvastatin Calcium (Atorvastatin 40 Mg Tab) 40 mg PO HS [facility] Stop: 05/06/22 20:59 Last Admin: 04/11/22 20:16 Dose: 40 mg Documented by: Carvedilol (Carvedilol 12.5 Mg Tab) 12.5 mg PO BID [facility] Stop: 05/11/22 08:59 Last Admin: 04/12/22 08:31 Dose: 12.5 mg Documented by: Dextrose (Dextrose 50% 50 Ml Syringe) 25 - 50 ml IV UD PRN; Protocol PRN Reason: Hypoglycemia Protocol Stop: 05/06/22 02:46 Ferrous Sulfate (Ferrous Sulfate 325 Mg Tab) 325 mg PO Q24H [facility] Stop: 05/06/22 11:59 Last Admin: 04/11/22 13:06 Dose: 325 mg Documented by: Glucagon (Glucagon For Inj 1 Mg Vial) 1 mg SQ UD PRN; Protocol PRN Reason: Hypoglycemia Protocol Stop: 05/06/22 02:46 Glucose (Glucose 10 Tabs/Tube) 4 - 8 tabs PO UD PRN; Protocol PRN Reason: Hypoglycemia Protocol Stop: 05/06/22 02:46 Glucose (Glucose 40% Gel 15 Gm Tube) 15 - 30 gm PO UD PRN; Protocol PRN Reason: Hypoglycemia Protocol Stop: 05/06/22 02:46 Heparin Sodium (Porcine) (Heparin Sod 5,000 Unit/0.5 Ml Vial) 5,000 units SQ Q8 [facility] Stop: 05/06/22 05:59 Last Admin: 04/12/22 08:30 Dose: 5,000 units Documented by: Hydralazine HCl (Hydralazine Hcl 20 Mg/Ml Vial) 10 mg IV Q6 PRN PRN Reason: blood pressure Stop: 05/07/22 16:30 Insulin Aspart (Insulin Aspart Per Unit) 0 units SC [facility] Stop: 05/06/22 16:29 Last Admin: 04/12/22 08:30 Dose: 4 units Documented by: Insulin Glargine (Insulin Glargine Solostar 100 Units/Ml 3 Ml Pen) 10 units SC HS [facility] Stop: 05/06/22 20:59 Last Admin: 04/11/22 20:16 Dose: 10 units Documented by: Ipratropium [place] (Ipratropium [place] Neb Soln 0.02% 2.5 Ml Vial) 0.5 mg INH Q6R [facility] Stop: 05/06/22 06:59 Last Admin: 04/12/22 07:12 Dose: 0.5 mg Documented by: Levalbuterol HCl (Levalbuterol 1.25mg/0.5ml Neb) 1.25 mg INH Q6R [facility] Stop: 05/06/22 06:59 Last Admin: 04/12/22 07:12 Dose: Not Given Documented by: Lisinopril (Lisinopril 5 Mg Tab) [facility] [place] [facility] Stop: 05/06/22 11:29 Last Admin: 04/12/22 08:31 Dose: 5 mg Documented by: Miscellaneous (Carbohydrates For Hypoglycemia ) 15 - 30 gm PO UD PRN PRN Reason: Hypoglycemia Protocol Stop: 05/06/22 02:46 Nitroglycerin (Nitroglycerin Sl 0.4 Mg/Tab Tab) 0.4 mg SL UD PRN PRN Reason: Chest Pain Stop: 05/06/22 02:46 Paroxetine HCl (Paroxetine Hcl 20 Mg Tab) 40 mg PO [facility] Stop: 05/06/22 08:59 Last Admin: 04/12/22 08:32 Dose: 40 mg Documented by: Sennosides (Senna 8.6 Mg Tab) [facility].6 [facility] [place] [facility] Stop: 05/11/22 12:59 Last Admin: 04/12/22 08:31 Dose: 8.6 mg Documented by:
[2022-04-12] MEDS: amLODIPine BESYLATE 5 MG TAB PO SCH (08:32)
[2022-04-12] MEDS: PARoxetine HCL 20 MG TAB PO SCH (08:32)
[2022-04-12] MEDS: ASPIRIN 81 MG ECTAB PO SCH (08:32)
--- NOTE | 2022-04-12 11:20 | Discharge Summary ---
Date of Service April 12, 2022 Admission HPI Per Admitting Provider History obtained from patient and records. Limited history from patient secondary to disorientation. Medical history significant for chronic respiratory failure on home O2, obstructive sleep apnea on CPAP/COPD/restrictive lung disease as per records, chronic diastolic heart failure (EF 60-65% TTE 2018), presumptive CAD as per records, hypertension, DM2 insulin requiring, CRI (baseline creatinine of 1.4), thyroid nodule, renal cysts. Last confinement October 2020 for recurrent falls. Patient discharged to rehab prior to returning home. Patient seen at PCP's office 6 weeks ago on follow-up visit. Patient sleeps from 10 PM until 2 PM in the afternoon as per . Patient does not get out of bed or do anything active. Patient having trouble caring for patient. requesting for PT to come to house to help promote mobility as per note. Frequent falls necessitating EMS calls to help patient get up. PCP discussed possible long-term placement which patient and declined as per note. MRI lumbar spine recommended to rule out pathology predisposing to impaired mobility/ADLs as per note. 2 days ago, patient sustained inadvertent head trauma while laying down for outpatient MRI LS spine at [facility]. Patient stated he was fine and did not need to see a doctor as per tech note. MRI LS spine showed multilevel/multifactorial degenerative changes of the lumbar spine with varying degrees of spinal canal and neuroforaminal stenosis. Incompletely visualized large renal cystic lesions. Dry cough symptoms for about few days as per patient. Shortness of breath without chest pain. Patient not sure about weight gain. Patient not sure about COVID-19 vaccination status. Patient became unresponsive at home. O2 sats noted to be 44%. Patient placed on CPAP by EMS. Patient subsequently woke up. Brought to the ER for evaluation Initial SBP at the ER 170s. Zosyn given at the ER for possible pneumonia. Medical Historyas above Surgical history : Tonsillectomy Family History : Heart disease, stroke Personal/Social history : Non-smoker, no EtOH intake, disabled Admission Exam Per Admitting Provider GENERAL: Morbidly obese, disoriented, minimal respiratory distress, unkempt SKIN: pallor, warm HEENT: Pale palpebral conjunctivae, no ptosis, dry buccal mucosa, BiPAP in place NECK : Supple, short, no tenderness CHEST : Decreased breath sounds, occasional expiratory wheezes, no tenderness HEART : RRR, no obvious murmurs ABDOMEN: distention, nontender EXTREMITIES : minimal LE swelling, no tenderness, no other conspicuous deformities noted NEUROLOGIC : Disoriented, no facial asymmetry, mild hearing impairment, gait and stance not assessed Principal Diagnosis (1) Respiratory failure with hypoxia and hypercapnia: (2) Acute metabolic encephalopathy: (3) Acute kidney injury superimposed on CKD: (4) Chronic heart failure with preserved ejection fraction (HFpEF): (5) Poorly-controlled hypertension: Discharge Exam Physical Exam: + chronically ill appearing, no acute distress, sitting in chair in NAD on 2L of O2 Respiratory: CTAB, No wheezing/rhonchi/rales Cardiovascular: regular rate and rhythm, no murmurs/rubs/gallops Gastrointestinal (Abdomen): soft, non tender, increased abdominal girth Musculoskeletal: No edema Neurologic: awake, spontaneously moving extremities Discharge Data Allergies Allergy/AdvReac Type Severity Reaction Status Date / Time minoxidil Allergy Intermediate RASH Verified 04/05/22 23:55 venlafaxine Allergy Intermediate HTN, SHAKEY Verified 04/05/22 23:55 amlodipine Allergy Unknown Unknown Verified 04/05/22 23:55 clonidine AdvReac Unknown INTOLERANT Verified 04/05/22 23:55 Consultations 04/06/22 00:24 ED Decision to Admit Stat 04/06/22 08:39 Consult Cardiology Routine Consult Pulmonology Routine Ordered Studies 04/06/22 01:03 CT angio chest PE protocol Urgent CT CHEST: 1.7 cm exophytic nodule of the posterior left thyroid. 1.8 x 1.2 cm lymph node within the right tracheoesophageal recess on image 217 series 4 is similar to mildly decreased in size from the prior study. Calcified left hilar lymph nodes. Small to moderate layering pleural effusions. No pneumothorax. Intralobular septal thickening is noted in conjunction with patchy bilateral groundglass opacities. Dependent bibasilar consolidation with mild linear consolidation of the lingula suggestive of atelectasis. There are no suspicious pulmonary nodules or masses identified. There is no acute process of the imaged upper abdomen. The spleen is enlarged. Partially imaged 8.6 cm cyst of the superior pole right kidney. Unremarkable soft tissues. Gynecomastia. Indeterminate peripherally sclerotic lucent lesion is noted involving the anterior right sixth rib which is unchanged and likely benign. IMPRESSION: 1. No pulmonary emboli identified. 2. Cardiomegaly with small to moderate layering pleural effusions and mild bibasilar predominant atelectasis. 3. Interstitial pulmonary edema with bilateral groundglass densities suggestive of alveolar pulmonary edema. An infectious or inflammatory pneumonitis could appear similarly however is considered less likely. 4. Splenomegaly. CT head/brain wo con Urgent FINDINGS: No acute intracranial hemorrhage, midline shift, intra-axial mass, hydrocephalus, territorial ischemia or abnormal extra-axial collection. Age- related involutional changes with ex vacuo ventriculomegaly. White matter hypodensities are suggestive of chronic microvascular ischemic disease. Chronic lacunar infarct of the left lentiform nucleus. Cerebral vascular calcifications. 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 The calvarium is intact. The paranasal sinuses, mastoid air cells, and middle ear cavities are clear. IMPRESSION: No acute intracranial abnormality. Hospital Course (1) Respiratory failure with hypoxia and hypercapnia: (2) Acute metabolic encephalopathy: (3) Acute kidney injury superimposed on CKD: (4) Chronic heart failure with preserved ejection fraction (HFpEF): (5) Poorly-controlled hypertension: Mr Eduardo Muse is a 77 year old non smoker, history of morbid obesity, RENE on CPAP, on chronic 2L home oxygen, chronic diastolic CHF was brought to the ER on the night of 04/05 due to unresponsiveness in the setting of increasing somnolence. Upon EMS arrival he was not wearing his oxygen and oxygen saturation was in the 40s on room air. He was placed on CPAP then BIPAP once he arrived to the hospital. He has since been weaned to 2L NC. 1. Acute metabolic encephalopathy -due to hypercarbia which has now resolved 2. Acute on chronic hypercapnic and hypoxic respiratory failure -VBG on admission:pH 7.2, pCO2- 70, HCO3- 34 -Repeat ABG on BIPAP- pH 7.39, pCO2- 48, HCO3- 29, 96 % on FIO2- 30% -He was seen by Pulmonology, appreciate input. With his non smoking history, it is unlikely he has significant underlying COPD. Last PFTs from 2006 indicate restrictive lung disease, possibly related to his body habitus. He should maintain PAP treatment at nighttime and have repeat PFTs after discharge. He may also need to repeat sleep study -s/p prednisone then solumedrol, now discontinued 3. Acute on chronic diastolic CHF -CT chest shows increased interstitial edema and bilateral pleural effusion -he is on torsemide 20mg daily although compliance is questionable. He was s/p Lasix 40mg IV BID x 3 doses. Further doses have been held due to SUKUMAR. currently he appears euvolemic -TTE 04/06 shows grade 2 diastolic dysfunction, EF 65-70%, mod concentric LVH -Appreciate Cardiology input Per cardiology - restarted lisinopril 5 mg daily, stopped topical nitrate, continued metoprolol, continued amlodipine, repeat BMP am Blood pressure was still poorly controlled, metoprolol succinate was changed to Coreg -> now improved Restart torsemide 20 mg on discharge 4. Leukocytosis -Initially there was concern for pneumonia, he was on doxycycline and zosyn. Further antibiotics have been discontinued. Will monitor off antibiotics. Procalcitonin 0.53 -likely stress and steroid induced -blood cultures negative. Urine culture negative -WBC down to 13,500 5. Poorly controlled HTN -At home, he was on lisinopril 5mg daily and metoprolol XL 100mg daily -Lisinopril has been held due to SUKUMAR, continued toprol 100mg daily. Added amlodipine 5mg daily, PRN hydralazine for SBP > 180 Now restarted lisinopril, as renal function was back to baseline BP was still poorly controlled, metoprolol succinate was changed to Coreg -> now improved 6. SUKUMAR on CKD 3 -held lisinopril and further doses of lasix -Lisinopril now restarted -monitor BMP Disposition -from home, lives with . Evaluated by PT and rehab is recommended. Plan to discharge to [facility]. Total Time Total Time Spent Total Time Spent (In Minutes): 40 Discharge Plan Discharge Items Patient Disposition: Transfer Inpatient Rehab Fac Reason For Visit: RESP FAILURE Discharge Diagnosis: (1) Respiratory failure with hypoxia and hypercapnia: (2) Acute metabolic encephalopathy: (3) Acute kidney injury superimposed on CKD: (4) Chronic heart failure with preserved ejection fraction (HFpEF): (5) Poorly-controlled hypertension: Activity: Per Instructions section Non-emergency contact: Primary Care Provider Call non-emergency contact if: you have any medication questions and your symptoms worsen Follow-up/Referrals: Keyon Rdz, [Primary Care Provider] - Diet: Carb Consistent or DM2 and Heart Healthy Addtl Attending Provider Instructions: Stop taking metoprolol. Instead, take carvedilol/Coreg as prescribed. You were also started on a new medication for blood pressure, amlodipine. Take it as prescribed. You should use CPAP/BiPAP at night when you sleep, and you should have a sleep study done. It is recommended that you have pulmonary functional test done as well. Pending Studies at Discharge: No Stand-Alone Forms: My [facility] Skilled Items Patient informed of condition?: Yes DNR: No Discharge Level of Care: Acute rehab Communicable Disease: No Discharge Prognosis: Stable Lines: None Urinary Catheter: No Medications and DC Order Prescriptions: New carvedilol 12.5 mg Tablet 12.5 mg PO BID Qty: 10 RF: 0 sennosides [Senokot] 8.6 mg Tablet 8.6 mg PO QAM Qty: 10 RF: 0 amlodipine [Norvasc] 5 mg Tablet 5 mg PO DAILY Qty: 10 RF: 0 Continued aspirin 81 mg Tablet,Delayed Release (Dr/Ec) 81 mg PO QAM RF: 0 allopurinol 300 mg tablet 300 mg PO HS RF: 0 paroxetine HCl 40 mg tablet 40 mg PO QAM RF: 0 ferrous sulfate [iron] 325 mg (65 mg iron) Tablet 325 mg PO DAILY RF: 0 trazodone 50 mg tablet 50 mg PO HS RF: 0 torsemide 20 mg tablet 20 mg PO QAM RF: 0 Levemir FlexTouch U-100 Insuln 100 unit/mL (3 mL) Insulin Pen 28 unit SUBCUT HS RF: 0 atorvastatin 40 mg tablet 40 mg PO HS RF: 0 lisinopril 5 mg tablet 5 mg PO QAM RF: 0 cholecalciferol (vitamin D3) [Vitamin D3] 25 mcg (1,000 unit) Tablet 25 mcg PO DAILY RF: 0 Discontinued metoprolol succinate 100 mg Tablet Extended Release 24 Hr 100 mg PO DAILY RF: 0 Discharge Orders: Discharge Order (Routine); Ordered 04/12/22 Ordered By: Darrin Lucas Admission Data Admit Date/Time: 04/06/22 01:06 Attending Provider: Darrin Lucas Admit Provider: Daron Espinosa Primary Care Provider: Keyon Rdz Other Providers: Daron Espinosa ; Diaz Connor ; Ramez Gonzalezg,[facility] ; [facility]
[2022-04-12] MEDS: FERROUS SULFATE 325 MG TAB PO SCH (12:18)
== END 2022-04-12 13:05 | DRG 189 ==
LOC: ED 22:59 → SUATTDRO 04-06 01:06 → 2E 04-06 01:06

== ENCOUNTER 2022-11-19 17:15 | Inpatient (IN) ==
[2022-11-19 18:11] LABS: Basophils # (auto) 0.07 K/uL (0-0.2); Basophils % (auto) 0.6 %; Eosinophils # (auto) 0.64 K/uL (0-0.50); Eosinophils % (auto) 5.2 %; Hematocrit (blood only) 38.6 % (40.1-51.0); Hemoglobin 12.3 g/dl (14.0-18.0); Immature Granulocytes # (auto) 0.07 K/uL (0.00-0.02); Immature Granulocytes % (auto) 0.6 %; Lymphocytes # (auto) 1.56 K/uL (1.2-3.4); Lymphocytes % (auto) 12.6 %; Mean Corpuscular Hemoglobin 27.5 pg (25.0-34.0); Mean Corpuscular Hgb Conc 31.9 g/dL (32.0-36.0); Mean Corpuscular Volume 86.4 fL (80.0-100.0); Mean Platelet Volume 9.3 fL (9.4-12.4); Monocytes # (auto) 0.48 K/uL (0.24-0.82); Monocytes % (auto) 3.9 %; Neutrophils # (auto) 9.53 K/uL (1.4-6.5); Neutrophils % (auto) 77.1 %; Platelet Count 314 K/uL (130-400); RDW Coefficient of Variation 17.4 % (11.5-14.5); RDW Standard Deviation 54.6 fL (36.4-46.3); Red Blood Count 4.47 M/uL (4.63-6.08); White Blood Count 12.35 K/ul (4.8-10.8)
[2022-11-19 18:42] LABS: Albumin Level 3.4 gm/dl (3.4-5.0); Bilirubin,Total 0.8 mg/dl (0.2-1.0); Calcium 9.1 mg/dl (8.5-10.1); Potassium 4.2 mmol/L (3.5-5.1)
[2022-11-19 18:48] LABS: BUN Creatinine Ratio 17.2 (10-20); Creatinine Clr Calc Pharmacy 54.4 ml/min; Est GFR (Non-African American) 54.4 ml/min; Globulin 3.5 gm/dl (2.5-4.0); Total Protein 6.9 gm/dl (6.0-8.3)
[2022-11-19] MEDS ORDERED: SODIUM CHLORIDE 0.9% 500 ML IV ONE (19:02)
--- NOTE | 2022-11-19 19:05 | Emergency Department Note ---
Impression & Plan Generalized weakness, Pressure sore ED Provider Note NAME: JESSICA DELCID AGE: 77 SEX: M : 1945 ARRIVES VIA: Ambulance INFORMANT: Patient, the patient's significant other ED PROVIDER(S): Alvin Negrete DO CHIEF COMPLAINT: Weakness HPI: The patient is a 77-year-old male who presented to the emergency department with his significant other by ambulance. Apparently the patient was told to come the emergency department by his primary care physician. There is concern the patient may not be safe at home. The patient has not been able to ambulate well over the course of the last 6 months. Because this he has had multiple areas of skin breakdown especially on his buttocks and his right groin. He was seen at [facility] and evaluated and prescribed topical treatment. The visiting nurse evaluated the patient today and talk to the primary care physician reportedly. The patient was sent to the emergency department by ambulance for further evaluation as well as inpatient management. ROS: See above HPI for pertinent positives & negatives. A total of 10 systems reviewed and were otherwise negative. PAST MEDICAL HISTORY: See Below PAST SURGICAL HISTORY: See Below FAMILY HISTORY: See Below SOCIAL HISTORY: See Below HOME MEDICATIONS: See Below ALLERGIES: See Below VITALS: See Below PHYSICAL EXAMINATION: GENERAL: Patient is awake alert in no acute distress patient is resting comfortably and showing no signs of anxiety EYES: The conjunctivae are clear. The pupils are round and reactive. EARS, NOSE, MOUTH AND THROAT: The nose is without any evidence of any deformity. Mucous membranes are moist. Tongue is midline. NECK: The neck is nontender and supple. RESPIRATORY: Normal respiratory effort is noted there is no evidence of wheezing rhonchi or rales CARDIOVASCULAR: Regular rate and rhythm noted there no murmurs rubs or gallops normal S1 normal S2. GASTROINTESTINAL: The abdomen is soft. Abdomen is nontender. MUSCULOSKELETAL/EXTREMITIES: There is no evidence of gross deformity full range of motion is noted in the hips and shoulders. SKIN: There is an area of skin breakdown in the right inguinal region. There is no active bleeding. There is also skin breakdown and erythema noted on the sacral region and over the buttocks. NEUROLOGIC: Patient is awake alert and oriented x3 MEDICAL DECISION MAKING: The patient is a 77-year-old male who presented to the emergency department by ambulance for an evaluation of generalized weakness. The patient has been having ongoing worsening symptoms since [place] of last year. The patient was evaluated by the primary care physician as well as the visiting nurse. It is felt that the patient is not doing well and may benefit of inpatient treatment as well as placement if his condition does not improve in the hospital. I discussed the patient's laboratory and radiographic studies with him. I have discussed his case with the on-call [facility]. They have agreed to evaluate the patient in the emergency department for further management and disposition. Triage Nursing notes reviewed. Prior medical records reviewed Vital Signs: reviewed and remarkable for no significant abnormalities Differential diagnosis: Cellulitis, abscess, MRSA infection, DVT, necrotizing fasciitis, dermatitis, drug eruption, allergic reaction, as well as other pathologies. ER treatment provided: See below Diagnostics interpreted by me: ECG: none Cardiac Monitoring: An order was placed for continuous cardiac monitoring. The monitor shows a rate of 81 bpm with sinus rhythm. Laboratory studies: As stated above and show below. Imaging studies: See below. Radiographic imaging was reviewed by myself Consultation(s): I discussed this case with Dr. Velasco who is on-call for the [facility] group. Past Med/Surg History Medical History (Updated 11/19/22 @ 22:04 by Alvin Negrete DO) Anxiety CKD (chronic kidney disease) stage 3, GFR 30-59 ml/min COPD (chronic obstructive pulmonary disease) Depression Diabetes mellitus type 2 in obese Diastolic heart failure Dyslipidemia Essential hypertension Essential tremor GERD (gastroesophageal reflux disease) GI bleed (03/14/14) Gout Obstructive sleep apnea on CPAP Restless leg syndrome Restrictive airway disease Surgical History H/O colonoscopy " 04/09/2014- adenomatous & TVA polyps, diverticulosis 04/29/2015- normal " H/O colonoscopy with polypectomy "2012 - polyps, adenomatous" H/O esophagogastroduodenoscopy " 03/15/2014- mild-mod inflammation " History of pericardiotomy S/P tonsillectomy and adenoidectomy Family History Other Coronary heart disease Stroke Social History Smoking Status: Never smoker Second Hand Exposure: No; Hx Alcohol Use: Yes Alcohol type: beer Hx Substance Use: No Preferred Language: Syriac Communication Ability: Impaired Visual Impairment: Limited Flight Operations Inspector Required: No Beliefs That Will Affect Care: None marital status: Current Living Situation: Spouse Feels Safe at Home: Yes Assistive Devices: Walker Allergies Allergies Allergy/AdvReac Type Severity Reaction Status Date / Time minoxidil Allergy Intermediate RASH Verified 11/19/22 20:46 venlafaxine Allergy Intermediate HTN, SHAKEY Verified 11/19/22 20:46 amlodipine Allergy Unknown Unknown Verified 11/19/22 20:46 clonidine AdvReac Unknown INTOLERANT Verified 11/19/22 20:46 Home Meds Home Medications Medication Instructions Recorded Confirmed allopurinol 300 mg tablet 300 mg PO HS 11/19/22 11/19/22 amlodipine 5 mg tablet 5 mg PO QA 11/19/22 11/19/22 aspirin 81 mg tablet,delayed 81 mg PO DAILY 11/19/22 11/19/22 release atorvastatin 40 mg tablet 40 mg PO DAILY 11/19/22 11/19/22 carvedilol 12.5 mg tablet 12.5 mg PO BIDM 11/19/22 11/19/22 finasteride 5 mg tablet 5 mg PO QA 11/19/22 11/19/22 insulin detemir U-100 100 unit/mL 24 unit subcut QPM 11/19/22 11/19/22 (3 mL) subcutaneous pen (Levemir FlexTouch U-100 Insulin) paroxetine HCl 40 mg tablet 40 mg PO QA 11/19/22 11/19/22 sennosides 8.6 mg capsule 8.6 mg PO DAILY 11/19/22 11/19/22 tamsulosin 0.4 mg capsule 0.4 mg PO QA 11/19/22 11/19/22 torsemide 20 mg tablet 20 mg PO DAILY 11/19/22 11/19/22 trazodone 50 mg tablet 50 mg PO 11/19/22 11/19/22 Results & Data (ED) Vital Signs Vital Signs - 24 hr 11/19/22 17:34 11/19/22 17:34 11/19/22 20:19 Temperature 36.3 C L 36.3 C L Temperature Source Oral Oral Pulse Rate 83 Pulse Rate [Finger] 83 81 Respiratory Rate 18 18 18 Blood Pressure 129/72 Blood Pressure [Right Arm] 129/72 138/71 Blood Pressure Mean 91 Blood Pressure Mean [Right Arm] 91 93 Pulse Oximetry 99 99 96 Oxygen Delivery Method Room Air Room Air Sepsis Recent Fever Within 48 Hours No Sepsis New/Unexplained Change in Mental Status No Sepsis Action Taken by Nursing No Action Required Home Medications Current Medication List: was personally reviewed by me Laboratory Data Attestation: I reviewed the patient's lab results. 11/19/22 17:32 11/19/22 17:32 Lab Results 11/19/22 11/19/22 11/19/22 Range/Units 17:32 17:32 17:32 WBC 12.35 H (4.8-10.8) K/ul RBC 4.47 L (4.63-6.08) M/uL Hgb 12.3 L (14.0-18.0) g/dl Hct 38.6 L (40.1-51.0) % MCV 86.4 (80.0-100.0) fL MCH 27.5 (25.0-34.0) pg MCHC 31.9 L (32.0-36.0) g/dL RDW Std Deviation 54.6 H (36.4-46.3) fL RDW Coeff of Alfonso 17.4 H (11.5-14.5) % Plt Count 314 (130-400) K/uL MPV 9.3 L (9.4-12.4) fL Immature Gran % (Auto) 0.6 % Neut % (Auto) 77.1 % Lymph % (Auto) 12.6 % [place] % (Auto) 3.9 % Eos % (Auto) 5.2 % Baso % (Auto) 0.6 % Neut # (Auto) 9.53 H (1.4-6.5) K/uL Lymph # (Auto) 1.56 (1.2-3.4) K/uL [place] # (Auto) 0.48 (0.24-0.82) K/uL Eos # (Auto) 0.64 H (0-0.50) K/uL Baso # (Auto) 0.07 (0-0.2) K/uL Immature Gran # (Auto) 0.07 H (0.00-0.02) K/uL ESR 78 H (0-20) mm/hr PT (9.0-12.0) Seconds INR (0.9-1.1) APTT (21.0-31.0) Seconds PTT Ratio Sodium 140 (136-145) mmol/L Potassium 4.2 (3.5-5.1) mmol/L Chloride 101 (98-107) mmol/L Carbon Dioxide 35 H (21-32) mmol/L Anion Gap 4 (3-11) BUN 22 (6-23) mg/dl Creatinine 1.28 (0.6-1.4) mg/dl Est Cr Clr Drug Dosing 54.4 ml/min Est GFR ( Amer) 63.0 ml/min Est GFR (Non-Af Amer) 54.4 ml/min BUN/Creatinine Ratio 17.2 (10-20) Glucose 109 H (70-99(Fasting)) mg/dl Calcium 9.1 (8.5-10.1) mg/dl Total Bilirubin 0.8 (0.2-1.0) mg/dl AST 10 L (13-39) U/L ALT 6 L (7-52) U/L Alkaline Phosphatase 68 (34-104) U/L C-Reactive Protein (0-0.5) mg/dl Total Protein 6.9 (6.0-8.3) gm/dl Albumin 3.4 (3.4-5.0) gm/dl Globulin 3.5 (2.5-4.0) gm/dl Albumin/Globulin Ratio 1.0 (0.9-2) Procalcitonin (0-0.5) ng/ml Urine Color Urine Appearance (Clear) Urine pH (4.5-7.5) Ur Specific [place] (1.000-1.030) Urine Protein (Negative) Urine Glucose (UA) (Negative) Urine Ketones (Negative) Urine Blood (Negative) Urine Nitrite (Negative) Urine Bilirubin (Negative) Urine Urobilinogen (Negative) Ur Leukocyte Esterase (Negative) Urine WBC (Auto) (0-5) /hpf Urine RBC (Auto) (0-4) /hpf U Hyaline Cast (Auto) (0-5) /lpf U Epithel Cells (Auto) (0-5) /lpf Urine Bacteria (Auto) (Negative) Urine Yeast SARS-CoV-2, RNA, NAAT (NEGATIVE) 11/19/22 11/19/22 11/19/22 Range/Units 17:32 17:32 19:10 WBC (4.8-10.8) K/ul RBC (4.63-6.08) M/uL Hgb (14.0-18.0) g/dl Hct (40.1-51.0) % MCV (80.0-100.0) fL MCH (25.0-34.0) pg MCHC (32.0-36.0) g/dL RDW Std Deviation (36.4-46.3) fL RDW Coeff of Alfonso (11.5-14.5) % Plt Count (130-400) K/uL MPV (9.4-12.4) fL Immature Gran % (Auto) % Neut % (Auto) % Lymph % (Auto) % [place] % (Auto) % Eos % (Auto) % Baso % (Auto) % Neut # (Auto) (1.4-6.5) K/uL Lymph # (Auto) (1.2-3.4) K/uL [place] # (Auto) (0.24-0.82) K/uL Eos # (Auto) (0-0.50) K/uL Baso # (Auto) (0-0.2) K/uL Immature Gran # (Auto) (0.00-0.02) K/uL ESR (0-20) mm/hr PT (9.0-12.0) Seconds INR (0.9-1.1) APTT (21.0-31.0) Seconds PTT Ratio Sodium (136-145) mmol/L Potassium (3.5-5.1) mmol/L Chloride (98-107) mmol/L Carbon Dioxide (21-32) mmol/L Anion Gap (3-11) BUN (6-23) mg/dl Creatinine (0.6-1.4) mg/dl Est Cr Clr Drug Dosing ml/min Est GFR ( Amer) ml/min Est GFR (Non-Af Amer) ml/min BUN/Creatinine Ratio (10-20) Glucose (70-99(Fasting)) mg/dl Calcium (8.5-10.1) mg/dl Total Bilirubin (0.2-1.0) mg/dl AST (13-39) U/L ALT (7-52) U/L Alkaline Phosphatase (34-104) U/L C-Reactive Protein 5.44 H (0-0.5) mg/dl Total Protein (6.0-8.3) gm/dl Albumin (3.4-5.0) gm/dl Globulin (2.5-4.0) gm/dl Albumin/Globulin Ratio (0.9-2) Procalcitonin 0.19 (0-0.5) ng/ml Urine Color Urine Appearance (Clear) Urine pH (4.5-7.5) Ur Specific [place] (1.000-1.030) Urine Protein (Negative) Urine Glucose (UA) (Negative) Urine Ketones (Negative) Urine Blood (Negative) Urine Nitrite (Negative) Urine Bilirubin (Negative) Urine Urobilinogen (Negative) Ur Leukocyte Esterase (Negative) Urine WBC (Auto) (0-5) /hpf Urine RBC (Auto) (0-4) /hpf U Hyaline Cast (Auto) (0-5) /lpf U Epithel Cells (Auto) (0-5) /lpf Urine Bacteria (Auto) (Negative) Urine Yeast SARS-CoV-2, RNA, NAAT NEGATIVE (NEGATIVE) 11/19/22 11/19/22 Range/Units 19:19 20:44 WBC (4.8-10.8) K/ul RBC (4.63-6.08) M/uL Hgb (14.0-18.0) g/dl Hct (40.1-51.0) % MCV (80.0-100.0) fL MCH (25.0-34.0) pg MCHC (32.0-36.0) g/dL RDW Std Deviation (36.4-46.3) fL RDW Coeff of Alfonso (11.5-14.5) % Plt Count (130-400) K/uL MPV (9.4-12.4) fL Immature Gran % (Auto) % Neut % (Auto) % Lymph % (Auto) % [place] % (Auto) % Eos % (Auto) % Baso % (Auto) % Neut # (Auto) (1.4-6.5) K/uL Lymph # (Auto) (1.2-3.4) K/uL [place] # (Auto) (0.24-0.82) K/uL Eos # (Auto) (0-0.50) K/uL Baso # (Auto) (0-0.2) K/uL Immature Gran # (Auto) (0.00-0.02) K/uL ESR (0-20) mm/hr PT 11.4 (9.0-12.0) Seconds INR 1.1 (0.9-1.1) APTT 31.7 H (21.0-31.0) Seconds PTT Ratio 1.2 Sodium (136-145) mmol/L Potassium (3.5-5.1) mmol/L Chloride (98-107) mmol/L Carbon Dioxide (21-32) mmol/L Anion Gap (3-11) BUN (6-23) mg/dl Creatinine (0.6-1.4) mg/dl Est Cr Clr Drug Dosing ml/min Est GFR ( Amer) ml/min Est GFR (Non-Af Amer) ml/min BUN/Creatinine Ratio (10-20) Glucose (70-99(Fasting)) mg/dl Calcium (8.5-10.1) mg/dl Total Bilirubin (0.2-1.0) mg/dl AST (13-39) U/L ALT (7-52) U/L Alkaline Phosphatase (34-104) U/L C-Reactive Protein (0-0.5) mg/dl Total Protein (6.0-8.3) gm/dl Albumin (3.4-5.0) gm/dl Globulin (2.5-4.0) gm/dl Albumin/Globulin Ratio (0.9-2) Procalcitonin (0-0.5) ng/ml Urine Color Yellow Urine Appearance Turbid A (Clear) Urine pH 6.5 (4.5-7.5) Ur Specific [place] 1.013 (1.000-1.030) Urine Protein 1+ H (Negative) Urine Glucose (UA) Negative (Negative) Urine Ketones Negative (Negative) Urine Blood 2+ H (Negative) Urine Nitrite Negative (Negative) Urine Bilirubin Negative (Negative) Urine Urobilinogen Negative (Negative) Ur Leukocyte Esterase 3+ H (Negative) Urine WBC (Auto) >30 H (0-5) /hpf Urine RBC (Auto) 10-30 H (0-4) /hpf U Hyaline Cast (Auto) 0 (0-5) /lpf U Epithel Cells (Auto) >30 H (0-5) /lpf Urine Bacteria (Auto) 4+ H (Negative) Urine Yeast Not Reportable SARS-CoV-2, RNA, NAAT (NEGATIVE) Administered Medications Discontinued Medications Sodium Chloride (Nss) 500 mls @ 999 mls/hr IV .Q31M ONE Stop: 11/19/22 19:32 Last Infusion: 11/19/22 20:17 Dose: 0 mls/hr Documented By: Admin: 11/19/22 19:38 Dose: 999 mls/hr Documented By: MAVERICK Discharge Plan Visit Data Chief Complaint: Leg Weakness, Bilateral Stated Complaint: Weakness, Bed sores ED Provider: Alvin Negrete Discharge Problem: Generalized weakness, Pressure sore Patient Disposition: Admitted As Inpatient Forms Stand Alone Forms: My [facility] Prescriptions Prescriptions: No Action allopurinol 300 mg Tablet 300 mg PO HS amlodipine 5 mg tablet 5 mg PO QAM aspirin [Aspir-Low] 81 mg Tablet,Delayed Release (Dr/Ec) 81 mg PO DAILY carvedilol 12.5 mg tablet 12.5 mg PO BIDM torsemide 20 mg tablet 20 mg PO DAILY finasteride 5 mg tablet 5 mg PO QAM paroxetine HCl 40 mg tablet 40 mg PO QAM tamsulosin 0.4 mg capsule 0.4 mg PO QAM atorvastatin 40 mg Tablet 40 mg PO DAILY trazodone 50 mg tablet 50 mg PO HS sennosides 8.6 mg Capsule 8.6 mg PO DAILY Levemir FlexTouch U-100 Insuln 100 unit/mL (3 mL) insulin pen 24 unit SUBCUT QPM Referrals Referrals: Keyon Rdz DO [Physician] -
[2022-11-19 19:53] LABS: Appearance Urine Turbid (Clear); Bacteria Urine Automated 4+ (Negative); Bilirubin Urine Negative (Negative); Blood Urine 2+ (Negative); Color Urine Yellow; Epithelial Cell Urine Auto >30 /lpf (0-5); Glucose Urine UA Negative (Negative); Ketones Urine Negative (Negative); Leukocyte Esterase Urine 3+ (Negative); Nitrite Urine Negative (Negative); Protein Urine 1+ (Negative); Specific Gravity Urine 1.013 (1.000-1.030); Urobilinogen Urine Negative (Negative); WBC Urine Automated >30 /hpf (0-5); pH Urine 6.5 (4.5-7.5)
[2022-11-19 20:29] LABS: Cast Urine Automated 0 /lpf (0-5)
[2022-11-19 21:52] LABS: INR 1.1 (0.9-1.1); Partial Thromboplastin Ratio 1.2; Partial Thromboplastin Time 31.7 Seconds (21.0-31.0); Prothrombin Time 11.4 Seconds (9.0-12.0)
[2022-11-19] MEDS ORDERED: GLUCOSE 10 TAB/TUBE PO PRN (22:09)
[2022-11-19] MEDS ORDERED: DEXTROSE 50% 50 ML SYRINGE IV PRN (22:09)
[2022-11-19] MEDS ORDERED: GLUCAGON FOR INJ 1 MG VIAL SQ PRN (22:09)
[2022-11-19] MEDS ORDERED: GLUCOSE 40% GEL 15 GM TUBE PO PRN (22:09)
[2022-11-19] MEDS ORDERED: CARBOHYDRATES FOR HYPOGLYCEMIA PO PRN (22:09)
[2022-11-19] MEDS ORDERED: POLYETHYLENE (MIRALAX) 17 GM PACK PO PRN (22:09)
[2022-11-19] MEDS: LANTUS PER UNIT CHARGE SQ SCH (22:27)
[2022-11-19] MEDS: INSULIN ASPART PER UNIT SC SCH (22:27)
[2022-11-19] MEDS: cefTRIAXone SODIUM 2,000 MG in DEXTROSE 5% 50 ML IV SCH (22:38)
[2022-11-19] MEDS: allopurinoL 300 MG TAB PO SCH (22:39)
[2022-11-19] MEDS: traZODone HCL 50 MG TAB PO SCH (22:39)
[2022-11-19] MEDS: ENOXAPARIN INJ 40 MG/0.4 ML SYR SQ SCH (22:39)
--- NOTE | 2022-11-20 00:35 | History and Physical Report ---
DATE OF ADMISSION: 11/19/2022. CHIEF COMPLAINT: Weakness, ambulatory dysfunction. HISTORY OF PRESENT ILLNESS: This is a 77-year-old male with past medical history significant for type 2 diabetes, hyperlipidemia, chronic kidney disease, stage III; chronic respiratory failure with hypoxia, on home oxygen; history of COPD, obstructive sleep apnea, CPAP at bedtime; asthma moderate persistent hypertension, chronic diastolic CHF, GERD, slow transit constipation, morbid obesity, history of gout, depression, generalized anxiety disorder, history of presumptive CAD as per records, was brought in by because of ambulatory dysfunction and weakness. The patient was here in 04/2022 with acute metabolic encephalopathy, SUKUMAR, respiratory failure with hypoxia and hypercapnia, history of underlying COPD, possible restrictive lung disease, blood pressure was poorly controlled and his metoprolol succinate was changed to Coreg. Restarted torsemide on discharge. Was discharged to [facility] at that time also because of weakness. Patient's says, prior to that hospitalization, he was able to walk . After last hospitalization in 04/22, he went to rehab and he stayed at rehab for 2-3 weeks and came home.Since then not at all ambulating. He is mostly bedbound. He has home health for 6 weeks afgter coming from rehab but now completely taken care by his . The patient is alert and awake, can tell his name, knows that he is in the hospital, could tell his date of , tell today's month and year. As per the , he is eating okay. No difficulty swallowing. The patient denies any headache. No chest pain, no abdominal pain. Has some back pain. No pain in the legs. No shortness of breath, no cough, no fevers, no runny nose, no sore throat. No nausea. Resting comfortably and hemodynamically stable. ALLERGIES: TO MINOXIDIL, VENLAFAXINE, AMLODIPINE AND CLONIDINE. PAST MEDICAL HISTORY: As mentioned above. PAST SURGICAL HISTORY: Colonoscopy, colonoscopy with biopsy, EGD, incision of heart sac for drainage, tonsillectomy and adenoidectomy. MEDICATIONS: The patient is on allopurinol 300 mg p.o. at bedtime, amlodipine 5 mg p.o. a.m., aspirin 81 mg p.o. daily, atorvastatin 40 mg p.o. daily, Coreg 12.5 mg p.o. b.i.d., finasteride 5 mg p.o. a.m., Levemir 24 units subcutaneous at bedtime, paroxetine 40 mg p.o. a.m., Senokot 8.6 mg p.o. daily, Flomax 0.4 mg p.o. a.m., torsemide 20 mg p.o. daily, trazodone 50 mg p.o. at bedtime. FAMILY HISTORY: Significant for mother has hypertension, father has hypertension, maternal grandfather had heart disorder, paternal grandfather has heart disorder, maternal grandmother had heart disorder, paternal grandmother has heart disorder. SOCIAL HISTORY: . Lives with his . No smoking, no alcohol, no drug use. REVIEW OF SYSTEMS: As per HPI. Rest of review of systems is negative. PHYSICAL EXAMINATION: GENERAL: The patient is obese, not in acute distress. VITAL SIGNS: Temperature 36.3, pulse 81, respiratory rate 18, blood pressure 113/71, oxygen 96% on room air. HEENT: Pupils equal, round and reactive to light. Oral mucosa moist. NECK: No JVD, no neck masses. CARDIOVASCULAR: S1 and S2 heard. Regular rate and rhythm. No murmur, no gallop. RESPIRATORY SYSTEM: Normal AP diameter. No accessory muscle use. No wheezing, no crackles. ABDOMEN: Soft, bowel sounds present, nontender, no distention. CENTRAL NERVOUS SYSTEM: Alert and oriented to name, place and could tell today's month and year. Speech is clear. No facial droop. Obeys simple commands. Moves extremities. EXTREMITIES: No edema, no erythema. LABORATORY DATA: WBC 12.3, hemoglobin 12.3, hematocrit 38.6, platelets 314. ESR 78. Sodium 140, potassium 4.2, chloride 101, bicarbonate 35, BUN 22, creatinine 1.38, serum glucose 109, calcium 89.1, total bilirubin 0.8, AST 10, ALT 6, alkaline phosphatase 68. C-reactive protein 5.44. Procalcitonin 0.19. Urinalysis, +3 leukocyte esterase, +4 bacteria. SARS-CoV-2 rapid test negative. ASSESSMENT AND PLAN: This is a 77-year-old male with past medical history significant for type 2 diabetes, chronic respiratory failure with hypoxia, on home oxygen, history of COPD, obstructive sleep apnea, asthma, restrictive lung disease, chronic diastolic CHF, hypertension, GERD, morbid obesity, slow transit constipation, chronic kidney disease, stage III, gout, depression, generalized anxiety disorder, presents with ambulatory dysfunction and weakness. 1. Ambulatory dysfunction, weakness and deconditioning: Was in rehab in May 2022. Will do PT, OT. Social service consult for help with possible placement. 2. History of chronic respiratory failure, history of obstructive sleep apnea, COPD, asthma: Continue his home oxygen, currently seems stable. Currently not on any inhalers. We will monitor. On CPAP at bedtime. 3. Chronic kidney disease, stage III, presently with a creatinine of 1.2. We will follow the labs. 4. Diabetes: Continue his long-acting insulin and insulin sliding scale. Follow the blood sugars. 5. History of gout: On allopurinol. 6. History of hypertension: On amlodipine, Coreg. We will monitor the blood pressure. 7. History of BPH and finasteride and Flomax. 8. History of chronic diastolic congestive heart failure: On torsemide, which will be continued. 9. History of depression: On paroxetine and trazodone. 10. Deep venous thrombosis prophylaxis: We will place on Lovenox. DISPOSITION: Closely monitor in the medical floor. PT/OT. Social service to help with discharge planning. Level 1 full code as per my discussion with . Job ID: [id number] MTDD
[2022-11-20 06:06] LABS: Basophils # (auto) 0.07 K/uL (0-0.2); Basophils % (auto) 0.6 %; Eosinophils # (auto) 0.68 K/uL (0-0.50); Eosinophils % (auto) 5.6 %; Hematocrit (blood only) 33.4 % (40.1-51.0); Hemoglobin 10.5 g/dl (14.0-18.0); Immature Granulocytes # (auto) 0.07 K/uL (0.00-0.02); Immature Granulocytes % (auto) 0.6 %; Lymphocytes # (auto) 2.04 K/uL (1.2-3.4); Lymphocytes % (auto) 16.7 %; Mean Corpuscular Hemoglobin 27.6 pg (25.0-34.0); Mean Corpuscular Hgb Conc 31.4 g/dL (32.0-36.0); Mean Corpuscular Volume 87.7 fL (80.0-100.0); Mean Platelet Volume 9.7 fL (9.4-12.4); Monocytes # (auto) 0.69 K/uL (0.24-0.82); Monocytes % (auto) 5.6 %; Neutrophils % (auto) 70.9 %; Platelet Count 273 K/uL (130-400); RDW Coefficient of Variation 17.2 % (11.5-14.5); RDW Standard Deviation 55.3 fL (36.4-46.3); Red Blood Count 3.81 M/uL (4.63-6.08); White Blood Count 12.25 K/ul (4.8-10.8)
[2022-11-20 06:20] LABS: Calcium 8.6 mg/dl (8.5-10.1); Potassium 3.9 mmol/L (3.5-5.1)
[2022-11-20 06:26] LABS: BUN Creatinine Ratio 17.5 (10-20); Est GFR (African American) 68.1 ml/min; Est GFR (Non-African American) 58.8 ml/min
[2022-11-20 07:18] LABS: Estimated Average Glucose 103 mg/dl; Hemoglobin A1C 5.2 % (4.5-5.6)
[2022-11-20] MEDS: TORSEMIDE 20 MG TAB PO SCH (08:30)
[2022-11-20] MEDS: carvediloL 12.5 MG TAB PO SCH ×2 (08:30→17:41)
[2022-11-20] MEDS: ATORVASTATIN 40 MG TAB PO SCH (08:30)
[2022-11-20] MEDS: amLODIPine BESYLATE 5 MG TAB PO SCH (08:30)
[2022-11-20] MEDS: FINASTERIDE 5 MG TAB PO SCH (08:30)
[2022-11-20] MEDS: ASPIRIN 81 MG ECTAB PO SCH (08:30)
[2022-11-20] MEDS: PARoxetine HCL 20 MG TAB PO SCH (08:30)
[2022-11-20] MEDS: SENNA 8.6 MG TAB PO SCH (08:30)
[2022-11-20] MEDS: TAMSULOSIN HCL 0.4 MG CAP PO SCH (08:30)
[2022-11-20] MEDS: INSULIN ASPART PER UNIT SC SCH ×4 (08:35→20:31)
--- NOTE | 2022-11-20 09:23 | Communication Note ---
Date of Service: November 20, 2022 Patient also has superficial wound on abdominal fold on right side. On chronic finch. Has UTI. Started On iv Rocephin. Wound care consult.
--- NOTE | 2022-11-20 16:35 | Hospitalist Progress Note ---
Date of Service November 20, 2022 Assessment & Plan (1) Generalized weakness: (2) Pressure sore: (3) Poorly-controlled hypertension: (4) Weakness: (5) CAD (coronary artery disease): (6) Chronic heart failure with preserved ejection fraction (HFpEF): (7) Diabetes mellitus type 2 in obese: (8) Diastolic heart failure: (9) COPD (chronic obstructive pulmonary disease): (10) CKD (chronic kidney disease) stage 3, GFR 30-59 ml/min: (11) Obstructive sleep apnea on CPAP: Plan: This is a 77-year-old male with past medical history significant for type 2 diabetes, chronic respiratory failure with hypoxia, on home oxygen, history of COPD, obstructive sleep apnea, asthma, restrictive lung disease, chronic diastolic CHF, hypertension, GERD, morbid obesity, slow transit constipation, chronic kidney disease, stage III, gout, depression, generalized anxiety disor bettie, presents with ambulatory dysfunction and weakness. Ambulatory dysfunction Generalized weakness Deconditioning Was in rehab in April/May 2022 and has had declined functional status since then. Does not currently received home services and is cared for by . PT/OT, possible need for placement Weakness likely exacerbated in setting of UTI Fall precautions Complicated UTI UA abnormal, WBC 12.25, presenting with weakness. Urine cultx - positive for gram negative bacilli Started on empiric Rocephin on admission - cont. for now Currently has Fuller catheter - not clear if this is chronic, will discuss w/ pt's Sacral erythema, not likely pressure ulcer Superficial abdominal wound Present on admission. Large erythematous area. Turn Q2H, appreciate nursing care. Wound care nurse consulted Discussed in detail with wound care nurse- will re-eval pt on Wednesday, not likely pressure ulcer however moisture associated dermatitis Chronic respiratory failure in setting of COPD, asthma Continue his home oxygen, currently seems stable. Currently not on any inhalers. Consider CXR if develops SOB CKD III Initial Cr 1.2 (bl ~ 1.1-1.3). Continue to monitor DM II Continue his long-acting insulin and insulin sliding scale. Follow the blood sugars Gout Continue allopurinol HTN Normotensive. Continue amlodipine, Coreg BPH Continue finasteride, tamsulosin Chronic diastolic congestive heart failure Euvolemic, continue torsemide Depression Continue paroxetine and trazodone RENE CPAP HS DVT Ppx: SQ lovenox Code status: FULL PCP: Doberstien Dispo: Admitted to med/surg Patient seen in collaboration with Dr. Lucas. Please see addendum. A total of 50 minutes were spent with greater than 50% of that time face to face with the patient, personally reviewing all current laboratories, imaging studies, past medication reconciliation, outpatient chart review, and discussion with specialists to collaborate care for the patient with attending and utilization of translation services. Please see attending documentation for corrections and/or additions. Admission and Anticipated Discharge Date Admission Date: November 19, 2022 Supervising Physician Co-Signing Physician Notes Patient seen and examined by me, care coordinated with Melanie Cortez PA-C, please refer to her note above for further detail. Patient admitted last evening after being brought in by . Difficulty to take care of the patient at home. Patient was also found to have UTI. Not clear at this time if Fuller catheter is chronic or placed in the ED. Skin is erythematous on sacral area, scrotum, also small open wound in the lower abdomen area noted. This was discussed in detail with wound care nurse. Continue antibiotic for now, follow urine culture. Continue home medications. Continue to closely monitor. MD Shayy Subjective Seen and examined in 318. Feeling okay today. Unsure of why he is in the hospital but is alert and oriented to self, location and time. Was brought in by to ED due to ambulatory dysfunction and weakness. Is essentially bedbound at home, per and is unsteady on his feet. Is eating fine, per on admission. Denies any pain and is resting comfortably. Denies any fever, chills, lightheadedness, chest pain, shortness of breath, nausea, vomiting, abdominal pain, dysuria, diarrhea or constipation. Review of Systems Review of Systems: At least ten systems reviewed and negative except as noted in the HPI. Physical Exam Physical Exam: Gen: WD/WN, NAD, sitting in bedside chair, A&Ox3 but not situation, disheveled appearance HEENT: Normocephalic, atraumatic, conjunctivae moist, sclerae anicteric, mucous membranes moist Lung: Clear to Auscultation bilaterally, no wheezes/rales/rhonchi Heart: Regular rate, regular rhythm, no murmurs, rubs, or gallops Abdomen: Soft, NT, ND +BS x 4, +small open wound (lower abdomen) : Fuller cath placed, draining clear yellow urine Extremities: no edema Skin: Warm, no rash. + Sacral area erythematous with some excoriation , + erythematous scrotum Results & Data Results & Data ([facility]) Vital Signs (Past 12 Hours) Vital Signs Temp Pulse Resp BP Pulse Ox O2 Del Method O2 Flow Rate 11/20/22 14:43 36.6 C 86 130/67 94 Room Air 11/20/22 08:00 Nasal Cannula 2 11/20/22 07:22 36.5 C 88 16 130/70 99 Room Air Laboratory Results Short CBC 11/19/22 11/20/22 Range/Units 17:32 05:15 WBC 12.35 H 12.25 H (4.8-10.8) K/ul Hgb 12.3 L 10.5 L (14.0-18.0) g/dl Hct 38.6 L 33.4 L (40.1-51.0) % Plt Count 314 273 (130-400) K/uL BMP 11/19/22 11/20/22 17:32 05:15 Sodium 140 140 Potassium 4.2 3.9 Chloride 101 103 Carbon Dioxide 35 H 34 H BUN 22 21 Creatinine 1.28 1.20 Glucose 109 H 96 Calcium 9.1 8.6 Liver Function 11/19/22 Range/Units 17:32 Total Bilirubin 0.8 (0.2-1.0) mg/dl AST 10 L (13-39) U/L ALT 6 L (7-52) U/L Alkaline Phosphatase 68 (34-104) U/L Albumin 3.4 (3.4-5.0) gm/dl Urine 11/19/22 Range/Units 19:19 Urine Color Yellow Urine Appearance Turbid A (Clear) Urine pH 6.5 (4.5-7.5) Ur Specific Stone 1.013 (1.000-1.030) Urine Protein 1+ H (Negative) Urine Glucose (UA) Negative (Negative) Medications Administered Current Inpatient Medications Acetaminophen (Acetaminophen 325 Mg Tab) 650 mg PO Q4H PRN PRN Reason: pain/fever Stop: 12/19/22 22:08 Allopurinol (Allopurinol 300 Mg Tab) 300 mg PO HS [facility] Stop: 12/19/22 22:08 Last Admin: 11/19/22 22:39 Dose: 300 mg Amlodipine Besylate (Amlodipine Besylate 5 Mg Tab) 5 mg PO QAM [facility] Stop: 12/20/22 08:59 Last Admin: 11/20/22 08:30 Dose: 5 mg Aspirin (Aspirin 81 Mg Ectab) 81 mg PO DAILY [facility] Stop: 12/20/22 08:59 Last Admin: 11/20/22 08:30 Dose: 81 mg Atorvastatin Calcium (Atorvastatin 40 Mg Tab) 40 mg PO DAILY [facility] Stop: 12/20/22 08:59 Last Admin: 11/20/22 08:30 Dose: 40 mg Carvedilol (Carvedilol 12.5 Mg Tab) 12.5 mg PO BIDM [facility] Stop: 12/20/22 07:59 Last Admin: 11/20/22 08:30 Dose: 12.5 mg Dextrose (Dextrose 50% 50 Ml Syringe) 25 - 50 ml IV UD PRN; Protocol PRN Reason: Hypoglycemia Protocol Stop: 12/19/22 22:08 Enoxaparin Sodium (Enoxaparin Inj 40 Mg/0.4 Ml Syr) 40 mg SQ HS [facility] Stop: 12/19/22 22:59 Last Admin: 11/19/22 22:39 Dose: 40 mg Finasteride (Finasteride 5 Mg Tab) 5 mg PO QAM [facility] Stop: 12/20/22 08:59 Last Admin: 11/20/22 08:30 Dose: 5 mg Glucagon (Glucagon For Inj 1 Mg Vial) 1 mg SQ UD PRN; Protocol PRN Reason: Hypoglycemia Protocol Stop: 12/19/22 22:08 Glucose (Glucose 40% Gel 15 Gm Tube) 15 - 30 gm PO UD PRN; Protocol PRN Reason: Hypoglycemia Protocol Stop: 12/19/22 22:08 Glucose (Glucose 10 Tab/Tube) 4 - 8 tab PO UD PRN; Protocol PRN Reason: Hypoglycemia Treatment Stop: 12/19/22 22:08 Ceftriaxone Sodium 2,000 mg/ (Dextrose) 70 mls @ 100 mls/hr IV Q24H [facility]; Protocol Stop: 11/29/22 22:59 Last Infusion: 11/19/22 23:20 Dose: Infused Insulin Aspart (Insulin Aspart Per Unit) 0 units SC ACHS [facility] Stop: 12/19/22 22:08 Last Admin: 11/20/22 12:48 Dose: Not Given Insulin Glargine (Lantus Per Unit Charge) 24 units SQ HS [facility] Stop: 12/19/22 22:08 Last Admin: 11/19/22 22:27 Dose: Not Given Miconazole Nitrate (Miconazole Nitrate Powder 43 Gm) 1 appln EXT TID [facility] Stop: 12/20/22 20:59 Miscellaneous (Carbohydrates For Hypoglycemia ) 15 - 30 gm PO UD PRN PRN Reason: Hypoglycemia Protocol Stop: 12/19/22 22:08 Paroxetine HCl (Paroxetine Hcl 20 Mg Tab) 40 mg PO QAM [facility] Stop: 12/20/22 08:59 Last Admin: 11/20/22 08:30 Dose: 40 mg Polyethylene Glycol (Polyethylene (Miralax) 17 Gm Pack) 17 gm PO DAILY PRN PRN Reason: Constipation Stop: 12/19/22 22:08 Sennosides (Senna 8.6 Mg Tab) 8.6 mg PO DAILY [facility] Stop: 12/20/22 08:59 Last Admin: 11/20/22 08:30 Dose: 8.6 mg Tamsulosin HCl (Tamsulosin Hcl 0.4 Mg Cap) 0.4 mg PO QAM [facility] Stop: 12/20/22 08:59 Last Admin: 11/20/22 08:30 Dose: 0.4 mg Torsemide (Torsemide 20 Mg Tab) 20 mg PO DAILY [facility] Stop: 12/20/22 08:59 Last Admin: 11/20/22 08:30 Dose: 20 mg Trazodone HCl (Trazodone Hcl 50 Mg Tab) 50 mg PO HS [facility] Stop: 12/19/22 22:08 Last Admin: 11/19/22 22:39 Dose: 50 mg (1) Pressure sore Pressure injury location: sacral region Pressure injury stage: unspecified pressure injury stage Qualified Code(s): L89.159 - Pressure ulcer of sacral region, unspecified stage
[2022-11-20] MEDS: ENOXAPARIN INJ 40 MG/0.4 ML SYR SQ SCH (20:30)
[2022-11-20] MEDS: allopurinoL 300 MG TAB PO SCH (20:30)
[2022-11-20] MEDS: traZODone HCL 50 MG TAB PO SCH (20:31)
[2022-11-20] MEDS: LANTUS PER UNIT CHARGE SQ SCH (20:39)
[2022-11-20] MEDS: MICONAZOLE NITRATE POWDER 43 GM EXT SCH (20:44)
[2022-11-20] MEDS: cefTRIAXone SODIUM 2,000 MG in DEXTROSE 5% 50 ML IV SCH (21:59)
[2022-11-21 06:39] LABS: Hematocrit (blood only) 32.5 % (40.1-51.0); Hemoglobin 10.4 g/dl (14.0-18.0); Mean Corpuscular Hemoglobin 27.5 pg (25.0-34.0); Mean Platelet Volume 8.8 fL (9.4-12.4); Platelet Count 267 K/uL (130-400); RDW Coefficient of Variation 17.3 % (11.5-14.5); RDW Standard Deviation 54.6 fL (36.4-46.3); Red Blood Count 3.78 M/uL (4.63-6.08); White Blood Count 11.38 K/ul (4.8-10.8)
[2022-11-21 07:14] LABS: Calcium 8.7 mg/dl (8.5-10.1); Magnesium 1.9 mg/dl (1.7-2.4); Potassium 4.3 mmol/L (3.5-5.1)
[2022-11-21 07:19] LABS: BUN Creatinine Ratio 20.6 (10-20); Creatinine Clr Calc Pharmacy 51.2 ml/min; Est GFR (African American) 58.6 ml/min; Est GFR (Non-African American) 50.5 ml/min; Phosphorus 3.1 mg/dl (2.5-4.9)
[2022-11-21] MEDS: carvediloL 12.5 MG TAB PO SCH ×2 (08:43→08:44)
[2022-11-21] MEDS: ASPIRIN 81 MG ECTAB PO SCH (08:43)
[2022-11-21] MEDS: ATORVASTATIN 40 MG TAB PO SCH (08:43)
[2022-11-21] MEDS: FINASTERIDE 5 MG TAB PO SCH (08:43)
[2022-11-21] MEDS: TAMSULOSIN HCL 0.4 MG CAP PO SCH (08:44)
[2022-11-21] MEDS: amLODIPine BESYLATE 5 MG TAB PO SCH (08:44)
[2022-11-21] MEDS: TORSEMIDE 20 MG TAB PO SCH (08:44)
[2022-11-21] MEDS: PARoxetine HCL 20 MG TAB PO SCH (08:44)
[2022-11-21] MEDS: MICONAZOLE NITRATE POWDER 43 GM EXT SCH ×3 (08:45→20:30)
[2022-11-21] MEDS: SENNA 8.6 MG TAB PO SCH (08:45)
[2022-11-21] MEDS: INSULIN ASPART PER UNIT SC SCH ×4 (08:47→20:23)
--- NOTE | 2022-11-21 10:55 | Hospitalist Progress Note ---
Date of Service November 21, 2022 Assessment & Plan (1) Generalized weakness: (2) Pressure sore: (3) Poorly-controlled hypertension: (4) Weakness: (5) CAD (coronary artery disease): (6) Chronic heart failure with preserved ejection fraction (HFpEF): (7) Diabetes mellitus type 2 in obese: (8) Diastolic heart failure: (9) COPD (chronic obstructive pulmonary disease): (10) CKD (chronic kidney disease) stage 3, GFR 30-59 ml/min: (11) Obstructive sleep apnea on CPAP: Plan: This is a 77-year-old male with past medical history significant for type 2 diabetes, chronic respiratory failure with hypoxia, on home oxygen, history of COPD, obstructive sleep apnea, asthma, restrictive lung disease, chronic diastolic CHF, hypertension, GERD, morbid obesity, slow transit constipation, chronic kidney disease, stage III, gout, depression, generalized anxiety disor bettie, presents with ambulatory dysfunction and weakness. Ambulatory dysfunction Generalized weakness Deconditioning Was in rehab in April/May 2022 and has had declined functional status since then. Does not currently received home services and is cared for by . PT/OT, possible need for placement Weakness likely exacerbated in setting of UTI Fall precautions Complicated UTI UA abnormal, WBC 12.25, presenting with weakness. Urine cultx - E.coli + Proteus mirabilis Started on empiric Rocephin on admission - cont. for now E.coli resistant to ceftriaxone - start Augmentin Currently has Fuller catheter - not clear if this is chronic, will discuss w/ pt's Sacral erythema, not likely pressure ulcer Superficial abdominal wound Present on admission. Large erythematous area. Turn Q2H, appreciate nursing care. Wound care nurse consulted Discussed in detail with wound care nurse- will re-eval pt on Wednesday, not likely pressure ulcer however moisture associated dermatitis Chronic respiratory failure in setting of COPD, asthma Continue his home oxygen, currently seems stable. Currently not on any inhalers. Consider CXR if develops SOB CKD III Initial Cr 1.2 (bl ~ 1.1-1.3). Continue to monitor DM II Continue his long-acting insulin and insulin sliding scale. Follow the blood sugars Gout Continue allopurinol HTN Normotensive. Continue amlodipine, Coreg BPH Continue finasteride, tamsulosin Chronic diastolic congestive heart failure Euvolemic, continue torsemide Depression Continue paroxetine and trazodone RENE CPAP HS DVT Ppx: SQ lovenox Code status: FULL PCP: Dr. Guzman Dispo: Admitted to med/surg Admission and Anticipated Discharge Date Admission Date: November 19, 2022 Subjective Patient seen in follow-up of UTI, ambulatory dysfunction Was brought in by due to ambulatory dysfunction and weakness. Is essentially bedbound at home, per and is unsteady on his feet. Sitting up in bed in NAD He is able to answer simple questions appropriately, currently no complaints Denies any pain, fever, chills, lightheadedness, chest pain, shortness of breath, nausea, vomiting, abdominal pain, dysuria, diarrhea or constipation. Review of Systems Review of Systems: All systems reviewed & are unremarkable except as noted in Subjective Physical Exam Physical Exam: Gen: WD/WN, NAD, sitting up in bed, disheveled appearance HEENT: Normocephalic, atraumatic, conjunctivae moist, sclerae anicteric, mucous membranes moist, poor dentition Lung: Clear to Auscultation bilaterally, no wheezes/rales/rhonchi Heart: Regular rate, regular rhythm, no murmurs, rubs, or gallops Abdomen: Soft, NT, ND +BS x 4, +small open wound (lower abdomen) : Fuller cath placed, draining clear yellow urine Extremities: no edema Skin: Warm, + Sacral area erythematous with some excoriation , + erythematous scrotum Neuro/psych: Awake and alert, able to answer simple questions appropriately, moves extremities Results & Data Results & Data ([facility]) Vital Signs (Past 12 Hours) Vital Signs Temp Pulse Pulse Resp BP Pulse Ox O2 Del Method 11/21/22 07:25 36.5 C 86 17 121/69 94 Room Air 11/21/22 01:30 83 24 96 11/20/22 23:41 36.7 C 95 H 18 133/73 98 Nasal Cannula O2 Flow Rate 11/21/22 07:25 11/21/22 01:30 2 11/20/22 23:41 2 Laboratory Results 11/21/22 11/21/22 11/21/22 Range/Units 08:08 05:55 05:55 WBC 11.38 H (4.8-10.8) K/ul RBC 3.78 L (4.63-6.08) M/uL Hgb 10.4 L (14.0-18.0) g/dl Hct 32.5 L (40.1-51.0) % MCV 86.0 (80.0-100.0) fL MCH 27.5 (25.0-34.0) pg MCHC 32.0 (32.0-36.0) g/dL RDW Std Deviation 54.6 H (36.4-46.3) fL RDW Coeff of Alfonso 17.3 H (11.5-14.5) % Plt Count 267 (130-400) K/uL MPV 8.8 L (9.4-12.4) fL Sodium 140 (136-145) mmol/L Potassium 4.3 (3.5-5.1) mmol/L Chloride 102 (98-107) mmol/L Carbon Dioxide 33 H (21-32) mmol/L Anion Gap 5 (3-11) BUN 28 H (6-23) mg/dl Creatinine 1.36 (0.6-1.4) mg/dl Est Cr Clr Drug Dosing 51.2 ml/min Est GFR ( Amer) 58.6 ml/min Est GFR (Non-Af Amer) 50.5 ml/min BUN/Creatinine Ratio 20.6 H (10-20) Glucose 100 H (70-99(Fasting)) mg/dl POC Glucose 90 (70-99) mg/dl Calcium 8.7 (8.5-10.1) mg/dl Phosphorus 3.1 (2.5-4.9) mg/dl Magnesium 1.9 (1.7-2.4) mg/dl 11/20/22 11/20/22 11/20/22 Range/Units 20:31 17:10 12:46 WBC (4.8-10.8) K/ul RBC (4.63-6.08) M/uL Hgb (14.0-18.0) g/dl Hct (40.1-51.0) % MCV (80.0-100.0) fL MCH (25.0-34.0) pg MCHC (32.0-36.0) g/dL RDW Std Deviation (36.4-46.3) fL RDW Coeff of Alfonso (11.5-14.5) % Plt Count (130-400) K/uL MPV (9.4-12.4) fL Sodium (136-145) mmol/L Potassium (3.5-5.1) mmol/L Chloride (98-107) mmol/L Carbon Dioxide (21-32) mmol/L Anion Gap (3-11) BUN (6-23) mg/dl Creatinine (0.6-1.4) mg/dl Est Cr Clr Drug Dosing ml/min Est GFR ( Amer) ml/min Est GFR (Non-Af Amer) ml/min BUN/Creatinine Ratio (10-20) Glucose (70-99(Fasting)) mg/dl POC Glucose 129 H 121 H 139 H (70-99) mg/dl Calcium (8.5-10.1) mg/dl Phosphorus (2.5-4.9) mg/dl Magnesium (1.7-2.4) mg/dl Medications Administered Current Inpatient Medications Acetaminophen (Acetaminophen 325 Mg Tab) 650 mg PO Q4H PRN PRN Reason: pain/fever Stop: 12/19/22 22:08 Allopurinol (Allopurinol 300 Mg Tab) 300 mg PO HS [facility] Stop: 12/19/22 22:08 Last Admin: 11/20/22 20:30 Dose: 300 mg Amlodipine Besylate (Amlodipine Besylate 5 Mg Tab) 5 mg PO QAM [facility] Stop: 12/20/22 08:59 Last Admin: 11/21/22 08:44 Dose: 5 mg Aspirin (Aspirin 81 Mg Ectab) 81 mg PO DAILY [facility] Stop: 12/20/22 08:59 Last Admin: 11/21/22 08:43 Dose: 81 mg Atorvastatin Calcium (Atorvastatin 40 Mg Tab) 40 mg PO DAILY [facility] Stop: 12/20/22 08:59 Last Admin: 11/21/22 08:43 Dose: 40 mg Carvedilol (Carvedilol 12.5 Mg Tab) 12.5 mg PO BIDM [facility] Stop: 12/20/22 07:59 Last Admin: 11/21/22 08:44 Dose: 12.5 mg Dextrose (Dextrose 50% 50 Ml Syringe) 25 - 50 ml IV UD PRN; Protocol PRN Reason: Hypoglycemia Protocol Stop: 12/19/22 22:08 Enoxaparin Sodium (Enoxaparin Inj 40 Mg/0.4 Ml Syr) 40 mg SQ HS [facility] Stop: 12/19/22 22:59 Last Admin: 11/20/22 20:30 Dose: 40 mg Finasteride (Finasteride 5 Mg Tab) [address] [facility] Stop: 12/20/22 08:59 Last Admin: 11/21/22 08:43 Dose: 5 mg Glucagon (Glucagon For Inj 1 Mg Vial) 1 mg SQ UD PRN; Protocol PRN Reason: Hypoglycemia Protocol Stop: 12/19/22 22:08 Glucose (Glucose 40% Gel 15 Gm Tube) 15 - 30 gm PO UD PRN; Protocol PRN Reason: Hypoglycemia Protocol Stop: 12/19/22 22:08 Glucose (Glucose 10 Tab/Tube) 4 - 8 tab PO UD PRN; Protocol PRN Reason: Hypoglycemia Treatment Stop: 12/19/22 22:08 Ceftriaxone Sodium 2,000 mg/ (Dextrose) 70 mls @ 100 mls/hr IV Q24H [facility]; Sebastian col Stop: 11/29/22 22:59 Last Infusion: 11/20/22 22:42 Dose: Infused Insulin Aspart (Insulin Aspart Per Unit) [address] [facility] Stop: 12/19/22 22:08 Last Admin: 11/21/22 08:47 Dose: Not Given Insulin Glargine (Lantus Per Unit Charge) [address] [facility] Stop: 12/19/22 22:08 Last Admin: 11/20/22 20:39 Dose: 24 units Miconazole Nitrate (Miconazole Nitrate Powder 43 Gm) [address] [facility] Stop: 12/20/22 20:59 Last Admin: 11/21/22 08:45 Dose: 1 appln Miscellaneous (Carbohydrates For Hypoglycemia ) 15 - 30 gm PO UD PRN PRN Reason: Hypoglycemia Protocol Stop: 12/19/22 22:08 Paroxetine HCl (Paroxetine Hcl 20 Mg Tab) [address] [facility] Stop: 12/20/22 08:59 Last Admin: 11/21/22 08:44 Dose: 40 mg Polyethylene Glycol (Polyethylene (Miralax) 17 Gm Pack) 17 gm PO DAILY PRN PRN Reason: Constipation Stop: 12/19/22 22:08 Sennosides (Senna 8.6 Mg Tab) 8.[address] [facility] Stop: 12/20/22 08:59 Last Admin: 11/21/22 08:45 Dose: 8.6 mg Tamsulosin HCl (Tamsulosin Hcl 0.4 Mg Cap) 0.[address] [facility] Stop: 12/20/22 08:59 Last Admin: 11/21/22 08:44 Dose: 0.4 mg Torsemide (Torsemide 20 Mg Tab) [address] [facility] Stop: 12/20/22 08:59 Last Admin: 11/21/22 08:44 Dose: 20 mg Trazodone HCl (Trazodone Hcl 50 Mg Tab) 50 mg PO [facility] Stop: 12/19/22 22:08 Last Admin: 11/20/22 20:31 Dose: 50 mg (1) Pressure sore Pressure injury location: sacral region Pressure injury stage: unspecified pressure injury stage Qualified Code(s): L89.159 - Pressure ulcer of sacral region, unspecified stage
[2022-11-21] MEDS: ERTAPENEM SODIUM 1,000 MG in SYRINGE 0 ML IV SCH (13:51)
[2022-11-21] MEDS: ADVANCED PROBIOTIC 1250 MG CAPSULE PO SCH (13:51)
[2022-11-21] MEDS ORDERED: AMOXICILLIN/CLAVULANATE 875 MG TAB PO SCH (17:00)
[2022-11-21] MEDS: LANTUS PER UNIT CHARGE SQ SCH (20:28)
[2022-11-21] MEDS: traZODone HCL 50 MG TAB PO SCH (20:28)
[2022-11-21] MEDS: allopurinoL 300 MG TAB PO SCH (20:28)
[2022-11-21] MEDS: ACETAMINOPHEN 325 MG TAB PO PRN (20:29)
[2022-11-21] MEDS: ENOXAPARIN INJ 40 MG/0.4 ML SYR SQ SCH (20:29)
[2022-11-22] MEDS: ACETAMINOPHEN 325 MG TAB PO PRN (05:39)
[2022-11-22 05:41] LABS: Hematocrit (blood only) 33.4 % (40.1-51.0); Hemoglobin 10.8 g/dl (14.0-18.0); Mean Corpuscular Hemoglobin 28.1 pg (25.0-34.0); Mean Corpuscular Hgb Conc 32.3 g/dL (32.0-36.0); Mean Platelet Volume 9.1 fL (9.4-12.4); Platelet Count 264 K/uL (130-400); RDW Coefficient of Variation 17.3 % (11.5-14.5); Red Blood Count 3.84 M/uL (4.63-6.08); White Blood Count 11.82 K/ul (4.8-10.8)
[2022-11-22 06:13] LABS: BUN Creatinine Ratio 24.8 (10-20); Calcium 8.9 mg/dl (8.5-10.1); Creatinine Clr Calc Pharmacy 52.3 ml/min; Est GFR (African American) 60.2 ml/min; Est GFR (Non-African American) 51.9 ml/min; Magnesium 1.9 mg/dl (1.7-2.4); Phosphorus 3.3 mg/dl (2.5-4.9); Potassium 3.9 mmol/L (3.5-5.1)
--- NOTE | 2022-11-22 08:12 | Hospitalist Progress Note ---
Date of Service November 22, 2022 Assessment & Plan (1) Generalized weakness: (2) Pressure sore: (3) Poorly-controlled hypertension: (4) Weakness: (5) CAD (coronary artery disease): (6) Chronic heart failure with preserved ejection fraction (HFpEF): (7) Diabetes mellitus type 2 in obese: (8) Diastolic heart failure: (9) COPD (chronic obstructive pulmonary disease): (10) CKD (chronic kidney disease) stage 3, GFR 30-59 ml/min: (11) Obstructive sleep apnea on CPAP: Plan: This is a 77-year-old male with past medical history significant for type 2 diabetes, chronic respiratory failure with hypoxia, on home oxygen, history of COPD, obstructive sleep apnea, asthma, restrictive lung disease, chronic diastolic CHF, hypertension, GERD, morbid obesity, slow transit constipation, chronic kidney disease, stage III, gout, depression, generalized anxiety disor bettie, presents with ambulatory dysfunction and weakness. Ambulatory dysfunction Generalized weakness Deconditioning Was in rehab in April/May 2022 and has had declined functional status since then. Does not currently received home services and is cared for by . PT/OT, possible need for placement Weakness likely exacerbated in setting of UTI Fall precautions Complicated UTI UA abnormal, WBC 12.25, presenting with weakness. Urine cultx - ESBL E.coli + Proteus mirabilis Started on empiric Rocephin on admission - stopped Started Ertapenem, will cont. Pt w/ chronic Fuller catheter - catheter associated UTI Sacral erythema, not likely pressure ulcer Superficial abdominal wound Present on admission. Large erythematous area. Turn Q2H, appreciate nursing care. Wound care nurse consulted Discussed in detail with wound care nurse- will re-eval pt on Wednesday, not likely pressure ulcer however moisture associated dermatitis Chronic respiratory failure in setting of COPD, asthma Continue his home oxygen, currently seems stable. Currently not on any inhalers. Consider CXR if develops SOB CKD III Initial Cr 1.2 (bl ~ 1.1-1.3). Continue to monitor DM II Continue his long-acting insulin and insulin sliding scale. Follow the blood sugars Gout Continue allopurinol HTN Normotensive. Continue amlodipine, Coreg BPH Continue finasteride, tamsulosin Chronic diastolic congestive heart failure Euvolemic, continue torsemide Depression Continue paroxetine and trazodone RENE CPAP HS DVT Ppx: SQ lovenox Code status: FULL PCP: Dr. Guzman Dispo: Admitted to med/surg Admission and Anticipated Discharge Date Admission Date: November 19, 2022 Subjective Patient seen in follow-up of UTI, ambulatory dysfunction Was brought in by due to ambulatory dysfunction and weakness. Is essentially bedbound at home, per and is unsteady on his feet. Sitting up in bed in NAD He is able to answer simple questions appropriately, currently no complaints Denies any pain, fever, chills, lightheadedness, chest pain, shortness of breath, nausea, vomiting, abdominal pain, dysuria, diarrhea or constipation. Review of Systems Review of Systems: All systems reviewed & are unremarkable except as noted in Subjective Physical Exam Physical Exam: Gen: WD/WN, NAD, sitting up in bed, disheveled appearance HEENT: Normocephalic, atraumatic, conjunctivae moist, sclerae anicteric, mucous membranes moist, poor dentition Lung: Clear to Auscultation bilaterally, no wheezes/rales/rhonchi Heart: Regular rate, regular rhythm, no murmurs, rubs, or gallops Abdomen: Soft, NT, ND +BS x 4, +small open wound (lower abdomen) : Fuller cath placed, draining clear yellow urine Extremities: no edema Skin: Warm, + Sacral area erythematous with some excoriation , + erythematous scrotum Neuro/psych: Awake and alert, able to answer simple questions appropriately, moves extremities Results & Data Results & Data ([facility]) Vital Signs (Past 12 Hours) Vital Signs Temp Pulse Pulse Resp BP Pulse Ox O2 Del Method 11/22/22 07:49 36.4 C L 11/22/22 05:43 88 131/74 98 Nasal Cannula 11/22/22 00:57 88 21 99 11/21/22 23:20 36.7 C 87 123/68 97 Nasal Cannula 11/21/22 22:12 21 96 O2 Flow Rate 11/22/22 07:49 11/22/22 05:43 2 11/22/22 00:57 2 11/21/22 23:20 2 11/21/22 22:12 2 Laboratory Results 11/22/22 11/22/22 11/21/22 Range/Units 05:23 05:23 20:16 WBC 11.82 H (4.8-10.8) K/ul RBC 3.84 L (4.63-6.08) M/uL Hgb 10.8 L (14.0-18.0) g/dl Hct 33.4 L (40.1-51.0) % MCV 87.0 (80.0-100.0) fL MCH 28.1 (25.0-34.0) pg MCHC 32.3 (32.0-36.0) g/dL RDW Std Deviation 54.0 H (36.4-46.3) fL RDW Coeff of Alfonso 17.3 H (11.5-14.5) % Plt Count 264 (130-400) K/uL MPV 9.1 L (9.4-12.4) fL Sodium 137 (136-145) mmol/L Potassium 3.9 (3.5-5.1) mmol/L Chloride 101 (98-107) mmol/L Carbon Dioxide 31 (21-32) mmol/L Anion Gap 5 (3-11) BUN 33 H (6-23) mg/dl Creatinine 1.33 (0.6-1.4) mg/dl Est Cr Clr Drug Dosing 52.3 ml/min Est GFR ( Amer) 60.2 ml/min Est GFR (Non-Af Amer) 51.9 ml/min BUN/Creatinine Ratio 24.8 H (10-20) Glucose 95 (70-99(Fasting)) mg/dl POC Glucose 104 H (70-99) mg/dl Calcium 8.9 (8.5-10.1) mg/dl Phosphorus 3.3 (2.5-4.9) mg/dl Magnesium 1.9 (1.7-2.4) mg/dl 11/21/22 11/21/22 11/21/22 Range/Units 17:19 12:11 08:08 WBC (4.8-10.8) K/ul RBC (4.63-6.08) M/uL Hgb (14.0-18.0) g/dl Hct (40.1-51.0) % MCV (80.0-100.0) fL MCH (25.0-34.0) pg MCHC (32.0-36.0) g/dL RDW Std Deviation (36.4-46.3) fL RDW Coeff of Alfonso (11.5-14.5) % Plt Count (130-400) K/uL MPV (9.4-12.4) fL Sodium (136-145) mmol/L Potassium (3.5-5.1) mmol/L Chloride (98-107) mmol/L Carbon Dioxide (21-32) mmol/L Anion Gap (3-11) BUN (6-23) mg/dl Creatinine (0.6-1.4) mg/dl Est Cr Clr Drug Dosing ml/min Est GFR ( Amer) ml/min Est GFR (Non-Af Amer) ml/min BUN/Creatinine Ratio (10-20) Glucose (70-99(Fasting)) mg/dl POC Glucose 121 H 122 H 90 (70-99) mg/dl Calcium (8.5-10.1) mg/dl Phosphorus (2.5-4.9) mg/dl Magnesium (1.7-2.4) mg/dl Medications Administered Current Inpatient Medications Acetaminophen (Acetaminophen 325 Mg Tab) 650 mg PO Q4H PRN PRN Reason: pain/fever Stop: 12/19/22 22:08 Last Admin: 11/22/22 05:39 Dose: 650 mg Allopurinol (Allopurinol 300 Mg Tab) 300 mg PO HS GONZALO Stop: 12/19/22 22:08 Last Admin: 11/21/22 20:28 Dose: 300 mg Amlodipine Besylate (Amlodipine Besylate 5 Mg Tab) 5 mg PO QAM GONZALO Stop: 12/20/22 08:59 Last Admin: 11/21/22 08:44 Dose: 5 mg Aspirin (Aspirin 81 Mg Ectab) 81 mg PO DAILY GONZALO Stop: 12/20/22 08:59 Last Admin: 11/21/22 08:43 Dose: 81 mg Atorvastatin Calcium (Atorvastatin 40 Mg Tab) 40 mg PO DAILY GONZALO Stop: 12/20/22 08:59 Last Admin: 11/21/22 08:43 Dose: 40 mg Carvedilol (Carvedilol 12.5 Mg Tab) 12.5 mg PO BIDM GONZALO Stop: 12/20/22 07:59 Last Admin: 11/21/22 08:44 Dose: 12.5 mg Dextrose (Dextrose 50% 50 Ml Syringe) 25 - 50 ml IV UD PRN; Protocol PRN Reason: Hypoglycemia Protocol Stop: 12/19/22 22:08 Enoxaparin Sodium (Enoxaparin Inj 40 Mg/0.4 Ml Syr) 40 mg SQ HS ON LICENSE OF [facility] Stop: 12/19/22 22:59 Last Admin: 11/21/22 20:29 Dose: 40 mg Finasteride (Finasteride 5 Mg Tab) 5 mg PO QAM GONZALO Stop: 12/20/22 08:59 Last Admin: 11/21/22 08:43 Dose: 5 mg Glucagon (Glucagon For Inj 1 Mg Vial) 1 mg SQ UD PRN; Protocol PRN Reason: Hypoglycemia Protocol Stop: 12/19/22 22:08 Glucose (Glucose 40% Gel 15 Gm Tube) 15 - 30 gm PO UD PRN; Protocol PRN Reason: Hypoglycemia Protocol Stop: 12/19/22 22:08 Glucose (Glucose 10 Tab/Tube) 4 - 8 tab PO UD PRN; Protocol PRN Reason: Hypoglycemia Treatment Stop: 12/19/22 22:08 Ertapenem 1,000 mg/ Syringe 10 mls @ 2 mls/min IV Q24H ON LICENSE OF [facility]; Protocol Stop: 12/01/22 11:59 Last Admin: 11/21/22 13:51 Dose: 2 mls/min Insulin Aspart (Insulin Aspart Per Unit) 0 units SC ACHS ON LICENSE OF [facility] Stop: 12/19/22 22:08 Last Admin: 11/21/22 20:23 Dose: Not Given Insulin Glargine (Lantus Per Unit Charge) 24 units SQ HS ON LICENSE OF [facility] Stop: 12/19/22 22:08 Last Admin: 11/21/22 20:28 Dose: 24 units Lactobacillus Acidophilus (Advanced Probiotic 1250 Mg Capsule) 2 cap PO DAILY GONZALO Stop: 12/21/22 11:14 Last Admin: 11/21/22 13:51 Dose: 2 cap Miconazole Nitrate (Miconazole Nitrate Powder 43 Gm) 1 appln EXT TID ON LICENSE OF [facility] Stop: 12/20/22 20:59 Last Admin: 11/21/22 20:30 Dose: 1 appln Miscellaneous (Carbohydrates For Hypoglycemia ) 15 - 30 gm PO UD PRN PRN Reason: Hypoglycemia Protocol Stop: 12/19/22 22:08 Paroxetine HCl (Paroxetine Hcl 20 Mg Tab) 40 mg PO QAM ON LICENSE OF [facility] Stop: 12/20/22 08:59 Last Admin: 11/21/22 08:44 Dose: 40 mg Polyethylene Glycol (Polyethylene (Miralax) 17 Gm Pack) 17 gm PO DAILY PRN PRN Reason: Constipation Stop: 12/19/22 22:08 Sennosides (Senna 8.6 Mg Tab) 8.6 mg PO DAILY ON LICENSE OF [facility] Stop: 12/20/22 08:59 Last Admin: 11/21/22 08:45 Dose: 8.6 mg Tamsulosin HCl (Tamsulosin Hcl 0.4 Mg Cap) 0.4 mg PO QAM ON LICENSE OF [facility] Stop: 12/20/22 08:59 Last Admin: 11/21/22 08:44 Dose: 0.4 mg Torsemide (Torsemide 20 Mg Tab) 20 mg PO DAILY ON [facility] OF [facility] Stop: 12/20/22 08:59 Last Admin: 11/21/22 08:44 Dose: 20 mg Trazodone HCl (Trazodone Hcl 50 Mg Tab) 50 mg PO HS ON LICENSE OF [facility] Stop: 12/19/22 22:08 Last Admin: 11/21/22 20:28 Dose: 50 mg (1) Pressure sore Pressure injury location: sacral region Pressure injury stage: unspecified pressure injury stage Qualified Code(s): L89.159 - Pressure ulcer of sacral region, unspecified stage
[2022-11-22] MEDS: INSULIN ASPART PER UNIT SC SCH ×4 (09:33→20:41)
[2022-11-22] MEDS: TAMSULOSIN HCL 0.4 MG CAP PO SCH (09:40)
[2022-11-22] MEDS: TORSEMIDE 20 MG TAB PO SCH (09:40)
[2022-11-22] MEDS: ADVANCED PROBIOTIC 1250 MG CAPSULE PO SCH (09:40)
[2022-11-22] MEDS: carvediloL 12.5 MG TAB PO SCH ×2 (09:40→17:14)
[2022-11-22] MEDS: FINASTERIDE 5 MG TAB PO SCH (09:41)
[2022-11-22] MEDS: amLODIPine BESYLATE 5 MG TAB PO SCH (09:41)
[2022-11-22] MEDS: ASPIRIN 81 MG ECTAB PO SCH (09:41)
[2022-11-22] MEDS: PARoxetine HCL 20 MG TAB PO SCH (09:41)
[2022-11-22] MEDS: ATORVASTATIN 40 MG TAB PO SCH (09:42)
[2022-11-22] MEDS: MICONAZOLE NITRATE POWDER 43 GM EXT SCH ×3 (09:42→19:34)
[2022-11-22] MEDS: SENNA 8.6 MG TAB PO SCH (09:42)
[2022-11-22] MEDS: ERTAPENEM SODIUM 1,000 MG in SYRINGE 0 ML IV SCH (11:06)
[2022-11-22] MEDS: allopurinoL 300 MG TAB PO SCH (19:33)
[2022-11-22] MEDS: ENOXAPARIN INJ 40 MG/0.4 ML SYR SQ SCH (19:33)
[2022-11-22] MEDS: traZODone HCL 50 MG TAB PO SCH (19:34)
[2022-11-22] MEDS: LANTUS PER UNIT CHARGE SQ SCH (20:43)
[2022-11-23 05:59] LABS: Hematocrit (blood only) 32.7 % (40.1-51.0); Hemoglobin 10.6 g/dl (14.0-18.0); Mean Corpuscular Hemoglobin 27.6 pg (25.0-34.0); Mean Corpuscular Hgb Conc 32.4 g/dL (32.0-36.0); Mean Corpuscular Volume 85.2 fL (80.0-100.0); Mean Platelet Volume 9.6 fL (9.4-12.4); Platelet Count 292 K/uL (130-400); RDW Coefficient of Variation 17.5 % (11.5-14.5); RDW Standard Deviation 54.1 fL (36.4-46.3); Red Blood Count 3.84 M/uL (4.63-6.08); White Blood Count 12.53 K/ul (4.8-10.8)
[2022-11-23 06:20] LABS: BUN Creatinine Ratio 23.2 (10-20); Calcium 8.8 mg/dl (8.5-10.1); Est GFR (African American) 55.6 ml/min; Magnesium 1.9 mg/dl (1.7-2.4); Phosphorus 3.1 mg/dl (2.5-4.9); Potassium 3.8 mmol/L (3.5-5.1)
[2022-11-23] MEDS: PARoxetine HCL 20 MG TAB PO SCH (07:49)
[2022-11-23] MEDS: TORSEMIDE 20 MG TAB PO SCH (07:49)
[2022-11-23] MEDS: carvediloL 12.5 MG TAB PO SCH ×2 (07:49→17:38)
[2022-11-23] MEDS: amLODIPine BESYLATE 5 MG TAB PO SCH (07:50)
[2022-11-23] MEDS: ADVANCED PROBIOTIC 1250 MG CAPSULE PO SCH (07:50)
[2022-11-23] MEDS: SENNA 8.6 MG TAB PO SCH (07:50)
[2022-11-23] MEDS: TAMSULOSIN HCL 0.4 MG CAP PO SCH (07:50)
[2022-11-23] MEDS: FINASTERIDE 5 MG TAB PO SCH (07:50)
[2022-11-23] MEDS: ASPIRIN 81 MG ECTAB PO SCH (07:50)
[2022-11-23] MEDS: MICONAZOLE NITRATE POWDER 43 GM EXT SCH ×3 (07:51→20:38)
[2022-11-23] MEDS: ATORVASTATIN 40 MG TAB PO SCH (07:51)
[2022-11-23] MEDS: INSULIN ASPART PER UNIT SC SCH ×4 (08:39→20:57)
--- NOTE | 2022-11-23 10:51 | Hospitalist Progress Note ---
Date of Service November 23, 2022 Assessment & Plan (1) Generalized weakness: (2) Pressure sore: (3) Poorly-controlled hypertension: (4) Weakness: (5) CAD (coronary artery disease): (6) Chronic heart failure with preserved ejection fraction (HFpEF): (7) Diabetes mellitus type 2 in obese: (8) Diastolic heart failure: (9) COPD (chronic obstructive pulmonary disease): (10) CKD (chronic kidney disease) stage 3, GFR 30-59 ml/min: (11) Obstructive sleep apnea on CPAP: Plan: This is a 77-year-old male with past medical history significant for type 2 diabetes, chronic respiratory failure with hypoxia, on home oxygen, history of COPD, obstructive sleep apnea, asthma, restrictive lung disease, chronic diastolic CHF, hypertension, GERD, morbid obesity, slow transit constipation, chronic kidney disease, stage III, gout, depression, generalized anxiety disor bettie, presents with ambulatory dysfunction and weakness. Ambulatory dysfunction Generalized weakness Deconditioning Was in rehab in April/May 2022 and has had declined functional status since then. Does not currently received home services and is cared for by . PT/OT, possible need for placement Weakness likely exacerbated in setting of UTI Fall precautions Complicated UTI UA abnormal, WBC 12.25, presenting with weakness. Urine cultx - ESBL E.coli + Proteus mirabilis Started on empiric Rocephin on admission - stopped Started Ertapenem, will cont. Pt w/ chronic Fuller catheter - catheter associated UTI Sacral erythema, not likely pressure ulcer Superficial abdominal wound Present on admission. Large erythematous area. Turn Q2H, appreciate nursing care. Wound care nurse consulted Discussed in detail with wound care nurse- will re-eval pt today (11/23), not likely pressure ulcer however moisture associated dermatitis Chronic respiratory failure in setting of COPD, asthma Continue his home oxygen, currently seems stable. Currently not on any inhalers. Consider CXR if develops SOB CKD III Initial Cr 1.2 (bl ~ 1.1-1.3). Continue to monitor current Cr 1.4 - encourage PO fluid intake DM II Continue his long-acting insulin and insulin sliding scale. Follow the blood sugars Gout Continue allopurinol HTN Normotensive. Continue amlodipine, Coreg BPH Continue finasteride, tamsulosin Chronic diastolic congestive heart failure Euvolemic, continue torsemide Depression Continue paroxetine and trazodone RENE CPAP HS DVT Ppx: SQ lovenox Code status: FULL PCP: Dr. Guzman Dispo: Admitted to med/surg Admission and Anticipated Discharge Date Admission Date: November 19, 2022 Subjective Patient seen in follow-up of UTI, ambulatory dysfunction Was brought in by due to ambulatory dysfunction and weakness. Is essentially bedbound at home, per and is unsteady on his feet. Laying in bed in NAD, resting He is able to answer simple questions appropriately, currently no complaints Denies any pain, fever, chills, lightheadedness, chest pain, shortness of breath, nausea, vomiting, abdominal pain, dysuria, diarrhea or constipation. Review of Systems Review of Systems: All systems reviewed & are unremarkable except as noted in Subjective Physical Exam Physical Exam: Gen: WD/WN, NAD, laying in bed, disheveled appearance HEENT: Normocephalic, atraumatic, conjunctivae moist, sclerae anicteric, mucous membranes moist, poor dentition Lung: Clear to Auscultation bilaterally, no wheezes/rales/rhonchi Heart: Regular rate, regular rhythm, no murmurs, rubs, or gallops Abdomen: Soft, NT, ND +BS x 4, +small open wound (lower abdomen) : + Fuller cath, draining clear yellow urine Extremities: no edema Skin: Warm, + Sacral area erythematous with some excoriation , + erythematous scrotum Neuro/psych: Awake and alert, able to answer simple questions appropriately, moves extremities Results & Data Results & Data ([facility]) Vital Signs (Past 12 Hours) Vital Signs Temp Pulse Pulse Resp BP Pulse Ox O2 Del Method 11/23/22 07:00 Nasal Cannula 11/23/22 07:21 36.6 C 108 H 18 158/82 H 96 Nasal Cannula 11/23/22 02:10 85 19 97 O2 Flow Rate 11/23/22 07:00 2 11/23/22 07:21 2 11/23/22 02:10 2 Laboratory Results 11/23/22 11/23/22 11/23/22 Range/Units 08:11 05:44 05:44 WBC 12.53 H (4.8-10.8) K/ul RBC 3.84 L (4.63-6.08) M/uL Hgb 10.6 L (14.0-18.0) g/dl Hct 32.7 L (40.1-51.0) % MCV 85.2 (80.0-100.0) fL MCH 27.6 (25.0-34.0) pg MCHC 32.4 (32.0-36.0) g/dL RDW Std Deviation 54.1 H (36.4-46.3) fL RDW Coeff of Alfonso 17.5 H (11.5-14.5) % Plt Count 292 (130-400) K/uL MPV 9.6 (9.4-12.4) fL Sodium 138 (136-145) mmol/L Potassium 3.8 (3.5-5.1) mmol/L Chloride 101 (98-107) mmol/L Carbon Dioxide 30 (21-32) mmol/L Anion Gap 7 (3-11) BUN 33 H (6-23) mg/dl Creatinine 1.42 H (0.6-1.4) mg/dl Est Cr Clr Drug Dosing 49.0 ml/min Est GFR ( Amer) 55.6 ml/min Est GFR (Non-Af Amer) 48.0 ml/min BUN/Creatinine Ratio 23.2 H (10-20) Glucose 90 (70-99(Fasting)) mg/dl POC Glucose 102 H (70-99) mg/dl Calcium 8.8 (8.5-10.1) mg/dl Phosphorus 3.1 (2.5-4.9) mg/dl Magnesium 1.9 (1.7-2.4) mg/dl 11/22/22 11/22/22 11/22/22 Range/Units 20:25 17:08 12:14 WBC (4.8-10.8) K/ul RBC (4.63-6.08) M/uL Hgb (14.0-18.0) g/dl Hct (40.1-51.0) % MCV (80.0-100.0) fL MCH (25.0-34.0) pg MCHC (32.0-36.0) g/dL RDW Std Deviation (36.4-46.3) fL RDW Coeff of Alfonso (11.5-14.5) % Plt Count (130-400) K/uL MPV (9.4-12.4) fL Sodium (136-145) mmol/L Potassium (3.5-5.1) mmol/L Chloride (98-107) mmol/L Carbon Dioxide (21-32) mmol/L Anion Gap (3-11) BUN (6-23) mg/dl Creatinine (0.6-1.4) mg/dl Est Cr Clr Drug Dosing ml/min Est GFR ( Amer) ml/min Est GFR (Non-Af Amer) ml/min BUN/Creatinine Ratio (10-20) Glucose (70-99(Fasting)) mg/dl POC Glucose 101 H 111 H 111 H (70-99) mg/dl Calcium (8.5-10.1) mg/dl Phosphorus (2.5-4.9) mg/dl Magnesium (1.7-2.4) mg/dl Medications Administered Current Inpatient Medications Acetaminophen (Acetaminophen 325 Mg Tab) 650 mg PO Q4H PRN PRN Reason: pain/fever Stop: 12/19/22 22:08 Last Admin: 11/22/22 05:39 Dose: 650 mg Allopurinol (Allopurinol 300 Mg Tab) 300 mg PO HS GONZALO Stop: 12/19/22 22:08 Last Admin: 11/22/22 19:33 Dose: 300 mg Amlodipine Besylate (Amlodipine Besylate 5 Mg Tab) 5 mg PO QAM GONZALO Stop: 12/20/22 08:59 Last Admin: 11/23/22 07:50 Dose: 5 mg Aspirin (Aspirin 81 Mg Ectab) 81 mg PO DAILY GONZALO Stop: 12/20/22 08:59 Last Admin: 11/23/22 07:50 Dose: 81 mg Atorvastatin Calcium (Atorvastatin 40 Mg Tab) 40 mg PO DAILY GONZLAO Stop: 12/20/22 08:59 Last Admin: 11/23/22 07:51 Dose: 40 mg Carvedilol (Carvedilol 12.5 Mg Tab) 12.5 mg PO BIDM GONZALO Stop: 12/20/22 07:59 Last Admin: 11/23/22 07:49 Dose: 12.5 mg Dextrose (Dextrose 50% 50 Ml Syringe) 25 - 50 ml IV UD PRN; Protocol PRN Reason: Hypoglycemia Protocol Stop: 12/19/22 22:08 Enoxaparin Sodium (Enoxaparin Inj 40 Mg/0.4 Ml Syr) 40 mg SQ HS GONZALO Stop: 12/19/22 22:59 Last Admin: 11/22/22 19:33 Dose: 40 mg Finasteride (Finasteride 5 Mg Tab) 5 mg PO QAM [facility] Stop: 12/20/22 08:59 Last Admin: 11/23/22 07:50 Dose: 5 mg Glucagon (Glucagon For Inj 1 Mg Vial) 1 mg SQ UD PRN; Protocol PRN Reason: Hypoglycemia Protocol Stop: 12/19/22 22:08 Glucose (Glucose 40% Gel 15 Gm Tube) 15 - 30 gm PO UD PRN; Protocol PRN Reason: Hypoglycemia Protocol Stop: 12/19/22 22:08 Glucose (Glucose 10 Tab/Tube) 4 - 8 tab PO UD PRN; Protocol PRN Reason: Hypoglycemia Treatment Stop: 12/19/22 22:08 Ertapenem 1,000 mg/ Syringe 10 mls @ 2 mls/min IV Q24H [facility]; Protocol Stop: 12/01/22 11:59 Last Admin: 11/22/22 11:06 Dose: 2 mls/min Insulin Aspart (Insulin Aspart Per Unit) 0 units SC ACHS [facility] Stop: 12/19/22 22:08 Last Admin: 11/23/22 08:39 Dose: 5 units Insulin Glargine (Lantus Per Unit Charge) 24 units SQ HS [facility] Stop: 12/19/22 22:08 Last Admin: 11/22/22 20:43 Dose: 24 units Lactobacillus Acidophilus (Advanced Probiotic 1250 Mg Capsule) 2 cap PO DAILY [facility] Stop: 12/21/22 11:14 Last Admin: 11/23/22 07:50 Dose: 2 cap Miconazole Nitrate (Miconazole Nitrate Powder 43 Gm) 1 appln EXT TID [facility] Stop: 12/20/22 20:59 Last Admin: 11/23/22 07:51 Dose: 1 appln Miscellaneous (Carbohydrates For Hypoglycemia ) 15 - 30 gm PO UD PRN PRN Reason: Hypoglycemia Protocol Stop: 12/19/22 22:08 Paroxetine HCl (Paroxetine Hcl 20 Mg Tab) 40 mg PO QAM [facility] Stop: 12/20/22 08:59 Last Admin: 11/23/22 07:49 Dose: 40 mg Polyethylene Glycol (Polyethylene (Miralax) 17 Gm Pack) 17 gm PO DAILY PRN PRN Reason: Constipation Stop: 02/18/23 22:08 Sennosides (Senna 8.6 Mg Tab) 8.6 mg PO DAILY [facility] Stop: 12/20/22 08:59 Last Admin: 11/23/22 07:50 Dose: 8.6 mg Tamsulosin HCl (Tamsulosin Hcl 0.4 Mg Cap) 0.4 mg PO QAM [facility] Stop: 12/20/22 08:59 Last Admin: 11/23/22 07:50 Dose: 0.4 mg Torsemide (Torsemide 20 Mg Tab) 20 mg PO DAILY [facility] Stop: 12/20/22 08:59 Last Admin: 11/23/22 07:49 Dose: 20 mg Trazodone HCl (Trazodone Hcl 50 Mg Tab) 50 mg PO HS [facility] Stop: 12/19/22 22:08 Last Admin: 11/22/22 19:34 Dose: 50 mg (1) Pressure sore Pressure injury location: sacral region Pressure injury stage: unspecified pressure injury stage Qualified Code(s): L89.159 - Pressure ulcer of sacral region, unspecified stage
[2022-11-23] MEDS: ERTAPENEM SODIUM 1,000 MG in SYRINGE 0 ML IV SCH (11:59)
[2022-11-23] MEDS: ENOXAPARIN INJ 40 MG/0.4 ML SYR SQ SCH (20:38)
[2022-11-23] MEDS: traZODone HCL 50 MG TAB PO SCH (20:38)
[2022-11-23] MEDS: allopurinoL 300 MG TAB PO SCH (20:38)
[2022-11-23] MEDS: LANTUS PER UNIT CHARGE SQ SCH (20:57)
[2022-11-24 07:09] LABS: Hematocrit (blood only) 34.9 % (40.1-51.0); Hemoglobin 11.2 g/dl (14.0-18.0); Mean Corpuscular Hemoglobin 27.7 pg (25.0-34.0); Mean Corpuscular Hgb Conc 32.1 g/dL (32.0-36.0); Mean Corpuscular Volume 86.4 fL (80.0-100.0); Mean Platelet Volume 9.7 fL (9.4-12.4); Platelet Count 279 K/uL (130-400); RDW Coefficient of Variation 17.3 % (11.5-14.5); RDW Standard Deviation 55.1 fL (36.4-46.3); Red Blood Count 4.04 M/uL (4.63-6.08); White Blood Count 11.83 K/ul (4.8-10.8)
[2022-11-24 07:36] LABS: Calcium 9.1 mg/dl (8.5-10.1); Magnesium 1.9 mg/dl (1.7-2.4); Potassium 3.9 mmol/L (3.5-5.1)
[2022-11-24] MEDS: ASPIRIN 81 MG ECTAB PO SCH (07:37)
[2022-11-24] MEDS: ATORVASTATIN 40 MG TAB PO SCH (07:38)
[2022-11-24] MEDS: ADVANCED PROBIOTIC 1250 MG CAPSULE PO SCH (07:38)
[2022-11-24] MEDS: amLODIPine BESYLATE 5 MG TAB PO SCH (07:38)
[2022-11-24] MEDS: TAMSULOSIN HCL 0.4 MG CAP PO SCH (07:38)
[2022-11-24] MEDS: TORSEMIDE 20 MG TAB PO SCH (07:38)
[2022-11-24] MEDS: MICONAZOLE NITRATE POWDER 43 GM EXT SCH ×3 (07:38→21:47)
[2022-11-24] MEDS: SENNA 8.6 MG TAB PO SCH (07:38)
[2022-11-24] MEDS: FINASTERIDE 5 MG TAB PO SCH (07:38)
[2022-11-24] MEDS: PARoxetine HCL 20 MG TAB PO SCH (07:38)
[2022-11-24 07:41] LABS: BUN Creatinine Ratio 25.4 (10-20); Creatinine Clr Calc Pharmacy 51.9 ml/min; Est GFR (African American) 59.6 ml/min; Est GFR (Non-African American) 51.5 ml/min; Phosphorus 3.7 mg/dl (2.5-4.9)
[2022-11-24] MEDS: INSULIN ASPART PER UNIT SC SCH ×4 (08:38→21:50)
[2022-11-24] MEDS: carvediloL 12.5 MG TAB PO SCH ×2 (09:40→17:31)
[2022-11-24] MEDS: ERTAPENEM SODIUM 1,000 MG in SYRINGE 0 ML IV SCH (11:57)
--- NOTE | 2022-11-24 16:27 | Hospitalist Progress Note ---
Date of Service November 24, 2022 Assessment & Plan (1) Generalized weakness: (2) Pressure sore: (3) Poorly-controlled hypertension: (4) Weakness: (5) CAD (coronary artery disease): (6) Chronic heart failure with preserved ejection fraction (HFpEF): (7) Diabetes mellitus type 2 in obese: (8) Diastolic heart failure: (9) COPD (chronic obstructive pulmonary disease): (10) CKD (chronic kidney disease) stage 3, GFR 30-59 ml/min: (11) Obstructive sleep apnea on CPAP: Plan: This is a 77-year-old male with past medical history significant for type 2 diabetes, chronic respiratory failure with hypoxia, on home oxygen, history of COPD, obstructive sleep apnea, asthma, restrictive lung disease, chronic diastolic CHF, hypertension, GERD, morbid obesity, slow transit constipation, chronic kidney disease, stage III, gout, depression, generalized anxiety disor bettie, presents with ambulatory dysfunction and weakness. Ambulatory dysfunction Generalized weakness Deconditioning Was in rehab in April/May 2022 and has had declined functional status since then. Does not currently received home services and is cared for by . PT/OT, possible need for placement Weakness likely exacerbated in setting of UTI Fall precautions Complicated UTI UA abnormal, WBC 12.25, presenting with weakness. Urine cultx - ESBL E.coli + Proteus mirabilis Started on empiric Rocephin on admission - stopped Started Ertapenem, will cont. Pt w/ chronic Fuller catheter - catheter associated UTI Sacral erythema, deep tissue injury/pressure ulcer, POA Superficial abdominal wound Present on admission. Large erythematous area. Turn Q2H, appreciate nursing care. Wound care nurse consulted Discussed in detail with wound care nurse- was re-evaluated on (11/23) Chronic respiratory failure in setting of COPD, asthma Continue his home oxygen, currently seems stable. Currently not on any inhalers. Consider CXR if develops SOB CKD III Initial Cr 1.2 (bl ~ 1.1-1.3). Continue to monitor current Cr 1.3 - encourage PO fluid intake DM II Continue his long-acting insulin and insulin sliding scale. Follow the blood sugars Gout Continue allopurinol HTN Normotensive. Continue amlodipine, Coreg BPH Continue finasteride, tamsulosin Chronic diastolic congestive heart failure Euvolemic, continue torsemide Depression Continue paroxetine and trazodone RENE CPAP HS DVT Ppx: SQ lovenox Code status: FULL PCP: Dr. Guzman Dispo: med/surg Admission and Anticipated Discharge Date Admission Date: November 19, 2022 Subjective Patient seen in follow-up of UTI, ambulatory dysfunction Was brought in by due to ambulatory dysfunction and weakness. Is essentially bedbound at home, per and is unsteady on his feet. Laying in bed in NAD, nursing staff present at the bedside He is able to answer simple questions appropriately, currently no complaints Denies any pain, fever, chills, lightheadedness, chest pain, shortness of breath, nausea, vomiting, abdominal pain, dysuria, diarrhea or constipation. Review of Systems Review of Systems: All systems reviewed & are unremarkable except as noted in Subjective Physical Exam Physical Exam: Gen: WD/WN, NAD, laying in bed, disheveled appearance HEENT: Normocephalic, atraumatic, conjunctivae moist, sclerae anicteric, mucous membranes moist, poor dentition Lung: Clear to Auscultation bilaterally, no wheezes/rales/rhonchi Heart: Regular rate, regular rhythm, no murmurs, rubs, or gallops Abdomen: Soft, NT, ND +BS x 4, +small open wound (lower abdomen) : + Fuller cath, draining clear yellow urine Extremities: no edema Skin: Warm, + Sacral area erythematous with some excoriation , + erythematous scrotum (deep tissue injury/pressure ulcer) Neuro/psych: Awake and alert, able to answer simple questions appropriately, moves extremities Results & Data Results & Data ([facility]) Vital Signs (Past 12 Hours) Vital Signs Temp Pulse Resp BP Pulse Ox O2 Del Method O2 Flow Rate 11/24/22 15:43 36.7 C 82 16 138/56 L 98 Nasal Cannula 2 11/24/22 07:35 Nasal Cannula 2 11/24/22 07:27 36.5 C 94 H 16 133/75 97 Nasal Cannula 2 Laboratory Results 11/24/22 11/24/22 11/24/22 Range/Units 12:13 08:21 06:31 WBC 11.83 H (4.8-10.8) K/ul RBC 4.04 L (4.63-6.08) M/uL Hgb 11.2 L (14.0-18.0) g/dl Hct 34.9 L (40.1-51.0) % MCV 86.4 (80.0-100.0) fL MCH 27.7 (25.0-34.0) pg MCHC 32.1 (32.0-36.0) g/dL RDW Std Deviation 55.1 H (36.4-46.3) fL RDW Coeff of Alfonso 17.3 H (11.5-14.5) % Plt Count 279 (130-400) K/uL MPV 9.7 (9.4-12.4) fL Sodium (136-145) mmol/L Potassium (3.5-5.1) mmol/L Chloride (98-107) mmol/L Carbon Dioxide (21-32) mmol/L Anion Gap (3-11) BUN (6-23) mg/dl Creatinine (0.6-1.4) mg/dl Est Cr Clr Drug Dosing ml/min Est GFR ( Amer) ml/min Est GFR (Non-Af Amer) ml/min BUN/Creatinine Ratio (10-20) Glucose (70-99(Fasting)) mg/dl POC Glucose 99 87 (70-99) mg/dl Calcium (8.5-10.1) mg/dl Phosphorus (2.5-4.9) mg/dl Magnesium (1.7-2.4) mg/dl 11/24/22 11/24/22 11/24/22 Range/Units 06:31 04:01 00:12 WBC (4.8-10.8) K/ul RBC (4.63-6.08) M/uL Hgb (14.0-18.0) g/dl Hct (40.1-51.0) % MCV (80.0-100.0) fL MCH (25.0-34.0) pg MCHC (32.0-36.0) g/dL RDW Std Deviation (36.4-46.3) fL RDW Coeff of Alfonso (11.5-14.5) % Plt Count (130-400) K/uL MPV (9.4-12.4) fL Sodium 139 (136-145) mmol/L Potassium 3.9 (3.5-5.1) mmol/L Chloride 101 (98-107) mmol/L Carbon Dioxide 33 H (21-32) mmol/L Anion Gap 5 (3-11) BUN 34 H (6-23) mg/dl Creatinine 1.34 (0.6-1.4) mg/dl Est Cr Clr Drug Dosing 51.9 ml/min Est GFR ( Amer) 59.6 ml/min Est GFR (Non-Af Amer) 51.5 ml/min BUN/Creatinine Ratio 25.4 H (10-20) Glucose 84 (70-99(Fasting)) mg/dl POC Glucose 94 100 H (70-99) mg/dl Calcium 9.1 (8.5-10.1) mg/dl Phosphorus 3.7 (2.5-4.9) mg/dl Magnesium 1.9 (1.7-2.4) mg/dl 11/23/22 11/23/22 Range/Units 20:37 17:15 WBC (4.8-10.8) K/ul RBC (4.63-6.08) M/uL Hgb (14.0-18.0) g/dl Hct (40.1-51.0) % MCV (80.0-100.0) fL MCH (25.0-34.0) pg MCHC (32.0-36.0) g/dL RDW Std Deviation (36.4-46.3) fL RDW Coeff of Alfonso (11.5-14.5) % Plt Count (130-400) K/uL MPV (9.4-12.4) fL Sodium (136-145) mmol/L Potassium (3.5-5.1) mmol/L Chloride (98-107) mmol/L Carbon Dioxide (21-32) mmol/L Anion Gap (3-11) BUN (6-23) mg/dl Creatinine (0.6-1.4) mg/dl Est Cr Clr Drug Dosing ml/min Est GFR ( Amer) ml/min Est GFR (Non-Af Amer) ml/min BUN/Creatinine Ratio (10-20) Glucose (70-99(Fasting)) mg/dl POC Glucose 93 108 H (70-99) mg/dl Calcium (8.5-10.1) mg/dl Phosphorus (2.5-4.9) mg/dl Magnesium (1.7-2.4) mg/dl Medications Administered Current Inpatient Medications Acetaminophen (Acetaminophen 325 Mg Tab) 650 mg PO Q4H PRN PRN Reason: pain/fever Stop: 12/19/22 22:08 Last Admin: 11/22/22 05:39 Dose: 650 mg Allopurinol (Allopurinol 300 Mg Tab) 300 mg PO HS [facility] Stop: 12/19/22 22:08 Last Admin: 11/23/22 20:38 Dose: 300 mg Amlodipine Besylate (Amlodipine Besylate 5 Mg Tab) 5 mg PO QAM [facility] Stop: 12/20/22 08:59 Last Admin: 11/24/22 07:38 Dose: 5 mg Aspirin (Aspirin 81 Mg Ectab) 81 mg PO DAILY [facility] Stop: 12/20/22 08:59 Last Admin: 11/24/22 07:37 Dose: 81 mg Atorvastatin Calcium (Atorvastatin 40 Mg Tab) 40 mg PO DAILY [facility] Stop: 12/20/22 08:59 Last Admin: 11/24/22 07:38 Dose: 40 mg Carvedilol (Carvedilol 12.5 Mg Tab) 12.5 mg PO BIDM [facility] Stop: 12/20/22 07:59 Last Admin: 11/24/22 09:40 Dose: 12.5 mg Dextrose (Dextrose 50% 50 Ml Syringe) 25 - 50 ml IV UD PRN; Protocol PRN Reason: Hypoglycemia Protocol Stop: 12/19/22 22:08 Enoxaparin Sodium (Enoxaparin Inj 40 Mg/0.4 Ml Syr) 40 mg SQ HS [facility] Stop: 12/19/22 22:59 Last Admin: 11/23/22 20:38 Dose: 40 mg Finasteride (Finasteride 5 Mg Tab) 5 mg PO QAM [facility] Stop: 12/20/22 08:59 Last Admin: 11/24/22 07:38 Dose: 5 mg Glucagon (Glucagon For Inj 1 Mg Vial) 1 mg SQ UD PRN; Protocol PRN Reason: Hypoglycemia Protocol Stop: 12/19/22 22:08 Glucose (Glucose 40% Gel 15 Gm Tube) 15 - 30 gm PO UD PRN; Protocol PRN Reason: Hypoglycemia Protocol Stop: 12/19/22 22:08 Glucose (Glucose 10 Tab/Tube) 4 - 8 tab PO UD PRN; Protocol PRN Reason: Hypoglycemia Treatment Stop: 12/19/22 22:08 Ertapenem 1,000 mg/ Syringe 10 mls @ 2 mls/min IV Q24H [facility]; Protocol Stop: 12/01/22 11:59 Last Admin: 11/24/22 11:57 Dose: 2 mls/min Insulin Aspart (Insulin Aspart Per Unit) 0 units SC ACHS [facility] Stop: 12/19/22 22:08 Last Admin: 11/24/22 12:53 Dose: 5 units Insulin Glargine (Lantus Per Unit Charge) 20 units SQ HS [facility] Stop: 12/23/22 20:59 Last Admin: 11/23/22 20:57 Dose: 20 units Lactobacillus Acidophilus (Advanced Probiotic 1250 Mg Capsule) 2 cap PO DAILY [facility] Stop: 12/21/22 11:14 Last Admin: 11/24/22 07:38 Dose: 2 cap Miconazole Nitrate (Miconazole Nitrate Powder 43 Gm) 1 appln EXT TID [facility] Stop: 12/20/22 20:59 Last Admin: 11/24/22 13:42 Dose: 1 appln Miscellaneous (Carbohydrates For Hypoglycemia ) 15 - 30 gm PO UD PRN PRN Reason: Hypoglycemia Protocol Stop: 12/19/22 22:08 Paroxetine HCl (Paroxetine Hcl 20 Mg Tab) 40 mg PO QAM [facility] Stop: 12/20/22 08:59 Last Admin: 11/24/22 07:38 Dose: 40 mg Polyethylene Glycol (Polyethylene (Miralax) 17 Gm Pack) 17 gm PO DAILY PRN PRN Reason: Constipation Stop: 12/19/22 22:08 Sennosides (Senna 8.6 Mg Tab) 8.6 mg PO DAILY [facility] Stop: 12/20/22 08:59 Last Admin: 11/24/22 07:38 Dose: 8.6 mg Tamsulosin HCl (Tamsulosin Hcl 0.4 Mg Cap) 0.4 mg PO QAM [facility] Stop: 12/20/22 08:59 Last Admin: 11/24/22 07:38 Dose: 0.4 mg Torsemide (Torsemide 20 Mg Tab) 20 mg PO DAILY [facility] Stop: 12/20/22 08:59 Last Admin: 11/24/22 07:38 Dose: 20 mg Trazodone HCl (Trazodone Hcl 50 Mg Tab) 50 mg PO HS [facility] Stop: 12/19/22 22:08 Last Admin: 11/23/22 20:38 Dose: 50 mg (1) Pressure sore Pressure injury location: sacral region Pressure injury stage: unspecified pressure injury stage Qualified Code(s): L89.159 - Pressure ulcer of sacral region, unspecified stage
[2022-11-24] MEDS: ENOXAPARIN INJ 40 MG/0.4 ML SYR SQ SCH (21:48)
[2022-11-24] MEDS: traZODone HCL 50 MG TAB PO SCH (21:49)
[2022-11-24] MEDS: allopurinoL 300 MG TAB PO SCH (21:50)
[2022-11-24] MEDS: LANTUS PER UNIT CHARGE SQ SCH (21:50)
[2022-11-25 06:49] LABS: Hematocrit (blood only) 30.9 % (40.1-51.0); Hemoglobin 9.9 g/dl (14.0-18.0); Mean Corpuscular Hemoglobin 27.7 pg (25.0-34.0); Mean Corpuscular Volume 86.3 fL (80.0-100.0); Mean Platelet Volume 8.9 fL (9.4-12.4); Platelet Count 268 K/uL (130-400); RDW Coefficient of Variation 17.5 % (11.5-14.5); RDW Standard Deviation 55.3 fL (36.4-46.3); Red Blood Count 3.58 M/uL (4.63-6.08); White Blood Count 12.01 K/ul (4.8-10.8)
[2022-11-25 06:59] LABS: BUN Creatinine Ratio 23.7 (10-20); Calcium 8.9 mg/dl (8.5-10.1); Est GFR (African American) 57.1 ml/min; Est GFR (Non-African American) 49.2 ml/min; Magnesium 1.9 mg/dl (1.7-2.4); Phosphorus 3.4 mg/dl (2.5-4.9); Potassium 3.9 mmol/L (3.5-5.1)
[2022-11-25] MEDS: INSULIN ASPART PER UNIT SC SCH ×4 (08:19→20:59)
[2022-11-25] MEDS: TAMSULOSIN HCL 0.4 MG CAP PO SCH (08:22)
[2022-11-25] MEDS: ADVANCED PROBIOTIC 1250 MG CAPSULE PO SCH (08:22)
[2022-11-25] MEDS: ATORVASTATIN 40 MG TAB PO SCH (08:22)
[2022-11-25] MEDS: amLODIPine BESYLATE 5 MG TAB PO SCH (08:22)
[2022-11-25] MEDS: SENNA 8.6 MG TAB PO SCH (08:22)
[2022-11-25] MEDS: TORSEMIDE 20 MG TAB PO SCH (08:22)
[2022-11-25] MEDS: carvediloL 12.5 MG TAB PO SCH ×2 (08:23→17:48)
[2022-11-25] MEDS: PARoxetine HCL 20 MG TAB PO SCH (08:23)
[2022-11-25] MEDS: ASPIRIN 81 MG ECTAB PO SCH (08:23)
[2022-11-25] MEDS: MICONAZOLE NITRATE POWDER 43 GM EXT SCH ×3 (08:23→20:45)
[2022-11-25] MEDS: FINASTERIDE 5 MG TAB PO SCH (08:23)
[2022-11-25] MEDS: ERTAPENEM SODIUM 1,000 MG in SYRINGE 0 ML IV SCH (12:57)
--- NOTE | 2022-11-25 15:49 | Hospitalist Progress Note ---
Date of Service November 25, 2022 Assessment & Plan (1) Generalized weakness: (2) Pressure sore: (3) Poorly-controlled hypertension: (4) Weakness: (5) CAD (coronary artery disease): (6) Chronic heart failure with preserved ejection fraction (HFpEF): (7) Diabetes mellitus type 2 in obese: (8) Diastolic heart failure: (9) COPD (chronic obstructive pulmonary disease): (10) CKD (chronic kidney disease) stage 3, GFR 30-59 ml/min: (11) Obstructive sleep apnea on CPAP: Plan: Patient is a 77 yr male with H/O DM II, Chronic respiratory failure with hypoxia, on home oxygen, COPD, obstructive sleep apnea, asthma, restrictive lung disease, chronic diastolic CHF, hypertension, GERD, morbid obesity, slow transit constipation, chronic kidney disease, stage III, gout, depression, generalized anxiety disorder, presents with ambulatory dysfunction and weakness. Ambulatory dysfunction Generalized weakness Deconditioning Fall precautions May need Rehab Continue PT/OT Complicated UTI Urine culture: ESBL E.coli + Proteus mirabilis Chronic Fuller Catheter Continue Ertapenem Sacral erythema, deep tissue injury/pressure ulcer, POA Superficial abdominal wound Continue wound care Chronic respiratory failure in setting of COPD, asthma Continue home oxygen CKD III Baseline Cr ~ 1.1-1.3 Monitor renal function current Cr 1.3 DM II Continue Insulin Monitor BGs Chronic diastolic heart failure Continue home diuretics Gout Continue allopurinol HTN Continue amlodipine, Coreg BPH Continue finasteride, tamsulosin Chronic diastolic congestive heart failure Continue torsemide Depression Continue paroxetine, trazodone RENE CPAP HS DVT Px: SQ Lovenox Code status: FULL CODE Admission and Anticipated Discharge Date Admission Date: November 19, 2022 Subjective Patient is seen and examined at bedside States having sacral region pain No other complaints Denies any chest pain, dyspnea, dizziness, nausea, abdominal pain Review of Systems Review of Systems: All systems reviewed & are unremarkable except as noted in Subjective Physical Exam Physical Exam: Physical Exam: Vitals signs as noted above General Appearance:Chronic ill appearing, no apparent distress Head: normocephalic, Atraumatic Eyes: normal inspection, EOMI Neck: supple, Trachea midline Respiratory/Chest: Normal breath sounds, CTA, No accessory muscle use Cardiovascular: S1, S2, + murmur Abdomen/GI:Soft, Non tender, Bowel sounds present Extremities/Musculoskeletal:normal inspection, no edema Neurologic/Psych:AAOX3, grossly no focal neurological deficits Skin: Sacral area erythematous with some excoriation, erythematous scrotum Results & Data Results & Data ([facility]) Vital Signs (Past 12 Hours) Vital Signs Temp Pulse Resp BP Pulse Ox O2 Del Method O2 Flow Rate 11/25/22 15:07 36.8 C 84 16 118/65 98 Nasal Cannula 2 11/25/22 07:13 36.4 C L 78 16 122/71 99 Nasal Cannula 2 Laboratory Results Short CBC 11/25/22 Range/Units 05:48 WBC 12.01 H (4.8-10.8) K/ul Hgb 9.9 L (14.0-18.0) g/dl Hct 30.9 L (40.1-51.0) % Plt Count 268 (130-400) K/uL BMP 11/25/22 05:48 Sodium 138 Potassium 3.9 Chloride 101 Carbon Dioxide 33 H BUN 33 H Creatinine 1.39 Glucose 82 Calcium 8.9 (1) Pressure sore Pressure injury location: sacral region Pressure injury stage: unspecified pressure injury stage Qualified Code(s): L89.159 - Pressure ulcer of sacral region, unspecified stage
[2022-11-25] MEDS: ENOXAPARIN INJ 40 MG/0.4 ML SYR SQ SCH (20:44)
[2022-11-25] MEDS: allopurinoL 300 MG TAB PO SCH (20:44)
[2022-11-25] MEDS: traZODone HCL 50 MG TAB PO SCH (20:44)
[2022-11-25] MEDS: LANTUS PER UNIT CHARGE SQ SCH (20:59)
[2022-11-26] MEDS: SENNA 8.6 MG TAB PO SCH (07:49)
[2022-11-26] MEDS: TAMSULOSIN HCL 0.4 MG CAP PO SCH (07:49)
[2022-11-26] MEDS: TORSEMIDE 20 MG TAB PO SCH (07:49)
[2022-11-26] MEDS: ATORVASTATIN 40 MG TAB PO SCH (07:49)
[2022-11-26] MEDS: carvediloL 12.5 MG TAB PO SCH ×2 (07:49→16:54)
[2022-11-26] MEDS: ADVANCED PROBIOTIC 1250 MG CAPSULE PO SCH (07:49)
[2022-11-26] MEDS: amLODIPine BESYLATE 5 MG TAB PO SCH (07:50)
[2022-11-26] MEDS: FINASTERIDE 5 MG TAB PO SCH (07:50)
[2022-11-26] MEDS: ASPIRIN 81 MG ECTAB PO SCH (07:50)
[2022-11-26] MEDS: PARoxetine HCL 20 MG TAB PO SCH (07:50)
[2022-11-26] MEDS: MICONAZOLE NITRATE POWDER 43 GM EXT SCH ×3 (07:52→20:23)
[2022-11-26 08:02] LABS: BUN Creatinine Ratio 25.2 (10-20); Calcium 9.1 mg/dl (8.5-10.1); Creatinine Clr Calc Pharmacy 58.5 ml/min; Est GFR (African American) 68.8 ml/min; Est GFR (Non-African American) 59.4 ml/min; Potassium 3.8 mmol/L (3.5-5.1)
[2022-11-26] MEDS: INSULIN ASPART PER UNIT SC SCH ×4 (08:25→20:23)
[2022-11-26 09:27] LABS: Basophils # (auto) 0.06 K/uL (0-0.2); Basophils % (auto) 0.5 %; Eosinophils # (auto) 0.92 K/uL (0-0.50); Eosinophils % (auto) 8.2 %; Hematocrit (blood only) 34.4 % (42.0-52.0); Hemoglobin 10.9 g/dl (14.0-18.0); Immature Granulocytes # (auto) 0.07 K/uL (0.01-0.20); Immature Granulocytes % (auto) 0.6 %; Lymphocytes # (auto) 1.93 K/uL (1.2-3.4); Lymphocytes % (auto) 17.1 %; Mean Corpuscular Hemoglobin 27.6 pg (25.0-34.0); Mean Corpuscular Hgb Conc 31.7 g/dL (32.0-36.0); Mean Corpuscular Volume 87.1 fL (80.0-100.0); Mean Platelet Volume 9.6 fL (9.4-12.4); Monocytes # (auto) 0.68 K/uL (0.11-0.59); Neutrophils # (auto) 7.61 K/uL (1.40-6.50); Neutrophils % (auto) 67.6 %; Platelet Count 272 K/uL (130-400); RDW Coefficient of Variation 17.6 % (11.5-14.5); Red Blood Count 3.95 M/uL (4.70-6.10); White Blood Count 11.27 K/ul (4.8-10.8)
[2022-11-26] MEDS: ERTAPENEM SODIUM 1,000 MG in SYRINGE 0 ML IV SCH (12:01)
[2022-11-26] MEDS ORDERED: HYDROCORTISONE HC 2.5% CRM 30GM TUBE EXT PRN (15:40)
--- NOTE | 2022-11-26 15:50 | Hospitalist Progress Note ---
Date of Service November 26, 2022 Assessment & Plan (1) Generalized weakness: (2) Pressure sore: (3) Poorly-controlled hypertension: (4) Weakness: (5) CAD (coronary artery disease): (6) Chronic heart failure with preserved ejection fraction (HFpEF): (7) Diabetes mellitus type 2 in obese: (8) Diastolic heart failure: (9) COPD (chronic obstructive pulmonary disease): (10) CKD (chronic kidney disease) stage 3, GFR 30-59 ml/min: (11) Obstructive sleep apnea on CPAP: Plan: Patient is a 77 yr male with H/O DM II, Chronic respiratory failure with hypoxia, on home oxygen, COPD, obstructive sleep apnea, asthma, restrictive lung disease, chronic diastolic CHF, hypertension, GERD, morbid obesity, slow transit constipation, chronic kidney disease, stage III, gout, depression, generalized anxiety disorder, presents with ambulatory dysfunction and weakness. Ambulatory dysfunction Generalized weakness Deconditioning Fall precautions May need Rehab Continue PT/OT Complicated UTI Urine culture: ESBL E.coli + Proteus mirabilis Chronic Fuller Catheter Continue Ertapenem (day 6) - will need 10 days total of abx tx Sacral erythema, deep tissue injury/pressure ulcer, POA Superficial abdominal wound Continue wound care External hemorrhoids +Anusol added, repositioning encouraged Chronic respiratory failure in setting of COPD, asthma Continue home oxygen CKD III Baseline Cr ~ 1.1-1.3 Monitor renal function current Cr 1.3 DM II Continue Insulin Monitor BGs Chronic diastolic heart failure Continue home diuretics Gout Continue allopurinol HTN Continue amlodipine, Coreg BPH Continue finasteride, tamsulosin Chronic diastolic congestive heart failure Continue torsemide Depression Continue paroxetine, trazodone RENE CPAP HS DVT Px: SQ Lovenox Code status: FULL CODE Dispo: Awaiting bed at [facility]. also okay with [facility], search pending A total of 35 minutes were spent with greater than 50% of that time face to face with the patient, personally reviewing all current laboratories, imaging studies, past medication reconciliation, outpatient chart review, and discussion with specialists to collaborate care for the patient with attending and utilization of translation services. Please see attending documentation for corrections and/or additions. Admission and Anticipated Discharge Date Admission Date: November 19, 2022 Supervising Physician Co-Signing Physician Notes Patient is seen and examined at bedside. States having some pain of the sacral region/hemorrhoids contributing as well. Denies any chest pain, shortness of breath, dizziness, nausea, abdominal pain. Physical Exam: Vitals signs as noted above General Appearance:Chronic ill appearing, no apparent distress Head: normocephalic, Atraumatic Eyes: normal inspection, EOMI Neck: supple, Trachea midline Respiratory/Chest: Normal breath sounds, CTA, No accessory muscle use Cardiovascular: S1, S2, + murmur Abdomen/GI:Soft, Non tender, Bowel sounds present Extremities/Musculoskeletal:normal inspection, no edema Neurologic/Psych:AAOX3, grossly no focal neurological deficits Skin: Sacral area erythematous with some excoriation, erythematous scrotum Complicated UTI Urine culture: ESBL E.coli + Proteus mirabilis Chronic Fuller Catheter Continue Ertapenem Plan to change Fluler catheter today Sacral erythema, deep tissue injury/pressure ulcer, POA Continue wound care External hemorrhoids Agree with Anusol Continue repositioning I personally reviewed the record. Patient is interviewed and examined at bedside. Patient's care is coordinated with Africa Cortez PA-C. Please refer to the documentation above for details of patient's presentation and for discussion of other issues. Subjective Patient is seen and examined at bedside States having sacral region pain, feels like his hemorrhoids are acting up Denies any chest pain, dyspnea, dizziness, nausea, abdominal pain Review of Systems Review of Systems: At least ten systems reviewed and negative except as noted in the HPI. Physical Exam Physical Exam: Gen: WD/WN, NAD, lying in bed, A&Ox3 but not situation, disheveled appearance HEENT: Normocephalic, atraumatic, conjunctivae moist, sclerae anicteric, mucous membranes moist Lung: Clear to Auscultation bilaterally, no wheezes/rales/rhonchi Heart: Regular rate, regular rhythm, no murmurs, rubs, or gallops Abdomen: Soft, NT, ND +BS x 4 Extremities: no edema Skin: Warm, no rash. + Sacral area erythematous with some excoriation, external hemorrhoid visualized, non-bleeding Results & Data Results & Data ([facility]) Vital Signs (Past 12 Hours) Vital Signs Temp Pulse Resp BP Pulse Ox O2 Del Method O2 Flow Rate 11/26/22 15:05 36.7 C 92 H 18 117/65 94 Nasal Cannula 2 11/26/22 09:18 Nasal Cannula 2 11/26/22 07:23 36.4 C L 89 18 129/75 94 Nasal Cannula 2 Laboratory Results Short CBC 11/26/22 Range/Units 06:41 WBC 11.27 H (4.8-10.8) K/ul Hgb 10.9 L (14.0-18.0) g/dl Hct 34.4 L (42.0-52.0) % Plt Count 272 (130-400) K/uL BMP 11/26/22 06:41 Sodium 139 Potassium 3.8 Chloride 102 Carbon Dioxide 33 H BUN 30 H Creatinine 1.19 Glucose 88 Calcium 9.1 (1) Pressure sore Pressure injury location: sacral region Pressure injury stage: unspecified pressure injury stage Qualified Code(s): L89.159 - Pressure ulcer of sacral region, unspecified stage
[2022-11-26] MEDS: allopurinoL 300 MG TAB PO SCH (20:21)
[2022-11-26] MEDS: traZODone HCL 50 MG TAB PO SCH (20:22)
[2022-11-26] MEDS: ENOXAPARIN INJ 40 MG/0.4 ML SYR SQ SCH (20:22)
[2022-11-26] MEDS: LANTUS PER UNIT CHARGE SQ SCH (20:26)
[2022-11-27 06:23] LABS: Hematocrit (blood only) 32.5 % (42.0-52.0); Hemoglobin 10.2 g/dl (14.0-18.0); Mean Corpuscular Hemoglobin 27.7 pg (25.0-34.0); Mean Corpuscular Hgb Conc 31.4 g/dL (32.0-36.0); Mean Corpuscular Volume 88.3 fL (80.0-100.0); Mean Platelet Volume 9.6 fL (9.4-12.4); Platelet Count 264 K/uL (130-400); RDW Coefficient of Variation 17.7 % (11.5-14.5); RDW Standard Deviation 56.7 fL (36.4-46.3); Red Blood Count 3.68 M/uL (4.70-6.10); White Blood Count 11.21 K/ul (4.8-10.8)
[2022-11-27 06:49] LABS: Calcium 9.1 mg/dl (8.5-10.1); Potassium 3.7 mmol/L (3.5-5.1)
[2022-11-27 06:54] LABS: BUN Creatinine Ratio 23.9 (10-20); Creatinine Clr Calc Pharmacy 61.6 ml/min; Est GFR (African American) 73.3 ml/min; Est GFR (Non-African American) 63.2 ml/min
[2022-11-27] MEDS: ADVANCED PROBIOTIC 1250 MG CAPSULE PO SCH (08:42)
[2022-11-27] MEDS: ATORVASTATIN 40 MG TAB PO SCH (08:42)
[2022-11-27] MEDS: INSULIN ASPART PER UNIT SC SCH ×4 (08:42→20:46)
[2022-11-27] MEDS: PARoxetine HCL 20 MG TAB PO SCH (08:42)
[2022-11-27] MEDS: ASPIRIN 81 MG ECTAB PO SCH (08:42)
[2022-11-27] MEDS: amLODIPine BESYLATE 5 MG TAB PO SCH (08:43)
[2022-11-27] MEDS: carvediloL 12.5 MG TAB PO SCH ×2 (08:43→17:47)
[2022-11-27] MEDS: TORSEMIDE 20 MG TAB PO SCH (08:43)
[2022-11-27] MEDS: TAMSULOSIN HCL 0.4 MG CAP PO SCH (08:43)
[2022-11-27] MEDS: FINASTERIDE 5 MG TAB PO SCH (08:43)
[2022-11-27] MEDS: MICONAZOLE NITRATE POWDER 43 GM EXT SCH ×3 (08:44→20:46)
[2022-11-27] MEDS: SENNA 8.6 MG TAB PO SCH (08:44)
[2022-11-27] MEDS: ERTAPENEM SODIUM 1,000 MG in SYRINGE 0 ML IV SCH (13:35)
--- NOTE | 2022-11-27 14:37 | Hospitalist Progress Note ---
Date of Service November 27, 2022 Assessment & Plan (1) Generalized weakness: (2) Pressure sore: (3) Poorly-controlled hypertension: (4) Weakness: (5) CAD (coronary artery disease): (6) Chronic heart failure with preserved ejection fraction (HFpEF): (7) Diabetes mellitus type 2 in obese: (8) Diastolic heart failure: (9) COPD (chronic obstructive pulmonary disease): (10) CKD (chronic kidney disease) stage 3, GFR 30-59 ml/min: (11) Obstructive sleep apnea on CPAP: Plan: Patient is a 77 yr male with H/O DM II, Chronic respiratory failure with hypoxia, on home oxygen, COPD, obstructive sleep apnea, asthma, restrictive lung disease, chronic diastolic CHF, hypertension, GERD, morbid obesity, slow transit constipation, chronic kidney disease, stage III, gout, depression, generalized anxiety disorder, presents with ambulatory dysfunction and weakness. Ambulatory dysfunction Generalized weakness, remote h/o cva Deconditioning Fall precautions Continue PT/OT - awaiting SNF placement, bed likely available on Wednesday Complicated UTI Urine culture: ESBL E.coli + Proteus mirabilis Chronic Fuller Catheter Continue Ertapenem (day 7) - will need 10 days total of abx tx Sacral erythema, deep tissue injury/pressure ulcer, POA Superficial abdominal wound Continue wound care, repositioning External hemorrhoids +Anusol added, repositioning encouraged Chronic respiratory failure in setting of COPD, asthma Continue home oxygen CKD III Baseline Cr ~ 1.1-1.3 Monitor renal function current Cr 1.3 DM II Continue Insulin Monitor BGs Chronic diastolic heart failure Continue home diuretics Gout Continue allopurinol HTN Continue amlodipine, Coreg BPH Continue finasteride, tamsulosin Chronic diastolic congestive heart failure Continue torsemide Depression + Admits to decreased motivation lately. Likely in part situational. Continue paroxetine, trazodone. Recommend PCP re-addressing on follow up RENE CPAP HS DVT Px: SQ Lovenox Code status: FULL CODE Dispo: Awaiting bed at [facility]. also okay with [facility], search pending - bed likely available Wednesday A total of 35 minutes were spent with greater than 50% of that time face to face with the patient, personally reviewing all current laboratories, imaging studies, past medication reconciliation, outpatient chart review, and discussion with specialists to collaborate care for the patient with attending and utilization of translation services. Please see attending documentation for corrections and/or additions. Admission and Anticipated Discharge Date Admission Date: November 19, 2022 Supervising Physician Co-Signing Physician Notes Patient is seen and examined at bedside. Offers no new complaints. Denies any chest pain, shortness of breath, dizziness, nausea, abdominal pain. Physical Exam: Vitals signs as noted above General Appearance:Chronic ill appearing, no apparent distress Head: normocephalic, Atraumatic Eyes: normal inspection, EOMI Neck: supple, Trachea midline Respiratory/Chest: Normal breath sounds, CTA, No accessory muscle use Cardiovascular: S1, S2, + murmur Abdomen/GI:Soft, Non tender, Bowel sounds present Extremities/Musculoskeletal:normal inspection, no edema Neurologic/Psych:AAOX3, grossly no focal neurological deficits Skin: Sacral area erythematous with some excoriation, erythematous scrotum Complicated UTI Urine culture: ESBL E.coli + Proteus mirabilis Chronic Fuller Catheter Continue Ertapenem Fuller catheter changed yesterday Plan to complete 10-day course of antibiotics Sacral erythema, deep tissue injury/pressure ulcer, POA Continue wound care External hemorrhoids Agree with Anusol Continue repositioning Plan to discharge to SNF as able I personally reviewed the record. Patient is interviewed and examined at bedside. Patient's care is coordinated with Africa Cortez PA-C. Please refer to the documentation above for details of patient's presentation and for discussion of other issues. Subjective Patient is seen and examined at bedside States having sacral region pain, still having pain with hemorrhoids but using Anusol Feeling down and ready to be discharged. Admits to feeling less motivated than he has in the past Denies any F/C, chest pain, dyspnea, dizziness, nausea, abdominal pain Review of Systems Review of Systems: At least ten systems reviewed and negative except as noted in the HPI. Physical Exam Physical Exam: Gen: WD/WN, NAD, lying in bed, A&Ox3 but not situation, disheveled appearance HEENT: Normocephalic, atraumatic, conjunctivae moist, sclerae anicteric, mucous membranes moist Lung: Clear to Auscultation bilaterally, no wheezes/rales/rhonchi Heart: Regular rate, regular rhythm, no murmurs, rubs, or gallops Abdomen: Soft, NT, ND +BS x 4 Extremities: no edema Skin: Warm, no rash. + Sacral area erythematous with some excoriation, erythematous scrotum Results & Data Results & Data ([facility]) Vital Signs (Past 12 Hours) Vital Signs Temp Pulse Resp BP Pulse Ox O2 Del Method O2 Flow Rate 11/27/22 07:38 Nasal Cannula 2 11/27/22 07:35 36.4 C L 84 16 155/72 H 98 Nasal Cannula 2 Laboratory Results Short CBC 11/27/22 Range/Units 05:56 WBC 11.21 H (4.8-10.8) K/ul Hgb 10.2 L (14.0-18.0) g/dl Hct 32.5 L (42.0-52.0) % Plt Count 264 (130-400) K/uL BMP 11/27/22 05:56 Sodium 140 Potassium 3.7 Chloride 102 Carbon Dioxide 34 H BUN 27 H Creatinine 1.13 Glucose 74 Calcium 9.1 (1) Pressure sore Pressure injury location: sacral region Pressure injury stage: unspecified pressure injury stage Qualified Code(s): L89.159 - Pressure ulcer of sacral region, unspecified stage
[2022-11-27] MEDS: allopurinoL 300 MG TAB PO SCH (20:45)
[2022-11-27] MEDS: traZODone HCL 50 MG TAB PO SCH (20:45)
[2022-11-27] MEDS: ENOXAPARIN INJ 40 MG/0.4 ML SYR SQ SCH (20:45)
[2022-11-27] MEDS: LANTUS PER UNIT CHARGE SQ SCH (20:53)
[2022-11-28] MEDS: INSULIN ASPART PER UNIT SC SCH ×4 (08:45→20:51)
[2022-11-28] MEDS: TORSEMIDE 20 MG TAB PO SCH (08:46)
[2022-11-28] MEDS: carvediloL 12.5 MG TAB PO SCH ×2 (08:46→17:42)
[2022-11-28] MEDS: ATORVASTATIN 40 MG TAB PO SCH (08:46)
[2022-11-28] MEDS: ADVANCED PROBIOTIC 1250 MG CAPSULE PO SCH (08:46)
[2022-11-28] MEDS: ASPIRIN 81 MG ECTAB PO SCH (08:46)
[2022-11-28] MEDS: amLODIPine BESYLATE 5 MG TAB PO SCH (08:46)
[2022-11-28] MEDS: PARoxetine HCL 20 MG TAB PO SCH (08:46)
[2022-11-28] MEDS: TAMSULOSIN HCL 0.4 MG CAP PO SCH (08:46)
[2022-11-28] MEDS: FINASTERIDE 5 MG TAB PO SCH (08:46)
[2022-11-28] MEDS: MICONAZOLE NITRATE POWDER 43 GM EXT SCH ×3 (08:47→20:50)
[2022-11-28] MEDS: SENNA 8.6 MG TAB PO SCH (08:47)
[2022-11-28] MEDS: ERTAPENEM SODIUM 1,000 MG in SYRINGE 0 ML IV SCH (12:53)
--- NOTE | 2022-11-28 15:00 | Hospitalist Progress Note ---
Date of Service November 28, 2022 Assessment & Plan (1) Generalized weakness: (2) Pressure sore: (3) Poorly-controlled hypertension: (4) Weakness: (5) CAD (coronary artery disease): (6) Chronic heart failure with preserved ejection fraction (HFpEF): (7) Diabetes mellitus type 2 in obese: (8) Diastolic heart failure: (9) COPD (chronic obstructive pulmonary disease): (10) CKD (chronic kidney disease) stage 3, GFR 30-59 ml/min: (11) Obstructive sleep apnea on CPAP: Plan: Patient is a 77 yr male with H/O DM II, Chronic respiratory failure with hypoxia, on home oxygen, COPD, obstructive sleep apnea, asthma, restrictive lung disease, chronic diastolic CHF, hypertension, GERD, morbid obesity, slow transit constipation, chronic kidney disease, stage III, gout, depression, generalized anxiety disorder, presents with ambulatory dysfunction and weakness. Ambulatory dysfunction Generalized weakness, remote h/o cva Deconditioning Fall precautions Continue PT/OT - awaiting SNF placement, bed likely available on Wednesday Complicated UTI Urine culture: ESBL E.coli + Proteus mirabilis Chronic Fuller Catheter Continue Ertapenem to complete 10 day course Continue current management Sacral erythema, deep tissue injury/pressure ulcer, POA Superficial abdominal wound Continue wound care, repositioning External hemorrhoids Continue Anusol, repositioning encouraged Chronic respiratory failure in setting of COPD, asthma Continue home oxygen CKD III Baseline Cr ~ 1.1-1.3 Monitor renal function current Cr 1.1 DM II Continue Insulin Monitor BGs Chronic diastolic heart failure Continue home diuretics Gout Continue allopurinol HTN Continue amlodipine, Coreg BPH Continue finasteride, tamsulosin Chronic diastolic congestive heart failure Continue torsemide Depression Decreased motivation Likely situational Continue paroxetine, trazodone RENE CPAP HS DVT Px: SQ Lovenox Code status: FULL CODE Disposition SNF as able Admission and Anticipated Discharge Date Admission Date: November 19, 2022 Subjective Patient is seen and examined at bedside States having poor sleep overnight Denies any chest pain, dyspnea, dizziness, nausea, abdominal pain Offers no complaints Waiting for placement Review of Systems Review of Systems: All systems reviewed & are unremarkable except as noted in Subjective Physical Exam Physical Exam: Physical Exam: Vitals signs as noted above General Appearance:Chronic ill appearing, no apparent distress Head: normocephalic, Atraumatic Eyes: normal inspection, EOMI Neck: supple, Trachea midline Respiratory/Chest: Normal breath sounds, CTA, No accessory muscle use Cardiovascular: S1, S2, + murmur Abdomen/GI:Soft, Non tender, Bowel sounds present Extremities/Musculoskeletal:normal inspection, no edema Neurologic/Psych:AAOX3, grossly no focal neurological deficits Skin: Sacral area erythematous with some excoriation, erythematous scrotum Results & Data Results & Data ([facility]) Vital Signs (Past 12 Hours) Vital Signs Temp Pulse Resp BP Pulse Ox O2 Del Method O2 Flow Rate 11/28/22 08:03 Nasal Cannula 2 11/28/22 07:35 36.5 C 91 H 16 127/69 100 Nasal Cannula 2 (1) Pressure sore Pressure injury location: sacral region Pressure injury stage: unspecified pressure injury stage Qualified Code(s): L89.159 - Pressure ulcer of sacral region, unspecified stage
[2022-11-28] MEDS: allopurinoL 300 MG TAB PO SCH (20:50)
[2022-11-28] MEDS: traZODone HCL 50 MG TAB PO SCH (20:50)
[2022-11-28] MEDS: LANTUS PER UNIT CHARGE SQ SCH (21:00)
[2022-11-28] MEDS: ENOXAPARIN INJ 40 MG/0.4 ML SYR SQ SCH (22:06)
[2022-11-29 07:01] LABS: Hemoglobin 9.9 g/dl (14.0-18.0); Mean Corpuscular Hemoglobin 27.8 pg (25.0-34.0); Mean Corpuscular Hgb Conc 31.9 g/dL (32.0-36.0); Mean Corpuscular Volume 87.1 fL (80.0-100.0); Mean Platelet Volume 9.9 fL (9.4-12.4); Platelet Count 277 K/uL (130-400); RDW Coefficient of Variation 17.6 % (11.5-14.5); RDW Standard Deviation 55.6 fL (36.4-46.3); Red Blood Count 3.56 M/uL (4.70-6.10)
[2022-11-29 07:21] LABS: Calcium 8.9 mg/dl (8.5-10.1); Potassium 3.6 mmol/L (3.5-5.1)
[2022-11-29 07:26] LABS: Est GFR (African American) 69.5 ml/min
[2022-11-29 07:27] LABS: BUN Creatinine Ratio 22.9 (10-20)
[2022-11-29] MEDS: INSULIN ASPART PER UNIT SC SCH ×4 (09:00→21:20)
[2022-11-29] MEDS: TAMSULOSIN HCL 0.4 MG CAP PO SCH (09:42)
[2022-11-29] MEDS: carvediloL 12.5 MG TAB PO SCH ×2 (09:42→18:20)
[2022-11-29] MEDS: FINASTERIDE 5 MG TAB PO SCH (09:42)
[2022-11-29] MEDS: ATORVASTATIN 40 MG TAB PO SCH (09:42)
[2022-11-29] MEDS: PARoxetine HCL 20 MG TAB PO SCH (09:42)
[2022-11-29] MEDS: ASPIRIN 81 MG ECTAB PO SCH (09:42)
[2022-11-29] MEDS: SENNA 8.6 MG TAB PO SCH (09:42)
[2022-11-29] MEDS: TORSEMIDE 20 MG TAB PO SCH (09:42)
[2022-11-29] MEDS: amLODIPine BESYLATE 5 MG TAB PO SCH (09:42)
[2022-11-29] MEDS: ADVANCED PROBIOTIC 1250 MG CAPSULE PO SCH (09:43)
[2022-11-29] MEDS: MICONAZOLE NITRATE POWDER 43 GM EXT SCH ×3 (09:43→20:10)
[2022-11-29] MEDS: ERTAPENEM SODIUM 1,000 MG in SYRINGE 0 ML IV SCH (13:31)
--- NOTE | 2022-11-29 15:38 | Hospitalist Progress Note ---
Date of Service November 29, 2022 Assessment & Plan (1) Generalized weakness: (2) Pressure sore: (3) Poorly-controlled hypertension: (4) Weakness: (5) CAD (coronary artery disease): (6) Chronic heart failure with preserved ejection fraction (HFpEF): (7) Diabetes mellitus type 2 in obese: (8) Diastolic heart failure: (9) COPD (chronic obstructive pulmonary disease): (10) CKD (chronic kidney disease) stage 3, GFR 30-59 ml/min: (11) Obstructive sleep apnea on CPAP: Plan: Patient is a 77 yr male with H/O DM II, Chronic respiratory failure with hypoxia, on home oxygen, COPD, obstructive sleep apnea, asthma, restrictive lung disease, chronic diastolic CHF, hypertension, GERD, morbid obesity, slow transit constipation, chronic kidney disease, stage III, gout, depression, generalized anxiety disorder, presents with ambulatory dysfunction and weakness. Ambulatory dysfunction Generalized weakness, remote h/o cva Deconditioning Fall precautions Continue PT/OT - awaiting SNF placement Likely discharge to SNF tomorrow Complicated UTI Urine culture: ESBL E.coli + Proteus mirabilis Chronic Fuller Catheter Continue Ertapenem to complete 10 day course We will complete IV antibiotic course tomorrow Sacral erythema, deep tissue injury/pressure ulcer, POA Superficial abdominal wound Continue wound care, repositioning External hemorrhoids Continue Anusol, repositioning encouraged Chronic respiratory failure in setting of COPD, asthma Continue home oxygen CKD III Baseline Cr ~ 1.1-1.3 Monitor renal function current Cr 1.1 DM II Continue Insulin Monitor BGs Chronic diastolic heart failure Continue home diuretics Gout Continue allopurinol HTN Continue amlodipine, Coreg BPH Continue finasteride, tamsulosin Chronic diastolic congestive heart failure Continue torsemide Depression Decreased motivation Likely situational Continue paroxetine, trazodone RENE CPAP HS DVT Px: SQ Lovenox Code status: FULL CODE Disposition SNF as able Admission and Anticipated Discharge Date Admission Date: November 19, 2022 Subjective Patient is seen and examined at bedside No new complaints today Feels well Discussed with patient's family at bedside Denies any chest pain, dyspnea, dizziness, nausea, abdominal pain Waiting for placement Review of Systems Review of Systems: All systems reviewed & are unremarkable except as noted in Subjective Physical Exam Physical Exam: Physical Exam: Vitals signs as noted above General Appearance:Chronic ill appearing, no apparent distress Head: normocephalic, Atraumatic Eyes: normal inspection, EOMI Neck: supple, Trachea midline Respiratory/Chest: Normal breath sounds, CTA, No accessory muscle use Cardiovascular: S1, S2, + murmur Abdomen/GI:Soft, Non tender, Bowel sounds present Extremities/Musculoskeletal:normal inspection, no edema Neurologic/Psych:AAOX3, grossly no focal neurological deficits Skin: Sacral area erythematous with some excoriation, erythematous scrotum Results & Data Results & Data ([facility]) Vital Signs (Past 12 Hours) Vital Signs Temp Pulse Resp BP Pulse Ox O2 Del Method 11/29/22 07:40 36.9 C 84 16 128/72 91 Room Air Laboratory Results Short CBC 11/29/22 Range/Units 06:20 WBC 10.00 (4.8-10.8) K/ul Hgb 9.9 L (14.0-18.0) g/dl Hct 31.0 L (42.0-52.0) % Plt Count 277 (130-400) K/uL BMP 11/29/22 06:20 Sodium 140 Potassium 3.6 Chloride 102 Carbon Dioxide 33 H BUN 27 H Creatinine 1.18 Glucose 85 Calcium 8.9 (1) Pressure sore Pressure injury location: sacral region Pressure injury stage: unspecified pressure injury stage Qualified Code(s): L89.159 - Pressure ulcer of sacral region, unspecified stage
[2022-11-29] MEDS: ENOXAPARIN INJ 40 MG/0.4 ML SYR SQ SCH (20:09)
[2022-11-29] MEDS: traZODone HCL 50 MG TAB PO SCH (20:10)
[2022-11-29] MEDS: allopurinoL 300 MG TAB PO SCH (20:10)
[2022-11-29] MEDS: LANTUS PER UNIT CHARGE SQ SCH (21:20)
[2022-11-30] MEDS: ATORVASTATIN 40 MG TAB PO SCH (09:44)
[2022-11-30] MEDS: ASPIRIN 81 MG ECTAB PO SCH (09:45)
[2022-11-30] MEDS: TAMSULOSIN HCL 0.4 MG CAP PO SCH (09:45)
[2022-11-30] MEDS: PARoxetine HCL 20 MG TAB PO SCH (09:45)
[2022-11-30] MEDS: FINASTERIDE 5 MG TAB PO SCH (09:45)
[2022-11-30] MEDS: ADVANCED PROBIOTIC 1250 MG CAPSULE PO SCH (09:46)
[2022-11-30] MEDS: SENNA 8.6 MG TAB PO SCH (09:47)
[2022-11-30] MEDS: TORSEMIDE 20 MG TAB PO SCH (09:47)
[2022-11-30] MEDS: carvediloL 12.5 MG TAB PO SCH (09:47)
[2022-11-30] MEDS: amLODIPine BESYLATE 5 MG TAB PO SCH (09:48)
[2022-11-30] MEDS: MICONAZOLE NITRATE POWDER 43 GM EXT SCH (09:49)
[2022-11-30] MEDS: INSULIN ASPART PER UNIT SC SCH ×2 (09:57→12:34)
[2022-11-30] MEDS: ERTAPENEM SODIUM 1,000 MG in SYRINGE 0 ML IV SCH (11:17)
[2022-11-30] MEDS: ACETAMINOPHEN 325 MG TAB PO PRN (11:54)
--- NOTE | 2022-11-30 12:21 | Hospitalist Progress Note ---
Date of Service November 30, 2022 Assessment & Plan (1) Generalized weakness: (2) Pressure sore: (3) Poorly-controlled hypertension: (4) Weakness: (5) CAD (coronary artery disease): (6) Chronic heart failure with preserved ejection fraction (HFpEF): (7) Diabetes mellitus type 2 in obese: (8) Diastolic heart failure: (9) COPD (chronic obstructive pulmonary disease): (10) CKD (chronic kidney disease) stage 3, GFR 30-59 ml/min: (11) Obstructive sleep apnea on CPAP: Plan: Patient is a 77 yr male with H/O DM II, Chronic respiratory failure with hypoxia, on home oxygen, COPD, obstructive sleep apnea, asthma, restrictive lung disease, chronic diastolic CHF, hypertension, GERD, morbid obesity, slow transit constipation, chronic kidney disease, stage III, gout, depression, generalized anxiety disorder, presents with ambulatory dysfunction and weakness. Ambulatory dysfunction Generalized weakness, remote h/o cva Deconditioning Fall precautions Continue PT/OT - awaiting SNF placement Plan to discharge to SNF today Complicated UTI Urine culture: ESBL E.coli + Proteus mirabilis Chronic Fuller Catheter--Changed during hospital stay Completed Ertapenem 10 day course Sacral erythema, deep tissue injury/pressure ulcer, POA Superficial abdominal wound Continue wound care, repositioning External hemorrhoids Continue Anusol, repositioning encouraged Chronic respiratory failure in setting of COPD, asthma Continue home oxygen CKD III Baseline Cr ~ 1.1-1.3 Monitor renal function current Cr 1.1 DM II Continue Insulin Monitor BGs Chronic diastolic heart failure Continue home diuretics Gout Continue allopurinol HTN Continue amlodipine, Coreg BPH Continue finasteride, tamsulosin Chronic diastolic congestive heart failure Continue torsemide Depression Decreased motivation Likely situational Continue paroxetine, trazodone RENE CPAP HS DVT Px: SQ Lovenox Code status: FULL CODE Disposition SNF Admission and Anticipated Discharge Date Admission Date: November 19, 2022 Subjective Patient is seen and examined at bedside States having mild headache No other complaints Discussed with patient's family at bedside Plan to be discharged to SNF today Denies any chest pain, dyspnea, dizziness, nausea, abdominal pain Review of Systems Review of Systems: All systems reviewed & are unremarkable except as noted in Subjective Physical Exam Physical Exam: Physical Exam: Vitals signs as noted above General Appearance:Chronic ill appearing, no apparent distress Head: normocephalic, Atraumatic Eyes: normal inspection, EOMI Neck: supple, Trachea midline Respiratory/Chest: Normal breath sounds, CTA, No accessory muscle use Cardiovascular: S1, S2, + murmur Abdomen/GI:Soft, Non tender, Bowel sounds present Extremities/Musculoskeletal:normal inspection, no edema Neurologic/Psych:AAOX3, grossly no focal neurological deficits Skin: Sacral area erythematous with some excoriation, erythematous scrotum Results & Data Results & Data ([facility]) Vital Signs (Past 12 Hours) Vital Signs Temp Pulse Resp BP Pulse Ox O2 Del Method 11/30/22 09:50 80 138/71 95 Room Air 11/30/22 07:30 Room Air 11/30/22 07:21 36.6 C 80 16 121/62 95 Room Air (1) Pressure sore Pressure injury location: sacral region Pressure injury stage: unspecified pressure injury stage Qualified Code(s): L89.159 - Pressure ulcer of sacral region, unspecified stage
--- NOTE | 2022-11-30 12:43 | Discharge Summary ---
Date of Service November 30, 2022 Admission HPI Per Admitting Provider CHIEF COMPLAINT: Weakness, ambulatory dysfunction. HISTORY OF PRESENT ILLNESS: This is a 77-year-old male with past medical history significant for type 2 diabetes, hyperlipidemia, chronic kidney disease, stage III; chronic respiratory failure with hypoxia, on home oxygen; history of COPD, obstructive sleep apnea, CPAP at bedtime; asthma moderate persistent hypertension, chronic diastolic CHF, GERD, slow transit constipation, morbid obesity, history of gout, depression, generalized anxiety disorder, history of presumptive CAD as per records, was brought in by because of ambulatory dysfunction and weakness. The patient was here in 04/2022 with acute metabolic encephalopathy, SUKUMAR, respiratory failure with hypoxia and hypercapnia, history of underlying COPD, possible restrictive lung disease, blood pressure was poorly controlled and his metoprolol succinate was changed to Coreg. Restarted torsemide on discharge. Was discharged to [facility] at that time also because of weakness. Patient's says, prior to that hospitalization, he was able to walk . After last hospitalization in 04/22, he went to rehab and he stayed at rehab for 2-3 weeks and came home.Since then not at all ambulating. He is mostly bedbound. He has home health for 6 weeks afgter coming from rehab but now completely taken care by his . The patient is alert and awake, can tell his name, knows that he is in the hospital, could tell his date of , tell today's month and year. As per the , he is eating okay. No difficulty swallowing. The patient denies any headache. No chest pain, no abdominal pain. Has some back pain. No pain in the legs. No shortness of breath, no cough, no fevers, no runny nose, no sore throat. No nausea. Resting comfortably and hemodynamically stable. Admission Exam Per Admitting Provider PHYSICAL EXAMINATION: GENERAL: The patient is obese, not in acute distress. VITAL SIGNS: Temperature 36.3, pulse 81, respiratory rate 18, blood pressure 113/71, oxygen 96% on room air. HEENT: Pupils equal, round and reactive to light. Oral mucosa moist. NECK: No JVD, no neck masses. CARDIOVASCULAR: S1 and S2 heard. Regular rate and rhythm. No murmur, no gallop. RESPIRATORY SYSTEM: Normal AP diameter. No accessory muscle use. No wheezing, no crackles. ABDOMEN: Soft, bowel sounds present, nontender, no distention. CENTRAL NERVOUS SYSTEM: Alert and oriented to name, place and could tell today's month and year. Speech is clear. No facial droop. Obeys simple commands. Moves extremities. EXTREMITIES: No edema, no erythema. Principal Diagnosis Complicated urinary tract infection Sacral wound Ambulatory dysfunction External hemorrhoids Discharge Data Allergies Allergy/AdvReac Type Severity Reaction Status Date / Time minoxidil Allergy Intermediate RASH Verified 11/19/22 20:46 venlafaxine Allergy Intermediate HTN, SHAKEY Verified 11/19/22 20:46 amlodipine Allergy Unknown Unknown Verified 11/19/22 20:46 clonidine AdvReac Unknown INTOLERANT Verified 11/19/22 20:46 Consultations 11/19/22 19:13 ED Decision to Admit Stat Procedures Performed Laboratory Results WBC 10.00 K/ul (4.8-10.8) 11/29/22 06:20 RBC 3.56 M/uL (4.70-6.10) L 11/29/22 06:20 Hgb 9.9 g/dl (14.0-18.0) L 11/29/22 06:20 Hct 31.0 % (42.0-52.0) L 11/29/22 06:20 MCV 87.1 fL (80.0-100.0) 11/29/22 06:20 MCH 27.8 pg (25.0-34.0) 11/29/22 06:20 MCHC 31.9 g/dL (32.0-36.0) L 11/29/22 06:20 RDW Std Deviation 55.6 fL (36.4-46.3) H 11/29/22 06:20 RDW Coeff of Alfonso 17.6 % (11.5-14.5) H 11/29/22 06:20 Plt Count 277 K/uL (130-400) 11/29/22 06:20 MPV 9.9 fL (9.4-12.4) 11/29/22 06:20 Immature Gran % (Auto) 0.6 % 11/26/22 06:41 Neut % (Auto) 67.6 % 11/26/22 06:41 Lymph % (Auto) 17.1 % 11/26/22 06:41 [place] % (Auto) 6.0 % 11/26/22 06:41 Eos % (Auto) 8.2 % 11/26/22 06:41 Baso % (Auto) 0.5 % 11/26/22 06:41 Neut # (Auto) 7.61 K/uL (1.40-6.50) H 11/26/22 06:41 Lymph # (Auto) 1.93 K/uL (1.2-3.4) 11/26/22 06:41 [place] # (Auto) 0.68 K/uL (0.11-0.59) H 11/26/22 06:41 Eos # (Auto) 0.92 K/uL (0-0.50) H 11/26/22 06:41 Baso # (Auto) 0.06 K/uL (0-0.2) 11/26/22 06:41 Immature Gran # (Auto) 0.07 K/uL (0.01-0.20) 11/26/22 06:41 ESR 78 mm/hr (0-20) H 11/19/22 17:32 PT 11.4 Seconds (9.0-12.0) 11/19/22 20:44 INR 1.1 (0.9-1.1) 11/19/22 20:44 APTT 31.7 Seconds (21.0-31.0) H 11/19/22 20:44 PTT Ratio 1.2 11/19/22 20:44 Sodium 140 mmol/L (136-145) 11/29/22 06:20 Potassium 3.6 mmol/L (3.5-5.1) 11/29/22 06:20 Chloride 102 mmol/L (98-107) 11/29/22 06:20 Carbon Dioxide 33 mmol/L (21-32) H 11/29/22 06:20 Anion Gap 5 (3-11) 11/29/22 06:20 BUN 27 mg/dl (6-23) H 11/29/22 06:20 Creatinine 1.18 mg/dl (0.6-1.4) 11/29/22 06:20 Est Cr Clr Drug Dosing 59.0 ml/min 11/29/22 06:20 Est GFR ( Amer) 69.5 ml/min 11/29/22 06:20 Est GFR (Non-Af Amer) 60.0 ml/min 11/29/22 06:20 BUN/Creatinine Ratio 22.9 (10-20) H 11/29/22 06:20 Glucose 85 mg/dl (70-99(Fasting)) 11/29/22 06:20 POC Glucose 76 mg/dl (70-99) 11/30/22 11:45 Estimat Average Glucose 103 mg/dl 11/20/22 05:15 Hemoglobin A1c 5.2 % (4.5-5.6) 11/20/22 05:15 Calcium 8.9 mg/dl (8.5-10.1) 11/29/22 06:20 Phosphorus 3.4 mg/dl (2.5-4.9) 11/25/22 05:48 Magnesium 1.9 mg/dl (1.7-2.4) 11/25/22 05:48 Total Bilirubin 0.8 mg/dl (0.2-1.0) 11/19/22 17:32 AST 10 U/L (13-39) L 11/19/22 17:32 ALT 6 U/L (7-52) L 11/19/22 17:32 Alkaline Phosphatase 68 U/L (34-104) 11/19/22 17:32 C-Reactive Protein 5.44 mg/dl (0-0.5) H 11/19/22 17:32 Total Protein 6.9 gm/dl (6.0-8.3) 11/19/22 17:32 Albumin 3.4 gm/dl (3.4-5.0) 11/19/22 17:32 Globulin 3.5 gm/dl (2.5-4.0) 11/19/22 17:32 Albumin/Globulin Ratio 1.0 (0.9-2) 11/19/22 17:32 Procalcitonin 0.19 ng/ml (0-0.5) 11/19/22 17:32 Urine Color Yellow 11/19/22 19:19 Urine Appearance Turbid (Clear) A 11/19/22 19:19 Urine pH 6.5 (4.5-7.5) 11/19/22 19:19 Ur Specific [place] 1.013 (1.000-1.030) 11/19/22 19:19 Urine Protein 1+ (Negative) H 11/19/22 19:19 Urine Glucose (UA) Negative (Negative) 11/19/22 19:19 Urine Ketones Negative (Negative) 11/19/22 19:19 Urine Blood 2+ (Negative) H 11/19/22 19:19 Urine Nitrite Negative (Negative) 11/19/22 19:19 Urine Bilirubin Negative (Negative) 11/19/22 19:19 Urine Urobilinogen Negative (Negative) 11/19/22 19:19 Ur Leukocyte Esterase 3+ (Negative) H 11/19/22 19:19 Urine WBC (Auto) >30 /hpf (0-5) H 11/19/22 19:19 Urine RBC (Auto) 10-30 /hpf (0-4) H 11/19/22 19:19 U Hyaline Cast (Auto) 0 /lpf (0-5) 11/19/22 19:19 U Epithel Cells (Auto) >30 /lpf (0-5) H 11/19/22 19:19 Urine Bacteria (Auto) 4+ (Negative) H 11/19/22 19:19 Urine Yeast Not Reportable 11/19/22 19:19 SARS-CoV-2, RNA, NAAT NEGATIVE (NEGATIVE) 11/30/22 Unknown Hospital Course (1) Generalized weakness: (2) Pressure sore: (3) Poorly-controlled hypertension: (4) Weakness: (5) CAD (coronary artery disease): (6) Chronic heart failure with preserved ejection fraction (HFpEF): (7) Diabetes mellitus type 2 in obese: (8) Diastolic heart failure: (9) COPD (chronic obstructive pulmonary disease): (10) CKD (chronic kidney disease) stage 3, GFR 30-59 ml/min: (11) Obstructive sleep apnea on CPAP: Patient is a 77 yr male with H/O DM II, Chronic respiratory failure with hypoxia, on home oxygen, COPD, obstructive sleep apnea, asthma, restrictive lung disease, chronic diastolic CHF, hypertension, GERD, morbid obesity, slow transit constipation, chronic kidney disease, stage III, gout, depression, generalized anxiety disorder, presents with ambulatory dysfunction and weakness. Ambulatory dysfunction Generalized weakness, remote h/o cva Deconditioning Fall precautions Continue PT/OT - awaiting SNF placement Plan to discharge to SNF today Complicated UTI Urine culture: ESBL E.coli + Proteus mirabilis Chronic Fuller Catheter--Changed during hospital stay Completed Ertapenem 10 day course Sacral erythema, deep tissue injury/pressure ulcer, POA Superficial abdominal wound Continue wound care, repositioning External hemorrhoids Continue Anusol, repositioning encouraged Chronic respiratory failure in setting of COPD, asthma Continue home oxygen CKD III Baseline Cr ~ 1.1-1.3 Monitor renal function current Cr 1.1 DM II Continue Insulin Monitor BGs Chronic diastolic heart failure Continue home diuretics Gout Continue allopurinol HTN Continue amlodipine, Coreg BPH Continue finasteride, tamsulosin Chronic diastolic congestive heart failure Continue torsemide Depression Decreased motivation Likely situational Continue paroxetine, trazodone RENE CPAP HS DVT Px: SQ Lovenox Code status: FULL CODE Disposition SNF Total Time Total Time Spent Total Time Spent (In Minutes): 45 minutes Discharge Plan Discharge Items Patient Disposition: Transfer Jail Fac Reason For Visit: Weakness Discharge Diagnosis: Complicated urinary tract infection Sacral wound Ambulatory dysfunction External hemorrhoids Activity: Per Instructions section Exercise/Sports: Gradually increase as tolerated Non-emergency contact: Primary Care Provider Call non-emergency contact if: you have any medication questions, your symptoms worsen, your pain is concerning for you and you have a fever Follow-up/Referrals: Oleksandr Ozuna MD [Primary Care Provider] - Diet: Carb Consistent or DM2 and Heart Healthy Diet Texture: Easy to Chew Addtl Attending Provider Instructions: Follow-up with your primary care physician in 1 week upon disc harge from rehab facility Follow-up with your urologist as needed --- Continue Sacral wound care at rehab facility Seek immediate medical attention if your symptoms reoccur or worsen Please take all medications as instructed on discharge list below. Please call if you have any questions or problems. You can reach a [facility] hospitalist on duty at [facility] 24 hours a day by calling [phone] Pending Studies at Discharge: No Stand-Alone Forms: My [facility] Skilled Items Patient informed of condition?: Yes DNR: No Discharge Level of Care: Skilled Communicable Disease: No Discharge Prognosis: Stable Lines: None Urinary Catheter: Yes Medications and DC Order Prescriptions: New hydrocortisone [Proctosol HC] 2.5 % Cream With Perineal Applicator 1 applic EXT Q6H PRN (Reason: hemorrhoids) Qty: 1 0RF Continued allopurinol 300 mg Tablet 300 mg PO HS amlodipine 5 mg tablet 5 mg PO QAM aspirin [Aspir-Low] 81 mg Tablet,Delayed Release (Dr/Ec) 81 mg PO DAILY carvedilol 12.5 mg tablet 12.5 mg PO BIDM torsemide 20 mg tablet 20 mg PO DAILY finasteride 5 mg tablet 5 mg PO QAM paroxetine HCl 40 mg tablet 40 mg PO QAM tamsulosin 0.4 mg capsule 0.4 mg PO QAM atorvastatin 40 mg Tablet 40 mg PO DAILY trazodone 50 mg tablet 50 mg PO HS sennosides 8.6 mg Capsule 8.6 mg PO DAILY Levemir FlexTouch U-100 Insuln 100 unit/mL (3 mL) insulin pen 24 unit SUBCUT QPM Discharge Orders: Discharge Order (Routine); Ordered 11/30/22 Ordered By: Chalo Sawyer Admission Data Admit Date/Time: 11/19/22 20:56 Attending Provider: Chalo Sawyer Admit Provider: Leo Velasco Primary Care Provider: Oleksandr Ozuna Other Providers: Leo Velasco ; [place] ; [place] ; [facility] Other Interventions: Discharge Summary Assessment (RN) Last Done: 11/30/22 11:19
== END 2022-11-30 13:39 | DRG 699 ==
LOC: ED 17:15 → 3E 20:56 → SUATTDRO 20:56 → 3E 22:04